=== PATIENT | female | born 1955 | race Caucasian/White ===

== ENCOUNTER 2016-09-27 13:20 | Inpatient (IN) | payer MEDICARE, MEDICAID ==
[2016-09-27] MEDS ORDERED: Tuberculin, PPD 5 Units/0.1 ML 1 ML MDV IDERM ONE (14:07)
--- NOTE | 2016-09-27 14:07 | PCM.HP ---
H&P History of Present Illness - General Date of Service: 09/27/16 Admit Problem/Dx: Femur fracture - right rehabilitation Source of Information: Patient, Old records History Limitations: Reports: No limitations - History of Present Illness Initial Comments - Free Text/Narative: This is a 61yo F transferred from [facility] for post op rehabilitation in Swing Bed for a right femur fracture. She has a referral for Dr. Ontiveros to f/u, rmoveal christel, Xray and assess. Patient states she is in pain on arrival but denies other concerns. Location: Reports: lower extremity, right Quality: Reports: Same as previous episode Severity: moderate Improves with: Reports: Medication Associated Symptoms: Reports: denies other symptoms - Related Data Allergies/Adverse Reactions: Allergies Allergy/AdvReac Type Severity Reaction Status Date / Time Penicillins Allergy Unknown Edema Verified 09/27/16 09:12 shellfish derived Allergy Unknown Anaphylactic Verified 09/27/16 09:12 Shock Sulfa (Sulfonamide Allergy Unknown Edema Verified 09/27/16 09:12 Antibiotics) clonidine AdvReac Intermediate Lethargy Verified 09/27/16 09:12 klonopin AdvReac Intermediate Lethargy Uncoded 09/27/16 09:12 Home Medications: Home Meds Montelukast Sodium [Singulair] 10 mg PO DAILY@1200 10/02/14 [History] guaiFENesin [Mucinex] 600 mg PO BID 10/02/14 [History] Insulin Glarg,Human.Rec.Analog [Lantus Solostar] 20 units SUBCUT BEDTIME pen [Rx] Lisinopril [Prinivil] 2.5 mg PO DAILY tablet 10/10/14 [Rx] Omeprazole 20 mg PO ACBRK 11/04/14 [History] predniSONE 20 mg PO DAILY 11/04/14 [History] Albuterol [Proventil Neb Soln] 2.5 mg INH QID neb 05/08/15 [Rx] Albuterol [Proair HFA] 1 puff INH Q4HR PRN 06/04/15 [History] Cholecalciferol (Vitamin D3) [Vitamin D3] 1,000 units PO DAILY@1200 06/04/15 [ History] Fluticasone Propionate [Flonase] 1 spray NASBOTH DAILY 11/11/15 [History] Formoterol [Perforomist] 20 mcg NEB BID 06/04/15 [History] Furosemide [Lasix] 40 mg PO DAILY 06/04/15 [History] Gabapentin [Neurontin] 600 mg PO TID 06/04/15 [History] Desvenlafaxine [Pristiq] 50 mg PO QPM 01/03/16 [History] Metoprolol Tartrate [Lopressor] 25 mg PO BID 01/03/16 [History] fentaNYL [Fentanyl] 50 mcg TD ASDIRECTED 01/03/16 [History] traMADol [Ultram] 50 mg PO QID 01/03/16 [History] LORazepam [Ativan] 0.5 mg PO TID 06/22/16 [History] Melatonin 5 mg PO BEDTIME 06/22/16 [History] Multivitamins [Childrens Chewable Vitamin] 1 tab PO DAILY@1200 06/22/16 [History ] Acetylcysteine [Mucomyst 10%] 1 inh INH BID 09/18/16 [History] Roflumilast [Daliresp] 500 mcg PO DAILY 09/18/16 [History] Acetaminophen [Tylenol Extra Strength] 1,000 mg PO TID 09/27/16 [History] Enoxaparin [Lovenox] 40 mg SUBCUT DAILY 09/27/16 [History] HYDROmorphone [Dilaudid] 2 - 4 mg PO Q4H PRN 09/27/16 [History] Lidocaine 5% [Lidoderm 5%] 1 patch TOP DAILY 09/27/16 [History] Nicotine [Nicotine Patch] 1 patch TD DAILY 09/27/16 [History] Nystatin 1 applic TP TID 09/27/16 [History] Sennosides/Docusate Sodium [Senna-Docusate Sodium] 1 tab PO BID 09/27/16 [ History] diphenhydrAMINE [Benadryl] 25 mg PO Q4H PRN 09/27/16 [History] Past Medical History HEENT History: Reports: Allergic rhinitis, Hard of hearing, Impaired vision, Other (see below) Other HEENT History: trach placed x 2 years ago Cardiovascular History: Reports: Heart Failure, Hypertension Respiratory History: Reports: COPD Other Respiratory History: SOB excessive plegm Gastrointestinal History: Reports: Chronic constipation, GERD Genitourinary History: Reports: Chronic renal insuffiency, UTI, recurrent Other Genitourinary History: no uti recently 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: Musculoskeletal History: Reports: Arthritis, Back pain, chronic, Neck pain, chronic Neurological History: Reports: Migraines Psychiatric History: Reports: Anxiety, Depression Endocrine/Metabolic History: Reports: Diabetes, type II Hematologic History: Reports: Anemia Dermatologic History: Reports: Other (see below) Other Dermatologic History: bruises easily - Infectious Disease History Infectious Disease History: Reports: VRE - Past Surgical History Other HEENT Surgeries/Procedures: Tracheostomy GI Surgical History: Reports: Hernia, abdominal Social & Family History - Family History Family Medical History: Noncontributory Cardiac: Reports: Hypertension Respiratory: Reports: Asthma, COPD Psychiatric: Reports: Anxiety - Tobacco Use Smoking Status *Q: Current Every Day Smoker Years of Tobacco use: 45 Packs/Tins Daily: 0.5 Used Tobacco, but Quit: No Month Tobacco Last Used: Apr Second Hand Smoke Exposure: Yes - Alcohol Use Days Per Week of Alcohol Use: 0 - Recreational Drug Use Recreational Drug Use: No Drug Use in Last 12 Months: No - Living Situation & Occupation Living situation: Reports: single, with significant other Occupation: disabled H&P Review of Systems - Review of Systems: Review Of Systems: ROS reveals no pertinent complaints other than HPI. Exam - Exam Exam: See Below - Vital Signs Weight: 83.461 kg - Exam General: alert, oriented, cooperative HEENT: PERRLA, Conjunctiva clear Neck: other (tracheostomy) Lungs: Normal respiratory effort, Decreased breath sounds Cardiovascular: regular rate, tachycardia Abdomen: normal bowel sounds, soft Back Exam: normal inspection Extremities: edema (2+) Peripheral Pulses: 2+: dorsalis pedis (L), dorsalis pedis (R) Skin: warm, dry, intact Neurological: cranial nerves intact, reflexes equal bilateral Neuro Extensive - Mental Status: alert, oriented x3, normal mood/affect Neuro Extensive - Motor, Sensory, Reflexes: CN II-XII intact *Q Meaningful Use (ADM) - VTE *Q VTE Criteria *Q: - Stroke *Q Stroke Criteria *Q: - AMI *Q AMI Criteria *Q: - Problem List (1) Anxiety SNOMED Code(s): 55147831 ICD Code: F41.9 - ANXIETY DISORDER, UNSPECIFIED Status: Acute (2) Femur fracture, right SNOMED Code(s): 97766275 ICD Code: S72.91XA - UNSP FRACTURE OF RIGHT FEMUR, INIT FOR CLOS FX Status : Acute Priority: High (3) CHF, Congestive heart failure SNOMED Code(s): 91730674 ICD Code: I50.9 - HEART FAILURE, UNSPECIFIED Status: Chronic Problem Details: 08/14/2013 Continue with Lasix po and weight will do Chem 8 today. (4) COLD, Chronic obstructive lung disease SNOMED Code(s): 09792618 ICD Code: J44.9 - CHRONIC OBSTRUCTIVE PULMONARY DISEASE, UNSPECIFIED Status : Chronic Priority: High Onset Date: Unknown Problem Details: 11/14/2014 patient was given a nebulizer on the ambulance and she doesnt seem in distress. Blood gases done via venous with ph 7.42 and pco2 67, po2 43.6 At this time will continue with normal meds as at home. (5) Chronic hypercapnic respiratory failure SNOMED Code(s): 495210105 ICD Code: J96.12 - CHRONIC RESPIRATORY FAILURE WITH HYPERCAPNIA Status: Chronic Priority: Medium (6) Tobacco abuse SNOMED Code(s): 449116236, 070018537 ICD Code: Z72.0 - TOBACCO USE Status: Chronic Priority: High Onset Date : 02/02/16 Problem List Initiated/Reviewed/Updated: Yes Assessment/Plan Comment:: Patient admitted as Swing Bed. Meds reconciled and PT/OT ordered. Dr. Ontiveros referral to be ordered.
[2016-09-27] MEDS ORDERED: HYDROMORPHONE 2 MG PO PRN (14:08)
[2016-09-27] MEDS ORDERED: diphenhydrAMINE 25 MG Cap PO PRN (14:08)
[2016-09-27] MEDS ORDERED: Albuterol 8 GM Inhaler INH PRN (14:08)
[2016-09-27] MEDS ORDERED: Non-Formulary Medication 1 Each (Fentanyl [Fentanyl] 50 MCG) TD SCH (14:15)
[2016-09-27] MEDS ORDERED: Albuterol/Ipratropium 3.0-0.5 MG/3 ML Neb Soln INH PRN (14:43)
[2016-09-27] MEDS ORDERED: Cholecalciferol (Vitamin D3) 2,000 Unit Cap ONE (14:44)
[2016-09-27] MEDS ORDERED: Montelukast 10 MG Tab ONE (14:45)
[2016-09-27] MEDS ORDERED: Gabapentin 600 MG Tab ONE (14:45)
[2016-09-27] MEDS ORDERED: Albuterol 0.083% 2.5 MG/3 ML Neb Soln INH SCH (16:00)
[2016-09-27] MEDS: Acetaminophen/oxyCODONE 325-5 MG Tab PO PRN ×3 (17:08→23:26)
[2016-09-27] MEDS: traMADol 50 MG Tab PO SCH ×2 (17:09→21:02)
[2016-09-27] MEDS: Omeprazole 20 MG Cap.CR PO SCH (17:11)
[2016-09-27] MEDS: fentaNYL 50 MCG/HR Transdermal Patch TRDERM SCH (17:15)
[2016-09-27] MEDS: Budesonide 0.5 MG/2 ML Neb Susp NEB SCH ×2 (17:15→22:19)
[2016-09-27] MEDS: Nicotine 21 MG/24 Hr Patch TRDERM SCH (17:18)
[2016-09-27] MEDS: Insulin Aspart 100 Units/ML 3 ML Pen SUBCUT SCH (17:31)
[2016-09-27] MEDS ORDERED: ACETYLCYSTEINE INH SCH (20:00)
[2016-09-27] MEDS ORDERED: Acetaminophen 500 MG Tab PO SCH (20:00)
[2016-09-27] MEDS ORDERED: Non-Formulary Medication 1 Each (Melatonin [Melatonin] 5 MG) PO SCH (20:00)
[2016-09-27] MEDS ORDERED: Insulin Glargine,Human Rec. Analog 100 Units/ML 3 ML Pen SUBCUT SCH (20:00)
[2016-09-27] MEDS: Gabapentin 300 MG Cap PO SCH (20:56)
[2016-09-27] MEDS: Desvenlafaxine 50 MG Tab.ER PO SCH (20:57)
[2016-09-27] MEDS: Metoprolol Tartrate 25 MG Tab PO SCH (20:58)
[2016-09-27] MEDS: LORazepam 0.5 MG Tab PO SCH (21:01)
[2016-09-27] MEDS: Melatonin 3 MG Tab PO SCH (21:01)
[2016-09-27] MEDS: guaiFENesin 600 MG Tab.ER PO SCH (21:06)
[2016-09-27] MEDS: Insulin Detemir 100 Units/ML 3 ML Pen SUBCUT SCH (21:08)
[2016-09-27] MEDS: Acetylcysteine 20% 200 MG/ML 30 ML Nebulizer Soln SDV INH SCH (21:12)
[2016-09-27] MEDS: Nystatin Topical Powder 15 GM Bottle TOP SCH (23:12)
[2016-09-28] MEDS: Albuterol/Ipratropium 3.0-0.5 MG/3 ML Neb Soln INH SCH ×5 (03:40→20:30)
[2016-09-28] MEDS: Albuterol 0.083% 2.5 MG/3 ML Neb Soln INH PRN (04:16)
[2016-09-28] MEDS: Acetaminophen/oxyCODONE 325-5 MG Tab PO PRN (06:19)
[2016-09-28] MEDS: Omeprazole 20 MG Cap.CR PO SCH (06:58)
[2016-09-28] MEDS ORDERED: Nicotine 7 MG/24 Hr Patch TRDERM SCH (08:00)
[2016-09-28] MEDS: Enoxaparin 40 MG/0.4 ML Syringe SUBCUT SCH (08:27)
[2016-09-28] MEDS: LORazepam 0.5 MG Tab PO SCH ×4 (08:27→20:29)
[2016-09-28] MEDS: Metoprolol Tartrate 25 MG Tab PO SCH ×2 (08:27→20:27)
[2016-09-28] MEDS: Furosemide 20 MG Tab PO SCH (08:28)
[2016-09-28] MEDS: traMADol 50 MG Tab PO SCH ×4 (08:28→20:29)
[2016-09-28] MEDS: Gabapentin 300 MG Cap PO SCH ×4 (08:29→20:27)
[2016-09-28] MEDS: predniSONE 5 MG Tab PO SCH (08:29)
[2016-09-28] MEDS: Lisinopril 2.5 MG Tab PO SCH (08:29)
[2016-09-28] MEDS: Roflumilast 500 MCG Tab PO SCH (08:29)
[2016-09-28] MEDS: Nystatin Topical Powder 15 GM Bottle TOP SCH ×2 (08:31→13:29)
[2016-09-28] MEDS: Insulin Aspart 100 Units/ML 3 ML Pen SUBCUT SCH ×3 (08:31→17:22)
[2016-09-28] MEDS: glipiZIDE 2.5 MG Tab.ER PO SCH (08:32)
[2016-09-28] MEDS: guaiFENesin 600 MG Tab.ER PO SCH ×2 (08:32→20:28)
[2016-09-28] MEDS: Fluticasone Propionate Nasal Spray 16 GM Bottle NASBOTH SCH (08:34)
[2016-09-28] MEDS: Budesonide 0.5 MG/2 ML Neb Susp NEB SCH ×2 (08:34→21:40)
[2016-09-28] MEDS: Lidocaine 5% 700 MG Patch TOP SCH (08:35)
[2016-09-28] MEDS: Acetylcysteine 20% 200 MG/ML 30 ML Nebulizer Soln SDV INH SCH (08:38)
[2016-09-28] MEDS ORDERED: Acetaminophen/HYDROcodone 325-10 MG Tab ONE (11:33)
[2016-09-28] MEDS ORDERED: diphenhydrAMINE 50 MG Cap ONE (11:34)
[2016-09-28] MEDS: Cholecalciferol (Vitamin D3) 1,000 Unit Tab PO SCH (12:43)
[2016-09-28] MEDS: Montelukast 10 MG Tab PO SCH (12:43)
[2016-09-28] MEDS: Multivitamin, Childrens Tab.Chew PO SCH (12:43)
[2016-09-28] MEDS: Non-Formulary Medication 1 Each (Umeclidinium Bromide [Incruse Ellipta] 1 PUFF) IH SCH (12:44)
[2016-09-28] MEDS: Nicotine 21 MG/24 Hr Patch TRDERM SCH (15:52)
[2016-09-28] MEDS: diphenhydrAMINE 50 MG Cap PO PRN (15:53)
[2016-09-28] MEDS: Acetaminophen/HYDROcodone 325-10 MG Tab PO PRN ×2 (15:53→21:50)
[2016-09-28] MEDS: Melatonin 3 MG Tab PO SCH (20:27)
[2016-09-28] MEDS: Desvenlafaxine 50 MG Tab.ER PO SCH (20:29)
[2016-09-28] MEDS: Insulin Detemir 100 Units/ML 3 ML Pen SUBCUT SCH (21:45)
[2016-09-29] MEDS: Acetaminophen/HYDROcodone 325-10 MG Tab PO PRN ×4 (04:22→21:13)
[2016-09-29] MEDS: Albuterol 0.083% 2.5 MG/3 ML Neb Soln INH PRN ×3 (04:30→21:14)
[2016-09-29] MEDS: Omeprazole 20 MG Cap.CR PO SCH (07:45)
[2016-09-29] MEDS: Insulin Aspart 100 Units/ML 3 ML Pen SUBCUT SCH ×3 (08:00→17:00)
[2016-09-29] MEDS: LORazepam 0.5 MG Tab PO SCH ×3 (08:10→20:57)
[2016-09-29] MEDS: Roflumilast 500 MCG Tab PO SCH (08:10)
[2016-09-29] MEDS: Lidocaine 5% 700 MG Patch TOP SCH (08:15)
[2016-09-29] MEDS: predniSONE 5 MG Tab PO SCH (08:15)
[2016-09-29] MEDS: Lisinopril 2.5 MG Tab PO SCH (08:15)
[2016-09-29] MEDS: Gabapentin 300 MG Cap PO SCH ×3 (08:15→20:58)
[2016-09-29] MEDS: Enoxaparin 40 MG/0.4 ML Syringe SUBCUT SCH (08:15)
[2016-09-29] MEDS: Fluticasone Propionate Nasal Spray 16 GM Bottle NASBOTH SCH (08:15)
[2016-09-29] MEDS: glipiZIDE 2.5 MG Tab.ER PO SCH (08:15)
[2016-09-29] MEDS: Furosemide 20 MG Tab PO SCH (08:15)
[2016-09-29] MEDS: Metoprolol Tartrate 25 MG Tab PO SCH ×2 (08:15→20:59)
[2016-09-29] MEDS: guaiFENesin 600 MG Tab.ER PO SCH ×2 (08:15→21:02)
[2016-09-29] MEDS: Non-Formulary Medication 1 Each (Umeclidinium Bromide [Incruse Ellipta] 1 PUFF) IH SCH (08:50)
[2016-09-29] MEDS: Budesonide 0.5 MG/2 ML Neb Susp NEB SCH ×2 (09:00→20:57)
[2016-09-29] MEDS: Acetylcysteine 20% 200 MG/ML 30 ML Nebulizer Soln SDV INH SCH ×2 (09:00→20:55)
[2016-09-29] MEDS: traMADol 50 MG Tab PO SCH ×4 (10:16→20:58)
[2016-09-29] MEDS: Albuterol/Ipratropium 3.0-0.5 MG/3 ML Neb Soln INH SCH ×4 (10:21→21:16)
[2016-09-29] MEDS: Multivitamin, Childrens Tab.Chew PO SCH (11:44)
[2016-09-29] MEDS: Cholecalciferol (Vitamin D3) 1,000 Unit Tab PO SCH (11:45)
[2016-09-29] MEDS: Montelukast 10 MG Tab PO SCH (11:45)
[2016-09-29] MEDS: Nystatin Topical Powder 15 GM Bottle TOP SCH ×2 (13:27→20:59)
[2016-09-29] MEDS: Nicotine 21 MG/24 Hr Patch TRDERM SCH (16:58)
[2016-09-29] MEDS: Desvenlafaxine 50 MG Tab.ER PO SCH (20:58)
[2016-09-29] MEDS: Melatonin 3 MG Tab PO SCH (20:59)
[2016-09-29] MEDS: Insulin Detemir 100 Units/ML 3 ML Pen SUBCUT SCH (21:16)
[2016-09-30] MEDS: Acetaminophen/HYDROcodone 325-10 MG Tab PO PRN ×6 (01:38→22:18)
[2016-09-30] MEDS: diphenhydrAMINE 50 MG Cap PO PRN ×2 (05:37→22:24)
[2016-09-30] MEDS: Omeprazole 20 MG Cap.CR PO SCH (06:15)
[2016-09-30] MEDS: Lisinopril 2.5 MG Tab PO SCH (08:01)
[2016-09-30] MEDS: Furosemide 20 MG Tab PO SCH (08:01)
[2016-09-30] MEDS: traMADol 50 MG Tab PO SCH ×4 (08:02→20:37)
[2016-09-30] MEDS: Metoprolol Tartrate 25 MG Tab PO SCH ×2 (08:02→20:38)
[2016-09-30] MEDS: Gabapentin 300 MG Cap PO SCH ×3 (08:03→20:37)
[2016-09-30] MEDS: LORazepam 0.5 MG Tab PO SCH ×3 (08:04→20:36)
[2016-09-30] MEDS: Roflumilast 500 MCG Tab PO SCH (08:04)
[2016-09-30] MEDS: glipiZIDE 2.5 MG Tab.ER PO SCH (08:04)
[2016-09-30] MEDS: predniSONE 5 MG Tab PO SCH (08:04)
[2016-09-30] MEDS: Fluticasone Propionate Nasal Spray 16 GM Bottle NASBOTH SCH (08:05)
[2016-09-30] MEDS: Enoxaparin 40 MG/0.4 ML Syringe SUBCUT SCH (08:05)
[2016-09-30] MEDS: Lidocaine 5% 700 MG Patch TOP SCH (08:05)
[2016-09-30] MEDS: Nystatin Topical Powder 15 GM Bottle TOP SCH ×4 (08:06→20:47)
[2016-09-30] MEDS: guaiFENesin 600 MG Tab.ER PO SCH ×2 (08:07→20:36)
[2016-09-30] MEDS: Albuterol/Ipratropium 3.0-0.5 MG/3 ML Neb Soln INH SCH ×4 (08:07→20:40)
[2016-09-30] MEDS: Budesonide 0.5 MG/2 ML Neb Susp NEB SCH ×2 (08:07→20:37)
[2016-09-30] MEDS: Acetylcysteine 20% 200 MG/ML 30 ML Nebulizer Soln SDV INH SCH ×2 (08:07→20:36)
[2016-09-30] MEDS: Insulin Aspart 100 Units/ML 3 ML Pen SUBCUT SCH ×3 (08:14→17:20)
[2016-09-30] MEDS: Non-Formulary Medication 1 Each (Umeclidinium Bromide [Incruse Ellipta] 1 PUFF) IH SCH (10:55)
[2016-09-30] MEDS: Multivitamin, Childrens Tab.Chew PO SCH (12:37)
[2016-09-30] MEDS: Montelukast 10 MG Tab PO SCH (12:37)
[2016-09-30] MEDS: Cholecalciferol (Vitamin D3) 1,000 Unit Tab PO SCH (12:38)
[2016-09-30] MEDS: Albuterol 0.083% 2.5 MG/3 ML Neb Soln INH PRN ×2 (13:34→20:46)
[2016-09-30] MEDS: Ketorolac 60 MG/2 ML SDV IM PRN ×2 (14:17→22:17)
[2016-09-30] MEDS: fentaNYL 50 MCG/HR Transdermal Patch TRDERM SCH (16:05)
[2016-09-30] MEDS: Nicotine 21 MG/24 Hr Patch TRDERM SCH (16:06)
[2016-09-30] MEDS ORDERED: oxyCODONE 5 MG Tab PO PRN (16:58)
[2016-09-30] MEDS: Insulin Detemir 100 Units/ML 3 ML Pen SUBCUT SCH (20:20)
[2016-09-30] MEDS: Desvenlafaxine 50 MG Tab.ER PO SCH (20:36)
[2016-09-30] MEDS: Melatonin 3 MG Tab PO SCH (20:39)
[2016-10-01] MEDS: Acetaminophen/HYDROcodone 325-10 MG Tab PO PRN ×3 (03:10→20:26)
[2016-10-01] MEDS: Omeprazole 20 MG Cap.CR PO SCH (06:10)
[2016-10-01] MEDS ORDERED: Albuterol 0.083% 2.5 MG/3 ML Neb Soln ONE (06:14)
[2016-10-01] MEDS: predniSONE 5 MG Tab PO SCH (08:05)
[2016-10-01] MEDS: Roflumilast 500 MCG Tab PO SCH (08:06)
[2016-10-01] MEDS: Lisinopril 2.5 MG Tab PO SCH (08:06)
[2016-10-01] MEDS: Metoprolol Tartrate 25 MG Tab PO SCH ×2 (08:11→20:19)
[2016-10-01] MEDS: traMADol 50 MG Tab PO SCH ×4 (08:11→20:25)
[2016-10-01] MEDS: Lidocaine 5% 700 MG Patch TOP SCH (08:12)
[2016-10-01] MEDS: LORazepam 0.5 MG Tab PO SCH ×3 (08:12→20:25)
[2016-10-01] MEDS: Gabapentin 300 MG Cap PO SCH ×3 (08:12→20:25)
[2016-10-01] MEDS: Enoxaparin 40 MG/0.4 ML Syringe SUBCUT SCH (08:13)
[2016-10-01] MEDS: guaiFENesin 600 MG Tab.ER PO SCH ×2 (08:20→20:28)
[2016-10-01] MEDS: glipiZIDE 2.5 MG Tab.ER PO SCH (08:20)
[2016-10-01] MEDS: Furosemide 20 MG Tab PO SCH (08:20)
[2016-10-01] MEDS: Nystatin Topical Powder 15 GM Bottle TOP SCH ×3 (08:21→20:28)
[2016-10-01] MEDS: Fluticasone Propionate Nasal Spray 16 GM Bottle NASBOTH SCH (08:22)
[2016-10-01] MEDS: Albuterol/Ipratropium 3.0-0.5 MG/3 ML Neb Soln INH SCH ×4 (08:22→20:28)
[2016-10-01] MEDS: Insulin Aspart 100 Units/ML 3 ML Pen SUBCUT SCH ×3 (08:24→18:04)
[2016-10-01] MEDS: Non-Formulary Medication 1 Each (Umeclidinium Bromide [Incruse Ellipta] 1 PUFF) IH SCH (08:26)
[2016-10-01] MEDS: Budesonide 0.5 MG/2 ML Neb Susp NEB SCH ×2 (08:26→20:29)
[2016-10-01] MEDS ORDERED: traMADol 50 MG Tab ONE (08:37)
[2016-10-01] MEDS: Ketorolac 60 MG/2 ML SDV IM PRN ×2 (09:25→18:17)
[2016-10-01] MEDS: Acetylcysteine 20% 200 MG/ML 30 ML Nebulizer Soln SDV INH SCH ×2 (10:05→20:28)
[2016-10-01] MEDS ORDERED: Ketorolac 10 MG Tab ONE (10:55)
[2016-10-01] MEDS: Albuterol 0.083% 2.5 MG/3 ML Neb Soln INH PRN ×2 (17:07→23:29)
[2016-10-01] MEDS: Multivitamin, Childrens Tab.Chew PO SCH (18:07)
[2016-10-01] MEDS: Montelukast 10 MG Tab PO SCH (18:08)
[2016-10-01] MEDS: Cholecalciferol (Vitamin D3) 1,000 Unit Tab PO SCH (18:08)
[2016-10-01] MEDS: Nicotine 21 MG/24 Hr Patch TRDERM SCH (18:09)
[2016-10-01] MEDS: Melatonin 3 MG Tab PO SCH (20:25)
[2016-10-01] MEDS: diphenhydrAMINE 50 MG Cap PO PRN (20:26)
[2016-10-01] MEDS: Desvenlafaxine 50 MG Tab.ER PO SCH (20:28)
[2016-10-01] MEDS: Insulin Detemir 100 Units/ML 3 ML Pen SUBCUT SCH (20:37)
[2016-10-02] MEDS: Acetaminophen/HYDROcodone 325-10 MG Tab PO PRN ×3 (03:44→20:40)
[2016-10-02] MEDS: Albuterol/Ipratropium 3.0-0.5 MG/3 ML Neb Soln INH SCH ×5 (05:42→20:09)
[2016-10-02] MEDS: diphenhydrAMINE 50 MG Cap PO PRN ×3 (05:57→20:39)
[2016-10-02] MEDS: Omeprazole 20 MG Cap.CR PO SCH ×2 (05:57→07:34)
[2016-10-02] MEDS: Albuterol 0.083% 2.5 MG/3 ML Neb Soln INH PRN ×2 (09:14→20:40)
[2016-10-02] MEDS: predniSONE 5 MG Tab PO SCH (09:29)
[2016-10-02] MEDS: Roflumilast 500 MCG Tab PO SCH (09:32)
[2016-10-02] MEDS: Metoprolol Tartrate 25 MG Tab PO SCH ×2 (09:34→20:13)
[2016-10-02] MEDS: Acetylcysteine 20% 200 MG/ML 30 ML Nebulizer Soln SDV INH SCH ×2 (09:36→20:06)
[2016-10-02] MEDS: Lisinopril 2.5 MG Tab PO SCH (09:41)
[2016-10-02] MEDS: Gabapentin 300 MG Cap PO SCH ×3 (09:42→20:07)
[2016-10-02] MEDS: traMADol 50 MG Tab PO SCH ×4 (09:42→20:11)
[2016-10-02] MEDS: LORazepam 0.5 MG Tab PO SCH ×3 (09:43→20:12)
[2016-10-02] MEDS: Furosemide 20 MG Tab PO SCH (09:44)
[2016-10-02] MEDS: guaiFENesin 600 MG Tab.ER PO SCH ×2 (09:45→20:00)
[2016-10-02] MEDS: glipiZIDE 2.5 MG Tab.ER PO SCH (09:46)
[2016-10-02] MEDS: Fluticasone Propionate Nasal Spray 16 GM Bottle NASBOTH SCH (09:46)
[2016-10-02] MEDS: Lidocaine 5% 700 MG Patch TOP SCH (09:47)
[2016-10-02] MEDS: Enoxaparin 40 MG/0.4 ML Syringe SUBCUT SCH (09:47)
[2016-10-02] MEDS: Insulin Aspart 100 Units/ML 3 ML Pen SUBCUT SCH ×3 (10:04→18:29)
[2016-10-02] MEDS: Non-Formulary Medication 1 Each (Umeclidinium Bromide [Incruse Ellipta] 1 PUFF) IH SCH (10:18)
[2016-10-02] MEDS: Budesonide 0.5 MG/2 ML Neb Susp NEB SCH ×2 (10:18→20:09)
[2016-10-02] MEDS: Ketorolac 60 MG/2 ML SDV IM PRN (10:37)
[2016-10-02] MEDS: Cholecalciferol (Vitamin D3) 1,000 Unit Tab PO SCH (12:41)
[2016-10-02] MEDS: Multivitamin, Childrens Tab.Chew PO SCH (12:41)
[2016-10-02] MEDS: Montelukast 10 MG Tab PO SCH (12:41)
[2016-10-02] MEDS: Nicotine 21 MG/24 Hr Patch TRDERM SCH (16:24)
[2016-10-02] MEDS: Nystatin Topical Powder 15 GM Bottle TOP SCH ×2 (17:40→20:10)
[2016-10-02] MEDS ORDERED: predniSONE 10 MG Tab PO ONE (17:50)
[2016-10-02] MEDS: Desvenlafaxine 50 MG Tab.ER PO SCH (20:07)
[2016-10-02] MEDS: Melatonin 3 MG Tab PO SCH (20:12)
[2016-10-03] MEDS: Albuterol/Ipratropium 3.0-0.5 MG/3 ML Neb Soln INH SCH ×5 (01:14→20:07)
[2016-10-03] MEDS: Ketorolac 60 MG/2 ML SDV IM PRN ×3 (03:10→23:11)
[2016-10-03] MEDS: Insulin Detemir 100 Units/ML 3 ML Pen SUBCUT SCH ×2 (06:54→20:05)
[2016-10-03] MEDS: Budesonide 0.5 MG/2 ML Neb Susp NEB SCH ×3 (06:54→20:07)
[2016-10-03] MEDS: Albuterol 0.083% 2.5 MG/3 ML Neb Soln INH PRN ×2 (07:19→16:35)
[2016-10-03] MEDS: Acetylcysteine 20% 200 MG/ML 30 ML Nebulizer Soln SDV INH SCH ×2 (07:49→20:13)
[2016-10-03] MEDS: Furosemide 20 MG Tab PO SCH (07:54)
[2016-10-03] MEDS: traMADol 50 MG Tab PO SCH ×4 (07:55→20:06)
[2016-10-03] MEDS: Omeprazole 20 MG Cap.CR PO SCH (07:55)
[2016-10-03] MEDS ORDERED: methylPREDNISolone Sodium Succinate 125 MG/2 ML SDV ONE (07:55)
[2016-10-03] MEDS: Gabapentin 300 MG Cap PO SCH ×3 (07:57→20:03)
[2016-10-03] MEDS: LORazepam 0.5 MG Tab PO SCH ×2 (07:57→08:04)
[2016-10-03] MEDS: Lisinopril 2.5 MG Tab PO SCH (07:58)
[2016-10-03] MEDS: Roflumilast 500 MCG Tab PO SCH (07:59)
[2016-10-03] MEDS: Metoprolol Tartrate 25 MG Tab PO SCH ×2 (08:00→20:03)
[2016-10-03] MEDS: Nystatin Topical Powder 15 GM Bottle TOP SCH ×4 (08:00→20:28)
[2016-10-03] MEDS ORDERED: predniSONE 20 MG Tab PO SCH (08:00)
[2016-10-03] MEDS: guaiFENesin 600 MG Tab.ER PO SCH ×2 (08:01→20:27)
[2016-10-03] MEDS ORDERED: LORazepam 0.5 MG Tab ONE (08:03)
[2016-10-03] MEDS: glipiZIDE 2.5 MG Tab.ER PO SCH (08:03)
[2016-10-03] MEDS: Fluticasone Propionate Nasal Spray 16 GM Bottle NASBOTH SCH (08:13)
[2016-10-03] MEDS: Lidocaine 5% 700 MG Patch TOP SCH (08:14)
[2016-10-03] MEDS: Enoxaparin 40 MG/0.4 ML Syringe SUBCUT SCH (08:14)
[2016-10-03] MEDS: methylPREDNISolone Sodium Succinate 125 MG/2 ML SDV IVPUSH SCH ×3 (08:15→20:03)
[2016-10-03] MEDS: Sodium Chloride 0.9% 10 ML Syringe FLUSH PRN ×2 (08:20→14:45)
[2016-10-03] MEDS: Insulin Aspart 100 Units/ML 3 ML Pen SUBCUT SCH ×3 (08:39→17:19)
[2016-10-03] MEDS: Acetaminophen/HYDROcodone 325-10 MG Tab PO PRN ×3 (08:52→23:13)
[2016-10-03] MEDS: Non-Formulary Medication 1 Each (Umeclidinium Bromide [Incruse Ellipta] 1 PUFF) IH SCH (09:50)
[2016-10-03] MEDS: LORazepam 1 MG Tab PO SCH ×3 (10:03→23:12)
[2016-10-03] MEDS: Cholecalciferol (Vitamin D3) 1,000 Unit Tab PO SCH (12:03)
[2016-10-03] MEDS: Multivitamin, Childrens Tab.Chew PO SCH (12:03)
[2016-10-03] MEDS: Montelukast 10 MG Tab PO SCH (12:03)
[2016-10-03] MEDS ORDERED: cefTRIAXone 1 GM in Sodium Chloride 0.9% 50 ML IV ONE (12:31)
[2016-10-03] MEDS ORDERED: Ferrous Sulfate 325 MG Tab ONE (16:02)
[2016-10-03] MEDS: Ferrous Sulfate 325 MG Tab PO SCH (16:37)
[2016-10-03] MEDS: fentaNYL 50 MCG/HR Transdermal Patch TRDERM SCH (16:39)
[2016-10-03] MEDS: Nicotine 21 MG/24 Hr Patch TRDERM SCH (16:39)
[2016-10-03] MEDS: Desvenlafaxine 50 MG Tab.ER PO SCH (20:06)
[2016-10-03] MEDS: Melatonin 3 MG Tab PO SCH (20:07)
[2016-10-03] MEDS: diphenhydrAMINE 50 MG Cap PO PRN (23:12)
[2016-10-04] MEDS: Sodium Chloride 0.9% 10 ML Syringe FLUSH PRN (04:00)
[2016-10-04] MEDS: LORazepam 1 MG Tab PO SCH ×3 (04:24→16:16)
[2016-10-04] MEDS: Albuterol 0.083% 2.5 MG/3 ML Neb Soln INH PRN ×3 (04:27→16:13)
[2016-10-04] MEDS: methylPREDNISolone Sodium Succinate 125 MG/2 ML SDV IVPUSH SCH ×4 (04:28→22:51)
[2016-10-04] MEDS ORDERED: cefTRIAXone 1 GM Vial ONE (07:19)
[2016-10-04] MEDS: traMADol 50 MG Tab PO SCH ×4 (07:46→21:49)
[2016-10-04] MEDS: Ferrous Sulfate 325 MG Tab PO SCH (07:47)
[2016-10-04] MEDS: Omeprazole 20 MG Cap.CR PO SCH (07:47)
[2016-10-04] MEDS: Roflumilast 500 MCG Tab PO SCH (07:48)
[2016-10-04] MEDS: Furosemide 20 MG Tab PO SCH (07:50)
[2016-10-04] MEDS: guaiFENesin 600 MG Tab.ER PO SCH ×2 (07:51→20:44)
[2016-10-04] MEDS: Gabapentin 300 MG Cap PO SCH ×3 (07:52→20:44)
[2016-10-04] MEDS: Albuterol/Ipratropium 3.0-0.5 MG/3 ML Neb Soln INH SCH ×5 (08:42→20:44)
[2016-10-04] MEDS: glipiZIDE 2.5 MG Tab.ER PO SCH (09:00)
[2016-10-04] MEDS: Acetaminophen/HYDROcodone 325-10 MG Tab PO PRN (09:00)
[2016-10-04] MEDS: cefTRIAXone 1 GM in Sodium Chloride 0.9% 50 ML IV SCH (09:04)
[2016-10-04] MEDS: Acetylcysteine 20% 200 MG/ML 30 ML Nebulizer Soln SDV INH SCH ×2 (09:06→20:24)
[2016-10-04] MEDS: Fluticasone Propionate Nasal Spray 16 GM Bottle NASBOTH SCH (09:30)
[2016-10-04] MEDS: Metoprolol Tartrate 25 MG Tab PO SCH ×2 (09:32→20:44)
[2016-10-04] MEDS: Lisinopril 2.5 MG Tab PO SCH (09:33)
[2016-10-04] MEDS: Lidocaine 5% 700 MG Patch TOP SCH (09:38)
[2016-10-04] MEDS: Enoxaparin 40 MG/0.4 ML Syringe SUBCUT SCH (09:40)
[2016-10-04] MEDS: Insulin Aspart 100 Units/ML 3 ML Pen SUBCUT SCH ×3 (09:45→18:27)
--- NOTE | 2016-10-04 09:56 | PCM.SN ---
- Free Text/Narrative Note: Patient was seen over the weekend for complaints of sob. Patient evaluated with concerns of worsening COPD and increased WBC. Patient has chronically decreased breath sounds and expiratory wheezes b/l lower lung. Patient has been on prednisone but has had no fever or chills and denies malaise. CBC done also showed continued anemia likely acute from recent surgery. Patient started on iron supplementation. Given increased prednisone burst. Solumedrol given. Rocephin given. We will continue Rocephin and solumedrol at this time.
[2016-10-04] MEDS: Non-Formulary Medication 1 Each (Umeclidinium Bromide [Incruse Ellipta] 1 PUFF) IH SCH (10:05)
[2016-10-04] MEDS: Budesonide 0.5 MG/2 ML Neb Susp NEB SCH ×2 (10:13→20:45)
[2016-10-04] MEDS: Nystatin Topical Powder 15 GM Bottle TOP SCH ×3 (10:14→21:43)
--- NOTE | 2016-10-04 10:38 | CR ---
DATE OF SERVICE: 10/04/2016 CLINICAL DATA: Elevated WBC. AP PORTABLE CHEST Comparison is made to a prior exam dated 06/22/2016. The patient is slightly rotated to the right and is in an apical lordotic position. The tracheostomy tube remains unchanged in position. The heart size is stable. There are mild atelectatic changes in both lung bases. The lungs are otherwise clear. No pneumothorax. No pleural effusions. [id number] MTDD
[2016-10-04] MEDS: Cholecalciferol (Vitamin D3) 1,000 Unit Tab PO SCH (12:11)
[2016-10-04] MEDS: Montelukast 10 MG Tab PO SCH (12:11)
[2016-10-04] MEDS: Multivitamin, Childrens Tab.Chew PO SCH (12:11)
[2016-10-04] MEDS: Nicotine 21 MG/24 Hr Patch TRDERM SCH (16:26)
[2016-10-04] MEDS: Melatonin 3 MG Tab PO SCH (20:44)
[2016-10-04] MEDS: Desvenlafaxine 50 MG Tab.ER PO SCH (20:45)
[2016-10-04] MEDS: Insulin Detemir 100 Units/ML 3 ML Pen SUBCUT SCH (22:45)
[2016-10-04] MEDS ORDERED: predniSONE 20 MG Tab ONE (23:02)
[2016-10-05] MEDS: LORazepam 1 MG Tab PO SCH ×3 (00:32→16:50)
[2016-10-05] MEDS: Acetaminophen/HYDROcodone 325-10 MG Tab PO PRN ×3 (00:33→14:16)
[2016-10-05] MEDS: diphenhydrAMINE 50 MG Cap PO PRN ×2 (00:35→20:50)
[2016-10-05] MEDS: Omeprazole 20 MG Cap.CR PO SCH (07:07)
[2016-10-05] MEDS: Ferrous Sulfate 325 MG Tab PO SCH (07:07)
[2016-10-05] MEDS: Lidocaine 5% 700 MG Patch TOP SCH (08:58)
[2016-10-05] MEDS: Furosemide 20 MG Tab PO SCH (09:00)
[2016-10-05] MEDS: Lisinopril 2.5 MG Tab PO SCH (09:01)
[2016-10-05] MEDS: Gabapentin 300 MG Cap PO SCH ×3 (09:01→20:50)
[2016-10-05] MEDS: glipiZIDE 2.5 MG Tab.ER PO SCH (09:01)
[2016-10-05] MEDS: Metoprolol Tartrate 25 MG Tab PO SCH ×2 (09:02→21:44)
[2016-10-05] MEDS: Fluticasone Propionate Nasal Spray 16 GM Bottle NASBOTH SCH (09:11)
[2016-10-05] MEDS: Budesonide 0.5 MG/2 ML Neb Susp NEB SCH ×2 (09:12→20:38)
[2016-10-05] MEDS: Enoxaparin 40 MG/0.4 ML Syringe SUBCUT SCH (09:15)
[2016-10-05] MEDS: guaiFENesin 600 MG Tab.ER PO SCH ×2 (09:18→20:51)
[2016-10-05] MEDS: Acetylcysteine 20% 200 MG/ML 30 ML Nebulizer Soln SDV INH SCH ×2 (09:19→20:34)
[2016-10-05] MEDS: Albuterol/Ipratropium 3.0-0.5 MG/3 ML Neb Soln INH SCH ×4 (09:24→20:49)
[2016-10-05] MEDS: Roflumilast 500 MCG Tab PO SCH (09:24)
[2016-10-05] MEDS: Insulin Aspart 100 Units/ML 3 ML Pen SUBCUT SCH ×3 (09:27→17:19)
[2016-10-05] MEDS: Nystatin Topical Powder 15 GM Bottle TOP SCH ×2 (09:27→14:17)
[2016-10-05] MEDS: traMADol 50 MG Tab PO SCH ×4 (09:31→20:51)
[2016-10-05] MEDS: Non-Formulary Medication 1 Each (Umeclidinium Bromide [Incruse Ellipta] 1 PUFF) IH SCH (09:33)
[2016-10-05] MEDS: cefTRIAXone 1 GM in Sodium Chloride 0.9% 50 ML IV SCH (10:30)
[2016-10-05] MEDS: Cholecalciferol (Vitamin D3) 1,000 Unit Tab PO SCH (12:39)
[2016-10-05] MEDS: Montelukast 10 MG Tab PO SCH (12:39)
[2016-10-05] MEDS: Multivitamin, Childrens Tab.Chew PO SCH (12:39)
[2016-10-05] MEDS: methylPREDNISolone Sodium Succinate 125 MG/2 ML SDV IVPUSH SCH (12:40)
[2016-10-05] MEDS: Ketorolac 60 MG/2 ML SDV IM PRN (14:32)
[2016-10-05] MEDS: Nicotine 21 MG/24 Hr Patch TRDERM SCH (16:47)
[2016-10-05] MEDS: Insulin Detemir 100 Units/ML 3 ML Pen SUBCUT SCH (20:30)
[2016-10-05] MEDS: Melatonin 3 MG Tab PO SCH (20:50)
[2016-10-05] MEDS: Desvenlafaxine 50 MG Tab.ER PO SCH (20:50)
[2016-10-06] MEDS: Acetaminophen/HYDROcodone 325-10 MG Tab PO PRN ×4 (02:05→20:48)
[2016-10-06] MEDS: Nystatin Topical Powder 15 GM Bottle TOP SCH ×4 (02:08→20:47)
[2016-10-06] MEDS: LORazepam 1 MG Tab PO SCH ×4 (02:08→23:04)
[2016-10-06] MEDS: predniSONE 20 MG Tab PO SCH (06:07)
[2016-10-06] MEDS: Ferrous Sulfate 325 MG Tab PO SCH (06:09)
[2016-10-06] MEDS: Omeprazole 20 MG Cap.CR PO SCH (06:09)
[2016-10-06] MEDS: Furosemide 20 MG Tab PO SCH (07:14)
[2016-10-06] MEDS: Gabapentin 300 MG Cap PO SCH ×3 (07:14→20:44)
[2016-10-06] MEDS: Roflumilast 500 MCG Tab PO SCH (07:15)
[2016-10-06] MEDS: glipiZIDE 2.5 MG Tab.ER PO SCH (07:15)
[2016-10-06] MEDS: traMADol 50 MG Tab PO SCH ×4 (07:15→20:42)
[2016-10-06] MEDS: Lisinopril 2.5 MG Tab PO SCH (07:16)
[2016-10-06] MEDS: Enoxaparin 40 MG/0.4 ML Syringe SUBCUT SCH (07:20)
[2016-10-06] MEDS: Metoprolol Tartrate 25 MG Tab PO SCH ×2 (07:20→20:44)
[2016-10-06] MEDS: guaiFENesin 600 MG Tab.ER PO SCH ×2 (07:21→20:45)
[2016-10-06] MEDS: cefTRIAXone 1 GM in Sodium Chloride 0.9% 50 ML IV SCH (07:23)
[2016-10-06] MEDS: Lidocaine 5% 700 MG Patch TOP SCH (07:23)
[2016-10-06] MEDS: Albuterol/Ipratropium 3.0-0.5 MG/3 ML Neb Soln INH SCH ×4 (07:24→20:45)
[2016-10-06] MEDS: Fluticasone Propionate Nasal Spray 16 GM Bottle NASBOTH SCH (07:25)
[2016-10-06] MEDS: Acetylcysteine 20% 200 MG/ML 30 ML Nebulizer Soln SDV INH SCH ×2 (07:29→20:53)
[2016-10-06] MEDS: Budesonide 0.5 MG/2 ML Neb Susp NEB SCH ×2 (07:29→20:45)
[2016-10-06] MEDS: Non-Formulary Medication 1 Each (Umeclidinium Bromide [Incruse Ellipta] 1 PUFF) IH SCH (07:31)
[2016-10-06] MEDS: Ketorolac 60 MG/2 ML SDV IM PRN ×2 (07:35→23:04)
[2016-10-06] MEDS ORDERED: Insulin Detemir 100 Units/ML 3 ML Pen SUBCUT SCH (07:42)
[2016-10-06] MEDS ORDERED: predniSONE 10 MG Tab PO SCH (09:00)
[2016-10-06] MEDS: Insulin Aspart 100 Units/ML 3 ML Pen SUBCUT SCH ×3 (09:19→17:36)
[2016-10-06] MEDS: Cholecalciferol (Vitamin D3) 1,000 Unit Tab PO SCH (12:03)
[2016-10-06] MEDS: Multivitamin, Childrens Tab.Chew PO SCH (12:03)
[2016-10-06] MEDS: Montelukast 10 MG Tab PO SCH (12:03)
[2016-10-06] MEDS: fentaNYL 50 MCG/HR Transdermal Patch TRDERM SCH (15:45)
[2016-10-06] MEDS: Nicotine 21 MG/24 Hr Patch TRDERM SCH (15:46)
[2016-10-06] MEDS: Desvenlafaxine 50 MG Tab.ER PO SCH (20:43)
[2016-10-06] MEDS: Melatonin 3 MG Tab PO SCH (20:43)
[2016-10-07] MEDS: predniSONE 20 MG Tab PO SCH (06:49)
[2016-10-07] MEDS: LORazepam 1 MG Tab PO SCH (06:50)
[2016-10-07] MEDS: Ferrous Sulfate 325 MG Tab PO SCH (06:50)
[2016-10-07] MEDS: Omeprazole 20 MG Cap.CR PO SCH (06:50)
[2016-10-07 11:08] VITALS: BP 161/96
--- NOTE | 2016-10-07 13:39 | DISCH ---
CHIEF COMPLAINT: I was called urgently for a heart rate of 160 and the patient was feeling short of breath. SUBJECTIVE: On entering the room the patient's heart rate was 160 and regular, blood pressure is 110 systolic. Map was greater than 60. The patient denied having any chest pain. States her breathing was short, but nothing that was unusual. 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 She did have a sense of impending doom. She has not had any fevers or chills. She has had some diarrhea over the last eight hours, which is non bloody, no mucus, some mild abdominal cramping with this. She is status post right femur surgery for fracture and has been in a swing bed status previously. She has had some swelling in lower extremities, but no pain in the thighs or calves. OBJECTIVE: VITAL SIGNS: Blood pressure 110 systolic, pulse is 160 and regular. EXTREMITIES: Extremities were warm. LUNGS: Revealed decreased breath sounds bilaterally, but no rales or wheezes. ABDOMEN: Reveals normoactive bowel sounds. Mildly distended. Mildly diffusely tender without rebound or guarding. EXTREMITIES: Lower extremities show 2+ edema bilaterally. No calf tenderness. No medial thigh tenderness bilaterally. Negative Homans' sign. Incision in the distal femur healing well without drainage or erythema. NEUROLOGIC: The patient is alert and oriented. Speech is normal. Neurologic exam grossly nonfocal. DIAGNOSTIC STUDIES: EKG done reveals what appears to be atrial flutter with a rapid ventricular response at 2:1. I do not see any acute ST-T wave changes. LABORATORY DATA: White count is 16.8, hemoglobin 9.1, platelet count 548. INR is 1. Sodium 139, potassium 4.7, chloride 102, bicarbonate 34, BUN 71, creatinine 1.94, blood sugar 125, troponin 0.035, and TSH is 1.45. Chest x-ray from 10/03/2016, revealed COPD, but no acute infiltrate. IMPRESSION: 1. Atrial flutter with rapid ventricular response. 2. Severe chronic obstructive pulmonary disease with hypercapnic hypoxemic respiratory failure. 3. Acute kidney injury. 4. Lower extremity edema. 5. Previous right femur surgery. PLAN: 1. IV will be placed. The patient will be moved to CCU. For rate control, we will plan a diltiazem drip, since, she has a history of COPD, we will stay away from increasing her beta blockade. Would consider stopping her beta blockade in the future, since, previous echo two years ago showed normal LV function, and EF of 60%, with LVH, and grade 1 diastolic dysfunction. Once, heart rate is controlled with IV, would then consider switching to oral medications. Check troponins x3. 2. For a pulmonary status, we will continue with O2 supplementation, frequent nebs. She is not having any chest pain to suggest PE, but the patient certainly is at increased risk, although, she was on Lovenox, DVT prophylaxis. At this time, ultrasound is not available. She is not having any chest pain or worsening hypoxia, so, we will follow this currently. 3. Acute kidney injury. Most likely it is related to mild dehydration, due to her hyperglycemia and combination of medications Toradol and lisinopril. Toradol and lisinopril will be held, to be given a 500 mL fluid flush and we will follow urine output closely. She currently is non-oliguric. 4. Diabetes mellitus. Her Levemir was increased from 20 to 30 units yesterday, and blood sugar this morning was 90. We will continue with this and monitor blood sugars with sliding scale. 5. Diarrhea, we will check a C. diff, since, she has been on antibiotics. Follow until C diff returns. 6. Continue with physical therapy for her postop right femur surgery. Anticipate once heart rate is controlled and oral medications could change back to swing status. ANDREAS/SVETLANA /[id number]
== END 2016-10-07 08:29 | disposition home or self-care (01) | DRG 559 ==
LOC: UNDOADMIN 13:35 → LB.MS 13:35
PROVIDERS: ADMIT Family Medicine; ATTEND Family Medicine
DX: S72.91XD Unspecified fracture of right femur, subsequent encounter for closed fracture with routine healing (principal); J96.91 Respiratory failure, unspecified with hypoxia; N17.9 Acute kidney failure, unspecified; I48.92 Unspecified atrial flutter; F17.200 Nicotine dependence, unspecified, uncomplicated; I50.9 Heart failure, unspecified; J44.9 Chronic obstructive pulmonary disease, unspecified; K21.9 Gastro-esophageal reflux disease without esophagitis; M19.90 Unspecified osteoarthritis, unspecified site; M54.2 Cervicalgia; F41.8 Other specified anxiety disorders; E11.9 Type 2 diabetes mellitus without complications; Z98.890 Other specified postprocedural states; Z79.01 Long term (current) use of anticoagulants; R19.7 Diarrhea, unspecified
CPT/HCPCS: 36415; 71010; 80048; 81001; 82962; 83036; 84443; 84484; 85025; 86580; 87015; 87040; 87045; 87046; 87070; 87081; 87205; 87899; 93005; 97110-GP; 97161-GP; 97165-GO; 97530-GO; 97530-GP; 97535-GO; A0425; A0428; A9270-GY; J0696; J1650; J1885; J2930; J7050; J7620

== ENCOUNTER 2016-10-07 08:30 | Inpatient (IN) | payer MEDICARE, MEDICAID ==
[2016-10-07] MEDS ORDERED: Diltiazem 25 MG/5 ML SDV IVPUSH ONE ×2 (09:23→10:00)
[2016-10-07] MEDS: LORazepam 1 MG Tab PO SCH ×2 (10:00→17:23)
[2016-10-07] MEDS: Diltiazem 100 MG in Sodium Chloride 0.9% 100 ML IV SCH ×2 (10:20→20:07)
[2016-10-07] MEDS ORDERED: Sodium Chloride 0.9% 10 ML Syringe FLUSH PRN (11:58)
[2016-10-07] MEDS ORDERED: diphenhydrAMINE 50 MG Cap PO PRN (11:58)
[2016-10-07] MEDS ORDERED: Albuterol 8 GM Inhaler INH PRN (11:58)
[2016-10-07] MEDS: Albuterol 0.083% 2.5 MG/3 ML Neb Soln INH PRN (13:00)
[2016-10-07] MEDS: Albuterol/Ipratropium 3.0-0.5 MG/3 ML Neb Soln INH SCH ×3 (13:20→22:13)
[2016-10-07] MEDS: Insulin Aspart 100 Units/ML 3 ML Pen SUBCUT SCH ×2 (13:21→17:23)
[2016-10-07] MEDS: Montelukast 10 MG Tab PO SCH (13:32)
[2016-10-07] MEDS: traMADol 50 MG Tab PO SCH ×3 (13:32→21:45)
[2016-10-07] MEDS: Acetaminophen/HYDROcodone 325-10 MG Tab PO PRN (13:33)
[2016-10-07] MEDS: Multivitamin, Childrens Tab.Chew PO SCH (13:33)
[2016-10-07] MEDS: Gabapentin 300 MG Cap PO SCH ×2 (13:33→21:29)
[2016-10-07] MEDS: Cholecalciferol (Vitamin D3) 1,000 Unit Tab PO SCH (13:34)
[2016-10-07] MEDS: oxyCODONE 5 MG Tab PO PRN ×2 (13:38→14:27)
[2016-10-07] MEDS ORDERED: Diltiazem 50 MG/10 ML SDV IVPUSH ONE (15:13)
[2016-10-07] MEDS: Nystatin Topical Powder 15 GM Bottle TOP SCH ×2 (16:09→22:13)
[2016-10-07] MEDS: Insulin Detemir 100 Units/ML 3 ML Pen SUBCUT SCH (20:29)
[2016-10-07] MEDS: Melatonin 3 MG Tab PO SCH (21:00)
[2016-10-07] MEDS: guaiFENesin 600 MG Tab.ER PO SCH (21:00)
[2016-10-07] MEDS: Desvenlafaxine 50 MG Tab.ER PO SCH (21:00)
[2016-10-07] MEDS: Metoprolol Tartrate 25 MG Tab PO SCH (21:00)
[2016-10-07] MEDS: Acetylcysteine 20% 200 MG/ML 30 ML Nebulizer Soln SDV INH SCH (22:14)
[2016-10-07] MEDS: Budesonide 0.5 MG/2 ML Neb Susp NEB SCH (22:14)
[2016-10-08] MEDS ORDERED: LORazepam 1 MG Tab ONE (01:12)
[2016-10-08] MEDS: LORazepam 1 MG Tab PO SCH ×3 (01:14→17:22)
[2016-10-08] MEDS: oxyCODONE 5 MG Tab PO PRN ×2 (01:17→14:27)
[2016-10-08] MEDS: Diltiazem 100 MG in Sodium Chloride 0.9% 100 ML IV SCH (02:18)
[2016-10-08] MEDS: Acetaminophen/HYDROcodone 325-10 MG Tab PO PRN ×2 (05:09→22:27)
[2016-10-08] MEDS: Omeprazole 20 MG Cap.CR PO SCH (06:37)
[2016-10-08] MEDS ORDERED: cefTRIAXone 1 GM in Sodium Chloride 0.9% 100 ML IV SCH (08:00)
[2016-10-08] MEDS ORDERED: Furosemide 20 MG Tab PO SCH (08:00)
[2016-10-08] MEDS ORDERED: Furosemide 40 MG Tab PO SCH (08:00)
[2016-10-08] MEDS ORDERED: Non-Formulary Medication 1 Each (Umeclidinium Bromide [Incruse Ellipta] 1 PUFF) IH SCH (08:00)
[2016-10-08] MEDS: glipiZIDE 2.5 MG Tab.ER PO SCH (08:05)
[2016-10-08] MEDS: Ferrous Sulfate 325 MG Tab PO SCH (08:06)
[2016-10-08] MEDS: Roflumilast 500 MCG Tab PO SCH (08:06)
[2016-10-08] MEDS: traMADol 50 MG Tab PO SCH ×4 (08:07→20:05)
[2016-10-08] MEDS: Metoprolol Tartrate 25 MG Tab PO SCH ×2 (08:09→20:15)
[2016-10-08] MEDS: Gabapentin 300 MG Cap PO SCH (08:10)
[2016-10-08] MEDS: predniSONE 20 MG Tab PO SCH (08:11)
[2016-10-08] MEDS: guaiFENesin 600 MG Tab.ER PO SCH ×2 (08:11→20:06)
[2016-10-08] MEDS: Acetylcysteine 20% 200 MG/ML 30 ML Nebulizer Soln SDV INH SCH ×2 (08:12→20:06)
[2016-10-08] MEDS: Enoxaparin 40 MG/0.4 ML Syringe SUBCUT SCH (08:12)
[2016-10-08] MEDS: Lidocaine 5% 700 MG Patch TOP SCH (08:12)
[2016-10-08] MEDS: Budesonide 0.5 MG/2 ML Neb Susp NEB SCH ×2 (08:12→20:03)
[2016-10-08] MEDS: Albuterol 0.083% 2.5 MG/3 ML Neb Soln INH PRN ×2 (08:13→20:34)
[2016-10-08] MEDS: Insulin Aspart 100 Units/ML 3 ML Pen SUBCUT SCH ×3 (08:14→17:23)
[2016-10-08] MEDS: Furosemide 40 MG Tab PO SCH ×2 (10:07→20:04)
[2016-10-08] MEDS: Diltiazem 240 MG Cap.CD PO SCH (10:07)
[2016-10-08] MEDS: Fluticasone Propionate Nasal Spray 16 GM Bottle NASBOTH SCH (10:08)
[2016-10-08] MEDS: Albuterol/Ipratropium 3.0-0.5 MG/3 ML Neb Soln INH SCH ×4 (10:08→20:04)
[2016-10-08] MEDS: Umeclidinium Bromide 62.5 MCG 30 Puff Inhaler IH SCH (10:09)
[2016-10-08] MEDS: Nystatin Topical Powder 15 GM Bottle TOP SCH ×3 (10:09→20:00)
--- NOTE | 2016-10-08 11:27 | PN ---
DATE OF VISIT: 10/08/2016 SUBJECTIVE: The patient had a more restful night. States her breathing is improved and is not quite at baseline, but close. She is starting to cough up a little bit of sputum with her acapella. She does not complain of any chest pain. She has not perceived palpitations or fast heart rate that she had yesterday. She is complaining of fluid gain and peripheral edema. Her abdominal pain has resolved and has not had any further diarrheal stools. Still is painful in her right shoulder and right distal femur from her previous surgery, but this was over two weeks ago. Otherwise, denies any other complaints. OBJECTIVE: VITAL SIGNS: Blood pressure 114/73, pulse is 93 and irregular, respiratory rate 19, and O2 sats 94%. Afebrile at 97.8. GENERAL: The patient does have peripheral edema in both upper and lower extremities with numerous bruising in both arms due to blood draws and IV sticks. Good capillary refill. The patient does have a trach in place with no surrounding erythema. LUNGS: Revealed decreased breath sounds bilaterally with a few wheezes auscultated, but no rales. CARDIAC: Reveals an irregular rhythm, but no gallop or rub. No right ventricular lift. ABDOMEN: Normal bowel sounds. Soft and nontender. EXTREMITIES: She does have 2 to 3+ edema in the lower extremities and also on the upper extremities. Lower extremities, there is no calf or thigh tenderness to palpation. Negative Homans sign bilaterally. NEUROLOGIC: She is alert and oriented. Speech is fluent. Asks appropriate questions. Grossly nonfocal. CURRENT LABORATORY DATA: White count 16.8, hemoglobin 8.7, and platelet count 485. Troponins from yesterday were negative. BMP is pending. IMPRESSION: 1. Pulmonary: The patient's chronic obstructive pulmonary disease is close to baseline. I would continue with nebs, acapella, and 40 mg oral steroids with the hope that we would be able to taper this in the near future. Her baseline prednisone dose is 20 mg daily. I did discontinue her antibiotics since I do not have a source. Her chest x- ray was normal. Urinalysis is negative. I think her white count is probably steroid and stress-induced. Still need to rule out Clostridium difficile. 2. Cardiac: The patient did go into rapid atrial flutter yesterday and necessitated moving her to the unit. Her heart rate now is controlled with diltiazem drip, and her blood pressure is tolerating this. We will plan on transitioning to oral Cardizem and stopping her drip today, and if her heart rate remains controlled, can move out of the ICU onto just a monitored bed, preferably for another 24 to 48 hours to ensure heart rate control, and if doing well, could transfer back to the swing bed. The patient will need an echocardiogram next week. The patient's troponins were negative. TSH and electrolytes were normal. 3. Edema: Food overload, most likely related to fluid given yesterday. We will start gradual diuresis with Lasix as long as renal function improves. 4. Acute kidney injury: The patient's baseline creatinine is 0.8. Creatinine did go up to 1.97 yesterday and is pending today. I suspect that this is multifactorial in nature related to Toradol, VANESSA inhibitor. Both of these have been stopped. We will follow renal function closely. Urinalysis is benign for active sediment. 5. Pain: Previous femur fracture surgery. I discussed with the patient regarding her hypercapnic hypoxemic respiratory failure that narcotics will definitely make this worse. At home, she was on just a fentanyl patch and tramadol, and recommended tapering her oxycodone and [place], and try to get back to just tramadol and her fentanyl patch. Long-term would be ideal to have this patient tapered off her fentanyl. Continue with the physical therapy for femur fracture. 6. Gastrointestinal: The patient's diarrhea has resolved today and Clostridium difficile is still pending. 7. Diabetes mellitus: I increased her Levemir two days ago. She did have some hypoglycemia yesterday morning. Now, her blood sugars are back up. We will continue with her 30 units of Levemir daily and her sliding scale as prescribed. May need to consider scheduled NovoLog with meals, starting with 5 units before each meal. 8. Anemia: Most likely secondary to her surgery and acute blood loss anemia. There is no evidence of any gastrointestinal bleeding. She is on gastrointestinal prophylaxis. She is on Lovenox for deep vein thrombosis prophylaxis and would continue this currently. If her renal function increases, we will have to switch her Lovenox to heparin. If the patient remains in atrial flutter and does not convert or echocardiogram shows something surprising, would have to consider long-term anticoagulation. Although, with the patient's recent femur fracture and fall, would have to leave this to primary care physician. ANDREAS/SVETLANA /[id number]
[2016-10-08] MEDS: Montelukast 10 MG Tab PO SCH (12:54)
[2016-10-08] MEDS: Cholecalciferol (Vitamin D3) 1,000 Unit Tab PO SCH (12:54)
[2016-10-08] MEDS: Multivitamin, Childrens Tab.Chew PO SCH (12:54)
[2016-10-08] MEDS: Gabapentin 600 MG Tab PO SCH ×2 (14:27→20:04)
[2016-10-08] MEDS: Nicotine 21 MG/24 Hr Patch TRDERM SCH (17:21)
[2016-10-08] MEDS: Melatonin 3 MG Tab PO SCH (20:04)
[2016-10-08] MEDS: Desvenlafaxine 50 MG Tab.ER PO SCH (20:04)
[2016-10-08] MEDS: Insulin Detemir 100 Units/ML 3 ML Pen SUBCUT SCH (20:35)
[2016-10-09] MEDS: LORazepam 1 MG Tab PO SCH ×3 (02:38→17:05)
[2016-10-09] MEDS ORDERED: Acetaminophen 325 MG Tab PO PRN (04:13)
[2016-10-09] MEDS ORDERED: Acetaminophen 325 MG Tab ONE (04:21)
[2016-10-09] MEDS: Omeprazole 20 MG Cap.CR PO SCH (06:30)
[2016-10-09] MEDS: traMADol 50 MG Tab PO SCH ×4 (08:33→19:54)
[2016-10-09] MEDS: Enoxaparin 40 MG/0.4 ML Syringe SUBCUT SCH (08:35)
[2016-10-09] MEDS: Ferrous Sulfate 325 MG Tab PO SCH (08:35)
[2016-10-09] MEDS: Gabapentin 600 MG Tab PO SCH ×3 (08:35→19:54)
[2016-10-09] MEDS: Metoprolol Tartrate 25 MG Tab PO SCH ×2 (08:36→20:01)
[2016-10-09] MEDS: Roflumilast 500 MCG Tab PO SCH (08:36)
[2016-10-09] MEDS: guaiFENesin 600 MG Tab.ER PO SCH ×2 (08:37→19:57)
[2016-10-09] MEDS: Nystatin Topical Powder 15 GM Bottle TOP SCH ×2 (08:37→17:04)
[2016-10-09] MEDS: Furosemide 40 MG Tab PO SCH ×3 (08:37→19:53)
[2016-10-09] MEDS: Fluticasone Propionate Nasal Spray 16 GM Bottle NASBOTH SCH (08:38)
[2016-10-09] MEDS: Lidocaine 5% 700 MG Patch TOP SCH (08:38)
[2016-10-09] MEDS: glipiZIDE 2.5 MG Tab.ER PO SCH (08:38)
[2016-10-09] MEDS: Albuterol/Ipratropium 3.0-0.5 MG/3 ML Neb Soln INH SCH ×3 (08:38→17:05)
[2016-10-09] MEDS: predniSONE 20 MG Tab PO SCH (08:39)
[2016-10-09] MEDS: Diltiazem 240 MG Cap.CD PO SCH (08:39)
[2016-10-09] MEDS: Umeclidinium Bromide 62.5 MCG 30 Puff Inhaler IH SCH (08:39)
[2016-10-09] MEDS: Budesonide 0.5 MG/2 ML Neb Susp NEB SCH ×2 (08:40→20:00)
[2016-10-09] MEDS: Acetylcysteine 20% 200 MG/ML 30 ML Nebulizer Soln SDV INH SCH ×2 (08:40→20:00)
[2016-10-09] MEDS: Insulin Aspart 100 Units/ML 3 ML Pen SUBCUT SCH ×3 (10:38→17:10)
--- NOTE | 2016-10-09 11:19 | PCM.PN ---
- General Info Date of Service: 10/09/16 Admission Dx/Problem (Free Text): Pt does not have any new symptoms over night. She has had episodes or rapid SVTs last night. HAs been breath normal. No wheezing or shortness of breath. She claims she is at her baseline of function. She is concerned about her legs and forearm swelling. no pain in the legs or arms. Also she has rash over the abdomen and left foot which she wants checked. No chest pain, SOB, No confusion or hypoxic episodes. No fever or chills. Has mild cough which is chronic with her COPD. Functional Status: Reports: tolerating diet, urinating, incentive spirometry - Review of Systems General: Denies: Fever, Weakness HEENT: Denies: sinus congestion Pulmonary: Reports: cough, sputum. Denies: shortness of breath, hemoptysis, wheezing Cardiovascular: Denies: Chest Pain, Lightheadedness Gastrointestinal: Denies: Abdominal pain, Nausea, Vomiting Genitourinary: Denies: dysuria, frequency Musculoskeletal: Denies: joint pain, joint swelling Skin: Reports: bruising (old ). Denies: pruritis, rash Neurological: Reports: No Symptoms Psychiatric: Denies: confusion, depression - Patient Data Vitals - most recent: Last Vital Signs Temp 100.5 F 10/09/16 02:30 Pulse 115 H 10/09/16 08:39 Resp 22 H 10/09/16 02:30 BP 124/65 10/09/16 08:39 Pulse Ox 98 10/09/16 02:30 Weight - most recent: 94.619 kg I&O - last 24 hours: Intake & Output 10/08/16 10/09/16 10/09/16 22:59 06:59 14:59 Intake Total 380 Output Total 2650 Balance -2270 Lab Results last 24 hrs: Laboratory Results - last 24 hr 10/08/16 10/08/16 10/08/16 Range/Units 07:15 11:51 16:26 VBG pH (7.31-7.41) VBG pCO2 (41-51) mm/Hg VBG pO2 (30-50) mm/Hg VBG HCO3 (23.0-28.0) mmol/L VBG O2 Saturation (60-85) % VBG Base Excess (-2-3) mm/L O2 Delivery Device Oxygen Flow Rate L POC Glucose 154 H 304 H 273 H (74-110) mg/dL 10/09/16 10/09/16 Range/Units 08:05 10:57 VBG pH 7.32 (7.31-7.41) VBG pCO2 68.9 H (41-51) mm/Hg VBG pO2 43 (30-50) mm/Hg VBG HCO3 35.7 H (23.0-28.0) mmol/L VBG O2 Saturation 72 (60-85) % VBG Base Excess 10 H (-2-3) mm/L O2 Delivery Device T-piece Oxygen Flow Rate 0 L POC Glucose 185 H (74-110) mg/dL Med Orders - Current: Current Medications Acetaminophen (Tylenol) 650 mg PO Q6H PRN PRN Reason: Fever Acetaminophen/Hydrocodone Bitart ([place] 325-10 Mg) 2 tab PO Q4H PRN PRN Reason: Pain Last Admin: 10/08/16 22:27 Dose: 2 tab Acetylcysteine (Mucomyst 20%) 200 mg INH BID [facility] Last Admin: 10/09/16 08:40 Dose: 200 mg Albuterol (Ventolin Hfa) 0 - 1 gm INH Q4H PRN PRN Reason: Dyspnea Albuterol (Proventil Neb Soln) 2.5 mg INH QID PRN PRN Reason: Shortness of Breath Last Admin: 10/08/16 20:34 Dose: 2.5 mg Albuterol/Ipratropium (Duoneb 3.0-0.5 Mg/3 Ml) 3 ml INH QID [facility] Last Admin: 10/09/16 08:38 Dose: 3 ml Budesonide (Pulmicort) 0.5 mg NEB BID [facility] Last Admin: 10/09/16 08:40 Dose: 0.5 mg Cholecalciferol (Vitamin D3) 1,000 units PO DAILY@1200 [facility] Last Admin: 10/08/16 12:54 Dose: 1,000 units Desvenlafaxine Succinate (Pristiq) 50 mg PO QPM [facility] Last Admin: 10/08/16 20:04 Dose: 50 mg Diltiazem HCl (Cardizem Cd) 240 mg PO DAILY [facility] Last Admin: 10/09/16 08:39 Dose: 240 mg Diphenhydramine HCl (Benadryl) 50 mg PO Q4H PRN PRN Reason: Agitation Enoxaparin Sodium (Lovenox) 40 mg SUBCUT DAILY [facility] Last Admin: 10/09/16 08:35 Dose: 40 mg Fentanyl (Duragesic) 50 mcg TRDERM Q72H [facility] Ferrous Sulfate (Ferrous Sulfate) 325 mg PO WITHBREAKFAST [facility] Last Admin: 10/09/16 08:35 Dose: 325 mg Fluticasone Propionate (Flonase) 0 - 2 gm NASBOTH DAILY [facility] Last Admin: 10/09/16 08:38 Dose: 1 spray Formoterol Fumarate (Perforomist) 20 mcg NEB BID [facility] Last Admin: 10/08/16 20:29 Dose: 20 mcg Furosemide (Lasix) 40 mg PO BID [facility] Last Admin: 10/09/16 08:37 Dose: 40 mg Gabapentin (Neurontin) 600 mg PO TID [facility] Last Admin: 10/09/16 08:35 Dose: 600 mg Glipizide (Glucotrol Xl) 2.5 mg PO DAILY [facility] Last Admin: 10/09/16 08:38 Dose: 2.5 mg Guaifenesin (Mucinex) 600 mg PO BID [facility] Last Admin: 10/09/16 08:37 Dose: 600 mg Insulin Aspart (Novolog) 0 unit SUBCUT TIDMEALS [facility] PRN Reason: Protocol Last Admin: 10/09/16 10:38 Dose: 5 units Insulin Detemir (Levemir) 30 unit SUBCUT BEDTIME [facility] Last Admin: 10/08/16 20:35 Dose: 30 units Ketoconazole (Nizoral 2% Crm) 0 gm TOP BID [facility] Lidocaine (Lidoderm 5%) 700 mg TOP DAILY [facility] Last Admin: 10/09/16 08:38 Dose: 700 mg Lorazepam (Ativan) 1 mg PO Q8H [facility] Last Admin: 10/09/16 08:40 Dose: 1 mg Melatonin (Melatonin) 3 mg PO BEDTIME [facility] Last Admin: 10/08/16 20:04 Dose: 3 mg Metolazone (Zaroxolyn) 5 mg PO DAILY [facility] Metoprolol Tartrate (Lopressor) 25 mg PO BID [facility] Last Admin: 10/09/16 08:36 Dose: 25 mg Montelukast Sodium (Singulair) 10 mg PO DAILY@1200 [facility] Last Admin: 10/08/16 12:54 Dose: 10 mg Multivitamins/Minerals/Vitamin C (Childrens Chewable Vitamin) 1 tab PO DAILY@ 1200 [facility] Last Admin: 10/08/16 12:54 Dose: 1 tab Nicotine (Habitrol) 21 mg TRDERM Q24H [facility] Last Admin: 10/08/16 17:21 Dose: Not Given Nystatin (Nystop) 1 gm TOP TID [facility] Last Admin: 10/09/16 08:37 Dose: 1 applic Omeprazole (Omeprazole) 20 mg PO ACBRK [facility] Last Admin: 10/09/16 06:30 Dose: 20 mg Oxycodone HCl (Oxycodone) 10 - 20 mg PO Q4H PRN PRN Reason: Pain Last Admin: 10/08/16 14:27 Dose: 10 mg Prednisone (Prednisone) 40 mg PO WITHBREAKFAST [facility] Last Admin: 10/09/16 08:39 Dose: 40 mg Roflumilast (Daliresp) 500 mcg PO DAILY [facility] Last Admin: 10/09/16 08:36 Dose: 500 mcg Senna/Docusate Sodium (Senna Plus) 1 tab PO BID [facility] Last Admin: 10/09/16 08:36 Dose: 1 tab Sodium Chloride (Saline Flush) 10 ml FLUSH ASDIRECTED PRN PRN Reason: Keep Vein Open Tramadol HCl (Ultram) 50 mg PO QID [facility] Last Admin: 10/09/16 08:33 Dose: 50 mg Triamcinolone Acetonide (Triamcinolone Acetonide 0.5% Oint) 0 gm TOP BID [facility] Stop: 10/15/16 20:01 Discontinued Medications Acetaminophen (Tylenol) Confirm Administered Dose 650 mg .ROUTE .STK-MED ONE Stop: 10/09/16 04:22 Last Admin: 10/09/16 04:20 Dose: 650 mg Diltiazem HCl (Diltiazem) 10 mg IVPUSH ONETIME ONE Stop: 10/07/16 09:24 Last Admin: 10/07/16 16:09 Dose: Not Given Diltiazem HCl (Diltiazem) 10 mg IVPUSH ONETIME ONE Stop: 10/07/16 10:01 Last Admin: 10/07/16 10:16 Dose: 10 mg Diltiazem HCl (Cardizem) 10 mg IVPUSH ONETIME ONE Stop: 10/07/16 15:14 Last Admin: 10/07/16 16:07 Dose: 10 mg Furosemide (Lasix) 40 mg PO DAILY [facility] Last Admin: 10/08/16 08:08 Dose: 40 mg Gabapentin (Neurontin) 600 mg PO TID [facility] Last Admin: 10/08/16 08:10 Dose: 600 mg Diltiazem HCl 100 mg/ Sodium (Chloride) 100 mls @ 5 mls/hr IV TITRATE [facility]THEW; 5 MG /HR PRN Reason: Protocol Last Admin: 10/08/16 02:18 Dose: 10 mg/hr, 10 mls/hr Ceftriaxone Sodium 1 gm/ (Sodium Chloride) 100 mls @ 400 mls/hr IV Q24H [facility] Lorazepam (Ativan) Confirm Administered Dose 1 mg .ROUTE .STK-MED ONE Stop: 10/08/16 01:13 Last Admin: 10/08/16 03:04 Dose: Not Given - Exam Quality Assessment: supplemental oxygen General: alert, oriented HEENT: Pupils equal, Pupils reactive, EOMI, Mucous membr. moist/pink Neck: supple Lungs: Decreased breath sounds, Rhonchi (very few expiratory rhonchi in the base heard) Cardiovascular: Irregular Rhythm Abdomen: bowel sounds present, soft, no tenderness, no distension, other (there is a large are of fungal intertrigous rash in the lwoer midline of the abdominal wall and groin) Extremities: edema (3++ pitting seen in upper and lower extremities. also there is 3rd spacing of sluid in the subdermal region of the hands and feet.) Skin: warm, intact, other (there is scally dry pinkish red rash over the lasteral aspect of the left foot and ankle with superficial scalling. no skin breakdown.No discharge) - Problem List & Annotations (1) Intertriginous candidiasis SNOMED Code(s): 08365146 Code(s): B37.2 - CANDIDIASIS OF SKIN AND NAIL Status: Acute Current Visit : Yes (2) Dermatitis SNOMED Code(s): 83933532 Code(s): L30.9 - DERMATITIS, UNSPECIFIED Status: Acute Current Visit: Yes (3) COPD (chronic obstructive pulmonary disease) SNOMED Code(s): 59465737 Code(s): J44.9 - CHRONIC OBSTRUCTIVE PULMONARY DISEASE, UNSPECIFIED Status : Acute Current Visit: No Qualifiers: COPD type: chronic bronchitis Chronic bronchitis type: unspecified Qualified Code(s): J42 - Unspecified chronic bronchitis (4) Femur fracture, right SNOMED Code(s): 55073574 Code(s): S72.91XA - UNSP FRACTURE OF RIGHT FEMUR, INIT FOR CLOS FX Status: Acute Priority: High Current Visit: No (5) Pneumonia due to infectious organism SNOMED Code(s): 246995662 Code(s): B99.9 - UNSPECIFIED INFECTIOUS DISEASE; J17 - PNEUMONIA IN DISEASES CLASSIFIED ELSEWHERE Status: Acute Priority: High Current Visit: No Onset Date: 02/01/16 Qualifiers: Laterality: right Lung location: lower lobe of lung Qualified Code(s): J18.1 - Lobar pneumonia, unspecified organism Annotation/Comment:: progressive cough and congestion, purulent green sputum, progressive SOB - Problem List Review Problem List Initiated/Reviewed/Updated: Yes - My Orders Last 24 Hours: My Active Orders 10/09/16 04:13 Acetaminophen [Tylenol] 650 mg PO Q6H PRN 10/09/16 08:00 Chest 1V Frontal [CR] Routine 10/09/16 10:57 CBC WITH AUTO DIFF [HEME] Stat 10/09/16 11:00 Ketoconazole [Nizoral 2% Crm] See Dose Instructions TOP BID Triamcinolone Acetonide [Triamcinolone Acetonide 0.5% Oint] See Dose Instructions TOP BID 10/09/16 11:01 Cardiac Monitoring Discontinue [RC] Click to Edit 10/09/16 11:15 Metolazone [Zaroxolyn] 5 mg PO DAILY - Assessment Assessment:: 1) Chronic endstage COPD 2) Atrial flutter in remission 3) right femur fracture 4) subdermal edema 5) Fungal intertrigo abdominal wall 6) friction dermatitis left foot - Plan Plan:: 1) COPD: patient does appear very stable as for as her COPD is concerned. No tachypnea or distressed seen. Can make complete sentence between breaths.She did have venous ABG done today, which is not very pertinent, but does show hypercarbia with elevated PCO2.This is end stage COPD living with hypercarbic drive. Her white count is high at 18K which is steroid induced.I do not see any respiratory deterioration in this patient. 2) Atrial flutter: pt is stable her heart rate is ranging between 90-110, irregular. Pt has had some recording of artifact which looks like Vtach. but is not seen at other concurrent lead at the same time. Tis is technical error lead and movement artifact. Pt does have some amount or coronary disease or Corpulmonale asso with her COPD. But there is no acute cardiac injury. Vital appear stable. I have discontinue her cardiac monitoring at this point. 3) she has some subdermal edema from recent IV fluids and third spacing of fluid. She is on lasix, have started her on zaroxyln 5mg daily to be given 1 hr before lasix to potentiate the diruretic effect of lasix. 3) right femur fracture: stable, will follow PT recommendation and continue rehab. 4) she has fungal intertrigo over lower abdomen. I have advised to stop nizoral powder and start Nizoral 2% cream BID. Airating the area will help heal faster. 6) friction dermatitis left foot: advised traimcinolone cream 0.5% BID for 1 wk.
[2016-10-09] MEDS: Acetaminophen/HYDROcodone 325-10 MG Tab PO PRN ×2 (12:39→19:56)
[2016-10-09] MEDS: Ketoconazole 2% Crm 30 GM Tube TOP SCH ×2 (12:40→19:58)
[2016-10-09] MEDS: Metolazone 5 MG Tab PO SCH (12:41)
[2016-10-09] MEDS: Montelukast 10 MG Tab PO SCH (12:41)
[2016-10-09] MEDS: Cholecalciferol (Vitamin D3) 1,000 Unit Tab PO SCH (12:41)
[2016-10-09] MEDS: Multivitamin, Childrens Tab.Chew PO SCH (13:11)
[2016-10-09] MEDS: Triamcinolone Acetonide 0.5% Oint 15 GM Tube TOP SCH (17:03)
[2016-10-09] MEDS ORDERED: fentaNYL 50 MCG/HR Transdermal Patch TRDERM SCH (17:15)
[2016-10-09] MEDS: Nicotine 21 MG/24 Hr Patch TRDERM SCH (18:00)
[2016-10-09] MEDS: Melatonin 3 MG Tab PO SCH (19:54)
[2016-10-09] MEDS: Desvenlafaxine 50 MG Tab.ER PO SCH (19:54)
[2016-10-09] MEDS: Albuterol 0.083% 2.5 MG/3 ML Neb Soln INH PRN (20:02)
[2016-10-09] MEDS: Insulin Detemir 100 Units/ML 3 ML Pen SUBCUT SCH (20:59)
[2016-10-10] MEDS: LORazepam 1 MG Tab PO SCH ×3 (00:58→16:15)
[2016-10-10] MEDS: Triamcinolone Acetonide 0.5% Oint 15 GM Tube TOP SCH ×3 (00:59→21:00)
[2016-10-10] MEDS: Nystatin Topical Powder 15 GM Bottle TOP SCH ×4 (00:59→22:43)
[2016-10-10] MEDS: Acetaminophen/HYDROcodone 325-10 MG Tab PO PRN ×2 (04:09→14:41)
[2016-10-10] MEDS: Albuterol/Ipratropium 3.0-0.5 MG/3 ML Neb Soln INH SCH ×5 (05:45→22:42)
[2016-10-10] MEDS: Omeprazole 20 MG Cap.CR PO SCH (06:33)
[2016-10-10] MEDS: Insulin Aspart 100 Units/ML 3 ML Pen SUBCUT SCH ×3 (09:16→20:48)
[2016-10-10] MEDS: oxyCODONE 5 MG Tab PO PRN (09:40)
[2016-10-10] MEDS: traMADol 50 MG Tab PO SCH ×4 (10:32→20:32)
[2016-10-10] MEDS: guaiFENesin 600 MG Tab.ER PO SCH ×2 (10:34→20:39)
[2016-10-10] MEDS: Gabapentin 600 MG Tab PO SCH ×3 (10:35→20:40)
[2016-10-10] MEDS: Ketoconazole 2% Crm 30 GM Tube TOP SCH ×2 (10:35→20:41)
[2016-10-10] MEDS: glipiZIDE 2.5 MG Tab.ER PO SCH (10:38)
[2016-10-10] MEDS: Budesonide 0.5 MG/2 ML Neb Susp NEB SCH ×2 (10:38→20:42)
[2016-10-10] MEDS: Diltiazem 240 MG Cap.CD PO SCH (10:39)
[2016-10-10] MEDS: predniSONE 20 MG Tab PO SCH (10:40)
[2016-10-10] MEDS: Fluticasone Propionate Nasal Spray 16 GM Bottle NASBOTH SCH (10:40)
[2016-10-10] MEDS: Metolazone 5 MG Tab PO SCH (10:40)
[2016-10-10] MEDS: Ferrous Sulfate 325 MG Tab PO SCH (10:40)
[2016-10-10] MEDS: Roflumilast 500 MCG Tab PO SCH (10:40)
[2016-10-10] MEDS: Lidocaine 5% 700 MG Patch TOP SCH (10:41)
[2016-10-10] MEDS: Metoprolol Tartrate 25 MG Tab PO SCH ×2 (10:41→20:36)
[2016-10-10] MEDS: Umeclidinium Bromide 62.5 MCG 30 Puff Inhaler IH SCH (10:41)
[2016-10-10] MEDS: Enoxaparin 40 MG/0.4 ML Syringe SUBCUT SCH (10:42)
--- NOTE | 2016-10-10 11:59 | PCM.PN ---
- General Info Date of Service: 10/10/16 Admission Dx/Problem (Free Text): Pt claims her breathing seems stable. Has not had any severe wheezing episodes over night. mild consistent cough. She has autumn complaining of severe pain in her right shoulder. She does have severe arthritis in the shoulder, claims her last steroid shot was more than [address] Ontiveros. Requesting steroid injection, as she uses her arms a lot to position herself in the bed. the rash over abdomen and left leg are still present. Pt has noted improvement in her swelling of the extremities. No fever or chills. Tolerating diet well. Functional Status: Reports: tolerating diet, urinating, incentive spirometry - Review of Systems General: Denies: Fever, Weakness HEENT: Denies: dysphasia, sinus congestion Pulmonary: Reports: cough, sputum. Denies: shortness of breath, wheezing Cardiovascular: Denies: Chest Pain, Lightheadedness Gastrointestinal: Denies: Abdominal pain, Nausea, Vomiting Genitourinary: Denies: dysuria, frequency Musculoskeletal: Reports: shoulder pain (right), joint pain. Denies: arm pain, hand pain, joint swelling Skin: Reports: bruising. Denies: pruritis, rash Neurological: Denies: Confusion, Dizziness - Patient Data Vitals - most recent: Last Vital Signs Temp 98 F 10/09/16 22:00 Pulse 95 10/10/16 10:41 Resp 20 10/10/16 02:00 BP 124/64 10/10/16 10:41 Pulse Ox 98 10/10/16 02:00 Weight - most recent: 94.619 kg I&O - last 24 hours: Intake & Output 10/09/16 10/10/16 10/10/16 22:59 06:59 14:59 Intake Total 3000 600 Output Total 3500 2125 Balance -500 -1525 Lab Results last 24 hrs: Laboratory Results - last 24 hr 10/09/16 10/09/16 10/10/16 Range/Units 11:48 16:09 06:52 POC Glucose 206 H 281 H 350 H (74-110) mg/dL Med Orders - Current: Current Medications Acetaminophen (Tylenol) 650 mg PO Q6H PRN PRN Reason: Fever Acetaminophen/Hydrocodone Bitart ([place] 325-10 Mg) 2 tab PO Q4H PRN PRN Reason: Pain Last Admin: 10/10/16 04:09 Dose: 2 tab Acetylcysteine (Mucomyst 20%) 200 mg INH BID [facility] Last Admin: 10/09/16 20:00 Dose: 200 mg Albuterol (Ventolin Hfa) 0 - 1 gm INH Q4H PRN PRN Reason: Dyspnea Albuterol (Proventil Neb Soln) 2.5 mg INH QID PRN PRN Reason: Shortness of Breath Last Admin: 10/09/16 20:02 Dose: 2.5 mg Albuterol/Ipratropium (Duoneb 3.0-0.5 Mg/3 Ml) 3 ml INH QID [facility] Last Admin: 10/10/16 10:40 Dose: 3 ml Budesonide (Pulmicort) 0.5 mg NEB BID [facility] Last Admin: 10/10/16 10:38 Dose: 0.5 mg Cholecalciferol (Vitamin D3) 1,000 units PO DAILY@1200 [facility] Last Admin: 10/09/16 12:41 Dose: 1,000 units Desvenlafaxine Succinate (Pristiq) 50 mg PO QPM [facility] Last Admin: 10/09/16 19:54 Dose: 50 mg Diltiazem HCl (Cardizem Cd) 240 mg PO DAILY [facility] Last Admin: 10/10/16 10:39 Dose: 240 mg Diphenhydramine HCl (Benadryl) 50 mg PO Q4H PRN PRN Reason: Agitation Enoxaparin Sodium (Lovenox) 40 mg SUBCUT DAILY [facility] Last Admin: 10/10/16 10:42 Dose: 40 mg Fentanyl (Duragesic) 50 mcg TRDERM Q72H [facility] Last Admin: 10/09/16 18:02 Dose: 50 mcg Ferrous Sulfate (Ferrous Sulfate) 325 mg PO WITHBREAKFAST [facility] Last Admin: 10/10/16 10:40 Dose: Not Given Fluticasone Propionate (Flonase) 0 - 2 gm NASBOTH DAILY [facility] Last Admin: 10/10/16 10:40 Dose: 1 spray Formoterol Fumarate (Perforomist) 20 mcg NEB BID [facility] Last Admin: 10/10/16 10:38 Dose: 20 mcg Furosemide (Lasix) 40 mg PO BID [facility] Last Admin: 10/09/16 19:53 Dose: 40 mg Gabapentin (Neurontin) 600 mg PO TID [facility] Last Admin: 10/10/16 10:35 Dose: 600 mg Glipizide (Glucotrol Xl) 2.5 mg PO DAILY [facility] Last Admin: 10/10/16 10:38 Dose: 2.5 mg Guaifenesin (Mucinex) 600 mg PO BID [facility] Last Admin: 10/10/16 10:34 Dose: 600 mg Insulin Aspart (Novolog) 0 unit SUBCUT TIDMEALS [facility] PRN Reason: Protocol Last Admin: 10/10/16 09:16 Dose: 14 units Insulin Detemir (Levemir) 30 unit SUBCUT BEDTIME [facility] Last Admin: 10/09/16 20:59 Dose: 30 units Ketoconazole (Nizoral 2% Crm) 0 gm TOP BID [facility] Last Admin: 10/10/16 10:35 Dose: 1 unit Lidocaine (Lidoderm 5%) 700 mg TOP DAILY [facility] Last Admin: 10/10/16 10:41 Dose: 700 mg Lorazepam (Ativan) 1 mg PO Q8H [facility] Last Admin: 10/10/16 00:58 Dose: 1 mg Melatonin (Melatonin) 3 mg PO BEDTIME [facility] Last Admin: 10/09/16 19:54 Dose: 3 mg Metolazone (Zaroxolyn) 5 mg PO DAILY@0700 [facility] Last Admin: 10/10/16 10:40 Dose: 5 mg Metoprolol Tartrate (Lopressor) 25 mg PO BID [facility] Last Admin: 10/10/16 10:41 Dose: 25 mg Montelukast Sodium (Singulair) 10 mg PO DAILY@1200 [facility] Last Admin: 10/09/16 12:41 Dose: 10 mg Multivitamins/Minerals/Vitamin C (Childrens Chewable Vitamin) 1 tab PO DAILY@ 1200 [facility] Last Admin: 10/09/16 13:11 Dose: 1 tab Nicotine (Habitrol) 21 mg TRDERM Q24H [facility] Last Admin: 10/09/16 18:00 Dose: Not Given Nystatin (Nystop) 1 gm TOP TID [facility] Last Admin: 10/10/16 10:36 Dose: Not Given Omeprazole (Omeprazole) 20 mg PO ACBRK [facility] Last Admin: 10/10/16 06:33 Dose: 20 mg Oxycodone HCl (Oxycodone) 10 - 20 mg PO Q4H PRN PRN Reason: Pain Last Admin: 10/10/16 09:40 Dose: 10 mg Prednisone (Prednisone) 40 mg PO WITHBREAKFAST [facility] Last Admin: 10/10/16 10:40 Dose: 40 mg Roflumilast (Daliresp) 500 mcg PO DAILY [facility] Last Admin: 10/10/16 10:40 Dose: 500 mcg Senna/Docusate Sodium (Senna Plus) 1 tab PO BID [facility] Last Admin: 10/10/16 10:38 Dose: Not Given Sodium Chloride (Saline Flush) 10 ml FLUSH ASDIRECTED PRN PRN Reason: Keep Vein Open Tramadol HCl (Ultram) 50 mg PO QID [facility] Last Admin: 10/10/16 10:32 Dose: Not Given Triamcinolone Acetonide (Triamcinolone Acetonide 0.5% Oint) 0 gm TOP BID [facility] Stop: 10/15/16 20:01 Last Admin: 10/10/16 00:59 Dose: Not Given Discontinued Medications Acetaminophen (Tylenol) Confirm Administered Dose 650 mg .ROUTE .STK-MED ONE Stop: 10/09/16 04:22 Last Admin: 10/09/16 04:20 Dose: 650 mg Diltiazem HCl (Diltiazem) 10 mg IVPUSH ONETIME ONE Stop: 10/07/16 09:24 Last Admin: 10/07/16 16:09 Dose: Not Given Diltiazem HCl (Diltiazem) 10 mg IVPUSH ONETIME ONE Stop: 10/07/16 10:01 Last Admin: 10/07/16 10:16 Dose: 10 mg Diltiazem HCl (Cardizem) 10 mg IVPUSH ONETIME ONE Stop: 10/07/16 15:14 Last Admin: 10/07/16 16:07 Dose: 10 mg Furosemide (Lasix) 40 mg PO DAILY [facility] Last Admin: 10/08/16 08:08 Dose: 40 mg Gabapentin (Neurontin) 600 mg PO TID [facility] Last Admin: 10/08/16 08:10 Dose: 600 mg Diltiazem HCl 100 mg/ Sodium (Chloride) 100 mls @ 5 mls/hr IV TITRATE MATTHEW; 5 MG /HR PRN Reason: Protocol Last Admin: 10/08/16 02:18 Dose: 10 mg/hr, 10 mls/hr Ceftriaxone Sodium 1 gm/ (Sodium Chloride) 100 mls @ 400 mls/hr IV Q24H [facility] Lorazepam (Ativan) Confirm Administered Dose 1 mg .ROUTE .STK-MED ONE Stop: 10/08/16 01:13 Last Admin: 10/08/16 03:04 Dose: Not Given - Exam Quality Assessment: supplemental oxygen General: alert, oriented HEENT: Pupils equal, Pupils reactive, EOMI, Mucous membr. moist/pink Neck: supple Lungs: Decreased breath sounds, Rhonchi (few expiratory rhonchi heard) Cardiovascular: Regular Rate, Regular Rhythm Abdomen: bowel sounds present, soft, no tenderness, no distension Extremities: edema (3+ improving all 4 extremities) Skin: warm, intact, rash (rash over the abdomen and left leg unchanged) - Problem List & Annotations (1) Intertriginous candidiasis SNOMED Code(s): 06918871 Code(s): B37.2 - CANDIDIASIS OF SKIN AND NAIL Status: Acute Current Visit : Yes (2) Dermatitis SNOMED Code(s): 36533758 Code(s): L30.9 - DERMATITIS, UNSPECIFIED Status: Acute Current Visit: Yes (3) COPD (chronic obstructive pulmonary disease) SNOMED Code(s): 96141109 Code(s): J44.9 - CHRONIC OBSTRUCTIVE PULMONARY DISEASE, UNSPECIFIED Status : Acute Current Visit: No Qualifiers: COPD type: chronic bronchitis Chronic bronchitis type: unspecified Qualified Code(s): J42 - Unspecified chronic bronchitis (4) Femur fracture, right SNOMED Code(s): 25318133 Code(s): S72.91XA - UNSP FRACTURE OF RIGHT FEMUR, INIT FOR CLOS FX Status: Acute Priority: High Current Visit: No (5) Pneumonia due to infectious organism SNOMED Code(s): 309484292 Code(s): B99.9 - UNSPECIFIED INFECTIOUS DISEASE; J17 - PNEUMONIA IN DISEASES CLASSIFIED ELSEWHERE Status: Acute Priority: High Current Visit: No Onset Date: 02/01/16 Qualifiers: Laterality: right Lung location: lower lobe of lung Qualified Code(s): J18.1 - Lobar pneumonia, unspecified organism Annotation/Comment:: progressive cough and congestion, purulent green sputum, progressive SOB - Problem List Review Problem List Initiated/Reviewed/Updated: Yes - My Orders Last 24 Hours: My Active Orders 10/09/16 11:00 Ketoconazole [Nizoral 2% Crm] See Dose Instructions TOP BID Triamcinolone Acetonide [Triamcinolone Acetonide 0.5% Oint] See Dose Instructions TOP BID 10/09/16 11:01 Cardiac Monitoring Discontinue [RC] Click To Edit 10/09/16 11:15 Metolazone [Zaroxolyn] 5 mg PO DAILY@0700 - Assessment Assessment:: 1) Chronic endstage COPD 2) Atrial flutter in remission 3) right femur fracture 4) subdermal edema 5) Fungal intertrigo abdominal wall 6) friction dermatitis left foot 7) rigth shoulder arthritis - Plan Plan:: 1) COPD: patient does appear very stable as for as her COPD is concerned. 2) Atrial flutter: Rate controlled with diltiazem. 3) Edema in the extremities improving.Continue zoaroxyln and lasix for now. 3) right femur fracture: stable, will follow PT recommendation and continue rehab. 4) she has fungal intertrigo over lower abdomen. Continue Nizoral 2% cream BID. Airating the area will help heal faster. 6) friction dermatitis left foot: Continue traimcinolone cream 0.5% BID 7) Right shoulder chronic arthritis: pt did receive Kenalog 40mg with 2cc of 2% lido and 1 cc of Marcaine injection under aseptic precaution into her right shoulder by subacromial technique. Pt advised to take it easy for few days.
[2016-10-10] MEDS: Ondansetron 4 MG Tab.DIS PO PRN ×2 (12:00→16:00)
[2016-10-10] MEDS: Furosemide 40 MG Tab PO SCH ×2 (14:32→20:35)
[2016-10-10] MEDS: Acetylcysteine 20% 200 MG/ML 30 ML Nebulizer Soln SDV INH SCH ×2 (14:33→22:09)
[2016-10-10] MEDS: Multivitamin, Childrens Tab.Chew PO SCH (14:47)
[2016-10-10] MEDS: Montelukast 10 MG Tab PO SCH (14:49)
[2016-10-10] MEDS: Cholecalciferol (Vitamin D3) 1,000 Unit Tab PO SCH (14:49)
[2016-10-10] MEDS: Nicotine 21 MG/24 Hr Patch TRDERM SCH (18:51)
[2016-10-10] MEDS: Melatonin 3 MG Tab PO SCH (20:38)
[2016-10-10] MEDS: Desvenlafaxine 50 MG Tab.ER PO SCH (20:42)
[2016-10-10] MEDS: Insulin Detemir 100 Units/ML 3 ML Pen SUBCUT SCH (21:56)
--- NOTE | 2016-10-10 22:00 | CR ---
DATE OF SERVICE: 10/09/2016 CLINICAL DATA: Fever, tachycardia increased secretions. PORTABLE AP CHEST Comparison is made to a prior exam dated 10/04/2016. The tracheostomy tube remains unchanged in position. The heart size is stable. The pulmonary vasculature does appear slightly more prominent than on the prior exam suggesting mild pulmonary venous congestion. There are atelectatic changes in both lower lungs. The lungs are otherwise clear. The exam is otherwise unchanged from the prior. [id number] [facility]
--- NOTE | 2016-10-10 22:03 | CR ---
DATE OF SERVICE: 10/10/2016 CLINICAL DATA: Abdominal pain. DECUBITUS ABDOMEN Portable exam was performed. There is marked underpenetration. I do not see any gross abnormalities, however abnormalities cannot be excluded. [id number] [facility]
[2016-10-11] MEDS: LORazepam 1 MG Tab PO SCH ×3 (00:02→16:34)
[2016-10-11] MEDS: predniSONE 20 MG Tab PO SCH (06:40)
[2016-10-11] MEDS: Omeprazole 20 MG Cap.CR PO SCH (06:40)
[2016-10-11] MEDS: Metolazone 5 MG Tab PO SCH (06:40)
[2016-10-11] MEDS: Ferrous Sulfate 325 MG Tab PO SCH (06:40)
[2016-10-11] MEDS: Albuterol 0.083% 2.5 MG/3 ML Neb Soln INH PRN (08:32)
[2016-10-11] MEDS: Roflumilast 500 MCG Tab PO SCH (08:51)
[2016-10-11] MEDS: Diltiazem 240 MG Cap.CD PO SCH (08:51)
[2016-10-11] MEDS: Gabapentin 600 MG Tab PO SCH ×3 (08:52→14:30)
[2016-10-11] MEDS: traMADol 50 MG Tab PO SCH ×3 (08:53→16:35)
[2016-10-11] MEDS: guaiFENesin 600 MG Tab.ER PO SCH (08:54)
[2016-10-11] MEDS: glipiZIDE 2.5 MG Tab.ER PO SCH (08:54)
[2016-10-11] MEDS: Metoprolol Tartrate 25 MG Tab PO SCH (08:54)
[2016-10-11] MEDS: Furosemide 40 MG Tab PO SCH (08:54)
[2016-10-11] MEDS: Lidocaine 5% 700 MG Patch TOP SCH (08:56)
[2016-10-11] MEDS: Albuterol/Ipratropium 3.0-0.5 MG/3 ML Neb Soln INH SCH ×3 (08:56→16:36)
[2016-10-11] MEDS: Enoxaparin 40 MG/0.4 ML Syringe SUBCUT SCH (08:56)
[2016-10-11] MEDS: Fluticasone Propionate Nasal Spray 16 GM Bottle NASBOTH SCH (08:57)
[2016-10-11] MEDS: Umeclidinium Bromide 62.5 MCG 30 Puff Inhaler IH SCH (08:57)
[2016-10-11] MEDS: Ketoconazole 2% Crm 30 GM Tube TOP SCH (09:00)
[2016-10-11] MEDS: Insulin Aspart 100 Units/ML 3 ML Pen SUBCUT SCH ×2 (09:01→12:18)
[2016-10-11] MEDS: Nystatin Topical Powder 15 GM Bottle TOP SCH ×2 (09:02→16:33)
[2016-10-11] MEDS: Acetylcysteine 20% 200 MG/ML 30 ML Nebulizer Soln SDV INH SCH (09:06)
[2016-10-11] MEDS: Budesonide 0.5 MG/2 ML Neb Susp NEB SCH (09:07)
[2016-10-11] MEDS: Triamcinolone Acetonide 0.5% Oint 15 GM Tube TOP SCH (09:07)
[2016-10-11 10:42] VITALS: BP 122/65
--- NOTE | 2016-10-11 11:25 | PCM.DCSUM1 ---
Discharge Summary - Discharge Data Discharge Date: 10/11/16 Discharge Disposition: DC/Tfer W/I [facility] Condition: Good - Discharge Diagnosis/Problem(s) (1) Dermatitis SNOMED Code(s): 95065263 ICD Code: L30.9 - DERMATITIS, UNSPECIFIED Status: Acute Priority: Medium (2) Intertriginous candidiasis SNOMED Code(s): 05034643 ICD Code: B37.2 - CANDIDIASIS OF SKIN AND NAIL Status: Acute Priority: Medium (3) Anxiety SNOMED Code(s): 39102262 ICD Code: F41.9 - ANXIETY DISORDER, UNSPECIFIED Status: Chronic Priority : Medium (4) COPD (chronic obstructive pulmonary disease) SNOMED Code(s): 03498766 ICD Code: J44.9 - CHRONIC OBSTRUCTIVE PULMONARY DISEASE, UNSPECIFIED Status : Acute Priority: High Qualifiers: COPD type: chronic bronchitis Chronic bronchitis type: unspecified Qualified Code(s): J42 - Unspecified chronic bronchitis (5) Femur fracture, right SNOMED Code(s): 76273028 ICD Code: S72.91XA - UNSP FRACTURE OF RIGHT FEMUR, INIT FOR CLOS FX Status : Chronic Priority: High Qualifiers: Encounter type: subsequent encounter (6) CHF, Congestive heart failure SNOMED Code(s): 90176812 ICD Code: I50.9 - HEART FAILURE, UNSPECIFIED Status: Chronic Priority: Medium Problem Details: 08/14/2013 Continue with Lasix po and weight will do Chem 8 today. (7) COLD, Chronic obstructive lung disease SNOMED Code(s): 63151196 ICD Code: J44.9 - CHRONIC OBSTRUCTIVE PULMONARY DISEASE, UNSPECIFIED Status : Chronic Priority: High Onset Date: Unknown Problem Details: 11/14/2014 patient was given a nebulizer on the ambulance and she doesnt seem in distress. Blood gases done via venous with ph 7.42 and pco2 67, po2 43.6 At this time will continue with normal meds as at home. (8) Tobacco abuse SNOMED Code(s): 066484139, 424295978 ICD Code: Z72.0 - TOBACCO USE Status: Chronic Priority: High Onset Date : 02/02/16 - Patient Summary/Data Consults: Consultations 10/07/16 11:58 Consult to Water Resource Engineering Specialist [CONS] Routine Comment: Physician Instructions: Consult to Wound Care Services [CONS] Routine Comment: Physician Instructions: OT Evaluation and Treatment [CONS] Routine Please Evaluate and Treat. OT Reason for Consult: ADL's This query below is only for informational purposes and is not editable. Admission Diagnosis/Problem: Weakness PT Evaluation and Treatment [CONS] Routine Please Evaluate and Treat. PT Reason for Consult: Post op Ortho Surgery This query below is only for informational purposes and is not editable. Admission Diagnosis/Problem: Weakness - Patient Instructions Diet: Heart Healthy Diet, Usual Diet as Tolerated Activity: As Tolerated Driving: Do Not Drive Showering/Bathing: May Shower Notify Provider of: Fever, Increased Pain, Swelling and Redness, Drainage, Nausea and/or Vomiting - Discharge Plan Home Medications: Home Meds Montelukast Sodium [Singulair] 10 mg PO DAILY@1200 10/02/14 [History] guaiFENesin [Mucinex] 600 mg PO BID 10/02/14 [History] Insulin Glarg,Human.Rec.Analog [Lantus Solostar] 20 units SUBCUT BEDTIME pen [Rx] Omeprazole 20 mg PO ACBRK 11/04/14 [History] predniSONE 40 mg PO DAILY 11/04/14 [History] Albuterol [Proventil Neb Soln] 2.5 mg INH QID neb 05/08/15 [Rx] Albuterol [Proair HFA] 1 puff INH Q4HR PRN 06/04/15 [History] Cholecalciferol (Vitamin D3) [Vitamin D3] 1,000 units PO DAILY@1200 06/04/15 [ History] Fluticasone Propionate [Flonase] 1 spray NASBOTH DAILY 06/04/15 [History] Formoterol [Perforomist] 20 mcg NEB QID 06/04/15 [History] Furosemide [Lasix] 40 mg PO DAILY 06/04/15 [History] Gabapentin [Neurontin] 600 mg PO TID 06/04/15 [History] Desvenlafaxine [Pristiq] 50 mg PO QPM 01/03/16 [History] Metoprolol Tartrate [Lopressor] 25 mg PO BID 01/03/16 [History] fentaNYL [Fentanyl] 50 mcg TD ASDIRECTED 01/03/16 [History] traMADol [Ultram] 50 mg PO QID 01/03/16 [History] LORazepam [Ativan] 1 mg PO TID 06/22/16 [History] Melatonin 5 mg PO BEDTIME 06/22/16 [History] Multivitamins [Childrens Chewable Vitamin] 1 tab PO DAILY@1200 06/22/16 [History ] Acetylcysteine [Mucomyst 10%] 1 inh INH BID 09/18/16 [History] Roflumilast [Daliresp] 500 mcg PO DAILY 09/18/16 [History] Acetaminophen [Tylenol Extra Strength] 1,000 mg PO TID 09/27/16 [History] Albuterol/Ipratropium [DuoNeb 3.0-0.5 MG/3 ML] 1 ampule IN QID PRN 09/27/16 [ History] Enoxaparin [Lovenox] 40 mg SUBCUT DAILY 09/27/16 [History] HYDROmorphone [Dilaudid] 2 - 4 mg PO Q4H PRN 09/27/16 [History] Lidocaine 5% [Lidoderm 5%] 1 patch TOP DAILY 09/27/16 [History] Nicotine [Nicotine Patch] 1 patch TD DAILY 09/27/16 [History] Nystatin 1 applic TP TID 09/27/16 [History] Sennosides/Docusate Sodium [Senna-Docusate Sodium] 1 tab PO BID 09/27/16 [ History] Umeclidinium [place] [Incruse Ellipta] 1 puff IH DAILY 09/27/16 [History] diphenhydrAMINE [Benadryl] 25 mg PO Q4H PRN 09/27/16 [History] glipiZIDE [Glipizide ER] 2.5 mg PO DAILY 09/27/16 [History] - Discharge Summary/Plan Comment DC Time >30 min.: Yes Discharge Summary/Plan Comment: Counseled on close monitoring and discussion of f/u or notification of staff if any further chest symptoms or heart palpitations. Patient will continue on current medications with no changes. Pain management to continue with hx of recent femur fracture. - Patient Data Vitals - Most Recent: Last Vital Signs Temp 36.6 C 10/11/16 10:00 Pulse 109 H 10/11/16 10:00 Resp 18 10/11/16 10:00 BP 122/65 10/11/16 10:00 Pulse Ox 95 10/11/16 10:00 Weight - Most Recent: 94.619 kg I&O - Last 24 hours: Intake & Output 10/10/16 10/11/16 10/11/16 22:59 06:59 14:59 Intake Total 400 1100 Output Total 1600 3150 Balance -1200 -2050 Lab Results - Last 24 hrs: Laboratory Results - last 24 hr 10/10/16 10/10/16 10/10/16 Range/Units 11:24 12:18 13:30 POC Glucose 43 L* 111 H 107 (74-110) mg/dL 10/10/16 10/10/16 10/10/16 Range/Units 16:02 19:17 23:01 POC Glucose 237 H 294 H 167 H (74-110) mg/dL 10/11/16 Range/Units 07:30 POC Glucose 224 H (74-110) mg/dL Med Orders - Current: Current Medications Acetaminophen (Tylenol) 650 mg PO Q6H PRN PRN Reason: Fever Acetaminophen/Hydrocodone Bitart (Aubrey 325-10 Mg) 2 tab PO Q4H PRN PRN Reason: Pain Last Admin: 10/10/16 14:41 Dose: 2 tab Acetylcysteine (Mucomyst 20%) 200 mg INH BID [facility] Last Admin: 10/11/16 09:06 Dose: 200 mg Albuterol (Ventolin Hfa) 0 - 1 gm INH Q4H PRN PRN Reason: Dyspnea Albuterol (Proventil Neb Soln) 2.5 mg INH QID PRN PRN Reason: Shortness of Breath Last Admin: 10/11/16 08:32 Dose: 2.5 mg Albuterol/Ipratropium (Duoneb 3.0-0.5 Mg/3 Ml) 3 ml INH QID [facility] Last Admin: 10/11/16 08:56 Dose: 3 ml Budesonide (Pulmicort) 0.5 mg NEB BID [facility] Last Admin: 10/11/16 09:07 Dose: 0.5 mg Cholecalciferol (Vitamin D3) 1,000 units PO DAILY@1200 [facility] Last Admin: 10/10/16 14:49 Dose: 1,000 units Desvenlafaxine Succinate (Pristiq) 50 mg PO QPM [facility] Last Admin: 10/10/16 20:42 Dose: 50 mg Diltiazem HCl (Cardizem Cd) 240 mg PO DAILY [facility] Last Admin: 10/11/16 08:51 Dose: 240 mg Diphenhydramine HCl (Benadryl) 50 mg PO Q4H PRN PRN Reason: Agitation Enoxaparin Sodium (Lovenox) 40 mg SUBCUT DAILY [facility] Last Admin: 10/11/16 08:56 Dose: 40 mg Fentanyl (Duragesic) 50 mcg TRDERM Q72H [facility] Last Admin: 10/09/16 18:02 Dose: 50 mcg Ferrous Sulfate (Ferrous Sulfate) 325 mg PO WITHBREAKFAST [facility] Last Admin: 10/11/16 06:40 Dose: 325 mg Fluticasone Propionate (Flonase) 0 - 2 gm NASBOTH DAILY [facility] Last Admin: 10/11/16 08:57 Dose: 1 spray Formoterol Fumarate (Perforomist) 20 mcg NEB BID [facility] Last Admin: 10/11/16 09:18 Dose: 20 mcg Furosemide (Lasix) 40 mg PO BID [facility] Last Admin: 10/11/16 08:54 Dose: 40 mg Gabapentin (Neurontin) 600 mg PO TID [facility] Last Admin: 10/11/16 08:52 Dose: 600 mg Glipizide (Glucotrol Xl) 2.5 mg PO DAILY [facility] Last Admin: 10/11/16 08:54 Dose: 2.5 mg Guaifenesin (Mucinex) 600 mg PO BID [facility] Last Admin: 10/11/16 08:54 Dose: 600 mg Insulin Aspart (Novolog) 0 unit SUBCUT TIDMEALS [facility] PRN Reason: Protocol Last Admin: 10/11/16 09:01 Dose: 8 units Insulin Detemir (Levemir) 30 unit SUBCUT BEDTIME [facility] Last Admin: 10/10/16 21:56 Dose: 30 units Ketoconazole (Nizoral 2% Crm) 0 gm TOP BID [facility] Last Admin: 10/11/16 09:00 Dose: 1 unit Lidocaine (Lidoderm 5%) 700 mg TOP DAILY [facility] Last Admin: 10/11/16 08:56 Dose: 700 mg Lorazepam (Ativan) 1 mg PO Q8H [facility] Last Admin: 10/11/16 08:51 Dose: 1 mg Melatonin (Melatonin) 3 mg PO BEDTIME [facility] Last Admin: 10/10/16 20:38 Dose: 3 mg Metolazone (Zaroxolyn) 5 mg PO DAILY@0700 [facility] Last Admin: 10/11/16 06:40 Dose: 5 mg Metoprolol Tartrate (Lopressor) 25 mg PO BID [facility] Last Admin: 10/11/16 08:54 Dose: 25 mg Montelukast Sodium (Singulair) 10 mg PO DAILY@1200 [facility] Last Admin: 10/10/16 14:49 Dose: 10 mg Multivitamins/Minerals/Vitamin C (Childrens Chewable Vitamin) 1 tab PO DAILY@ 1200 [facility] Last Admin: 10/10/16 14:47 Dose: 1 tab Nicotine (Habitrol) 21 mg TRDERM Q24H [facility] Last Admin: 10/10/16 18:51 Dose: Not Given Nystatin (Nystop) 1 gm TOP TID [facility] Last Admin: 10/11/16 09:02 Dose: Not Given Omeprazole (Omeprazole) 20 mg PO ACBRK [facility] Last Admin: 10/11/16 06:40 Dose: 20 mg Ondansetron HCl (Zofran Odt) 4 mg PO Q6H PRN PRN Reason: Nausea/Vomiting Last Admin: 10/10/16 16:00 Dose: 4 mg Oxycodone HCl (Oxycodone) 10 - 20 mg PO Q4H PRN PRN Reason: Pain Last Admin: 10/10/16 09:40 Dose: 10 mg Prednisone (Prednisone) 40 mg PO WITHBREAKFAST [facility] Last Admin: 10/11/16 06:40 Dose: 40 mg Roflumilast (Daliresp) 500 mcg PO DAILY [facility] Last Admin: 10/11/16 08:51 Dose: 500 mcg Senna/Docusate Sodium (Senna Plus) 1 tab PO BID [facility] Last Admin: 10/11/16 08:53 Dose: 1 tab Sodium Chloride (Saline Flush) 10 ml FLUSH ASDIRECTED PRN PRN Reason: Keep Vein Open Tramadol HCl (Ultram) 50 mg PO QID [facility] Last Admin: 10/11/16 08:53 Dose: 50 mg Triamcinolone Acetonide (Triamcinolone Acetonide 0.5% Oint) 0 gm TOP BID [facility] Stop: 10/15/16 20:01 Last Admin: 10/11/16 09:07 Dose: 1 applic Discontinued Medications Acetaminophen (Tylenol) Confirm Administered Dose 650 mg .ROUTE .STK-MED ONE Stop: 10/09/16 04:22 Last Admin: 10/09/16 04:20 Dose: 650 mg Diltiazem HCl (Diltiazem) 10 mg IVPUSH ONETIME ONE Stop: 10/07/16 09:24 Last Admin: 10/07/16 16:09 Dose: Not Given Diltiazem HCl (Diltiazem) 10 mg IVPUSH ONETIME ONE Stop: 10/07/16 10:01 Last Admin: 10/07/16 10:16 Dose: 10 mg Diltiazem HCl (Cardizem) 10 mg IVPUSH ONETIME ONE Stop: 10/07/16 15:14 Last Admin: 10/07/16 16:07 Dose: 10 mg Furosemide (Lasix) 40 mg PO DAILY [facility] Last Admin: 10/08/16 08:08 Dose: 40 mg Gabapentin (Neurontin) 600 mg PO TID [facility] Last Admin: 10/08/16 08:10 Dose: 600 mg Diltiazem HCl 100 mg/ Sodium (Chloride) 100 mls @ 5 mls/hr IV TITRATE [facility]; 5 MG /HR PRN Reason: Protocol Last Admin: 10/08/16 02:18 Dose: 10 mg/hr, 10 mls/hr Ceftriaxone Sodium 1 gm/ (Sodium Chloride) 100 mls @ 400 mls/hr IV Q24H [facility] Lorazepam (Ativan) Confirm Administered Dose 1 mg .ROUTE .STK-MED ONE Stop: 10/08/16 01:13 Last Admin: 10/08/16 03:04 Dose: Not Given *Q Meaningful Use (DIS) - VTE *Q VTE Criteria *Q: - Stroke *Q Stroke Criteria *Q: - AMI *Q AMI Criteria *Q:
[2016-10-11] MEDS: Acetaminophen/HYDROcodone 325-10 MG Tab PO PRN (12:11)
[2016-10-11] MEDS: Multivitamin, Childrens Tab.Chew PO SCH (12:12)
[2016-10-11] MEDS: Cholecalciferol (Vitamin D3) 1,000 Unit Tab PO SCH (12:12)
[2016-10-11] MEDS: Montelukast 10 MG Tab PO SCH (12:12)
[2016-10-11] MEDS ORDERED: traMADol 50 MG Tab ONE (16:16)
== END 2016-10-11 14:56 | disposition swing bed (61) | DRG 308 ==
LOC: LB.MS 08:30 → UNDOADMIN 08:41 → LB.MS 08:41
PROVIDERS: ADMIT Internal Medicine; ATTEND Internal Medicine
DX: I48.92 Unspecified atrial flutter (principal); J96.91 Respiratory failure, unspecified with hypoxia; J96.92 Respiratory failure, unspecified with hypercapnia; N17.9 Acute kidney failure, unspecified; D62 Acute posthemorrhagic anemia; J44.9 Chronic obstructive pulmonary disease, unspecified; S72.91XD Unspecified fracture of right femur, subsequent encounter for closed fracture with routine healing; I50.9 Heart failure, unspecified; Z72.0 Tobacco use; E11.9 Type 2 diabetes mellitus without complications; B37.2 Candidiasis of skin and nail; L30.9 Dermatitis, unspecified; F41.9 Anxiety disorder, unspecified; M19.011 Primary osteoarthritis, right shoulder; R19.7 Diarrhea, unspecified; Z79.4 Long term (current) use of insulin; Z79.52 Long term (current) use of systemic steroids; Z93.0 Tracheostomy status
CPT/HCPCS: 36415; 71010; 74000; 80048; 82803; 82962; 84484; 85025; 85027; 97110-GP; 97535-GO; A9270-GY; J1650; J3490; J7030; J7620

== ENCOUNTER 2016-10-11 08:49 | Inpatient (IN) | payer MEDICARE, MEDICAID ==
[2016-10-11] MEDS ORDERED: Tuberculin, PPD 5 Units/0.1 ML 1 ML MDV IDERM ONE (16:52)
[2016-10-11] MEDS ORDERED: Albuterol 8 GM Inhaler INH PRN (16:53)
[2016-10-11] MEDS ORDERED: Non-Formulary Medication 1 Each (Fentanyl [Fentanyl] 50 MCG) TD SCH (17:00)
[2016-10-11] MEDS: Insulin Aspart 100 Units/ML 3 ML Pen SUBCUT SCH (17:53)
[2016-10-11] MEDS: Acetaminophen/HYDROcodone 325-10 MG Tab PO PRN (18:30)
[2016-10-11] MEDS ORDERED: Non-Formulary Medication 1 Each (Melatonin [Melatonin] 5 MG) PO SCH (20:00)
[2016-10-11] MEDS ORDERED: Insulin Glargine,Human Rec. Analog 100 Units/ML 3 ML Pen SUBCUT SCH (20:00)
[2016-10-11] MEDS ORDERED: Insulin Detemir 100 Units/ML 3 ML Pen SUBCUT SCH (20:00)
[2016-10-11] MEDS: Albuterol 0.083% 2.5 MG/3 ML Neb Soln INH SCH (21:03)
[2016-10-11] MEDS: LORazepam 1 MG Tab PO SCH (21:05)
[2016-10-11] MEDS: Gabapentin 300 MG Cap PO SCH (21:05)
[2016-10-11] MEDS: traMADol 50 MG Tab PO SCH (21:06)
[2016-10-11] MEDS: Metoprolol Tartrate 25 MG Tab PO SCH (21:07)
[2016-10-11] MEDS: guaiFENesin 600 MG Tab.ER PO SCH (21:19)
[2016-10-11] MEDS: Acetaminophen 500 MG Tab PO SCH (21:22)
[2016-10-11] MEDS ORDERED: Desvenlafaxine 50 MG Tab.ER PO ONE (21:24)
[2016-10-11] MEDS: Acetylcysteine 20% 200 MG/ML 30 ML Nebulizer Soln SDV INH SCH ×2 (21:35→21:53)
[2016-10-11] MEDS: Nystatin Topical Powder 15 GM Bottle TOP SCH (21:47)
[2016-10-11] MEDS: Omeprazole 20 MG Cap.CR PO SCH (21:48)
[2016-10-12] MEDS: Omeprazole 20 MG Cap.CR PO SCH (06:56)
[2016-10-12] MEDS: LORazepam 1 MG Tab PO SCH ×3 (07:42→20:12)
[2016-10-12] MEDS: Fluticasone Propionate Nasal Spray 16 GM Bottle NASBOTH SCH (07:44)
[2016-10-12] MEDS: Roflumilast 500 MCG Tab PO SCH (07:44)
[2016-10-12] MEDS: glipiZIDE 2.5 MG Tab.ER PO SCH (07:45)
[2016-10-12] MEDS: Lidocaine 5% 700 MG Patch TOP SCH (07:45)
[2016-10-12] MEDS: Furosemide 40 MG Tab PO SCH (07:45)
[2016-10-12] MEDS: Metoprolol Tartrate 25 MG Tab PO SCH ×2 (07:46→20:16)
[2016-10-12] MEDS: Enoxaparin 40 MG/0.4 ML Syringe SUBCUT SCH (07:47)
[2016-10-12] MEDS: guaiFENesin 600 MG Tab.ER PO SCH ×2 (07:47→20:12)
[2016-10-12] MEDS: Gabapentin 300 MG Cap PO SCH ×3 (07:48→20:11)
[2016-10-12] MEDS: Acetylcysteine 20% 200 MG/ML 30 ML Nebulizer Soln SDV NEB SCH ×2 (07:48→20:54)
[2016-10-12] MEDS: predniSONE 20 MG Tab PO SCH (07:54)
[2016-10-12] MEDS: Acetaminophen 500 MG Tab PO SCH (07:55)
[2016-10-12] MEDS: traMADol 50 MG Tab PO SCH ×4 (07:55→20:09)
[2016-10-12] MEDS ORDERED: Nicotine 7 MG/24 Hr Patch TRDERM SCH (08:00)
[2016-10-12] MEDS: Insulin Aspart 100 Units/ML 3 ML Pen SUBCUT SCH ×3 (08:01→17:29)
[2016-10-12] MEDS: Nystatin Topical Powder 15 GM Bottle TOP SCH ×3 (08:27→20:40)
[2016-10-12] MEDS: Nicotine 21 MG/24 Hr Patch TRDERM SCH (08:35)
[2016-10-12] MEDS: Albuterol 0.083% 2.5 MG/3 ML Neb Soln INH SCH ×4 (08:35→20:34)
[2016-10-12] MEDS ORDERED: Acetaminophen 325 MG Tab PO PRN (09:00)
[2016-10-12] MEDS ORDERED: Albuterol 8 GM Inhaler INH PRN (09:01)
[2016-10-12] MEDS ORDERED: fentaNYL 50 MCG/HR Transdermal Patch TRDERM SCH (09:15)
[2016-10-12] MEDS ORDERED: Ondansetron 4 MG Tab.DIS PO PRN (09:42)
[2016-10-12] MEDS: Nicotine 14 MG/24 Hr Patch TRDERM SCH (10:28)
[2016-10-12] MEDS: Montelukast 10 MG Tab PO SCH (12:06)
[2016-10-12] MEDS: Cholecalciferol (Vitamin D3) 1,000 Unit Tab PO SCH (12:06)
[2016-10-12] MEDS: Multivitamin, Childrens Tab.Chew PO SCH (12:06)
[2016-10-12] MEDS ORDERED: Diltiazem 240 MG Cap.CD ONE (12:55)
[2016-10-12] MEDS: Diltiazem 240 MG Cap.CD PO SCH (13:17)
[2016-10-12] MEDS: fentaNYL 50 MCG/HR Transdermal Patch TRDERM SCH (17:29)
[2016-10-12] MEDS: Desvenlafaxine 50 MG Tab.ER PO SCH (20:09)
[2016-10-12] MEDS: Melatonin 3 MG Tab PO SCH (20:12)
[2016-10-12] MEDS: Budesonide 0.5 MG/2 ML Neb Susp INH SCH (20:42)
[2016-10-12] MEDS: Ketoconazole 2% Crm 30 GM Tube TOP SCH (20:43)
[2016-10-12] MEDS: Insulin Detemir 100 Units/ML 3 ML Pen SUBCUT SCH (21:00)
[2016-10-12] MEDS: diphenhydrAMINE 25 MG Cap PO PRN (21:12)
[2016-10-13] MEDS: Triamcinolone Acetonide 0.5% Oint 15 GM Tube TOP SCH ×3 (05:17→20:40)
[2016-10-13] MEDS: Acetaminophen/HYDROcodone 325-10 MG Tab PO PRN (06:01)
[2016-10-13] MEDS: Metolazone 5 MG Tab PO SCH (06:02)
[2016-10-13] MEDS: Ferrous Sulfate 325 MG Tab PO SCH (06:03)
[2016-10-13] MEDS: Omeprazole 20 MG Cap.CR PO SCH (06:03)
[2016-10-13] MEDS: LORazepam 1 MG Tab PO SCH ×3 (07:40→20:39)
[2016-10-13] MEDS: Diltiazem 240 MG Cap.CD PO SCH (07:41)
[2016-10-13] MEDS: Furosemide 40 MG Tab PO SCH (07:42)
[2016-10-13] MEDS: Roflumilast 500 MCG Tab PO SCH (07:42)
[2016-10-13] MEDS: Metoprolol Tartrate 25 MG Tab PO SCH ×2 (07:43→20:50)
[2016-10-13] MEDS: guaiFENesin 600 MG Tab.ER PO SCH ×2 (07:43→20:37)
[2016-10-13] MEDS: Gabapentin 300 MG Cap PO SCH ×3 (07:44→20:38)
[2016-10-13] MEDS: predniSONE 20 MG Tab PO SCH (07:44)
[2016-10-13] MEDS: traMADol 50 MG Tab PO SCH ×4 (07:45→20:39)
[2016-10-13] MEDS: Acetylcysteine 20% 200 MG/ML 30 ML Nebulizer Soln SDV NEB SCH ×2 (07:49→20:37)
[2016-10-13] MEDS: Insulin Aspart 100 Units/ML 3 ML Pen SUBCUT SCH ×3 (07:57→17:45)
[2016-10-13] MEDS: Albuterol 0.083% 2.5 MG/3 ML Neb Soln INH SCH ×4 (08:00→20:37)
[2016-10-13] MEDS: Fluticasone Propionate Nasal Spray 16 GM Bottle NASBOTH SCH (08:00)
[2016-10-13] MEDS: Enoxaparin 40 MG/0.4 ML Syringe SUBCUT SCH (08:02)
[2016-10-13] MEDS: Budesonide 0.5 MG/2 ML Neb Susp INH SCH ×2 (08:02→20:37)
[2016-10-13] MEDS: glipiZIDE 2.5 MG Tab.ER PO SCH ×2 (08:10→11:50)
[2016-10-13] MEDS: Nystatin Topical Powder 15 GM Bottle TOP SCH ×3 (08:12→20:40)
[2016-10-13] MEDS: Ketoconazole 2% Crm 30 GM Tube TOP SCH ×2 (08:13→20:40)
[2016-10-13] MEDS: Lidocaine 5% 700 MG Patch TOP SCH (08:14)
[2016-10-13] MEDS: Nicotine 14 MG/24 Hr Patch TRDERM SCH (09:16)
[2016-10-13] MEDS: Montelukast 10 MG Tab PO SCH (11:51)
[2016-10-13] MEDS: Multivitamin, Childrens Tab.Chew PO SCH (11:51)
[2016-10-13] MEDS: Cholecalciferol (Vitamin D3) 1,000 Unit Tab PO SCH (11:51)
[2016-10-13] MEDS: Albuterol/Ipratropium 3.0-0.5 MG/3 ML Neb Soln INH PRN (20:36)
[2016-10-13] MEDS: Melatonin 3 MG Tab PO SCH (20:38)
[2016-10-13] MEDS: Desvenlafaxine 50 MG Tab.ER PO SCH (20:39)
[2016-10-13] MEDS: Insulin Detemir 100 Units/ML 3 ML Pen SUBCUT SCH (20:50)
[2016-10-14] MEDS: Acetaminophen/HYDROcodone 325-10 MG Tab PO PRN ×3 (01:04→21:15)
[2016-10-14] MEDS: Metolazone 5 MG Tab PO SCH ×2 (05:42→08:29)
[2016-10-14] MEDS: Ferrous Sulfate 325 MG Tab PO SCH ×2 (05:42→08:24)
[2016-10-14] MEDS: Omeprazole 20 MG Cap.CR PO SCH ×2 (05:45→08:24)
[2016-10-14] MEDS: Gabapentin 300 MG Cap PO SCH ×3 (08:17→21:13)
[2016-10-14] MEDS: Diltiazem 240 MG Cap.CD PO SCH (08:18)
[2016-10-14] MEDS: Furosemide 40 MG Tab PO SCH (08:19)
[2016-10-14] MEDS: LORazepam 1 MG Tab PO SCH ×3 (08:20→21:16)
[2016-10-14] MEDS: glipiZIDE 2.5 MG Tab.ER PO SCH (08:20)
[2016-10-14] MEDS: Roflumilast 500 MCG Tab PO SCH (08:20)
[2016-10-14] MEDS: predniSONE 20 MG Tab PO SCH (08:21)
[2016-10-14] MEDS: guaiFENesin 600 MG Tab.ER PO SCH ×2 (08:22→21:24)
[2016-10-14] MEDS: Metoprolol Tartrate 25 MG Tab PO SCH ×2 (08:22→21:17)
[2016-10-14] MEDS: traMADol 50 MG Tab PO SCH ×4 (08:23→21:16)
[2016-10-14] MEDS: Fluticasone Propionate Nasal Spray 16 GM Bottle NASBOTH SCH (08:29)
[2016-10-14] MEDS: Enoxaparin 40 MG/0.4 ML Syringe SUBCUT SCH (08:30)
[2016-10-14] MEDS: Acetylcysteine 20% 200 MG/ML 30 ML Nebulizer Soln SDV NEB SCH ×2 (08:32→21:25)
[2016-10-14] MEDS: Ketoconazole 2% Crm 30 GM Tube TOP SCH ×2 (08:33→21:27)
[2016-10-14] MEDS: Insulin Aspart 100 Units/ML 3 ML Pen SUBCUT SCH ×3 (08:33→17:23)
[2016-10-14] MEDS: Lidocaine 5% 700 MG Patch TOP SCH (08:34)
[2016-10-14] MEDS: Nystatin Topical Powder 15 GM Bottle TOP SCH ×3 (08:34→21:27)
[2016-10-14] MEDS: Budesonide 0.5 MG/2 ML Neb Susp INH SCH ×2 (08:35→21:39)
[2016-10-14] MEDS: Albuterol 0.083% 2.5 MG/3 ML Neb Soln INH SCH ×4 (08:35→21:26)
--- NOTE | 2016-10-14 08:38 | PCM.HP ---
H&P History of Present Illness - General Date of Service: 10/11/16 Admit Problem/Dx: Admission Diagnosis/Problem Admission Diagnosis/Problem "Closed fracture of femur, distal end " Surgical repair done at [facility] 09/19/16. Source of Information: Patient, Old records History Limitations: Reports: No limitations - History of Present Illness Initial Comments - Free Text/Narative: This is a 61yo F admitted to swing bed for rehabilitation and pain management post op right femur fracture repair on 09/19/16. Patient has been stable and pain is under control. She has chronic severe COPD, morbid obesity, acute anemia , chronic leukocytosis, DM, CAD, CHF, history of tracheostomy, and HTN. Location: Reports: generalized (weakness) Severity: moderate Associated Symptoms: Reports: shortness of breath, weakness Right Shoulder Pain Score (Numeric/FACES): 8 - Related Data Allergies/Adverse Reactions: Allergies Allergy/AdvReac Type Severity Reaction Status Date / Time Penicillins Allergy Unknown Edema Verified 10/11/16 14:42 shellfish derived Allergy Unknown Anaphylactic Verified 10/11/16 14:42 Shock Sulfa (Sulfonamide Allergy Unknown Edema Verified 10/11/16 14:42 Antibiotics) clonidine AdvReac Intermediate Lethargy Verified 10/11/16 14:42 klonopin AdvReac Intermediate Lethargy Uncoded 10/11/16 14:42 Home Medications: Home Meds Montelukast Sodium [Singulair] 10 mg PO DAILY@1200 10/02/14 [History] guaiFENesin [Mucinex] 600 mg PO BID 10/02/14 [History] Insulin Glarg,Human.Rec.Analog [Lantus Solostar] 20 units SUBCUT BEDTIME pen [Rx] Omeprazole 20 mg PO ACBRK 11/04/14 [History] predniSONE 40 mg PO DAILY 11/04/14 [History] Albuterol [Proventil Neb Soln] 2.5 mg INH QID neb 05/08/15 [Rx] Albuterol [Proair HFA] 1 puff INH Q4HR PRN 06/04/15 [History] Cholecalciferol (Vitamin D3) [Vitamin D3] 1,000 units PO DAILY@1200 06/04/15 [ History] Fluticasone Propionate [Flonase] 1 spray NASBOTH DAILY 06/04/15 [History] Formoterol [Perforomist] 20 mcg NEB QID 06/04/15 [History] Furosemide [Lasix] 40 mg PO DAILY 06/04/15 [History] Gabapentin [Neurontin] 600 mg PO TID 06/04/15 [History] Desvenlafaxine [Pristiq] 50 mg PO QPM 01/03/16 [History] Metoprolol Tartrate [Lopressor] 25 mg PO BID 01/03/16 [History] fentaNYL [Fentanyl] 50 mcg TD ASDIRECTED 01/03/16 [History] traMADol [Ultram] 50 mg PO QID 01/03/16 [History] LORazepam [Ativan] 1 mg PO TID 06/22/16 [History] Melatonin 5 mg PO BEDTIME 06/22/16 [History] Multivitamins [Childrens Chewable Vitamin] 1 tab PO DAILY@1200 06/22/16 [History ] Acetylcysteine [Mucomyst 10%] 1 inh INH BID 09/18/16 [History] Roflumilast [Daliresp] 500 mcg PO DAILY 09/18/16 [History] Acetaminophen [Tylenol Extra Strength] 1,000 mg PO TID 09/27/16 [History] Albuterol/Ipratropium [DuoNeb 3.0-0.5 MG/3 ML] 1 ampule IN QID PRN 09/27/16 [ History] Enoxaparin [Lovenox] 40 mg SUBCUT DAILY 09/27/16 [History] HYDROmorphone [Dilaudid] 2 - 4 mg PO Q4H PRN 09/27/16 [History] Lidocaine 5% [Lidoderm 5%] 1 patch TOP DAILY 09/27/16 [History] Nicotine [Nicotine Patch] 1 patch TD DAILY 09/27/16 [History] Nystatin 1 applic TP TID 09/27/16 [History] Sennosides/Docusate Sodium [Senna-Docusate Sodium] 1 tab PO BID 09/27/16 [ History] Umeclidinium [place] [Incruse Ellipta] 1 puff IH DAILY 09/27/16 [History] diphenhydrAMINE [Benadryl] 25 mg PO Q4H PRN 09/27/16 [History] glipiZIDE [Glipizide ER] 2.5 mg PO DAILY 09/27/16 [History] Past Medical History HEENT History: Reports: Allergic rhinitis, Hard of hearing, Impaired vision, Other (see below) Other HEENT History: trach placed x 2 years ago Cardiovascular History: Reports: Heart Failure, Hypertension, Other (see below) Other Cardiovascular History: a flutter Respiratory History: Reports: SOB Other Respiratory History: SOB excessive plegm Gastrointestinal History: Reports: Chronic constipation, GERD Genitourinary History: Reports: Chronic renal insuffiency, UTI, recurrent Other Genitourinary History: no uti 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: Musculoskeletal History: Reports: Arthritis, Back pain, chronic, Neck pain, chronic Neurological History: Reports: Migraines Psychiatric History: Reports: Anxiety, Depression Endocrine/Metabolic History: Reports: Diabetes, type II Hematologic History: Reports: Anemia Dermatologic History: Reports: Other (see below) Other Dermatologic History: bruises easily - Infectious Disease History Infectious Disease History: Reports: VRE - Past Surgical History Other HEENT Surgeries/Procedures: Tracheostomy GI Surgical History: Reports: Hernia, abdominal Social & Family History - Family History Family Medical History: Noncontributory Cardiac: Reports: Hypertension Respiratory: Reports: Asthma, COPD Psychiatric: Reports: Anxiety - Tobacco Use Smoking Status *Q: Current Every Day Smoker Years of Tobacco use: 45 Packs/Tins Daily: 1 Used Tobacco, but Quit: No Month Tobacco Last Used: Aug Second Hand Smoke Exposure: Yes - Caffeine Use Caffeine Use: Reports: Coffee, Soda, Tea - Alcohol Use Days Per Week of Alcohol Use: 0 - Recreational Drug Use Recreational Drug Use: No Drug Use in Last 12 Months: No - Living Situation & Occupation Living situation: Reports: single, with significant other Occupation: disabled H&P Review of Systems - Review of Systems: Review Of Systems: ROS reveals no pertinent complaints other than HPI. Exam - Exam Exam: See Below - Vital Signs Vital Signs: Last Vital Signs Temp 36.9 C 10/13/16 20:00 Pulse 88 10/14/16 08:22 Resp 18 10/13/16 20:00 BP 133/70 10/14/16 08:22 Pulse Ox 98 10/13/16 20:00 Weight: 96.332 kg - Exam Quality Assessment: supplemental oxygen General: alert, oriented, cooperative HEENT: PERRLA, Conjunctiva clear, EOMI Neck: supple, trachea midline Lungs: Decreased breath sounds, Rhonchi Cardiovascular: regular rate, regular rhythm Abdomen: normal bowel sounds, soft Back Exam: normal inspection, full range of motion Extremities: edema (2+) Peripheral Pulses: 1+: dorsalis pedis (L), dorsalis pedis (R) Skin: warm, dry, intact, other (intrigenous candidiasis) Neurological: cranial nerves intact, reflexes equal bilateral Neuro Extensive - Mental Status: alert, oriented x3, normal mood/affect - Patient Data Lab Results last 24 hrs: Laboratory Results - last 24 hr 10/13/16 10/13/16 10/13/16 Range/Units 06:55 10:30 16:10 POC Glucose 76 269 H 282 H (74-110) mg/dL 10/14/16 Range/Units 06:58 POC Glucose 124 H (74-110) mg/dL Result Diagrams: 10/22/16 07:15 10/22/16 07:15 *Q Meaningful Use (ADM) - VTE *Q VTE Criteria *Q: - Stroke *Q Stroke Criteria *Q: - AMI *Q AMI Criteria *Q: - Problem List (1) Diabetes SNOMED Code(s): 26526908 ICD Code: E11.9 - TYPE 2 DIABETES MELLITUS WITHOUT COMPLICATIONS Status: Chronic Priority: Medium Current Visit: Yes Qualifiers: Diabetes mellitus type: type 2 (2) HTN (hypertension) SNOMED Code(s): 80339636 ICD Code: I10 - ESSENTIAL (PRIMARY) HYPERTENSION Status: Chronic Priority : Low Current Visit: Yes (3) Generalized weakness SNOMED Code(s): 60838408 ICD Code: R53.1 - WEAKNESS Status: Acute Priority: High Current Visit: Yes (4) Depression SNOMED Code(s): 42253110 ICD Code: F32.9 - MAJOR DEPRESSIVE DISORDER, SINGLE EPISODE, UNSPECIFIED Status: Chronic Priority: Low Current Visit: Yes (5) CHF, Congestive heart failure SNOMED Code(s): 59862812 ICD Code: I50.9 - HEART FAILURE, UNSPECIFIED Status: Chronic Priority: Medium Current Visit: Yes Problem Details: 08/14/2013 Continue with Lasix po and weight will do Chem 8 today. (6) COLD, Chronic obstructive lung disease SNOMED Code(s): 80057751 ICD Code: J44.9 - CHRONIC OBSTRUCTIVE PULMONARY DISEASE, UNSPECIFIED Status : Chronic Priority: High Current Visit: Yes Onset Date: Unknown Problem Details: 11/14/2014 patient was given a nebulizer on the ambulance and she doesnt seem in distress. Blood gases done via venous with ph 7.42 and pco2 67, po2 43.6 At this time will continue with normal meds as at home. (7) Chronic hypercapnic respiratory failure SNOMED Code(s): 643283208 ICD Code: J96.12 - CHRONIC RESPIRATORY FAILURE WITH HYPERCAPNIA Status: Chronic Priority: Medium Current Visit: No (8) Anxiety SNOMED Code(s): 84141046 ICD Code: F41.9 - ANXIETY DISORDER, UNSPECIFIED Status: Chronic Priority : Medium Current Visit: Yes (9) Femur fracture, right SNOMED Code(s): 42384345 ICD Code: S72.91XA - UNSP FRACTURE OF RIGHT FEMUR, INIT FOR CLOS FX Status : Resolved Priority: High Current Visit: Yes Problem Details: Repaired and in swing bed for pain management and PT/OT post op. Qualifiers: Encounter type: subsequent encounter (10) Intertriginous candidiasis SNOMED Code(s): 15735656 ICD Code: B37.2 - CANDIDIASIS OF SKIN AND NAIL Status: Chronic Priority: Medium Current Visit: Yes (11) Dermatitis SNOMED Code(s): 52580468 ICD Code: L30.9 - DERMATITIS, UNSPECIFIED Status: Chronic Priority: Medium Current Visit: Yes (12) Anemia SNOMED Code(s): 801313840 ICD Code: D64.9 - ANEMIA, UNSPECIFIED Status: Acute Priority: High Current Visit: Yes Qualifiers: Anemia type: other cause Problem List Initiated/Reviewed/Updated: Yes Orders Last 24hrs: Active Orders 24 hr Category Date Time Status Diltiazem [Cardizem CD] Med 10/13/16 08:00 Active 240 mg PO DAILY Medication Orders Acetaminophen (Tylenol) 650 mg PO Q6H PRN PRN Reason: MILD PAIN Last Admin: 10/12/16 21:11 Dose: 650 mg Acetaminophen/Hydrocodone Bitart ([place] 325-10 Mg) 2 tab PO Q4H PRN PRN Reason: pain Last Admin: 10/14/16 01:04 Dose: 2 tab Admin: 10/13/16 06:01 Dose: 2 tab Admin: 10/11/16 18:30 Dose: 2 tab Acetylcysteine (Mucomyst 20%) 200 mg NEB BID [facility] Last Admin: 10/14/16 08:32 Dose: 200 mg Admin: 10/13/16 20:37 Dose: 200 mg Admin: 10/13/16 07:49 Dose: 200 mg Admin: 10/12/16 20:54 Dose: 200 mg Admin: 10/12/16 07:48 Dose: 200 mg Albuterol (Proventil Neb Soln) 2.5 mg INH QID [facility] Last Admin: 10/14/16 08:35 Dose: 2.5 mg Admin: 10/13/16 20:37 Dose: 2.5 mg Admin: 10/13/16 16:30 Dose: 2.5 mg Admin: 10/13/16 11:56 Dose: 2.5 mg Admin: 10/13/16 08:00 Dose: 2.5 mg Admin: 10/12/16 20:34 Dose: 2.5 mg Admin: 10/12/16 16:18 Dose: 2.5 mg Admin: 10/12/16 12:39 Dose: 2.5 mg Admin: 10/12/16 08:35 Dose: 2.5 mg Admin: 10/11/16 21:03 Dose: 2.5 mg Albuterol (Ventolin Hfa) 0 gm INH Q4H PRN PRN Reason: Dyspnea Albuterol/Ipratropium (Duoneb 3.0-0.5 Mg/3 Ml) 3 ml INH QID PRN PRN Reason: Shortness of Breath Last Admin: 10/13/16 20:36 Dose: 3 ml Budesonide (Pulmicort) 0.5 mg INH BID [facility] Last Admin: 10/14/16 08:35 Dose: 0.5 mg Admin: 10/13/16 20:37 Dose: 0.5 mg Admin: 10/13/16 08:02 Dose: 0.5 mg Admin: 10/12/16 20:42 Dose: 0.5 mg Cholecalciferol (Vitamin D3) 1,000 units PO DAILY@1200 [facility] Last Admin: 10/13/16 11:51 Dose: 1,000 units Admin: 10/12/16 12:06 Dose: 1,000 units Desvenlafaxine Succinate (Pristiq) 50 mg PO QPM [facility] Last Admin: 10/13/16 20:39 Dose: 50 mg Admin: 10/12/16 20:09 Dose: 50 mg Diltiazem HCl (Cardizem Cd) 240 mg PO DAILY [facility] Last Admin: 10/14/16 08:18 Dose: 240 mg Admin: 10/13/16 07:41 Dose: 240 mg Admin: 10/12/16 13:17 Dose: 240 mg Diphenhydramine HCl (Benadryl) 25 mg PO Q4H PRN PRN Reason: Allergies Last Admin: 10/12/16 21:12 Dose: 25 mg Enoxaparin Sodium (Lovenox) 40 mg SUBCUT DAILY [facility] Last Admin: 10/14/16 08:30 Dose: 40 mg Admin: 10/13/16 08:02 Dose: 40 mg Admin: 10/12/16 07:47 Dose: 40 mg Fentanyl (Duragesic) 50 mcg TRDERM Q72H [facility] Last Admin: 10/12/16 17:29 Dose: 50 mcg Ferrous Sulfate (Ferrous Sulfate) 325 mg PO ACBREAKFAST [facility] Last Admin: 10/14/16 08:24 Dose: Admin: 10/14/16 05:42 Dose: 325 mg Admin: 10/13/16 06:03 Dose: 325 mg Fluticasone Propionate (Flonase) 0 gm NASBOTH DAILY [facility] Last Admin: 10/14/16 08:29 Dose: 1 spray Admin: 10/13/16 08:00 Dose: 1 spray Admin: 10/12/16 07:44 Dose: 1 spray Formoterol Fumarate (Perforomist) 20 mcg NEB BID [facility] Last Admin: 10/14/16 08:35 Dose: 20 mcg Admin: 10/13/16 20:36 Dose: 20 mcg Admin: 10/13/16 07:38 Dose: 20 mcg Admin: 10/12/16 20:39 Dose: 20 mcg Furosemide (Lasix) 40 mg PO DAILY [facility] Last Admin: 10/14/16 08:19 Dose: 40 mg Admin: 10/13/16 07:42 Dose: 40 mg Admin: 10/12/16 07:45 Dose: 40 mg Gabapentin (Neurontin) 600 mg PO TID [facility] Last Admin: 10/14/16 08:17 Dose: 600 mg Admin: 10/13/16 20:38 Dose: 600 mg Admin: 10/13/16 14:01 Dose: 600 mg Admin: 10/13/16 07:44 Dose: 600 mg Admin: 10/12/16 20:11 Dose: 600 mg Admin: 10/12/16 13:16 Dose: 600 mg Admin: 10/12/16 07:48 Dose: 600 mg Admin: 10/11/16 21:05 Dose: 600 mg Glipizide (Glucotrol Xl) 2.5 mg PO DAILY [facility] Last Admin: 10/14/16 08:20 Dose: 2.5 mg Admin: 10/13/16 11:50 Dose: 2.5 mg Admin: 10/13/16 08:10 Dose: Admin: 10/12/16 07:45 Dose: 2.5 mg Guaifenesin (Mucinex) 600 mg PO BID [facility] Last Admin: 10/14/16 08:22 Dose: 600 mg Admin: 10/13/16 20:37 Dose: 600 mg Admin: 10/13/16 07:43 Dose: 600 mg Admin: 10/12/16 20:12 Dose: 600 mg Admin: 10/12/16 07:47 Dose: 600 mg Admin: 10/11/16 21:19 Dose: 600 mg Insulin Aspart (Novolog) 0 unit SUBCUT TIDMEALS [facility] PRN Reason: Protocol Last Admin: 10/14/16 08:33 Dose: Not Given Admin: 10/13/16 17:45 Dose: 11 units Admin: 10/13/16 12:02 Dose: 11 units Admin: 10/13/16 07:57 Dose: Not Given Admin: 10/12/16 17:29 Dose: 11 units Admin: 10/12/16 12:09 Dose: 5 units Admin: 10/12/16 08:01 Dose: 5 units Admin: 10/11/16 17:53 Dose: 5 units Insulin Detemir (Levemir) 30 unit SUBCUT BEDTIME [facility] Last Admin: 10/13/16 20:50 Dose: 30 units Admin: 10/12/16 21:00 Dose: 30 units Ketoconazole (Nizoral 2% Crm) 0 - 1 gm TOP BID [facility] Last Admin: 10/14/16 08:33 Dose: 1 applic Admin: 10/13/16 20:40 Dose: Not Given Admin: 10/13/16 08:13 Dose: 1 applic Admin: 10/12/16 20:43 Dose: Not Given Lidocaine (Lidoderm 5%) 700 mg TOP DAILY [facility] Last Admin: 10/14/16 08:34 Dose: 700 mg Admin: 10/13/16 08:14 Dose: 700 mg Admin: 10/12/16 07:45 Dose: 700 mg Lorazepam (Ativan) 1 mg PO TID [facility] Last Admin: 10/14/16 08:20 Dose: 1 mg Admin: 10/13/16 20:39 Dose: 1 mg Admin: 10/13/16 14:01 Dose: 1 mg Admin: 10/13/16 07:40 Dose: 1 mg Admin: 10/12/16 20:12 Dose: 1 mg Admin: 10/12/16 13:16 Dose: 1 mg Admin: 10/12/16 07:42 Dose: 1 mg Admin: 10/11/16 21:05 Dose: 1 mg Melatonin (Melatonin) 3 mg PO BEDTIME [facility] Last Admin: 10/13/16 20:38 Dose: 3 mg Admin: 10/12/16 20:12 Dose: 3 mg Metolazone (Zaroxolyn) 5 mg PO DAILY@0700 [facility] Last Admin: 10/14/16 08:29 Dose: Admin: 10/14/16 05:42 Dose: 5 mg Admin: 10/13/16 06:02 Dose: 5 mg Metoprolol Tartrate (Lopressor) 25 mg PO BID [facility] Last Admin: 10/14/16 08:22 Dose: 25 mg Admin: 10/13/16 20:50 Dose: 25 mg Admin: 10/13/16 07:43 Dose: 25 mg Admin: 10/12/16 20:16 Dose: 25 mg Admin: 10/12/16 07:46 Dose: 25 mg Admin: 10/11/16 21:07 Dose: 25 mg Miscellaneous Information (Remove Patch) 1 ea TRDERM Q72H [facility] Last Admin: 10/12/16 17:39 Dose: 1 ea Montelukast Sodium (Singulair) 10 mg PO DAILY@1200 [facility] Last Admin: 10/13/16 11:51 Dose: 10 mg Admin: 10/12/16 12:06 Dose: 10 mg Multivitamins/Minerals/Vitamin C (Childrens Chewable Vitamin) 1 tab PO DAILY@ 1200 [facility] Last Admin: 10/13/16 11:51 Dose: 1 tab Admin: 10/12/16 12:06 Dose: 1 tab Nicotine (Habitrol) 14 mg TRDERM Q24H [facility] Last Admin: 10/13/16 09:16 Dose: 14 mg Admin: 10/12/16 10:28 Dose: Not Given (Umeclidinium [place] [Incruse Ellipta] 1 Puff) 1 puff IH DAILY [facility] Last Admin: 10/14/16 08:36 Dose: 1 puff Admin: 10/13/16 08:01 Dose: 1 puff Admin: 10/12/16 08:26 Dose: 1 puff Nystatin (Nystop) 0 - 1 gm TOP TID [facility] Last Admin: 10/14/16 08:34 Dose: Not Given Admin: 10/13/16 20:40 Dose: Not Given Admin: 10/13/16 14:02 Dose: Not Given Admin: 10/13/16 08:12 Dose: 1 gm Admin: 10/12/16 20:40 Dose: 1 gm Admin: 10/12/16 13:19 Dose: Not Given Omeprazole (Omeprazole) 20 mg PO ACBRK [facility] Last Admin: 10/14/16 08:24 Dose: 20 mg Admin: 10/14/16 05:45 Dose: 20 mg Admin: 10/13/16 06:03 Dose: 20 mg Admin: 10/12/16 06:56 Dose: 20 mg Admin: 10/11/16 21:48 Dose: Ondansetron HCl (Zofran Odt) 4 mg PO Q6H PRN PRN Reason: NAUSEA/VOMITING Prednisone (Prednisone) 40 mg PO DAILY [facility] Last Admin: 10/14/16 08:21 Dose: 40 mg Admin: 10/13/16 07:44 Dose: 40 mg Admin: 10/12/16 07:54 Dose: 40 mg Roflumilast (Daliresp) 500 mcg PO DAILY [facility] Last Admin: 10/14/16 08:20 Dose: 500 mcg Admin: 10/13/16 07:42 Dose: 500 mcg Admin: 10/12/16 07:44 Dose: 500 mcg Senna/Docusate Sodium (Senna Plus) 1 tab PO BID [facility] Last Admin: 10/14/16 08:36 Dose: Not Given Admin: 10/13/16 20:41 Dose: Not Given Admin: 10/13/16 07:47 Dose: Admin: 10/12/16 20:43 Dose: Not Given Admin: 10/12/16 07:55 Dose: 1 tab Admin: 10/11/16 21:06 Dose: 1 tab Tramadol HCl (Ultram) 50 mg PO QID [facility] Last Admin: 10/14/16 08:23 Dose: 50 mg Admin: 10/13/16 20:39 Dose: 50 mg Admin: 10/13/16 16:30 Dose: 50 mg Admin: 10/13/16 11:52 Dose: 50 mg Admin: 10/13/16 07:45 Dose: 50 mg Admin: 10/12/16 20:09 Dose: 50 mg Admin: 10/12/16 16:17 Dose: 50 mg Admin: 10/12/16 12:06 Dose: 50 mg Admin: 10/12/16 07:55 Dose: 50 mg Admin: 10/11/16 21:06 Dose: 50 mg Triamcinolone Acetonide (Triamcinolone Acetonide 0.5% Oint) 0 - 1 gm TOP BID [facility] Last Admin: 10/13/16 20:40 Dose: Not Given Admin: 10/13/16 09:44 Dose: Not Given Admin: 10/13/16 05:17 Dose: Not Given Assessment/Plan Comment:: Patient admitted to swing bed for PT/OT strengthening and evaluation. We will continue pain management and monitoring of her leukocytosis and anemia. Patient has been very stable and doing well with PT/OT. Femur Fracture post op - PT/OT and f/u with Orthopedics as routine shcedule COPD/CHF - controlled - continue on current medication regiment. 2L oxygen and daily vitals Depression and anxiety - controlled and continue medications. Chronic Back pain - continue pain management and monitoring. Diabetes - Novolog sliding scale and Levemir with BS glucose monitoring. Diabetic/Heart healthy diet. HTN - controlled - on medication
[2016-10-14] MEDS: Nicotine 14 MG/24 Hr Patch TRDERM SCH ×2 (09:15→12:45)
[2016-10-14] MEDS: Triamcinolone Acetonide 0.5% Oint 15 GM Tube TOP SCH ×2 (10:22→21:39)
[2016-10-14] MEDS: Montelukast 10 MG Tab PO SCH (12:44)
[2016-10-14] MEDS: Multivitamin, Childrens Tab.Chew PO SCH (12:44)
[2016-10-14] MEDS: Cholecalciferol (Vitamin D3) 1,000 Unit Tab PO SCH (12:45)
--- NOTE | 2016-10-14 15:22 | PCM.PRNOTE ---
- Free Text/Narrative Note: Right shoulder prepped sterilely and injected with 2-2-2 22ga anteriorly as well as 1-1-1 27ga laterally for the subacromial bursa. No complications. Patient tolerated procedure well. Discussed side effects and f/u as routine. Left lower leg wart frozen with freeze gun. No complications. Patient tolerated procedure well. F/u as directed.
[2016-10-14] MEDS: Insulin Detemir 100 Units/ML 3 ML Pen SUBCUT SCH (21:12)
[2016-10-14] MEDS: Desvenlafaxine 50 MG Tab.ER PO SCH (21:14)
[2016-10-14] MEDS: Melatonin 3 MG Tab PO SCH (21:14)
[2016-10-14] MEDS: diphenhydrAMINE 25 MG Cap PO PRN (21:16)
[2016-10-15] MEDS: Acetaminophen/HYDROcodone 325-10 MG Tab PO PRN ×3 (02:56→17:50)
[2016-10-15] MEDS: Albuterol/Ipratropium 3.0-0.5 MG/3 ML Neb Soln INH PRN (04:31)
[2016-10-15] MEDS: Metolazone 5 MG Tab PO SCH ×2 (05:54→07:33)
[2016-10-15] MEDS: Omeprazole 20 MG Cap.CR PO SCH ×2 (05:54→07:33)
[2016-10-15] MEDS: Ferrous Sulfate 325 MG Tab PO SCH ×2 (05:55→07:33)
[2016-10-15] MEDS: LORazepam 1 MG Tab PO SCH ×3 (07:34→20:54)
[2016-10-15] MEDS: Diltiazem 240 MG Cap.CD PO SCH (07:36)
[2016-10-15] MEDS: Roflumilast 500 MCG Tab PO SCH (07:37)
[2016-10-15] MEDS: glipiZIDE 2.5 MG Tab.ER PO SCH (07:37)
[2016-10-15] MEDS: Fluticasone Propionate Nasal Spray 16 GM Bottle NASBOTH SCH (07:37)
[2016-10-15] MEDS: Furosemide 40 MG Tab PO SCH (07:38)
[2016-10-15] MEDS: guaiFENesin 600 MG Tab.ER PO SCH ×2 (07:38→20:55)
[2016-10-15] MEDS: Metoprolol Tartrate 25 MG Tab PO SCH ×2 (07:38→20:52)
[2016-10-15] MEDS: Enoxaparin 40 MG/0.4 ML Syringe SUBCUT SCH (07:38)
[2016-10-15] MEDS: traMADol 50 MG Tab PO SCH ×4 (07:39→20:53)
[2016-10-15] MEDS: Gabapentin 300 MG Cap PO SCH ×3 (07:39→21:02)
[2016-10-15] MEDS: Triamcinolone Acetonide 0.5% Oint 15 GM Tube TOP SCH ×2 (07:39→21:09)
[2016-10-15] MEDS: predniSONE 20 MG Tab PO SCH (07:39)
[2016-10-15] MEDS: Nystatin Topical Powder 15 GM Bottle TOP SCH ×3 (07:47→21:03)
[2016-10-15] MEDS: Lidocaine 5% 700 MG Patch TOP SCH (07:48)
[2016-10-15] MEDS: Acetylcysteine 20% 200 MG/ML 30 ML Nebulizer Soln SDV NEB SCH ×2 (08:01→20:55)
[2016-10-15] MEDS: Ketoconazole 2% Crm 30 GM Tube TOP SCH ×2 (08:03→21:02)
[2016-10-15] MEDS: Insulin Aspart 100 Units/ML 3 ML Pen SUBCUT SCH ×3 (08:04→17:18)
[2016-10-15] MEDS: Budesonide 0.5 MG/2 ML Neb Susp INH SCH ×2 (09:00→20:37)
[2016-10-15] MEDS: Albuterol 0.083% 2.5 MG/3 ML Neb Soln INH SCH ×4 (09:13→20:35)
[2016-10-15] MEDS: Nicotine 14 MG/24 Hr Patch TRDERM SCH (11:27)
[2016-10-15] MEDS: Cholecalciferol (Vitamin D3) 1,000 Unit Tab PO SCH (11:43)
[2016-10-15] MEDS: Multivitamin, Childrens Tab.Chew PO SCH (11:43)
[2016-10-15] MEDS: Montelukast 10 MG Tab PO SCH (11:43)
[2016-10-15] MEDS: fentaNYL 50 MCG/HR Transdermal Patch TRDERM SCH (17:16)
[2016-10-15] MEDS: Desvenlafaxine 50 MG Tab.ER PO SCH (20:36)
[2016-10-15] MEDS: Melatonin 3 MG Tab PO SCH (20:53)
[2016-10-15] MEDS: Insulin Detemir 100 Units/ML 3 ML Pen SUBCUT SCH (21:16)
[2016-10-16] MEDS: Acetaminophen/HYDROcodone 325-10 MG Tab PO PRN ×2 (01:48→21:18)
[2016-10-16] MEDS: diphenhydrAMINE 25 MG Cap PO PRN ×2 (01:50→19:54)
[2016-10-16] MEDS: Ferrous Sulfate 325 MG Tab PO SCH (06:19)
[2016-10-16] MEDS: Metolazone 5 MG Tab PO SCH (06:19)
[2016-10-16] MEDS: Omeprazole 20 MG Cap.CR PO SCH (06:20)
[2016-10-16] MEDS: LORazepam 1 MG Tab PO SCH ×3 (07:35→19:53)
[2016-10-16] MEDS: traMADol 50 MG Tab PO SCH ×4 (07:36→19:52)
[2016-10-16] MEDS: glipiZIDE 2.5 MG Tab.ER PO SCH (07:36)
[2016-10-16] MEDS: Gabapentin 300 MG Cap PO SCH ×3 (07:36→19:52)
[2016-10-16] MEDS: predniSONE 20 MG Tab PO SCH (07:36)
[2016-10-16] MEDS: Furosemide 40 MG Tab PO SCH (07:36)
[2016-10-16] MEDS: Roflumilast 500 MCG Tab PO SCH (07:36)
[2016-10-16] MEDS: Metoprolol Tartrate 25 MG Tab PO SCH ×2 (07:37→19:54)
[2016-10-16] MEDS: Diltiazem 240 MG Cap.CD PO SCH (07:38)
[2016-10-16] MEDS: Fluticasone Propionate Nasal Spray 16 GM Bottle NASBOTH SCH (07:40)
[2016-10-16] MEDS: guaiFENesin 600 MG Tab.ER PO SCH ×2 (07:41→19:54)
[2016-10-16] MEDS: Ketoconazole 2% Crm 30 GM Tube TOP SCH ×2 (07:41→19:56)
[2016-10-16] MEDS: Budesonide 0.5 MG/2 ML Neb Susp INH SCH ×2 (07:42→19:57)
[2016-10-16] MEDS: Nystatin Topical Powder 15 GM Bottle TOP SCH ×3 (07:44→19:56)
[2016-10-16] MEDS: Triamcinolone Acetonide 0.5% Oint 15 GM Tube TOP SCH ×2 (07:45→19:58)
[2016-10-16] MEDS: Enoxaparin 40 MG/0.4 ML Syringe SUBCUT SCH (07:46)
[2016-10-16] MEDS: Lidocaine 5% 700 MG Patch TOP SCH (07:52)
[2016-10-16] MEDS: Insulin Aspart 100 Units/ML 3 ML Pen SUBCUT SCH ×3 (07:57→17:05)
[2016-10-16] MEDS: Nicotine 14 MG/24 Hr Patch TRDERM SCH (08:32)
[2016-10-16] MEDS: Acetylcysteine 20% 200 MG/ML 30 ML Nebulizer Soln SDV NEB SCH ×2 (08:44→19:56)
[2016-10-16] MEDS ORDERED: Diltiazem 120 MG Cap.CD PO ONE (08:52)
[2016-10-16] MEDS ORDERED: Diltiazem 120 MG Cap.CD ONE (08:59)
[2016-10-16] MEDS: Albuterol 0.083% 2.5 MG/3 ML Neb Soln INH SCH ×4 (09:13→19:51)
[2016-10-16] MEDS: Montelukast 10 MG Tab PO SCH (11:47)
[2016-10-16] MEDS: Cholecalciferol (Vitamin D3) 1,000 Unit Tab PO SCH (11:47)
[2016-10-16] MEDS: Multivitamin, Childrens Tab.Chew PO SCH (11:47)
[2016-10-16] MEDS: Desvenlafaxine 50 MG Tab.ER PO SCH (19:53)
[2016-10-16] MEDS: Melatonin 3 MG Tab PO SCH (19:55)
[2016-10-16] MEDS: Insulin Detemir 100 Units/ML 3 ML Pen SUBCUT SCH (20:12)
[2016-10-17] MEDS: Omeprazole 20 MG Cap.CR PO SCH (06:23)
[2016-10-17] MEDS: Metolazone 5 MG Tab PO SCH (06:24)
[2016-10-17] MEDS: Ferrous Sulfate 325 MG Tab PO SCH (06:24)
[2016-10-17] MEDS: Budesonide 0.5 MG/2 ML Neb Susp INH SCH ×2 (08:04→20:17)
[2016-10-17] MEDS: Albuterol 0.083% 2.5 MG/3 ML Neb Soln INH SCH ×4 (08:05→20:17)
[2016-10-17] MEDS: Enoxaparin 40 MG/0.4 ML Syringe SUBCUT SCH (08:05)
[2016-10-17] MEDS: traMADol 50 MG Tab PO SCH ×4 (08:06→20:13)
[2016-10-17] MEDS: Roflumilast 500 MCG Tab PO SCH (08:07)
[2016-10-17] MEDS: glipiZIDE 2.5 MG Tab.ER PO SCH (08:07)
[2016-10-17] MEDS: LORazepam 1 MG Tab PO SCH ×3 (08:07→20:16)
[2016-10-17] MEDS: Gabapentin 300 MG Cap PO SCH ×3 (08:08→20:14)
[2016-10-17] MEDS: Metoprolol Tartrate 25 MG Tab PO SCH ×2 (08:08→20:16)
[2016-10-17] MEDS: Fluticasone Propionate Nasal Spray 16 GM Bottle NASBOTH SCH (08:09)
[2016-10-17] MEDS: Diltiazem 240 MG Cap.CD PO SCH (08:09)
[2016-10-17] MEDS: Furosemide 40 MG Tab PO SCH (08:09)
[2016-10-17] MEDS: Acetylcysteine 20% 200 MG/ML 30 ML Nebulizer Soln SDV NEB SCH ×2 (08:10→20:17)
[2016-10-17] MEDS: Lidocaine 5% 700 MG Patch TOP SCH (08:10)
[2016-10-17] MEDS: Ketoconazole 2% Crm 30 GM Tube TOP SCH ×2 (08:11→20:18)
[2016-10-17] MEDS: Insulin Aspart 100 Units/ML 3 ML Pen SUBCUT SCH ×3 (08:11→17:28)
[2016-10-17] MEDS: Nystatin Topical Powder 15 GM Bottle TOP SCH ×3 (08:12→20:18)
[2016-10-17] MEDS: predniSONE 20 MG Tab PO SCH (08:12)
[2016-10-17] MEDS: Triamcinolone Acetonide 0.5% Oint 15 GM Tube TOP SCH ×2 (08:12→20:19)
[2016-10-17] MEDS: guaiFENesin 600 MG Tab.ER PO SCH ×2 (10:38→20:15)
[2016-10-17] MEDS: Nicotine 21 MG/24 Hr Patch TRDERM SCH (10:39)
[2016-10-17] MEDS: Nicotine 14 MG/24 Hr Patch TRDERM SCH (10:40)
[2016-10-17] MEDS: Acetaminophen/HYDROcodone 325-10 MG Tab PO PRN ×2 (10:47→20:20)
[2016-10-17] MEDS: Multivitamin, Childrens Tab.Chew PO SCH (12:00)
[2016-10-17] MEDS: Montelukast 10 MG Tab PO SCH (12:03)
[2016-10-17] MEDS: Cholecalciferol (Vitamin D3) 1,000 Unit Tab PO SCH (12:03)
[2016-10-17] MEDS: diphenhydrAMINE 25 MG Cap PO PRN (20:12)
[2016-10-17] MEDS: Melatonin 3 MG Tab PO SCH (20:13)
[2016-10-17] MEDS: Desvenlafaxine 50 MG Tab.ER PO SCH (20:13)
[2016-10-17] MEDS: Insulin Detemir 100 Units/ML 3 ML Pen SUBCUT SCH (20:51)
[2016-10-18] MEDS: Ferrous Sulfate 325 MG Tab PO SCH (06:42)
[2016-10-18] MEDS: Omeprazole 20 MG Cap.CR PO SCH (06:42)
[2016-10-18] MEDS: Metolazone 5 MG Tab PO SCH (06:42)
--- NOTE | 2016-10-18 07:12 | CR ---
Date of Service: 10/15/16 Clinical Data: Pain. RIGHT SHOULDER Single view was performed. There is diffuse osteopenia. No evidence of acute fracture or dislocation. [id number]
[2016-10-18] MEDS: predniSONE 20 MG Tab PO SCH (07:53)
[2016-10-18] MEDS: Diltiazem 240 MG Cap.CD PO SCH (07:53)
[2016-10-18] MEDS: LORazepam 1 MG Tab PO SCH ×4 (07:54→20:30)
[2016-10-18] MEDS: glipiZIDE 2.5 MG Tab.ER PO SCH (07:54)
[2016-10-18] MEDS: Gabapentin 300 MG Cap PO SCH ×3 (07:54→20:31)
[2016-10-18] MEDS: traMADol 50 MG Tab PO SCH ×4 (07:54→20:31)
[2016-10-18] MEDS: Roflumilast 500 MCG Tab PO SCH (07:54)
[2016-10-18] MEDS: Metoprolol Tartrate 25 MG Tab PO SCH ×2 (07:55→20:34)
[2016-10-18] MEDS: Furosemide 40 MG Tab PO SCH (07:55)
[2016-10-18] MEDS: Enoxaparin 40 MG/0.4 ML Syringe SUBCUT SCH (07:56)
[2016-10-18] MEDS: Fluticasone Propionate Nasal Spray 16 GM Bottle NASBOTH SCH (07:56)
[2016-10-18] MEDS: Albuterol 0.083% 2.5 MG/3 ML Neb Soln INH SCH ×4 (07:56→20:29)
[2016-10-18] MEDS: Ketoconazole 2% Crm 30 GM Tube TOP SCH ×2 (07:57→20:36)
[2016-10-18] MEDS: guaiFENesin 600 MG Tab.ER PO SCH ×2 (07:57→20:35)
[2016-10-18] MEDS: Lidocaine 5% 700 MG Patch TOP SCH (07:57)
[2016-10-18] MEDS: Insulin Aspart 100 Units/ML 3 ML Pen SUBCUT SCH ×3 (07:58→17:20)
[2016-10-18] MEDS: Acetylcysteine 20% 200 MG/ML 30 ML Nebulizer Soln SDV NEB SCH ×2 (08:02→20:36)
[2016-10-18] MEDS: Nystatin Topical Powder 15 GM Bottle TOP SCH ×3 (08:02→20:36)
[2016-10-18] MEDS: Budesonide 0.5 MG/2 ML Neb Susp INH SCH ×2 (08:04→20:29)
[2016-10-18] MEDS: Triamcinolone Acetonide 0.5% Oint 15 GM Tube TOP SCH ×2 (08:04→20:37)
[2016-10-18] MEDS: Cholecalciferol (Vitamin D3) 1,000 Unit Tab PO SCH (11:55)
[2016-10-18] MEDS: Multivitamin, Childrens Tab.Chew PO SCH (11:55)
[2016-10-18] MEDS: Montelukast 10 MG Tab PO SCH (11:55)
[2016-10-18] MEDS: Nicotine 14 MG/24 Hr Patch TRDERM SCH (12:03)
[2016-10-18] MEDS: fentaNYL 50 MCG/HR Transdermal Patch TRDERM SCH (19:09)
[2016-10-18] MEDS: Melatonin 3 MG Tab PO SCH (20:33)
[2016-10-18] MEDS: Desvenlafaxine 50 MG Tab.ER PO SCH (20:33)
[2016-10-18] MEDS: diphenhydrAMINE 25 MG Cap PO PRN (20:42)
[2016-10-18] MEDS: Acetaminophen/HYDROcodone 325-10 MG Tab PO PRN (20:43)
[2016-10-18] MEDS: Insulin Detemir 100 Units/ML 3 ML Pen SUBCUT SCH (20:49)
[2016-10-19] MEDS: Ferrous Sulfate 325 MG Tab PO SCH (06:15)
[2016-10-19] MEDS: Omeprazole 20 MG Cap.CR PO SCH (06:15)
[2016-10-19] MEDS: Metolazone 5 MG Tab PO SCH (06:15)
[2016-10-19] MEDS: traMADol 50 MG Tab PO SCH ×4 (08:55→19:54)
[2016-10-19] MEDS: glipiZIDE 2.5 MG Tab.ER PO SCH (08:55)
[2016-10-19] MEDS: predniSONE 20 MG Tab PO SCH (08:56)
[2016-10-19] MEDS: Roflumilast 500 MCG Tab PO SCH (08:56)
[2016-10-19] MEDS: Gabapentin 300 MG Cap PO SCH ×3 (08:56→19:53)
[2016-10-19] MEDS: Furosemide 40 MG Tab PO SCH (08:57)
[2016-10-19] MEDS: Metoprolol Tartrate 25 MG Tab PO SCH ×2 (08:57→20:01)
[2016-10-19] MEDS: LORazepam 1 MG Tab PO SCH ×4 (08:57→20:01)
[2016-10-19] MEDS: Diltiazem 240 MG Cap.CD PO SCH (08:57)
[2016-10-19] MEDS: Lidocaine 5% 700 MG Patch TOP SCH (08:58)
[2016-10-19] MEDS: Fluticasone Propionate Nasal Spray 16 GM Bottle NASBOTH SCH (08:58)
[2016-10-19] MEDS: Albuterol 0.083% 2.5 MG/3 ML Neb Soln INH SCH ×4 (08:58→20:05)
[2016-10-19] MEDS: guaiFENesin 600 MG Tab.ER PO SCH ×2 (08:59→19:54)
[2016-10-19] MEDS: Enoxaparin 40 MG/0.4 ML Syringe SUBCUT SCH (08:59)
[2016-10-19] MEDS: Ketoconazole 2% Crm 30 GM Tube TOP SCH ×2 (08:59→20:03)
[2016-10-19] MEDS: Acetylcysteine 20% 200 MG/ML 30 ML Nebulizer Soln SDV NEB SCH ×2 (09:02→20:02)
[2016-10-19] MEDS: Insulin Aspart 100 Units/ML 3 ML Pen SUBCUT SCH ×3 (09:16→17:25)
[2016-10-19] MEDS: Nystatin Topical Powder 15 GM Bottle TOP SCH ×3 (09:47→20:03)
[2016-10-19] MEDS: Budesonide 0.5 MG/2 ML Neb Susp INH SCH ×2 (09:47→20:05)
[2016-10-19] MEDS: Nicotine 14 MG/24 Hr Patch TRDERM SCH (09:48)
[2016-10-19] MEDS: Triamcinolone Acetonide 0.5% Oint 15 GM Tube TOP SCH ×2 (09:48→20:06)
[2016-10-19] MEDS: Acetaminophen/HYDROcodone 325-10 MG Tab PO PRN (11:15)
[2016-10-19] MEDS: Multivitamin, Childrens Tab.Chew PO SCH (12:42)
[2016-10-19] MEDS: Montelukast 10 MG Tab PO SCH (12:42)
[2016-10-19] MEDS: Cholecalciferol (Vitamin D3) 1,000 Unit Tab PO SCH (12:42)
[2016-10-19] MEDS: Albuterol/Ipratropium 3.0-0.5 MG/3 ML Neb Soln INH PRN ×2 (15:43→20:04)
[2016-10-19] MEDS: Insulin Detemir 100 Units/ML 3 ML Pen SUBCUT SCH (19:58)
[2016-10-19] MEDS: Desvenlafaxine 50 MG Tab.ER PO SCH (20:00)
[2016-10-19] MEDS: Melatonin 3 MG Tab PO SCH (20:00)
[2016-10-19] MEDS: diphenhydrAMINE 25 MG Cap PO PRN (20:12)
[2016-10-20] MEDS: LORazepam 1 MG Tab PO SCH ×4 (06:28→19:57)
[2016-10-20] MEDS: Omeprazole 20 MG Cap.CR PO SCH (06:28)
[2016-10-20] MEDS: Ferrous Sulfate 325 MG Tab PO SCH (06:28)
[2016-10-20] MEDS: Metolazone 5 MG Tab PO SCH (06:28)
[2016-10-20] MEDS: Acetylcysteine 20% 200 MG/ML 30 ML Nebulizer Soln SDV NEB SCH ×2 (07:42→20:04)
[2016-10-20] MEDS: traMADol 50 MG Tab PO SCH ×4 (07:48→19:59)
[2016-10-20] MEDS: Diltiazem 240 MG Cap.CD PO SCH (07:50)
[2016-10-20] MEDS: Roflumilast 500 MCG Tab PO SCH (07:51)
[2016-10-20] MEDS: Fluticasone Propionate Nasal Spray 16 GM Bottle NASBOTH SCH (07:51)
[2016-10-20] MEDS: glipiZIDE 2.5 MG Tab.ER PO SCH (07:52)
[2016-10-20] MEDS: Furosemide 40 MG Tab PO SCH (07:52)
[2016-10-20] MEDS: Metoprolol Tartrate 25 MG Tab PO SCH ×2 (07:53→19:58)
[2016-10-20] MEDS: guaiFENesin 600 MG Tab.ER PO SCH ×2 (07:53→19:59)
[2016-10-20] MEDS: Gabapentin 300 MG Cap PO SCH ×3 (07:54→19:58)
[2016-10-20] MEDS: predniSONE 20 MG Tab PO SCH (07:54)
[2016-10-20] MEDS: Enoxaparin 40 MG/0.4 ML Syringe SUBCUT SCH (07:57)
[2016-10-20] MEDS: Albuterol 0.083% 2.5 MG/3 ML Neb Soln INH SCH ×4 (07:58→19:56)
[2016-10-20] MEDS: Budesonide 0.5 MG/2 ML Neb Susp INH SCH ×2 (07:59→19:56)
[2016-10-20] MEDS: Triamcinolone Acetonide 0.5% Oint 15 GM Tube TOP SCH ×2 (08:00→20:06)
[2016-10-20] MEDS: Insulin Aspart 100 Units/ML 3 ML Pen SUBCUT SCH ×3 (08:02→17:14)
[2016-10-20] MEDS: Lidocaine 5% 700 MG Patch TOP SCH (08:09)
[2016-10-20] MEDS: Nystatin Topical Powder 15 GM Bottle TOP SCH ×4 (08:10→20:06)
[2016-10-20] MEDS: Ketoconazole 2% Crm 30 GM Tube TOP SCH ×2 (08:12→20:06)
[2016-10-20] MEDS: Nicotine 14 MG/24 Hr Patch TRDERM SCH (10:38)
[2016-10-20] MEDS: Multivitamin, Childrens Tab.Chew PO SCH (12:08)
[2016-10-20] MEDS: Montelukast 10 MG Tab PO SCH (12:08)
[2016-10-20] MEDS: Cholecalciferol (Vitamin D3) 1,000 Unit Tab PO SCH (12:08)
--- NOTE | 2016-10-20 16:36 | PCM.PN ---
- General Info Date of Service: 10/18/16 Subjective Update: Patient states she feels slightly more short of breath this week. Patient has been feeling anxious as well. There has been difficulty with management of her sugars but this may be due to the chronic prednisone use. Patient states her leg pain has improved greatly and almost resolved but she has chronic back pain as well. - Review of Systems General: Reports: Weakness, Fatigue HEENT: Reports: no symptoms Pulmonary: Reports: shortness of breath (chronic) Cardiovascular: Reports: No Symptoms Gastrointestinal: Reports: No symptoms Genitourinary: Reports: frequency Musculoskeletal: Reports: back pain, leg pain Neurological: Reports: No Symptoms Psychiatric: Reports: anxiety - Patient Data Vitals - most recent: Last Vital Signs Temp 36.3 C 10/20/16 08:00 Pulse 117 H 10/20/16 08:00 Resp 20 10/20/16 08:00 BP 138/84 10/20/16 08:00 Pulse Ox 98 10/20/16 08:00 Weight - most recent: 97.692 kg Lab Results last 24 hrs: Laboratory Results - last 24 hr 10/19/16 10/20/16 10/20/16 Range/Units 16:17 06:46 10:50 POC Glucose 332 H 199 H 328 H (74-110) mg/dL Med Orders - Current: Current Medications Acetaminophen (Tylenol) 650 mg PO Q6H PRN PRN Reason: MILD PAIN Last Admin: 10/12/16 21:11 Dose: 650 mg Acetaminophen/Hydrocodone Bitart ([place] 325-10 Mg) 2 tab PO Q4H PRN PRN Reason: pain Last Admin: 10/19/16 11:15 Dose: 2 tab Acetylcysteine (Mucomyst 20%) 200 mg NEB BID [facility] Last Admin: 10/20/16 07:42 Dose: 200 mg Albuterol (Proventil Neb Soln) 2.5 mg INH QID [facility] Last Admin: 10/20/16 16:27 Dose: 2.5 mg Albuterol (Ventolin Hfa) 0 gm INH Q4H PRN PRN Reason: Dyspnea Albuterol/Ipratropium (Duoneb 3.0-0.5 Mg/3 Ml) 3 ml INH QID PRN PRN Reason: Shortness of Breath Last Admin: 10/19/16 20:04 Dose: 3 ml Budesonide (Pulmicort) 0.5 mg INH BID [facility] Last Admin: 10/20/16 07:59 Dose: 0.5 mg Cholecalciferol (Vitamin D3) 1,000 units PO DAILY@1200 [facility] Last Admin: 10/20/16 12:08 Dose: 1,000 units Desvenlafaxine Succinate (Pristiq) 50 mg PO QPM [facility] Last Admin: 10/19/16 20:00 Dose: 50 mg Diltiazem HCl (Cardizem Cd) 240 mg PO DAILY [facility] Last Admin: 10/20/16 07:50 Dose: 240 mg Diphenhydramine HCl (Benadryl) 25 mg PO Q4H PRN PRN Reason: Allergies Last Admin: 10/19/16 20:12 Dose: 25 mg Enoxaparin Sodium (Lovenox) 40 mg SUBCUT DAILY [facility] Last Admin: 10/20/16 07:57 Dose: 40 mg Fentanyl (Duragesic) 50 mcg TRDERM Q72H [facility] Last Admin: 10/18/16 19:09 Dose: 50 mcg Ferrous Sulfate (Ferrous Sulfate) 325 mg PO ACBREAKFAST [facility] Last Admin: 10/20/16 06:28 Dose: 325 mg Fluticasone Propionate (Flonase) 0 gm NASBOTH DAILY [facility] Last Admin: 10/20/16 07:51 Dose: 1 spray Formoterol Fumarate (Perforomist) 20 mcg NEB BID [facility] Last Admin: 10/20/16 08:01 Dose: 20 mcg Furosemide (Lasix) 40 mg PO DAILY [facility] Last Admin: 10/20/16 07:52 Dose: 40 mg Gabapentin (Neurontin) 600 mg PO TID [facility] Last Admin: 10/20/16 13:57 Dose: 600 mg Glipizide (Glucotrol Xl) 2.5 mg PO DAILY [facility] Last Admin: 10/20/16 07:52 Dose: 2.5 mg Guaifenesin (Mucinex) 600 mg PO BID [facility] Last Admin: 10/20/16 07:53 Dose: 600 mg Insulin Aspart (Novolog) 0 unit SUBCUT TIDMEALS [facility] PRN Reason: Protocol Last Admin: 10/20/16 12:12 Dose: 14 units Insulin Detemir (Levemir) 15 unit SUBCUT Q12HR [facility] Ketoconazole (Nizoral 2% Crm) 0 - 1 gm TOP BID [facility] Last Admin: 10/20/16 08:12 Dose: 1 applic Lidocaine (Lidoderm 5%) 700 mg TOP DAILY [facility] Last Admin: 10/20/16 08:09 Dose: 700 mg Lorazepam (Ativan) 1 mg PO TID [facility] Last Admin: 10/20/16 13:56 Dose: 1 mg Melatonin (Melatonin) 3 mg PO BEDTIME [facility] Last Admin: 10/19/16 20:00 Dose: 3 mg Metolazone (Zaroxolyn) 5 mg PO DAILY@0700 [facility] Last Admin: 10/20/16 06:28 Dose: 5 mg Metoprolol Tartrate (Lopressor) 25 mg PO BID [facility] Last Admin: 10/20/16 07:53 Dose: 25 mg Miscellaneous Information (Remove Patch) 1 ea TRDERM Q72H [facility] Last Admin: 10/18/16 19:10 Dose: 1 ea Montelukast Sodium (Singulair) 10 mg PO DAILY@1200 [facility] Last Admin: 10/20/16 12:08 Dose: 10 mg Multivitamins/Minerals/Vitamin C (Childrens Chewable Vitamin) 1 tab PO DAILY@ 1200 [facility] Last Admin: 10/20/16 12:08 Dose: 1 tab Nicotine (Habitrol) 14 mg TRDERM Q24H [facility] Last Admin: 10/20/16 10:38 Dose: 14 mg (Umeclidinium Mobile [Incruse Ellipta] 1 Puff) 1 puff IH DAILY [facility] Last Admin: 10/20/16 07:59 Dose: 1 puff Nystatin (Nystop) 0 - 1 gm TOP TID [facility] Last Admin: 10/20/16 15:11 Dose: Not Given Omeprazole (Omeprazole) 20 mg PO ACBRK [facility] Last Admin: 10/20/16 06:28 Dose: 20 mg Ondansetron HCl (Zofran Odt) 4 mg PO Q6H PRN PRN Reason: NAUSEA/VOMITING Last Admin: 10/20/16 12:06 Dose: 4 mg Prednisone (Prednisone) 40 mg PO DAILY [facility] Last Admin: 10/20/16 07:54 Dose: 40 mg Roflumilast (Daliresp) 500 mcg PO DAILY [facility] Last Admin: 10/20/16 07:51 Dose: 500 mcg Senna/Docusate Sodium (Senna Plus) 1 tab PO BID [facility] Last Admin: 10/20/16 07:59 Dose: Not Given Tramadol HCl (Ultram) 50 mg PO QID [facility] Last Admin: 10/20/16 16:25 Dose: 50 mg Triamcinolone Acetonide (Triamcinolone Acetonide 0.5% Oint) 0 - 1 gm TOP BID [facility] Last Admin: 10/20/16 08:00 Dose: Not Given Discontinued Medications Acetaminophen (Tylenol Extra Strength) 1,000 mg PO TID [facility] Last Admin: 10/12/16 07:55 Dose: 1,000 mg Acetylcysteine (Mucomyst 20%) 800 mg INH BID [facility] Last Admin: 10/11/16 21:53 Dose: 200 mg Albuterol (Ventolin Hfa) 0 gm INH Q4HR PRN PRN Reason: Dyspnea Desvenlafaxine Succinate (Pristiq) 50 mg PO ONETIME ONE Stop: 10/11/16 21:25 Last Admin: 10/11/16 21:39 Dose: 50 mg Diltiazem HCl (Cardizem Cd) Confirm Administered Dose 240 mg .ROUTE .STK-MED ONE Stop: 10/12/16 12:56 Last Admin: 10/12/16 13:12 Dose: Not Given Diltiazem HCl (Cardizem Cd) 120 mg PO ONETIME ONE Stop: 10/16/16 08:53 Last Admin: 10/16/16 09:08 Dose: 120 mg Diltiazem HCl (Cardizem Cd) Confirm Administered Dose 120 mg .ROUTE .STK-MED ONE Stop: 10/16/16 09:00 Last Admin: 10/16/16 09:09 Dose: Not Given Fentanyl (Duragesic) 50 mcg TRDERM Q72H [facility] Formoterol Fumarate (Perforomist) 20 mcg NEB QID [facility] Last Admin: 10/12/16 08:42 Dose: 20 mcg Insulin Detemir (Levemir) 20 unit SUBCUT BEDTIME [facility] Last Admin: 10/11/16 21:46 Dose: 20 unit Insulin Detemir (Levemir) 30 unit SUBCUT BEDTIME [facility] Last Admin: 10/19/16 19:58 Dose: 30 units Insulin Glargine (Lantus Solostar) 20 units SUBCUT BEDTIME [facility] Last Admin: 10/11/16 21:40 Dose: Not Given Nicotine (Habitrol) 21 mg TRDERM Q24H [facility] Last Admin: 10/17/16 10:39 Dose: 21 mg Nystatin (Nystop) 0 gm TOP TID [facility] Last Admin: 10/12/16 08:27 Dose: Not Given Tuberculin PPD (Aplisol) 5 unit IDERM ONETIME ONE Stop: 10/11/16 16:53 Last Admin: 10/11/16 18:13 Dose: Not Given - Exam Quality Assessment: supplemental oxygen General: alert, oriented, cooperative HEENT: Pupils equal, Pupils reactive, EOMI Neck: supple Lungs: Decreased breath sounds, Rhonchi Cardiovascular: Regular Rhythm, Tachycardia Abdomen: bowel sounds present, soft, no tenderness Back Exam: paraspinal tenderness Extremities: edema (2+) Peripheral Pulses: 1+: dorsalis pedis (L), dorsalis pedis (R) Skin: warm, dry, intact Neurological: no new focal deficit Psy/Mental Status: alert, anxious - Problem List & Annotations (1) COPD (chronic obstructive pulmonary disease) SNOMED Code(s): 96123103 Code(s): J44.9 - CHRONIC OBSTRUCTIVE PULMONARY DISEASE, UNSPECIFIED Status : Chronic Priority: High Current Visit: Yes Qualifiers: COPD type: chronic bronchitis Chronic bronchitis type: unspecified Qualified Code(s): J42 - Unspecified chronic bronchitis (2) Anxiety SNOMED Code(s): 80675451 Code(s): F41.9 - ANXIETY DISORDER, UNSPECIFIED Status: Chronic Priority: Medium Current Visit: Yes (3) CHF, Congestive heart failure SNOMED Code(s): 41985056 Code(s): I50.9 - HEART FAILURE, UNSPECIFIED Status: Chronic Priority: Medium Current Visit: Yes Annotation/Comment:: 08/14/2013 Continue with Lasix po and weight will do Chem 8 today. (4) COPD (chronic obstructive pulmonary disease) SNOMED Code(s): 65924754 Code(s): J44.9 - CHRONIC OBSTRUCTIVE PULMONARY DISEASE, UNSPECIFIED Status : Chronic Priority: High Current Visit: Yes (5) Femur fracture, right SNOMED Code(s): 34247063 Code(s): S72.91XA - UNSP FRACTURE OF RIGHT FEMUR, INIT FOR CLOS FX Status: Chronic Priority: High Current Visit: Yes Qualifiers: Encounter type: subsequent encounter Annotation/Comment:: Repaired and in swing bed for pain management and PT/OT post op. (6) Tobacco abuse SNOMED Code(s): 850312091, 790039544 Code(s): Z72.0 - TOBACCO USE Status: Chronic Priority: Low Current Visit: Yes Onset Date: 02/02/16 - Problem List Review Problem List Initiated/Reviewed/Updated: Yes - My Orders Last 24 Hours: My Active Orders 10/20/16 16:19 BASIC METABOLIC PANEL,BMP [CHEM] Routine CBC WITH AUTO DIFF [HEME] Routine CULTURE URINE [RM] Routine 10/20/16 20:00 Insulin Detemir [Levemir] 15 unit SUBCUT Q12HR - Plan Plan:: Patient to continue with PT/OT. We will monitor pain management and adjust as needed. DM management and monitoring as well due to recent elevations of glucose. Monitoring urination likely due to excessive fluid intake and poorly controlled DM. We will slowly titrate levemir.
[2016-10-20] MEDS: Desvenlafaxine 50 MG Tab.ER PO SCH (19:56)
[2016-10-20] MEDS: Melatonin 3 MG Tab PO SCH (19:58)
[2016-10-20] MEDS: Insulin Detemir 100 Units/ML 3 ML Pen SUBCUT SCH ×2 (20:00→20:05)
[2016-10-21] MEDS: Acetaminophen/HYDROcodone 325-10 MG Tab PO PRN (00:30)
[2016-10-21] MEDS: diphenhydrAMINE 25 MG Cap PO PRN ×2 (00:31→20:47)
[2016-10-21] MEDS: Enoxaparin 40 MG/0.4 ML Syringe SUBCUT SCH (07:10)
[2016-10-21] MEDS: Furosemide 40 MG Tab PO SCH (07:11)
[2016-10-21] MEDS: Diltiazem 240 MG Cap.CD PO SCH (07:11)
[2016-10-21] MEDS: Metolazone 5 MG Tab PO SCH (07:15)
[2016-10-21] MEDS: Omeprazole 20 MG Cap.CR PO SCH (07:15)
[2016-10-21] MEDS: traMADol 50 MG Tab PO SCH ×4 (07:15→19:59)
[2016-10-21] MEDS: Ferrous Sulfate 325 MG Tab PO SCH (07:15)
[2016-10-21] MEDS: Metoprolol Tartrate 25 MG Tab PO SCH ×2 (07:17→19:59)
[2016-10-21] MEDS: glipiZIDE 2.5 MG Tab.ER PO SCH (07:17)
[2016-10-21] MEDS: Gabapentin 300 MG Cap PO SCH ×3 (07:17→19:59)
[2016-10-21] MEDS: Acetylcysteine 20% 200 MG/ML 30 ML Nebulizer Soln SDV NEB SCH ×2 (07:18→19:58)
[2016-10-21] MEDS: Ketoconazole 2% Crm 30 GM Tube TOP SCH ×2 (07:18→20:07)
[2016-10-21] MEDS: guaiFENesin 600 MG Tab.ER PO SCH ×2 (07:18→20:07)
[2016-10-21] MEDS: Nystatin Topical Powder 15 GM Bottle TOP SCH ×3 (07:19→20:07)
[2016-10-21] MEDS: predniSONE 20 MG Tab PO SCH (07:19)
[2016-10-21] MEDS: Roflumilast 500 MCG Tab PO SCH (07:20)
[2016-10-21] MEDS: Albuterol 0.083% 2.5 MG/3 ML Neb Soln INH SCH ×4 (07:20→19:58)
[2016-10-21] MEDS: Budesonide 0.5 MG/2 ML Neb Susp INH SCH ×2 (07:20→19:58)
[2016-10-21] MEDS: Lidocaine 5% 700 MG Patch TOP SCH (07:20)
[2016-10-21] MEDS: Triamcinolone Acetonide 0.5% Oint 15 GM Tube TOP SCH ×2 (07:21→20:07)
[2016-10-21] MEDS: Insulin Detemir 100 Units/ML 3 ML Pen SUBCUT SCH ×2 (07:31→19:57)
[2016-10-21] MEDS: Insulin Aspart 100 Units/ML 3 ML Pen SUBCUT SCH ×3 (07:35→17:12)
[2016-10-21] MEDS: LORazepam 1 MG Tab PO SCH ×3 (07:58→20:05)
[2016-10-21] MEDS: Nicotine 14 MG/24 Hr Patch TRDERM SCH (12:18)
[2016-10-21] MEDS: Fluticasone Propionate Nasal Spray 16 GM Bottle NASBOTH SCH (12:18)
[2016-10-21] MEDS: Multivitamin, Childrens Tab.Chew PO SCH (12:19)
[2016-10-21] MEDS: Montelukast 10 MG Tab PO SCH (12:19)
[2016-10-21] MEDS: Cholecalciferol (Vitamin D3) 1,000 Unit Tab PO SCH (16:14)
[2016-10-21] MEDS: fentaNYL 50 MCG/HR Transdermal Patch TRDERM SCH (17:13)
[2016-10-21] MEDS: Albuterol/Ipratropium 3.0-0.5 MG/3 ML Neb Soln INH PRN (18:28)
[2016-10-21] MEDS: Melatonin 3 MG Tab PO SCH (19:59)
[2016-10-21] MEDS: Desvenlafaxine 50 MG Tab.ER PO SCH (19:59)
[2016-10-22] MEDS: Metolazone 5 MG Tab PO SCH ×2 (05:47→06:07)
[2016-10-22] MEDS: LORazepam 1 MG Tab PO SCH ×2 (06:40→08:00)
[2016-10-22] MEDS: Omeprazole 20 MG Cap.CR PO SCH (07:05)
[2016-10-22] MEDS: Albuterol 0.083% 2.5 MG/3 ML Neb Soln INH SCH (07:44)
[2016-10-22] MEDS: Budesonide 0.5 MG/2 ML Neb Susp INH SCH (07:46)
[2016-10-22] MEDS: Acetylcysteine 20% 200 MG/ML 30 ML Nebulizer Soln SDV NEB SCH (07:48)
[2016-10-22] MEDS: Fluticasone Propionate Nasal Spray 16 GM Bottle NASBOTH SCH (08:00)
[2016-10-22] MEDS: Triamcinolone Acetonide 0.5% Oint 15 GM Tube TOP SCH (08:00)
[2016-10-22] MEDS: Gabapentin 300 MG Cap PO SCH (08:00)
[2016-10-22] MEDS: Diltiazem 240 MG Cap.CD PO SCH (08:00)
[2016-10-22] MEDS: Ketoconazole 2% Crm 30 GM Tube TOP SCH (08:00)
[2016-10-22] MEDS ORDERED: Ferrous Sulfate 325 MG Tab PO SCH (08:00)
[2016-10-22] MEDS: predniSONE 20 MG Tab PO SCH (08:00)
[2016-10-22] MEDS: glipiZIDE 2.5 MG Tab.ER PO SCH (08:00)
[2016-10-22] MEDS: Furosemide 40 MG Tab PO SCH (08:00)
[2016-10-22] MEDS: Nicotine 14 MG/24 Hr Patch TRDERM SCH (08:00)
[2016-10-22] MEDS: guaiFENesin 600 MG Tab.ER PO SCH (08:00)
[2016-10-22] MEDS: Lidocaine 5% 700 MG Patch TOP SCH (08:00)
[2016-10-22] MEDS: traMADol 50 MG Tab PO SCH (08:00)
[2016-10-22] MEDS: Nystatin Topical Powder 15 GM Bottle TOP SCH (08:00)
[2016-10-22] MEDS: Roflumilast 500 MCG Tab PO SCH (08:00)
[2016-10-22] MEDS: Insulin Aspart 100 Units/ML 3 ML Pen SUBCUT SCH (08:00)
[2016-10-22] MEDS: Metoprolol Tartrate 25 MG Tab PO SCH (08:00)
[2016-10-22] MEDS ORDERED: Sodium Chloride 0.9% 10 ML Syringe FLUSH PRN (08:48)
--- NOTE | 2016-10-22 08:49 | PCM.DCSUM1 ---
Discharge Summary - Hospital Course Brief History: This is a 61yo F who has been in swing bed for the past 2 weeks for a post op femur fracture repair 4-5wks ago. Patient recently developed acute blood par rectum 250cc at 630am then 250cc at 7am then 250cc at 730 am with increasing urge to continue BM. - Discharge Data Discharge Date: 10/22/16 Discharge Disposition: DC/Tfer to Acute Hospital 02 Condition: Fair - Discharge Diagnosis/Problem(s) (1) Diabetes SNOMED Code(s): 08062779 ICD Code: E11.9 - TYPE 2 DIABETES MELLITUS WITHOUT COMPLICATIONS Status: Chronic Priority: Medium Current Visit: Yes Qualifiers: Diabetes mellitus type: type 2 (2) HTN (hypertension) SNOMED Code(s): 73305882 ICD Code: I10 - ESSENTIAL (PRIMARY) HYPERTENSION Status: Chronic Priority : Low Current Visit: Yes (3) Generalized weakness SNOMED Code(s): 59589827 ICD Code: R53.1 - WEAKNESS Status: Acute Priority: High Current Visit: Yes (4) Depression SNOMED Code(s): 88221234 ICD Code: F32.9 - MAJOR DEPRESSIVE DISORDER, SINGLE EPISODE, UNSPECIFIED Status: Chronic Priority: Low Current Visit: Yes (5) CHF, Congestive heart failure SNOMED Code(s): 85322213 ICD Code: I50.9 - HEART FAILURE, UNSPECIFIED Status: Chronic Priority: Medium Current Visit: Yes Problem Details: 08/14/2013 Continue with Lasix po and weight will do Chem 8 today. (6) COLD, Chronic obstructive lung disease SNOMED Code(s): 38303108 ICD Code: J44.9 - CHRONIC OBSTRUCTIVE PULMONARY DISEASE, UNSPECIFIED Status : Chronic Priority: High Current Visit: Yes Onset Date: Unknown Problem Details: 11/14/2014 patient was given a nebulizer on the ambulance and she doesnt seem in distress. Blood gases done via venous with ph 7.42 and pco2 67, po2 43.6 At this time will continue with normal meds as at home. (7) Chronic hypercapnic respiratory failure SNOMED Code(s): 904811798 ICD Code: J96.12 - CHRONIC RESPIRATORY FAILURE WITH HYPERCAPNIA Status: Chronic Priority: Medium Current Visit: No (8) Anxiety SNOMED Code(s): 61613277 ICD Code: F41.9 - ANXIETY DISORDER, UNSPECIFIED Status: Chronic Priority : Medium Current Visit: Yes (9) Femur fracture, right SNOMED Code(s): 26921197 ICD Code: S72.91XA - UNSP FRACTURE OF RIGHT FEMUR, INIT FOR CLOS FX Status : Resolved Priority: High Current Visit: Yes Problem Details: Repaired and in swing bed for pain management and PT/OT post op. Qualifiers: Encounter type: subsequent encounter (10) Intertriginous candidiasis SNOMED Code(s): 24070924 ICD Code: B37.2 - CANDIDIASIS OF SKIN AND NAIL Status: Chronic Priority: Medium Current Visit: Yes (11) Dermatitis SNOMED Code(s): 86059899 ICD Code: L30.9 - DERMATITIS, UNSPECIFIED Status: Chronic Priority: Medium Current Visit: Yes (12) Anemia SNOMED Code(s): 161671461 ICD Code: D64.9 - ANEMIA, UNSPECIFIED Status: Acute Priority: High Current Visit: Yes Qualifiers: Anemia type: other cause (13) Hematochezia SNOMED Code(s): 353989871 ICD Code: K92.1 - MELENA Status: Acute Priority: High Current Visit: Yes Onset Date: ~10/22/16 - Patient Summary/Data Consults: Consultations 10/11/16 16:52 Consult to Oceanology Teacher [CONS] Routine Comment: Physician Instructions: Quantity: Consult to Home Health [CONS] Routine Comment: Physician Instructions: Consult to Infection Prevention [CONS] Routine Comment: Physician Instructions: Consult to Tree Driller [CONS] Routine Comment: Physician Instructions: OT Evaluation and Treatment [CONS] Routine Please Evaluate and Treat. OT Reason for Consult: ADL's This query below is only for informational purposes and is not editable. Admission Diagnosis/Problem: "Closed fracture of femur, distal end " PT Evaluation and Treatment [CONS] Routine Please Evaluate and Treat. PT Reason for Consult: Ambulation This query below is only for informational purposes and is not editable. Admission Diagnosis/Problem: "Closed fracture of femur, distal end " - Discharge Plan Home Medications: Home Meds Montelukast Sodium [Singulair] 10 mg PO DAILY@1200 10/02/14 [History] guaiFENesin [Mucinex] 600 mg PO BID 10/02/14 [History] Insulin Glarg,Human.Rec.Analog [Lantus Solostar] 20 units SUBCUT BEDTIME pen [Rx] Omeprazole 20 mg PO ACBRK 11/04/14 [History] predniSONE 40 mg PO DAILY 11/04/14 [History] Albuterol [Proventil Neb Soln] 2.5 mg INH QID neb 05/08/15 [Rx] Albuterol [Proair HFA] 1 puff INH Q4HR PRN 06/04/15 [History] Cholecalciferol (Vitamin D3) [Vitamin D3] 1,000 units PO DAILY@1200 06/04/15 [ History] Fluticasone Propionate [Flonase] 1 spray NASBOTH DAILY 06/04/15 [History] Formoterol [Perforomist] 20 mcg NEB QID 06/04/15 [History] Furosemide [Lasix] 40 mg PO DAILY 06/04/15 [History] Gabapentin [Neurontin] 600 mg PO TID 06/04/15 [History] Desvenlafaxine [Pristiq] 50 mg PO QPM 01/03/16 [History] Metoprolol Tartrate [Lopressor] 25 mg PO BID 01/03/16 [History] fentaNYL [Fentanyl] 50 mcg TD ASDIRECTED 01/03/16 [History] traMADol [Ultram] 50 mg PO QID 01/03/16 [History] LORazepam [Ativan] 1 mg PO TID 06/22/16 [History] Melatonin 5 mg PO BEDTIME 06/22/16 [History] Multivitamins [Childrens Chewable Vitamin] 1 tab PO DAILY@1200 06/22/16 [History ] Acetylcysteine [Mucomyst 10%] 1 inh INH BID 09/18/16 [History] Roflumilast [Daliresp] 500 mcg PO DAILY 09/18/16 [History] Acetaminophen [Tylenol Extra Strength] 1,000 mg PO TID 09/27/16 [History] Albuterol/Ipratropium [DuoNeb 3.0-0.5 MG/3 ML] 1 ampule IN QID PRN 09/27/16 [ History] Enoxaparin [Lovenox] 40 mg SUBCUT DAILY 09/27/16 [History] HYDROmorphone [Dilaudid] 2 - 4 mg PO Q4H PRN 09/27/16 [History] Lidocaine 5% [Lidoderm 5%] 1 patch TOP DAILY 09/27/16 [History] Nicotine [Nicotine Patch] 1 patch TD DAILY 09/27/16 [History] Nystatin 1 applic TP TID 09/27/16 [History] Sennosides/Docusate Sodium [Senna-Docusate Sodium] 1 tab PO BID 09/27/16 [ History] Umeclidinium [place] [Incruse Ellipta] 1 puff IH DAILY 09/27/16 [History] diphenhydrAMINE [Benadryl] 25 mg PO Q4H PRN 09/27/16 [History] glipiZIDE [Glipizide ER] 2.5 mg PO DAILY 09/27/16 [History] - Discharge Summary/Plan Comment DC Time >30 min.: Yes Discharge Summary/Plan Comment: Patient will be transferred via air to [facility] under Dr. Camarillo for acute lower GI bleed. Patient has never had a colonoscopy in the past. Patient vitals stable but does have anemia from her recent femur fracture surgery and likely to decrease greatly with todays kehinde bleeding. Patient counseled and understood risks of GI bleed. Lovenox stopped for this AM. Fluids initiated and IV's started. - Patient Data Vitals - Most Recent: Last Vital Signs Temp 36.1 C 10/21/16 08:00 Pulse 150 H 10/21/16 19:59 Resp 20 10/20/16 20:00 BP 127/60 10/21/16 19:59 Pulse Ox 100 10/21/16 08:00 Weight - Most Recent: 96.332 kg I&O - Last 24 hours: Intake & Output 10/21/16 10/22/16 10/22/16 22:59 06:59 14:59 Intake Total 1320 Balance 1320 Lab Results - Last 24 hrs: Laboratory Results - last 24 hr 10/21/16 10/21/16 10/21/16 Range/Units 10:43 16:11 18:56 WBC (4.0-11.0) K/uL RBC (3.80-5.80) M/uL Hgb (11.5-16.5) g/dL Hct (37.0-47.0) % MCV (76-96) fL MCH (27.0-32.0) pg MCHC (31.0-35.0) g/dL RDW (11.0-16.0) % Plt Count (150-500) K/uL MPV (6.0-10.0) fL Neut % (Auto) (45.0-70.0) % Lymph % (Auto) (20.0-40.0) % Barber % (Auto) (3.0-10.0) % Eos % (Auto) (1.0-5.0) % Baso % (Auto) (0.0-0.5) % Neut # (Auto) (2.00-7.50) K/uL Lymph # (Auto) (1.50-4.00) K/uL Barber # (Auto) (0.20-0.80) K/uL Eos # (Auto) (0.04-0.40) K/uL Baso # (Auto) (0.02-0.10) K/uL Sodium (136-145) mmol/L Potassium (3.5-5.1) mmol/L Chloride (98-107) mmol/L Carbon Dioxide (21.0-32.0) mmol/L Anion Gap (5.0-15.0) mmol/L BUN (8-26) mg/dL Creatinine (0.55-1.02) mg/dL Est Cr Clr Drug Dosing mL/min Estimated GFR (MDRD) (>60) MLS/MIN BUN/Creatinine Ratio (6-25) Glucose (74-100) mg/dL POC Glucose 305 H 307 H 322 H (74-110) mg/dL Calcium (8.5-10.1) mg/dL 10/22/16 10/22/16 Range/Units 07:15 07:15 WBC 17.1 H (4.0-11.0) K/uL RBC 3.24 L (3.80-5.80) M/uL Hgb 9.2 L (11.5-16.5) g/dL Hct 30.6 L (37.0-47.0) % MCV 94 (76-96) fL MCH 28.4 (27.0-32.0) pg MCHC 30.1 L (31.0-35.0) g/dL RDW 16.6 H (11.0-16.0) % Plt Count 264 (150-500) K/uL MPV 9.1 (6.0-10.0) fL Neut % (Auto) 83.2 H (45.0-70.0) % Lymph % (Auto) 6.5 L (20.0-40.0) % Barber % (Auto) 9.9 (3.0-10.0) % Eos % (Auto) 0.0 L (1.0-5.0) % Baso % (Auto) 0.4 (0.0-0.5) % Neut # (Auto) 14.19 H (2.00-7.50) K/uL Lymph # (Auto) 1.11 L (1.50-4.00) K/uL Barber # (Auto) 1.69 H (0.20-0.80) K/uL Eos # (Auto) 0.00 L (0.04-0.40) K/uL Baso # (Auto) 0.07 (0.02-0.10) K/uL Sodium 140 (136-145) mmol/L Potassium 4.9 (3.5-5.1) mmol/L Chloride 95 L (98-107) mmol/L Carbon Dioxide 41.2 H (21.0-32.0) mmol/L Anion Gap 8.7 (5.0-15.0) mmol/L BUN 44 H (8-26) mg/dL Creatinine 1.19 H (0.55-1.02) mg/dL Est Cr Clr Drug Dosing 39.76 mL/min Estimated GFR (MDRD) 46 L (>60) MLS/MIN BUN/Creatinine Ratio 37.0 H (6-25) Glucose 114 H D (74-100) mg/dL POC Glucose (74-110) mg/dL Calcium 8.0 L (8.5-10.1) mg/dL Med Orders - Current: Current Medications Acetaminophen (Tylenol) 650 mg PO Q6H PRN PRN Reason: MILD PAIN Last Admin: 10/12/16 21:11 Dose: 650 mg Acetaminophen/Hydrocodone Bitart (Onida 325-10 Mg) 2 tab PO Q4H PRN PRN Reason: pain Last Admin: 10/21/16 00:30 Dose: 2 tab Acetylcysteine (Mucomyst 20%) 200 mg NEB BID MATTHEW Last Admin: 10/22/16 07:48 Dose: 200 mg Albuterol (Proventil Neb Soln) 2.5 mg INH QID [facility] Last Admin: 10/22/16 07:44 Dose: 2.5 mg Albuterol (Ventolin Hfa) 0 gm INH Q4H PRN PRN Reason: Dyspnea Albuterol/Ipratropium (Duoneb 3.0-0.5 Mg/3 Ml) 3 ml INH QID PRN PRN Reason: Shortness of Breath Last Admin: 10/21/16 18:28 Dose: 3 ml Budesonide (Pulmicort) 0.5 mg INH BID [facility] Last Admin: 10/22/16 07:46 Dose: 0.5 mg Cholecalciferol (Vitamin D3) 1,000 units PO DAILY@1200 [facility] Last Admin: 10/21/16 16:14 Dose: Not Given Desvenlafaxine Succinate (Pristiq) 50 mg PO QPM [facility] Last Admin: 10/21/16 19:59 Dose: 50 mg Diltiazem HCl (Cardizem Cd) 240 mg PO DAILY [facility] Last Admin: 10/21/16 07:11 Dose: 240 mg Diphenhydramine HCl (Benadryl) 25 mg PO Q4H PRN PRN Reason: Allergies Last Admin: 10/21/16 20:47 Dose: 25 mg Enoxaparin Sodium (Lovenox) 40 mg SUBCUT DAILY [facility] Last Admin: 10/21/16 07:10 Dose: 40 mg Fentanyl (Duragesic) 50 mcg TRDERM Q72H [facility] Last Admin: 10/21/16 17:13 Dose: 50 mcg Ferrous Sulfate (Ferrous Sulfate) 325 mg PO DAILY@0800 [facility] Fluticasone Propionate (Flonase) 0 gm NASBOTH DAILY [facility] Last Admin: 10/21/16 12:18 Dose: 1 spray Formoterol Fumarate (Perforomist) 20 mcg NEB BID [facility] Last Admin: 10/22/16 07:48 Dose: 20 mcg Furosemide (Lasix) 40 mg PO DAILY [facility] Last Admin: 10/21/16 07:11 Dose: 40 mg Gabapentin (Neurontin) 600 mg PO TID [facility] Last Admin: 10/21/16 19:59 Dose: 600 mg Glipizide (Glucotrol Xl) 2.5 mg PO DAILY [facility] Last Admin: 10/21/16 07:17 Dose: 2.5 mg Guaifenesin (Mucinex) 600 mg PO BID [facility] Last Admin: 10/21/16 20:07 Dose: 600 mg Insulin Aspart (Novolog) 0 unit SUBCUT TIDMEALS [facility] PRN Reason: Protocol Last Admin: 10/21/16 17:12 Dose: 14 units Insulin Detemir (Levemir) 20 unit SUBCUT Q12HR [facility] Last Admin: 10/21/16 19:57 Dose: 20 units Ketoconazole (Nizoral 2% Crm) 0 - 1 gm TOP BID [facility] Last Admin: 10/21/16 20:07 Dose: Not Given Lidocaine (Lidoderm 5%) 700 mg TOP DAILY [facility] Last Admin: 10/21/16 07:20 Dose: 700 mg Lorazepam (Ativan) 1 mg PO TID [facility] Last Admin: 10/22/16 06:40 Dose: 1 mg Melatonin (Melatonin) 3 mg PO BEDTIME [facility] Last Admin: 10/21/16 19:59 Dose: 3 mg Metolazone (Zaroxolyn) 5 mg PO DAILY@0700 [facility] Last Admin: 10/22/16 06:07 Dose: Not Given Metoprolol Tartrate (Lopressor) 25 mg PO BID [facility] Last Admin: 10/21/16 19:59 Dose: 25 mg Miscellaneous Information (Remove Patch) 1 ea TRDERM Q72H [facility] Last Admin: 10/21/16 17:10 Dose: 1 ea Montelukast Sodium (Singulair) 10 mg PO DAILY@1200 [facility] Last Admin: 10/21/16 12:19 Dose: 10 mg Multivitamins/Minerals/Vitamin C (Childrens Chewable Vitamin) 1 tab PO DAILY@ 1200 [facility] Last Admin: 10/21/16 12:19 Dose: 1 tab Nicotine (Habitrol) 14 mg TRDERM Q24H [facility] Last Admin: 10/21/16 12:18 Dose: 14 mg (Umeclidinium [place] [Incruse Ellipta] 1 Puff) 1 puff IH DAILY [facility] Last Admin: 10/22/16 07:49 Dose: 1 puff Nystatin (Nystop) 0 - 1 gm TOP TID [facility] Last Admin: 10/21/16 20:07 Dose: Not Given Omeprazole (Omeprazole) 20 mg PO ACBRK [facility] Last Admin: 10/22/16 07:05 Dose: Not Given Ondansetron HCl (Zofran Odt) 4 mg PO Q6H PRN PRN Reason: NAUSEA/VOMITING Last Admin: 10/20/16 12:06 Dose: 4 mg Prednisone (Prednisone) 40 mg PO DAILY [facility] Last Admin: 10/21/16 07:19 Dose: 40 mg Roflumilast (Daliresp) 500 mcg PO DAILY [facility] Last Admin: 10/21/16 07:20 Dose: 500 mcg Senna/Docusate Sodium (Senna Plus) 1 tab PO BID [facility] Last Admin: 10/21/16 20:07 Dose: Not Given Tramadol HCl (Ultram) 50 mg PO QID [facility] Last Admin: 10/21/16 19:59 Dose: 50 mg Triamcinolone Acetonide (Triamcinolone Acetonide 0.5% Oint) 0 - 1 gm TOP BID [facility] Last Admin: 10/21/16 20:07 Dose: Not Given Discontinued Medications Acetaminophen (Tylenol Extra Strength) 1,000 mg PO TID [facility] Last Admin: 10/12/16 07:55 Dose: 1,000 mg Acetylcysteine (Mucomyst 20%) 800 mg INH BID [facility] Last Admin: 10/11/16 21:53 Dose: 200 mg Albuterol (Ventolin Hfa) 0 gm INH Q4HR PRN PRN Reason: Dyspnea Desvenlafaxine Succinate (Pristiq) 50 mg PO ONETIME ONE Stop: 10/11/16 21:25 Last Admin: 10/11/16 21:39 Dose: 50 mg Diltiazem HCl (Cardizem Cd) Confirm Administered Dose 240 mg .ROUTE .STK-MED ONE Stop: 10/12/16 12:56 Last Admin: 10/12/16 13:12 Dose: Not Given Diltiazem HCl (Cardizem Cd) 120 mg PO ONETIME ONE Stop: 10/16/16 08:53 Last Admin: 10/16/16 09:08 Dose: 120 mg Diltiazem HCl (Cardizem Cd) Confirm Administered Dose 120 mg .ROUTE .STK-MED ONE Stop: 10/16/16 09:00 Last Admin: 10/16/16 09:09 Dose: Not Given Fentanyl (Duragesic) 50 mcg TRDERM Q72H [facility] Ferrous Sulfate (Ferrous Sulfate) 325 mg PO ACBREAKFAST [facility] Last Admin: 10/21/16 07:15 Dose: 325 mg Formoterol Fumarate (Perforomist) 20 mcg NEB QID [facility] Last Admin: 10/12/16 08:42 Dose: 20 mcg Insulin Detemir (Levemir) 20 unit SUBCUT BEDTIME [facility] Last Admin: 10/11/16 21:46 Dose: 20 unit Insulin Detemir (Levemir) 30 unit SUBCUT BEDTIME [facility] Last Admin: 10/20/16 20:00 Dose: 15 units Insulin Detemir (Levemir) 15 unit SUBCUT Q12HR [facility] Last Admin: 10/21/16 07:31 Dose: 15 unit Insulin Glargine (Lantus Solostar) 20 units SUBCUT BEDTIME [facility] Last Admin: 10/11/16 21:40 Dose: Not Given Nicotine (Habitrol) 21 mg TRDERM Q24H [facility] Last Admin: 10/17/16 10:39 Dose: 21 mg Nystatin (Nystop) 0 gm TOP TID [facility] Last Admin: 10/12/16 08:27 Dose: Not Given Tuberculin PPD (Aplisol) 5 unit IDERM ONETIME ONE Stop: 10/11/16 16:53 Last Admin: 10/11/16 18:13 Dose: Not Given *Q Meaningful Use (DIS) - VTE *Q VTE Criteria *Q: - Stroke *Q Stroke Criteria *Q: - AMI *Q AMI Criteria *Q:
[2016-10-22] MEDS ORDERED: Sodium Chloride 0.9% 1,000 ML IV SCH (09:15)
[2016-10-22 11:14] VITALS: BP 146/87
[2016-10-22] MEDS: Insulin Detemir 100 Units/ML 3 ML Pen SUBCUT SCH (11:15)
== END 2016-10-22 09:50 | DRG 948 ==
LOC: UNDOADMIN 14:18 → LB.MS 14:18
PROVIDERS: ADMIT Family Medicine; ATTEND Family Medicine
PROC: 3E0U3GC Introduction of Other Therapeutic Substance into Joints, Percutaneous Approach (ICD-10-PCS; principal; 2016-10-14)
PROC: 6A4Z0ZZ Hypothermia, Single (ICD-10-PCS; principal; 2016-10-14)
DX: R53.1 Weakness (principal); K62.5 Hemorrhage of anus and rectum; J96.12 Chronic respiratory failure with hypercapnia; M25.511 Pain in right shoulder; F17.210 Nicotine dependence, cigarettes, uncomplicated; J44.9 Chronic obstructive pulmonary disease, unspecified; E66.01 Morbid (severe) obesity due to excess calories; I25.10 Atherosclerotic heart disease of native coronary artery without angina pectoris; I50.9 Heart failure, unspecified; D64.9 Anemia, unspecified; E11.9 Type 2 diabetes mellitus without complications; I11.0 Hypertensive heart disease with heart failure; H91.90 Unspecified hearing loss, unspecified ear; H54.7 Unspecified visual loss; K21.9 Gastro-esophageal reflux disease without esophagitis; F32.9 Major depressive disorder, single episode, unspecified; F41.9 Anxiety disorder, unspecified; M54.9 Dorsalgia, unspecified; G89.29 Other chronic pain; M19.90 Unspecified osteoarthritis, unspecified site; B37.2 Candidiasis of skin and nail; L30.9 Dermatitis, unspecified; B07.9 Viral wart, unspecified; Z79.4 Long term (current) use of insulin; Z79.52 Long term (current) use of systemic steroids; Z88.0 Allergy status to penicillin; Z91.013 Allergy to seafood; Z88.2 Allergy status to sulfonamides; Z88.8 Allergy status to other drugs, medicaments and biological substances; S72.401D Unspecified fracture of lower end of right femur, subsequent encounter for closed fracture with routine healing
CPT/HCPCS: 36415; 73020-RT; 77080; 80048; 81001; 82962; 85025; 87086; 87088; 87186; 97110-GP; 97116-GP; 97140-GO; 97530-GO; 97530-GP; A9270-GY; J1650; J7040; J7050; J7620

== ENCOUNTER 2016-11-01 09:44 | Inpatient (IN) | payer OTHER ==
[2016-11-01] MEDS ORDERED: ALBUTEROL INH PRN (14:47)
[2016-11-01] MEDS ORDERED: metroNIDAZOLE 500 MG Tab PO SCH (17:30)
[2016-11-01] MEDS: GUAIFENESIN 600 MG PO SCH (17:51)
[2016-11-01] MEDS: ALBUTEROL INH SCH ×2 (17:52→21:26)
[2016-11-01] MEDS ORDERED: INSULIN GLARGINE HUMAN REC ANALOG 100 UNIT/ML SUBCUT SCH (20:00)
[2016-11-01] MEDS ORDERED: Gabapentin 300 MG Cap PO SCH (20:00)
[2016-11-01] MEDS ORDERED: Montelukast 10 MG Tab ** OWN MED PO SCH (20:00)
[2016-11-01] MEDS ORDERED: Melatonin 3 MG Tab PO SCH (20:00)
[2016-11-01] MEDS: METRONIDAZOLE 500 MG PO SCH (21:07)
[2016-11-01] MEDS: CIPROFLOXACIN 500 MG PO SCH (21:08)
[2016-11-01] MEDS: Metoprolol Tartrate 25 MG Tab ** OWN MED PO SCH (21:09)
[2016-11-01] MEDS: Gabapentin 600 MG Tab PO SCH (21:13)
[2016-11-01] MEDS: INSULIN ASPART 100 UNIT/ML SUBCUT SCH (21:16)
[2016-11-01] MEDS: LORazepam 0.5 MG Tab ** OWN MED PO PRN (21:24)
[2016-11-01] MEDS: traMADol 50 MG Tab ** OWN MED PO PRN (21:28)
[2016-11-01] MEDS: DESVENLAFAXINE 50 MG PO SCH (21:37)
[2016-11-01] MEDS: Budesonide 0.5 MG/2 ML Neb Susp INH SCH (23:02)
[2016-11-02] MEDS: traMADol 50 MG Tab ** OWN MED PO PRN ×2 (01:51→13:14)
[2016-11-02] MEDS: GUAIFENESIN 600 MG PO SCH ×2 (06:00→15:34)
[2016-11-02] MEDS ORDERED: Albuterol/Ipratropium 3.0-0.5 MG/3 ML Neb Soln NEB ONE (06:28)
[2016-11-02] MEDS ORDERED: OMEPRAZOLE 20 MG PO SCH (07:00)
[2016-11-02] MEDS ORDERED: Albuterol/Ipratropium 3.0-0.5 MG/3 ML Neb Soln INH ONE (07:00)
--- NOTE | 2016-11-02 07:01 | HP ---
CHIEF COMPLAINT: The patient actually feels quite well, denies any specific complaint. PAST MEDICAL HISTORY: 1. Lower GI bleed. 2. Acute blood loss anemia. 3. Diabetes mellitus. 4. Chronic pain syndrome. 5. Chronic hypoxemic hypercapnic respiratory failure. 6. Tracheostomy. 7. Paroxysmal atrial fibrillation. 8. Coronary artery disease. 9. Hypertension. 10.Diverticulitis. 11.Right femoral fracture, status post surgery. HISTORY OF PRESENT ILLNESS: A 61-year-old female with the above past medical history, who was transferred from this hospital 10/22 after bright red blood per rectum. The patient was seen at [facility] and underwent a colonoscopy which revealed diverticulitis and also nondescript areas of mild colitis. She did have one polyp noted in the colon. Her Lovenox was held. She was did receive 1 unit of packed red blood cells, but her hemoglobin remained stable after this. It was felt that she had diverticular bleed. She was treated also for diverticulitis, and she has 2 days left of her oral antibiotics. Her respiratory status remained stable while there at the hospital, they did wean her off all of her narcotics, and so she is just taking tramadol currently. They did not do any physical therapy on her right hip after surgery, and she is toe-touching and independently transfers. She is going to see the orthopedic surgeon next week. Otherwise, the patient has no other complaints. CURRENT MEDICATIONS: Albuterol neb q.6 hours p.r.n., albuterol inhaler 2 puffs q.6 hours p.r.n., budesonide neb b.i.d., Cipro 500 mg b.i.d. taken through 11/02 and then discontinue, Lanoxin 0.125 mg daily, Flonase 2 sprays each nostril daily, Formoterol neb b.i.d., Lasix 40 mg daily, Neurontin 600 mg t.i.d., guaifenesin 600 mg b.i.d., 5 L of O2 through her trach continuously, Lantus 20 units daily, lisinopril 2.5 mg daily, lorazepam 0.5 mg q.8 hours p.r.n., melatonin 5 mg nightly, metoprolol 25 mg b.i.d., metronidazole 500 mg t.i.d. through 11/02 and then discontinue, Singulair 10 mg daily, multivitamin 1 tablet daily, omeprazole 20 mg daily, prednisone 10 mg daily, Pristiq 50 mg daily, Roflumilast 500 mcg daily, Spiriva 1 puff daily, tramadol 50 mg q.6 hours p.r.n., and vitamin D3, 1000 units daily. FAMILY HISTORY: Really noncontributory. SOCIAL HISTORY: Also not reviewed and noncontributory. REVIEW OF SYSTEMS: A 12-point review of systems is negative other than above. PHYSICAL EXAMINATION: GENERAL: A pleasant female sitting up in a chair, very happy and smiling. Talking in full sentences. No evidence of any tachypnea. HEENT: Negative. There is no adenopathy or thyromegaly. CHEST: Clear although decreased breath sounds bilaterally. CARDIAC: Reveals regular rate and rhythm. No gallop or rub. No pedal edema. ABDOMEN: Benign. : Deferred. NEUROLOGIC: Grossly nonfocal. IMPRESSION: 1. Gastrointestinal bleed secondary to diverticulitis and diverticular bleed. 2. Chronic hypoxemic hypercapnic respiratory failure. 3. Diabetes mellitus. 4. Paroxysmal atrial fibrillation. 5. Right hip fracture, status post surgery. 6. Acute blood loss anemia. 7. Diverticulitis. PLAN: The patient will be admitted to Respite Care here since she is not able to care for herself at home due to her toe-touching on her right leg. She will see the orthopedic surgeon next week. We will ask Physical Therapy to see her. She will be done with her antibiotics tomorrow for her diverticulitis. We will hold off on any anticoagulation due to her previous history of diverticular bleed. Her heart seems to be in normal sinus rhythm currently. She is not a candidate for anticoagulation currently due to her previous bleeding. Her respiratory status is much improved, and I agree with tapering all her narcotics and would not start any further narcotics for her pain. Continue with her Neurontin and tramadol as needed. Diabetes seems to be under reasonable control. ANDREAS/MODL
[2016-11-02] MEDS ORDERED: Lisinopril 2.5 MG Tab PO SCH (08:00)
[2016-11-02] MEDS ORDERED: Multivitamins with Iron/Calcium/Folic Acid/Minerals Tab PO SCH (08:00)
[2016-11-02] MEDS ORDERED: Fluticasone Propionate Nasal Spray 16 GM Bottle ** OWN MED NASBOTH SCH (08:00)
[2016-11-02] MEDS ORDERED: Cholecalciferol (Vitamin D3) 1,000 Unit Tab PO SCH (08:00)
[2016-11-02] MEDS ORDERED: Tiotropium Inhaler 18 MCG Inhalation Powder Cap Kit of 5 INH SCH (08:00)
[2016-11-02] MEDS ORDERED: Lisinopril 5 MG Tab PO SCH (08:00)
[2016-11-02] MEDS ORDERED: Roflumilast 500 MCG Tab PO SCH (08:00)
[2016-11-02] MEDS ORDERED: PREDNISONE 10 MG PO SCH (08:00)
[2016-11-02] MEDS ORDERED: DIGOXIN 125 MCG PO SCH (08:00)
[2016-11-02] MEDS ORDERED: FUROSEMIDE 40 MG PO SCH (08:00)
[2016-11-02] MEDS: METRONIDAZOLE 500 MG PO SCH ×2 (08:30→12:00)
[2016-11-02] MEDS: Metoprolol Tartrate 25 MG Tab ** OWN MED PO SCH (08:32)
[2016-11-02] MEDS: CIPROFLOXACIN 500 MG PO SCH (08:32)
[2016-11-02 08:34] VITALS: BP 154/78
[2016-11-02] MEDS: INSULIN ASPART 100 UNIT/ML SUBCUT SCH ×2 (08:38→13:09)
[2016-11-02] MEDS: Gabapentin 600 MG Tab PO SCH ×2 (08:44→13:14)
[2016-11-02] MEDS: Budesonide 0.5 MG/2 ML Neb Susp INH SCH (08:45)
[2016-11-02] MEDS: ALBUTEROL INH SCH ×3 (08:45→15:34)
[2016-11-02] MEDS: LORazepam 0.5 MG Tab ** OWN MED PO PRN (08:47)
[2016-11-02] MEDS: DESVENLAFAXINE 50 MG PO SCH (08:55)
--- NOTE | 2016-11-03 11:08 | DISCH ---
DISCHARGE DIAGNOSES: 1. Right femur fracture, status post surgery. 2. Lower GI bleed. 3. Acute blood loss anemia. 4. Diabetes mellitus. 5. Chronic pain syndrome. 6. Chronic hypoxemic hypercapnic respiratory failure. 7. Tracheostomy. 8. Paroxysmally atrial fibrillation. 9. Coronary artery disease. 10.Hypertension. 11.History of diverticulitis. PROCEDURES DONE: None. HOSPITAL COURSE: The patient was admitted for respite care 11/01/2016. The patient did well here, was up ambulating toe-touch in the room. She was seen by Physical Therapy who felt that she would be safe to return home. Occupational Therapy will see the patient. If they feel that she is safe to return home, she will be discharged from respite care at the hospital and will follow up with the orthopedic surgeon next available. She will also follow up with her primary care physician in 2 weeks. MEDICATIONS UPON DISCHARGE: Albuterol nebs q.6 hours p.r.n., albuterol inhaler 2 puffs q.6 hours p.r.n., budesonide neb b.i.d., Lanoxin 0.125 mg daily, Flonase 2 sprays each nostril daily, Formoterol neb b.i.d., Lasix 40 mg daily, Neurontin 600 mg t.i.d., guaifenesin 600 mg b.i.d., 5 L O2 through her trach continuously, Lantus 20 units daily, lisinopril 2.5 mg daily, Lorazepam 0.5 mg q.8 hours p.r.n., melatonin 5 mg at bedtime, metoprolol 25 mg b.i.d., Singulair 10 mg daily, multivitamin 1 tablet daily, omeprazole 20 mg daily, prednisone 10 mg daily, Pristiq 50 mg daily, roflumilast 500 mcg daily, Spiriva 1 puff daily, tramadol 50 mg q.6 hours p.r.n., vitamin D3 1000 units daily. The patient is ambulatory with a walker with toe-touch. She will be discharged to home with followup with Orthopedic Surgery next available and followup primary care physician in 2 weeks. MIGUEL /[id number]
== END 2016-11-02 16:50 | disposition home or self-care (01) | DRG 560 ==
LOC: LB.MS 14:35 → UNDOADMIN 14:35 → LB.MS 16:01
PROVIDERS: ADMIT Internal Medicine; ATTEND Internal Medicine
DX: S72.91XD Unspecified fracture of right femur, subsequent encounter for closed fracture with routine healing (principal); K92.2 Gastrointestinal hemorrhage, unspecified; D62 Acute posthemorrhagic anemia; J96.11 Chronic respiratory failure with hypoxia; J96.12 Chronic respiratory failure with hypercapnia; Z75.5 Holiday relief care; Z98.890 Other specified postprocedural states; G89.4 Chronic pain syndrome; E11.9 Type 2 diabetes mellitus without complications; I48.0 Paroxysmal atrial fibrillation; I25.10 Atherosclerotic heart disease of native coronary artery without angina pectoris; I10 Essential (primary) hypertension; Z88.0 Allergy status to penicillin; Z91.013 Allergy to seafood; Z88.2 Allergy status to sulfonamides
CPT/HCPCS: 82962; A9270-GY; J7620

== ENCOUNTER 2017-03-28 15:03 | Inpatient (IN) | payer MEDICARE, MEDICAID ==
[2017-03-28] MEDS ORDERED: Naloxone 2 MG/2 ML Syringe IM ONE (15:56)
[2017-03-28] MEDS ORDERED: Flumazenil 0.1 MG/ML 5 ML MDV IVPUSH PRN ×2 (16:04→16:05)
[2017-03-28] MEDS ORDERED: Naloxone 2 MG/2 ML Syringe ONE ×2 (16:15)
[2017-03-28] MEDS ORDERED: Insulin Aspart 100 Units/ML 3 ML Pen ONE (16:15)
[2017-03-28] MEDS ORDERED: Flumazenil 0.1 MG/ML 5 ML MDV ONE ×3 (16:15)
[2017-03-28] MEDS ORDERED: Sodium Chloride 0.9% 10 ML Syringe FLUSH PRN (16:37)
--- NOTE | 2017-03-28 16:59 | EDM.PDOC ---
ED HPI GENERAL MEDICAL PROBLEM - General Chief Complaint: General Stated Complaint: unconscious Time Seen by Provider: 03/28/17 16:00 Source of Information: Reports: Patient History Limitations: Reports: No Limitations - History of Present Illness INITIAL COMMENTS - FREE TEXT/NARRATIVE: Pt is a 61 year female with end stage O2 dependent COPD with Tracheotomy to prevent space ventilation.According to family members, pt has been unresponsive for about 3 hrs now. She was breathing , but was not arousable. Family called EMT . When the EMT was at the scene, pt was unresponsive to verbal commands and pain. Pt was given one dose of Narcan, as she is on fantanyl patch and tramadol for her chronic pain. There was no improvement in her consciousness, was brought into emergency room. Pt is unresponsive to pain and verbal command. Her Pulse is in 80s and her Bp is 138/74mmhg. Her rhythm on cardiac monitoring is NSR. breathing on her own around `12-14 breaths. Pt did receive on more dose of narcan. Also she has been on ativan, According to daughter , patient has been taking it 4 to 5 times daily. - Related Data Allergies Allergy/AdvReac Type Severity Reaction Status Date / Time Penicillins Allergy Unknown Edema Verified 11/01/16 13:04 shellfish derived Allergy Unknown Anaphylactic Verified 11/01/16 13:04 Shock Sulfa (Sulfonamide Allergy Unknown Edema Verified 11/01/16 13:04 Antibiotics) clonidine AdvReac Intermediate Lethargy Verified 11/01/16 13:04 klonopin AdvReac Intermediate Lethargy Uncoded 11/01/16 13:04 Home Meds: Home Meds Montelukast Sodium [Singulair] 10 mg PO DAILY@1200 10/02/14 [History] guaiFENesin [Mucinex] 600 mg PO BID 10/02/14 [History] Insulin Glarg,Human.Rec.Analog [Lantus Solostar] 20 units SUBCUT BEDTIME pen [Rx] Omeprazole 20 mg PO ACBRK 11/04/14 [History] predniSONE 10 mg PO DAILY 11/04/14 [History] Albuterol [Proventil Neb Soln] 2.5 mg INH QID neb 05/08/15 [Rx] Albuterol [Proair HFA] 1 puff INH Q4HR PRN 06/04/15 [History] Cholecalciferol (Vitamin D3) [Vitamin D3] 1,000 units PO DAILY@1200 06/04/15 [ History] Fluticasone Propionate [Flonase] 1 spray NASBOTH DAILY 06/04/15 [History] Formoterol [Perforomist] 20 mcg NEB QID 06/04/15 [History] Furosemide [Lasix] 40 mg PO DAILY 06/04/15 [History] Gabapentin [Neurontin] 600 mg PO TID 06/04/15 [History] Desvenlafaxine [Pristiq] 50 mg PO QPM 01/03/16 [History] Metoprolol Tartrate [Lopressor] 25 mg PO BID 01/03/16 [History] traMADol [Ultram] 50 mg PO QID 01/03/16 [History] LORazepam [Ativan] 1 mg PO TID 06/22/16 [History] Melatonin 5 mg PO BEDTIME 06/22/16 [History] Multivitamins [Childrens Chewable Vitamin] 1 tab PO DAILY@1200 06/22/16 [History ] Roflumilast [Daliresp] 500 mcg PO DAILY 09/18/16 [History] Acetaminophen [Tylenol Extra Strength] 1,000 mg PO TID 09/27/16 [History] Lidocaine 5% [Lidoderm 5%] 1 patch TOP DAILY 09/27/16 [History] Sennosides/Docusate Sodium [Senna-Docusate Sodium] 1 tab PO BID 09/27/16 [ History] Umeclidinium Nogal [Incruse Ellipta] 1 puff IH DAILY 09/27/16 [History] diphenhydrAMINE [Benadryl] 25 mg PO Q4H PRN 09/27/16 [History] fentaNYL [Duragesic] 50 mcg TRDERM ASDIRECTED 03/28/17 [History] Past Medical History HEENT History: Reports: Allergic Rhinitis, Hard of Hearing, Impaired Vision, Other (See Below) Other HEENT History: trach placed x 2 years ago Cardiovascular History: Reports: Heart Failure, Hypertension, Other (See Below) Other Cardiovascular History: a flutter Respiratory History: Reports: SOB Other Respiratory History: SOB excessive plegm Gastrointestinal History: Reports: Chronic Constipation, GERD Genitourinary History: Reports: Chronic Renal Insuffiency, UTI, Recurrent Other Genitourinary History: no uti recently [employer] History: Reports: Musculoskeletal History: Reports: Arthritis, Back Pain, Chronic, Neck Pain, Chronic Neurological History: Reports: Migraines Psychiatric History: Reports: Anxiety, Depression Endocrine/Metabolic History: Reports: Diabetes, Type II Hematologic History: Reports: Anemia Dermatologic History: Reports: Other (See Below) Other Dermatologic History: bruises easily - Infectious Disease History Infectious Disease History: Reports: VRE - Past Surgical History HEENT Surgical History: Reports: Other (See Below) GI Surgical History: Reports: Hernia, Abdominal Social & Family History - Family History Family Medical History: Noncontributory Cardiac: Reports: Hypertension Respiratory: Reports: Asthma, COPD Psychiatric: Reports: Anxiety - Tobacco Use Smoking Status *Q: Current Every Day Smoker Years of Tobacco use: 45 Packs/Tins Daily: 1 Used Tobacco, but Quit: No Month Tobacco Last Used: Aug Second Hand Smoke Exposure: Yes - Caffeine Use Caffeine Use: Reports: Coffee, Soda, Tea - Alcohol Use Days Per Week of Alcohol Use: 0 - Recreational Drug Use Recreational Drug Use: No Drug Use in Last 12 Months: No - Living Situation & Occupation Living situation: Reports: Single, with Significant Other Occupation: Disabled ED ROS GENERAL - Review of Systems Review Of Systems: Unable To Obtain (as patient is unresponsive) ED EXAM, GENERAL - Physical Exam Exam: See Below Exam Limited By: No Limitations General Appearance: Alert, WD/WN, No Apparent Distress Eye Exam: Bilateral Eye: EOMI, PERRL Ears: Normal External Exam, Normal Canal, Hearing Grossly Normal, Normal TMs Nose: Normal Inspection, Normal Mucosa, No Blood Throat/Mouth: Normal Inspection, Normal Lips, Normal Teeth, Normal Gums, Normal Oropharynx, Normal Voice, No Airway Compromise Head: Atraumatic, Normocephalic Neck: Normal Inspection, Supple, Non-Tender, Full Range of Motion Respiratory/Chest: No Respiratory Distress, Normal Breath Sounds, No Accessory Muscle Use, Decreased Breath Sounds (All over lung otto.), Rhonchi ( scatterred and coarse crackles from tracheobronchial secretions), Wheezing Cardiovascular: Normal Peripheral Pulses, Regular Rate, Rhythm, No Edema, No Gallop, No JVD, No Murmur, No Rub GI/Abdominal: Normal Bowel Sounds, Soft, Non-Tender Extremities: Normal Inspection, Normal Range of Motion, Non-Tender, Normal Capillary Refill, No Pedal Edema Course - Vital Signs Text/Narrative:: Pt is unresponsive to pain or verbal command. Patient's fentanyl patch was removed. She did receive narcan one dose, still not resposive. Her vitals are stable. After good suctioning her SPO2 did improve to mid 90s. Daughter dose claims that she has been taking her ativan 4-5 times daily.She some times takes an extra dose when she feels anxious. Apparently this could be from drug automatism asso with benzo causing this over dose. She did need 3 doses of IV flumazenil before she was starting to move and respond to verbal command. Pt basically opens her eyes to her name calling. Also on workup. Her chest xray appears normal, no acute changes. CBC shows leucocytoiss, pt always has elevated white count probably steroid induced. SHe does not have any acute chest findings on xray. CMP shows potassium of 6.7, with Blood sugars of 327, Her creat is up from 1.19 in September 2016 to 3.21 and also her BUN is at 52. She has gone into acute renal failure which could be the cause of her drug accumulation causing the overdose effect. For now will hold off on her fentanyl, tramadol, ativan until she is awake and alert.Will give her 4mg of Novolog s/c. which should help with decreasing her potassium, also will start on on IV fluids NS at 125cc/hr. I have not bolus considering her COPD to prevent fluid overload. Pt is clinically stable, will admit to IMCU, keep her on cardiac monitoring. Repeat BMP at 10PM. - Orders/Labs/Meds Orders: Active Orders 24 hr Category Date Time Status Patient Status [ADT] Routine ADT 03/28/17 16:37 Ordered Bedrest Bathroom Privileges [RC] ASDIRECTED Care 03/28/17 16:37 Ordered Cardiac Monitoring [RC] CONTINUOUS Care 03/28/17 16:40 Ordered Intake and Output [RC] QSHIFT Care 03/28/17 16:40 Ordered Oxygen Therapy [RC] PRN Care 03/28/17 16:37 Ordered VTE/DVT Education [RC] Per Unit Routine Care 03/28/17 16:37 Ordered Vital Signs [RC] Q4H Care 03/28/17 16:37 Ordered PT Evaluation and Treatment [CONS] Routine Cons 03/28/17 16:37 Ordered Nothing per Oral Now Diet [DIET] Diet 03/28/17 Dinner Ordered Chest 1V Frontal [CR] Stat Exams 03/28/17 15:58 Ordered ABG [BLOOD GAS ARTERIAL] [BG] Stat Lab 03/28/17 15:56 Ordered Sodium Chloride 0.9% @ 125 MLS/HR (1000ml) Med 03/28/17 16:45 Ordered Sodium Chloride 0.9% [Normal Saline] 1,000 ml IV ASDIRECTED Sodium Chloride 0.9% [Saline Flush] Med 03/28/17 16:37 Ordered 10 ml FLUSH ASDIRECTED PRN Peripheral IV Insertion Adult [OM.PC] Routine Oth 03/28/17 16:37 Ordered Resuscitation Status Routine Resus Stat 03/28/17 16:37 Ordered Labs: Laboratory Tests 03/28/17 03/28/17 Range/Units 16:00 16:00 WBC 19.2 H (4.0-11.0) K/uL RBC 4.33 (3.80-5.80) M/uL Hgb 12.5 D (11.5-16.5) g/dL Hct 42.2 D (37.0-47.0) % MCV 98 H (76-96) fL MCH 28.9 (27.0-32.0) pg MCHC 29.6 L (31.0-35.0) g/dL RDW 14.8 (11.0-16.0) % Plt Count 321 D (150-500) K/uL MPV 9.8 (6.0-10.0) fL Add Manual Diff Yes Neutrophils % (Manual) 74.0 H (45.0-70.0) % Band Neutrophils % 2.0 % Lymphocytes % (Manual) 7.0 L (20.0-40.0) % Monocytes % (Manual) 16.0 H (3.0-10.0) % Metamyelocytes % 1.0 % Platelet Estimate Adequate Sodium 128 L (136-145) mmol/L Potassium 6.7 H* D (3.5-5.1) mmol/L Chloride 90 L (98-107) mmol/L Carbon Dioxide 42.7 H (21.0-32.0) mmol/L Anion Gap 2.0 L (5.0-15.0) mmol/L BUN 52 H* (8-26) mg/dL Creatinine 3.21 H* D (0.55-1.02) mg/dL Est Cr Clr Drug Dosing TNP Estimated GFR (MDRD) 15 L (>60) MLS/MIN BUN/Creatinine Ratio 16.2 (6-25) Glucose 327 H D (74-100) mg/dL Calcium 8.4 L (8.5-10.1) mg/dL Departure - Departure Time of Disposition: 17:00 Disposition: Admitted As Inpatient 67 Condition: Fair Clinical Impression: Hyperkalemia, Acute renal failure, COPD, Moderate chronic obstructive pulmonary disease, Benzocaine overdose of undetermined intent COPD (chronic obstructive pulmonary disease) Qualifiers: COPD type: chronic bronchitis Chronic bronchitis type: unspecified Qualified Code(s): J42 - Unspecified chronic bronchitis - Discharge Information - Problem List & Annotations (1) COLD, Chronic obstructive lung disease SNOMED Code(s): 00186725 Code(s): J44.9 - CHRONIC OBSTRUCTIVE PULMONARY DISEASE, UNSPECIFIED Status : Chronic Priority: High Onset Date: Unknown Annotation/Comment:: 2014 patient was given a nebulizer on the ambulance and she doesnt seem in distress. Blood gases done via venous with ph 7.42 and pco2 67, po2 43.6 At this time will continue with normal meds as at home. (2) Acute renal failure SNOMED Code(s): 28067957 Code(s): N17.9 - ACUTE KIDNEY FAILURE, UNSPECIFIED Status: Acute (3) Hyperkalemia SNOMED Code(s): 09773863 Code(s): E87.5 - HYPERKALEMIA Status: Acute - My Orders Last 24 Hours: My Active Orders 03/28/17 15:56 ABG [BLOOD GAS ARTERIAL] [BG] Stat 03/28/17 15:58 Chest 1V Frontal [CR] Stat 03/28/17 16:37 Patient Status [ADT] Routine Bedrest Bathroom Privileges [RC] ASDIRECTED Oxygen Therapy [RC] PRN VTE/DVT Education [RC] Per Unit Routine Vital Signs [RC] Q4H PT Evaluation and Treatment [CONS] Routine Sodium Chloride 0.9% [Saline Flush] 10 ml FLUSH ASDIRECTED PRN Peripheral IV Insertion Adult [OM.PC] Routine Resuscitation Status Routine 03/28/17 16:40 Cardiac Monitoring [RC] CONTINUOUS Intake and Output [RC] QSHIFT 03/28/17 16:45 Sodium Chloride 0.9% @ 125 MLS/HR (1000ml) Sodium Chloride 0.9% [Normal Saline] 1,000 ml IV ASDIRECTED 03/28/17 Dinner Nothing per Oral Now Diet [DIET] - Assessment/Plan Last 24 Hours: My Active Orders 03/28/17 15:56 ABG [BLOOD GAS ARTERIAL] [BG] Stat 03/28/17 15:58 Chest 1V Frontal [CR] Stat 03/28/17 16:37 Patient Status [ADT] Routine Bedrest Bathroom Privileges [RC] ASDIRECTED Oxygen Therapy [RC] PRN VTE/DVT Education [RC] Per Unit Routine Vital Signs [RC] Q4H PT Evaluation and Treatment [CONS] Routine Sodium Chloride 0.9% [Saline Flush] 10 ml FLUSH ASDIRECTED PRN Peripheral IV Insertion Adult [OM.PC] Routine Resuscitation Status Routine 03/28/17 16:40 Cardiac Monitoring [RC] CONTINUOUS Intake and Output [RC] QSHIFT 03/28/17 16:45 Sodium Chloride 0.9% @ 125 MLS/HR (1000ml) Sodium Chloride 0.9% [Normal Saline] 1,000 ml IV ASDIRECTED 03/28/17 Dinner Nothing per Oral Now Diet [DIET] Assessment:: Chronic COPD Acute renal failure Benzo overdose Hyperkalemia Plan: Pt is unresponsive to pain or verbal command. Patient's fentanyl patch was removed. She did receive narcan one dose, still not resposive. Her vitals are stable. After good suctioning her SPO2 did improve to mid 90s. Daughter dose claims that she has been taking her ativan 4-5 times daily.She some times takes an extra dose when she feels anxious. Apparently this could be from drug automatism asso with benzo causing this over dose. She did need 3 doses of IV flumazenil before she was starting to move and respond to verbal command. Pt basically opens her eyes to her name calling. Also on workup. Her chest xray appears normal, no acute changes. CBC shows leucocytoiss, pt always has elevated white count probably steroid induced. SHe does not have any acute chest findings on xray. CMP shows potassium of 6.7, with Blood sugars of 327, Her creat is up from 1.19 in September 2016 to 3.21 and also her BUN is at 52. She has gone into acute renal failure which could be the cause of her drug accumulation causing the overdose effect. For now will hold off on her fentanyl, tramadol, ativan until she is awake and alert.Will give her 4mg of Novolog s/c. which should help with decreasing her potassium, also will start on on IV fluids NS at 125cc/hr. I have not bolus considering her COPD to prevent fluid overload. Pt is clinically stable, will admit to IMCU, keep her on cardiac monitoring. Repeat BMP at 10PM.
[2017-03-28] MEDS: methylPREDNISolone Sodium Succinate 125 MG/2 ML SDV IVPUSH SCH (17:05)
[2017-03-28] MEDS: Sodium Chloride 0.9% 1,000 ML IV SCH (17:25)
[2017-03-28] MEDS ORDERED: Albuterol 8 GM Inhaler INH PRN (17:33)
[2017-03-28] MEDS ORDERED: Insulin Aspart 100 Units/ML 3 ML Pen SUBCUT ONE (17:38)
[2017-03-28] MEDS: Albuterol 0.083% 2.5 MG/3 ML Neb Soln INH SCH (20:22)
[2017-03-28] MEDS ORDERED: Arformoterol 15 MCG/2 ML Neb Soln NEB ONE (20:39)
[2017-03-28] MEDS: Insulin Glargine,Human Rec. Analog 100 Units/ML 3 ML Pen SUBCUT SCH (20:50)
[2017-03-29] MEDS: Albuterol 0.083% 2.5 MG/3 ML Neb Soln INH SCH ×5 (01:00→19:45)
[2017-03-29] MEDS: methylPREDNISolone Sodium Succinate 125 MG/2 ML SDV IVPUSH SCH ×2 (01:00→07:55)
[2017-03-29] MEDS: Sodium Chloride 0.9% 1,000 ML IV SCH ×3 (01:25→17:38)
[2017-03-29] MEDS ORDERED: Albuterol/Ipratropium 3.0-0.5 MG/3 ML Neb Soln NEB ONE (05:11)
[2017-03-29] MEDS ORDERED: Flumazenil 0.1 MG/ML 5 ML MDV IVPUSH PRN (06:31)
[2017-03-29] MEDS: Roflumilast 500 MCG Tab PO SCH (07:41)
[2017-03-29] MEDS ORDERED: methylPREDNISolone Sodium Succinate 125 MG/2 ML SDV IVPUSH SCH (07:57)
[2017-03-29] MEDS: Fluticasone Propionate Nasal Spray 16 GM Bottle NASBOTH SCH (08:01)
[2017-03-29] MEDS ORDERED: methylPREDNISolone Sodium Succinate 40 MG/1 ML SDV IV SCH (08:45)
[2017-03-29] MEDS: Metoprolol Tartrate 25 MG Tab PO SCH ×2 (09:09→19:45)
[2017-03-29] MEDS: Lidocaine 5% 700 MG Patch TOP SCH (09:13)
[2017-03-29] MEDS ORDERED: Heparin Sodium 5,000 Units/ML Vial ONE ×2 (09:27→19:38)
[2017-03-29] MEDS: methylPREDNISolone Sodium Succinate 40 MG/1 ML SDV IVPUSH SCH ×2 (09:33→19:45)
[2017-03-29] MEDS: Heparin Sodium 5,000 UNITS/0.5 ML Syringe SUBCUT SCH ×2 (09:34→19:43)
[2017-03-29] MEDS: Arformoterol 15 MCG/2 ML Neb Soln INH SCH ×4 (10:49→20:00)
--- NOTE | 2017-03-29 12:14 | CR ---
DATE OF SERVICE: 03/28/17 CLINICAL DATA: COPD with unresponsive AP PORTABLE CHEST: Comparison is made to a prior exam dated 10/09/16. The exam is mildly under-penetrated. The patient has taken a poor inspiration. The tracheostomy tube remains unchanged in position. The heart size is stable. There is persistent prominence of the pulmonary vasculature, however, it does appear slightly less prominent than on the prior exam. There are mild atelectatic changes in both lung bases. The lungs are otherwise clear. No pneumothorax. The remainder of the exam is unchanged from the prior. [id number] [facility]
[2017-03-29] MEDS: Non-Formulary Medication 1 Each (Umeclidinium Bromide [Incruse Ellipta] 1 PUFF) IH SCH ×2 (12:24→13:04)
[2017-03-29] MEDS: Montelukast 10 MG Tab PO SCH (12:26)
[2017-03-29] MEDS: Cholecalciferol (Vitamin D3) 1,000 Unit Tab PO SCH (12:30)
[2017-03-29] MEDS: Insulin Aspart 100 Units/ML 3 ML Pen SUBCUT SCH ×2 (12:37→17:48)
[2017-03-29] MEDS: hydrOXYzine HCl 25 MG Tab PO PRN (14:45)
[2017-03-29] MEDS: traMADol 50 MG Tab PO PRN (14:45)
[2017-03-29] MEDS ORDERED: Flumazenil 0.1 MG/ML 5 ML MDV IVPUSH ONE (16:07)
[2017-03-29] MEDS ORDERED: LORazepam 2 MG/ML MDV IVPUSH PRN (16:09)
[2017-03-29] MEDS ORDERED: LORazepam 2 MG/ML MDV ONE (16:17)
[2017-03-29] MEDS ORDERED: HYDROmorphone 2 MG/ML Syringe ONE ×2 (16:18→19:58)
[2017-03-29] MEDS: HYDROmorphone 2 MG/ML Syringe IVPUSH PRN ×2 (17:00→20:01)
[2017-03-29] MEDS: Desvenlafaxine 50 MG Tab.ER PO SCH (19:45)
[2017-03-29] MEDS ORDERED: HYDROmorphone 2 MG/ML Syringe IVPUSH ONE (19:59)
[2017-03-29] MEDS ORDERED: fentaNYL 25 MCG/HR Transdermal Patch TRDERM SCH (20:00)
[2017-03-29] MEDS: Insulin Glargine,Human Rec. Analog 100 Units/ML 3 ML Pen SUBCUT SCH (22:34)
[2017-03-29] MEDS ORDERED: Albuterol 0.083% 2.5 MG/3 ML Neb Soln ONE (23:48)
[2017-03-30] MEDS: LORazepam 0.5 MG Tab PO PRN ×3 (00:05→18:44)
[2017-03-30] MEDS ORDERED: Albuterol 0.083% 2.5 MG/3 ML Neb Soln ONE (00:37)
[2017-03-30] MEDS: Albuterol/Ipratropium 3.0-0.5 MG/3 ML Neb Soln NEB PRN ×3 (02:00→07:41)
[2017-03-30] MEDS ORDERED: Albuterol/Ipratropium 3.0-0.5 MG/3 ML Neb Soln ONE (02:12)
[2017-03-30] MEDS ORDERED: Heparin Sodium 5,000 Units/ML Vial ONE ×3 (03:56→19:48)
[2017-03-30] MEDS: Heparin Sodium 5,000 UNITS/0.5 ML Syringe SUBCUT SCH ×3 (03:57→20:37)
[2017-03-30] MEDS: methylPREDNISolone Sodium Succinate 40 MG/1 ML SDV IVPUSH SCH ×3 (03:57→19:49)
--- NOTE | 2017-03-30 06:56 | PN ---
DATE OF VISIT: 03/29/2017 SUBJECTIVE: A 61-year-old female was admitted yesterday evening with acute encephalopathy. The patient was not able to be aroused by EMT or family members at home and was brought into the emergency room. There, she was noted to be hypoxic and had acute renal failure, although other vital signs were stable. She was given Narcan without much improvement and then was given Romazicon three different doses and the patient was more alert and was able to talk. In talking with family members, she was taking her Ativan more frequently, although the patient denies this. The patient now states that she has not been drinking much fluids. Her urine output has decreased over the last week. She denies having any fevers, shaking chills, or sweats. Denies any change in her breathing. This morning, she does have some pain. She has not gotten any further fentanyl or Ultram or Neurontin since being hospitalized. She also has not gotten any Ativan. PAST MEDICAL HISTORY: 1. Remarkable for previous lower GI diverticular bleed postoperatively after femur fracture on 11/08. 2. Diabetes mellitus. 3. Chronic pain syndrome. 4. Chronic hypoxemic-hypercapnic respiratory failure. 5. Tracheostomy. 6. History of paroxysmal atrial fibrillation. 7. Coronary artery disease. 8. Hypertension. 9. Previous right femoral fracture. OBJECTIVE: GENERAL: The patient was in the MICU, lying in bed, arouses to my voice. She does recognize me from October. VITAL SIGNS: Pulse is 110, temp is 99, blood pressure 122/56, respiratory rate was 18, O2 sats are 91% on 2 L through her trach. NEUROLOGIC: The patient is alert. She is oriented to month, year, and place. She is telling me her date. Strength is normal in all extremities. Downgoing toes. Cranial nerves III through XII are intact. The patient has a trachea in place with O2 being bled into the trach. LUNGS: Revealed prolonged expiratory phase, but I cannot hear a lot of wheezing and no rales. CARDIAC: Reveals tachycardia, although regular. No gallop or rub. No pedal edema. ABDOMEN: Normoactive bowel sounds. Some mild tenderness in the epigastric area, but no rebound or guarding. She does have incisional hernia in the area of the umbilicus that is nontender and is reducible. There are no inguinal hernias. LABORATORY DATA: White count this morning is 13.8, hemoglobin 11.0, platelet count 258. Sodium 136, potassium 5.2, chloride 97, bicarb 36, BUN 51, creatinine 1.77, blood sugar 191. Urinalysis shows 10-20 red cells, 5-10 white cells, and Peraza catheter placed within 12 hours. Leukocyte esterase is negative. IMAGING: Chest x-ray: Poor inspiration. There is no infiltrate noted. There is prominence of pulmonary vasculature, but this was less so than what previous exam was. IMPRESSION: 1. Acute encephalopathy, suspect secondary to medications, most likely Ativan. 2. Acute on chronic hypoxemic-hypercapnic respiratory failure. 3. Acute renal failure, most likely prerenal. 4. Diabetes mellitus. 5. Chronic pain syndrome. 6. History of paroxysmal atrial fibrillation. 7. Chronic metabolic alkalosis secondary to above. 8. Leukocytosis, improved. PLAN: The patient clinically is improving and encephalopathy is clearing. We will continue to hold her fentanyl and may start her Ultram later on today. We will hold her Ativan until the patient shows signs of withdrawal and then would start half the dose of which she previously was on. I do not see any sign of infection, although blood cultures were ordered this morning. Her acute renal failure appears to be prerenal since with IV fluids this is improved. I had a long discussion with the patient and her daughter about the grave consequences of her respiratory disease and the use of narcotics and respiratory failure and . I told her my recommendation was to get off the fentanyl patch and use other modalities for pain control. Will also need to be very judicious with the Ativan. We will plan physical therapy and occupational therapy. Recheck lab work in a.yunier JOHNS/SVETLANA /[id number]
[2017-03-30] MEDS: Omeprazole 20 MG Cap.CR PO SCH (06:57)
[2017-03-30] MEDS: Non-Formulary Medication 1 Each (Umeclidinium Bromide [Incruse Ellipta] 1 PUFF) IH SCH (07:39)
[2017-03-30] MEDS: Fluticasone Propionate Nasal Spray 16 GM Bottle NASBOTH SCH (07:47)
[2017-03-30] MEDS: Roflumilast 500 MCG Tab PO SCH (07:47)
[2017-03-30] MEDS ORDERED: Albuterol 0.083% 2.5 MG/3 ML Neb Soln NEB PRN (07:49)
[2017-03-30] MEDS: Lidocaine 5% 700 MG Patch TOP SCH (07:49)
[2017-03-30] MEDS: Metoprolol Tartrate 25 MG Tab PO SCH ×2 (07:49→19:49)
[2017-03-30] MEDS: predniSONE 5 MG Tab PO SCH (07:53)
[2017-03-30] MEDS: Albuterol 0.083% 2.5 MG/3 ML Neb Soln INH SCH (07:54)
[2017-03-30] MEDS: traMADol 50 MG Tab PO PRN ×2 (07:57→21:18)
[2017-03-30] MEDS ORDERED: Albuterol/Ipratropium 3.0-0.5 MG/3 ML Neb Soln NEB SCH (08:00)
[2017-03-30] MEDS: Insulin Aspart 100 Units/ML 3 ML Pen SUBCUT SCH ×3 (08:22→17:01)
[2017-03-30] MEDS: Arformoterol 15 MCG/2 ML Neb Soln INH SCH ×4 (08:25→19:36)
--- NOTE | 2017-03-30 09:14 | PN ---
DATE OF VISIT: 03/30/2017 SUBJECTIVE: The patient is seen on routine rounds today. She states she is feeling much improved. She still is having some pain issues with tingling and burning in her feet. Her Neurontin has been held due to the possibility of mild toxicity. She states her breathing is improved this morning. Over yesterday, she was coughing up phlegm. She was on Mucomyst at home and will restart that here. She ate supper without difficulty, still mildly thirsty, encouraged fluid intake. Denies any bowel or abdominal pain. Bowel movement was normal yesterday. OBJECTIVE: VITAL SIGNS: Stable. She is still mildly tachycardic with AFib. Dig has been held, awaiting for dig level this morning. She is afebrile. GENERAL: The patient is alert. She is oriented to person, place, she knows the year, has difficulty with month and day. Moves all extremities. Can sit up in bed this morning without difficulty. LUNGS: Reveal decreased breath sounds bilaterally with a few end-expiratory wheezes, but otherwise no rales or rhonchi. CARDIAC: Reveals an irregularly irregular rhythm, but without gallop or rub. There is no pedal edema. ABDOMEN: Benign. IMPRESSION: 1. Acute encephalopathy secondary to medications, most likely Ativan. 2. Acute on chronic hypoxemic-hypercapnic respiratory failure. 3. Acute renal failure, prerenal. 4. Diabetes mellitus. 5. Chronic pain syndrome. 6. Atrial fibrillation. 7. Chronic metabolic alkalosis due to her respiratory acidosis, compensatory. 8. Leukocytosis, blood cultures are negative to date. PLAN: We will start Mucomyst nebs, continue with DuoNebs. I think it is imperative that we get her out of bed today to help her mobilize some of her secretions. She does have acapella at home and recommended that she bring one in since that will also help mobilize secretions. We will try capsaicin cream for her neuropathy in her legs. We did start fentanyl patch 25 mcg, which is half the dose that she was on at home. Continue with the Ultram as needed. We started her Ativan at half the dose that she was at home to prevent withdrawal. PT/OT to see today to determine whether or not the patient would be safe enough to discharge to home in the next 1 to 2 days. ANDREAS/SVETLANA /[id number]
[2017-03-30] MEDS: Digoxin 125 MCG Tab PO SCH (09:58)
[2017-03-30] MEDS: Montelukast 10 MG Tab PO SCH (12:02)
[2017-03-30] MEDS: Acetylcysteine 20% 200 MG/ML 30 ML Nebulizer Soln SDV NEB SCH ×4 (12:02→23:47)
[2017-03-30] MEDS: Cholecalciferol (Vitamin D3) 1,000 Unit Tab PO SCH (12:02)
[2017-03-30] MEDS: hydrOXYzine HCl 25 MG Tab PO PRN ×2 (12:13→17:15)
[2017-03-30] MEDS: CAPSAICIN 0.1% TOP SCH ×2 (14:54→20:38)
[2017-03-30] MEDS: Insulin Glargine,Human Rec. Analog 100 Units/ML 3 ML Pen SUBCUT SCH (20:21)
[2017-03-30] MEDS: Desvenlafaxine 50 MG Tab.ER PO SCH (20:38)
[2017-03-30] MEDS ORDERED: Nicotine 21 MG/24 Hr Patch ONE (21:05)
[2017-03-30] MEDS: Nicotine 21 MG/24 Hr Patch TRDERM SCH (21:28)
[2017-03-30] MEDS ORDERED: QUEtiapine 25 MG Tab PO ONE (21:53)
[2017-03-31] MEDS ORDERED: Heparin Sodium 5,000 Units/ML Vial ONE ×3 (03:43→20:37)
[2017-03-31] MEDS: methylPREDNISolone Sodium Succinate 40 MG/1 ML SDV IVPUSH SCH (03:44)
[2017-03-31] MEDS: Heparin Sodium 5,000 UNITS/0.5 ML Syringe SUBCUT SCH ×3 (03:44→20:43)
[2017-03-31] MEDS: LORazepam 0.5 MG Tab PO PRN ×2 (03:45→14:43)
[2017-03-31] MEDS: Acetylcysteine 20% 200 MG/ML 30 ML Nebulizer Soln SDV NEB SCH ×3 (06:21→20:41)
[2017-03-31] MEDS: Omeprazole 20 MG Cap.CR PO SCH (07:30)
[2017-03-31] MEDS: Insulin Aspart 100 Units/ML 3 ML Pen SUBCUT SCH ×5 (07:43→17:48)
[2017-03-31] MEDS ORDERED: Insulin Glargine,Human Rec. Analog 100 Units/ML 3 ML Pen SUBCUT SCH (07:47)
[2017-03-31] MEDS ORDERED: Albuterol/Ipratropium 3.0-0.5 MG/3 ML Neb Soln ONE (07:52)
[2017-03-31] MEDS: Albuterol/Ipratropium 3.0-0.5 MG/3 ML Neb Soln NEB PRN (07:56)
[2017-03-31] MEDS: Fluticasone Propionate Nasal Spray 16 GM Bottle NASBOTH SCH (08:06)
[2017-03-31] MEDS: Roflumilast 500 MCG Tab PO SCH (08:06)
[2017-03-31] MEDS: Digoxin 125 MCG Tab PO SCH (08:07)
[2017-03-31] MEDS: Metoprolol Tartrate 25 MG Tab PO SCH ×2 (08:08→20:47)
[2017-03-31] MEDS: CAPSAICIN 0.1% TOP SCH ×3 (08:18→20:48)
[2017-03-31] MEDS: predniSONE 5 MG Tab PO SCH (08:18)
[2017-03-31] MEDS: Arformoterol 15 MCG/2 ML Neb Soln INH SCH ×4 (08:18→20:43)
[2017-03-31] MEDS: Non-Formulary Medication 1 Each (Umeclidinium Bromide [Incruse Ellipta] 1 PUFF) IH SCH (08:19)
[2017-03-31] MEDS: Nicotine 21 MG/24 Hr Patch TRDERM SCH (08:22)
[2017-03-31] MEDS: QUEtiapine 25 MG Tab PO SCH (08:39)
[2017-03-31] MEDS: Lidocaine 5% 700 MG Patch TOP SCH (08:42)
--- NOTE | 2017-03-31 09:47 | PN ---
DATE OF VISIT: 03/31/2017 SUBJECTIVE: The patient had a lot of anxiety throughout the evening. The patient was given Seroquel 25 mg yesterday evening with good results in her anxiety and she was able to sleep. She did have to have an extra dose of Ativan during the night, but overall good slept well. She states she feels better this morning. States her breathing is stable. She is coughing up some colorless sputum, no blood. She states her pain is adequately controlled on the current pain med doses. Her appetite has been poor, but her blood sugars have been quite high. At home, she has a sliding scale of 1 unit per 30/150. Otherwise, denies any other complaints. OBJECTIVE: The patient is sitting up in bed, alert and oriented x3. She can hold a conversation this morning. This is the best that I have seen her mentally. There is no myoclonic jerking. Neurologic exam is grossly nonfocal. Lungs reveal wheezes bilaterally, and her last DuoNeb was yesterday. I do not hear any rales or rhonchi. Cardiac exam reveals a regular rate and rhythm at 90 without gallop or rub rather distant heart tones. No pedal edema. Abdomen, normoactive bowel sounds. Soft and nontender. LABORATORY DATA: Creatinine is pending. IMPRESSION: 1. Acute encephalopathy secondary to medications. Plan: The patient's narcotic dose have been halved. She now is on fentanyl 25 mcg every 3 days and continues on her Ultram. I told her my suggestion would be in the future is to taper her fentanyl patch to off. 2. Acute on chronic hypoxemic hypercapnic respiratory failure. Plan: The patient will need to have her DuoNeb scheduled every 6 hours with p.r.n. albuterol nebs. Continue with her Brovana and her prednisone 10 mg daily. Continue with her Mucomyst for sputum mobilization and also continue with her acapella. 3. Acute renal failure. Plan: This appears to have been prerenal due to some dehydration, probably due to high blood sugars and poor oral intake in her diuretics. Her diuretics have been held. We will await creatinine this morning. We did restart her dig yesterday. Anticipate return to normal renal function. 4. Diabetes mellitus. Plan: Blood sugars have been high. She currently is on her oral prednisone at 10 mg daily. We will increase her Lantus to 25 units daily and start 5 units of NovoLog with each meal along with her sliding scale. We will continue to follow her blood sugars. I anticipate once her blood sugars have improved her appetite will improve. 5. Chronic pain syndrome. Plan: As above, her fentanyl patch was decreased to 25 mcg and anticipate that we will hopefully be able to taper this in the future. We will continue with her Ultram as long as she does not get sedated. 6. Atrial fibrillation. Plan: Heart rate is currently controlled and she is popping in and out of atrial fibrillation and sinus rhythm. At this point in time, due to her deconditioning, I am not sure she is a good candidate for anticoagulation. If she improves her strength, would then consider Coumadin therapy. 7. Anxiety. Plan: We did decrease her Ativan dose by half, which she was on at home and long-term goal would be to taper off this. She did respond positively to Seroquel last night and so we will start 12.5 mg in the morning and 25 mg at night watching first today over sedation, especially with her narcotics. 8. Chronic metabolic alkalosis due to her respiratory acidosis compensatory. 9. Leukocytosis. Plan: The patient remains afebrile here. Blood cultures have been negative to date. Urinalysis has been negative. Chest x-ray did not show any infiltrate. We will continue to follow. 10.Disposition. Plan: We will ask social service to see the patient since I am not sure that she is strong enough to return home. We will see how PT and OT results are. We may need to consider a swing bed if she is not strong enough to return home. ANDREAS/SVETLANA /[id number]
[2017-03-31] MEDS ORDERED: Albuterol/Ipratropium 3.0-0.5 MG/3 ML Neb Soln NEB SCH (10:47)
[2017-03-31] MEDS: Montelukast 10 MG Tab PO SCH (12:03)
[2017-03-31] MEDS: Cholecalciferol (Vitamin D3) 1,000 Unit Tab PO SCH (12:04)
[2017-03-31] MEDS: Albuterol/Ipratropium 3.0-0.5 MG/3 ML Neb Soln NEB SCH ×2 (12:06→17:39)
[2017-03-31] MEDS: hydrOXYzine HCl 25 MG Tab PO PRN (16:25)
[2017-03-31] MEDS: traMADol 50 MG Tab PO PRN (17:36)
[2017-03-31] MEDS: Gabapentin 300 MG Cap PO SCH ×2 (17:38→20:29)
[2017-03-31] MEDS ORDERED: QUEtiapine 25 MG Tab PO SCH (20:00)
[2017-03-31] MEDS ORDERED: Insulin Detemir 100 Units/ML 3 ML Pen SUBCUT SCH (20:00)
[2017-03-31] MEDS: Desvenlafaxine 50 MG Tab.ER PO SCH (20:28)
[2017-03-31] MEDS ORDERED: Metoprolol Tartrate 25 MG Tab ONE (20:37)
[2017-04-01] MEDS: Acetylcysteine 20% 200 MG/ML 30 ML Nebulizer Soln SDV NEB SCH ×3 (02:18→13:23)
[2017-04-01] MEDS: Albuterol/Ipratropium 3.0-0.5 MG/3 ML Neb Soln NEB SCH ×3 (02:18→13:22)
[2017-04-01] MEDS: traMADol 50 MG Tab PO PRN (02:50)
[2017-04-01] MEDS ORDERED: Heparin Sodium 5,000 Units/ML Vial ONE ×2 (03:36→13:00)
[2017-04-01] MEDS: Heparin Sodium 5,000 UNITS/0.5 ML Syringe SUBCUT SCH ×2 (03:45→13:23)
[2017-04-01] MEDS: Fluticasone Propionate Nasal Spray 16 GM Bottle NASBOTH SCH (07:55)
[2017-04-01] MEDS: Digoxin 125 MCG Tab PO SCH (07:55)
[2017-04-01] MEDS: Lidocaine 5% 700 MG Patch TOP SCH (07:57)
[2017-04-01] MEDS: Nicotine 21 MG/24 Hr Patch TRDERM SCH (07:57)
[2017-04-01] MEDS: Metoprolol Tartrate 25 MG Tab PO SCH (07:58)
[2017-04-01] MEDS: QUEtiapine 25 MG Tab PO SCH (07:59)
[2017-04-01] MEDS: predniSONE 5 MG Tab PO SCH (07:59)
[2017-04-01] MEDS: Omeprazole 20 MG Cap.CR PO SCH (07:59)
[2017-04-01] MEDS: Gabapentin 300 MG Cap PO SCH ×2 (07:59→13:27)
[2017-04-01] MEDS: Roflumilast 500 MCG Tab PO SCH (08:00)
[2017-04-01] MEDS: CAPSAICIN 0.1% TOP SCH (08:00)
[2017-04-01] MEDS: Insulin Aspart 100 Units/ML 3 ML Pen SUBCUT SCH ×3 (08:01→12:37)
[2017-04-01] MEDS: Non-Formulary Medication 1 Each (Umeclidinium Bromide [Incruse Ellipta] 1 PUFF) IH SCH (08:02)
[2017-04-01] MEDS: Arformoterol 15 MCG/2 ML Neb Soln INH SCH ×2 (08:16→13:22)
[2017-04-01] MEDS ORDERED: Insulin Aspart 100 Units/ML 3 ML Pen SUBCUT SCH (11:00)
[2017-04-01 12:54] VITALS: BP 122/78
[2017-04-01] MEDS: Montelukast 10 MG Tab PO SCH (13:22)
[2017-04-01] MEDS: Cholecalciferol (Vitamin D3) 1,000 Unit Tab PO SCH (13:22)
[2017-04-01] MEDS ORDERED: Nystatin Topical Powder 15 GM Bottle TOP SCH (20:00)
--- NOTE | 2017-04-04 06:28 | DISCH ---
DISCHARGE DIAGNOSES: 1. Acute encephalopathy secondary to medications, most likely Ativan and Neurontin. 2. Acute on chronic hypoxemic hypercapnic respiratory failure. 3. Acute renal failure, pre renal. 4. Diabetes mellitus. 5. Chronic pain syndrome. 6. Paroxysmal atrial fibrillation. 7. Anxiety. 8. Leukocytosis. 9. Chronic compensatory metabolic alkalosis. PROCEDURES: This admission, none. HOSPITAL COURSE: The patient was admitted with acute encephalopathy, was essentially unresponsive. She did not respond to Narcan. The patient was given Flumazenil and patient did improve. The patient's narcotics, Neurontin, and Ativan were all stopped. The patient showed adequate oxygenation and vital signs were otherwise stable, and she will be monitored overnight. The following day, she started to become more alert and oriented and then had some evidence of withdrawal from Ativan and narcotics. The patient was restarted on her fentanyl patch at half the dose 25 mcg every 3 days, and her Ativan was also decreased by half to take 0.5 mg q.i.d. Her Neurontin was also held and this was restarted at half the dose of 300 mg t.i.d. With hydration, the patient's renal function returned to normal. She was restarted on her lisinopril. Blood sugars were elevated on admission, and her Lantus dose was increased by 5 units and was started on some pre meal NovoLog. With this, her blood sugars improved. The patient was seen by physical therapy and actually did well. The patient is requesting to be discharged home instead of a swing bed which I do not think she would qualify for. The patient will be discharged home with the above medication changes, otherwise, all other medications will be the same. She will follow up in 3 weeks, and at that time, I would anticipate further taper of her narcotics and Ativan. She was started on Seroquel for her anxiety which has worked well without sedation. The patient will have follow up in 3 weeks. MEDICATIONS UPON DISCHARGE: Please see med rec. The patient will be discharged home to family. She will follow up in 3 weeks. Greater than 30 minutes was spent at time of discharge, over half of which was for coordination of care. MIGUEL /[id number]
== END 2017-04-01 15:29 | disposition home or self-care (01) | DRG 91 ==
LOC: LB.ED 15:03 → LB.MS 17:00
PROVIDERS: ADMIT Family Medicine; ATTEND Internal Medicine
DX: G92 Toxic encephalopathy (principal); J96.21 Acute and chronic respiratory failure with hypoxia; J96.22 Acute and chronic respiratory failure with hypercapnia; N17.9 Acute kidney failure, unspecified; E87.3 Alkalosis; T42.4X5A Adverse effect of benzodiazepines, initial encounter; T42.6X5A Adverse effect of other antiepileptic and sedative-hypnotic drugs, initial encounter; Y92.009 Unspecified place in unspecified non-institutional (private) residence as the place of occurrence of the external cause; I12.9 Hypertensive chronic kidney disease with stage 1 through stage 4 chronic kidney disease, or unspecified chronic kidney disease; G89.4 Chronic pain syndrome; J44.9 Chronic obstructive pulmonary disease, unspecified; Z79.4 Long term (current) use of insulin; Z99.81 Dependence on supplemental oxygen; N18.9 Chronic kidney disease, unspecified; E11.22 Type 2 diabetes mellitus with diabetic chronic kidney disease; F17.210 Nicotine dependence, cigarettes, uncomplicated; E87.5 Hyperkalemia; R40.20 Unspecified coma; Z93.0 Tracheostomy status; K43.2 Incisional hernia without obstruction or gangrene; I48.0 Paroxysmal atrial fibrillation; I25.10 Atherosclerotic heart disease of native coronary artery without angina pectoris; M19.90 Unspecified osteoarthritis, unspecified site; M54.9 Dorsalgia, unspecified; Z87.440 Personal history of urinary (tract) infections; F41.9 Anxiety disorder, unspecified; F32.9 Major depressive disorder, single episode, unspecified; H54.7 Unspecified visual loss; H91.90 Unspecified hearing loss, unspecified ear; Z88.0 Allergy status to penicillin; Z91.013 Allergy to seafood; Z88.2 Allergy status to sulfonamides; Z88.8 Allergy status to other drugs, medicaments and biological substances; Z79.52 Long term (current) use of systemic steroids
CPT/HCPCS: 36415; 71010; 80048; 85025; 96374; 99285; A0425; A0429; A9270; J2310 ×2; 80076; 80162; 81001; 82962; 83525; 85027; 87040; 87086; 87088; 87186; 97110-GP; 97162-GP; 97166-GO; 97530-GP; J1170; J1644; J1644-GY; J2060; J2920; J2930; J3490; J7040; J7605; J7620

== ENCOUNTER 2017-04-05 20:29 | Emergency (ER) | payer MEDICARE, MEDICAID ==
[2017-04-05 20:47] VITALS: BP 158/72
[2017-04-05] MEDS ORDERED: Ciprofloxacin 500 MG Tab ONE (20:55)
--- NOTE | 2017-04-05 21:31 | EDM.PDOC ---
ED HPI GENERAL MEDICAL PROBLEM - General Chief Complaint: General Stated Complaint: general Time Seen by Provider: 04/05/17 20:30 Source of Information: Reports: Patient History Limitations: Reports: No Limitations - History of Present Illness INITIAL COMMENTS - FREE TEXT/NARRATIVE: Pt has end stage COPD, present to emergency room as she has been feeling cold all day. No fever or chills, just feels cold and not herself. No cough, no chest pain, tightness or shortness of breath. No dysuria or frequent urination. Appears comfortable. Onset: Today Onset Date: 04/05/17 Onset Time: 08:00 Associated Symptoms: Reports: Fever/Chills. Denies: Confusion, Chest Pain, Cough, Diaphoresis, Headaches, Loss of Appetite, Nausea/Vomiting, Rash, Seizure , Shortness of Breath, Weakness - Related Data Allergies Allergy/AdvReac Type Severity Reaction Status Date / Time Penicillins Allergy Unknown Edema Verified 04/05/17 20:47 shellfish derived Allergy Unknown Anaphylactic Verified 04/05/17 20:47 Shock Sulfa (Sulfonamide Allergy Unknown Edema Verified 04/05/17 20:47 Antibiotics) clonidine AdvReac Intermediate Lethargy Verified 04/05/17 20:47 klonopin AdvReac Intermediate Lethargy Uncoded 03/28/17 18:00 Home Meds: Home Meds Montelukast Sodium [Singulair] 10 mg PO DAILY@1200 10/02/14 [History] guaiFENesin [Mucinex] 600 mg PO BID 10/02/14 [History] Insulin Glarg,Human.Rec.Analog [Lantus Solostar] 20 units SUBCUT BEDTIME pen [Rx] Omeprazole 20 mg PO ACBRK 11/04/14 [History] predniSONE 10 mg PO DAILY 11/04/14 [History] Albuterol [Proventil Neb Soln] 2.5 mg INH QID neb 05/08/15 [Rx] Albuterol [Proair HFA] 1 puff INH Q4HR PRN 06/04/15 [History] Cholecalciferol (Vitamin D3) [Vitamin D3] 1,000 units PO DAILY@1200 06/04/15 [ History] Fluticasone Propionate [Flonase] 1 spray NASBOTH DAILY 06/04/15 [History] Formoterol [Perforomist] 20 mcg NEB QID 06/04/15 [History] Desvenlafaxine [Pristiq] 50 mg PO QPM 01/03/16 [History] Metoprolol Tartrate [Lopressor] 25 mg PO BID 01/03/16 [History] traMADol [Ultram] 50 mg PO QID 01/03/16 [History] Melatonin 5 mg PO BEDTIME 06/22/16 [History] Multivitamins [Childrens Chewable Vitamin] 1 tab PO DAILY@1200 06/22/16 [History ] Roflumilast [Daliresp] 500 mcg PO DAILY 09/18/16 [History] Acetaminophen [Tylenol Extra Strength] 1,000 mg PO TID 09/27/16 [History] Sennosides/Docusate Sodium [Senna-Docusate Sodium] 1 tab PO BID 09/27/16 [ History] Umeclidinium [place] [Incruse Ellipta] 1 puff IH DAILY 09/27/16 [History] Acetylcysteine [Mucomyst 20%] 600 mg NEB Q6H #60 vial 04/01/17 [Rx] Albuterol/Ipratropium [DuoNeb 3.0-0.5 MG/3 ML] 3 ml NEB Q6H neb 04/01/17 [Rx] Capsaicin 60 gm TP TID #60 cream..g. 04/01/17 [Rx] Digoxin [Lanoxin] 125 mcg PO DAILY tablet 04/01/17 [Rx] Gabapentin [Neurontin] 300 mg PO TID #90 cap 04/01/17 [Rx] Insulin Aspart [NovoLOG] 0 unit SUBCUT TIDMEALS pen 04/01/17 [Rx] Insulin Aspart [NovoLOG] 3 unit SUBCUT DAILY@0400,0700,1100 #1 pen 04/01/17 [Rx] LORazepam [Ativan] 0.5 mg PO Q6H PRN #120 tablet 04/01/17 [Rx] Nicotine [Habitrol] 21 mg TRDERM DAILY #30 patch 04/01/17 [Rx] QUEtiapine [SEROquel] 12.5 mg PO DAILY #30 tablet 04/01/17 [Rx] QUEtiapine [SEROquel] 25 mg PO BEDTIME #30 tablet 04/01/17 [Rx] fentaNYL [Duragesic] 25 mcg TRDERM Q72H #10 patch 04/01/17 [Rx] hydrOXYzine HCl [hydrOXYzine] 25 mg PO Q6H PRN #30 tablet 04/01/17 [Rx] Past Medical History HEENT History: Reports: Allergic Rhinitis, Hard of Hearing, Impaired Vision, Other (See Below) Other HEENT History: trach placed x 2 years ago Cardiovascular History: Reports: Heart Failure, Hypertension, Other (See Below) Other Cardiovascular History: a flutter Respiratory History: Reports: SOB Other Respiratory History: SOB excessive plegm Gastrointestinal History: Reports: Chronic Constipation, GERD Genitourinary History: Reports: Chronic Renal Insuffiency, UTI, Recurrent Other Genitourinary History: no uti recently [employer] History: Reports: Musculoskeletal History: Reports: Arthritis, Back Pain, Chronic, Neck Pain, Chronic Neurological History: Reports: Migraines Psychiatric History: Reports: Anxiety, Depression Endocrine/Metabolic History: Reports: Diabetes, Type II Hematologic History: Reports: Anemia Dermatologic History: Reports: Other (See Below) Other Dermatologic History: bruises easily - Infectious Disease History Infectious Disease History: Reports: VRE - Past Surgical History HEENT Surgical History: Reports: Other (See Below) GI Surgical History: Reports: Hernia, Abdominal Social & Family History - Family History Family Medical History: Noncontributory Cardiac: Reports: Hypertension Respiratory: Reports: Asthma, COPD Psychiatric: Reports: Anxiety - Tobacco Use Smoking Status *Q: Current Every Day Smoker Years of Tobacco use: 45 Packs/Tins Daily: 1 Used Tobacco, but Quit: No Month Tobacco Last Used: Aug Second Hand Smoke Exposure: Yes - Caffeine Use Caffeine Use: Reports: Coffee, Soda, Tea - Alcohol Use Days Per Week of Alcohol Use: 0 - Recreational Drug Use Recreational Drug Use: No Drug Use in Last 12 Months: No - Living Situation & Occupation Living situation: Reports: Single, with Significant Other Occupation: Disabled ED ROS GENERAL - Review of Systems Review Of Systems: See Below Constitutional: Reports: Chills. Denies: Fever, Night Sweats, Diaphoresis, Weight Loss HEENT: Denies: Rhinitis, Throat Pain, Throat Swelling Respiratory: Denies: Shortness of Breath, Wheezing, Pleuritic Chest Pain, Cough , Sputum Cardiovascular: Denies: Chest Pain, Dyspnea on Exertion, Lightheadedness, Syncope GI/Abdominal: Denies: Abdominal Pain, Nausea, Vomiting : Denies: Dysuria, Flank Pain, Frequency Musculoskeletal: Denies: Neck Pain, Joint Pain, Joint Swelling Skin: Denies: Jaundice, Pruritis, Rash Neurological: Denies: Confusion, Dizziness, Headache ED EXAM, GENERAL - Physical Exam Exam: See Below Exam Limited By: No Limitations General Appearance: Alert, WD/WN, No Apparent Distress Eye Exam: Bilateral Eye: EOMI, PERRL Ears: Normal External Exam, Normal Canal, Hearing Grossly Normal, Normal TMs Nose: Normal Inspection, Normal Mucosa, No Blood Throat/Mouth: Normal Inspection, Normal Lips, Normal Teeth, Normal Gums, Normal Oropharynx, Normal Voice, No Airway Compromise Head: Atraumatic, Normocephalic Neck: Normal Inspection, Supple, Non-Tender, Full Range of Motion Respiratory/Chest: No Respiratory Distress, Lungs Clear, Normal Breath Sounds, No Accessory Muscle Use, Chest Non-Tender, Other (breathing through permanent tracheostomy) Cardiovascular: Normal Peripheral Pulses, Regular Rate, Rhythm, No Edema, No Gallop, No JVD, No Murmur, No Rub GI/Abdominal: Normal Bowel Sounds, Soft, Non-Tender, No Organomegaly, No Distention, No Abnormal Bruit, No Mass Course - Vital Signs Text/Narrative:: Pt's CBC is normal. Her White count is elevated from reactive leucocytosis form prednisone. Her CMP appears normal, with normal electrolytes and her creat is down form 2.56 last week to 0.88 today. Her Chest xray is stable, no acute changes. Her UA shows positive nitrites and she has a urine culture report from 3 days ago, which does show Ecoli sensitive to cipro.Pt has been started on cipro 500mg po BID for 1 wk. Advised to drink plenty of fluids. Her SPO2 is running around 90-93% on oxygen. Not in any acute distress. She probably is having non specific cold feeling as the ambient outdoor temperature is warm today and making room temp is relatively cold. There is no acute illness, that I can explain her cold with all stable lab work. Advised to followup in 1 wk with primary care provider. Last Recorded V/S: Last Vital Signs Temp Pulse 86 04/05/17 20:44 Resp 20 04/05/17 20:44 BP 158/72 H 04/05/17 20:44 Pulse Ox 89 L 04/05/17 20:44 - Orders/Labs/Meds Orders: Active Orders 24 hr Category Date Time Status Chest 1V Frontal [CR] Stat Exams 04/05/17 20:33 Taken Labs: Laboratory Tests 04/05/17 04/05/17 04/05/17 Range/Units 20:45 20:45 20:48 WBC 16.6 H (4.0-11.0) K/uL RBC 4.63 (3.80-5.80) M/uL Hgb 13.1 (11.5-16.5) g/dL Hct 42.8 (37.0-47.0) % MCV 92 (76-96) fL MCH 28.3 (27.0-32.0) pg MCHC 30.6 L (31.0-35.0) g/dL RDW 14.0 (11.0-16.0) % Plt Count 337 D (150-500) K/uL MPV 9.6 (6.0-10.0) fL Neut % (Auto) 74.3 H (45.0-70.0) % Lymph % (Auto) 16.7 L (20.0-40.0) % [place] % (Auto) 8.5 (3.0-10.0) % Eos % (Auto) 0.3 L (1.0-5.0) % Baso % (Auto) 0.2 (0.0-0.5) % Neut # (Auto) 12.33 H (2.00-7.50) K/uL Lymph # (Auto) 2.77 (1.50-4.00) K/uL [place] # (Auto) 1.41 H (0.20-0.80) K/uL Eos # (Auto) 0.05 (0.04-0.40) K/uL Baso # (Auto) 0.04 (0.02-0.10) K/uL Sodium 142 (136-145) mmol/L Potassium 4.3 (3.5-5.1) mmol/L Chloride 98 (98-107) mmol/L Carbon Dioxide 43.6 H (21.0-32.0) mmol/L Anion Gap 4.7 L (5.0-15.0) mmol/L BUN 20 D (8-26) mg/dL Creatinine 0.88 (0.55-1.02) mg/dL Est Cr Clr Drug Dosing 53.77 mL/min Estimated GFR (MDRD) > 60 (>60) MLS/MIN BUN/Creatinine Ratio 22.7 (6-25) Glucose 108 H D (74-100) mg/dL Calcium 9.4 (8.5-10.1) mg/dL Total Bilirubin 0.4 D (0.0-1.0) mg/dL AST 14 L (15-37) U/L ALT 26 (12-78) U/L Alkaline Phosphatase 90 (46-116) U/L Total Protein 7.1 (6.4-8.2) g/dL Albumin 3.3 L (3.4-5.0) g/dL Globulin 3.8 (2.2-4.2) g/dL Albumin/Globulin Ratio 0.9 (0.8-2.0) Urine Color Yellow Urine Appearance Clear (CLEAR) Urine pH 6.5 (5.0-8.0) Ur Specific [place] 1.015 (1.003-1.030) Urine Protein Negative (NEGATIVE) mg/dL Urine Glucose (UA) Negative (NEGATIVE) mg/dL Urine Ketones Negative (NEGATIVE) mg/dL Urine Occult Blood Small H (NEGATIVE) Urine Nitrite Positive H (NEGATIVE) Urine Bilirubin Negative (NEGATIVE) Urine Urobilinogen 0.2 (0.2-1.0) E.U./dL Ur Leukocyte Esterase Small H (NEGATIVE) Urine RBC 0-5 H /HPF Urine WBC 20-30 H /HPF Ur Squamous Epith Cells Moderate /HPF Urine Bacteria Many H /HPF Departure - Departure Time of Disposition: 21:50 Disposition: Home, Self-Care 01 Condition: Good Clinical Impression: Cold, UTI (urinary tract infection) - Discharge Information Forms: ED Department Discharge - Problem List Review Problem List Initiated/Reviewed/Updated: Yes - My Orders Last 24 Hours: My Active Orders 04/05/17 20:33 Chest 1V Frontal [CR] Stat - Assessment/Plan Last 24 Hours: My Active Orders 04/05/17 20:33 Chest 1V Frontal [CR] Stat Assessment:: UTI Plan: Pt's CBC is normal. Her White count is elevated from reactive leucocytosis form prednisone. Her CMP appears normal, with normal electrolytes and her creat is down form 2.56 last week to 0.88 today. Her Chest xray is stable, no acute changes. Her UA shows positive nitrites and she has a urine culture report from 3 days ago, which does show Ecoli sensitive to cipro.Pt has been started on cipro 500mg po BID for 1 wk. Advised to drink plenty of fluids. Her SPO2 is running around 90-93% on oxygen. Not in any acute distress. She probably is having non specific cold feeling as the ambient outdoor temperature is warm today and making room temp is relatively cold. There is no acute illness, that I can explain her cold with all stable lab work. Advised to followup in 1 wk with primary care provider.
--- NOTE | 2017-04-06 12:39 | CR ---
DATE OF SERVICE: 04/05/2017 CLINICAL DATA: Chest pain. AP PORTABLE CHEST Comparison is made to a prior exam dated 03/28/2017. Right costophrenic angle and right lower chest is cut off. The tracheostomy tube remains in adequate position. The heart size is stable. The lungs appear clear. No acute abnormalities. [id number] MTDD
== END 2017-04-05 22:00 | disposition home or self-care (01) ==
LOC: LB.ED 20:29
DX: N39.0 Urinary tract infection, site not specified (principal); J00 Acute nasopharyngitis [common cold]; K21.9 Gastro-esophageal reflux disease without esophagitis; F17.210 Nicotine dependence, cigarettes, uncomplicated; E11.22 Type 2 diabetes mellitus with diabetic chronic kidney disease; F41.9 Anxiety disorder, unspecified; I13.0 Hypertensive heart and chronic kidney disease with heart failure and stage 1 through stage 4 chronic kidney disease, or unspecified chronic kidney disease; I50.9 Heart failure, unspecified; N18.9 Chronic kidney disease, unspecified; F32.9 Major depressive disorder, single episode, unspecified; Z88.0 Allergy status to penicillin; Z88.2 Allergy status to sulfonamides; Z88.5 Allergy status to narcotic agent; Z91.013 Allergy to seafood; Z79.4 Long term (current) use of insulin; Z79.899 Other long term (current) drug therapy; Z86.79 Personal history of other diseases of the circulatory system; Z87.440 Personal history of urinary (tract) infections
CPT/HCPCS: 36415; 71010; 80053; 81001; 85025; 99283; A9270

== ENCOUNTER 2017-04-09 17:14 | Emergency (ER) | payer MEDICARE, MEDICAID ==
[2017-04-09] MEDS: Sodium Chloride 0.9% 1,000 ML IV ONE ×2 (18:00→19:59)
[2017-04-09] MEDS ORDERED: cefTRIAXone 2 GM in Sodium Chloride 0.9% 100 ML IV ONE (19:50)
--- NOTE | 2017-04-09 21:29 | ER ---
HISTORY OF PRESENT ILLNESS: A 61-year-old lady who comes in by ambulance after becoming unresponsive. She was sitting at home when she just passed out, and her head hit the table. She was unconscious for about 20 minutes. She regained consciousness before the ambulance got to her home, and the patient has been awake but slightly sleepy but coherent since. She denies any problems with chest pain. She has not been coughing any more than her normal amount of coughing with COPD and CHF. The patient states she does not feel well. She was previously seen on 04/05/2017 four days ago and diagnosed with a urinary tract infection and was started on Levaquin. The patient has not had any problems with upset stomach, nausea, vomiting, or diarrhea. PAST MEDICAL HISTORY: Extensive that includes COPD, CHF, chronic hypercapnic respiratory failure, history of bronchitis, history of tobacco abuse, history of pneumonia, history of UTI, history of depression, anemia, and generalized weakness. She has history of hypertension. She is diabetic and is insulin dependent. OBJECTIVE: GENERAL APPEARANCE: The patient is awake and alert. No respiratory distress at this time. VITAL SIGNS: Initially showed she is afebrile. The pulse is 100, slightly irregular. Blood pressure 83/62 on her first attempt. Respirations of 24. O2 sats are 91% on room air. LUNGS: Significantly reduced air exchange. I can just hear some mild end- expiratory rales. I do not hear any wheezes at this time. HEENT: Oral mucous membranes are dry. Tonsils not enlarged or injected. Pharynx not inflamed. Ears, TMs are normal. CARDIAC: Heart sounds distinct. I do not hear any murmurs. S1, S2 present. ABDOMEN: Soft, nontender, protuberant. SKIN: Warm and dry. The patient does have a trach tube placed, and it appears to be patent. INITIAL TREATMENT: One liter of normal saline was given as a fluid challenge. It changed her blood pressure just slightly. Blood pressure readings after the fluid challenge were 100/67, 105/42, and the last reading was 125/68. O2 sats did drop below 90% on a couple of occasions down to 87%, and the patient was started on oxygen at 2 L. LABS AND X-RAY: Chest x-ray shows chronic changes. No acute changes. No pneumonia. Labs: CBC shows a white count of 21,300. This compares to a white count of 16.6 four days ago. Neutrophils are elevated and viral markers are low. CMP shows a significant decreasing kidney function. Her BUN is now 52, four days ago was 20; creatinine 2.32, four days ago was 0.88; potassium is 5.6, four days ago was at 4.3; BNP is 509, this is stable with the previous BNP from 05/2016. GFR is now 21, four days ago was greater than 60. Troponin is negative. EKG is also unremarkable for any acute changes. DIAGNOSES: 1. Acute renal failure. 2. Sepsis or borderline sepsis. The patient does meet the criteria. TREATMENT PLAN: At this point, I consulted with the on-call physician at [facility] in [place], Dr. Camarillo, who accepted this patient. She will be transferred by ground ambulance to [facility] in [place]. She was given a DuoNeb here to do some coughing that she had and Rocephin 2 g was also started IV. A second liter of fluids will be started at 100 mL per hour. CRS/MODL /[id number]
[2017-04-09 21:48] VITALS: BP 138/57
--- NOTE | 2017-04-11 07:05 | CR ---
DATE OF SERVICE: 04/09/17 CLINICAL DATA: UNRESPONSIVE EPISODE. AP PORTABLE CHEST: Comparison is made to a prior exam dated 04/05/17. The patient is rotated to the right. The exam was performed during expiration. The heart size is stable. The pulmonary vasculature appears more prominent than on the prior exam. This is probably related to the poor inspiration. There is subtle ground-glass opacity in the left perihilar region, suggesting the possibility of pneumonia/ pneumonitis. No pneumothorax. No pleural effusions. The tracheostomy tube is again seen. . [id number] [facility]
== END 2017-04-09 20:55 | disposition home or self-care (01) ==
LOC: LB.ED 17:14
DX: N17.9 Acute kidney failure, unspecified (principal); J44.9 Chronic obstructive pulmonary disease, unspecified; I11.0 Hypertensive heart disease with heart failure; E11.9 Type 2 diabetes mellitus without complications; F32.9 Major depressive disorder, single episode, unspecified; I50.9 Heart failure, unspecified; Z87.891 Personal history of nicotine dependence; Z87.440 Personal history of urinary (tract) infections; Z79.4 Long term (current) use of insulin; Z87.01 Personal history of pneumonia (recurrent)
CPT/HCPCS: 36415; 71010; 80053; 81001; 83605; 83880; 84484; 85025; 93005; 96361; 96365; 99284; A0425; A0429; J0696; J7030; J7040; 99285

== ENCOUNTER 2017-08-22 20:06 | Emergency (ER) | payer MEDICARE, MEDICAID ==
[2017-08-22] MEDS ORDERED: methylPREDNISolone Sodium Succinate 125 MG/2 ML SDV IVPUSH ONE (21:40)
[2017-08-22] MEDS ORDERED: methylPREDNISolone Sodium Succinate 125 MG/2 ML SDV ONE (21:46)
[2017-08-22] MEDS: Naloxone 2 MG/2 ML Syringe IVPUSH PRN ×2 (22:13→23:35)
[2017-08-22] MEDS ORDERED: Naloxone 2 MG/2 ML Syringe ONE (22:15)
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
[2017-08-23 01:05] VITALS: BP 138/85
--- NOTE | 2017-08-23 09:08 | CT ---
DATE OF SERVICE: 08/22/17 CLINICAL DATA: decreased mental status UNENHANCED BRAIN CT: Multislice acquisition through the brain without IV contrast was performed. Comparison is made to a prior exam dated 05/24/14. Motion artifact degrades image quality. No masses or mass effect. No intracranial hemorrhage. No evidence of acute or subacute infarct. No osseous abnormalities. IMPRESSION: Significant motion artifact. No gross abnormalities. Repeat study is recommended. [id number] [facility]
--- NOTE | 2017-08-23 09:11 | CR ---
DATE OF SERVICE: 08/22/17 CLINICAL DATA: shortness of breath FRONTAL VIEW OF THE CHEST Comparison is made to a prior exam dated 04/09/17. The tracheostomy tube remains in place. The heart is mildly enlarged. The lungs are clear. No pneumothorax. No pleural effusions. [id number] [facility]
== END 2017-08-23 00:20 ==
LOC: LB.ED 20:06
DX: R41.82 Altered mental status, unspecified (principal); J42 Unspecified chronic bronchitis; I11.0 Hypertensive heart disease with heart failure; I50.9 Heart failure, unspecified; F32.9 Major depressive disorder, single episode, unspecified; F41.9 Anxiety disorder, unspecified; F17.210 Nicotine dependence, cigarettes, uncomplicated; Z88.0 Allergy status to penicillin; Z91.013 Allergy to seafood; Z88.8 Allergy status to other drugs, medicaments and biological substances; Z79.899 Other long term (current) drug therapy; Z79.4 Long term (current) use of insulin; Z79.52 Long term (current) use of systemic steroids; Z87.440 Personal history of urinary (tract) infections; Z86.14 Personal history of Methicillin resistant Staphylococcus aureus infection; E11.9 Type 2 diabetes mellitus without complications
CPT/HCPCS: 36415; 70450; 71045; 80053; 83880; 85025; 96374; 96375; 99285; 99285-25; J2310; J2930

== ENCOUNTER 2017-08-31 08:22 | Emergency (ER) | payer MEDICARE, MEDICAID ==
[2017-08-31 09:01] VITALS: BP 137/78
--- NOTE | 2017-08-31 09:07 | EDM.PDOC ---
ED HPI GENERAL MEDICAL PROBLEM - General Chief Complaint: Respiratory Problem Stated Complaint: no trach Time Seen by Provider: 08/31/17 08:40 Source of Information: Reports: Patient, RN History Limitations: Reports: No Limitations - History of Present Illness INITIAL COMMENTS - FREE TEXT/NARRATIVE: 62 yr female presents with uncuffed trach, states she pulled the cuffed tube out around 3am today. She has come to the ER by ambulance. Respiratory therapist called to [place] and recommend to return to [place] to have trach inserted. We do not have any supplies here for this. - Related Data Allergies Allergy/AdvReac Type Severity Reaction Status Date / Time Penicillins Allergy Unknown Edema Verified 04/09/17 18:12 shellfish derived Allergy Unknown Anaphylactic Verified 04/09/17 18:12 Shock Sulfa (Sulfonamide Allergy Unknown Edema Verified 04/09/17 18:12 Antibiotics) clonidine AdvReac Intermediate Lethargy Verified 04/09/17 18:12 klonopin AdvReac Intermediate Lethargy Uncoded 04/09/17 18:12 Home Meds: Home Meds Montelukast Sodium [Singulair] 10 mg PO DAILY@1200 10/02/14 [History] guaiFENesin [Mucinex] 600 mg PO BID 10/02/14 [History] Insulin Glarg,Human.Rec.Analog [Lantus Solostar] 20 units SUBCUT BEDTIME pen [Rx] Omeprazole 20 mg PO ACBRK 11/04/14 [History] predniSONE 10 mg PO DAILY 11/04/14 [History] Albuterol [Proventil Neb Soln] 2.5 mg INH QID neb 05/08/15 [Rx] Albuterol [Proair HFA] 1 puff INH Q4HR PRN 06/04/15 [History] Cholecalciferol (Vitamin D3) [Vitamin D3] 1,000 units PO DAILY@1200 06/04/15 [ History] Fluticasone Propionate [Flonase] 1 spray NASBOTH DAILY 06/04/15 [History] Formoterol [Perforomist] 20 mcg NEB QID 06/04/15 [History] Desvenlafaxine [Pristiq] 50 mg PO QPM 01/03/16 [History] Metoprolol Tartrate [Lopressor] 25 mg PO BID 01/03/16 [History] traMADol [Ultram] 50 mg PO QID 01/03/16 [History] Melatonin 5 mg PO BEDTIME 06/22/16 [History] Multivitamins [Childrens Chewable Vitamin] 1 tab PO DAILY@1200 06/22/16 [History ] Roflumilast [Daliresp] 500 mcg PO DAILY 09/18/16 [History] Acetaminophen [Tylenol Extra Strength] 1,000 mg PO TID 09/27/16 [History] Sennosides/Docusate Sodium [Senna-Docusate Sodium] 1 tab PO BID 09/27/16 [ History] Umeclidinium [place] [Incruse Ellipta] 1 puff IH DAILY 09/27/16 [History] Acetylcysteine [Mucomyst 20%] 600 mg NEB Q6H #60 vial 04/01/17 [Rx] Albuterol/Ipratropium [DuoNeb 3.0-0.5 MG/3 ML] 3 ml NEB Q6H neb 04/01/17 [Rx] Capsaicin 60 gm TP TID #60 cream..g. 04/01/17 [Rx] Digoxin [Lanoxin] 125 mcg PO DAILY tablet 04/01/17 [Rx] Gabapentin [Neurontin] 300 mg PO TID #90 cap 04/01/17 [Rx] Insulin Aspart [NovoLOG] 0 unit SUBCUT TIDMEALS pen 04/01/17 [Rx] Insulin Aspart [NovoLOG] 3 unit SUBCUT DAILY@0400,0700,1100 #1 pen 04/01/17 [Rx] LORazepam [Ativan] 0.5 mg PO Q6H PRN #120 tablet 04/01/17 [Rx] Nicotine [Habitrol] 21 mg TRDERM DAILY #30 patch 04/01/17 [Rx] QUEtiapine [SEROquel] 12.5 mg PO DAILY #30 tablet 04/01/17 [Rx] QUEtiapine [SEROquel] 25 mg PO BEDTIME #30 tablet 04/01/17 [Rx] fentaNYL [Duragesic] 25 mcg TRDERM Q72H #10 patch 04/01/17 [Rx] hydrOXYzine HCl [hydrOXYzine] 25 mg PO Q6H PRN #30 tablet 04/01/17 [Rx] Past Medical History HEENT History: Reports: Allergic Rhinitis, Hard of Hearing, Impaired Vision, Other (See Below) Other HEENT History: trach placed x 2 years ago Cardiovascular History: Reports: Heart Failure, Hypertension, Other (See Below) Other Cardiovascular History: a flutter Respiratory History: Reports: SOB Other Respiratory History: SOB excessive plegm Gastrointestinal History: Reports: Chronic Constipation, GERD Genitourinary History: Reports: Chronic Renal Insuffiency, UTI, Recurrent Other Genitourinary History: no uti 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: Musculoskeletal History: Reports: Arthritis, Back Pain, Chronic, Neck Pain, Chronic Neurological History: Reports: Migraines Psychiatric History: Reports: Anxiety, Depression Endocrine/Metabolic History: Reports: Diabetes, Type II Hematologic History: Reports: Anemia Dermatologic History: Reports: Other (See Below) Other Dermatologic History: bruises easily - Infectious Disease History Infectious Disease History: Reports: MRSA - Past Surgical History HEENT Surgical History: Reports: Other (See Below) GI Surgical History: Reports: Hernia, Abdominal Social & Family History - Family History Family Medical History: Noncontributory Cardiac: Reports: Hypertension Respiratory: Reports: Asthma, COPD Psychiatric: Reports: Anxiety - Tobacco Use Smoking Status *Q: Current Every Day Smoker Years of Tobacco use: 44 Packs/Tins Daily: 1 Used Tobacco, but Quit: No Month Tobacco Last Used: Fe Second Hand Smoke Exposure: Yes - Caffeine Use Caffeine Use: Reports: Coffee - Alcohol Use Days Per Week of Alcohol Use: 0 - Recreational Drug Use Recreational Drug Use: No Drug Use in Last 12 Months: No - Living Situation & Occupation Living situation: Reports: Single, with Significant Other Occupation: Disabled ED ROS GENERAL - Review of Systems Review Of Systems: See Below Respiratory: Reports: Cough, Sputum, Other (chronic COPD) ED EXAM, GENERAL - Physical Exam Exam: See Below Exam Limited By: Other (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 to 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) General Appearance: Alert, No Apparent Distress Throat/Mouth: No Airway Compromise Head: Atraumatic, Normocephalic Neck: Other (Redness to skin below her trach area) Respiratory/Chest: Decreased Breath Sounds (to bases), Rhonchi (Clears w cough) , Wheezing (Clears with nebulizer), Other (Lungs more clear now than previous visit) Neurological: Alert, Oriented Psychiatric: Normal Affect Skin Exam: Warm, Dry, Normal Color Course - Vital Signs Last Recorded V/S: Last Vital Signs Temp 98.2 F 08/31/17 08:58 Pulse 102 H 08/31/17 08:58 Resp 20 08/31/17 08:58 BP 137/78 08/31/17 08:58 Pulse Ox 96 08/31/17 08:58 - Orders/Labs/Meds Orders: Active Orders 24 hr Category Date Time Status RT Aerosol Therapy [RC] ASDIRECTED Care 08/31/17 10:15 Active Albuterol [Proventil Neb Soln] Med 08/31/17 09:14 Active 2.5 mg NEB Q2H PRN Medication Orders Albuterol (Proventil Neb Soln) 2.5 mg NEB Q2H PRN PRN Reason: short of breath Last Admin: 08/31/17 09:15 Dose: 2.5 mg Meds: Medications Generic Name Dose Route Start Last Admin Trade Name Freq PRN Reason Stop Dose Admin Albuterol 2.5 mg 08/31/17 09:14 08/31/17 09:15 Proventil Neb Soln NEB 2.5 mg Q2H PRN Administration short of breath Discontinued Medications Generic Name Dose Route Start Last Admin Trade Name Freq PRN Reason Stop Dose Admin Tramadol HCl Confirm 08/31/17 09:36 08/31/17 10:13 Ultram Administered 08/31/17 09:37 50 mg Dose Administration 50 mg .ROUTE .STK-MED ONE - Re-Assessments/Exams Free Text/Narrative Re-Assessment/Exam: 08/31/17 10:00 Recommend to return to [facility] for trach placement. Pt doesn't have new supplies with her and no supplies at this facility for this. [facility] and pt can present to ER for new trach to be inserted. Pt concerned with respiratory therapy coming to home today to have BiPap set-up. Notified Jorge at respiratory and pt will contact him when she returns home. States he will come to home tonight to assist with Bipap set- up. Significant other will transport pt to [place]. Pt in no acute distress with this and is improved from her last visit. Departure - Departure Time of Disposition: 10:06 Disposition: Home, Self-Care 01 Condition: Good Clinical Impression: Trachea displaced COPD (chronic obstructive pulmonary disease) Qualifiers: COPD type: chronic bronchitis Chronic bronchitis type: unspecified Qualified Code(s): J42 - Unspecified chronic bronchitis - Discharge Information Referrals: PCP,None [Primary Care Provider] - Forms: ED Department Discharge - My Orders Last 24 Hours: My Active Orders 08/31/17 09:14 Albuterol [Proventil Neb Soln] 2.5 mg NEB Q2H PRN 08/31/17 10:15 RT Aerosol Therapy [RC] ASDIRECTED - Assessment/Plan Last 24 Hours: My Active Orders 08/31/17 09:14 Albuterol [Proventil Neb Soln] 2.5 mg NEB Q2H PRN 08/31/17 10:15 RT Aerosol Therapy [RC] ASDIRECTED
[2017-08-31] MEDS ORDERED: Albuterol 0.083% 2.5 MG/3 ML Neb Soln NEB PRN (09:14)
[2017-08-31] MEDS ORDERED: traMADol 50 MG Tab ONE (09:36)
== END 2017-08-31 10:10 | disposition home or self-care (01) ==
LOC: LB.ED 08:22
DX: J95.03 Malfunction of tracheostomy stoma (principal); J42 Unspecified chronic bronchitis; F17.210 Nicotine dependence, cigarettes, uncomplicated; Z88.0 Allergy status to penicillin; Z88.2 Allergy status to sulfonamides; Z91.013 Allergy to seafood; Z88.8 Allergy status to other drugs, medicaments and biological substances
CPT/HCPCS: 94640; 99283; A0425; A0429; A9270

== ENCOUNTER 2017-09-26 08:35 | Emergency (ER) | payer MEDICARE, MEDICAID ==
[2013-05-14 13:14] VITALS: BP 154/76
[2017-09-26 09:18] VITALS: BP 150/84
--- NOTE | 2017-09-26 12:13 | CT ---
DATE OF SERVICE: 09/26/17 CLINICAL DATA: abdominal pressure UNENHANCED ABDOMEN AND PELVIC CT: Multislice acquisition through the abdomen and pelvis without IV or oral contrast was performed. No priors. The lung bases are clear. The heart size is normal. There is dense calcification in the region of the mitral valve. There is a small hiatal hernia. The unenhanced liver appears normal. The gallbladder appears normal. The spleen appears normal. 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 The pancreas appears normal. The right and left adrenals appear normal. The right and left kidneys appear normal. No nephrocalcinosis or nephrolithiasis. No hydronephrosis or hydroureter. The bladder is partially fluid-filled. There is apparent mild diffuse bladder wall thickening. This is probably secondary to nondistension. Cystitis should at least be considered. The patient is status post hysterectomy. No evidence of appendicitis. There is a periumbilical ventral hernia that contains a short segment of the transverse colon. No obstruction associated with it. There is mild diverticulosis of the descending and sigmoid colon. No evidence of diverticulitis. No free air. No free fluid. No dilated loops of bowel. No adenopathy. No aortic aneurysm. IMPRESSION: 1) Periumbilical ventral hernia containing a short segment of the transverse colon. No evidence of obstruction associated with it. 2) Other findings as discussed above. [id number] [facility]
--- NOTE | 2017-09-27 05:26 | EDM.PDOC ---
ED HPI GENERAL MEDICAL PROBLEM - General Chief Complaint: Respiratory Problem Stated Complaint: Shortness of Breath/ Middle abdominal pain Time Seen by Provider: 09/26/17 09:10 Source of Information: Reports: Patient History Limitations: Reports: No Limitations - History of Present Illness INITIAL COMMENTS - FREE TEXT/NARRATIVE: This is a 62yo F with permanent trach brought in by EMS for complaints of abdominal pressure. She had recently called the clinic and was not able to obtain an appointment as early as she would like. Patient states the abdominal pressure has been bothering for the longest time and had previously been referred for surgery but that fell through and she could not recall much of that history. Patient is a poor historian. Patient denies shortness of breath, no chest pain or pressure. Denies other concerns today. Duration: Chronic Location: Reports: Abdomen Quality: Reports: Pressure Severity: Moderate Improves with: Reports: None Worsens with: Reports: None Associated Symptoms: Reports: No Other Symptoms - Related Data Allergies Allergy/AdvReac Type Severity Reaction Status Date / Time Penicillins Allergy Unknown Edema Verified 09/26/17 09:28 shellfish derived Allergy Unknown Anaphylactic Verified 09/26/17 09:28 Shock Sulfa (Sulfonamide Allergy Unknown Edema Verified 09/26/17 09:28 Antibiotics) clonidine AdvReac Intermediate Lethargy Verified 09/26/17 09:28 klonopin AdvReac Intermediate Lethargy Uncoded 09/26/17 09:28 Home Meds: Home Meds Montelukast Sodium [Singulair] 10 mg PO DAILY@1200 10/02/14 [History] guaiFENesin [Mucinex] 600 mg PO BID 10/02/14 [History] Insulin Glarg,Human.Rec.Analog [Lantus Solostar] 20 units SUBCUT BEDTIME pen [Rx] Omeprazole 20 mg PO ACBRK 11/04/14 [History] predniSONE 20 mg PO DAILY 11/04/14 [History] Albuterol [Proventil Neb Soln] 2.5 mg INH QID neb 05/08/15 [Rx] Albuterol [Proair HFA] 1 puff INH Q4HR PRN 06/04/15 [History] Cholecalciferol (Vitamin D3) [Vitamin D3] 1,000 units PO DAILY@1200 06/04/15 [ History] Fluticasone Propionate [Flonase] 1 spray NASBOTH DAILY 06/04/15 [History] Formoterol [Perforomist] 20 mcg NEB QID 06/04/15 [History] Desvenlafaxine [Pristiq] 50 mg PO QPM 01/03/16 [History] traMADol [Ultram] 75 mg PO QID 01/03/16 [History] Melatonin 5 mg PO BEDTIME 06/22/16 [History] Multivitamins [Childrens Chewable Vitamin] 1 tab PO DAILY@1200 06/22/16 [History ] Roflumilast [Daliresp] 500 mcg PO DAILY 09/18/16 [History] Acetaminophen [Tylenol Extra Strength] 1,000 mg PO TID 09/27/16 [History] Sennosides/Docusate Sodium [Senna-Docusate Sodium] 1 tab PO BID 09/27/16 [ History] Umeclidinium [place] [Incruse Ellipta] 1 puff IH DAILY 09/27/16 [History] Acetylcysteine [Mucomyst 20%] 600 mg NEB Q6H #60 vial 04/01/17 [Rx] Albuterol/Ipratropium [DuoNeb 3.0-0.5 MG/3 ML] 3 ml NEB Q6H neb 04/01/17 [Rx] Digoxin [Lanoxin] 125 mcg PO DAILY tablet 04/01/17 [Rx] Insulin Aspart [NovoLOG] 0 unit SUBCUT TIDMEALS pen 04/01/17 [Rx] LORazepam [Ativan] 0.5 mg PO Q6H PRN #120 tablet 04/01/17 [Rx] QUEtiapine [SEROquel] 12.5 mg PO DAILY #30 tablet 04/01/17 [Rx] QUEtiapine [SEROquel] 25 mg PO BEDTIME #30 tablet 04/01/17 [Rx] hydrOXYzine HCl [hydrOXYzine] 25 mg PO Q6H PRN #30 tablet 04/01/17 [Rx] Diltiazem [Tiazac] 240 mg PO DAILY 09/26/17 [History] Gabapentin [Neurontin] 600 mg PO TID 09/26/17 [History] Nicotine [Habitrol] 21 mg TRDERM ASDIRECTED PRN 09/26/17 [History] Past Medical History HEENT History: Reports: Allergic Rhinitis, Hard of Hearing, Impaired Vision, Other (See Below) Other HEENT History: trach placed x 2 years ago Cardiovascular History: Reports: Heart Failure, Hypertension, Other (See Below) Other Cardiovascular History: a flutter Respiratory History: Reports: SOB Other Respiratory History: SOB excessive plegm Gastrointestinal History: Reports: Chronic Constipation, GERD Genitourinary History: Reports: Chronic Renal Insuffiency, UTI, Recurrent Other Genitourinary History: no uti recently 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: Musculoskeletal History: Reports: Arthritis, Back Pain, Chronic, Neck Pain, Chronic Neurological History: Reports: Migraines Psychiatric History: Reports: Anxiety, Depression Endocrine/Metabolic History: Reports: Diabetes, Type II Hematologic History: Reports: Anemia Dermatologic History: Reports: Other (See Below) Other Dermatologic History: bruises easily - Infectious Disease History Infectious Disease History: Reports: MRSA - Past Surgical History HEENT Surgical History: Reports: Other (See Below) GI Surgical History: Reports: Hernia, Abdominal Social & Family History - Family History Family Medical History: Noncontributory Cardiac: Reports: Hypertension Respiratory: Reports: Asthma, COPD Psychiatric: Reports: Anxiety - Tobacco Use Smoking Status *Q: Current Every Day Smoker Years of Tobacco use: 44 Packs/Tins Daily: 1 Used Tobacco, but Quit: No Month Tobacco Last Used: Aug Second Hand Smoke Exposure: Yes - Caffeine Use Caffeine Use: Reports: Coffee - Alcohol Use Days Per Week of Alcohol Use: 0 - Recreational Drug Use Recreational Drug Use: No Drug Use in Last 12 Months: No - Living Situation & Occupation Living situation: Reports: Single, with Significant Other Occupation: Disabled ED ROS GENERAL - Review of Systems Review Of Systems: ROS reveals no pertinent complaints other than HPI. ED EXAM, GENERAL - Physical Exam Exam: See Below Exam Limited By: No Limitations General Appearance: Alert, WD/WN, No Apparent Distress Eye Exam: Bilateral Eye: EOMI, PERRL Ears: Normal External Exam Nose: Normal Inspection Throat/Mouth: Other (Trach present) Head: Atraumatic, Normocephalic Respiratory/Chest: No Respiratory Distress, Normal Breath Sounds, Rhonchi Cardiovascular: Normal Peripheral Pulses, Regular Rate, Rhythm GI/Abdominal: Normal Bowel Sounds Back Exam: Normal Inspection Extremities: Normal Inspection Neurological: Alert, Oriented, CN II-XII Intact, Normal Cognition, Normal Gait, Normal Reflexes, No Motor/Sensory Deficits Psychiatric: Normal Affect, Normal Mood Skin Exam: Warm, Dry, Intact Course - Vital Signs Last Recorded V/S: Last Vital Signs Temp 36.3 C 09/26/17 09:10 Pulse 140 H 09/26/17 09:10 Resp 22 H 09/26/17 09:10 BP 150/84 H 09/26/17 09:10 Pulse Ox 98 09/26/17 09:10 - Orders/Labs/Meds Orders: Active Orders 24 hr Category Date Time Status CULTURE SPUTUM + SMEAR [RM] Stat Lab 09/26/17 10:48 Results Labs: Laboratory Tests 09/26/17 09/26/17 Range/Units 09:37 09:37 WBC 16.2 H D (4.0-11.0) K/uL RBC 4.42 (3.80-5.80) M/uL Hgb 12.5 (11.5-16.5) g/dL Hct 40.5 (37.0-47.0) % MCV 92 (76-96) fL MCH 28.3 (27.0-32.0) pg MCHC 30.9 L (31.0-35.0) g/dL RDW 14.2 (11.0-16.0) % Plt Count 377 D (150-500) K/uL MPV 9.3 (6.0-10.0) fL Neut % (Auto) 82.3 H (45.0-70.0) % Lymph % (Auto) 9.0 L (20.0-40.0) % [place] % (Auto) 8.2 (3.0-10.0) % Eos % (Auto) 0.2 L (1.0-5.0) % Baso % (Auto) 0.3 (0.0-0.5) % Neut # (Auto) 13.35 H (2.00-7.50) K/uL Lymph # (Auto) 1.46 L (1.50-4.00) K/uL [place] # (Auto) 1.33 H (0.20-0.80) K/uL Eos # (Auto) 0.03 L (0.04-0.40) K/uL Baso # (Auto) 0.05 (0.02-0.10) K/uL Sodium 140 (136-145) mmol/L Potassium 3.9 (3.5-5.1) mmol/L Chloride 95 L (98-107) mmol/L Carbon Dioxide 42.1 H (21.0-32.0) mmol/L Anion Gap 6.8 (5.0-15.0) mmol/L BUN 16 D (8-26) mg/dL Creatinine 1.20 H (0.55-1.02) mg/dL Est Cr Clr Drug Dosing TNP Estimated GFR (MDRD) 46 L (>60) MLS/MIN BUN/Creatinine Ratio 13.3 (6-25) Glucose 223 H D (74-100) mg/dL Calcium 9.1 (8.5-10.1) mg/dL Total Bilirubin 0.5 D (0.0-1.0) mg/dL AST 15 (15-37) U/L ALT 22 (12-78) U/L Alkaline Phosphatase 116 (46-116) U/L B-Natriuretic Peptide 295 H D (0-125) pg/mL Total Protein 6.9 (6.4-8.2) g/dL Albumin 3.1 L (3.4-5.0) g/dL Globulin 3.8 (2.2-4.2) g/dL Albumin/Globulin Ratio 0.8 (0.8-2.0) TSH, Ultra Sensitive 0.572 D (0.358-3.740) uIU/mL Departure - Departure Time of Disposition: 11:30 Disposition: Home, Self-Care 01 Condition: Good Clinical Impression: Periumbilical hernia - Discharge Information Referrals: PCP,None [Primary Care Provider] - Forms: ED Department Discharge - Problem List Review Problem List Initiated/Reviewed/Updated: Yes - My Orders Last 24 Hours: My Active Orders 09/26/17 10:48 CULTURE SPUTUM + SMEAR [RM] Stat - Assessment/Plan Last 24 Hours: My Active Orders 09/26/17 10:48 CULTURE SPUTUM + SMEAR [RM] Stat Plan: Counseled on periumbilical hernia that has been present for years. Patient has known of this hernia and has had prior referral to surgery but it was not done. Patient would like a referral. Referral to be done for Dr. Dwyer. F/u as directed patient agrees to plan and f/u.
== END 2017-09-26 11:15 | disposition home or self-care (01) ==
LOC: LB.ED 08:35
DX: K42.9 Umbilical hernia without obstruction or gangrene (principal); I13.0 Hypertensive heart and chronic kidney disease with heart failure and stage 1 through stage 4 chronic kidney disease, or unspecified chronic kidney disease; I50.9 Heart failure, unspecified; N18.9 Chronic kidney disease, unspecified; E11.22 Type 2 diabetes mellitus with diabetic chronic kidney disease; F17.210 Nicotine dependence, cigarettes, uncomplicated; Z88.0 Allergy status to penicillin; Z91.013 Allergy to seafood; Z88.2 Allergy status to sulfonamides; Z88.5 Allergy status to narcotic agent; Z88.8 Allergy status to other drugs, medicaments and biological substances; Z79.899 Other long term (current) drug therapy; Z79.4 Long term (current) use of insulin
CPT/HCPCS: 36415; 74176; 80053; 83880; 84443; 85025; 87070; 87205; 99283; 99284-25; A0425; A0429

== ENCOUNTER 2017-09-27 16:23 | Inpatient (IN) | payer MEDICARE, MEDICAID ==
--- NOTE | 2017-09-27 17:20 | EDM.PDOC ---
ED HPI GENERAL MEDICAL PROBLEM - General Chief Complaint: General Stated Complaint: Shaking, Hear racing Time Seen by Provider: 09/27/17 17:17 Source of Information: Reports: Patient, RN - History of Present Illness INITIAL COMMENTS - FREE TEXT/NARRATIVE: 62 yr female presents with left sided chest pain and tachycardia. Pt brought in by ambulance. States she started with chest pain around 11am and let up some and now the pain has become worse. She does take Digoxin and Cardiazem and states she did have her medications today. ASA given on the way in by the ambulance staff. Nitro 1 tab SL given. EKG shows atrial fibrillation w rate 141. Consult w Dr Olvera and recommends Cardizem 0.25mg/kg IV. Cardizem 20 mg IV given with heart rate decrease to 112 -120 and pt states chest pain is better and rates pain "5". States she was started on Antibiotic yesterday and states she can't swallow that many pills with all the other medications that she takes. Onset: Today Onset Date: 09/27/17 Onset Time: 11:00 Location: Reports: Chest Improves with: Reports: Medication - Related Data Allergies Allergy/AdvReac Type Severity Reaction Status Date / Time Penicillins Allergy Unknown Edema Verified 09/26/17 09:28 shellfish derived Allergy Unknown Anaphylactic Verified 09/26/17 09:28 Shock Sulfa (Sulfonamide Allergy Unknown Edema Verified 09/26/17 09:28 Antibiotics) clonidine AdvReac Intermediate Lethargy Verified 09/26/17 09:28 klonopin AdvReac Intermediate Lethargy Uncoded 09/26/17 09:28 Home Meds: Home Meds Montelukast Sodium [Singulair] 10 mg PO DAILY@1200 10/02/14 [History] guaiFENesin [Mucinex] 600 mg PO BID 10/02/14 [History] Insulin Glarg,Human.Rec.Analog [Lantus Solostar] 20 units SUBCUT BEDTIME pen [Rx] Omeprazole 20 mg PO ACBRK 11/04/14 [History] predniSONE 20 mg PO DAILY 11/04/14 [History] Cholecalciferol (Vitamin D3) [Vitamin D3] 2,000 units PO DAILY@1200 06/04/15 [ History] Fluticasone Propionate [Flonase] 1 spray NASBOTH DAILY 06/04/15 [History] Desvenlafaxine [Pristiq] 50 mg PO QPM 01/03/16 [History] traMADol [Ultram] 50 mg PO TID 01/03/16 [History] Melatonin 5 mg PO BEDTIME 06/22/16 [History] Multivitamins [Childrens Chewable Vitamin] 1 tab PO DAILY@1200 06/22/16 [History ] Roflumilast [Daliresp] 500 mcg PO DAILY 09/18/16 [History] Umeclidinium [place] [Incruse Ellipta] 1 puff IH DAILY 09/27/16 [History] Digoxin [Lanoxin] 125 mcg PO DAILY tablet 04/01/17 [Rx] Insulin Aspart [NovoLOG] 0 unit SUBCUT TIDMEALS pen 04/01/17 [Rx] QUEtiapine [SEROquel] 12.5 mg PO DAILY #30 tablet 04/01/17 [Rx] QUEtiapine [SEROquel] 25 mg PO BEDTIME #30 tablet 04/01/17 [Rx] hydrOXYzine HCl [hydrOXYzine] 25 mg PO Q6H PRN #30 tablet 04/01/17 [Rx] Diltiazem [Tiazac] 240 mg PO DAILY 09/26/17 [History] Albuterol Sulfate 2.5 mg IH QID 09/27/17 [History] Albuterol Sulfate [Ventolin Hfa] 1 spray PO Q4H PRN 09/27/17 [History] Formoterol Fumarate [Perforomist] 1 vial INH BID 09/27/17 [History] Furosemide 40 mg PO DAILY 09/27/17 [History] Gabapentin [Neurontin] 300 mg PO TID 09/27/17 [History] Ipratropium [place] 1 unit INH QID 09/27/17 [History] LORazepam 1 tab PO BID PRN 09/27/17 [History] Montelukast Sodium 10 mg PO DAILY 09/27/17 [History] Nicotine [Nicotine Patch] 14 mg TRDERM DAILY 09/27/17 [History] Roflumilast [Daliresp] 500 mcg PO DAILY 09/27/17 [History] Umeclidinium [place] [Incruse Ellipta] 1 puff PO DAILY 09/27/17 [History] Past Medical History HEENT History: Reports: Allergic Rhinitis, Hard of Hearing, Impaired Vision, Other (See Below) Other HEENT History: trach placed x 2 years ago Cardiovascular History: Reports: Heart Failure, Hypertension, Other (See Below) Other Cardiovascular History: a flutter Respiratory History: Reports: SOB Other Respiratory History: SOB excessive plegm Gastrointestinal History: Reports: Chronic Constipation, GERD Genitourinary History: Reports: Chronic Renal Insuffiency, UTI, Recurrent Other Genitourinary History: no uti recently [employer] History: Reports: Musculoskeletal History: Reports: Arthritis, Back Pain, Chronic, Neck Pain, Chronic Neurological History: Reports: Migraines Psychiatric History: Reports: Anxiety, Depression Endocrine/Metabolic History: Reports: Diabetes, Type II Hematologic History: Reports: Anemia Dermatologic History: Reports: Other (See Below) Other Dermatologic History: bruises easily - Infectious Disease History Infectious Disease History: Reports: MRSA - Past Surgical History HEENT Surgical History: Reports: Other (See Below) GI Surgical History: Reports: Hernia, Abdominal Social & Family History - Family History Family Medical History: Noncontributory Cardiac: Reports: Hypertension Respiratory: Reports: Asthma, COPD Psychiatric: Reports: Anxiety - Tobacco Use Smoking Status *Q: Current Every Day Smoker Years of Tobacco use: 44 Packs/Tins Daily: 1 Used Tobacco, but Quit: No Month Tobacco Last Used: Aug Second Hand Smoke Exposure: Yes - Caffeine Use Caffeine Use: Reports: Coffee - Alcohol Use Days Per Week of Alcohol Use: 0 - Recreational Drug Use Recreational Drug Use: No Drug Use in Last 12 Months: No - Living Situation & Occupation Living situation: Reports: Single, with Significant Other Occupation: Disabled ED ROS GENERAL - Review of Systems Review Of Systems: See Below Constitutional: Reports: Decreased Appetite. Denies: Fever, Chills HEENT: Reports: Sinus Problem. Denies: Glasses, Throat Pain Respiratory: Reports: Shortness of Breath Cardiovascular: Reports: Chest Pain (started around 11:30 am), Dyspnea on Exertion, Edema Endocrine: Reports: Other (diabetic, controlled w insulin) GI/Abdominal: Reports: Abdominal Pain, Decreased Appetite : Reports: No Symptoms Musculoskeletal: Reports: Other (feels puffy in the legs.) Skin: Reports: No Symptoms Neurological: Reports: Trouble Speaking (related to trach). Denies: Confusion, Dizziness Psychiatric: Reports: Anxiety ED EXAM, GENERAL - Physical Exam Exam: See Below Exam Limited By: No Limitations General Appearance: Alert, Moderate Distress Ears: Hearing Loss (Repeat conversation to pt several times.) Ear Exam: Bilateral Ear: Auricle Normal Nose: Normal Inspection. No: Nasal Drainage Throat/Mouth: Normal Lips, No Airway Compromise, Other (Difficulty with speech related to her trach, covers trach and then speaks.) Head: Atraumatic, Normocephalic Neck: Supple, Non-Tender Respiratory/Chest: Decreased Breath Sounds, Rhonchi, Wheezing, Other (Chronic COPD with tracheostomy patent. Good air exchange noted.) Cardiovascular: Normal Peripheral Pulses, Tachycardia, Irregularly Irregular Peripheral Pulses: 2+: Dorsalis Pedis (L), Dorsalis Pedis (R) GI/Abdominal: Soft, Non-Tender, Hernia (CT of abdomen yesterday shows no obstruction with hernia) Back Exam: Other (Chronic back pain per pt, sits upright during ER visit.) Extremities: Normal Inspection, No Pedal Edema Neurological: Alert, Oriented Psychiatric: Anxious Skin Exam: Warm, Dry, Normal Color, Ecchymosis (to arms, scattered), Other (Dry, scaly skin.) Lymphatic: No Adenopathy Course - Vital Signs Last Recorded V/S: Last Vital Signs Temp 97.1 F 09/28/17 00:17 Pulse 91 09/28/17 00:17 Resp 30 H 09/28/17 04:00 BP 123/82 09/28/17 07:07 Pulse Ox 91 L 09/28/17 00:17 - Orders/Labs/Meds Orders: Active Orders 24 hr Category Date Time Status Admission Diagnosis [ADT] Stat ADT 09/27/17 18:42 Active Patient Status [ADT] Routine ADT 09/27/17 18:44 Active Bedrest Bedside Commode [RC] ASDIRECTED Care 09/27/17 18:43 Active EKG Documentation Completion [RC] ASDIRECTED Care 09/27/17 17:19 Active Oxygen Therapy [RC] PRN Care 09/27/17 18:44 Active Vital Signs [RC] Q4H Care 09/27/17 18:44 Active Heart Healthy Diet [DIET] Diet 09/28/17 Breakfast Ordered URINALYSIS W/MICROSCOPIC [UA W/MICROSCOPIC] [URIN] Stat Lab 09/27/17 23:00 Ordered Morphine Med 09/27/17 17:43 Active 2 mg IVPUSH Q1H PRN Medication Orders Acetaminophen (Tylenol Extra Strength) 1,000 mg PO TID [facility] Last Admin: 09/27/17 23:06 Dose: Acetylcysteine (Mucomyst 20%) 600 mg NEB Q6H [facility] Last Admin: 09/28/17 03:09 Dose: Not Given Admin: 09/27/17 23:03 Dose: 600 mg Albuterol (Proventil Neb Soln) 2.5 mg INH QID [facility] Last Admin: 09/27/17 22:34 Dose: 2.5 mg Albuterol/Ipratropium (Duoneb 3.0-0.5 Mg/3 Ml) 3 ml NEB Q6H [facility] Last Admin: 09/28/17 03:09 Dose: Not Given Admin: 09/27/17 22:34 Dose: 3 ml Cholecalciferol (Vitamin D3) 2,000 units PO DAILY@1200 [facility] Clindamycin HCl (Cleocin) 300 mg PO Q6H [facility] Last Admin: 09/28/17 06:50 Dose: 300 mg Admin: 09/28/17 03:31 Dose: Not Given Admin: 09/28/17 00:43 Dose: Admin: 09/27/17 23:30 Dose: 300 mg Desvenlafaxine Succinate (Pristiq) 50 mg PO QPM [facility] Last Admin: 09/27/17 22:35 Dose: 50 mg Digoxin (Lanoxin) 125 mcg PO DAILY [facility] Diltiazem HCl (Diltiazem) 20 mg IVPUSH ONETIME ONE Stop: 09/28/17 07:28 Fluticasone Propionate (Flonase) 0 gm NASBOTH DAILY [facility] Furosemide (Lasix) 40 mg PO DAILY [facility] Gabapentin (Neurontin) 300 mg PO TID [facility] Last Admin: 09/27/17 22:35 Dose: 300 mg Guaifenesin (Mucinex) 600 mg PO BID [facility] Insulin Aspart (Novolog) 0 unit SUBCUT TIDMEALS [facility] PRN Reason: Protocol Insulin Detemir (Levemir) 10 unit SUBCUT BID [facility] Last Admin: 09/27/17 22:55 Dose: 10 units Lorazepam (Ativan) 0.5 mg PO BID PRN PRN Reason: Anxiety Last Admin: 09/27/17 22:35 Dose: 0.5 mg Montelukast Sodium (Singulair) 10 mg PO DAILY@1200 [facility] Morphine Sulfate (Morphine) 2 mg IVPUSH Q1H PRN PRN Reason: Chest Pain Last Admin: 09/28/17 06:47 Dose: 2 mg Admin: 09/27/17 17:46 Dose: 2 mg Multivitamins/Minerals/Vitamin C (Childrens Chewable Vitamin) 1 tab PO DAILY@ 1200 [facility] Nicotine (Habitrol) 14 mg TRDERM DAILY [facility] Non-Formulary Medication (Diltiazem [Tiazac]) 240 mg PO DAILY [facility] Non-Formulary Medication (Melatonin [Melatonin]) 5 mg PO BEDTIME [facility] Last Admin: 09/27/17 23:15 Dose: 5 mg Non-Formulary Medication (Umeclidinium [place] [Incruse Ellipta]) 1 puff IH DAILY [facility] Omeprazole (Omeprazole) 20 mg PO ACBRK [facility] Prednisone (Prednisone) 15 mg PO ONETIME ONE Stop: 09/28/17 08:01 Prednisone (Prednisone) 20 mg PO ONETIME ONE Stop: 09/29/17 08:01 Prednisone (Prednisone) 15 mg PO ONETIME ONE Stop: 09/30/17 08:01 Prednisone (Prednisone) 20 mg PO ONETIME ONE Stop: 10/01/17 08:01 Prednisone (Prednisone) 10 mg PO DAILY [facility] Stop: 10/08/17 08:01 Quetiapine Fumarate (Seroquel) 12.5 mg PO DAILY [facility] Quetiapine Fumarate (Seroquel) 25 mg PO BEDTIME [facility] Last Admin: 09/27/17 23:17 Dose: 25 mg Roflumilast (Daliresp) 500 mcg PO DAILY [facility] Senna/Docusate Sodium (Senna Plus) 1 tab PO BID [facility] Last Admin: 09/27/17 22:36 Dose: 1 tab Sodium Chloride (Saline Flush) 10 ml FLUSH ASDIRECTED PRN PRN Reason: Keep Vein Open Tramadol HCl (Ultram) 50 mg PO TID [facility] Labs: Laboratory Tests 09/27/17 09/27/17 09/27/17 Range/Units 17:29 17:29 17:29 WBC 12.8 H D (4.0-11.0) K/uL RBC 4.51 (3.80-5.80) M/uL Hgb 12.8 (11.5-16.5) g/dL Hct 40.1 (37.0-47.0) % MCV 89 (76-96) fL MCH 28.4 (27.0-32.0) pg MCHC 31.9 (31.0-35.0) g/dL RDW 14.3 (11.0-16.0) % Plt Count 412 (150-500) K/uL MPV 9.4 (6.0-10.0) fL Neut % (Auto) 84.5 H (45.0-70.0) % Lymph % (Auto) 9.7 L (20.0-40.0) % [place] % (Auto) 5.5 (3.0-10.0) % Eos % (Auto) 0.0 L (1.0-5.0) % Baso % (Auto) 0.3 (0.0-0.5) % Neut # (Auto) 10.83 H (2.00-7.50) K/uL Lymph # (Auto) 1.24 L (1.50-4.00) K/uL [place] # (Auto) 0.71 (0.20-0.80) K/uL Eos # (Auto) 0.00 L (0.04-0.40) K/uL Baso # (Auto) 0.04 (0.02-0.10) K/uL Sodium 143 (136-145) mmol/L Potassium 4.4 (3.5-5.1) mmol/L Chloride 96 L (98-107) mmol/L Carbon Dioxide 39.6 H (21.0-32.0) mmol/L Anion Gap 11.8 (5.0-15.0) mmol/L BUN 21 D (8-26) mg/dL Creatinine 1.43 H (0.55-1.02) mg/dL Est Cr Clr Drug Dosing TNP Estimated GFR (MDRD) 37 L (>60) MLS/MIN BUN/Creatinine Ratio 14.7 (6-25) Glucose 256 H (74-100) mg/dL Calcium 9.1 (8.5-10.1) mg/dL Total Bilirubin 0.6 (0.0-1.0) mg/dL AST 17 (15-37) U/L ALT 19 (12-78) U/L Alkaline Phosphatase 115 (46-116) U/L Troponin I < 0.017 (0.000-0.060) ng/mL B-Natriuretic Peptide 254 H (0-125) pg/mL Total Protein 6.8 (6.4-8.2) g/dL Albumin 3.1 L (3.4-5.0) g/dL Globulin 3.7 (2.2-4.2) g/dL Albumin/Globulin Ratio 0.8 (0.8-2.0) Digoxin 1.3 (0.5-2.00) ng/mL Meds: Medications Generic Name Dose Route Start Last Admin Trade Name Freq PRN Reason Stop Dose Admin Acetaminophen 1,000 mg 09/27/17 20:00 09/27/17 23:06 Tylenol Extra Strength PO Not Given TID [facility] Acetylcysteine 600 mg 09/27/17 19:15 09/28/17 03:09 Mucomyst 20% NEB Not Given Q6H MATTHEW Albuterol 2.5 mg 09/27/17 20:00 09/27/17 22:34 Proventil Neb Soln INH 2.5 mg QID [facility] Administration Albuterol/Ipratropium 3 ml 09/27/17 19:15 09/28/17 03:09 Duoneb 3.0-0.5 Mg/3 Ml NEB Not Given Q6H [facility] Cholecalciferol 2,000 units 09/28/17 12:00 Vitamin D3 PO DAILY@1200 [facility] Clindamycin HCl 300 mg 09/27/17 19:00 09/28/17 06:50 Cleocin PO 300 mg Q6H MATTHEW Administration Desvenlafaxine Succinate 50 mg 09/27/17 20:00 09/27/17 22:35 Pristiq PO 50 mg QPM [facility] Administration Digoxin 125 mcg 09/28/17 08:00 Lanoxin PO DAILY [facility] Diltiazem HCl 20 mg 09/28/17 07:27 Diltiazem IVPUSH 09/28/17 07:28 ONETIME ONE Fluticasone Propionate 0 gm 09/28/17 08:00 Flonase NASBOTH DAILY [facility] Furosemide 40 mg 09/28/17 08:00 Lasix PO DAILY [facility] Gabapentin 300 mg 09/27/17 22:02 09/27/17 22:35 Neurontin PO 300 mg TID [facility] Administration Guaifenesin 600 mg 09/28/17 08:00 Mucinex PO BID [facility] Insulin Aspart 0 unit 03/07/18 08:00 Novolog SUBCUT TIDMEALS [facility] Protocol Insulin Detemir 10 unit 09/28/17 08:00 09/27/17 22:55 Levemir SUBCUT 10 units BID [facility] Administration Lorazepam 0.5 mg 09/27/17 22:02 09/27/17 22:35 Ativan PO 0.5 mg BID PRN Administration Anxiety Montelukast Sodium 10 mg 09/28/17 12:00 Singulair PO DAILY@1200 [facility] Morphine Sulfate 2 mg 09/27/17 17:43 09/28/17 06:47 Morphine IVPUSH 2 mg Q1H PRN Administration Chest Pain Multivitamins/Minerals/Vitamin C 1 tab 09/28/17 12:00 Childrens Chewable Vitamin PO DAILY@1200 [facility] Nicotine 14 mg 09/28/17 08:00 Habitrol TRDERM DAILY [facility] Non-Formulary Medication 240 mg 09/28/17 08:00 Diltiazem [Tiazac] PO DAILY [facility] Non-Formulary Medication 5 mg 09/27/17 20:00 09/27/17 23:15 Melatonin [Melatonin] PO 5 mg BEDTIME [facility] Administration Non-Formulary Medication 1 puff 09/28/17 08:00 Umeclidinium [place] [Incruse Ellipta] IH DAILY [facility] Omeprazole 20 mg 09/28/17 07:00 Omeprazole PO ACBRK [facility] Prednisone 15 mg 09/28/17 08:00 Prednisone PO 09/28/17 08:01 ONETIME ONE Prednisone 20 mg 09/29/17 08:00 Prednisone PO 09/29/17 08:01 ONETIME ONE Prednisone 15 mg 09/30/17 08:00 Prednisone PO 09/30/17 08:01 ONETIME ONE Prednisone 20 mg 10/01/17 08:00 Prednisone PO 10/01/17 08:01 ONETIME ONE Prednisone 10 mg 10/02/17 08:00 Prednisone PO 10/08/17 08:01 DAILY [facility] Quetiapine Fumarate 12.5 mg 09/28/17 08:00 Seroquel PO DAILY [facility] Quetiapine Fumarate 25 mg 09/27/17 20:00 09/27/17 23:17 Seroquel PO 25 mg BEDTIME [facility] Administration Roflumilast 500 mcg 09/28/17 08:00 Daliresp PO DAILY [facility] Senna/Docusate Sodium 1 tab 09/27/17 20:00 09/27/17 22:36 Senna Plus PO 1 tab BID [facility] Administration Sodium Chloride 10 ml 09/27/17 19:38 Saline Flush FLUSH ASDIRECTED PRN Keep Vein Open Tramadol HCl 50 mg 09/28/17 08:00 Ultram PO TID [facility] Discontinued Medications Generic Name Dose Route Start Last Admin Trade Name Freq PRN Reason Stop Dose Admin Cholecalciferol 1,000 units 09/28/17 12:00 Vitamin D3 PO DAILY@1200 [facility] Diltiazem HCl 20 mg 09/27/17 17:37 09/27/17 17:39 Diltiazem IVPUSH 09/27/17 17:38 20 mg ONETIME ONE Administration Diltiazem HCl 120 mg 09/27/17 17:38 09/27/17 17:52 Cardizem Cd PO 09/27/17 17:39 120 mg ONETIME ONE Administration Gabapentin 600 mg 09/27/17 20:00 Neurontin PO TID [facility] Insulin Glargine 20 units 09/27/17 20:00 Lantus Solostar SUBCUT BEDTIME [facility] Levalbuterol HCl 1.25 mg 09/27/17 19:14 09/27/17 19:45 Xopenex NEB 09/27/17 19:15 1.25 mg ONETIME ONE Administration Lorazepam 0.5 mg 09/27/17 19:04 Ativan PO Q6H PRN Anxiety Melatonin Confirm 09/27/17 23:10 09/28/17 00:36 Melatonin Administered 09/27/17 23:11 Not Given Dose 6 mg .ROUTE .STK-MED ONE Morphine Sulfate Confirm 09/27/17 17:48 09/27/17 18:16 Morphine Administered 09/27/17 17:49 Not Given Dose 10 mg .ROUTE .STK-MED ONE Morphine Sulfate Confirm 09/28/17 06:42 09/28/17 06:55 Morphine Administered 09/28/17 06:43 Not Given Dose 10 mg .ROUTE .STK-MED ONE Nitroglycerin 0.4 mg 09/27/17 17:44 09/28/17 07:07 Nitrostat SL 0.4 mg Q5M PRN Administration Chest Pain Tramadol HCl 75 mg 09/27/17 20:00 Ultram PO QID [facility] - Re-Assessments/Exams Free Text/Narrative Re-Assessment/Exam: 09/27/17 19:23 Will admit for chest pain and SVT. Pt states she took her AM dose of Cardizem and Digoxin. Pulse slowed with Cardizem 20 mg IV and PO Cardizem CD 120mg. Chest pain resolved with MS. Will recheck troponin in am. She was started on clindamycin yesterday for a sinus infection. Will continue Clindamycin PO. WBC has improved. Pt states she has tried to take her Clindamycin at home and just couldn't get it down. States little appetite. Departure - Departure Time of Disposition: 19:05 Disposition: Admitted As Inpatient 67 Condition: Fair Clinical Impression: Chest pain, Diabetes type 2, controlled, Tracheostomy in place, COPD (chronic obstructive pulmonary disease), Atrial fibrillation by electrocardiogram - Discharge Information - Problem List & Annotations (1) Chest pain SNOMED Code(s): 64429241 Code(s): R07.9 - CHEST PAIN, UNSPECIFIED Status: Acute Current Visit: Yes (2) COLD, Chronic obstructive lung disease SNOMED Code(s): 16736238 Code(s): J44.9 - CHRONIC OBSTRUCTIVE PULMONARY DISEASE, UNSPECIFIED Status : Chronic Priority: High Current Visit: No Onset Date: Unknown Annotation/Comment:: 11/14/2014 patient was given a nebulizer on the ambulance and she doesnt seem in distress. Blood gases done via venous with ph 7.42 and pco2 67, po2 43.6 At this time will continue with normal meds as at home. (3) Diabetes type 2, controlled SNOMED Code(s): 31376175 Code(s): E11.9 - TYPE 2 DIABETES MELLITUS WITHOUT COMPLICATIONS Status: Acute Current Visit: Yes (4) Tracheostomy in place SNOMED Code(s): 782762247 Code(s): Z93.0 - TRACHEOSTOMY STATUS Status: Acute Current Visit: Yes (5) Atrial fibrillation by electrocardiogram SNOMED Code(s): 110970602 Code(s): I48.91 - UNSPECIFIED ATRIAL FIBRILLATION Status: Acute Current Visit: Yes - Problem List Review Problem List Initiated/Reviewed/Updated: Yes - My Orders Last 24 Hours: My Active Orders 09/27/17 17:19 EKG Documentation Completion [RC] ASDIRECTED 09/27/17 17:43 Morphine 2 mg IVPUSH Q1H PRN 09/27/17 18:42 Admission Diagnosis [ADT] Stat 09/27/17 18:43 Bedrest Bedside Commode [RC] ASDIRECTED 09/27/17 18:44 Patient Status [ADT] Routine Oxygen Therapy [RC] PRN Vital Signs [RC] Q4H 09/27/17 23:00 URINALYSIS W/MICROSCOPIC [UA W/MICROSCOPIC] [URIN] Stat 09/28/17 Breakfast Heart Healthy Diet [DIET] - Assessment/Plan Last 24 Hours: My Active Orders 09/27/17 17:19 EKG Documentation Completion [RC] ASDIRECTED 09/27/17 17:43 Morphine 2 mg IVPUSH Q1H PRN 09/27/17 18:42 Admission Diagnosis [ADT] Stat 09/27/17 18:43 Bedrest Bedside Commode [RC] ASDIRECTED 09/27/17 18:44 Patient Status [ADT] Routine Oxygen Therapy [RC] PRN Vital Signs [RC] Q4H 09/27/17 23:00 URINALYSIS W/MICROSCOPIC [UA W/MICROSCOPIC] [URIN] Stat 09/28/17 Breakfast Heart Healthy Diet [DIET] Plan: Will admit with chest pain and Atrial fibrillation with rapid response. Cardizem 20mg IV X 1. Increase PO Cardizem CD 360 mg daily. MS 2mg IV as needed for chest pain. Nitro SL prn chest pain. Repeat labs in am. Diabetes Type 2: Continue Glargine as at home Sliding scale tid ac and hs. consistent carb diet. COPD: O2 to maintain oxygen 92% per tracheostomy Medications as at home. xopenix X 1 neb. If heart rate controlled, may change to nebulizer as at home. Sinus infection: Clindamycin as ordered.
[2017-09-27] MEDS: Nitroglycerin 0.4 MG Tab.SL SL PRN (17:23)
[2017-09-27] MEDS ORDERED: Diltiazem 25 MG/5 ML SDV IVPUSH ONE (17:37)
[2017-09-27] MEDS ORDERED: Diltiazem 120 MG Cap.CD PO ONE (17:38)
[2017-09-27] MEDS: Morphine 2 MG/ML Syringe IVPUSH PRN (17:46)
[2017-09-27] MEDS ORDERED: Morphine 10 MG/ML Syringe ONE (17:48)
[2017-09-27] MEDS ORDERED: LORazepam 0.5 MG Tab PO PRN (19:04)
[2017-09-27] MEDS ORDERED: Levalbuterol HCl 1.25 MG/0.5 ML Neb NEB ONE (19:14)
--- NOTE | 2017-09-27 19:16 | CR ---
DATE OF SERVICE: 09/27/17 CLINICAL DATA: chest pain AP PORTABLE CHEST: Comparison is made to a prior exam dated 08/22/17. The patient has taken a poor inspiration. The tracheostomy tube remains unchanged in position. The heart size is stable. There are minimal atelectatic changes in both lower lungs. The lungs are otherwise clear. No pneumothorax. The remainder of the exam is unchanged from the prior. [id number] [facility]
[2017-09-27] MEDS ORDERED: traMADol 50 MG Tab PO SCH (20:00)
[2017-09-27] MEDS ORDERED: Non-Formulary Medication 1 Each (Melatonin [Melatonin] 5 MG) PO SCH (20:00)
[2017-09-27] MEDS ORDERED: Insulin Glargine,Human Rec. Analog 100 Units/ML 3 ML Pen SUBCUT SCH (20:00)
[2017-09-27] MEDS ORDERED: Gabapentin 300 MG Cap PO SCH (20:00)
[2017-09-27] MEDS ORDERED: Albuterol 0.083% 2.5 MG/3 ML Neb Soln INH SCH (20:00)
[2017-09-27] MEDS: Albuterol/Ipratropium 3.0-0.5 MG/3 ML Neb Soln NEB SCH (22:34)
[2017-09-27] MEDS: Desvenlafaxine 50 MG Tab.ER PO SCH (22:35)
[2017-09-27] MEDS: Gabapentin 300 MG Cap PO SCH (22:35)
[2017-09-27] MEDS: LORazepam 0.5 MG Tab PO PRN (22:35)
[2017-09-27] MEDS: Insulin Detemir 100 Units/ML 3 ML Pen SUBCUT SCH (22:55)
[2017-09-27] MEDS: Acetylcysteine 20% 200 MG/ML 30 ML Nebulizer Soln SDV NEB SCH (23:03)
[2017-09-27] MEDS: Acetaminophen 500 MG Tab PO SCH (23:06)
[2017-09-27] MEDS ORDERED: Melatonin 3 MG Tab ONE (23:10)
[2017-09-27] MEDS: QUEtiapine 25 MG Tab PO SCH (23:17)
[2017-09-28] MEDS: Albuterol/Ipratropium 3.0-0.5 MG/3 ML Neb Soln NEB SCH ×4 (03:09→19:40)
[2017-09-28] MEDS: Acetylcysteine 20% 200 MG/ML 30 ML Nebulizer Soln SDV NEB SCH ×4 (03:09→19:40)
[2017-09-28] MEDS: Nitroglycerin 0.4 MG Tab.SL SL PRN ×2 (06:30→07:07)
[2017-09-28] MEDS ORDERED: Morphine 10 MG/ML Syringe ONE ×3 (06:42→20:08)
[2017-09-28] MEDS: Morphine 2 MG/ML Syringe IVPUSH PRN ×3 (06:47→20:19)
[2017-09-28] MEDS: Sodium Chloride 0.9% 10 ML Syringe FLUSH PRN (07:25)
[2017-09-28] MEDS ORDERED: Diltiazem 25 MG/5 ML SDV IVPUSH ONE ×2 (07:27→08:45)
[2017-09-28] MEDS ORDERED: Diltiazem 240 MG Cap.CD ONE (07:43)
[2017-09-28] MEDS: Diltiazem 240 MG Cap.CD PO SCH (07:45)
[2017-09-28] MEDS ORDERED: Non-Formulary Medication 1 Each (Umeclidinium Bromide [Incruse Ellipta] 1 PUFF) IH SCH (08:00)
[2017-09-28] MEDS ORDERED: predniSONE 5 MG Tab PO ONE (08:00)
[2017-09-28] MEDS: Tiotropium Inhaler 18 MCG Inhalation Powder Cap Kit of 5 INH SCH (08:00)
[2017-09-28] MEDS ORDERED: DILTIAZEM 240 MG PO SCH (08:00)
[2017-09-28] MEDS: Omeprazole 20 MG Cap.CR PO SCH (08:40)
--- NOTE | 2017-09-28 08:44 | PCM.PN ---
- General Info Date of Service: 09/28/17 Admission Dx/Problem (Free Text): chest pain, Atrial Fibrillation Functional Status: Reports: Tolerating Diet, Urinating - Review of Systems General: Reports: Weakness HEENT: Reports: Headaches Pulmonary: Reports: Cough Cardiovascular: Reports: Dyspnea on Exertion Gastrointestinal: Reports: Decreased Appetite Genitourinary: Reports: No Symptoms Musculoskeletal: Reports: Back Pain Skin: Reports: No Symptoms Neurological: Reports: No Symptoms Psychiatric: Reports: No Symptoms - Patient Data Vitals - Most Recent: Last Vital Signs Temp 97.1 F 09/28/17 00:17 Pulse 91 09/28/17 00:17 Resp 30 H 09/28/17 04:00 BP 123/82 09/28/17 07:07 Pulse Ox 91 L 09/28/17 00:17 Weight - Most Recent: 180 lb I&O - Last 24 Hours: Intake & Output 09/27/17 09/28/17 09/28/17 22:59 06:59 14:59 Intake Total 300 Balance 300 Lab Results Last 24 Hours: Laboratory Results - last 24 hr 09/27/17 09/27/17 09/28/17 Range/Units 21:56 23:00 06:48 WBC (4.0-11.0) K/uL RBC (3.80-5.80) M/uL Hgb (11.5-16.5) g/dL Hct (37.0-47.0) % MCV (76-96) fL MCH (27.0-32.0) pg MCHC (31.0-35.0) g/dL RDW (11.0-16.0) % Plt Count (150-500) K/uL MPV (6.0-10.0) fL Neut % (Auto) (45.0-70.0) % Lymph % (Auto) (20.0-40.0) % [place] % (Auto) (3.0-10.0) % Eos % (Auto) (1.0-5.0) % Baso % (Auto) (0.0-0.5) % Neut # (Auto) (2.00-7.50) K/uL Lymph # (Auto) (1.50-4.00) K/uL [place] # (Auto) (0.20-0.80) K/uL Eos # (Auto) (0.04-0.40) K/uL Baso # (Auto) (0.02-0.10) K/uL Sodium (136-145) mmol/L Potassium (3.5-5.1) mmol/L Chloride (98-107) mmol/L Carbon Dioxide (21.0-32.0) mmol/L Anion Gap (5.0-15.0) mmol/L BUN (8-26) mg/dL Creatinine (0.55-1.02) mg/dL Est Cr Clr Drug Dosing Estimated GFR (MDRD) (>60) MLS/MIN BUN/Creatinine Ratio (6-25) Glucose (74-100) mg/dL POC Glucose 162 H 201 H (74-110) mg/dL Calcium (8.5-10.1) mg/dL Troponin I (0.000-0.060) ng/mL Urine Color Yellow Urine Appearance Clear (CLEAR) Urine pH 6.0 (5.0-8.0) Ur Specific [place] 1.015 (1.003-1.030) Urine Protein Negative (NEGATIVE) mg/dL Urine Glucose (UA) Negative (NEGATIVE) mg/dL Urine Ketones Trace H (NEGATIVE) mg/dL Urine Occult Blood Trace-intact H (NEGATIVE) Urine Nitrite Negative (NEGATIVE) Urine Bilirubin Small H (NEGATIVE) Urine Urobilinogen 0.2 (0.2-1.0) E.U./dL Ur Leukocyte Esterase Negative (NEGATIVE) Urine RBC 0-5 H /HPF Urine WBC Not seen /HPF Ur Squamous Epith Cells Few /HPF Urine Bacteria Few /HPF 09/28/17 09/28/17 Range/Units 07:30 07:30 WBC 19.5 H D (4.0-11.0) K/uL RBC 4.26 (3.80-5.80) M/uL Hgb 12.0 (11.5-16.5) g/dL Hct 38.2 (37.0-47.0) % MCV 90 (76-96) fL MCH 28.2 (27.0-32.0) pg MCHC 31.4 (31.0-35.0) g/dL RDW 14.3 (11.0-16.0) % Plt Count 394 (150-500) K/uL MPV 9.2 (6.0-10.0) fL Neut % (Auto) 80.8 H (45.0-70.0) % Lymph % (Auto) 8.9 L (20.0-40.0) % [place] % (Auto) 9.8 (3.0-10.0) % Eos % (Auto) 0.2 L (1.0-5.0) % Baso % (Auto) 0.3 (0.0-0.5) % Neut # (Auto) 15.71 H (2.00-7.50) K/uL Lymph # (Auto) 1.74 (1.50-4.00) K/uL [place] # (Auto) 1.91 H (0.20-0.80) K/uL Eos # (Auto) 0.04 (0.04-0.40) K/uL Baso # (Auto) 0.06 (0.02-0.10) K/uL Sodium 143 (136-145) mmol/L Potassium 3.4 L D (3.5-5.1) mmol/L Chloride 96 L (98-107) mmol/L Carbon Dioxide 42.4 H (21.0-32.0) mmol/L Anion Gap 8.0 (5.0-15.0) mmol/L BUN 22 (8-26) mg/dL Creatinine 1.40 H (0.55-1.02) mg/dL Est Cr Clr Drug Dosing TNP Estimated GFR (MDRD) 38 L (>60) MLS/MIN BUN/Creatinine Ratio 15.7 (6-25) Glucose 195 H (74-100) mg/dL POC Glucose (74-110) mg/dL Calcium 8.6 (8.5-10.1) mg/dL Troponin I 0.034 D (0.000-0.060) ng/mL Urine Color Urine Appearance (CLEAR) Urine pH (5.0-8.0) Ur Specific [place] (1.003-1.030) Urine Protein (NEGATIVE) mg/dL Urine Glucose (UA) (NEGATIVE) mg/dL Urine Ketones (NEGATIVE) mg/dL Urine Occult Blood (NEGATIVE) Urine Nitrite (NEGATIVE) Urine Bilirubin (NEGATIVE) Urine Urobilinogen (0.2-1.0) E.U./dL Ur Leukocyte Esterase (NEGATIVE) Urine RBC /HPF Urine WBC /HPF Ur Squamous Epith Cells /HPF Urine Bacteria /HPF Med Orders - Current: Current Medications Acetaminophen (Tylenol Extra Strength) 1,[address] [facility] Last Admin: 09/27/17 23:06 Dose: Not Given Acetylcysteine (Mucomyst 20%) [address] [facility] Last Admin: 09/28/17 03:09 Dose: Not Given Albuterol (Proventil Neb Soln) 2.[address] [facility] Last Admin: 09/27/17 22:34 Dose: 2.5 mg Albuterol/Ipratropium (Duoneb 3.0-0.5 Mg/3 Ml) [address] [facility] Last Admin: 09/28/17 07:34 Dose: Not Given Cholecalciferol (Vitamin D3) 2,000 units PO DAILY@1200 [facility] Clindamycin HCl (Cleocin) [address] [facility] Last Admin: 09/28/17 06:50 Dose: 300 mg Desvenlafaxine Succinate (Pristiq) [address] [facility] Last Admin: 09/27/17 22:35 Dose: 50 mg Digoxin (Lanoxin) [address] [facility] Diltiazem HCl (Cardizem Cd) [address] [facility] Fluticasone Propionate (Flonase) [address] [facility] Furosemide (Lasix) [address] [facility] Gabapentin (Neurontin) [address] [facility] Last Admin: 09/27/17 22:35 Dose: 300 mg Guaifenesin (Mucinex) [address] [facility] Insulin Aspart (Novolog) [address] [facility] PRN Reason: Protocol Insulin Detemir (Levemir) [address] [facility] Last Admin: 09/27/17 22:55 Dose: 10 units Lorazepam (Ativan) 0.5 mg PO BID PRN PRN Reason: Anxiety Last Admin: 09/27/17 22:35 Dose: 0.5 mg Melatonin (Melatonin) [address] [facility] Montelukast Sodium (Singulair) 10 mg PO DAILY@1200 [facility] Morphine Sulfate (Morphine) 2 mg IVPUSH Q1H PRN PRN Reason: Chest Pain Last Admin: 09/28/17 06:47 Dose: 2 mg Multivitamins/Minerals/Vitamin C (Childrens Chewable Vitamin) 1 tab PO DAILY@ 1200 [facility] Nicotine (Habitrol) [address] [facility] Non-Formulary Medication (Umeclidinium [place] [Incruse Ellipta]) [address] [facility] Omeprazole (Omeprazole) [address] [facility] Prednisone (Prednisone) 20 mg PO ONETIME ONE Stop: 09/29/17 08:01 Prednisone (Prednisone) 15 mg PO ONETIME ONE Stop: 09/30/17 08:01 Prednisone (Prednisone) 20 mg PO ONETIME ONE Stop: 10/01/17 08:01 Prednisone (Prednisone) 10 mg PO DAILY [facility] Stop: 10/08/17 08:01 Quetiapine Fumarate (Seroquel) 12.[address] [facility] Quetiapine Fumarate (Seroquel) [address] [facility] Last Admin: 09/27/17 23:17 Dose: 25 mg Roflumilast (Daliresp) [address] [facility] Senna/Docusate Sodium (Senna Plus) [address] [facility] Last Admin: 09/27/17 22:36 Dose: 1 tab Sodium Chloride (Saline Flush) 10 ml FLUSH ASDIRECTED PRN PRN Reason: Keep Vein Open Tramadol HCl (Ultram) [address] [facility] Discontinued Medications Cholecalciferol (Vitamin D3) 1,000 units PO DAILY@1200 [facility] Diltiazem HCl (Diltiazem) 20 mg IVPUSH ONETIME ONE Stop: 09/27/17 17:38 Last Admin: 09/27/17 17:39 Dose: 20 mg Diltiazem HCl (Cardizem Cd) 120 mg PO ONETIME ONE Stop: 09/27/17 17:39 Last Admin: 09/27/17 17:52 Dose: 120 mg Diltiazem HCl (Diltiazem) 20 mg IVPUSH ONETIME ONE Stop: 09/28/17 07:28 Diltiazem HCl (Cardizem Cd) Confirm Administered Dose 240 mg .ROUTE .STK-MED ONE Stop: 09/28/17 07:44 Gabapentin (Neurontin) [address] [facility] Insulin Glargine (Lantus Solostar) [address] [facility] Levalbuterol HCl (Xopenex) 1.25 mg NEB ONETIME ONE Stop: 09/27/17 19:15 Last Admin: 09/27/17 19:45 Dose: 1.25 mg Lorazepam (Ativan) 0.5 mg PO Q6H PRN PRN Reason: Anxiety Melatonin (Melatonin) Confirm Administered Dose 6 mg .ROUTE .STK-MED ONE Stop: 09/27/17 23:11 Last Admin: 09/28/17 00:36 Dose: Not Given Morphine Sulfate (Morphine) Confirm Administered Dose 10 mg .ROUTE .STK-MED ONE Stop: 09/27/17 17:49 Last Admin: 09/27/17 18:16 Dose: Not Given Morphine Sulfate (Morphine) Confirm Administered Dose 10 mg .ROUTE .STK-MED ONE Stop: 09/28/17 06:43 Last Admin: 09/28/17 06:55 Dose: Not Given Nitroglycerin (Nitrostat) 0.4 mg SL Q5M PRN PRN Reason: Chest Pain Last Admin: 09/28/17 07:07 Dose: 0.4 mg Non-Formulary Medication (Diltiazem [Tiazac]) [address] [facility] Last Admin: 09/28/17 07:44 Dose: 240 mg Non-Formulary Medication (Melatonin [Melatonin]) [address] [facility] Last Admin: 09/27/17 23:15 Dose: 5 mg Prednisone (Prednisone) 15 mg PO ONETIME ONE Stop: 09/28/17 08:01 Tramadol HCl (Ultram) [address] [facility] - Exam Quality Assessment: Supplemental Oxygen General: Alert, Oriented HEENT: Mucous Membr. Moist/[place] Neck: Supple Lungs: Normal Respiratory Effort, Rhonchi Cardiovascular: Irregular Rhythm, Tachycardia GI/Abdominal Exam: Soft, Non-Tender Extremities: No Pedal Edema, Normal Capillary Refill Peripheral Pulses: 2+: Dorsalis Pedis (L), Dorsalis Pedis (R) Skin: Warm, Dry Neurological: No New Focal Deficit Psy/Mental Status: Alert, Normal Affect, Normal Mood - Problem List & Annotations (1) Chest pain SNOMED Code(s): 31694513 Code(s): R07.9 - CHEST PAIN, UNSPECIFIED Status: Acute Current Visit: Yes (2) COLD, Chronic obstructive lung disease SNOMED Code(s): 83279551 Code(s): J44.9 - CHRONIC OBSTRUCTIVE PULMONARY DISEASE, UNSPECIFIED Status : Chronic Priority: High Current Visit: No Onset Date: Unknown Annotation/Comment:: 11/14/2014 patient was given a nebulizer on the ambulance and she doesnt seem in distress. Blood gases done via venous with ph 7.42 and pco2 67, po2 43.6 At this time will continue with normal meds as at home. (3) Diabetes type 2, controlled SNOMED Code(s): 54423720 Code(s): E11.9 - TYPE 2 DIABETES MELLITUS WITHOUT COMPLICATIONS Status: Acute Current Visit: Yes (4) Tracheostomy in place SNOMED Code(s): 389748061 Code(s): Z93.0 - TRACHEOSTOMY STATUS Status: Acute Current Visit: Yes (5) Atrial fibrillation by electrocardiogram SNOMED Code(s): 900494086 Code(s): I48.91 - UNSPECIFIED ATRIAL FIBRILLATION Status: Acute Current Visit: Yes - Problem List Review Problem List Initiated/Reviewed/Updated: Yes - My Orders Last 24 Hours: My Active Orders 09/27/17 19:00 Clindamycin HCl [Cleocin] 300 mg PO Q6H 09/27/17 19:15 Acetylcysteine [Mucomyst 20%] 600 mg NEB Q6H Albuterol/Ipratropium [DuoNeb 3.0-0.5 MG/3 ML] 3 ml NEB Q6H 09/27/17 19:38 Sodium Chloride 0.9% [Saline Flush] 10 ml FLUSH ASDIRECTED PRN Saline Lock Insert [OM.PC] Routine 09/27/17 20:00 Acetaminophen [Tylenol Extra Strength] 1,000 mg PO TID Albuterol [Proventil Neb Soln] 2.5 mg INH QID Desvenlafaxine [Pristiq] 50 mg PO QPM Docusate Sodium/Sennosides [Senna Plus] 1 tab PO BID QUEtiapine [SEROquel] 25 mg PO BEDTIME 09/27/17 22:02 Gabapentin [Neurontin] 300 mg PO TID LORazepam [Ativan] 0.5 mg PO BID PRN 09/28/17 07:00 Omeprazole 20 mg PO ACBRK 09/28/17 07:08 Telemetry Monitoring [Cardiac Monitoring] [RC] .As Directed 09/28/17 07:30 CULTURE MRSA SURVEY [RM] Routine 09/28/17 08:00 Digoxin [Lanoxin] 125 mcg PO DAILY Diltiazem [Cardizem CD] 240 mg PO DAILY Fluticasone Propionate [Flonase] 0 gm NASBOTH DAILY Furosemide [Lasix] 40 mg PO DAILY Insulin Aspart [NovoLOG] See Protocol SUBCUT TIDMEALS Insulin Detemir [Levemir] 10 unit SUBCUT BID Nicotine [Habitrol] 14 mg TRDERM DAILY QUEtiapine [SEROquel] 12.5 mg PO DAILY Roflumilast [Daliresp] 500 mcg PO DAILY Umeclidinium [place] [Incruse Ellipta] 1 puff IH DAILY guaiFENesin [Mucinex] 600 mg PO BID traMADol [Ultram] 50 mg PO TID 09/28/17 12:00 Cholecalciferol (Vitamin D3) [Vitamin D3] 2,000 units PO DAILY@1200 Montelukast [Singulair] 10 mg PO DAILY@1200 Multivitamins [Childrens Chewable Vitamin] 1 tab PO DAILY@1200 09/28/17 Breakfast Consistent Carbohydrate Diet [DIET] 09/29/17 08:00 Melatonin 3 mg PO DAILY predniSONE 20 mg PO ONETIME ONE 09/30/17 08:00 predniSONE 15 mg PO ONETIME ONE 10/01/17 08:00 predniSONE 20 mg PO ONETIME ONE 10/02/17 08:00 predniSONE 10 mg PO DAILY - Plan Plan:: 09:00 Pt slept for part of night with heart rate stable. Early am heart rate increase to 140-150 and pt having chest pain. Consult with Dr Olvera and medications repeated: Cardizem 20 mg IV repeated, heart rate stabilized and then increased Cardizem 25 mg IV given. Cardizem CD 360 mg total given this am. Pt sitting in chair and eating small amount of breakfast. 11:30 Discussed pt status with Dr Clark, cardiology, [facility]. States to give Metoprolol tartrate 25 mg PO and repeat in 3 hr if heart rate elevates. May repeat Metoprolol 25 mg PO every 6 hr for heart rate control. Will check d-dimer for potential PE. May be elevated with COPD. Pt states she is achy all over. Pt stable and in no acute distress. Heart rate decrease to 112 after 20 minutes. Pt/INR and Ptt levels to be drawn now 12:00. Will start heparin qtt based on levels. Pt to be transferred to [facility], when hospital bed available. 18:20 Heart rate has been 80-90 this [address] Consult with Dr Olvera, with heart rate controlled and D-dimer negative, will D'c Heparin, start Coumadin and start Lovenox 80 q 12 hr. Will check Pt/INR in am. Pt stable and feeling better. Pt did sleep this afternoon.
[2017-09-28] MEDS: Roflumilast 500 MCG Tab PO SCH (08:59)
[2017-09-28] MEDS: Fluticasone Propionate Nasal Spray 16 GM Bottle NASBOTH SCH (08:59)
[2017-09-28] MEDS: Digoxin 125 MCG Tab PO SCH (09:00)
[2017-09-28] MEDS ORDERED: Diltiazem 120 MG Cap.CD ONE (09:00)
[2017-09-28] MEDS ORDERED: Diltiazem 120 MG Cap.CD PO ONE (09:01)
[2017-09-28] MEDS: guaiFENesin 600 MG Tab.ER PO SCH ×2 (09:01→20:17)
[2017-09-28] MEDS: Furosemide 40 MG Tab PO SCH (09:01)
[2017-09-28] MEDS: Gabapentin 300 MG Cap PO SCH ×3 (09:02→20:15)
[2017-09-28] MEDS: QUEtiapine 25 MG Tab PO SCH ×2 (09:03→20:16)
[2017-09-28] MEDS: traMADol 50 MG Tab PO SCH ×3 (09:05→20:15)
[2017-09-28] MEDS: Acetaminophen 500 MG Tab PO SCH ×3 (09:17→20:55)
[2017-09-28] MEDS: Insulin Aspart 100 Units/ML 3 ML Pen SUBCUT SCH ×3 (09:19→17:59)
[2017-09-28] MEDS: Insulin Detemir 100 Units/ML 3 ML Pen SUBCUT SCH ×2 (09:21→20:20)
[2017-09-28] MEDS ORDERED: Levalbuterol HCl 1.25 MG/0.5 ML Neb ONE (09:23)
[2017-09-28] MEDS: Levalbuterol HCl 1.25 MG/0.5 ML Neb NEB SCH ×4 (09:30→20:17)
[2017-09-28] MEDS: Nicotine 14 MG/24 Hr Patch TRDERM SCH (09:36)
[2017-09-28] MEDS ORDERED: Metoprolol Tartrate 25 MG Tab PO ONE (11:29)
[2017-09-28] MEDS ORDERED: Cholecalciferol (Vitamin D3) 1,000 Unit Tab PO SCH (12:00)
[2017-09-28] MEDS: Montelukast 10 MG Tab PO SCH (12:01)
[2017-09-28] MEDS: Cholecalciferol (Vitamin D3) 1,000 Unit Tab PO SCH (12:01)
[2017-09-28] MEDS: Multivitamin, Childrens Tab.Chew PO SCH (12:01)
[2017-09-28] MEDS ORDERED: Heparin Sodium 5,000 UNITS/0.5 ML Syringe IVPUSH ONE (12:02)
[2017-09-28] MEDS ORDERED: Heparin Sodium/D5W 25,000 UNITS/500 ML BAG IV SCH (12:15)
[2017-09-28] MEDS: Morphine 10 MG/ML Syringe ONE ×2 (12:52→12:54)
[2017-09-28] MEDS ORDERED: Heparin Sodium 5,000 UNITS/0.5 ML Syringe IVPUSH SCH (13:12)
[2017-09-28] MEDS ORDERED: Heparin Sodium 5,000 Units/ML Vial ONE (13:22)
[2017-09-28] MEDS ORDERED: Warfarin 2 MG Tab PO ONE (16:22)
[2017-09-28] MEDS ORDERED: Warfarin 2 MG Tab ONE (17:25)
[2017-09-28] MEDS: Desvenlafaxine 50 MG Tab.ER PO SCH (20:15)
[2017-09-28] MEDS: Metoprolol Tartrate 25 MG Tab PO SCH (20:15)
[2017-09-29] MEDS: Enoxaparin 80 MG/0.8 ML Syringe SUBCUT SCH ×3 (01:00→14:26)
[2017-09-29] MEDS: Albuterol/Ipratropium 3.0-0.5 MG/3 ML Neb Soln NEB SCH ×3 (03:32→13:15)
[2017-09-29] MEDS: Acetylcysteine 20% 200 MG/ML 30 ML Nebulizer Soln SDV NEB SCH ×3 (03:33→13:15)
[2017-09-29] MEDS: LORazepam 0.5 MG Tab PO PRN (05:36)
[2017-09-29] MEDS: Morphine 2 MG/ML Syringe IVPUSH PRN ×2 (05:47→17:58)
[2017-09-29] MEDS: Omeprazole 20 MG Cap.CR PO SCH (07:16)
[2017-09-29] MEDS: Levalbuterol HCl 1.25 MG/0.5 ML Neb NEB SCH ×3 (07:21→16:48)
[2017-09-29] MEDS: Digoxin 125 MCG Tab PO SCH (07:27)
[2017-09-29] MEDS: Diltiazem 240 MG Cap.CD PO SCH (07:29)
[2017-09-29] MEDS: traMADol 50 MG Tab PO SCH ×2 (07:30→14:25)
[2017-09-29] MEDS: guaiFENesin 600 MG Tab.ER PO SCH (07:32)
[2017-09-29] MEDS: QUEtiapine 25 MG Tab PO SCH (07:32)
[2017-09-29] MEDS: Roflumilast 500 MCG Tab PO SCH (07:33)
[2017-09-29] MEDS: Furosemide 40 MG Tab PO SCH (07:34)
[2017-09-29] MEDS: Gabapentin 300 MG Cap PO SCH ×2 (07:34→14:24)
[2017-09-29] MEDS: Metoprolol Tartrate 25 MG Tab PO SCH (07:35)
[2017-09-29] MEDS: Acetaminophen 500 MG Tab PO SCH ×2 (07:38→14:00)
[2017-09-29] MEDS: Nicotine 14 MG/24 Hr Patch TRDERM SCH (08:00)
[2017-09-29] MEDS ORDERED: Melatonin 3 MG Tab PO SCH (08:00)
[2017-09-29] MEDS: Tiotropium Inhaler 18 MCG Inhalation Powder Cap Kit of 5 INH SCH (08:00)
[2017-09-29] MEDS ORDERED: predniSONE 20 MG Tab PO ONE (08:00)
[2017-09-29] MEDS: Fluticasone Propionate Nasal Spray 16 GM Bottle NASBOTH SCH (08:20)
[2017-09-29] MEDS: Insulin Detemir 100 Units/ML 3 ML Pen SUBCUT SCH (08:21)
[2017-09-29] MEDS: Insulin Aspart 100 Units/ML 3 ML Pen SUBCUT SCH ×3 (08:24→17:51)
[2017-09-29] MEDS: Sodium Chloride 0.9% 10 ML Syringe FLUSH PRN (08:32)
[2017-09-29 11:32] VITALS: BP 102/47
[2017-09-29] MEDS: Cholecalciferol (Vitamin D3) 1,000 Unit Tab PO SCH (12:26)
[2017-09-29] MEDS: Multivitamin, Childrens Tab.Chew PO SCH (12:26)
[2017-09-29] MEDS: Montelukast 10 MG Tab PO SCH (12:26)
--- NOTE | 2017-09-29 14:13 | PCM.DCSUM1 ---
Discharge Summary - Hospital Course HPI Initial Comments: 62 yr female presented to ER per ambulance with Atrial fibrillation with rapid rate 140-150. Cardizem IV given and Cardizem CD PO 120mg given. Pt stated she had taken her Rx as prescribed at home. She does take Digoxin, as well. Digoxin level was normal. Heart rate did slow with the Cardizem IV. She also was having chest pain with this. ASA was given in ambulance. Nitro was given in ER, as well as MS with relief of chest pain. EKG completed noting atrial fib w Rapid rate. Pt was admitted to [facility]. Consulted with Dr Clark the following day as pt continued with episodes of Atrial fibrillation with rapid rate of 140-150 and pt having some chest heaviness with this. Troponins remained negative. Dr Clark, cardiology [facility], suggested Metoprolol tartrate 25 mg PO. After first dose of Metroprolol heart rate decreased to 80-90 and has remained there. Rhonchii to lung sounds noted, with good air movement noted, and no wheezing noted. Dr Clark also recommended pt to start on Heparin qtt during her stay and transition to Coumadin. Pt was transitioned to Lovenox per Dr Wade MD recommendation 80 q 12 hr and Coumadin started at 2 mg PO daily. CBC was elevated, however, pt has been taking a prednisone taper and this may attribute to some of this. Pt was diagnosed earlier in the week with a sinus infection and was started on Clindamycin. She should continue on this at home and has this Rx filled already. Will increase omeprazole to 20 mg PO bid, add Metoprolol 25 mg PO bid, Coumadin 2mg PO daily and have PT/INR rechecked tomorrow at coumadin clinic. Pt will continue with Lovenox 80 bid SQ and alternate injection sites. Pt to F/U with her PCP next week. - Discharge Data Discharge Date: 09/29/17 Discharge Disposition: Home, Self-Care 01 Condition: Good - Discharge Diagnosis/Problem(s) (1) Chest pain SNOMED Code(s): 83880211 ICD Code: R07.9 - CHEST PAIN, UNSPECIFIED Status: Resolved Current Visit : Yes (2) COLD, Chronic obstructive lung disease SNOMED Code(s): 26185234 ICD Code: J44.9 - CHRONIC OBSTRUCTIVE PULMONARY DISEASE, UNSPECIFIED Status : Chronic Priority: High Current Visit: No Onset Date: Unknown Problem Details: 11/14/2014 patient was given a nebulizer on the ambulance and she doesnt seem in distress. Blood gases done via venous with ph 7.42 and pco2 67, po2 43.6 At this time will continue with normal meds as at home. (3) Diabetes type 2, controlled SNOMED Code(s): 36393756 ICD Code: E11.9 - TYPE 2 DIABETES MELLITUS WITHOUT COMPLICATIONS Status: Acute Current Visit: Yes (4) Tracheostomy in place SNOMED Code(s): 111252051 ICD Code: Z93.0 - TRACHEOSTOMY STATUS Status: Acute Current Visit: Yes (5) Atrial fibrillation by electrocardiogram SNOMED Code(s): 975689707 ICD Code: I48.91 - UNSPECIFIED ATRIAL FIBRILLATION Status: Acute Current Visit: Yes - Patient Instructions Diet: Diabetic Diet Activity: As Tolerated Driving: Do Not Drive Showering/Bathing: May Shower Notify Provider of: Fever, Increased Pain - Discharge Plan Prescriptions/Med Rec: Metoprolol Tartrate [Lopressor] 25 mg PO Q12HR 30 Days #60 tab Enoxaparin [Lovenox] 80 mg SQ BID 5 Days #10 syringe Insulin Detemir [Levemir] 10 unit SQ BID #7 pen Warfarin [Coumadin] 2 mg PO DAILY 30 Days #30 tab Home Medications: Home Meds Montelukast Sodium [Singulair] 10 mg PO DAILY@1200 10/02/14 [History] guaiFENesin [Mucinex] 600 mg PO BID 10/02/14 [History] Omeprazole 20 mg PO BID 11/04/14 [History] predniSONE 20 mg PO DAILY 11/04/14 [History] Cholecalciferol (Vitamin D3) [Vitamin D3] 2,000 units PO DAILY@1200 06/04/15 [ History] Fluticasone Propionate [Flonase] 1 spray NASBOTH DAILY 06/04/15 [History] Desvenlafaxine [Pristiq] 50 mg PO QPM 01/03/16 [History] traMADol [Ultram] 50 mg PO TID 01/03/16 [History] Melatonin 5 mg PO BEDTIME 06/22/16 [History] Multivitamins [Childrens Chewable Vitamin] 1 tab PO DAILY@1200 06/22/16 [History ] Roflumilast [Daliresp] 500 mcg PO DAILY 09/18/16 [History] Umeclidinium [place] [Incruse Ellipta] 1 puff IH DAILY 09/27/16 [History] Digoxin [Lanoxin] 125 mcg PO DAILY tablet 04/01/17 [Rx] Insulin Aspart [NovoLOG] 0 unit SUBCUT TIDMEALS pen 04/01/17 [Rx] QUEtiapine [SEROquel] 12.5 mg PO DAILY #30 tablet 04/01/17 [Rx] QUEtiapine [SEROquel] 25 mg PO BEDTIME #30 tablet 04/01/17 [Rx] hydrOXYzine HCl [hydrOXYzine] 25 mg PO Q6H PRN #30 tablet 04/01/17 [Rx] Diltiazem [Tiazac] 240 mg PO DAILY 09/26/17 [History] Albuterol Sulfate 2.5 mg IH QID 09/27/17 [History] Albuterol Sulfate [Ventolin Hfa] 1 spray PO Q4H PRN 09/27/17 [History] Formoterol Fumarate [Perforomist] 1 vial INH BID 09/27/17 [History] Furosemide 40 mg PO DAILY 09/27/17 [History] Gabapentin [Neurontin] 300 mg PO TID 09/27/17 [History] Ipratropium [place] 1 unit INH QID 09/27/17 [History] LORazepam 1 tab PO BID PRN 09/27/17 [History] Montelukast Sodium 10 mg PO DAILY 09/27/17 [History] Roflumilast [Daliresp] 500 mcg PO DAILY 09/27/17 [History] Umeclidinium [place] [Incruse Ellipta] 1 puff PO DAILY 09/27/17 [History] Enoxaparin [Lovenox] 80 mg SQ BID 5 Days #10 syringe 09/29/17 [Rx] Insulin Detemir [Levemir] 10 unit SQ BID #7 pen 09/29/17 [Rx] Metoprolol Tartrate [Lopressor] 25 mg PO Q12HR 30 Days #60 tab 09/29/17 [Rx] Warfarin [Coumadin] 2 mg PO DAILY 30 Days #30 tab 09/29/17 [Rx] Patient Handouts: What You Need to Know About Warfarin, Enoxaparin injection, Warfarin tablets, Prothrombin Time, International Normalized Ratio Test, How and Where to Give Subcutaneous Enoxaparin Injections, Atrial Fibrillation, Easy- to-Read Forms: ED Department Discharge Referrals: PCP,None [Primary Care Provider] - - General Info Date of Service: 09/29/17 Admission Dx/Problem (Free Text: chest pain, Atrial Fibrillation Functional Status: Reports: Pain Controlled, Tolerating Diet, Ambulating - Review of Systems General: Reports: Fatigue HEENT: Reports: Sinus Congestion Pulmonary: Reports: Cough. Denies: Wheezing Cardiovascular: Denies: Chest Pain, Palpitations, Edema Gastrointestinal: Reports: Other (loose stools ) Genitourinary: Reports: No Symptoms Musculoskeletal: Reports: Shoulder Pain (chronic), Back Pain (chronic) Neurological: Reports: No Symptoms Psychiatric: Reports: No Symptoms - Patient Data Vitals - Most Recent: Last Vital Signs Temp 98.9 F 09/29/17 11:20 Pulse 72 09/29/17 11:20 Resp 22 H 09/29/17 11:20 BP 102/47 L 09/29/17 11:20 Pulse Ox 100 09/29/17 11:20 Weight - Most Recent: 180 lb I&O - Last 24 hours: Intake & Output 09/28/17 09/29/17 09/29/17 22:59 06:59 14:59 Intake Total 1260 600 Output Total 250 225 Balance 1010 375 Lab Results - Last 24 hrs: Laboratory Results - last 24 hr 09/28/17 09/28/17 09/29/17 Range/Units 16:19 18:55 04:45 WBC (4.0-11.0) K/uL RBC (3.80-5.80) M/uL Hgb (11.5-16.5) g/dL Hct (37.0-47.0) % MCV (76-96) fL MCH (27.0-32.0) pg MCHC (31.0-35.0) g/dL RDW (11.0-16.0) % Plt Count (150-500) K/uL MPV (6.0-10.0) fL Neut % (Auto) (45.0-70.0) % Lymph % (Auto) (20.0-40.0) % [place] % (Auto) (3.0-10.0) % Eos % (Auto) (1.0-5.0) % Baso % (Auto) (0.0-0.5) % Neut # (Auto) (2.00-7.50) K/uL Lymph # (Auto) (1.50-4.00) K/uL [place] # (Auto) (0.20-0.80) K/uL Eos # (Auto) (0.04-0.40) K/uL Baso # (Auto) (0.02-0.10) K/uL PT (9.0-11.5) sec INR (1.0-3.5) Sodium (136-145) mmol/L Potassium (3.5-5.1) mmol/L Chloride (98-107) mmol/L Carbon Dioxide (21.0-32.0) mmol/L Anion Gap (5.0-15.0) mmol/L BUN (8-26) mg/dL Creatinine (0.55-1.02) mg/dL Est Cr Clr Drug Dosing mL/min Estimated GFR (MDRD) (>60) MLS/MIN BUN/Creatinine Ratio (6-25) Glucose (74-100) mg/dL POC Glucose 265 H 348 H 156 H (74-110) mg/dL Calcium (8.5-10.1) mg/dL 09/29/17 09/29/17 09/29/17 Range/Units 06:25 07:11 07:11 WBC 14.6 H D (4.0-11.0) K/uL RBC 3.62 L (3.80-5.80) M/uL Hgb 10.1 L (11.5-16.5) g/dL Hct 33.1 L (37.0-47.0) % MCV 91 (76-96) fL MCH 27.9 (27.0-32.0) pg MCHC 30.5 L (31.0-35.0) g/dL RDW 14.3 (11.0-16.0) % Plt Count 301 D (150-500) K/uL MPV 9.4 (6.0-10.0) fL Neut % (Auto) 69.5 (45.0-70.0) % Lymph % (Auto) 18.0 L (20.0-40.0) % [place] % (Auto) 11.4 H (3.0-10.0) % Eos % (Auto) 0.8 L (1.0-5.0) % Baso % (Auto) 0.3 (0.0-0.5) % Neut # (Auto) 10.11 H (2.00-7.50) K/uL Lymph # (Auto) 2.62 (1.50-4.00) K/uL [place] # (Auto) 1.66 H (0.20-0.80) K/uL Eos # (Auto) 0.12 (0.04-0.40) K/uL Baso # (Auto) 0.05 (0.02-0.10) K/uL PT 9.9 (9.0-11.5) sec INR 1.0 (1.0-3.5) Sodium (136-145) mmol/L Potassium (3.5-5.1) mmol/L Chloride (98-107) mmol/L Carbon Dioxide (21.0-32.0) mmol/L Anion Gap (5.0-15.0) mmol/L BUN (8-26) mg/dL Creatinine (0.55-1.02) mg/dL Est Cr Clr Drug Dosing mL/min Estimated GFR (MDRD) (>60) MLS/MIN BUN/Creatinine Ratio (6-25) Glucose (74-100) mg/dL POC Glucose 145 H (74-110) mg/dL Calcium (8.5-10.1) mg/dL 09/29/17 09/29/17 Range/Units 07:11 10:17 WBC (4.0-11.0) K/uL RBC (3.80-5.80) M/uL Hgb (11.5-16.5) g/dL Hct (37.0-47.0) % MCV (76-96) fL MCH (27.0-32.0) pg MCHC (31.0-35.0) g/dL RDW (11.0-16.0) % Plt Count (150-500) K/uL MPV (6.0-10.0) fL Neut % (Auto) (45.0-70.0) % Lymph % (Auto) (20.0-40.0) % [place] % (Auto) (3.0-10.0) % Eos % (Auto) (1.0-5.0) % Baso % (Auto) (0.0-0.5) % Neut # (Auto) (2.00-7.50) K/uL Lymph # (Auto) (1.50-4.00) K/uL [place] # (Auto) (0.20-0.80) K/uL Eos # (Auto) (0.04-0.40) K/uL Baso # (Auto) (0.02-0.10) K/uL PT (9.0-11.5) sec INR (1.0-3.5) Sodium 140 (136-145) mmol/L Potassium 3.3 L (3.5-5.1) mmol/L Chloride 96 L (98-107) mmol/L Carbon Dioxide 41.1 H (21.0-32.0) mmol/L Anion Gap 6.2 (5.0-15.0) mmol/L BUN 32 H D (8-26) mg/dL Creatinine 2.11 H D (0.55-1.02) mg/dL Est Cr Clr Drug Dosing 22.14 mL/min Estimated GFR (MDRD) 24 L (>60) MLS/MIN BUN/Creatinine Ratio 15.2 (6-25) Glucose 149 H (74-100) mg/dL POC Glucose 193 H (74-110) mg/dL Calcium 7.8 L (8.5-10.1) mg/dL MILAGROS Results - Last 24 hrs: Microbiology 09/28/17 13:30 Stool Occult Blood (MILAGROS) - Final Stool / Feces Med Orders - Current: Current Medications Acetaminophen (Tylenol Extra Strength) 1,000 mg PO TID [facility] Last Admin: 09/29/17 07:38 Dose: Not Given Acetylcysteine (Mucomyst 20%) 600 mg NEB Q6H [facility] Last Admin: 09/29/17 07:15 Dose: Not Given Albuterol/Ipratropium (Duoneb 3.0-0.5 Mg/3 Ml) 3 ml NEB Q6H [facility] Last Admin: 09/29/17 07:38 Dose: Not Given Cholecalciferol (Vitamin D3) 2,000 units PO DAILY@1200 [facility] Last Admin: 09/29/17 12:26 Dose: 2,000 units Clindamycin HCl (Cleocin) 300 mg PO Q6H [facility] Last Admin: 09/29/17 12:27 Dose: 300 mg Desvenlafaxine Succinate (Pristiq) 50 mg PO QPM [facility] Last Admin: 09/28/17 20:15 Dose: 50 mg Digoxin (Lanoxin) 125 mcg PO DAILY [facility] Last Admin: 09/29/17 07:27 Dose: 125 mcg Diltiazem HCl (Cardizem Cd) 240 mg PO DAILY [facility] Last Admin: 09/29/17 07:29 Dose: 240 mg Enoxaparin Sodium (Lovenox) 80 mg SUBCUT Q12HR [facility] Last Admin: 09/29/17 07:40 Dose: Not Given Fluticasone Propionate (Flonase) 0 gm NASBOTH DAILY [facility] Last Admin: 09/29/17 08:20 Dose: 1 spray Furosemide (Lasix) 40 mg PO DAILY [facility] Last Admin: 09/29/17 07:34 Dose: 40 mg Gabapentin (Neurontin) 300 mg PO TID [facility] Last Admin: 09/29/17 07:34 Dose: 300 mg Guaifenesin (Mucinex) 600 mg PO BID [facility] Last Admin: 09/29/17 07:32 Dose: 600 mg Insulin Aspart (Novolog) 0 unit SUBCUT TIDMEALS [facility] PRN Reason: Protocol Last Admin: 09/29/17 12:23 Dose: 2 units Insulin Detemir (Levemir) 10 unit SUBCUT BID [facility] Last Admin: 09/29/17 08:21 Dose: 10 units Levalbuterol HCl (Xopenex) 1.25 mg NEB QID [facility] Last Admin: 09/29/17 12:26 Dose: 1.25 mg Lorazepam (Ativan) 0.5 mg PO BID PRN PRN Reason: Anxiety Last Admin: 09/29/17 05:36 Dose: 0.5 mg Melatonin (Melatonin) 3 mg PO DAILY [facility] Last Admin: 09/29/17 07:32 Dose: 3 mg Metoprolol Tartrate (Lopressor) 25 mg PO Q12HR [facility] Last Admin: 09/29/17 07:35 Dose: 25 mg Montelukast Sodium (Singulair) 10 mg PO DAILY@1200 [facility] Last Admin: 09/29/17 12:26 Dose: 10 mg Morphine Sulfate (Morphine) 2 mg IVPUSH Q1H PRN PRN Reason: Chest Pain Last Admin: 09/29/17 05:47 Dose: 2 mg Multivitamins/Minerals/Vitamin C (Childrens Chewable Vitamin) 1 tab PO DAILY@ 1200 [facility] Last Admin: 09/29/17 12:26 Dose: 1 tab Nicotine (Habitrol) 14 mg TRDERM DAILY [facility] Last Admin: 09/29/17 08:00 Dose: Not Given [facility] Pred[facility]one (Prednisone) 15 mg PO ONETIME ONE Stop: 09/30/17 08:01 Prednisone (Prednisone) 20 mg PO ONETIME ONE Stop: 10/01/17 08:01 Prednisone (Prednisone) 10 mg PO DAILY [facility] Stop: 10/08/17 08:01 Quetiapine Fumarate (Seroquel) 12.5 mg PO DAILY [facility] Last Admin: 09/29/17 07:32 Dose: 12.5 mg Quetiapine Fumarate (Seroquel) 25 mg PO BEDTIME [facility] Last Admin: 09/28/17 20:16 Dose: 25 mg Roflumilast (Daliresp) 500 mcg PO DAILY [facility] Last Admin: 09/29/17 07:33 Dose: 500 mcg Senna/Docusate Sodium (Senna Plus) 1 tab PO BID [facility] Last Admin: 09/29/17 07:30 Dose: 1 tab Sodium Chloride (Saline Flush) 10 ml FLUSH ASDIRECTED PRN PRN Reason: Keep Vein Open Last Admin: 09/29/17 08:32 Dose: 10 ml Tiotropium [place] (Spiriva Handihaler) 18 mcg INH DAILY [facility] Last Admin: 09/29/17 08:00 Dose: Not Given Tramadol HCl (Ultram) 50 mg PO TID [facility] Last Admin: 09/29/17 07:30 Dose: 50 mg Discontinued Medications Albuterol (Proventil Neb Soln) 2.5 mg INH QID [facility] Last Admin: 09/27/17 22:34 Dose: 2.5 mg Cholecalciferol (Vitamin D3) 1,000 units PO DAILY@1200 [facility] Diltiazem HCl (Diltiazem) 20 mg IVPUSH ONETIME ONE Stop: 09/27/17 17:38 Last Admin: 09/27/17 17:39 Dose: 20 mg Diltiazem HCl (Cardizem Cd) 120 mg PO ONETIME ONE Stop: 09/27/17 17:39 Last Admin: 09/27/17 17:52 Dose: 120 mg Diltiazem HCl (Diltiazem) 20 mg IVPUSH ONETIME ONE Stop: 09/28/17 07:28 Last Admin: 09/28/17 07:25 Dose: 20 mg Diltiazem HCl (Cardizem Cd) Confirm Administered Dose 240 mg .ROUTE .STK-MED ONE Stop: 09/28/17 07:44 Last Admin: 09/28/17 07:45 Dose: Not Given Diltiazem HCl (Cardizem Cd) Confirm Administered Dose 120 mg .ROUTE .STK-MED ONE Stop: 09/28/17 09:01 Last Admin: 09/28/17 09:00 Dose: Not Given Diltiazem HCl (Cardizem Cd) 120 mg PO ONETIME ONE Stop: 09/28/17 09:02 Last Admin: 09/28/17 09:05 Dose: 120 mg Diltiazem HCl (Diltiazem) 25 mg IVPUSH ONETIME ONE Stop: 09/28/17 08:46 Last Admin: 09/28/17 08:50 Dose: 25 mg Gabapentin (Neurontin) 600 mg PO TID [facility] Heparin Sodium (Porcine) (Heparin Sodium) 4,000 units IVPUSH BOLUS ONE Stop: 09/28/17 12:03 Heparin Sodium (Porcine) (Heparin Sodium) 2,000 units IVPUSH BOLUS [facility]W Stop: 09/28/17 18:00 Last Admin: 09/28/17 13:56 Dose: 2,000 units Heparin Sodium (Porcine) (Heparin Sodium) Confirm Administered Dose 5,000 units .ROUTE .STK-MED ONE Stop: 09/28/17 13:23 Last Admin: 09/28/17 13:55 Dose: Not Given Heparin Sodium/Dextrose (Heparin 25,000 Units In D5w 500 Ml) 25,000 units in 500 mls @ 19.595 mls/hr IV TITRATE MATTHEW; 12 UNITS/KG/HR PRN Reason: Protocol Last Admin: 09/28/17 14:48 Dose: 12 units/kg/hr, 19.595 mls/hr Insulin Glargine (Lantus Solostar) 20 units SUBCUT BEDTIME [facility] Levalbuterol HCl (Xopenex) 1.25 mg NEB ONETIME ONE Stop: 09/27/17 19:15 Last Admin: 09/27/17 19:45 Dose: 1.25 mg Levalbuterol HCl (Xopenex) Confirm Administered Dose 1.25 mg .ROUTE .STK-MED ONE Stop: 09/28/17 09:24 Last Admin: 09/28/17 09:30 Dose: Not Given Lorazepam (Ativan) 0.5 mg PO Q6H PRN PRN Reason: Anxiety Melatonin (Melatonin) Confirm Administered Dose 6 mg .ROUTE .STK-MED ONE Stop: 09/27/17 23:11 Last Admin: 09/28/17 00:36 Dose: Not Given Metoprolol Tartrate (Lopressor) 25 mg PO ONETIME ONE Stop: 09/28/17 11:30 Last Admin: 09/28/17 11:42 Dose: 25 mg Morphine Sulfate (Morphine) Confirm Administered Dose 10 mg .ROUTE .STK-MED ONE Stop: 09/27/17 17:49 Last Admin: 09/27/17 18:16 Dose: Not Given Morphine Sulfate (Morphine) Confirm Administered Dose 10 mg .ROUTE .ST-MED ONE Stop: 09/28/17 06:43 Last Admin: 09/28/17 06:55 Dose: Not Given Morphine Sulfate (Morphine) Confirm Administered Dose 10 mg .ROUTE .STK-MED ONE Stop: 09/28/17 12:30 Last Admin: 09/28/17 12:54 Dose: Not Given Morphine Sulfate (Morphine) Confirm Administered Dose 10 mg .ROUTE .STK-MED ONE Stop: 09/28/17 20:06 Last Admin: 09/28/17 20:17 Dose: Not Given Morphine Sulfate (Morphine) Confirm Administered Dose 10 mg .ROUTE .ST-MED ONE Stop: 09/28/17 20:09 Last Admin: 09/28/17 20:18 Dose: Not Given Nitroglycerin (Nitrostat) 0.4 mg SL Q5M PRN PRN Reason: Chest Pain Last Admin: 09/28/17 07:07 Dose: 0.4 mg Non-Formulary Medication (Diltiazem [Tiazac]) 240 mg PO DAILY [facility] Last Admin: 09/28/17 07:44 Dose: 240 mg Non-Formulary Medication (Melatonin [Melatonin]) 5 mg PO BEDTIME [facility] Last Admin: 09/27/17 23:15 Dose: 5 mg Omeprazole (Omeprazole) 20 mg PO ACBRK [facility] Last Admin: 09/29/17 07:16 Dose: 20 mg Prednisone (Prednisone) 15 mg PO ONETIME ONE Stop: 09/28/17 08:01 Last Admin: 09/28/17 09:29 Dose: 15 mg Prednisone (Prednisone) 20 mg PO ONETIME ONE Stop: 09/29/17 08:01 Last Admin: 09/29/17 07:32 Dose: 20 mg Tramadol HCl (Ultram) 75 mg PO QID [facility] Warfarin Sodium (Coumadin) 2 mg PO ONETIME ONE Stop: 09/28/17 16:23 Last Admin: 09/28/17 17:19 Dose: 2 mg Warfarin Sodium (Coumadin) Confirm Administered Dose 2 mg .ROUTE .STK-MED ONE Stop: 09/28/17 17:26 Last Admin: 09/28/17 17:53 Dose: Not Given - Exam Quality Assessment: Reports: Supplemental Oxygen, DVT Prophylaxis. Denies: Urine Catheter, Skin Breakdown General: Reports: Alert, Oriented, Cooperative, No Acute Distress HEENT: Reports: Mucous Membr. Moist/[place] Neck: Reports: Supple, Trachea Midline Lungs: Reports: Normal Respiratory Effort, Rhonchi (scattered, intermittent rhonchii, clears some with cough, continues to smoke, when home) Cardiovascular: Reports: Irregular Rhythm GI/Abdominal Exam: Soft, Non-Tender, Hernia Back Exam: Reports: Normal Inspection Extremities: Normal Inspection, Normal Capillary Refill. No: Pedal Edema Skin: Reports: Warm, Dry Psy/Mental Status: Reports: Alert, Normal Affect, Normal Mood *Q Meaningful Use (DIS) - VTE *Q VTE Criteria *Q: - Stroke *Q Stroke Criteria *Q: - AMI *Q AMI Criteria *Q:
[2017-09-29] MEDS ORDERED: Omeprazole 20 MG Cap.CR PO SCH (20:00)
[2017-09-30] MEDS ORDERED: predniSONE 5 MG Tab PO ONE (08:00)
[2017-10-01] MEDS ORDERED: predniSONE 20 MG Tab PO ONE (08:00)
[2017-10-02] MEDS ORDERED: predniSONE 10 MG Tab PO SCH (08:00)
== END 2017-09-29 18:35 | disposition home or self-care (01) | DRG 309 ==
LOC: LB.ED 16:23 → LB.MS 18:44 → UNDOADMIN 19:15 → LB.MS 19:15
PROVIDERS: ADMIT Nurse Practitioner Family; ATTEND Nurse Practitioner Family
DX: I48.91 Unspecified atrial fibrillation (principal); I13.0 Hypertensive heart and chronic kidney disease with heart failure and stage 1 through stage 4 chronic kidney disease, or unspecified chronic kidney disease; I50.9 Heart failure, unspecified; N18.9 Chronic kidney disease, unspecified; E11.22 Type 2 diabetes mellitus with diabetic chronic kidney disease; Z93.0 Tracheostomy status; F17.210 Nicotine dependence, cigarettes, uncomplicated; J44.9 Chronic obstructive pulmonary disease, unspecified; R07.9 Chest pain, unspecified; R00.0 Tachycardia, unspecified; Z79.4 Long term (current) use of insulin; M54.9 Dorsalgia, unspecified; G89.29 Other chronic pain; Z86.14 Personal history of Methicillin resistant Staphylococcus aureus infection; F41.9 Anxiety disorder, unspecified; F32.9 Major depressive disorder, single episode, unspecified; K21.9 Gastro-esophageal reflux disease without esophagitis; J30.9 Allergic rhinitis, unspecified; Z87.440 Personal history of urinary (tract) infections; H54.7 Unspecified visual loss; H91.90 Unspecified hearing loss, unspecified ear; J32.9 Chronic sinusitis, unspecified; Z79.52 Long term (current) use of systemic steroids; Z88.0 Allergy status to penicillin; Z91.013 Allergy to seafood; Z88.2 Allergy status to sulfonamides; Z88.8 Allergy status to other drugs, medicaments and biological substances
CPT/HCPCS: 36415; 71045; 80048; 80053; 80162; 81001; 82272; 82962; 83880; 84484; 85025; 85379; 85610; 85730; 93005; 96374; 96375; 99285-25; A0425; A0429; A9270-GY; J1644; J1644-GY; J1650; J2270; J3490; J7050; J7620

== ENCOUNTER 2017-10-03 07:37 | Emergency (ER) | payer MEDICARE, MEDICAID ==
[2017-10-03] MEDS ORDERED: Morphine 10 MG/ML Syringe IM ONE (08:11)
[2017-10-03] MEDS ORDERED: Morphine 10 MG/ML Syringe ONE (08:16)
[2017-10-03] MEDS ORDERED: Albuterol 0.083% 2.5 MG/3 ML Neb Soln ONE (09:00)
[2017-10-03] MEDS ORDERED: Albuterol 0.083% 2.5 MG/3 ML Neb Soln NEB PRN (09:08)
[2017-10-03] MEDS: Morphine 10 MG/ML Syringe IM ONE ×2 (09:30→12:15)
--- NOTE | 2017-10-03 12:15 | CT ---
DATE OF SERVICE: 10/03/17 CLINICAL DATA: Abdominal pain UNENHANCED ABDOMEN AND PELVIC CT: Multislice acquisition through the abdomen and pelvis without IV or oral contrast was performed. Comparison is made to a prior unenhanced abdomen and pelvic CT dated 09/26/17. The heart is stable. The liver, spleen, pancreas, right and left adrenals, and right and left kidneys are stable. The bladder is partially fluid-filled and appears normal. There is a persistent periumbilical ventral hernia containing a segment of the transverse colon. The length of transverse colon within the hernia sac does appear to be increased from the prior exam. No evidence of obstruction associated with it. There are several loops of small bowel that contain fluid and air-fluid levels. They are not dilated. Enteritis should be considered. Followup imaging is recommended if clinically indicated. The remainder of the exam is unchanged from the prior. No free air. No free fluid. [id number] [facility]
--- NOTE | 2017-10-03 12:40 | ER ---
HISTORY OF PRESENT ILLNESS: This is a 62-year-old lady who comes in by ambulance this morning with complaints of abdominal pain that she states she has had for a while, but it got worse over the last 24 hours. She states that she had a miserable night and finally decided to call the ambulance this morning. She is pointing to the epigastric area and radiating down the midline area past the umbilicus. The patient tells me the pain is constant. She rates it at 10/10. She denies any problems with nausea or vomiting. She has had cold sweats during the night on several occasions. She has not been running a fever to her knowledge. She did have 2 small loose stools within the last 24 hours. The patient denies any recent falls or injuries. SURGICAL HISTORY: Does include multiple C-sections. She has had a tubal ligation, appendectomy, and previous hernia repair. The patient is not aware if she has her gallbladder or not. PAST MEDICAL HISTORY: Includes COPD, type 2 diabetes, history of bronchitis, history of CHF. She has a trach tube placed. 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 The patient is a smoker. OBJECTIVE: GENERAL APPEARANCE: The patient is awake and alert. No respiratory distress. She appears uncomfortable. VITAL SIGNS: Reviewed, initially, blood pressure 133 /109, pulse is 111, she is afebrile. O2 sats are 99%. HEENT: Physical exam, oral mucous membranes are slightly dry. Tonsils not enlarged or injected. Pharynx not inflamed. LUNGS: Clear with moderately reduced air exchange throughout the lung otto. The patient has CVA tenderness with even light touch. She states some of this pain is chronic. ABDOMEN: Protuberant, tender with even light touch involving the entire epigastric area and around the periumbilical area. Skin is intact. Bowel sounds are hypoactive at this time. CARDIAC: Heart sounds distinct. S1, S2 present. STUDIES: Initial workup, labs today, CBC shows a slightly elevated white count of 13.4, neutrophils are elevated at 72.7. PT/INR shows an INR of 0.9. The patient is just recently started on Coumadin for atrial fibrillation. A comprehensive metabolic panel shows a carbon dioxide level of 40.7, BUN is 17, which is improved over the last week, creatinine 1.08, also an improvement. GFR is now at 52, this was at 24 one week ago. Liver enzymes are okay. UA shows a small amount of proteinuria, pH is elevated at 8.5 and a trace of occult blood. CT of the abdomen shows a periumbilical hernia with transverse colon pushing up within the umbilical hernia area. We compared with a CT from 1 week ago, and these symptoms have definitely become worse. She also has some loops of small bowel that have fluid and some distention, which could correlate to an enteritis or early obstruction. DIAGNOSIS: Acute abdominal pain with findings consistent with colon pushing into the periumbilical hernia as well as a possible enteritis. Treatment: The patient had been given morphine here 5 mg IM twice which did bring her pain level down to about a 6 on a 10 scale. The patient seems to be resting comfortably. I did consult with Billy in [place] and the patient will be transferred via ground ambulance to their emergency room. Dr. Pepe, the ER physician has accepted the patient for further evaluation. Arrangements are being made for transfer at this time. The patient will go with nursing staff, who can administer more pain medications en route if needed. She is otherwise to be n.p.o. CRS/MODL /[id number] DAYA
[2017-10-03 12:56] VITALS: BP 157/92
== END 2017-10-03 12:15 ==
LOC: LB.ED 07:37
DX: R10.9 Unspecified abdominal pain (principal); J44.9 Chronic obstructive pulmonary disease, unspecified; E11.9 Type 2 diabetes mellitus without complications; I50.9 Heart failure, unspecified
CPT/HCPCS: 36415; 74176; 80053; 81001; 85025; 85610; 96372; 99284; 99285-25; A0425; A0429; J2270

== ENCOUNTER 2018-01-19 17:10 | Inpatient (IN) | payer MEDICARE, MEDICAID ==
--- NOTE | 2018-01-19 17:10 | CR ---
DATE OF SERVICE: 01/19/18 CLINICAL DATA: Unspecified abdominal pain SUPINE AND UPRIGHT ABDOMEN: No free air. There are multiple gas-filled loops of small bowel in mid and upper abdomen. A couple of these are mildly dilated. They do contain air-fluid levels. A localized ileus or obstructive process is suspected. There is a linear density overlying the right lower lung that extends into the upper abdomen on the right, significance uncertain. [id number] [facility]
[2018-01-19] MEDS ORDERED: Sodium Chloride 0.9% 1,000 ML IV SCH (17:30)
[2018-01-19] MEDS ORDERED: metroNIDAZOLE/Normal Saline 100 ML ONE (19:18)
[2018-01-19] MEDS ORDERED: LORazepam 0.5 MG Tab PO PRN (20:10)
[2018-01-19] MEDS ORDERED: FORMOTEROL FUMARATE INH SCH (20:15)
[2018-01-19] MEDS: metroNIDAZOLE/Normal Saline 500 MG in Premix Bag 1 BAG IV SCH (22:01)
[2018-01-19] MEDS ORDERED: Ciprofloxacin in D5W 200 ML ONE (22:29)
[2018-01-19] MEDS: Ciprofloxacin in D5W 400 MG in Premix Bag 1 BAG IV SCH ×2 (22:42)
[2018-01-19] MEDS ORDERED: traMADol 50 MG Tab ONE (23:03)
[2018-01-19] MEDS: Metoprolol Tartrate 25 MG Tab PO SCH (23:06)
--- NOTE | 2018-01-20 03:52 | PCM.HP ---
H&P History of Present Illness - General Date of Service: 01/19/18 Admit Problem/Dx: Admission Diagnosis/Problem Admission Diagnosis/Problem Abdominal discomfort Source of Information: Patient, RN History Limitations: Reports: No Limitations - History of Present Illness Initial Comments - Free Text/Narative: 62 yr female was seen in the clinic today with abdominal pain and constipation. States little BM this am. States her hernia is painful and firm. x-ray of abdomen completed at clinic. Radiologist contacted provider with possible ileus and possible enteritis. Will admit for probable ileus and place pt NPO except for sips of fluid with her medication. Will Start Cipro and Flagyl IV with IV fluids of Normal saline. Pt has diabetes and COPD and does have a trach. She does manage her cares at home with assist. She is oxygen dependent and is in a wheelchair for transportation of an distance. Abdomen Pain Score (Numeric/FACES): 0 - Related Data Allergies/Adverse Reactions: Allergies Allergy/AdvReac Type Severity Reaction Status Date / Time clonidine Allergy Intermediate Lethargy Verified 01/19/18 22:26 Penicillins Allergy Unknown Edema Verified 01/19/18 22:27 shellfish derived Allergy Unknown Anaphylactic Verified 01/19/18 22:25 Shock Sulfa (Sulfonamide Allergy Unknown Edema Verified 01/19/18 22:26 Antibiotics) klonopin AdvReac Lethargy Uncoded 01/19/18 22:27 Home Medications: Home Meds guaiFENesin [Mucinex] 600 mg PO BID 10/02/14 [History] Omeprazole 20 mg PO BID 11/04/14 [History] predniSONE 20 mg PO DAILY 11/04/14 [History] Cholecalciferol (Vitamin D3) [Vitamin D3] 2,000 units PO DAILY@1200 06/04/15 [ History] Fluticasone Propionate [Flonase] 1 spray NASBOTH DAILY 06/04/15 [History] Desvenlafaxine [Pristiq] 50 mg PO QPM 01/03/16 [History] traMADol [Ultram] 50 mg PO TID 01/03/16 [History] Melatonin 5 mg PO BEDTIME 06/22/16 [History] Multivitamins [Childrens Chewable Vitamin] 1 tab PO DAILY@1200 06/22/16 [History ] Umeclidinium [place] [Incruse Ellipta] 1 puff IH DAILY 09/27/16 [History] Digoxin [Lanoxin] 125 mcg PO DAILY tablet 04/01/17 [Rx] Insulin Aspart [NovoLOG] 0 unit SUBCUT TIDMEALS pen 04/01/17 [Rx] QUEtiapine [SEROquel] 12.5 mg PO DAILY #30 tablet 04/01/17 [Rx] QUEtiapine [SEROquel] 25 mg PO BEDTIME #30 tablet 04/01/17 [Rx] hydrOXYzine HCl [hydrOXYzine] 25 mg PO Q6H PRN #30 tablet 04/01/17 [Rx] Diltiazem [Tiazac] 240 mg PO DAILY 09/26/17 [History] Albuterol Sulfate 2.5 mg IH QID 09/27/17 [History] Albuterol Sulfate [Ventolin Hfa] 1 spray PO Q4H PRN 09/27/17 [History] Formoterol Fumarate [Perforomist] 1 vial INH BID 09/27/17 [History] Furosemide 40 mg PO DAILY 09/27/17 [History] Gabapentin [Neurontin] 300 mg PO TID 09/27/17 [History] Ipratropium [place] 1 unit INH QID 09/27/17 [History] LORazepam 1 tab PO BID PRN 09/27/17 [History] Montelukast Sodium 10 mg PO DAILY 09/27/17 [History] Roflumilast [Daliresp] 500 mcg PO DAILY 09/27/17 [History] Umeclidinium [place] [Incruse Ellipta] 1 puff PO DAILY 09/27/17 [History] Enoxaparin [Lovenox] 80 mg SQ BID 5 Days #10 syringe 09/29/17 [Rx] Insulin Detemir [Levemir] 10 unit SQ BID #7 pen 09/29/17 [Rx] Metoprolol Tartrate [Lopressor] 25 mg PO Q12HR 30 Days #60 tab 09/29/17 [Rx] Clindamycin HCl [Cleocin HCl] 450 mg PO QID 10/03/17 [History] Past Medical History HEENT History: Reports: Allergic Rhinitis, Hard of Hearing, Impaired Vision, Other (See Below) Other HEENT History: trach placed x 2 years ago Cardiovascular History: Reports: Heart Failure, Hypertension, Other (See Below) Other Cardiovascular History: a flutter Respiratory History: Reports: SOB Other Respiratory History: SOB excessive plegm Gastrointestinal History: Reports: Chronic Constipation, GERD Genitourinary History: Reports: Chronic Renal Insuffiency, UTI, Recurrent Other Genitourinary History: no uti recently 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: Musculoskeletal History: Reports: Arthritis, Back Pain, Chronic, Neck Pain, Chronic Neurological History: Reports: Migraines Psychiatric History: Reports: Anxiety, Depression Endocrine/Metabolic History: Reports: Diabetes, Type II Hematologic History: Reports: Anemia Dermatologic History: Reports: Other (See Below) Other Dermatologic History: bruises easily - Infectious Disease History Infectious Disease History: Reports: Chicken Pox, Measles, MRSA, Rubella - Past Surgical History HEENT Surgical History: Reports: Other (See Below) GI Surgical History: Reports: Hernia, Abdominal Social & Family History - Family History Family Medical History: Noncontributory Cardiac: Reports: Hypertension Respiratory: Reports: Asthma, COPD Psychiatric: Reports: Anxiety - Caffeine Use Caffeine Use: Reports: Coffee - Living Situation & Occupation Living situation: Reports: Single, with Significant Other Occupation: Disabled H&P Review of Systems - Review of Systems: Review Of Systems: See Below General: Reports: Decreased Appetite. Denies: Fever, Chills Pulmonary: Reports: Shortness of Breath, Cough. Denies: Wheezing Cardiovascular: Denies: Chest Pain, Edema Gastrointestinal: Reports: Abdominal Pain, Constipation, Decreased Appetite. Denies: Nausea, Vomiting Genitourinary: Reports: Incontinence Musculoskeletal: Reports: Back Pain (chronic back pain) Skin: Reports: No Symptoms Psychiatric: Reports: No Symptoms Neurological: Reports: No Symptoms Exam - Exam Exam: See Below - Vital Signs Vital Signs: Last Vital Signs Temp 98.7 F 01/19/18 22:00 Pulse 89 01/19/18 23:06 Resp 20 01/20/18 02:00 BP 134/64 01/19/18 23:06 Pulse Ox 99 01/19/18 22:00 Weight: 178 lb 4 oz - Exam Quality Assessment: Supplemental Oxygen General: Alert, Oriented, Cooperative HEENT: Mucosa Moist & [place] Neck: Other (trach present) Lungs: Normal Respiratory Effort. No: Crackles, Wheezing Cardiovascular: Regular Rhythm GI/Abdominal Exam: Soft, Other (decreased bowel sounds and umbilical hernia is bulging). No: Rigid, Rebound (Female) Exam: Deferred Rectal (Female) Exam: Deferred Extremities: No Pedal Edema Skin: Warm, Dry Neuro Extensive - Mental Status: Alert, Normal Mood/Affect, Normal Cognition Psychiatric: Alert, Normal Affect, Normal Mood - Patient Data Lab Results Last 24 hrs: Laboratory Results - last 24 hr 01/19/18 Range/Units 22:05 POC Glucose 162 H (74-110) mg/dL - Problem List (1) Acute abdominal pain SNOMED Code(s): 213797283 ICD Code: R10.9 - UNSPECIFIED ABDOMINAL PAIN Status: Acute Current Visit : No Problem Details: 10/03/17 - Acute abdominal pain with findings consistent with colon pushing into the periumbilical hernia as wells as a possible enteritis. (2) Diabetes type 2, controlled SNOMED Code(s): 01231738 ICD Code: E11.9 - TYPE 2 DIABETES MELLITUS WITHOUT COMPLICATIONS Status: Acute Current Visit: No (3) Periumbilical hernia SNOMED Code(s): 534288259 ICD Code: K42.9 - UMBILICAL HERNIA WITHOUT OBSTRUCTION OR GANGRENE Status: Acute Current Visit: No (4) Tracheostomy in place SNOMED Code(s): 507589141 ICD Code: Z93.0 - TRACHEOSTOMY STATUS Status: Acute Current Visit: No (5) COPD (chronic obstructive pulmonary disease) SNOMED Code(s): 64254769 ICD Code: J44.9 - CHRONIC OBSTRUCTIVE PULMONARY DISEASE, UNSPECIFIED Status : Chronic Priority: High Current Visit: No Problem List Initiated/Reviewed/Updated: Yes Orders Last 24hrs: Active Orders 24 hr Category Date Time Status Patient Status [ADT] Routine ADT 01/19/18 17:20 Active Oxygen Therapy [RC] CONTINUOUS Care 01/19/18 17:20 Active Vital Signs [RC] Q4H Care 01/19/18 17:20 Active NPO [Nothing Per Oral Diet] [DIET] Diet 01/19/18 Dinner Ordered Albuterol [Proventil Neb Soln] Med 01/20/18 08:00 Active 2.5 mg NEB QID Ciprofloxacin in D5W [Cipro in D5W 400 MG/200 ML] 400 Med 01/19/18 20:00 Active mg Premix Bag 1 bag IV Q12HR Digoxin [Lanoxin] Med 01/20/18 08:00 Active 125 mcg PO DAILY Diltiazem [Cardizem CD] Med 01/20/18 08:00 Active 240 mg PO DAILY Fluticasone Propionate [Flonase] Med 01/20/18 08:00 Active 0 gm NASBOTH DAILY Formoterol Fumarate [Perforomist] Med 01/19/18 20:15 Pending 1 vial INH BID Insulin Aspart [NovoLOG] Med 01/20/18 08:00 Active See Protocol SUBCUT TID Ipratropium [Atrovent] Med 01/20/18 08:00 Active 0.5 mg INH QID LORazepam [Ativan] Med 01/19/18 20:10 Active 0.5 mg PO BID PRN Melatonin [Melatonin] Med 01/20/18 20:00 Pending 5 mg PO BEDTIME Metoprolol Tartrate [Lopressor] Med 01/19/18 20:00 Active 25 mg PO Q12HR QUEtiapine [SEROquel] Med 01/20/18 20:00 Active 12.5 mg PO BEDTIME QUEtiapine [SEROquel] Med 01/20/18 08:00 Active 12.5 mg PO DAILY Sodium Chloride 0.9% [Normal Saline] 1,000 ml Med 01/19/18 17:30 Active IV ASDIRECTED Umeclidinium [place] [Incruse Ellipta] Med 01/20/18 08:00 Active 0 mcg IH DAILY Warfarin [Coumadin] Med 01/19/18 20:15 Pending 2 mg PO DAILY metroNIDAZOLE/Normal Saline [Flagyl 500 MG in NS 100 ML Med 01/19/18 17:30 Active ] 500 mg Premix Bag 1 bag IV Q12H traMADol [Ultram] Med 01/20/18 08:00 Active 50 mg PO TID Medication Orders Albuterol (Proventil Neb Soln) 2.5 mg NEB QID MATTHEW Digoxin (Lanoxin) 125 mcg PO DAILY MATTHEW Diltiazem HCl (Cardizem Cd) 240 mg PO DAILY MATTHEW Fluticasone Propionate (Flonase) 0 gm NASBOTH DAILY [facility] Ciprofloxacin/Dextrose 400 mg/ (Premix) 200 mls @ 200 mls/hr IV Q12HR [facility] Last Admin: 01/19/18 22:42 Dose: Not Given Metronidazole 500 mg/ Premix 100 mls @ 100 mls/hr IV Q12H [facility] Last Admin: 01/19/18 22:01 Dose: Not Given Sodium Chloride (Normal Saline) 1,000 mls @ 100 mls/hr IV ASDIRECTED [facility] Last Admin: 01/19/18 18:33 Dose: 100 mls/hr Insulin Aspart (Novolog) 0 unit SUBCUT TID [facility]; Protocol Ipratropium [place] (Atrovent) 0.5 mg INH QID [facility] Lorazepam (Ativan) 0.5 mg PO BID PRN PRN Reason: Anxiety Last Admin: 01/19/18 23:07 Dose: 0.5 mg Metoprolol Tartrate (Lopressor) 25 mg PO Q12HR [facility] Last Admin: 01/19/18 23:06 Dose: 25 mg Non-Formulary Medication (Formoterol Fumarate [Perforomist]) 1 vial INH BID [facility] Non-Formulary Medication (Melatonin [Melatonin]) 5 mg PO BEDTIME [facility] Quetiapine Fumarate (Seroquel) 12.5 mg PO DAILY [facility] Quetiapine Fumarate (Seroquel) 12.5 mg PO BEDTIME [facility] Tramadol HCl (Ultram) 50 mg PO TID [facility] Umeclidinium [place] (Incruse Ellipta) 0 mcg IH DAILY [facility] Warfarin Sodium (Coumadin) 2 mg PO DAILY [facility] Assessment/Plan Comment:: Probable ileus: Will start IV Nacl @ 100 cc/hr. Will start Cipro IV and Flagyl IV for possible enteritis. NPO except for sips of water with oral medications as ordered. Will cover blood sugars with sliding scale insulin. Will continue nebulizers and inhalers as at home. Hold oxycodone for chronic back pain. May use Tramadol as ordered. Plan to discharge when pain improves and regular BM and passing flatus. Continue with Flagyl and Cipro oral for 7 days at home, upon discharge.
[2018-01-20] MEDS: metroNIDAZOLE/Normal Saline 500 MG in Premix Bag 1 BAG IV SCH ×2 (06:34→11:09)
[2018-01-20] MEDS ORDERED: Arformoterol 15 MCG/2 ML Neb Soln INH SCH (08:00)
[2018-01-20] MEDS ORDERED: UMECLIDINIUM BROMIDE 62.5 MCG INH SCH (08:00)
[2018-01-20] MEDS ORDERED: Fluticasone Propionate Nasal Spray 16 GM Bottle NASBOTH SCH (08:00)
[2018-01-20] MEDS ORDERED: Digoxin 125 MCG Tab PO SCH (08:00)
[2018-01-20] MEDS ORDERED: QUEtiapine 25 MG Tab PO SCH ×3 (08:00→20:00)
[2018-01-20] MEDS ORDERED: Diltiazem 120 MG Cap.CD PO SCH (08:00)
[2018-01-20] MEDS ORDERED: Umeclidinium Bromide 62.5 MCG 30 Puff Inhaler IH SCH (08:00)
[2018-01-20] MEDS: Ipratropium 0.02% 0.5 MG/2.5 ML Neb Soln INH SCH ×3 (08:23→17:06)
[2018-01-20] MEDS: Metoprolol Tartrate 25 MG Tab PO SCH (08:31)
[2018-01-20] MEDS: Albuterol 0.083% 2.5 MG/3 ML Neb Soln NEB SCH ×3 (08:36→17:06)
[2018-01-20] MEDS: traMADol 50 MG Tab PO SCH ×2 (08:37→13:15)
[2018-01-20] MEDS: Insulin Aspart 100 Units/ML 3 ML Pen SUBCUT SCH ×2 (08:40→15:04)
[2018-01-20] MEDS ORDERED: Lactobacillus Acidophilus/Lactobacillus Sporogenes (Probiotic) Tab PO SCH (11:15)
[2018-01-20] MEDS: Warfarin 2 MG Tab PO SCH (13:10)
[2018-01-20] MEDS: Ciprofloxacin in D5W 400 MG in Premix Bag 1 BAG IV SCH ×2 (13:10)
[2018-01-20 13:17] VITALS: BP 129/66
[2018-01-20] MEDS ORDERED: Non-Formulary Medication 1 Each (Melatonin [Melatonin] 5 MG) PO SCH (20:00)
[2018-01-20] MEDS ORDERED: Melatonin 3 MG Tab PO SCH (20:00)
== END 2018-01-20 18:20 | disposition home or self-care (01) | DRG 389 ==
LOC: LB.MS 17:10 → UNDOADMIN 17:10 → LB.MS 17:19
PROVIDERS: ADMIT Nurse Practitioner Family; ATTEND Nurse Practitioner Family
DX: K56.7 Ileus, unspecified (principal); I13.0 Hypertensive heart and chronic kidney disease with heart failure and stage 1 through stage 4 chronic kidney disease, or unspecified chronic kidney disease; E11.9 Type 2 diabetes mellitus without complications; J44.9 Chronic obstructive pulmonary disease, unspecified; H54.7 Unspecified visual loss; H91.90 Unspecified hearing loss, unspecified ear; I50.9 Heart failure, unspecified; K21.9 Gastro-esophageal reflux disease without esophagitis; K59.09 Other constipation; E11.22 Type 2 diabetes mellitus with diabetic chronic kidney disease; N18.9 Chronic kidney disease, unspecified; M19.90 Unspecified osteoarthritis, unspecified site; G89.29 Other chronic pain; M54.9 Dorsalgia, unspecified; M54.2 Cervicalgia; F41.9 Anxiety disorder, unspecified; F32.9 Major depressive disorder, single episode, unspecified; G43.909 Migraine, unspecified, not intractable, without status migrainosus; R32 Unspecified urinary incontinence; K42.9 Umbilical hernia without obstruction or gangrene; K52.9 Noninfective gastroenteritis and colitis, unspecified; Z86.14 Personal history of Methicillin resistant Staphylococcus aureus infection; Z93.0 Tracheostomy status; Z99.81 Dependence on supplemental oxygen; Z99.3 Dependence on wheelchair; Z88.2 Allergy status to sulfonamides; Z88.8 Allergy status to other drugs, medicaments and biological substances; Z88.0 Allergy status to penicillin; Z91.013 Allergy to seafood; Z79.4 Long term (current) use of insulin; Z79.52 Long term (current) use of systemic steroids; Z79.899 Other long term (current) drug therapy; Z87.440 Personal history of urinary (tract) infections
CPT/HCPCS: 36415; 74019; 80048; 82962; 85025; 85610; A9270-GY; J0744; J7030; J7605

== ENCOUNTER 2018-09-08 13:04 | Emergency (ER) | payer MEDICARE, MEDICAID ==
[2013-05-14 13:14] VITALS: BP 154/76
--- NOTE | 2018-09-08 14:44 | EDM.PDOC ---
ED HPI GENERAL MEDICAL PROBLEM - General Chief Complaint: Cardiovascular Problem Stated Complaint: RAPID HEART RATE Time Seen by Provider: 09/08/18 14:10 Source of Information: Reports: Patient History Limitations: Reports: No Limitations - History of Present Illness INITIAL COMMENTS - FREE TEXT/NARRATIVE: Pt was brought in by EMS to the emergency room. Pt does have severe END stage COPD with chronic respiratory failure.Claims that she has been having chest pain over the precardium since 10:30 am today. Pain is dull achy. Has taken 2 S/ l nitro at home. Pain was not better. patient claims that she has pain in her left shoulder, which is chronic form rotator injury. No sweating. She checked her pulse on home pulse oxymeter and it was in 170s, patient panicked and called EMS. When EMS went home they did EKG and her vitals were stable. Her heart rate was in 90s. She did receive one S/l nitro and her BP dropped to 99/69mmhg. Pt has remained stable during EMS transfer. Pt claims her pain is around 5-6/10 and has been unchanged after 3 doses of S/l nitro. No pain with deep breathing. No diaphoresis. No fever or chills. Does have cough as she continue to smoke( smokes 5-6 cigs daily). Pt does have shortness of breath from her COPD, but claims this is the best she has felt with her breathing.No excessive productive sputum. Onset: Today Onset Date: 09/08/18 Onset Time: 10:30 Location: Reports: Chest Quality: Reports: Ache Severity: Moderate Improves with: Reports: None Worsens with: Reports: None Associated Symptoms: Reports: Cough, Shortness of Breath. Denies: Confusion, Chest Pain, Diaphoresis, Fever/Chills, Headaches, Nausea/Vomiting, Rash, Seizure , Syncope, Weakness - Related Data Allergies Allergy/AdvReac Type Severity Reaction Status Date / Time Penicillins Allergy Unknown Edema Verified 09/08/18 14:50 shellfish derived Allergy Unknown Anaphylactic Verified 09/08/18 14:50 Shock Sulfa (Sulfonamide Allergy Unknown Edema Verified 09/08/18 14:50 Antibiotics) clonidine AdvReac Intermediate Lethargy Verified 09/08/18 14:50 klonopin AdvReac Lethargy Uncoded 01/19/18 22:27 Home Meds: Home Meds guaiFENesin [Mucinex] 600 mg PO BID 10/02/14 [History] Omeprazole 20 mg PO DAILY 11/04/14 [History] predniSONE 20 mg PO DAILY 11/04/14 [History] Fluticasone Propionate [Flonase] 1 spray NASBOTH DAILY 06/04/15 [History] Desvenlafaxine [Pristiq] 50 mg PO QPM 01/03/16 [History] traMADol [Ultram] 50 mg PO TID 01/03/16 [History] Melatonin 5 mg PO BEDTIME 06/22/16 [History] Multivitamins [Childrens Chewable Vitamin] 1 tab PO DAILY@1200 06/22/16 [History ] Umeclidinium [place] [Incruse Ellipta] 1 puff IH DAILY 09/27/16 [History] Digoxin [Lanoxin] 125 mcg PO DAILY tablet 04/01/17 [Rx] Insulin Aspart [NovoLOG] 0 unit SUBCUT TIDMEALS pen 04/01/17 [Rx] hydrOXYzine HCl [hydrOXYzine] 25 mg PO Q6H PRN #30 tablet 04/01/17 [Rx] Albuterol Sulfate 2.5 mg IH QID 09/27/17 [History] Albuterol Sulfate [Ventolin Hfa] 1 spray PO Q4H PRN 09/27/17 [History] Formoterol Fumarate [Perforomist] 1 vial INH BID 09/27/17 [History] Furosemide 40 mg PO DAILY 09/27/17 [History] Gabapentin [Neurontin] 300 mg PO TID 09/27/17 [History] Ipratropium [place] 1 unit INH QID 09/27/17 [History] LORazepam 1 tab PO BID PRN 09/27/17 [History] Montelukast Sodium 10 mg PO DAILY 09/27/17 [History] Roflumilast [Daliresp] 500 mcg PO DAILY 09/27/17 [History] Insulin Detemir [Levemir] 10 unit SQ BID #7 pen 09/29/17 [Rx] Metoprolol Tartrate [Lopressor] 25 mg PO Q12HR 30 Days #60 tab 09/29/17 [Rx] Arformoterol [Brovana] 15 mcg INH BID neb 01/20/18 [Rx] QUEtiapine [SEROquel] 25 mg PO DAILY 06/05/18 [History] Warfarin Sodium [Coumadin] 4 mg PO DAILY 06/05/18 [History] Past Medical History HEENT History: Reports: Allergic Rhinitis, Hard of Hearing, Impaired Vision, Other (See Below) Other HEENT History: trach placed x 2 years ago Cardiovascular History: Reports: Heart Failure, Hypertension, Other (See Below) Other Cardiovascular History: a flutter Respiratory History: Reports: SOB Other Respiratory History: SOB excessive plegm Gastrointestinal History: Reports: Chronic Constipation, GERD Genitourinary History: Reports: Chronic Renal Insuffiency, UTI, Recurrent Other Genitourinary History: no uti recently 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: Musculoskeletal History: Reports: Arthritis, Back Pain, Chronic, Neck Pain, Chronic Neurological History: Reports: Migraines Psychiatric History: Reports: Anxiety, Depression Endocrine/Metabolic History: Reports: Diabetes, Type II Hematologic History: Reports: Anemia Dermatologic History: Reports: Other (See Below) Other Dermatologic History: bruises easily - Infectious Disease History Infectious Disease History: Reports: Chicken Pox, Measles, MRSA, Rubella - Past Surgical History HEENT Surgical History: Reports: Other (See Below) GI Surgical History: Reports: Hernia, Abdominal Social & Family History - Family History Family Medical History: Noncontributory Cardiac: Reports: Hypertension Respiratory: Reports: Asthma, COPD Psychiatric: Reports: Anxiety - Caffeine Use Caffeine Use: Reports: Coffee - Living Situation & Occupation Living situation: Reports: Single, with Significant Other Occupation: Disabled ED ROS GENERAL - Review of Systems Review Of Systems: See Below Constitutional: Denies: Fever, Chills HEENT: Denies: Ear Pain, Rhinitis, Throat Pain, Throat Swelling Respiratory: Reports: Shortness of Breath (chronic), Cough (chronic), Sputum ( clear chronic). Denies: Wheezing, Pleuritic Chest Pain Cardiovascular: Reports: Chest Pain. Denies: Lightheadedness, Palpitations, Syncope GI/Abdominal: Denies: Abdominal Pain, Constipation, Diarrhea, Nausea, Vomiting : Denies: Dysuria, Flank Pain Musculoskeletal: Reports: Shoulder Pain, Joint Pain. Denies: Joint Swelling Skin: Denies: Bruising, Pruritis, Rash ED EXAM, GENERAL - Physical Exam Exam: See Below Exam Limited By: No Limitations General Appearance: Alert, WD/WN, No Apparent Distress, Other (pt does have tracheostomy and is comfortbale. Maintaining her SPO2 above 99% on 3 litres of oxygen, that she routine uses at home.) Eye Exam: Bilateral Eye: EOMI, PERRL Ears: Normal External Exam, Normal Canal, Hearing Grossly Normal, Normal TMs Ear Exam: Bilateral Ear: Auricle Normal, Canal Normal, TM normal Nose: Normal Inspection, Normal Mucosa, No Blood Throat/Mouth: Normal Inspection, Normal Lips, Normal Teeth, Normal Gums, Normal Oropharynx, Normal Voice, No Airway Compromise Head: Atraumatic, Normocephalic Neck: Normal Inspection, Supple, Non-Tender, Full Range of Motion Respiratory/Chest: No Respiratory Distress, No Accessory Muscle Use, Decreased Breath Sounds (b/l secondary to COPD), Crackles (scattered), Other (Pt does have tenderness over the costochondral junctions of the lower chest b/l.) Cardiovascular: Normal Peripheral Pulses, Regular Rate, Rhythm, No Edema, No Gallop, No JVD, No Murmur, No Rub Peripheral Pulses: 2+: Carotid (L), Carotid (R), Radial (L), Radial (R) GI/Abdominal: Normal Bowel Sounds, Soft, Non-Tender, No Organomegaly, No Distention, No Abnormal Bruit, No Mass Extremities: Normal Inspection, Normal Range of Motion, Non-Tender, Normal Capillary Refill, No Pedal Edema Neurological: Alert, Oriented, CN II-XII Intact Psychiatric: Normal Affect, Normal Mood EKG INTERPRETATION EKG Date: 09/08/18 Rhythm: NSR Rate (Beats/Min): 98 [place]: Normal P-Wave: Present QRS: Normal ST-T: Normal QT: Normal Course - Vital Signs Text/Narrative:: In the Emergency room. Pt's vitals are stable. Her temp is 98.9F. Heart rate is 100/min, BP is 131/65mmhg. SPO2 is 99% on 3 liters of oxygen that she uses at home. On clinical exam she does have scattered crackles over the lung field. She is tender over the lower sternochondral junctions. Her CBC and CMP are stable. Her INR is 2 as she is on coumadin. Her chest x-ray appears stable compared to previous Xray. Troponin is negative. Pt reassured that she has mild costochondritis of the lower chest wall. Her left shoulder pain is chronic from degenerative disease. Also patient claims that she has been feeling the best after a long time, but she got concerned with her chest pain as S/l nitro did not help with pain. I did reassured Nitro only helps with cardiac pain and not so much with musculoskeletal pain.Advised intermittent heat tot he chest wall. No pain meds given considering patient poor respiratory functions. Pt was reassured and discharged. Advised to followup in the clinic next week for recheck. Last Recorded V/S: Last Vital Signs Temp 98.9 F 09/08/18 14:22 Pulse 100 09/08/18 14:22 Resp 20 09/08/18 14:22 BP 131/65 09/08/18 14:22 Pulse Ox 99 09/08/18 14:22 - Orders/Labs/Meds Orders: Active Orders 24 hr Category Date Time Status EKG Documentation Completion [RC] ASDIRECTED Care 09/08/18 14:14 Active Chest 1V Frontal [CR] Stat Exams 09/08/18 14:14 Taken Labs: Laboratory Tests 09/08/18 09/08/18 09/08/18 Range/Units 14:20 14:20 14:25 WBC 11.9 H D (4.0-11.0) K/uL RBC 4.49 (3.80-5.80) M/uL Hgb 12.4 (11.5-16.5) g/dL Hct 40.6 (37.0-47.0) % MCV 90 (76-96) fL MCH 27.6 (27.0-32.0) pg MCHC 30.5 L (31.0-35.0) g/dL RDW 13.8 (11.0-16.0) % Plt Count 270 (150-500) K/uL MPV 9.5 (6.0-10.0) fL Neut % (Auto) 72.2 H (45.0-70.0) % Lymph % (Auto) 15.5 L (20.0-40.0) % [place] % (Auto) 9.9 (3.0-10.0) % Eos % (Auto) 2.1 (1.0-5.0) % Baso % (Auto) 0.3 (0.0-0.5) % Neut # (Auto) 8.60 H (2.00-7.50) K/uL Lymph # (Auto) 1.85 (1.50-4.00) K/uL [place] # (Auto) 1.18 H (0.20-0.80) K/uL Eos # (Auto) 0.25 (0.04-0.40) K/uL Baso # (Auto) 0.04 (0.02-0.10) K/uL PT 18.8 H D (9.0-11.5) sec INR 2.0 D (1.0-3.5) Sodium 143 (136-145) mmol/L Potassium 4.1 (3.5-5.1) mmol/L Chloride 99 (98-107) mmol/L Carbon Dioxide 41.9 H (21.0-32.0) mmol/L Anion Gap 6.2 (5.0-15.0) mmol/L BUN 18 D (8-26) mg/dL Creatinine 0.97 D (0.55-1.02) mg/dL Est Cr Clr Drug Dosing TNP Estimated GFR (MDRD) 58 L (>60) MLS/MIN BUN/Creatinine Ratio 18.6 (6-25) Glucose 101 H (74-100) mg/dL Calcium 8.5 (8.5-10.1) mg/dL Total Bilirubin 0.3 (0.0-1.0) mg/dL AST 15 (15-37) U/L ALT 22 (12-78) U/L Alkaline Phosphatase 97 (46-116) U/L Troponin I 0.022 D (0.000-0.060) ng/mL Total Protein 6.5 (6.4-8.2) g/dL Albumin 2.8 L (3.4-5.0) g/dL Globulin 3.7 (2.2-4.2) g/dL Albumin/Globulin Ratio 0.8 (0.8-2.0) Departure - Departure Time of Disposition: 16:00 Disposition: Home, Self-Care 01 Condition: Good Clinical Impression: Costochondritis Instructions: Sinus Tachycardia Referrals: PCP,Unknown [Primary Care Provider] - Forms: ED Department Discharge Additional Instructions: - Continue with going medications. - Continue taking the same dose of Coumadin. - Follow-up in the clinic next week. Pt will call the clinic to set up the appointment time and day. - Problem List & Annotations (1) Costochondritis SNOMED Code(s): 86481073 Code(s): M94.0 - CHONDROCOSTAL JUNCTION SYNDROME [TIETZE] Status: Acute Current Visit: Yes - Problem List Review Problem List Initiated/Reviewed/Updated: Yes - My Orders Last 24 Hours: My Active Orders 09/08/18 14:14 EKG Documentation Completion [RC] ASDIRECTED Chest 1V Frontal [CR] Stat - Assessment/Plan Last 24 Hours: My Active Orders 09/08/18 14:14 EKG Documentation Completion [RC] ASDIRECTED Chest 1V Frontal [CR] Stat Assessment:: Costochondritis Plan: In the Emergency room. Pt's vitals are stable. Her temp is 98.9F. Heart rate is 100/min, BP is 131/65mmhg. SPO2 is 99% on 3 liters of oxygen that she uses at home. On clinical exam she does have scattered crackles over the lung field. She is tender over the lower sternochondral junctions. Her CBC and CMP are stable. Her INR is 2 as she is on coumadin. Her chest x-ray appears stable compared to previous Xray. Troponin is negative. Pt reassured that she has mild costochondritis of the lower chest wall. Her left shoulder pain is chronic from degenerative disease. Also patient claims that she has been feeling the best after a long time, but she got concerned with her chest pain as S/l nitro did not help with pain. I did reassured Nitro only helps with cardiac pain and not so much with musculoskeletal pain.Advised intermittent heat tot he chest wall. No pain meds given considering patient poor respiratory functions. Pt was reassured and discharged. Advised to followup in the clinic next week for recheck.
[2018-09-08 14:57] VITALS: BP 131/65
--- NOTE | 2018-09-10 12:19 | CR ---
AP PORTABLE CHEST, 09/08/18 Comparison is made to a prior exam dated 06/05/18. The tracheostomy tube remains unchanged in position. The heart size is stable. There is a rounded mass-like density superior to the left hilum. Chest CT is recommended to further evaluate it. There is also a questionable nodular density in the left lung base medially. The exam is otherwise unchanged from the prior study. [id number] [facility]
== END 2018-09-08 16:47 | disposition home or self-care (01) ==
LOC: LB.ED 13:04
DX: M94.0 Chondrocostal junction syndrome [Tietze] (principal); I13.0 Hypertensive heart and chronic kidney disease with heart failure and stage 1 through stage 4 chronic kidney disease, or unspecified chronic kidney disease; N18.9 Chronic kidney disease, unspecified; I50.9 Heart failure, unspecified; K21.9 Gastro-esophageal reflux disease without esophagitis; Z88.0 Allergy status to penicillin; Z88.2 Allergy status to sulfonamides; Z79.899 Other long term (current) drug therapy; Z79.01 Long term (current) use of anticoagulants
CPT/HCPCS: 36415; 71045; 80053; 84484; 85025; 85610; 93005; 99283; 99285-25; A0425; A0429

== ENCOUNTER 2018-10-22 16:29 | Emergency (ER) | payer MEDICARE, MEDICAID ==
--- NOTE | 2018-10-22 17:41 | EDM.PDOC ---
ED HPI GENERAL MEDICAL PROBLEM - General Stated Complaint: shortness of breath Time Seen by Provider: 10/22/18 17:10 Source of Information: Reports: Patient History Limitations: Reports: No Limitations - History of Present Illness INITIAL COMMENTS - FREE TEXT/NARRATIVE: According to patient she has been having nasal congestion and cough for past 1 wk or more. She has been having facial pains and post nasal drip, which has got worse over the weekend. Hs been running fever and chills. Sputum is yellow and thick. No nausea or vomiting. No shortness of breath. Pt does have tracheostomy and recently diagnosed with lung cancer. Onset: Gradual Duration: Week(s): (1 wk or more), Getting Worse Severity: Mild Improves with: Reports: None Worsens with: Reports: None Associated Symptoms: Reports: Fever/Chills, Headaches. Denies: Confusion, Chest Pain, Cough, Diaphoresis, Nausea/Vomiting, Rash, Seizure, Shortness of Breath, Syncope, Weakness - Related Data Allergies Allergy/AdvReac Type Severity Reaction Status Date / Time Penicillins Allergy Unknown Edema Verified 10/22/18 17:40 shellfish derived Allergy Unknown Anaphylactic Verified 10/22/18 17:40 Shock Sulfa (Sulfonamide Allergy Unknown Edema Verified 10/22/18 17:40 Antibiotics) clonidine AdvReac Intermediate Lethargy Verified 10/22/18 17:40 klonopin AdvReac Lethargy Uncoded 01/19/18 22:27 Home Meds: Home Meds guaiFENesin [Mucinex] 600 mg PO BID 10/02/14 [History] Omeprazole 20 mg PO DAILY 11/04/14 [History] predniSONE 20 mg PO DAILY 11/04/14 [History] Fluticasone Propionate [Flonase] 1 spray NASBOTH DAILY 06/04/15 [History] Desvenlafaxine [Pristiq] 50 mg PO QPM 01/03/16 [History] traMADol [Ultram] 50 mg PO TID 01/03/16 [History] Melatonin 5 mg PO BEDTIME 06/22/16 [History] Multivitamins [Childrens Chewable Vitamin] 1 tab PO DAILY@1200 06/22/16 [History ] Umeclidinium [place] [Incruse Ellipta] 1 puff IH DAILY 09/27/16 [History] Digoxin [Lanoxin] 125 mcg PO DAILY tablet 04/01/17 [Rx] Insulin Aspart [NovoLOG] 0 unit SUBCUT TIDMEALS pen 04/01/17 [Rx] hydrOXYzine HCl [hydrOXYzine] 25 mg PO Q6H PRN #30 tablet 04/01/17 [Rx] Albuterol Sulfate 2.5 mg IH QID 09/27/17 [History] Albuterol Sulfate [Ventolin Hfa] 1 spray PO Q4H PRN 09/27/17 [History] Formoterol Fumarate [Perforomist] 1 vial INH BID 09/27/17 [History] Furosemide 40 mg PO DAILY 09/27/17 [History] Gabapentin [Neurontin] 300 mg PO TID 09/27/17 [History] Ipratropium [place] 1 unit INH QID 09/27/17 [History] LORazepam 1 tab PO BID PRN 09/27/17 [History] Montelukast Sodium 10 mg PO DAILY 09/27/17 [History] Roflumilast [Daliresp] 500 mcg PO DAILY 09/27/17 [History] Insulin Detemir [Levemir] 10 unit SQ BID #7 pen 09/29/17 [Rx] Metoprolol Tartrate [Lopressor] 25 mg PO Q12HR 30 Days #60 tab 09/29/17 [Rx] Arformoterol [Brovana] 15 mcg INH BID neb 01/20/18 [Rx] QUEtiapine [SEROquel] 25 mg PO DAILY 06/05/18 [History] Warfarin Sodium [Coumadin] 4 mg PO DAILY 06/05/18 [History] Past Medical History HEENT History: Reports: Allergic Rhinitis, Hard of Hearing, Impaired Vision, Other (See Below) Other HEENT History: trach placed x 2 years ago Cardiovascular History: Reports: Heart Failure, Hypertension, Other (See Below) Other Cardiovascular History: a flutter Respiratory History: Reports: SOB Other Respiratory History: SOB excessive plegm Gastrointestinal History: Reports: Chronic Constipation, GERD Genitourinary History: Reports: Chronic Renal Insuffiency, UTI, Recurrent Other Genitourinary History: no uti recently 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: Musculoskeletal History: Reports: Arthritis, Back Pain, Chronic, Neck Pain, Chronic Neurological History: Reports: Migraines Psychiatric History: Reports: Anxiety, Depression Endocrine/Metabolic History: Reports: Diabetes, Type II Hematologic History: Reports: Anemia Dermatologic History: Reports: Other (See Below) Other Dermatologic History: bruises easily - Infectious Disease History Infectious Disease History: Reports: Chicken Pox, Measles, MRSA, Rubella - Past Surgical History HEENT Surgical History: Reports: Other (See Below) GI Surgical History: Reports: Hernia, Abdominal Social & Family History - Family History Family Medical History: Noncontributory Cardiac: Reports: Hypertension Respiratory: Reports: Asthma, COPD Psychiatric: Reports: Anxiety - Caffeine Use Caffeine Use: Reports: Coffee - Living Situation & Occupation Living situation: Reports: Single, with Significant Other Occupation: Disabled ED ROS GENERAL - Review of Systems Review Of Systems: See Below Constitutional: Reports: Fever, Chills HEENT: Reports: Rhinitis, Sinus Problem. Denies: Ear Pain, Throat Pain, Throat Swelling Respiratory: Reports: Wheezing, Cough, Sputum. Denies: Shortness of Breath, Pleuritic Chest Pain Cardiovascular: Denies: Edema, Orthopnea Endocrine: Denies: Fatigue, Low Glucose GI/Abdominal: Denies: Abdominal Pain, Nausea, Vomiting : Denies: Dysuria, Frequency Musculoskeletal: Denies: Joint Pain, Joint Swelling Skin: Denies: Bruising, Pruritis, Rash ED EXAM, GENERAL - Physical Exam Exam: See Below Exam Limited By: No Limitations General Appearance: Alert, WD/WN, No Apparent Distress Eye Exam: Bilateral Eye: EOMI, PERRL Ears: Normal External Exam, Normal Canal, Hearing Grossly Normal, Normal TMs Ear Exam: Bilateral Ear: Auricle Normal, Canal Normal, TM normal Nose: Normal Inspection, Normal Mucosa, Nasal Drainage (mucoid purulent) Throat/Mouth: Other (poor oral hygiene). No: Normal Inspection, Normal Lips Neck: Normal Inspection Respiratory/Chest: No Accessory Muscle Use, Decreased Breath Sounds (b/l ), Rhonchi (scatterred over lung otto), Other (has tracheostomy and uses oxygen 3 ltres per minute). No: Respiratory Distress Cardiovascular: Normal Peripheral Pulses, Regular Rate, Rhythm, No Edema, No Gallop, No JVD, No Murmur, No Rub Extremities: Normal Inspection, Normal Range of Motion, Non-Tender, Normal Capillary Refill, No Pedal Edema Neurological: Alert, Oriented Skin Exam: Warm Course - Vital Signs Text/Narrative:: Pt has sinus tenderness with purulent sinus drainage. Tender over all the sinus point.Vitals stable SPO2 is 99% of 3 litres O2.Pt's Chest Xray is stable. Her CBC shows white count of 11.5K with neutro 84%.Pt reassured that she has acute bacterial sinusitis. Advised steam inhalations 3-4 times daily. Humidification of room air. Pt still smokes. Advised to cut down or quit smoking.I have started her on Zpak. Followup in clinic if symptoms worsen or if not better in 5 -7 days. - Orders/Labs/Meds Orders: Active Orders 24 hr Category Date Time Status Chest 1V Frontal [CR] Stat Exams 10/22/18 17:31 Ordered CBC WITH AUTO DIFF [HEME] Stat Lab 10/22/18 17:31 Ordered Departure - Departure Time of Disposition: 18:00 Disposition: Home, Self-Care 01 Condition: Fair Clinical Impression: Acute bacterial sinusitis - Discharge Information *PRESCRIPTION DRUG MONITORING PROGRAM REVIEWED*: Not Applicable *COPY OF PRESCRIPTION DRUG MONITORING REPORT IN PATIENT ANSHU: Not Applicable - Problem List & Annotations (1) Constipation SNOMED Code(s): 99828328 Code(s): K59.00 - CONSTIPATION, UNSPECIFIED Status: Acute Current Visit: No (2) Acute bacterial sinusitis SNOMED Code(s): 30037863 Code(s): J01.90 - ACUTE SINUSITIS, UNSPECIFIED; B96.89 - OTH BACTERIAL AGENTS THE CAUSE OF DISEASES CLASSD [id number] Status: Acute Current Visit: Yes - Problem List Review Problem List Initiated/Reviewed/Updated: Yes - My Orders Last 24 Hours: My Active Orders 10/22/18 17:31 Chest 1V Frontal [CR] Stat CBC WITH AUTO DIFF [HEME] Stat - Assessment/Plan Last 24 Hours: My Active Orders 10/22/18 17:31 Chest 1V Frontal [CR] Stat CBC WITH AUTO DIFF [HEME] Stat Assessment:: Acute bacterial sinusitis Plan: Pt has sinus tenderness with purulent sinus drainage. Tender over all the sinus point.Vitals stable SPO2 is 99% of 3 litres O2.Pt's Chest Xray is stable. Her CBC shows white count of 11.5K with neutro 84%.Pt reassured that she has acute bacterial sinusitis. Advised steam inhalations 3-4 times daily. Humidification of room air. Pt still smokes. Advised to cut down or quit smoking.I have started her on Zpak. Followup in clinic if symptoms worsen or if not better in 5 -7 days.
[2018-10-22] MEDS ORDERED: Azithromycin 250 MG Tab ONE (18:00)
[2018-10-22 20:40] VITALS: BP 123/62
--- NOTE | 2018-10-23 05:08 | CR ---
DATE OF SERVICE: 10/22/18 CLINICAL DATA: Cough with sinus infection. AP PORTABLE CHEST: Comparison is made to a prior exam dated 09/08/18. The tracheostomy tube remains unchanged in position. The patient has taken a poor inspiration. The heart size is stable. The mass like density superior to the left hilum on the prior exam is not clearly seen on this followup exam; however, the patient is significantly rotated to the right. There are interstitial infiltrates throughout both lungs with progression from the prior study. Interstitial edema should be considered. The lungs otherwise clear. No pneumothorax. No pleural effusions. [id number] [facility]
== END 2018-10-22 18:10 | disposition home or self-care (01) ==
LOC: LB.ED 16:29
DX: J01.90 Acute sinusitis, unspecified (principal); B96.89 Other specified bacterial agents as the cause of diseases classified elsewhere; I13.0 Hypertensive heart and chronic kidney disease with heart failure and stage 1 through stage 4 chronic kidney disease, or unspecified chronic kidney disease; I50.9 Heart failure, unspecified; N18.9 Chronic kidney disease, unspecified; E11.22 Type 2 diabetes mellitus with diabetic chronic kidney disease; F17.209 Nicotine dependence, unspecified, with unspecified nicotine-induced disorders; F41.9 Anxiety disorder, unspecified; F32.9 Major depressive disorder, single episode, unspecified; Z88.0 Allergy status to penicillin; Z88.2 Allergy status to sulfonamides; Z79.899 Other long term (current) drug therapy; Z79.01 Long term (current) use of anticoagulants
CPT/HCPCS: 36415; 71045; 85025; 99283-25; A9270-GY

== ENCOUNTER 2018-10-30 03:44 | Inpatient (IN) | payer MEDICARE, MEDICAID ==
[2013-05-14 13:14] VITALS: BP 154/76
--- NOTE | 2018-10-30 05:16 | EDM.PDOC ---
ED HPI GENERAL MEDICAL PROBLEM - General Chief Complaint: General Stated Complaint: UNRESPONSIVE Time Seen by Provider: 10/30/18 04:00 Source of Information: Reports: Patient History Limitations: Reports: No Limitations - History of Present Illness INITIAL COMMENTS - FREE TEXT/NARRATIVE: Pt is 63 year old female with O2 dependent end stage COPD with new diagnosis of lung cancer, presents to the emergency room by EMS, as her called claiming that patient was unresponsive. EMS claims that on arrival at the scene , pt was barely arousable, but her vitals were stable. Pt was placed on 4 litre O2 by tracheostomy and brought her into emergency room. In the ER, patient is arousable to verbal command but very somnolent. Pt did receive Narcan 1mg IV in the emergency room and patient woke up and has been talking and responding appropriately. Apparently pt has been having jerky tremors of her upper and lower extremities on and off for several months now, which she claims have been getting worse. Happens when patient is awake and also when she is sleeping. No pain or discomfort asso with tremors, lasts for few seconds and resolve. But if she is hold a cup of coffee or feeding, the tremors makes her spill it. Onset: Today Onset Date: 10/30/18 Onset Time: 04:00 - Related Data Allergies Allergy/AdvReac Type Severity Reaction Status Date / Time Penicillins Allergy Unknown Edema Verified 10/30/18 03:45 shellfish derived Allergy Unknown Anaphylactic Verified 10/30/18 03:45 Shock Sulfa (Sulfonamide Allergy Unknown Edema Verified 10/30/18 03:45 Antibiotics) clonidine AdvReac Intermediate Lethargy Verified 10/30/18 03:45 klonopin AdvReac Lethargy Uncoded 10/30/18 03:45 Home Meds: Home Meds guaiFENesin [Mucinex] 600 mg PO BID 10/02/14 [History] Omeprazole 20 mg PO DAILY 11/04/14 [History] predniSONE 20 mg PO DAILY 11/04/14 [History] Fluticasone Propionate [Flonase] 1 spray NASBOTH DAILY 06/04/15 [History] Desvenlafaxine [Pristiq] 50 mg PO QPM 01/03/16 [History] traMADol [Ultram] 50 mg PO TID 01/03/16 [History] Melatonin 5 mg PO BEDTIME 06/22/16 [History] Multivitamins [Childrens Chewable Vitamin] 1 tab PO DAILY@1200 06/22/16 [History ] Umeclidinium [place] [Incruse Ellipta] 1 puff IH DAILY 09/27/16 [History] Digoxin [Lanoxin] 125 mcg PO DAILY tablet 04/01/17 [Rx] Insulin Aspart [NovoLOG] 0 unit SUBCUT TIDMEALS pen 04/01/17 [Rx] hydrOXYzine HCl [hydrOXYzine] 25 mg PO Q6H PRN #30 tablet 04/01/17 [Rx] Albuterol Sulfate 2.5 mg IH QID 09/27/17 [History] Albuterol Sulfate [Ventolin Hfa] 1 spray PO Q4H PRN 09/27/17 [History] Formoterol Fumarate [Perforomist] 1 vial INH BID 09/27/17 [History] Furosemide 40 mg PO DAILY 09/27/17 [History] Gabapentin [Neurontin] 300 mg PO TID 09/27/17 [History] Ipratropium [place] 1 unit INH QID 09/27/17 [History] LORazepam 1 tab PO BID PRN 09/27/17 [History] Montelukast Sodium 10 mg PO DAILY 09/27/17 [History] Roflumilast [Daliresp] 500 mcg PO DAILY 09/27/17 [History] Insulin Detemir [Levemir] 10 unit SQ BID #7 pen 09/29/17 [Rx] Metoprolol Tartrate [Lopressor] 25 mg PO Q12HR 30 Days #60 tab 09/29/17 [Rx] Arformoterol [Brovana] 15 mcg INH BID neb 01/20/18 [Rx] QUEtiapine [SEROquel] 25 mg PO DAILY 06/05/18 [History] Warfarin Sodium [Coumadin] 4 mg PO DAILY 06/05/18 [History] Past Medical History HEENT History: Reports: Allergic Rhinitis, Hard of Hearing, Impaired Vision, Other (See Below) Other HEENT History: trach placed x 2 years ago Cardiovascular History: Reports: Heart Failure, Hypertension, Other (See Below) Other Cardiovascular History: a flutter Respiratory History: Reports: SOB Other Respiratory History: SOB excessive plegm Gastrointestinal History: Reports: Chronic Constipation, GERD Genitourinary History: Reports: Chronic Renal Insuffiency, UTI, Recurrent Other Genitourinary History: no uti recently [employer] 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: Musculoskeletal History: Reports: Arthritis, Back Pain, Chronic, Neck Pain, Chronic Neurological History: Reports: Migraines Psychiatric History: Reports: Anxiety, Depression Endocrine/Metabolic History: Reports: Diabetes, Type II Hematologic History: Reports: Anemia Dermatologic History: Reports: Other (See Below) Other Dermatologic History: bruises easily - Infectious Disease History Infectious Disease History: Reports: Chicken Pox, Measles, MRSA, Rubella - Past Surgical History HEENT Surgical History: Reports: Other (See Below) GI Surgical History: Reports: Hernia, Abdominal Social & Family History - Family History Family Medical History: Noncontributory Cardiac: Reports: Hypertension Respiratory: Reports: Asthma, COPD Psychiatric: Reports: Anxiety - Caffeine Use Caffeine Use: Reports: Coffee - Living Situation & Occupation Living situation: Reports: Single, with Significant Other Occupation: Disabled ED ROS GENERAL - Review of Systems Review Of Systems: Unable To Obtain (unresponsive) ED EXAM, GENERAL - Physical Exam Exam: See Below Exam Limited By: Altered Mental Status General Appearance: Other (arouasable to verbal command very somnolent). No: Alert, No Apparent Distress Eye Exam: Bilateral Eye: EOMI, PERRL Ears: Normal External Exam, Normal Canal, Hearing Grossly Normal, Normal TMs Ear Exam: Bilateral Ear: Auricle Normal, Canal Normal, TM normal Nose: Normal Inspection, Normal Mucosa, No Blood Throat/Mouth: Normal Inspection, Normal Lips, Normal Teeth, Normal Gums, Normal Oropharynx, Normal Voice, No Airway Compromise Head: Atraumatic, Normocephalic Neck: Normal Inspection, Supple, Non-Tender, Full Range of Motion Respiratory/Chest: No Accessory Muscle Use, Decreased Breath Sounds, Other (had tracheostomy tube in palce.normal respiratory rate, with rate aroung 18-20.) Cardiovascular: Normal Peripheral Pulses, Regular Rate, Rhythm, No Edema, No Gallop, No JVD, No Murmur, No Rub GI/Abdominal: Normal Bowel Sounds, Soft, Non-Tender, No Organomegaly, No Distention, No Abnormal Bruit, No Mass Extremities: Normal Inspection, Normal Range of Motion, Non-Tender, Normal Capillary Refill, No Pedal Edema Course - Vital Signs Text/Narrative:: In the emergency room patient is arousable to verbal commands but very somnolescent. Her vitals are stable and she is breathing at her normal respiratory rate. Her SPO2 was 99% when she came into ER, her oxygen has been decreased to 1 litre to maintain her SPO around 92% to make sure there is no CO2 washout. I did immediately go through her meds box and she is short on her tramadol. Pt was given Narcan IV and she did wake up immediately and did claims that she had taken only 3 tramadol yesterday. Also she has a recent diagnosis of lung cancer, she is having her Biopsy scheduled at [facility] this Tuesday. She has developed involuntary jerky tremors, did get CT head to make sure she is not having brain metastasis from the tumor. Her CT head is negative. Her CBC, CMP are stable. Her urine drug screen is positive for opioids, oxycodone, methadone and benzodiazepines. Her ABG is abnormal due to her chronic COPD. I have notified her spouse , who is not sure how she got narcotics or benzo in her system. Pt is awake and responding appropriately. Maintaining her Vitals and SPO2 above 92% on 1 litre on O2 through trach. Will admit patient and monitor. IF she gets more awake through the day will plan on discharge. - Orders/Labs/Meds Orders: Active Orders 24 hr Category Date Time Status Head wo Cont [CT] Stat Exams 10/30/18 04:51 Ordered COMPREHENSIVE METABOLIC PN,CMP [CHEM] Stat Lab 10/30/18 04:42 Ordered Medication Orders Albuterol (Proventil Neb Soln) 2.5 mg INH QID MATTHEW Albuterol (Ventolin Hfa) 0 gm INH Q4H PRN PRN Reason: Dyspnea Arformoterol Tartrate (Brovana) 15 mcg INH BID MATTHEW Desvenlafaxine Succinate (Pristiq) 50 mg PO QPM MATTHEW Digoxin (Lanoxin) 125 mcg PO DAILY MATTHEW Fluticasone Propionate (Flonase) 0 gm NASBOTH DAILY MATTHEW Furosemide (Lasix) 40 mg PO DAILY MATTHEW Gabapentin (Neurontin) 300 mg PO TID MATTHEW Guaifenesin (Mucinex) 600 mg PO BID MATTHEW Hydroxyzine HCl (Atarax) 25 mg PO Q6H PRN PRN Reason: Anxiety Insulin Aspart (Novolog) 4 unit SUBCUT TIDMEALS MATTHEW; Protocol Insulin Detemir (Levemir) 10 unit SUBCUT BID [facility] Ipratropium [place] (Atrovent) 0.5 mg INH QID [facility] Metoprolol Tartrate (Lopressor) 25 mg PO Q12HR [facility] Montelukast Sodium (Singulair) 10 mg PO DAILY [facility] Multivitamins/Minerals/Vitamin C (Childrens Chewable Vitamin) 1 tab PO DAILY@ 1200 [facility] Non-Formulary Medication (Formoterol Fumarate [Perforomist]) 1 vial INH BID [facility] Non-Formulary Medication (Melatonin [Melatonin]) 5 mg PO BEDTIME [facility] Non-Formulary Medication (Umeclidinium [place] [Incruse Ellipta]) 1 puff IH DAILY [facility] Omeprazole (Omeprazole) 20 mg PO DAILY [facility] Prednisone (Prednisone) 20 mg PO DAILY [facility] Quetiapine Fumarate (Seroquel) 25 mg PO DAILY [facility] Roflumilast (Daliresp) 500 mcg PO DAILY [facility] Sodium Chloride (Saline Flush) 10 ml FLUSH ASDIRECTED PRN PRN Reason: Keep Vein Open Tramadol HCl (Ultram) 50 mg PO TID [facility] Warfarin Sodium (Coumadin) 4 mg PO DAILY [facility] Labs: Laboratory Tests 10/30/18 10/30/18 10/30/18 Range/Units 05:30 05:30 05:30 WBC 13.4 H (4.0-11.0) K/uL RBC 4.81 (3.80-5.80) M/uL Hgb 13.3 (11.5-16.5) g/dL Hct 45.0 (37.0-47.0) % MCV 94 (76-96) fL MCH 27.7 (27.0-32.0) pg MCHC 29.6 L (31.0-35.0) g/dL RDW 13.9 (11.0-16.0) % Plt Count 289 (150-500) K/uL MPV 9.2 (6.0-10.0) fL Neut % (Auto) 64.8 (45.0-70.0) % Lymph % (Auto) 16.8 L (20.0-40.0) % Allen % (Auto) 17.5 H (3.0-10.0) % Eos % (Auto) 0.8 L (1.0-5.0) % Baso % (Auto) 0.1 (0.0-0.5) % Neut # (Auto) 8.70 H (2.00-7.50) K/uL Lymph # (Auto) 2.25 (1.50-4.00) K/uL Allen # (Auto) 2.35 H (0.20-0.80) K/uL Eos # (Auto) 0.11 (0.04-0.40) K/uL Baso # (Auto) 0.02 (0.02-0.10) K/uL ABG pH 7.17 L* (7.35-7.45) ABG pCO2 > 130 H* D (35-45) mmHg ABG pO2 57 L* D (80-105) mmHg Jignesh Test Y O2 Delivery Device T-piece Urine Opiates Screen Positive H (NEGATIVE) Ur Oxycodone Screen Positive H (NEGATIVE) Urine Methadone Screen Positive H (NEGATIVE) Ur Barbiturates Screen Negative (NEGATIVE) Ur Tricyclics Screen Negative (NEGATIVE) Ur Phencyclidine Scrn Negative (NEGATIVE) Ur Amphetamine Screen Negative (NEGATIVE) U Methamphetamines Scrn Negative (NEGATIVE) Urine MDMA Screen Negative (NEGATIVE) U Benzodiazepines Scrn Positive H (NEGATIVE) U Cocaine Metab Screen Negative (NEGATIVE) U Marijuana (THC) Screen Negative (NEGATIVE) Meds: Medications Generic Name Dose Route Start Last Admin Trade Name Freq PRN Reason Stop Dose Admin Albuterol 2.5 mg 10/30/18 08:00 Proventil Neb Soln INH QID MATTHEW Albuterol 0 gm 10/30/18 05:51 Ventolin Hfa INH Q4H PRN Dyspnea Arformoterol Tartrate 15 mcg 10/30/18 08:00 Brovana INH BID MATTHEW Desvenlafaxine Succinate 50 mg 10/30/18 20:00 Pristiq PO QPM MATTHEW Digoxin 125 mcg 10/30/18 08:00 Lanoxin PO DAILY MATTHEW Fluticasone Propionate 0 gm 10/30/18 08:00 Flonase NASBOTH DAILY MATTHEW Furosemide 40 mg 10/30/18 08:00 Lasix PO DAILY MATTHEW Gabapentin 300 mg 10/30/18 08:00 Neurontin PO TID MATTHEW Guaifenesin 600 mg 10/30/18 08:00 Mucinex PO BID MATTHEW Hydroxyzine HCl 25 mg 10/30/18 05:51 Atarax PO Q6H PRN Anxiety Insulin Aspart 4 unit 10/30/18 08:00 Novolog SUBCUT TIDMEALS [facility] Protocol Insulin Detemir 10 unit 10/30/18 08:00 Levemir SUBCUT BID [facility] Ipratropium [place] 0.5 mg 10/30/18 08:00 Atrovent INH QID [facility] Metoprolol Tartrate 25 mg 10/30/18 08:00 Lopressor PO Q12HR [facility] Montelukast Sodium 10 mg 10/30/18 08:00 Singulair PO DAILY [facility] Multivitamins/Minerals/Vitamin C 1 tab 10/30/18 12:00 Childrens Chewable Vitamin PO DAILY@1200 [facility] Non-Formulary Medication 1 vial 10/30/18 08:00 Formoterol Fumarate [Perforomist] INH BID [facility] Non-Formulary Medication 5 mg 10/30/18 20:00 Melatonin [Melatonin] PO BEDTIME [facility] Non-Formulary Medication 1 puff 10/30/18 08:00 Umeclidinium [place] [Incruse Ellipta] IH DAILY [facility] Omeprazole 20 mg 10/30/18 08:00 Omeprazole PO DAILY [facility] Prednisone 20 mg 10/30/18 08:00 Prednisone PO DAILY [facility] Quetiapine Fumarate 25 mg 10/30/18 08:00 Seroquel PO DAILY [facility] Roflumilast 500 mcg 10/30/18 08:00 Daliresp PO DAILY [facility] Sodium Chloride 10 ml 10/30/18 05:47 Saline Flush FLUSH ASDIRECTED PRN Keep Vein Open Tramadol HCl 50 mg 10/30/18 08:00 Ultram PO TID [facility] Warfarin Sodium 4 mg 10/30/18 08:00 Coumadin PO DAILY [facility] Departure - Departure Time of Disposition: 05:35 Disposition: Admitted As Inpatient 67 Condition: Fair Clinical Impression: Unresponsive episode, Positive urine drug screen COPD (chronic obstructive pulmonary disease) Qualifiers: COPD type: chronic bronchitis Chronic bronchitis type: unspecified Qualified Code(s): J42 - Unspecified chronic bronchitis - Discharge Information *PRESCRIPTION DRUG MONITORING PROGRAM REVIEWED*: Not Applicable *COPY OF PRESCRIPTION DRUG MONITORING REPORT IN PATIENT ANSHU: Not Applicable - Problem List & Annotations (1) Positive urine drug screen SNOMED Code(s): 773419373, 607496162, 481961314 Code(s): R82.5 - ELEVATED URINE LEVELS OF DRUG/MEDS/BIOL SUBST Status: Acute Current Visit: Yes (2) Unresponsive episode SNOMED Code(s): 859659742 Code(s): R41.89 - OTH SYMPTOMS AND SIGNS W COGNITIVE FUNCTIONS AND AWARENESS Status: Acute Current Visit: Yes (3) COPD (chronic obstructive pulmonary disease) SNOMED Code(s): 15542932 Code(s): J44.9 - CHRONIC OBSTRUCTIVE PULMONARY DISEASE, UNSPECIFIED Status : Chronic Priority: High Current Visit: Yes Qualifiers: COPD type: chronic bronchitis Chronic bronchitis type: unspecified Qualified Code(s): J42 - Unspecified chronic bronchitis - Problem List Review Problem List Initiated/Reviewed/Updated: Yes - My Orders Last 24 Hours: My Active Orders 10/30/18 04:42 COMPREHENSIVE METABOLIC PN,CMP [CHEM] Stat 10/30/18 04:51 Head wo Cont [CT] Stat - Assessment/Plan Admission H&P: Please use this note as an admission H&P Last 24 Hours: My Active Orders 10/30/18 04:42 COMPREHENSIVE METABOLIC PN,CMP [CHEM] Stat 10/30/18 04:51 Head wo Cont [CT] Stat Assessment:: Unresponsive episode Opioid and benzo positive Drug screen COPD Plan: In the emergency room patient is arousable to verbal commands but very somnolescent. Her vitals are stable and she is breathing at her normal respiratory rate. Her SPO2 was 99% when she came into ER, her oxygen has been decreased to 1 litre to maintain her SPO around 92% to make sure there is no CO2 washout. I did immediately go through her meds box and she is short on her tramadol. Pt was given Narcan IV and she did wake up immediately and did claims that she had taken only 3 tramadol yesterday. Also she has a recent diagnosis of lung cancer, she is having her Biopsy scheduled at [facility] this Tuesday. She has developed involuntary jerky tremors, did get CT head to make sure she is not having brain metastasis from the tumor. Her CT head is negative. Her CBC, CMP are stable. Her urine drug screen is positive for opioids, oxycodone, methadone and benzodiazepines. Her ABG is abnormal due to her chronic COPD. I have notified her spouse , who is not sure how she got narcotics or benzo in her system. Pt is awake and responding appropriately. Maintaining her Vitals and SPO2 above 92% on 1 litre on O2 through trach. Will admit patient and monitor. IF she gets more awake through the day will plan on discharge.
[2018-10-30] MEDS ORDERED: Sodium Chloride 0.9% 10 ML Syringe FLUSH PRN (05:47)
[2018-10-30] MEDS ORDERED: hydrOXYzine HCl 25 MG Tab PO PRN (05:51)
[2018-10-30] MEDS ORDERED: Albuterol 8 GM Inhaler INH PRN (05:51)
[2018-10-30] MEDS ORDERED: Naloxone 2 MG/2 ML Syringe IVPUSH STA (06:29)
[2018-10-30] MEDS ORDERED: Fluticasone Propionate Nasal Spray 16 GM Bottle NASBOTH SCH (08:00)
[2018-10-30] MEDS ORDERED: QUEtiapine 25 MG Tab PO SCH (08:00)
[2018-10-30] MEDS ORDERED: Insulin Detemir 100 Units/ML 3 ML Pen SUBCUT SCH (08:00)
[2018-10-30] MEDS ORDERED: Albuterol 0.083% 2.5 MG/3 ML Neb Soln INH SCH (08:00)
[2018-10-30] MEDS ORDERED: predniSONE 5 MG Tab PO SCH (08:00)
[2018-10-30] MEDS ORDERED: FORMOTEROL FUMARATE INH SCH (08:00)
[2018-10-30] MEDS ORDERED: Furosemide 20 MG Tab PO SCH (08:00)
[2018-10-30] MEDS ORDERED: Omeprazole 20 MG Cap.CR PO SCH (08:00)
[2018-10-30] MEDS ORDERED: Ipratropium 0.02% 0.5 MG/2.5 ML Neb Soln INH SCH (08:00)
[2018-10-30] MEDS ORDERED: traMADol 50 MG Tab PO SCH (08:00)
[2018-10-30] MEDS ORDERED: Insulin Aspart 100 Units/ML 3 ML Pen SUBCUT SCH (08:00)
[2018-10-30] MEDS ORDERED: Metoprolol Tartrate 25 MG Tab PO SCH (08:00)
[2018-10-30] MEDS ORDERED: Gabapentin 300 MG Cap PO SCH (08:00)
[2018-10-30] MEDS ORDERED: Warfarin 4 MG Tab PO SCH (08:00)
[2018-10-30] MEDS ORDERED: Non-Formulary Medication 1 Each (Umeclidinium Bromide [Incruse Ellipta] 1 PUFF) IH SCH (08:00)
[2018-10-30] MEDS ORDERED: Roflumilast 500 MCG Tab PO SCH (08:00)
[2018-10-30] MEDS ORDERED: Montelukast 10 MG Tab PO SCH (08:00)
[2018-10-30] MEDS ORDERED: Digoxin 125 MCG Tab PO SCH (08:00)
[2018-10-30] MEDS ORDERED: guaiFENesin 600 MG Tab.ER PO SCH (08:00)
[2018-10-30] MEDS ORDERED: Arformoterol 15 MCG/2 ML Neb Soln INH SCH (08:00)
--- NOTE | 2018-10-30 10:00 | CT ---
DATE OF SERVICE: 10/30/2018 CLINICAL DATA: Right upper extremity tremors. UNENHANCED BRAIN CT: Multislice acquisition through the brain without IV contrast was performed. Motion artifact significantly degrades image quality. Comparison is made to a prior exam dated 08/22/2017. There is mild diffuse cerebral atrophy. No masses or mass effect. No evidence of intracranial hemorrhage. No definite evidence for acute or subacute infarct. IMPRESSION: Motion artifact. No gross abnormalities. Repeat exam is recommended. [id number] [facility]
--- NOTE | 2018-10-30 11:23 | PCM.DCSUM1 ---
Discharge Summary - Hospital Course Free Text/Narrative:: Pt was brought in unresponsive by EMS today color blender. Pt did receive Narcan in the emergency room and she immediately woke up and was responsive for about 10 minutes, before she went back to sleep. Her work up in the ER shoed normal CBC and CMP. Her ABG showed her chronic respiratory failure from her COPD . Her Urine drug screen was positive for oxycodone, opioids, methadone and benzodiazepines. Pt remained somnolescent but was maintaining her vitals stable. Hence was admitted for observation. Apparently now, at 10:30 she is awake and alert and responsive. She claims she feels fine. She is not have any respiratory symptoms. Maintaining her SPO2 around 92-94% on 1 litre oxygen. Apparently on questioning about her opioids use. Pt claims that she might have taken a few extra pill of oxycodone or tramadol or Ativan over the past few days, as she wanted to sleep well. I have clearly tired to explain to patient that with her Severe end stage COPD and her still smoking , she already has no respiratory reserve and, over that taking multiple opioids and benzodiazepines only pushes her into respiratory depression and she develops unresponsive episodes. Pt claims she understands that, but she does this because she wants to sleep well. Apparently the best thing to do is to slowly taper her opioids and benzo. Pt is doing well now, alert oriented and back to herself. Stressed to stay away form narcotics.Pt has been discharge. Followup in clinic in next 3-4 days for recheck. Brief History: Presented to emergency room by EMS unresponsive today color blender. Workup showed Opiods and benzo induced respiratory depression. Diagnosis: Stroke: No - Discharge Data Discharge Date: 10/30/18 Discharge Disposition: Home, Self-Care 01 Condition: Fair - Discharge Diagnosis/Problem(s) (1) Positive urine drug screen SNOMED Code(s): 052903216, 559312920, 023656926 ICD Code: R82.5 - ELEVATED URINE LEVELS OF DRUG/MEDS/BIOL SUBST Status: Acute Current Visit: Yes (2) Unresponsive episode SNOMED Code(s): 330897140 ICD Code: R41.89 - OTH SYMPTOMS AND SIGNS W COGNITIVE FUNCTIONS AND AWARENESS Status: Acute Current Visit: Yes (3) COPD (chronic obstructive pulmonary disease) SNOMED Code(s): 54469139 ICD Code: J44.9 - CHRONIC OBSTRUCTIVE PULMONARY DISEASE, UNSPECIFIED Status : Chronic Priority: High Current Visit: Yes Qualifiers: COPD type: chronic bronchitis Chronic bronchitis type: unspecified Qualified Code(s): J42 - Unspecified chronic bronchitis - Patient Instructions Diet: Regular Diet as Tolerated Fluid Restriction: 1500 mL Activity: As Tolerated Showering/Bathing: May Shower - Discharge Plan *PRESCRIPTION DRUG MONITORING PROGRAM REVIEWED*: Not Applicable *COPY OF PRESCRIPTION DRUG MONITORING REPORT IN PATIENT ANSHU: Not Applicable Home Medications: Home Meds guaiFENesin [Mucinex] 600 mg PO BID 10/02/14 [History] Omeprazole 20 mg PO DAILY 11/04/14 [History] predniSONE 20 mg PO DAILY 11/04/14 [History] Fluticasone Propionate [Flonase] 1 spray NASBOTH DAILY 06/04/15 [History] Desvenlafaxine [Pristiq] 50 mg PO QPM 01/03/16 [History] traMADol [Ultram] 50 mg PO TID 01/03/16 [History] Melatonin 5 mg PO BEDTIME 06/22/16 [History] Multivitamins [Childrens Chewable Vitamin] 1 tab PO DAILY@1200 06/22/16 [History ] Umeclidinium [place] [Incruse Ellipta] 1 puff IH DAILY 09/27/16 [History] Digoxin [Lanoxin] 125 mcg PO DAILY tablet 04/01/17 [Rx] Insulin Aspart [NovoLOG] 0 unit SUBCUT TIDMEALS pen 04/01/17 [Rx] hydrOXYzine HCl [hydrOXYzine] 25 mg PO Q6H PRN #30 tablet 04/01/17 [Rx] Albuterol Sulfate 2.5 mg IH QID 09/27/17 [History] Albuterol Sulfate [Ventolin Hfa] 1 spray PO Q4H PRN 09/27/17 [History] Formoterol Fumarate [Perforomist] 1 vial INH BID 09/27/17 [History] Furosemide 40 mg PO DAILY 09/27/17 [History] Gabapentin [Neurontin] 300 mg PO TID 09/27/17 [History] Ipratropium [place] 1 unit INH QID 09/27/17 [History] Montelukast Sodium 10 mg PO DAILY 09/27/17 [History] Roflumilast [Daliresp] 500 mcg PO DAILY 09/27/17 [History] Insulin Detemir [Levemir] 10 unit SQ BID #7 pen 09/29/17 [Rx] Metoprolol Tartrate [Lopressor] 25 mg PO Q12HR 30 Days #60 tab 09/29/17 [Rx] Arformoterol [Brovana] 15 mcg INH BID neb 01/20/18 [Rx] QUEtiapine [SEROquel] 25 mg PO DAILY 06/05/18 [History] Warfarin Sodium [Coumadin] 4 mg PO DAILY 06/05/18 [History] Forms: ED Department Discharge Referrals: PCP,None [Primary Care Provider] - - Discharge Summary/Plan Comment DC Time >30 min.: Yes - General Info Date of Service: 10/30/18 Subjective Update: Pt is awake and alert, she is ambulating and talking. No more dizziness or sleepiness. HAs no complaints. Breathing rnomal on oxygen 1 litre/min Functional Status: Reports: Pain Controlled, Tolerating Diet, Ambulating, Urinating - Review of Systems General: Denies: Fever, Weakness, Fatigue HEENT: Denies: Ear Pain, Sore Throat, Rhinitis Pulmonary: Denies: Shortness of Breath, Sputum, Hemoptysis Cardiovascular: Denies: Chest Pain, Palpitations, Edema Gastrointestinal: Denies: Abdominal Pain, Constipation, Nausea, Vomiting Genitourinary: Denies: Dysuria, Frequency Musculoskeletal: Denies: Joint Pain, Joint Swelling Skin: Denies: Bruising, Pruritis, Rash Neurological: Denies: Confusion, Dizziness, Headache, Numbness, Tingling - Patient Data Vitals - Most Recent: Last Vital Signs Temp Pulse 77 10/30/18 06:19 Resp 20 10/30/18 06:19 BP 136/59 L 10/30/18 06:19 Pulse Ox 100 10/30/18 06:19 Lab Results - Last 24 hrs: Laboratory Results - last 24 hr 10/30/18 10/30/18 10/30/18 Range/Units 05:30 05:30 05:30 WBC 13.4 H (4.0-11.0) K/uL RBC 4.81 (3.80-5.80) M/uL Hgb 13.3 (11.5-16.5) g/dL Hct 45.0 (37.0-47.0) % MCV 94 (76-96) fL MCH 27.7 (27.0-32.0) pg MCHC 29.6 L (31.0-35.0) g/dL RDW 13.9 (11.0-16.0) % Plt Count 289 (150-500) K/uL MPV 9.2 (6.0-10.0) fL Neut % (Auto) 64.8 (45.0-70.0) % Lymph % (Auto) 16.8 L (20.0-40.0) % [place] % (Auto) 17.5 H (3.0-10.0) % Eos % (Auto) 0.8 L (1.0-5.0) % Baso % (Auto) 0.1 (0.0-0.5) % Neut # (Auto) 8.70 H (2.00-7.50) K/uL Lymph # (Auto) 2.25 (1.50-4.00) K/uL [place] # (Auto) 2.35 H (0.20-0.80) K/uL Eos # (Auto) 0.11 (0.04-0.40) K/uL Baso # (Auto) 0.02 (0.02-0.10) K/uL ABG pH (7.35-7.45) ABG pCO2 (35-45) mmHg ABG pO2 (80-105) mmHg Jignesh Test O2 Delivery Device Sodium 141 (136-145) mmol/L Potassium 3.5 (3.5-5.1) mmol/L Chloride 85 L* (98-107) mmol/L Carbon Dioxide 47.0 H (21.0-32.0) mmol/L Anion Gap 12.5 (5.0-15.0) mmol/L BUN 34 H D (8-26) mg/dL Creatinine 1.60 H D (0.55-1.02) mg/dL Est Cr Clr Drug Dosing TNP Estimated GFR (MDRD) 33 L (>60) MLS/MIN BUN/Creatinine Ratio 21.3 (6-25) Glucose 44 L* D (74-100) mg/dL Calcium 8.5 (8.5-10.1) mg/dL Total Bilirubin 0.2 D (0.0-1.0) mg/dL AST 43 H (15-37) U/L ALT 56 (12-78) U/L Alkaline Phosphatase 105 (46-116) U/L Total Protein 7.1 (6.4-8.2) g/dL Albumin 3.0 L (3.4-5.0) g/dL Globulin 4.1 (2.2-4.2) g/dL Albumin/Globulin Ratio 0.7 L (0.8-2.0) Urine Opiates Screen Positive H (NEGATIVE) Ur Oxycodone Screen Positive H (NEGATIVE) Urine Methadone Screen Positive H (NEGATIVE) Ur Barbiturates Screen Negative (NEGATIVE) Ur Tricyclics Screen Negative (NEGATIVE) Ur Phencyclidine Scrn Negative (NEGATIVE) Ur Amphetamine Screen Negative (NEGATIVE) U Methamphetamines Scrn Negative (NEGATIVE) Urine MDMA Screen Negative (NEGATIVE) U Benzodiazepines Scrn Positive H (NEGATIVE) U Cocaine Metab Screen Negative (NEGATIVE) U Marijuana (THC) Screen Negative (NEGATIVE) 10/30/18 Range/Units 05:30 WBC (4.0-11.0) K/uL RBC (3.80-5.80) M/uL Hgb (11.5-16.5) g/dL Hct (37.0-47.0) % MCV (76-96) fL MCH (27.0-32.0) pg MCHC (31.0-35.0) g/dL RDW (11.0-16.0) % Plt Count (150-500) K/uL MPV (6.0-10.0) fL Neut % (Auto) (45.0-70.0) % Lymph % (Auto) (20.0-40.0) % [place] % (Auto) (3.0-10.0) % Eos % (Auto) (1.0-5.0) % Baso % (Auto) (0.0-0.5) % Neut # (Auto) (2.00-7.50) K/uL Lymph # (Auto) (1.50-4.00) K/uL [place] # (Auto) (0.20-0.80) K/uL Eos # (Auto) (0.04-0.40) K/uL Baso # (Auto) (0.02-0.10) K/uL ABG pH 7.17 L* (7.35-7.45) ABG pCO2 > 130 H* D (35-45) mmHg ABG pO2 57 L* D (80-105) mmHg Jignesh Test Y O2 Delivery Device T-piece Sodium (136-145) mmol/L Potassium (3.5-5.1) mmol/L Chloride (98-107) mmol/L Carbon Dioxide (21.0-32.0) mmol/L Anion Gap (5.0-15.0) mmol/L BUN (8-26) mg/dL Creatinine (0.55-1.02) mg/dL Est Cr Clr Drug Dosing Estimated GFR (MDRD) (>60) MLS/MIN BUN/Creatinine Ratio (6-25) Glucose (74-100) mg/dL Calcium (8.5-10.1) mg/dL Total Bilirubin (0.0-1.0) mg/dL AST (15-37) U/L ALT (12-78) U/L Alkaline Phosphatase (46-116) U/L Total Protein (6.4-8.2) g/dL Albumin (3.4-5.0) g/dL Globulin (2.2-4.2) g/dL Albumin/Globulin Ratio (0.8-2.0) Urine Opiates Screen (NEGATIVE) Ur Oxycodone Screen (NEGATIVE) Urine Methadone Screen (NEGATIVE) Ur Barbiturates Screen (NEGATIVE) Ur Tricyclics Screen (NEGATIVE) Ur Phencyclidine Scrn (NEGATIVE) Ur Amphetamine Screen (NEGATIVE) U Methamphetamines Scrn (NEGATIVE) Urine MDMA Screen (NEGATIVE) U Benzodiazepines Scrn (NEGATIVE) U Cocaine Metab Screen (NEGATIVE) U Marijuana (THC) Screen (NEGATIVE) Med Orders - Current: Current Medications Albuterol (Proventil Neb Soln) 2.5 mg INH QID MATTHEW Albuterol (Ventolin Hfa) 0 gm INH Q4H PRN PRN Reason: Dyspnea Arformoterol Tartrate (Brovana) 15 mcg INH BID [facility] Desvenlafaxine Succinate (Pristiq) 50 mg PO QPM MATTEHW Digoxin (Lanoxin) 125 mcg PO DAILY MATTHEW Fluticasone Propionate (Flonase) 0 gm NASBOTH DAILY MATTHEW Furosemide (Lasix) 40 mg PO DAILY MATTHEW Gabapentin (Neurontin) 300 mg PO TID MATTHEW Guaifenesin (Mucinex) 600 mg PO BID [facility] Hydroxyzine HCl (Atarax) 25 mg PO Q6H PRN PRN Reason: Anxiety Insulin Aspart (Novolog) 4 unit SUBCUT TIDMEALS MATTHEW; Protocol Insulin Detemir (Levemir) 10 unit SUBCUT BID [facility] Ipratropium [place] (Atrovent) 0.5 mg INH QID [facility] Metoprolol Tartrate (Lopressor) 25 mg PO Q12HR [facility] Montelukast Sodium (Singulair) 10 mg PO DAILY [facility] Multivitamins/Minerals/Vitamin C (Childrens Chewable Vitamin) 1 tab PO DAILY@ 1200 [facility] Non-Formulary Medication (Formoterol Fumarate [Perforomist]) 1 vial INH BID [facility] Non-Formulary Medication (Melatonin [Melatonin]) 5 mg PO BEDTIME [facility] Non-Formulary Medication (Umeclidinium [place] [Incruse Ellipta]) 1 puff IH DAILY [facility] Omeprazole (Omeprazole) 20 mg PO DAILY [facility] Prednisone (Prednisone) 20 mg PO DAILY [facility] Quetiapine Fumarate (Seroquel) 25 mg PO DAILY [facility] Roflumilast (Daliresp) 500 mcg PO DAILY [facility] Sodium Chloride (Saline Flush) 10 ml FLUSH ASDIRECTED PRN PRN Reason: Keep Vein Open Tramadol HCl (Ultram) 50 mg PO TID [facility] Warfarin Sodium (Coumadin) 4 mg PO DAILY [facility] Discontinued Medications Naloxone HCl (Narcan) 1 mg IVPUSH ONETIME STA Stop: 10/30/18 06:30 Last Admin: 10/30/18 04:44 Dose: 1 mg - Exam General: Reports: Alert, Oriented, Cooperative HEENT: Reports: Pupils Equal, Pupils Reactive, EOMI, Mucous Membr. Moist/[place] Neck: Reports: Supple Lungs: Reports: Normal Respiratory Effort, Decreased Breath Sounds. Denies: Crackles, Rales, Rhonchi Cardiovascular: Reports: Regular Rate, Regular Rhythm GI/Abdominal Exam: Normal Bowel Sounds, Soft, Non-Tender, No Organomegaly, No Distention, No Abnormal Bruit, No Mass, Pelvis Stable Back Exam: Reports: Normal Inspection Extremities: Normal Inspection, Normal Range of Motion, Non-Tender, No Pedal Edema, Normal Capillary Refill Skin: Reports: Warm, Intact
[2018-10-30] MEDS ORDERED: Multivitamin, Childrens Tab.Chew PO SCH (12:00)
[2018-10-30 16:26] VITALS: BP 155/67
[2018-10-30] MEDS ORDERED: Nystatin Crm 30 GM Tube TOP SCH (20:00)
[2018-10-30] MEDS ORDERED: Non-Formulary Medication 1 Each (Melatonin [Melatonin] 5 MG) PO SCH (20:00)
[2018-10-30] MEDS ORDERED: Desvenlafaxine 50 MG Tab.ER PO SCH (20:00)
== END 2018-10-30 14:10 | disposition home or self-care (01) | DRG 918 ==
LOC: LB.ED 03:44 → UNDOADMOB 05:35 → LB.MS 05:35 → OBSVTOIN 05:47 → LB.MS 05:47
PROVIDERS: ADMIT Family Medicine; ATTEND Family Medicine
DX: T40.4X1A Poisoning by other synthetic narcotics, accidental (unintentional), initial encounter (principal); C34.90 Malignant neoplasm of unspecified part of unspecified bronchus or lung; I13.0 Hypertensive heart and chronic kidney disease with heart failure and stage 1 through stage 4 chronic kidney disease, or unspecified chronic kidney disease; J96.10 Chronic respiratory failure, unspecified whether with hypoxia or hypercapnia; T40.2X1A Poisoning by other opioids, accidental (unintentional), initial encounter; T42.4X1A Poisoning by benzodiazepines, accidental (unintentional), initial encounter; R41.82 Altered mental status, unspecified; J44.9 Chronic obstructive pulmonary disease, unspecified; H54.7 Unspecified visual loss; H91.90 Unspecified hearing loss, unspecified ear; I50.9 Heart failure, unspecified; K21.9 Gastro-esophageal reflux disease without esophagitis; E11.22 Type 2 diabetes mellitus with diabetic chronic kidney disease; G89.29 Other chronic pain; N18.9 Chronic kidney disease, unspecified; M19.90 Unspecified osteoarthritis, unspecified site; M54.9 Dorsalgia, unspecified; M54.2 Cervicalgia; G43.909 Migraine, unspecified, not intractable, without status migrainosus; F41.9 Anxiety disorder, unspecified; F32.9 Major depressive disorder, single episode, unspecified; D64.9 Anemia, unspecified; Z86.14 Personal history of Methicillin resistant Staphylococcus aureus infection; Z88.2 Allergy status to sulfonamides; Z88.8 Allergy status to other drugs, medicaments and biological substances; Z88.0 Allergy status to penicillin; Z91.013 Allergy to seafood; Z79.01 Long term (current) use of anticoagulants; Z79.4 Long term (current) use of insulin; Z79.52 Long term (current) use of systemic steroids; R06.02 Shortness of breath; R40.0 Somnolence; Z79.899 Other long term (current) drug therapy; Z87.440 Personal history of urinary (tract) infections; Z93.0 Tracheostomy status
CPT/HCPCS: 36415; 36600; 70450; 80053; 80307; 82803; 85025; J2310

== ENCOUNTER 2018-11-22 10:40 | Emergency (ER) | payer MEDICARE, MEDICAID ==
[2013-05-14 13:14] VITALS: BP 154/76
[2018-11-22 13:32] VITALS: BP 154/76
[2018-11-22] MEDS: Albuterol 0.083% 2.5 MG/3 ML Neb Soln ONE (14:45)
--- NOTE | 2018-11-22 14:46 | EDM.PDOC ---
ED HPI GENERAL MEDICAL PROBLEM - General Chief Complaint: Respiratory Problem Stated Complaint: BLOOD SUGAR ISSUES Time Seen by Provider: 11/22/18 12:15 Source of Information: Reports: Patient History Limitations: Reports: No Limitations - History of Present Illness INITIAL COMMENTS - FREE TEXT/NARRATIVE: This is a 63yo F here for concerns of increasing shortness of breath and trouble breathing. She has been diagnosed with Lung cancer and has a f/u with Oncology tomorrow. She denies any fever or chills and per patient does actually feel better than she has for many days today. Patient denies other concerns except for the shortness of breath. Onset: Sudden Duration: Hour(s):, Getting Worse Location: Reports: Chest Severity: Moderate Improves with: Reports: None Worsens with: Reports: Movement Associated Symptoms: Reports: Shortness of Breath - Related Data Allergies Allergy/AdvReac Type Severity Reaction Status Date / Time Penicillins Allergy Unknown Edema Verified 10/30/18 03:45 shellfish derived Allergy Unknown Anaphylactic Verified 10/30/18 03:45 Shock Sulfa (Sulfonamide Allergy Unknown Edema Verified 10/30/18 03:45 Antibiotics) clonidine AdvReac Intermediate Lethargy Verified 10/30/18 03:45 klonopin AdvReac Lethargy Uncoded 10/30/18 03:45 Home Meds: Home Meds guaiFENesin [Mucinex] 600 mg PO BID 10/02/14 [History] Omeprazole 20 mg PO DAILY 11/04/14 [History] predniSONE 20 mg PO DAILY 11/04/14 [History] Fluticasone Propionate [Flonase] 1 spray NASBOTH DAILY 06/04/15 [History] Desvenlafaxine [Pristiq] 50 mg PO QPM 01/03/16 [History] traMADol [Ultram] 50 mg PO TID 01/03/16 [History] Melatonin 5 mg PO BEDTIME 06/22/16 [History] Multivitamins [Childrens Chewable Vitamin] 1 tab PO DAILY@1200 06/22/16 [History ] Umeclidinium [place] [Incruse Ellipta] 1 puff IH DAILY 09/27/16 [History] Digoxin [Lanoxin] 125 mcg PO DAILY tablet 04/01/17 [Rx] Insulin Aspart [NovoLOG] 0 unit SUBCUT TIDMEALS pen 09/08/17 [Rx] hydrOXYzine HCl [hydrOXYzine] 25 mg PO Q6H PRN #30 tablet 04/01/17 [Rx] Albuterol Sulfate 2.5 mg IH QID 09/27/17 [History] Albuterol Sulfate [Ventolin Hfa] 1 spray PO Q4H PRN 09/27/17 [History] Formoterol Fumarate [Perforomist] 1 vial INH BID 09/27/17 [History] Furosemide 40 mg PO DAILY 09/27/17 [History] Gabapentin [Neurontin] 300 mg PO TID 09/27/17 [History] Ipratropium [place] 1 unit INH QID 09/27/17 [History] Montelukast Sodium 10 mg PO DAILY 09/27/17 [History] Roflumilast [Daliresp] 500 mcg PO DAILY 09/27/17 [History] Insulin Detemir [Levemir] 10 unit SQ BID #7 pen 09/29/17 [Rx] Metoprolol Tartrate [Lopressor] 25 mg PO Q12HR 30 Days #60 tab 09/29/17 [Rx] Arformoterol [Brovana] 15 mcg INH BID neb 01/20/18 [Rx] QUEtiapine [SEROquel] 25 mg PO DAILY 06/05/18 [History] Warfarin Sodium [Coumadin] 4 mg PO DAILY 06/05/18 [History] Past Medical History HEENT History: Reports: Allergic Rhinitis, Hard of Hearing, Impaired Vision, Other (See Below) Other HEENT History: trach placed x 2 years ago Cardiovascular History: Reports: Heart Failure, Hypertension, Other (See Below) Other Cardiovascular History: a flutter Respiratory History: Reports: SOB Other Respiratory History: SOB excessive plegm Gastrointestinal History: Reports: Chronic Constipation, GERD Genitourinary History: Reports: Chronic Renal Insuffiency, UTI, Recurrent Other Genitourinary History: no uti recently 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 PROCESSOR History: Reports: Other MICROFILM PROCESSOR History: hysterectomy Musculoskeletal History: Reports: Arthritis, Back Pain, Chronic, Neck Pain, Chronic Neurological History: Reports: Migraines Psychiatric History: Reports: Anxiety, Depression Endocrine/Metabolic History: Reports: Diabetes, Type II Hematologic History: Reports: Anemia Oncologic (Cancer) History: Reports: Lung Dermatologic History: Reports: Other (See Below) Other Dermatologic History: bruises easily - Infectious Disease History Infectious Disease History: Reports: Chicken Pox, 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, Other - Past Surgical History HEENT Surgical History: Reports: Other (See Below) GI Surgical History: Reports: Hernia, Abdominal Oncologic Surgical History: Reports: Other (See Below) Other Oncologic Surgeries/Procedures: hx biopsy of lung for cancer diagnosis Social & Family History - Family History Family Medical History: Noncontributory Cardiac: Reports: Hypertension Respiratory: Reports: Asthma, COPD Psychiatric: Reports: Anxiety - Tobacco Use Smoking Status *Q: Current Every Day Smoker Years of Tobacco use: 45 Packs/Tins Daily: 1 - Caffeine Use Caffeine Use: Reports: Coffee - Recreational Drug Use Recreational Drug Use: No - Living Situation & Occupation Living situation: Reports: Single, with Significant Other Occupation: Disabled ED ROS GENERAL - Review of Systems Review Of Systems: ROS reveals no pertinent complaints other than HPI. ED EXAM, GENERAL - Physical Exam Exam: See Below Exam Limited By: No Limitations General Appearance: Alert, WD/WN, Mild Distress, Moderate Distress Eye Exam: Bilateral Eye: EOMI, PERRL Ears: Normal External Exam Nose: Normal Inspection Throat/Mouth: Normal Inspection Head: Atraumatic, Normocephalic Neck: Normal Inspection Respiratory/Chest: Decreased Breath Sounds, Rhonchi Cardiovascular: Normal Peripheral Pulses GI/Abdominal: Normal Bowel Sounds Back Exam: Normal Inspection Extremities: Normal Inspection Neurological: Alert, Oriented Psychiatric: Normal Affect, Normal Mood Skin Exam: Warm, Dry, Intact Course - Vital Signs Last Recorded V/S: Last Vital Signs Temp 36.5 C 11/22/18 12:00 Pulse 96 11/22/18 13:00 Resp 20 11/22/18 13:00 BP 154/76 H 11/22/18 13:00 Pulse Ox 97 11/22/18 13:00 - Orders/Labs/Meds Orders: Active Orders 24 hr Category Date Time Status EKG Documentation Completion [RC] ASDIRECTED Care 11/22/18 12:15 Active Chest 1V Frontal [CR] Stat Exams 11/22/18 11:00 Taken Labs: Laboratory Tests 11/22/18 11/22/18 11/22/18 Range/Units 10:56 12:15 12:20 WBC 10.0 D (4.0-11.0) K/uL RBC 4.46 (3.80-5.80) M/uL Hgb 12.3 (11.5-16.5) g/dL Hct 40.6 (37.0-47.0) % MCV 91 (76-96) fL MCH 27.6 (27.0-32.0) pg MCHC 30.3 L (31.0-35.0) g/dL RDW 14.7 (11.0-16.0) % Plt Count 283 (150-500) K/uL MPV 9.0 (6.0-10.0) fL Neut % (Auto) 81.5 H (45.0-70.0) % Lymph % (Auto) 10.1 L (20.0-40.0) % [place] % (Auto) 7.2 (3.0-10.0) % Eos % (Auto) 0.8 L (1.0-5.0) % Baso % (Auto) 0.4 (0.0-0.5) % Neut # (Auto) 8.16 H (2.00-7.50) K/uL Lymph # (Auto) 1.01 L (1.50-4.00) K/uL [place] # (Auto) 0.72 (0.20-0.80) K/uL Eos # (Auto) 0.08 (0.04-0.40) K/uL Baso # (Auto) 0.04 (0.02-0.10) K/uL VBG pH 7.37 (7.31-7.41) VBG pCO2 81.1 H (41-51) mm/Hg VBG pO2 25 L (30-50) mm/Hg VBG HCO3 47.0 H (23.0-28.0) mmol/L VBG O2 Saturation 40 L (60-85) % VBG Base Excess 22 H (-2-3) mm/L O2 Delivery Device Nasal cannula Sodium (136-145) mmol/L Potassium (3.5-5.1) mmol/L Chloride (98-107) mmol/L Carbon Dioxide (21.0-32.0) mmol/L Anion Gap (5.0-15.0) mmol/L BUN (8-26) mg/dL Creatinine (0.55-1.02) mg/dL Est Cr Clr Drug Dosing Estimated GFR (MDRD) (>60) MLS/MIN BUN/Creatinine Ratio (6-25) Glucose (74-100) mg/dL Calcium (8.5-10.1) mg/dL Total Bilirubin (0.0-1.0) mg/dL AST (15-37) U/L ALT (12-78) U/L Alkaline Phosphatase (46-116) U/L Troponin I (0.000-0.060) ng/mL Total Protein (6.4-8.2) g/dL Albumin (3.4-5.0) g/dL Globulin (2.2-4.2) g/dL Albumin/Globulin Ratio (0.8-2.0) TSH, Ultra Sensitive (0.358-3.740) uIU/mL Urine Color Yellow Urine Appearance Clear (CLEAR) Urine pH 7.0 (5.0-8.0) Ur Specific [place] 1.020 (1.003-1.030) Urine Protein Negative (NEGATIVE) mg/dL Urine Glucose (UA) Negative (NEGATIVE) mg/dL Urine Ketones Negative (NEGATIVE) mg/dL Urine Occult Blood Trace-intact H (NEGATIVE) Urine Nitrite Negative (NEGATIVE) Urine Bilirubin Negative (NEGATIVE) Urine Urobilinogen 0.2 (0.2-1.0) E.U./dL Ur Leukocyte Esterase Negative (NEGATIVE) Urine RBC 0-5 H /HPF Urine WBC Not seen /HPF Ur Squamous Epith Cells Rare /HPF Urine Bacteria Not seen /HPF Urine Opiates Screen (NEGATIVE) Ur Oxycodone Screen (NEGATIVE) Urine Methadone Screen (NEGATIVE) Ur Barbiturates Screen (NEGATIVE) Ur Tricyclics Screen (NEGATIVE) Ur Phencyclidine Scrn (NEGATIVE) Ur Amphetamine Screen (NEGATIVE) U Methamphetamines Scrn (NEGATIVE) Urine MDMA Screen (NEGATIVE) U Benzodiazepines Scrn (NEGATIVE) U Cocaine Metab Screen (NEGATIVE) U Marijuana (THC) Screen (NEGATIVE) 11/22/18 11/22/18 11/22/18 Range/Units 12:20 12:30 12:46 WBC (4.0-11.0) K/uL RBC (3.80-5.80) M/uL Hgb (11.5-16.5) g/dL Hct (37.0-47.0) % MCV (76-96) fL MCH (27.0-32.0) pg MCHC (31.0-35.0) g/dL RDW (11.0-16.0) % Plt Count (150-500) K/uL MPV (6.0-10.0) fL Neut % (Auto) (45.0-70.0) % Lymph % (Auto) (20.0-40.0) % [place] % (Auto) (3.0-10.0) % Eos % (Auto) (1.0-5.0) % Baso % (Auto) (0.0-0.5) % Neut # (Auto) (2.00-7.50) K/uL Lymph # (Auto) (1.50-4.00) K/uL [place] # (Auto) (0.20-0.80) K/uL Eos # (Auto) (0.04-0.40) K/uL Baso # (Auto) (0.02-0.10) K/uL VBG pH (7.31-7.41) VBG pCO2 (41-51) mm/Hg VBG pO2 (30-50) mm/Hg VBG HCO3 (23.0-28.0) mmol/L VBG O2 Saturation (60-85) % VBG Base Excess (-2-3) mm/L O2 Delivery Device Sodium 141 (136-145) mmol/L Potassium 4.1 (3.5-5.1) mmol/L Chloride 97 L (98-107) mmol/L Carbon Dioxide 42.6 H (21.0-32.0) mmol/L Anion Gap 5.5 (5.0-15.0) mmol/L BUN 11 D (8-26) mg/dL Creatinine 0.91 D (0.55-1.02) mg/dL Est Cr Clr Drug Dosing TNP Estimated GFR (MDRD) > 60 (>60) MLS/MIN BUN/Creatinine Ratio 12.1 (6-25) Glucose 157 H D (74-100) mg/dL Calcium 8.6 (8.5-10.1) mg/dL Total Bilirubin 0.3 D (0.0-1.0) mg/dL AST 16 (15-37) U/L ALT 21 (12-78) U/L Alkaline Phosphatase 104 (46-116) U/L Troponin I < 0.017 (0.000-0.060) ng/mL Total Protein 6.7 (6.4-8.2) g/dL Albumin 2.7 L (3.4-5.0) g/dL Globulin 4.0 (2.2-4.2) g/dL Albumin/Globulin Ratio 0.7 L (0.8-2.0) TSH, Ultra Sensitive 0.423 (0.358-3.740) uIU/mL Urine Color Urine Appearance (CLEAR) Urine pH (5.0-8.0) Ur Specific [place] (1.003-1.030) Urine Protein (NEGATIVE) mg/dL Urine Glucose (UA) (NEGATIVE) mg/dL Urine Ketones (NEGATIVE) mg/dL Urine Occult Blood (NEGATIVE) Urine Nitrite (NEGATIVE) Urine Bilirubin (NEGATIVE) Urine Urobilinogen (0.2-1.0) E.U./dL Ur Leukocyte Esterase (NEGATIVE) Urine RBC /HPF Urine WBC /HPF Ur Squamous Epith Cells /HPF Urine Bacteria /HPF Urine Opiates Screen Negative (NEGATIVE) Ur Oxycodone Screen Positive H (NEGATIVE) Urine Methadone Screen Negative (NEGATIVE) Ur Barbiturates Screen Negative (NEGATIVE) Ur Tricyclics Screen Negative (NEGATIVE) Ur Phencyclidine Scrn Negative (NEGATIVE) Ur Amphetamine Screen Negative (NEGATIVE) U Methamphetamines Scrn Negative (NEGATIVE) Urine MDMA Screen Negative (NEGATIVE) U Benzodiazepines Scrn Negative (NEGATIVE) U Cocaine Metab Screen Negative (NEGATIVE) U Marijuana (THC) Screen Negative (NEGATIVE) Departure - Departure Time of Disposition: 15:00 Disposition: Home, Self-Care 01 Condition: Fair Clinical Impression: COPD exacerbation - Discharge Information Instructions: Levofloxacin tablets, Prednisone tablets Referrals: PCP,None [Primary Care Provider] - Forms: ED Department Discharge Care Plan Goals: Follow up at clinic next week. Call [phone] to make an appointment. Take 60mg prednisone x 10 days. Take Levofloxin 750mg daily x 10 days. - Problem List & Annotations (1) COPD exacerbation SNOMED Code(s): 147466239 Code(s): J44.1 - CHRONIC OBSTRUCTIVE PULMONARY DISEASE W (ACUTE) EXACERBATION Status: Acute Priority: High Current Visit: Yes - Problem List Review Problem List Initiated/Reviewed/Updated: Yes - My Orders Last 24 Hours: My Active Orders 11/22/18 11:00 Chest 1V Frontal [CR] Stat 11/22/18 12:15 EKG Documentation Completion [RC] ASDIRECTED - Assessment/Plan Last 24 Hours: My Active Orders 11/22/18 11:00 Chest 1V Frontal [CR] Stat 11/22/18 12:15 EKG Documentation Completion [RC] ASDIRECTED Plan: Counseled on supportive care and conservative management. Discussed use of nebulizers and new prescription of antibiotics (levofloxacin) and side effects. Discussed increased prednisone for a 10 day burst and diflucan for side effects of antibiotics. Patient to f/u in clinic by next week for f/u. Counseled on rtc or ER as needed if symptoms persist or worsen. F/u as directed.
[2018-11-22] MEDS: Albuterol 0.083% 2.5 MG/3 ML Neb Soln NEB ONE (16:49)
--- NOTE | 2018-11-23 08:43 | CR ---
DATE OF SERVICE: 11/22/18 CLINICAL DATA: Shortness of breath. AP CHEST: Comparison is made to a prior exam dated 10/22/18. The patient has taken a poor inspiration and rotated to the right. The tracheostomy tube remains in adequate position. The heart is enlarged. It has increased in size from the prior study. The aorta is ectatic. There is subtle increased density in the right lower lung on today's study suggesting infiltrate or atelectasis. Pneumonia should at least be considered. The lungs otherwise clear. No pneumothorax. No pleural effusions. [id number] [facility]
== END 2018-11-22 15:00 | disposition home or self-care (01) ==
LOC: LB.ED 10:40
DX: J44.1 Chronic obstructive pulmonary disease with (acute) exacerbation (principal); I13.0 Hypertensive heart and chronic kidney disease with heart failure and stage 1 through stage 4 chronic kidney disease, or unspecified chronic kidney disease; I50.9 Heart failure, unspecified; N18.9 Chronic kidney disease, unspecified; F41.9 Anxiety disorder, unspecified; E11.22 Type 2 diabetes mellitus with diabetic chronic kidney disease; Z79.01 Long term (current) use of anticoagulants; Z79.899 Other long term (current) drug therapy; Z79.4 Long term (current) use of insulin; M19.90 Unspecified osteoarthritis, unspecified site; K21.9 Gastro-esophageal reflux disease without esophagitis; Z88.0 Allergy status to penicillin; Z88.2 Allergy status to sulfonamides; Z91.013 Allergy to seafood; Z88.8 Allergy status to other drugs, medicaments and biological substances
CPT/HCPCS: 36415; 71045; 80053; 80307; 81001; 82803; 84443; 84484; 85025; 93005; 99285; A0425; A0429

== ENCOUNTER 2019-02-15 09:28 | Observation (INO) | payer MEDICARE, MEDICAID ==
[2019-02-15] MEDS ORDERED: LORazepam 0.5 MG Tab PO PRN ×2 (10:42→10:45)
--- NOTE | 2019-02-15 10:55 | EDM.PDOC ---
ED HPI GENERAL MEDICAL PROBLEM - General Chief Complaint: Respiratory Problem Stated Complaint: UNKNOWN Time Seen by Provider: 02/15/19 10:30 Source of Information: Reports: Patient, EMS, RN History Limitations: Reports: Other (shortness of breath) - History of Present Illness INITIAL COMMENTS - FREE TEXT/NARRATIVE: 63 yr female presents with shortness of breath, shakiness since last night. She hasn't had her medications today, but did take them last night. She did have a nebulizer this am. HR 130, BP 166/77. Pt has COPD and lung CA, she is living at home with some homecare services/assist in the home. She does have a trach and has oxygen on at 3lpm per mouth. EKG, labs, chest x-ray ordered. Ativan 1 mg PO given. Shakiness is improving. Chest x-ray completed. SpO2=95 % with oxygen on. - Related Data Allergies Allergy/AdvReac Type Severity Reaction Status Date / Time Penicillins Allergy Unknown Edema Verified 10/30/18 03:45 shellfish derived Allergy Unknown Anaphylactic Verified 10/30/18 03:45 Shock Sulfa (Sulfonamide Allergy Unknown Edema Verified 10/30/18 03:45 Antibiotics) clonidine AdvReac Intermediate Lethargy Verified 10/30/18 03:45 klonopin AdvReac Lethargy Uncoded 10/30/18 03:45 Home Meds: Home Meds guaiFENesin [Mucinex] 600 mg PO BID 10/02/14 [History] Omeprazole 20 mg PO DAILY 11/04/14 [History] predniSONE 20 mg PO DAILY 11/04/14 [History] Fluticasone Propionate [Flonase] 1 spray NASBOTH DAILY 06/04/15 [History] Desvenlafaxine [Pristiq] 50 mg PO QPM 01/03/16 [History] traMADol [Ultram] 50 mg PO TID 01/03/16 [History] Melatonin 5 mg PO BEDTIME 06/22/16 [History] Multivitamins [Childrens Chewable Vitamin] 1 tab PO DAILY@1200 06/22/16 [History ] Umeclidinium [place] [Incruse Ellipta] 1 puff IH DAILY 09/27/16 [History] Digoxin [Lanoxin] 125 mcg PO DAILY tablet 04/01/17 [Rx] Insulin Aspart [NovoLOG] 0 unit SUBCUT TIDMEALS pen 04/01/17 [Rx] hydrOXYzine HCl [hydrOXYzine] 25 mg PO Q6H PRN #30 tablet 04/01/17 [Rx] Albuterol Sulfate 2.5 mg IH QID 09/27/17 [History] Albuterol Sulfate [Ventolin Hfa] 1 spray PO Q4H PRN 09/27/17 [History] Formoterol Fumarate [Perforomist] 1 vial INH BID 09/27/17 [History] Furosemide 40 mg PO DAILY 09/27/17 [History] Gabapentin [Neurontin] 300 mg PO TID 09/27/17 [History] Ipratropium [place] 1 unit INH QID 09/27/17 [History] Montelukast Sodium 10 mg PO DAILY 09/27/17 [History] Roflumilast [Daliresp] 500 mcg PO DAILY 09/27/17 [History] Insulin Detemir [Levemir] 10 unit SQ BID #7 pen 09/29/17 [Rx] Metoprolol Tartrate [Lopressor] 25 mg PO Q12HR 30 Days #60 tab 09/29/17 [Rx] Arformoterol [Brovana] 15 mcg INH BID neb 01/20/18 [Rx] QUEtiapine [SEROquel] 25 mg PO DAILY 06/05/18 [History] Warfarin Sodium [Coumadin] 4 mg PO DAILY 06/05/18 [History] Past Medical History HEENT History: Reports: Allergic Rhinitis, Hard of Hearing, Impaired Vision, Other (See Below) Other HEENT History: trach placed x 2 years ago Cardiovascular History: Reports: Heart Failure, Hypertension, Other (See Below) Other Cardiovascular History: a flutter Respiratory History: Reports: SOB Other Respiratory History: SOB excessive plegm Gastrointestinal History: Reports: Chronic Constipation, GERD Genitourinary History: Reports: Chronic Renal Insuffiency, UTI, Recurrent Other Genitourinary History: no uti recently COUNTER STACKER History: Reports: Other COUNTER STACKER History: hysterectomy Musculoskeletal History: Reports: Arthritis, Back Pain, Chronic, Neck Pain, Chronic Neurological History: Reports: Migraines Psychiatric History: Reports: Anxiety, Depression Endocrine/Metabolic History: Reports: Diabetes, Type II Hematologic History: Reports: Anemia Oncologic (Cancer) History: Reports: Lung Dermatologic History: Reports: Other (See Below) Other Dermatologic History: bruises easily - Infectious Disease History Infectious Disease History: Reports: Chicken Pox, 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, Other - Past Surgical History HEENT Surgical History: Reports: Other (See Below) GI Surgical History: Reports: Hernia, Abdominal Oncologic Surgical History: Reports: Other (See Below) Other Oncologic Surgeries/Procedures: hx biopsy of lung for cancer diagnosis Social & Family History - Family History Family Medical History: Noncontributory Cardiac: Reports: Hypertension Respiratory: Reports: Asthma, COPD Psychiatric: Reports: Anxiety - Caffeine Use Caffeine Use: Reports: Coffee - Living Situation & Occupation Living situation: Reports: Single, with Significant Other Occupation: Disabled ED ROS GENERAL - Review of Systems Review Of Systems: See Below Constitutional: Reports: Weakness, Other (shakiness) HEENT: Reports: No Symptoms Respiratory: Reports: Shortness of Breath, Cough, Other (chronic COPD, Lung CA) Cardiovascular: Reports: Dyspnea on Exertion. Denies: Chest Pain GI/Abdominal: Reports: No Symptoms : Reports: No Symptoms Musculoskeletal: Reports: No Symptoms Skin: Reports: No Symptoms Neurological: Reports: Difficulty Walking, Weakness Psychiatric: Reports: Anxiety ED EXAM, GENERAL - Physical Exam Exam: See Below Exam Limited By: Other (shortness of breath) General Appearance: Alert, No Apparent Distress Ears: Hearing Grossly Normal Nose: Normal Inspection. No: Nasal Swelling, Nasal Drainage Throat/Mouth: Normal Voice, No Airway Compromise, Other (chronic trach) Head: Atraumatic, Normocephalic Neck: Supple, Non-Tender, Full Range of Motion Respiratory/Chest: Decreased Breath Sounds Cardiovascular: Normal Peripheral Pulses, No Edema, Other (slight irregular rhythm noted) Peripheral Pulses: 2+: Radial (L), Radial (R) GI/Abdominal: Normal Bowel Sounds, Soft, Non-Tender, Other (rounded) (Female) Exam: Deferred Rectal (Female) Exam: Deferred Back Exam: Other (chronic back pain) Extremities: Limited Range of Motion (to upper extremities) Neurological: Alert, Oriented, Normal Cognition Psychiatric: Normal Affect, Normal Mood Skin Exam: Warm, Dry, Normal Color Lymphatic: No Adenopathy Course - Vital Signs Last Recorded V/S: Last Vital Signs Temp 97.8 F 02/15/19 11:21 Pulse 121 H 02/15/19 12:17 Resp 20 02/15/19 12:17 BP 133/72 07/25/19 12:17 Pulse Ox 98 02/15/19 12:17 - Orders/Labs/Meds Orders: Active Orders 24 hr Category Date Time Status EKG Documentation Completion [RC] ASDIRECTED Care 02/15/19 10:30 Active RT Aerosol Therapy [RC] ASDIRECTED Care 02/15/19 11:05 Active Albuterol/Ipratropium [DuoNeb 3.0-0.5 MG/3 ML] Med 02/15/19 11:15 Active 3 ml NEB Q6H LORazepam [Ativan] Med 02/15/19 10:45 Active 1 mg PO Q8H PRN Sodium Chloride 0.9% [Saline Flush] Med 02/15/19 10:31 Active 10 ml FLUSH ASDIRECTED PRN Saline Lock Insert [OM.PC] Routine Oth 02/15/19 10:31 Ordered Medication Orders Albuterol/Ipratropium (Duoneb 3.0-0.5 Mg/3 Ml) 3 ml NEB Q6H MATTHEW Last Admin: 02/15/19 11:06 Dose: 3 ml Azithromycin (Zithromax) 500 mg PO DAILY MATTHEW Last Admin: 02/15/19 13:44 Dose: 500 mg Insulin Detemir (Levemir) 20 unit SUBCUT DAILY MATTHEW Lorazepam (Ativan) 1 mg PO Q8H PRN PRN Reason: Shortness of Breath Last Admin: 02/15/19 10:45 Dose: 1 mg Non-Formulary Medication (Albuterol Sulfate [Albuterol Sulfate]) 2.5 mg IH QID MATTHEW Non-Formulary Medication (Desvenlafaxine [Pristiq]) 50 mg PO QPM MATTHEW Non-Formulary Medication (Digoxin [Lanoxin]) 125 mcg PO DAILY MATTHEW Non-Formulary Medication (Formoterol Fumarate [Perforomist]) 1 vial INH BID MATTHEW Non-Formulary Medication 1 Each ( Furosemide [ Furosemide] 20 Mg) 20 mg PO DAILY MATTHEW Non-Formulary Medication (Gabapentin [Neurontin]) 300 mg PO TID MATTHEW Non-Formulary Medication (Guaifenesin [Mucinex]) 600 mg PO BID PRN PRN Reason: CONGESTION Non-Formulary Medication (Hydroxyzine Hcl [Hydroxyzine]) 25 mg PO Q6H PRN PRN Reason: Anxiety Non-Formulary Medication (Ipratropium [place] [Ipratropium [place]]) 1 unit INH QID MATTHEW Non-Formulary Medication (Melatonin [Melatonin]) 5 mg PO BEDTIME MATTHEW Non-Formulary Medication (Metoprolol Tartrate [Lopressor]) 25 mg PO Q12HR MATTHEW Non-Formulary Medication (Montelukast Sodium [Montelukast Sodium]) 10 mg PO DAILY MATTHEW Non-Formulary Medication (Omeprazole [Omeprazole]) 20 mg PO DAILY MATTHEW Non-Formulary Medication (Quetiapine [Seroquel]) 25 mg PO BEDTIME MATTHEW Non-Formulary Medication (Roflumilast [Daliresp]) 500 mcg PO DAILY MATTHEW Non-Formulary Medication (Tramadol [Ultram]) 50 mg PO TID MATTHEW Non-Formulary Medication (Umeclidinium [place] [Incruse Ellipta]) 1 puff IH DAILY MATTHEW Non-Formulary Medication (Warfarin Sodium [Coumadin]) 8 mg PO DAILY MATTHEW Non-Formulary Medication (Nf Drug) 23 each SQ ACBREAKFAST MATTHEW Sodium Chloride (Saline Flush) 10 ml FLUSH ASDIRECTED PRN PRN Reason: Keep Vein Open Last Admin: 02/15/19 11:07 Dose: 10 ml Labs: Laboratory Tests 02/15/19 02/15/19 02/15/19 Range/Units 10:50 10:50 10:50 WBC 16.3 H D (4.0-11.0) K/uL RBC 4.79 (3.80-5.80) M/uL Hgb 13.3 (11.5-16.5) g/dL Hct 43.1 (37.0-47.0) % MCV 90 (76-96) fL MCH 27.8 (27.0-32.0) pg MCHC 30.9 L (31.0-35.0) g/dL RDW 14.2 (11.0-16.0) % Plt Count 280 (150-500) K/uL MPV 9.4 (6.0-10.0) fL Neut % (Auto) 78.9 H (45.0-70.0) % Lymph % (Auto) 9.8 L (20.0-40.0) % Iron % (Auto) 9.8 (3.0-10.0) % Eos % (Auto) 1.2 (1.0-5.0) % Baso % (Auto) 0.3 (0.0-0.5) % Neut # (Auto) 12.87 H (2.00-7.50) K/uL Lymph # (Auto) 1.60 (1.50-4.00) K/uL Iron # (Auto) 1.60 H (0.20-0.80) K/uL Eos # (Auto) 0.20 (0.04-0.40) K/uL Baso # (Auto) 0.05 (0.02-0.10) K/uL Sodium 143 (136-145) mmol/L Potassium 4.1 (3.5-5.1) mmol/L Chloride 96 L (98-107) mmol/L Carbon Dioxide 42.8 H (21.0-32.0) mmol/L Anion Gap 8.3 (5.0-15.0) mmol/L BUN 20 D (8-26) mg/dL Creatinine 0.93 (0.55-1.02) mg/dL Est Cr Clr Drug Dosing TNP Estimated GFR (MDRD) > 60 (>60) MLS/MIN BUN/Creatinine Ratio 21.5 (6-25) Glucose 198 H (74-100) mg/dL Lactic Acid 1.38 (0.90-1.70) mmol/L Calcium 9.2 (8.5-10.1) mg/dL Total Bilirubin 0.5 D (0.0-1.0) mg/dL AST 16 (15-37) U/L ALT 21 (12-78) U/L Alkaline Phosphatase 127 H (46-116) U/L Troponin I (0.000-0.060) ng/mL Total Protein 6.8 (6.4-8.2) g/dL Albumin 3.3 L (3.4-5.0) g/dL Globulin 3.5 (2.2-4.2) g/dL Albumin/Globulin Ratio 0.9 (0.8-2.0) TSH, Ultra Sensitive (0.358-3.740) uIU/mL 02/15/19 Range/Units 10:50 WBC (4.0-11.0) K/uL RBC (3.80-5.80) M/uL Hgb (11.5-16.5) g/dL Hct (37.0-47.0) % MCV (76-96) fL MCH (27.0-32.0) pg MCHC (31.0-35.0) g/dL RDW (11.0-16.0) % Plt Count (150-500) K/uL MPV (6.0-10.0) fL Neut % (Auto) (45.0-70.0) % Lymph % (Auto) (20.0-40.0) % Iron % (Auto) (3.0-10.0) % Eos % (Auto) (1.0-5.0) % Baso % (Auto) (0.0-0.5) % Neut # (Auto) (2.00-7.50) K/uL Lymph # (Auto) (1.50-4.00) K/uL Iron # (Auto) (0.20-0.80) K/uL Eos # (Auto) (0.04-0.40) K/uL Baso # (Auto) (0.02-0.10) K/uL Sodium (136-145) mmol/L Potassium (3.5-5.1) mmol/L Chloride (98-107) mmol/L Carbon Dioxide (21.0-32.0) mmol/L Anion Gap (5.0-15.0) mmol/L BUN (8-26) mg/dL Creatinine (0.55-1.02) mg/dL Est Cr Clr Drug Dosing Estimated GFR (MDRD) (>60) MLS/MIN BUN/Creatinine Ratio (6-25) Glucose (74-100) mg/dL Lactic Acid (0.90-1.70) mmol/L Calcium (8.5-10.1) mg/dL Total Bilirubin (0.0-1.0) mg/dL AST (15-37) U/L ALT (12-78) U/L Alkaline Phosphatase (46-116) U/L Troponin I < 0.017 (0.000-0.060) ng/mL Total Protein (6.4-8.2) g/dL Albumin (3.4-5.0) g/dL Globulin (2.2-4.2) g/dL Albumin/Globulin Ratio (0.8-2.0) TSH, Ultra Sensitive 0.564 D (0.358-3.740) uIU/mL Meds: Medications Generic Name Dose Route Start Last Admin Trade Name Freq PRN Reason Stop Dose Admin Albuterol/Ipratropium 3 ml 02/15/19 11:15 02/15/19 11:06 Duoneb 3.0-0.5 Mg/3 Ml NEB 3 ml Q6H MATTHEW Administration Azithromycin 500 mg 02/15/19 12:30 02/15/19 13:44 Zithromax PO 500 mg DAILY MATTHEW Administration Insulin Detemir 20 unit 02/15/19 20:00 Levemir SUBCUT DAILY MATTHEW Lorazepam 1 mg 02/15/19 10:45 02/15/19 10:45 Ativan PO 1 mg Q8H PRN Administration Shortness of Breath Non-Formulary Medication 2.5 mg 02/15/19 16:00 Albuterol Sulfate [Albuterol Sulfate] IH QID [facility] Non-Formulary Medication 50 mg 02/15/19 20:00 Desvenlafaxine [Pristiq] PO QPM MATTHEW Non-Formulary Medication 125 mcg 02/16/19 08:00 Digoxin [Lanoxin] PO DAILY [facility] Non-Formulary Medication 1 vial 02/15/19 20:00 Formoterol Fumarate [Perforomist] INH BID MATTHEW Non-Formulary 20 mg 02/15/19 14:00 Medication 1 Each ( PO Furosemide [ DAILY MATTHEW Furosemide] 20 Mg) Non-Formulary Medication 300 mg 02/15/19 14:00 Gabapentin [Neurontin] PO TID MATTHEW Non-Formulary Medication 600 mg 02/15/19 20:00 Guaifenesin [Mucinex] PO BID PRN CONGESTION Non-Formulary Medication 25 mg 02/15/19 12:31 Hydroxyzine Hcl [Hydroxyzine] PO Q6H PRN Anxiety Non-Formulary Medication 1 unit 02/15/19 16:00 Ipratropium [place] [Ipratropium [place]] INH QID MATTHEW Non-Formulary Medication 5 mg 02/15/19 20:00 Melatonin [Melatonin] PO BEDTIME MATTHEW Non-Formulary Medication 25 mg 02/15/19 20:00 Metoprolol Tartrate [Lopressor] PO Q12HR MATTHEW Non-Formulary Medication 10 mg 02/16/19 08:00 Montelukast Sodium [Montelukast Sodium] PO DAILY MATTHEW Non-Formulary Medication 20 mg 02/16/19 08:00 Omeprazole [Omeprazole] PO DAILY MATTHEW Non-Formulary Medication 25 mg 02/16/19 20:00 Quetiapine [Seroquel] PO BEDTIME MATTHEW Non-Formulary Medication 500 mcg 02/16/19 08:00 Roflumilast [Daliresp] PO DAILY MATTHEW Non-Formulary Medication 50 mg 02/15/19 14:00 Tramadol [Ultram] PO TID MATTHEW Non-Formulary Medication 1 puff 02/16/19 08:00 Umeclidinium [place] [Incruse Ellipta] IH DAILY [facility] Non-Formulary Medication 8 mg 02/15/19 18:00 Warfarin Sodium [Coumadin] PO DAILY [facility] Non-Formulary Medication 23 each 02/16/19 08:00 Nf Drug SQ ACBREAKFAST MATTHEW Sodium Chloride 10 ml 02/15/19 10:31 02/15/19 11:07 Saline Flush FLUSH 10 ml ASDIRECTED PRN Administration Keep Vein Open Discontinued Medications Generic Name Dose Route Start Last Admin Trade Name Freq PRN Reason Stop Dose Admin Lorazepam 0.5 mg 02/15/19 10:42 Ativan PO Q8H PRN Shortness of Breath Methylprednisolone Sodium Succinate 125 mg 02/15/19 11:15 02/15/19 11:19 Solu-Medrol IVPUSH 02/15/19 11:16 125 mg ONETIME ONE Administration Methylprednisolone Sodium Succinate Confirm 02/15/19 11:24 02/15/19 13:42 Solu-Medrol Administered 02/15/19 11:25 Not Given Dose 125 mg .ROUTE .STK-MED ONE Non-Formulary Medication 10 unit 02/15/19 20:00 Insulin Detemir [Levemir] SQ BID [facility] Non-Formulary Medication 4 mg 02/15/19 18:00 Warfarin Sodium [Coumadin] PO DAILY [facility] - Re-Assessments/Exams Free Text/Narrative Re-Assessment/Exam: 02/15/19 16:13 LE Shortness of breath and increase in shakiness at home. EKG, chest x-ray, Labs completed with slight increase WBC/leukocytosis noted. EKG with arrhythmia and rate of 120-130. She is taking Coumadin and Digoxin. Will place on observation and start Azithromycin PO if able to take food and fluids well, will discharge in am. Departure - Departure Time of Disposition: 11:35 Disposition: Refer to Observation Condition: Poor Clinical Impression: Shortness of breath, Leukocytosis, Anticoagulant long-term use, Atrial fibrillation by electrocardiogram, Diabetes type 2, controlled, Tracheostomy in place - Discharge Information *PRESCRIPTION DRUG MONITORING PROGRAM REVIEWED*: Not Applicable *COPY OF PRESCRIPTION DRUG MONITORING REPORT IN PATIENT ANSHU: Not Applicable - Problem List & Annotations (1) Shortness of breath SNOMED Code(s): 632891071 Code(s): R06.02 - SHORTNESS OF BREATH Status: Acute Current Visit: Yes (2) Leukocytosis SNOMED Code(s): 784458053, 621580432 Code(s): D72.829 - ELEVATED WHITE BLOOD CELL COUNT, UNSPECIFIED Status: Acute Current Visit: Yes (3) Anticoagulant long-term use SNOMED Code(s): 621109254 Code(s): Z79.01 - [employer] (CURRENT) USE OF ANTICOAGULANTS Status: Acute Current Visit: Yes (4) Atrial fibrillation by electrocardiogram SNOMED Code(s): 424365427 Code(s): I48.91 - UNSPECIFIED ATRIAL FIBRILLATION Status: Acute Current Visit: Yes (5) Diabetes type 2, controlled SNOMED Code(s): 42372972, 557364294 Code(s): E11.9 - TYPE 2 DIABETES MELLITUS WITHOUT COMPLICATIONS Status: Acute Current Visit: Yes - Problem List Review Problem List Initiated/Reviewed/Updated: Yes - My Orders Last 24 Hours: My Active Orders 02/15/19 10:30 EKG Documentation Completion [RC] ASDIRECTED 02/15/19 10:31 Sodium Chloride 0.9% [Saline Flush] 10 ml FLUSH ASDIRECTED PRN Saline Lock Insert [OM.PC] Routine 02/15/19 10:45 LORazepam [Ativan] 1 mg PO Q8H PRN 02/15/19 11:05 RT Aerosol Therapy [RC] ASDIRECTED 02/15/19 11:15 Albuterol/Ipratropium [DuoNeb 3.0-0.5 MG/3 ML] 3 ml NEB Q6H - Assessment/Plan Last 24 Hours: My Active Orders 02/15/19 10:30 EKG Documentation Completion [RC] ASDIRECTED 02/15/19 10:31 Sodium Chloride 0.9% [Saline Flush] 10 ml FLUSH ASDIRECTED PRN Saline Lock Insert [OM.PC] Routine 02/15/19 10:45 LORazepam [Ativan] 1 mg PO Q8H PRN 02/15/19 11:05 RT Aerosol Therapy [RC] ASDIRECTED 02/15/19 11:15 Albuterol/Ipratropium [DuoNeb 3.0-0.5 MG/3 ML] 3 ml NEB Q6H Plan: Shortness of breath and leukocytosis: Oxygen 3lpm per trach continuous to keep Spo2.92% Assist with trach cares as needed. Nebulizers and PO medications as ordered per home medications. Solu-medrol IV X 1. Azithromycin 500 mg PO daily x 5 days. CBC in am Diabetes Type 2 Insulin as ordered pt home medications: Basaglar 23 units in am and 20 units in Pm Sq. Novolog pen ac tid: 150-199 3unit 200-249 6 unit 250-299 9 unit 300-349 12 unit 350-399 15 unit >400 noticy provider Atrial fib: PT/INR in am Home medications as ordered. Digoxin level in am
[2019-02-15] MEDS: Albuterol/Ipratropium 3.0-0.5 MG/3 ML Neb Soln NEB SCH ×3 (11:06→22:16)
[2019-02-15] MEDS: Sodium Chloride 0.9% 10 ML Syringe FLUSH PRN (11:07)
[2019-02-15] MEDS ORDERED: methylPREDNISolone Sodium Succinate 125 MG/2 ML SDV IVPUSH ONE (11:15)
[2019-02-15] MEDS ORDERED: methylPREDNISolone Sodium Succinate 125 MG/2 ML SDV ONE (11:24)
--- NOTE | 2019-02-15 11:54 | CR ---
DATE OF SERVICE: 02/15/19 CLINICAL DATA: shortness of breath AP PORTABLE CHEST: Comparison is made to a prior exam dated 11/22/18. The patient is rotated to the right. The tracheostomy tube remains unchanged in position. Heart size stable. The patient has taken a poor inspiration. The pulmonary vasculature does appear mildly prominent. It is probably accentuated by the poor inspiration. Mild pulmonary venous congestion should be considered. The lungs are clear. No pneumothorax. No pleural effusion. [id number] [facility]
[2019-02-15] MEDS ORDERED: HYDROXYZINE HCL 25 MG PO PRN (12:31)
[2019-02-15] MEDS: Azithromycin 250 MG Tab PO SCH (13:44)
[2019-02-15] MEDS ORDERED: IPRATROPIUM BROMIDE INH SCH (16:00)
[2019-02-15] MEDS: Non-Formulary Medication 1 Each (Tramadol [Ultram] 50 MG) PO SCH ×2 (16:37→21:17)
[2019-02-15] MEDS: Non-Formulary Medication 1 Each (Gabapentin [Neurontin] 300 MG) PO SCH ×2 (16:37→21:15)
[2019-02-15] MEDS: Non-Formulary Medication 1 Each (Furosemide [Furosemide] 20 MG) PO SCH (16:37)
[2019-02-15] MEDS: ALBUTEROL SULFATE 2.5 MG IH SCH ×2 (16:38→21:20)
[2019-02-15] MEDS ORDERED: WARFARIN SODIUM 4 MG PO SCH (18:00)
[2019-02-15] MEDS ORDERED: WARFARIN SODIUM 8 MG PO SCH (18:00)
[2019-02-15] MEDS ORDERED: Non-Formulary Medication 1 Each (Arformoterol [Brovana] 15 MCG) INH SCH (20:00)
[2019-02-15] MEDS ORDERED: Non-Formulary Medication 1 Each (Melatonin [Melatonin] 5 MG) PO SCH (20:00)
[2019-02-15] MEDS ORDERED: DESVENLAFAXINE 50 MG PO SCH (20:00)
[2019-02-15] MEDS ORDERED: Insulin Detemir 100 Units/ML 3 ML Pen SUBCUT SCH (20:00)
[2019-02-15] MEDS ORDERED: INSULIN DETEMIR 10 UNIT SQ SCH (20:00)
[2019-02-15] MEDS ORDERED: Ipratropium 0.02% 0.5 MG/2.5 ML Neb Soln ONE (21:14)
[2019-02-15] MEDS: FORMOTEROL FUMARATE INH SCH (21:15)
[2019-02-15] MEDS: Non-Formulary Medication 1 Each (Metoprolol Tartrate [Lopressor] 25 MG) PO SCH (21:16)
[2019-02-15] MEDS: Non-Formulary Medication 1 Each (Guaifenesin [Mucinex] 600 MG) PO PRN (21:50)
[2019-02-16] MEDS: Albuterol/Ipratropium 3.0-0.5 MG/3 ML Neb Soln NEB SCH ×2 (05:28→12:08)
[2019-02-16] MEDS: Non-Formulary Medication 1 Each (Tramadol [Ultram] 50 MG) PO SCH (07:51)
[2019-02-16] MEDS: Non-Formulary Medication 1 Each (Gabapentin [Neurontin] 300 MG) PO SCH (07:52)
[2019-02-16] MEDS: Non-Formulary Medication 1 Each (Metoprolol Tartrate [Lopressor] 25 MG) PO SCH (07:52)
[2019-02-16] MEDS: Non-Formulary Medication 1 Each (Furosemide [Furosemide] 20 MG) PO SCH (07:53)
[2019-02-16] MEDS ORDERED: INSULIN GLARGINE 100 UNIT/ML SQ SCH ×2 (08:00→20:00)
[2019-02-16] MEDS ORDERED: Non-Formulary Medication 1 Each (Omeprazole [Omeprazole] 20 MG) PO SCH (08:00)
[2019-02-16] MEDS ORDERED: MONTELUKAST SODIUM 10 MG PO SCH (08:00)
[2019-02-16] MEDS ORDERED: DIGOXIN 125 MCG PO SCH (08:00)
[2019-02-16] MEDS: Azithromycin 250 MG Tab PO SCH (08:00)
[2019-02-16] MEDS ORDERED: Non-Formulary Medication 1 Each (Roflumilast [Daliresp] 500 MCG) PO SCH (08:00)
[2019-02-16] MEDS ORDERED: Non-Formulary Medication 1 Each (Umeclidinium Bromide [Incruse Ellipta] 1 PUFF) IH SCH (08:00)
[2019-02-16] MEDS: Sodium Chloride 0.9% 10 ML Syringe FLUSH PRN (08:27)
[2019-02-16] MEDS: FORMOTEROL FUMARATE INH SCH (08:28)
[2019-02-16] MEDS: Non-Formulary Medication 1 Each (Guaifenesin [Mucinex] 600 MG) PO PRN (08:30)
[2019-02-16] MEDS ORDERED: predniSONE 10 MG Tab PO SCH (09:25)
[2019-02-16] MEDS ORDERED: Insulin Aspart 100 Units/ML 3 ML Pen SUBCUT SCH (11:00)
[2019-02-16] MEDS ORDERED: MULTIVITAMINS PO SCH (12:00)
[2019-02-16 13:42] VITALS: BP 128/76; PULSE 102
[2019-02-16] MEDS ORDERED: QUETIAPINE 25 MG PO SCH (20:00)
--- NOTE | 2019-02-21 08:39 | PCM.DCSUM1 ---
Discharge Summary - Hospital Course HPI Initial Comments: Pt presented to ER with shortness of breath, COPD and tired with little sleep at home with extreme heat. Ativan, Solu-medrol IV given and shortness of breath improved and pt was able to rest, place on observation overnight. Pt taking PO medications and eating meals with some improvement in appetite. Will continue PO Azithromycin and taper dose of Prednisone. F/U in clinic next week. Symptoms should improve daily. Monitor for any increase in shortness of breath unrelieved with nebulizers and any increase in temperature. 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 Status: Acute (4) Atrial fibrillation by electrocardiogram SNOMED Code(s): 819678050 ICD Code: I48.91 - UNSPECIFIED ATRIAL FIBRILLATION Status: Acute (5) Diabetes type 2, controlled SNOMED Code(s): 24544354, 677333959 ICD Code: E11.9 - TYPE 2 DIABETES MELLITUS WITHOUT COMPLICATIONS Status: Acute - Patient Instructions Diet: Diabetic Diet Activity: As Tolerated, Rest and Relax Today Driving: Do Not Drive Showering/Bathing: May Shower Notify Provider of: Fever, Increased Pain - Discharge Plan *PRESCRIPTION DRUG MONITORING PROGRAM REVIEWED*: Not Applicable *COPY OF PRESCRIPTION DRUG MONITORING REPORT IN PATIENT ANSHU: Not Applicable Prescriptions/Med Rec: predniSONE [Prednisone] 10 mg PO DAILY #28 tablet Home Medications: Home Meds guaiFENesin [Mucinex] 600 mg PO BID 10/02/14 [History] Omeprazole 20 mg PO DAILY 11/04/14 [History] Fluticasone Propionate [Flonase] 1 spray NASBOTH DAILY 06/04/15 [History] Desvenlafaxine [Pristiq] 50 mg PO QPM 01/03/16 [History] traMADol [Ultram] 50 mg PO TID 01/03/16 [History] Melatonin 5 mg PO BEDTIME 06/22/16 [History] Multivitamins [Childrens Chewable Vitamin] 1 tab PO DAILY@1200 06/22/16 [History ] Umeclidinium [place] [Incruse Ellipta] 1 puff IH DAILY 09/27/16 [History] Digoxin [Lanoxin] 125 mcg PO DAILY tablet 04/01/17 [Rx] Insulin Aspart [NovoLOG] 0 unit SUBCUT TIDMEALS pen 04/01/17 [Rx] hydrOXYzine HCl [hydrOXYzine] 25 mg PO Q6H PRN #30 tablet 04/01/17 [Rx] Albuterol Sulfate 2.5 mg IH QID 09/27/17 [History] Albuterol Sulfate [Ventolin Hfa] 1 inh PO Q4H PRN 09/27/17 [History] Formoterol Fumarate [Perforomist] 1 vial INH BID 09/27/17 [History] Furosemide 40 mg PO DAILY 09/27/17 [History] Gabapentin [Neurontin] 300 mg PO TID 09/27/17 [History] Montelukast Sodium 10 mg PO DAILY 09/27/17 [History] Roflumilast [Daliresp] 500 mcg PO DAILY 09/27/17 [History] Metoprolol Tartrate [Lopressor] 25 mg PO Q12HR 30 Days #60 tab 09/29/17 [Rx] QUEtiapine [SEROquel] 25 mg PO DAILY 06/05/18 [History] Azithromycin [Zithromax] 500 mg PO DAILY tablet 02/16/19 [Rx] Budesonide [Pulmicort] 0.5 mg IH BID 02/16/19 [History] Cholecalciferol (Vitamin D3) [Vitamin D3] 1,000 unit PO DAILY 02/16/19 [History] Diltiazem HCl [Cardizem Cd] 240 mg PO DAILY 02/16/19 [History] Insulin Glargine,Hum.Rec.Anlog [Basaglar Kwikpen U-100] 20 units SQ BEDTIME [History] Insulin Glargine,Hum.Rec.Anlog [Basaglar Kwikpen U-100] 23 units SQ ACBREAKFAST 02/16/19 [History] Ipratropium [place] [Ipratropium [place]] 1 unit INH QID 02/16/19 [Rx] Ketoconazole [Nizoral 2% Crm] 1 applic TOP BID 02/16/19 [History] LORazepam [Ativan] 0.5 mg PO BID PRN 02/16/19 [History] Nystatin 500,000 unit PO TID 02/16/19 [History] Triamcinolone Acetonide [Triamcinolone Acetonide 0.025%] 1 applic TOP BID [History] Warfarin Sodium [Coumadin] 8 mg PO DAILY@1800 02/16/19 [Rx] diphenhydrAMINE HCl [Banophen] 25 mg PO BID 02/16/19 [History] oxyCODONE HCl/Acetaminophen [Oxycodone-Acetaminophen 5-325] 1 tab PO Q6H PRN [History] predniSONE [Prednisone] 10 mg PO DAILY #28 tablet 02/16/19 [Rx] Oxygen Therapy Mode: Trans-tracheal Oxygen Oxygen Flow Rate (L/min): 3 Patient Handouts: Acute Respiratory Distress Syndrome, Adult, Azithromycin tablets, Prednisone tablets Forms: ED Department Discharge Referrals: PCP,None [Primary Care Provider] - - Discharge Summary/Plan Comment DC Time >30 min.: No Discharge Summary/Plan Comment: Discharge to home with home care services, already in progress. Continue with Azithromycin and prednisone taper. Medications as at home. Continue to use Air conditioning with this extreme heat. Follow-up with PCP as needed. - General Info Date of Service: 02/16/19 Admission Dx/Problem (Free Text: shortness of breath Functional Status: Reports: Pain Controlled, Tolerating Diet - Review of Systems General: Reports: Weakness HEENT: Denies: Headaches, Sinus Congestion, Sore Throat Pulmonary: Reports: Shortness of Breath, Cough, Sputum Cardiovascular: Reports: No Symptoms Gastrointestinal: Reports: No Symptoms Genitourinary: Reports: No Symptoms Musculoskeletal: Reports: Other (chronic back pain) Skin: Reports: No Symptoms Neurological: Reports: No Symptoms Psychiatric: Reports: No Symptoms - Patient Data Vitals - Most Recent: Last Vital Signs Temp 98.2 F 02/16/19 12:00 Pulse 102 H 02/16/19 12:00 Resp 20 02/16/19 12:00 BP 128/76 02/16/19 12:00 Pulse Ox 93 L 02/16/19 12:00 Med Orders - Current: Current Medications Discontinued Medications Albuterol/Ipratropium (Duoneb 3.0-0.5 Mg/3 Ml) 3 ml NEB Q6H [facility] Last Admin: 02/16/19 12:08 Dose: 3 ml Azithromycin (Zithromax) 500 mg PO DAILY [facility] Last Admin: 02/16/19 08:00 Dose: 500 mg Insulin Aspart (Novolog) 0 unit SUBCUT TIDAC [facility]; Protocol Last Admin: 02/16/19 12:24 Dose: Not Given Insulin Detemir (Levemir) 20 unit SUBCUT DAILY [facility] Ipratropium [place] (Atrovent) Confirm Administered Dose 0.5 mg .ROUTE .STK-MED ONE Stop: 02/15/19 21:15 Last Admin: 02/15/19 22:08 Dose: Not Given Lorazepam (Ativan) 0.5 mg PO Q8H PRN PRN Reason: Shortness of Breath Lorazepam (Ativan) 1 mg PO Q8H PRN PRN Reason: Shortness of Breath Last Admin: 02/15/19 10:45 Dose: 1 mg Methylprednisolone Sodium Succinate (Solu-Medrol) 125 mg IVPUSH ONETIME ONE Stop: 02/15/19 11:16 Last Admin: 02/15/19 11:19 Dose: 125 mg Methylprednisolone Sodium Succinate (Solu-Medrol) Confirm Administered Dose 125 mg .ROUTE .STK-MED ONE Stop: 02/15/19 11:25 Last Admin: 02/15/19 13:42 Dose: Not Given Non-Formulary Medication (Albuterol Sulfate [Albuterol Sulfate]) 2.5 mg IH QID [facility] Last Admin: 02/15/19 21:20 Dose: 2.5 mg Non-Formulary Medication (Desvenlafaxine [Pristiq]) 50 mg PO QPM [facility] Last Admin: 02/15/19 21:20 Dose: 50 mg Non-Formulary Medication (Digoxin [Lanoxin]) 125 mcg PO DAILY [facility] Last Admin: 02/16/19 07:52 Dose: 125 mcg Non-Formulary Medication (Formoterol Fumarate [Perforomist]) 1 vial INH BID [facility] Last Admin: 02/16/19 08:28 Dose: 1 vial Non-Formulary Medication 1 Each ( Furosemide [ Furosemide] 20 Mg) 20 mg PO DAILY [facility] Last Admin: 02/16/19 07:53 Dose: 20 mg Non-Formulary Medication (Gabapentin [Neurontin]) 300 mg PO TID [facility] Last Admin: 02/16/19 07:52 Dose: 300 mg Non-Formulary Medication (Guaifenesin [Mucinex]) 600 mg PO BID PRN PRN Reason: CONGESTION Last Admin: 02/16/19 08:30 Dose: 600 mg Non-Formulary Medication (Hydroxyzine Hcl [Hydroxyzine]) 25 mg PO Q6H PRN PRN Reason: Anxiety Last Admin: 02/16/19 08:30 Dose: 25 mg Non-Formulary Medication (Insulin Detemir [Levemir]) 10 unit SQ BID [facility] Non-Formulary Medication (Ipratropium [place] [Ipratropium [place]]) 1 unit INH QID [facility] Non-Formulary Medication (Melatonin [Melatonin]) 5 mg PO BEDTIME [facility] Last Admin: 02/15/19 21:16 Dose: 5 mg Non-Formulary Medication (Metoprolol Tartrate [Lopressor]) 25 mg PO Q12HR [facility] Last Admin: 02/16/19 07:52 Dose: 25 mg Non-Formulary Medication (Montelukast Sodium [Montelukast Sodium]) 10 mg PO DAILY [facility] Last Admin: 02/16/19 07:51 Dose: 10 mg Non-Formulary Medication (Omeprazole [Omeprazole]) 20 mg PO DAILY [facility] Last Admin: 02/16/19 07:52 Dose: 20 mg Non-Formulary Medication (Quetiapine [Seroquel]) 25 mg PO BEDTIME [facility] Last Admin: 02/15/19 21:50 Dose: 25 mg Non-Formulary Medication (Roflumilast [Daliresp]) 500 mcg PO DAILY [facility] Last Admin: 02/16/19 07:53 Dose: 500 mcg Non-Formulary Medication (Tramadol [Ultram]) 50 mg PO TID [facility] Last Admin: 02/16/19 07:51 Dose: 50 mg Non-Formulary Medication (Umeclidinium [place] [Incruse Ellipta]) 1 puff IH DAILY [facility] Last Admin: 02/16/19 06:44 Dose: 1 puff Non-Formulary Medication (Warfarin Sodium [Coumadin]) 4 mg PO DAILY [facility] Non-Formulary Medication (Warfarin Sodium [Coumadin]) 8 mg PO DAILY@1800 [facility] Insulin Glargine ( Basaglar) 100 Units/Ml Own Med 0 each SQ ACBREAKFAST [facility] Last Admin: 02/16/19 07:56 Dose: 23 each Insulin Glargine ( Basaglar) 100 Units/Ml Own Med 0 each SQ BEDTIME [facility] Last Admin: 02/15/19 21:21 Dose: 20 each Prednisone (Prednisone) 50 mg PO WITHBREAKFAST [facility] Last Admin: 02/16/19 09:35 Dose: 50 mg Sodium Chloride (Saline Flush) 10 ml FLUSH ASDIRECTED PRN PRN Reason: Keep Vein Open Last Admin: 02/16/19 08:27 Dose: 10 ml - Exam Quality Assessment: Reports: Supplemental Oxygen (dependent oxygen use, trach, nebulizer/inhaler as ordered) General: Reports: Alert, Oriented, Cooperative, No Acute Distress HEENT: Reports: Mucous Membr. Moist/[place] Neck: Reports: Supple, Trachea Midline Lungs: Reports: Decreased Breath Sounds. Denies: Rhonchi, Wheezing Cardiovascular: Reports: Regular Rate, Regular Rhythm GI/Abdominal Exam: Normal Bowel Sounds, Soft, Non-Tender Skin: Reports: Warm, Dry Neurological: Reports: Normal Speech, Strength Equal Bilateral Psy/Mental Status: Reports: Alert, Normal Affect, Normal Mood
== END 2019-02-16 13:20 | disposition home or self-care (01) ==
LOC: LB.ED 09:28 → LB.MS 12:00 → UNDOADMOB 12:00 → LB.MS 02-16 08:56 → UNDODISOB 02-16 13:20
PROVIDERS: ADMIT Nurse Practitioner Family; ATTEND Nurse Practitioner Family
DX: R06.02 Shortness of breath (principal); D72.829 Elevated white blood cell count, unspecified; J44.9 Chronic obstructive pulmonary disease, unspecified; I11.0 Hypertensive heart disease with heart failure; I50.9 Heart failure, unspecified; I48.91 Unspecified atrial fibrillation; E11.9 Type 2 diabetes mellitus without complications; C34.90 Malignant neoplasm of unspecified part of unspecified bronchus or lung; Z93.0 Tracheostomy status; Z88.0 Allergy status to penicillin; Z88.2 Allergy status to sulfonamides; Z88.8 Allergy status to other drugs, medicaments and biological substances; Z91.013 Allergy to seafood; Z99.81 Dependence on supplemental oxygen; Z79.01 Long term (current) use of anticoagulants; Z79.52 Long term (current) use of systemic steroids; Z79.51 Long term (current) use of inhaled steroids; Z79.4 Long term (current) use of insulin; Z79.899 Other long term (current) drug therapy
CPT/HCPCS: 36415; 71045; 80053; 80162; 82962; 83605; 84443; 84484; 85025; 85610; 93005; 99285; A0425; A0429; A9270; J2930; 96374; 99235; G0378; J7620-GY

== ENCOUNTER 2019-03-05 11:27 | Observation (INO) | payer MEDICARE, MEDICAID ==
[2019-03-05] MEDS ORDERED: Sodium Chloride 0.9% 10 ML Syringe FLUSH PRN (11:42)
[2019-03-05] MEDS ORDERED: Sodium Chloride 0.9% 1,000 ML IV SCH (11:45)
--- NOTE | 2019-03-05 14:06 | EDM.PDOC ---
ED HPI GENERAL MEDICAL PROBLEM - General Chief Complaint: General Stated Complaint: weakness Time Seen by Provider: 03/05/19 13:00 Source of Information: Reports: Patient, Old Records, RN Notes Reviewed History Limitations: Reports: No Limitations - History of Present Illness INITIAL COMMENTS - FREE TEXT/NARRATIVE: This is a 63yo F brought into the ER by EMS from her home for weakness. She has constant shortness of breath and uses oxygen 24/7. She states she has been feeling weaker and weaker the past few days. She denies any other health concerns. She appears to fall asleep during my exam. Onset: Gradual Duration: Day(s): Location: Reports: Generalized Severity: Moderate Improves with: Reports: None Associated Symptoms: Reports: Shortness of Breath, Weakness Generalized Pain Score (Numeric/FACES): 6 - Related Data Allergies Allergy/AdvReac Type Severity Reaction Status Date / Time Penicillins Allergy Unknown Edema Verified 10/30/18 03:45 shellfish derived Allergy Unknown Anaphylactic Verified 10/30/18 03:45 Shock Sulfa (Sulfonamide Allergy Unknown Edema Verified 10/30/18 03:45 Antibiotics) clonidine AdvReac Intermediate Lethargy Verified 10/30/18 03:45 klonopin AdvReac Lethargy Uncoded 10/30/18 03:45 Home Meds: Home Meds guaiFENesin [Mucinex] 600 mg PO BID 10/02/14 [History] Omeprazole 20 mg PO DAILY 11/04/14 [History] Fluticasone Propionate [Flonase] 1 spray NASBOTH DAILY 06/04/15 [History] Desvenlafaxine [Pristiq] 50 mg PO QPM 01/03/16 [History] traMADol [Ultram] 50 mg PO TID 01/03/16 [History] Melatonin 5 mg PO BEDTIME 06/22/16 [History] Multivitamins [Childrens Chewable Vitamin] 1 tab PO DAILY@1200 06/22/16 [History ] Umeclidinium [place] [Incruse Ellipta] 1 puff IH DAILY 09/27/16 [History] Digoxin [Lanoxin] 125 mcg PO DAILY tablet 04/01/17 [Rx] Insulin Aspart [NovoLOG] 0 unit SUBCUT TIDMEALS pen 04/01/17 [Rx] hydrOXYzine HCl [hydrOXYzine] 25 mg PO Q6H PRN #30 tablet 04/01/17 [Rx] Albuterol Sulfate 2.5 mg IH QID 09/27/17 [History] Albuterol Sulfate [Ventolin Hfa] 1 inh PO Q4H PRN 09/27/17 [History] Formoterol Fumarate [Perforomist] 1 vial INH BID 09/27/17 [History] Furosemide 40 mg PO DAILY 09/27/17 [History] Gabapentin [Neurontin] 300 mg PO TID 09/27/17 [History] Montelukast Sodium 10 mg PO DAILY 09/27/17 [History] Roflumilast [Daliresp] 500 mcg PO DAILY 09/27/17 [History] Metoprolol Tartrate [Lopressor] 25 mg PO Q12HR 30 Days #60 tab 09/29/17 [Rx] QUEtiapine [SEROquel] 25 mg PO DAILY 06/05/18 [History] Azithromycin [Zithromax] 500 mg PO DAILY tablet 02/16/19 [Rx] Budesonide [Pulmicort] 0.5 mg IH BID 02/16/19 [History] Cholecalciferol (Vitamin D3) [Vitamin D3] 1,000 unit PO DAILY 02/16/19 [History] Diltiazem HCl [Cardizem Cd] 240 mg PO DAILY 02/16/19 [History] Insulin Glargine,Hum.Rec.Anlog [Basaglar Kwikpen U-100] 20 units SQ BEDTIME [History] Insulin Glargine,Hum.Rec.Anlog [Basaglar Kwikpen U-100] 23 units SQ ACBREAKFAST 02/16/19 [History] Ipratropium [place] [Ipratropium [place]] 1 unit INH QID 02/16/19 [Rx] Ketoconazole [Nizoral 2% Crm] 1 applic TOP BID 02/16/19 [History] LORazepam [Ativan] 0.5 mg PO BID PRN 02/16/19 [History] Nystatin 500,000 unit PO TID 02/16/19 [History] Triamcinolone Acetonide [Triamcinolone Acetonide 0.025%] 1 applic TOP BID [History] Warfarin Sodium [Coumadin] 8 mg PO DAILY@1800 02/16/19 [Rx] diphenhydrAMINE HCl [Banophen] 25 mg PO BID 02/16/19 [History] oxyCODONE HCl/Acetaminophen [Oxycodone-Acetaminophen 5-325] 1 tab PO Q6H PRN [History] predniSONE [Prednisone] 10 mg PO DAILY #28 tablet 02/16/19 [Rx] Past Medical History HEENT History: Reports: Allergic Rhinitis, Hard of Hearing, Impaired Vision, Other (See Below) Other HEENT History: trach placed x 2 years ago Cardiovascular History: Reports: Heart Failure, Hypertension, Other (See Below) Other Cardiovascular History: a flutter Respiratory History: Reports: SOB Other Respiratory History: SOB excessive plegm Gastrointestinal History: Reports: Chronic Constipation, GERD Genitourinary History: Reports: Chronic Renal Insuffiency, UTI, Recurrent Other Genitourinary History: no uti recently PORTER SAMPLE CASE History: Reports: Other PORTER SAMPLE CASE History: hysterectomy Musculoskeletal History: Reports: Arthritis, Back Pain, Chronic, Neck Pain, Chronic Neurological History: Reports: Migraines Psychiatric History: Reports: Anxiety, Depression Endocrine/Metabolic History: Reports: Diabetes, Type II Hematologic History: Reports: Anemia Oncologic (Cancer) History: Reports: Lung Dermatologic History: Reports: Other (See Below) Other Dermatologic History: bruises easily - Infectious Disease History Infectious Disease History: Reports: Chicken Pox, 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, Other - Past Surgical History HEENT Surgical History: Reports: Other (See Below) GI Surgical History: Reports: Hernia, Abdominal Oncologic Surgical History: Reports: Other (See Below) Other Oncologic Surgeries/Procedures: hx biopsy of lung for cancer diagnosis Social & Family History - Family History Family Medical History: Noncontributory Cardiac: Reports: Hypertension Respiratory: Reports: Asthma, COPD Psychiatric: Reports: Anxiety - Tobacco Use Smoking Status *Q: Current Every Day Smoker Years of Tobacco use: 40 Packs/Tins Daily: 0.5 - Caffeine Use Caffeine Use: Reports: Coffee - Recreational Drug Use Recreational Drug Use: No - Living Situation & Occupation Living situation: Reports: Single, with Significant Other Occupation: Disabled ED ROS GENERAL - Review of Systems Review Of Systems: ROS reveals no pertinent complaints other than HPI. ED EXAM, GENERAL - Physical Exam Exam: See Below Exam Limited By: No Limitations General Appearance: Alert, WD/WN, Mild Distress Eye Exam: Bilateral Eye: EOMI, PERRL Ears: Normal External Exam Nose: Normal Inspection Throat/Mouth: Normal Inspection Head: Atraumatic, Normocephalic Neck: Normal Inspection Respiratory/Chest: No Respiratory Distress, Lungs Clear Cardiovascular: Normal Peripheral Pulses, Regular Rate, Rhythm GI/Abdominal: Normal Bowel Sounds Back Exam: Normal Inspection Extremities: Normal Inspection Neurological: Alert, Oriented Psychiatric: Normal Affect, Normal Mood Skin Exam: Warm, Dry, Intact Course - Vital Signs Last Recorded V/S: Last Vital Signs Temp 36.0 C 03/05/19 14:04 Pulse 113 H 03/05/19 14:04 Resp 22 H 03/05/19 14:04 BP 157/71 H 03/05/19 14:04 Pulse Ox 98 03/05/19 14:04 - Orders/Labs/Meds Orders: Active Orders 24 hr Category Date Time Status EKG Documentation Completion [RC] ASDIRECTED Care 03/05/19 11:47 Active THYROXINE (T4) FREE, DIRECT, S Routine Lab 03/05/19 11:55 Received Sodium Chloride 0.9% [Normal Saline] 1,000 ml Med 03/05/19 11:45 Active IV ASDIRECTED Sodium Chloride 0.9% [Saline Flush] Med 03/05/19 11:42 Active 10 ml FLUSH ASDIRECTED PRN Peripheral IV Insertion Adult [OM.PC] Routine Oth 03/05/19 11:42 Ordered Medication Orders Ceftriaxone Sodium (Rocephin) 1 gm IVPUSH Q24H [facility] Last Admin: 03/05/19 15:09 Dose: 1 gm Sodium Chloride (Normal Saline) 1,000 mls @ 999 mls/hr IV ASDIRECTED MATTHEW Last Admin: 03/05/19 12:14 Dose: 999 mls/hr Sodium Chloride (Normal Saline) 1,000 mls @ 100 mls/hr IV ASDIRECTED MATTHEW Last Admin: 03/05/19 14:52 Dose: 100 mls/hr Sodium Chloride (Saline Flush) 10 ml FLUSH ASDIRECTED PRN PRN Reason: Keep Vein Open Last Admin: 03/05/19 12:10 Dose: 10 ml Labs: Laboratory Tests 03/05/19 03/05/19 03/05/19 Range/Units 11:55 11:55 11:55 WBC 17.2 H (4.0-11.0) K/uL RBC 5.13 (3.80-5.80) M/uL Hgb 14.2 (11.5-16.5) g/dL Hct 46.3 (37.0-47.0) % MCV 90 (76-96) fL MCH 27.7 (27.0-32.0) pg MCHC 30.7 L (31.0-35.0) g/dL RDW 14.0 (11.0-16.0) % Plt Count 262 (150-500) K/uL MPV 9.5 (6.0-10.0) fL Neut % (Auto) 80.3 H (45.0-70.0) % Lymph % (Auto) 8.0 L (20.0-40.0) % [place] % (Auto) 10.7 H (3.0-10.0) % Eos % (Auto) 0.6 L (1.0-5.0) % Baso % (Auto) 0.4 (0.0-0.5) % Neut # (Auto) 13.85 H (2.00-7.50) K/uL Lymph # (Auto) 1.38 L (1.50-4.00) K/uL [place] # (Auto) 1.84 H (0.20-0.80) K/uL Eos # (Auto) 0.10 (0.04-0.40) K/uL Baso # (Auto) 0.07 (0.02-0.10) K/uL VBG pH 7.43 H (7.31-7.41) Sodium 144 (136-145) mmol/L Potassium 4.1 (3.5-5.1) mmol/L Chloride 97 L (98-107) mmol/L Carbon Dioxide 42.5 H (21.0-32.0) mmol/L Anion Gap 8.6 (5.0-15.0) mmol/L BUN 16 (8-26) mg/dL Creatinine 0.83 (0.55-1.02) mg/dL Est Cr Clr Drug Dosing TNP Estimated GFR (MDRD) > 60 (>60) MLS/MIN BUN/Creatinine Ratio 19.3 (6-25) Glucose 62 L D (74-100) mg/dL Lactic Acid (0.90-1.70) mmol/L Calcium 9.6 (8.5-10.1) mg/dL Total Bilirubin 0.6 (0.0-1.0) mg/dL AST 22 (15-37) U/L ALT 27 (12-78) U/L Alkaline Phosphatase 117 H (46-116) U/L Troponin I < 0.017 (0.000-0.060) ng/mL Total Protein 7.5 (6.4-8.2) g/dL Albumin 3.0 L (3.4-5.0) g/dL Globulin 4.5 H (2.2-4.2) g/dL Albumin/Globulin Ratio 0.7 L (0.8-2.0) TSH, Ultra Sensitive 0.263 L D (0.358-3.740) uIU/mL Urine Color Urine Appearance (CLEAR) Urine pH (5.0-8.0) Ur Specific [place] (1.003-1.030) Urine Protein (NEGATIVE) mg/dL Urine Glucose (UA) (NEGATIVE) mg/dL Urine Ketones (NEGATIVE) mg/dL Urine Occult Blood (NEGATIVE) Urine Nitrite (NEGATIVE) Urine Bilirubin (NEGATIVE) Urine Urobilinogen (0.2-1.0) E.U./dL Ur Leukocyte Esterase (NEGATIVE) Urine RBC /HPF Urine WBC /HPF Ur Epithelial Cells /HPF Urine Other Urine Opiates Screen (NEGATIVE) Ur Oxycodone Screen (NEGATIVE) Urine Methadone Screen (NEGATIVE) Ur Barbiturates Screen (NEGATIVE) Ur Tricyclics Screen (NEGATIVE) Ur Phencyclidine Scrn (NEGATIVE) Ur Amphetamine Screen (NEGATIVE) U Methamphetamines Scrn (NEGATIVE) Urine MDMA Screen (NEGATIVE) U Benzodiazepines Scrn (NEGATIVE) U Cocaine Metab Screen (NEGATIVE) U Marijuana (THC) Screen (NEGATIVE) 03/05/19 03/05/19 03/05/19 Range/Units 11:55 12:58 12:58 WBC (4.0-11.0) K/uL RBC (3.80-5.80) M/uL Hgb (11.5-16.5) g/dL Hct (37.0-47.0) % MCV (76-96) fL MCH (27.0-32.0) pg MCHC (31.0-35.0) g/dL RDW (11.0-16.0) % Plt Count (150-500) K/uL MPV (6.0-10.0) fL Neut % (Auto) (45.0-70.0) % Lymph % (Auto) (20.0-40.0) % [place] % (Auto) (3.0-10.0) % Eos % (Auto) (1.0-5.0) % Baso % (Auto) (0.0-0.5) % Neut # (Auto) (2.00-7.50) K/uL Lymph # (Auto) (1.50-4.00) K/uL [place] # (Auto) (0.20-0.80) K/uL Eos # (Auto) (0.04-0.40) K/uL Baso # (Auto) (0.02-0.10) K/uL VBG pH (7.31-7.41) Sodium (136-145) mmol/L Potassium (3.5-5.1) mmol/L Chloride (98-107) mmol/L Carbon Dioxide (21.0-32.0) mmol/L Anion Gap (5.0-15.0) mmol/L BUN (8-26) mg/dL Creatinine (0.55-1.02) mg/dL Est Cr Clr Drug Dosing Estimated GFR (MDRD) (>60) MLS/MIN BUN/Creatinine Ratio (6-25) Glucose (74-100) mg/dL Lactic Acid 0.88 L (0.90-1.70) mmol/L Calcium (8.5-10.1) mg/dL Total Bilirubin (0.0-1.0) mg/dL AST (15-37) U/L ALT (12-78) U/L Alkaline Phosphatase (46-116) U/L Troponin I (0.000-0.060) ng/mL Total Protein (6.4-8.2) g/dL Albumin (3.4-5.0) g/dL Globulin (2.2-4.2) g/dL Albumin/Globulin Ratio (0.8-2.0) TSH, Ultra Sensitive (0.358-3.740) uIU/mL Urine Color Yellow Urine Appearance Slightly cloudy (CLEAR) Urine pH >= 9.0 H (5.0-8.0) Ur Specific [place] 1.020 (1.003-1.030) Urine Protein >=300 H (NEGATIVE) mg/dL Urine Glucose (UA) Negative (NEGATIVE) mg/dL Urine Ketones 15 H (NEGATIVE) mg/dL Urine Occult Blood Moderate H (NEGATIVE) Urine Nitrite Negative (NEGATIVE) Urine Bilirubin Small H (NEGATIVE) Urine Urobilinogen 0.2 (0.2-1.0) E.U./dL Ur Leukocyte Esterase Negative (NEGATIVE) Urine RBC 30-40 H /HPF Urine WBC 20-30 H /HPF Ur Epithelial Cells Few /HPF Urine Other Urine Opiates Screen Negative (NEGATIVE) Ur Oxycodone Screen Negative (NEGATIVE) Urine Methadone Screen Negative (NEGATIVE) Ur Barbiturates Screen Negative (NEGATIVE) Ur Tricyclics Screen Negative (NEGATIVE) Ur Phencyclidine Scrn Negative (NEGATIVE) Ur Amphetamine Screen Negative (NEGATIVE) U Methamphetamines Scrn Negative (NEGATIVE) Urine MDMA Screen Negative (NEGATIVE) U Benzodiazepines Scrn Positive H (NEGATIVE) U Cocaine Metab Screen Negative (NEGATIVE) U Marijuana (THC) Screen Negative (NEGATIVE) Meds: Medications Generic Name Dose Route Start Last Admin Trade Name Freq PRN Reason Stop Dose Admin Ceftriaxone Sodium 1 gm 03/05/19 14:15 03/05/19 15:09 Rocephin IVPUSH 1 gm Q24H MATTHEW Administration Sodium Chloride 1,000 mls @ 999 mls/hr 03/05/19 11:45 03/05/19 12:14 Normal Saline IV 999 mls/hr ASDIRECTED MATTHEW Administration Sodium Chloride 1,000 mls @ 100 mls/hr 03/05/19 14:15 03/05/19 14:52 Normal Saline IV 100 mls/hr ASDIRECTED MATTHEW Administration Sodium Chloride 10 ml 03/05/19 11:42 03/05/19 12:10 Saline Flush FLUSH 10 ml ASDIRECTED PRN Administration Keep Vein Open Departure - Departure Time of Disposition: 15:00 Disposition: Refer to Observation Condition: Fair Clinical Impression: Weakness generalized Elevated WBC count Qualifiers: Leukocytosis type: other Qualified Code(s): D72.828 - Other elevated white blood cell count - Discharge Information - Problem List & Annotations (1) Shortness of breath SNOMED Code(s): 666350154 Code(s): R06.02 - SHORTNESS OF BREATH Status: Acute Current Visit: No (2) Leukocytosis SNOMED Code(s): 065381382, 279011218 Code(s): D72.829 - ELEVATED WHITE BLOOD CELL COUNT, UNSPECIFIED Status: Acute Current Visit: Yes Qualifiers: Leukocytosis type: other Qualified Code(s): D72.828 - Other elevated white blood cell count (3) COLD, Chronic obstructive lung disease SNOMED Code(s): 89140927 Code(s): J44.9 - CHRONIC OBSTRUCTIVE PULMONARY DISEASE, UNSPECIFIED Status : Chronic Priority: High Current Visit: No Onset Date: Unknown Annotation/Comment:: 11/14/2014 patient was given a nebulizer on the ambulance and she doesnt seem in distress. Blood gases done via venous with ph 7.42 and pco2 67, po2 43.6 At this time will continue with normal meds as at home. (4) Chronic hypercapnic respiratory failure SNOMED Code(s): 623867123 Code(s): J96.12 - CHRONIC RESPIRATORY FAILURE WITH HYPERCAPNIA Status: Chronic Priority: Medium Current Visit: No (5) Generalized weakness SNOMED Code(s): 49573097 Code(s): R53.1 - WEAKNESS Status: Acute Priority: High Current Visit: Yes (6) Dehydration SNOMED Code(s): 80766393 Code(s): E86.0 - DEHYDRATION Status: Acute Priority: High Current Visit : Yes - Problem List Review Problem List Initiated/Reviewed/Updated: Yes - My Orders Last 24 Hours: My Active Orders 03/05/19 11:42 Sodium Chloride 0.9% [Saline Flush] 10 ml FLUSH ASDIRECTED PRN Peripheral IV Insertion Adult [OM.PC] Routine 03/05/19 11:45 Sodium Chloride 0.9% [Normal Saline] 1,000 ml IV ASDIRECTED 03/05/19 11:47 EKG Documentation Completion [RC] ASDIRECTED 03/05/19 11:55 THYROXINE (T4) FREE, DIRECT, S Routine - Assessment/Plan Last 24 Hours: My Active Orders 03/05/19 11:42 Sodium Chloride 0.9% [Saline Flush] 10 ml FLUSH ASDIRECTED PRN Peripheral IV Insertion Adult [OM.PC] Routine 03/05/19 11:45 Sodium Chloride 0.9% [Normal Saline] 1,000 ml IV ASDIRECTED 03/05/19 11:47 EKG Documentation Completion [RC] ASDIRECTED 03/05/19 11:55 THYROXINE (T4) FREE, DIRECT, S Routine Plan: Patient to be placed in observation for management of symptoms. Discussed dehydration and management. F/u labs in AM and monitor WBC. Start Rocephin as directed.
[2019-03-05] MEDS ORDERED: cefTRIAXone 1 GM Vial IVPUSH SCH (14:15)
[2019-03-05] MEDS: Sodium Chloride 0.9% 1,000 ML IV SCH (14:52)
--- NOTE | 2019-03-05 14:55 | CR ---
Date of Service: 03/05/19 Clinical Data: weakness, shortness of breath AP CHEST: Comparison is made to a prior exam dated 02/15/19. Tracheostomy tube is unchanged in position. The heart size is stable. There is infiltrate and masslike consolidation adjacent to the aortic arch on the left. Pneumonia should be considered. There is also some increased density in the right lower lung that partially obscures the right heart border suggesting right middle lobe infiltrate or atelectasis. No pneumothorax. No pleural effusions. [id number] [facility]
[2019-03-05] MEDS ORDERED: Albuterol/Ipratropium 3.0-0.5 MG/3 ML Neb Soln ONE (18:21)
[2019-03-05] MEDS: Albuterol 0.083% 2.5 MG/3 ML Neb Soln NEB PRN (18:30)
[2019-03-05] MEDS ORDERED: HYDROXYZINE HCL 25 MG PO PRN (20:51)
[2019-03-05] MEDS ORDERED: GUAIFENESIN 600 MG PO PRN (20:51)
[2019-03-05] MEDS ORDERED: MELATONIN 5 MG PO SCH (20:57)
[2019-03-06] MEDS: Sodium Chloride 0.9% 1,000 ML IV SCH (01:19)
[2019-03-06] MEDS ORDERED: [UNRECOGNIZED DRUG - OTHER] SQ SCH ×2 (07:00→20:00)
[2019-03-06] MEDS ORDERED: INSULIN GLARGINE HUM REC ANLOG SQ SCH ×2 (07:00→20:00)
[2019-03-06] MEDS ORDERED: DIGOXIN 125 MCG PO SCH (08:00)
[2019-03-06] MEDS ORDERED: Furosemide 40 MG Tab **OWN MED PO SCH (08:00)
[2019-03-06] MEDS ORDERED: Omeprazole 20 MG Cap.CR **OWN MED PO SCH (08:00)
[2019-03-06] MEDS ORDERED: PERFOROMIST INH SCH (08:00)
[2019-03-06] MEDS ORDERED: QUEtiapine 25 MG Tab **OWN MED PO SCH ×2 (08:00→20:00)
[2019-03-06] MEDS ORDERED: PREDNISONE 10 MG PO SCH (08:00)
[2019-03-06] MEDS ORDERED: ROFLUMILAST 500 MCG PO SCH (08:00)
[2019-03-06] MEDS ORDERED: Metoprolol Tartrate 25 MG Tab **OWN MED PO SCH (08:00)
[2019-03-06] MEDS ORDERED: Non-Formulary Medication 1 Each (Umeclidinium Bromide [Incruse Ellipta] 1 PUFF) IH SCH (08:00)
[2019-03-06] MEDS ORDERED: diphenhydrAMINE 25 MG Cap **OWN MED PO SCH (08:00)
[2019-03-06] MEDS ORDERED: DILTIAZEM 240 MG PO SCH (08:00)
[2019-03-06] MEDS ORDERED: NYSTATIN PO SCH (08:00)
[2019-03-06] MEDS ORDERED: ALBUTEROL 2.5 MG/3 ML INH SCH (08:00)
[2019-03-06] MEDS ORDERED: CHOLECALCIFEROL 2000 UNIT PO SCH (08:00)
[2019-03-06] MEDS: Albuterol 0.083% 2.5 MG/3 ML Neb Soln NEB PRN (08:10)
[2019-03-06] MEDS ORDERED: Budesonide 0.5 MG/2 ML Neb Susp NEB SCH (08:30)
[2019-03-06] MEDS ORDERED: Albuterol 8 GM Inhaler INH PRN (08:30)
[2019-03-06 09:49] VITALS: BP 182/99; PULSE 76
[2019-03-06] MEDS ORDERED: MULTIVITAMINS PO SCH (12:00)
--- NOTE | 2019-03-06 15:18 | PCM.DCSUM1 ---
Discharge Summary - Discharge Data Discharge Date: 03/06/19 Discharge Disposition: Home, Self-Care 01 Condition: Fair - Discharge Diagnosis/Problem(s) (1) Shortness of breath SNOMED Code(s): 395466575 ICD Code: R06.02 - SHORTNESS OF BREATH Status: Acute Current Visit: No (2) Leukocytosis SNOMED Code(s): 351808847, 860124614 ICD Code: D72.829 - ELEVATED WHITE BLOOD CELL COUNT, UNSPECIFIED Status: Acute Current Visit: Yes Qualifiers: Leukocytosis type: other Qualified Code(s): D72.828 - Other elevated white blood cell count (3) COLD, Chronic obstructive lung disease SNOMED Code(s): 51246719 ICD Code: J44.9 - CHRONIC OBSTRUCTIVE PULMONARY DISEASE, UNSPECIFIED Status : Chronic Priority: High Current Visit: No Onset Date: Unknown Problem Details: 11/14/2014 patient was given a nebulizer on the ambulance and she doesnt seem in distress. Blood gases done via venous with ph 7.42 and pco2 67, po2 43.6 At this time will continue with normal meds as at home. (4) Chronic hypercapnic respiratory failure SNOMED Code(s): 799947884 ICD Code: J96.12 - CHRONIC RESPIRATORY FAILURE WITH HYPERCAPNIA Status: Chronic Priority: Medium Current Visit: No (5) Generalized weakness SNOMED Code(s): 19480831 ICD Code: R53.1 - WEAKNESS Status: Acute Priority: High Current Visit: Yes (6) Dehydration SNOMED Code(s): 09654863 ICD Code: E86.0 - DEHYDRATION Status: Acute Priority: High Current Visit: Yes - Patient Summary/Data Consults: Consultations 03/05/19 14:06 PT Evaluation and Treatment [CONS] Urgent Please Evaluate and Treat. PT Reason for Consult: Strengthening This query below is only for informational purposes and is not editable. Admission Diagnosis/Problem: Weakness - Patient Instructions Diet: Usual Diet as Tolerated Activity: Bedrest, Rest and Relax Today Driving: Do Not Drive - Discharge Plan Prescriptions/Med Rec: Clindamycin HCl 300 mg PO QID #40 capsule Home Medications: Home Meds guaiFENesin [Mucinex] 600 mg PO BID PRN 10/02/14 [History] Omeprazole 20 mg PO DAILY 11/04/14 [History] Desvenlafaxine [Pristiq] 50 mg PO QPM 01/03/16 [History] traMADol [Ultram] 50 mg PO TID 01/03/16 [History] Melatonin 5 mg PO BEDTIME 06/22/16 [History] Multivitamins [Childrens Chewable Vitamin] 1 tab PO DAILY@1200 06/22/16 [History ] Umeclidinium [place] [Incruse Ellipta] 1 puff IH DAILY 09/27/16 [History] Digoxin [Lanoxin] 125 mcg PO DAILY tablet 04/01/17 [Rx] Insulin Aspart [NovoLOG] 0 unit SUBCUT TIDMEALS pen 04/01/17 [Rx] Albuterol Sulfate 2.5 mg IH QID 09/27/17 [History] Formoterol Fumarate [Perforomist] 1 vial INH BID 09/27/17 [History] Furosemide 40 mg PO DAILY 09/27/17 [History] Montelukast Sodium 10 mg PO DAILY 09/27/17 [History] Roflumilast [Daliresp] 500 mcg PO DAILY 09/27/17 [History] Metoprolol Tartrate [Lopressor] 25 mg PO Q12HR 30 Days #60 tab 09/29/17 [Rx] QUEtiapine [SEROquel] 25 mg PO BEDTIME 06/05/18 [History] Cholecalciferol (Vitamin D3) [Vitamin D3] 2,000 unit PO DAILY 02/16/19 [History] Insulin Glargine,Hum.Rec.Anlog [Basaglar Kwikpen U-100] 20 units SQ BEDTIME [History] Insulin Glargine,Hum.Rec.Anlog [Basaglar Kwikpen U-100] 23 units SQ ACBREAKFAST 02/16/19 [History] Nystatin 1 dose PO TID 02/16/19 [History] diphenhydrAMINE HCl [Banophen] 25 mg PO BID 02/16/19 [History] predniSONE [Prednisone] 10 mg PO DAILY #28 tablet 02/16/19 [Rx] Diltiazem HCl [Cartia Xt] 240 mg PO DAILY 03/05/19 [History] QUEtiapine [SEROquel] 12.5 mg PO DAILY 03/05/19 [History] hydrOXYzine HCl [hydrOXYzine] 25 mg PO TID PRN 03/05/19 [History] Albuterol [Proventil Neb Soln] 2.5 mg NEB Q6H PRN neb 03/06/19 [Rx] Albuterol [Ventolin HFA] 8 gm INH Q4H PRN inhaler 03/06/19 [Rx] Budesonide [Pulmicort] 0.5 mg NEB BID neb 03/06/19 [Rx] Clindamycin HCl 300 mg PO QID #40 capsule 03/06/19 [Rx] Umeclidinium [place] [Incruse Ellipta] 1 puff IH DAILY 03/06/19 [Rx] Warfarin Sodium [Coumadin] 8 mg PO DAILY@1800 03/06/19 [Rx] Forms: ED Department Discharge Referrals: PCP,None [Primary Care Provider] - - Discharge Summary/Plan Comment DC Time >30 min.: No Discharge Summary/Plan Comment: Counseled on d/c meds - d/c gabapentin, d/c lorazepam, d/c oxycodone. Discussed breathing concerns and close monitoring and f/u as directed. - General Info Date of Service: 03/06/19 Functional Status: Reports: Pain Controlled, Tolerating Diet - Review of Systems General: Reports: Weakness HEENT: Reports: No Symptoms Pulmonary: Reports: Shortness of Breath Cardiovascular: Reports: No Symptoms Gastrointestinal: Reports: No Symptoms Genitourinary: Reports: No Symptoms Musculoskeletal: Reports: No Symptoms - Patient Data Vitals - Most Recent: Last Vital Signs Temp 36.3 C 03/06/19 05:00 Pulse 76 03/06/19 10:15 Resp 20 03/06/19 05:00 BP 182/99 H 03/06/19 09:48 Pulse Ox 97 03/06/19 05:00 Lab Results - Last 24 hrs: Laboratory Results - last 24 hr 03/06/19 03/06/19 03/06/19 Range/Units 08:46 09:15 09:15 WBC 14.6 H (4.0-11.0) K/uL RBC 4.70 (3.80-5.80) M/uL Hgb 13.0 (11.5-16.5) g/dL Hct 41.5 (37.0-47.0) % MCV 88 (76-96) fL MCH 27.7 (27.0-32.0) pg MCHC 31.3 (31.0-35.0) g/dL RDW 14.4 (11.0-16.0) % Plt Count 267 (150-500) K/uL MPV 9.6 (6.0-10.0) fL Neut % (Auto) 81.4 H (45.0-70.0) % Lymph % (Auto) 8.2 L (20.0-40.0) % [place] % (Auto) 9.8 (3.0-10.0) % Eos % (Auto) 0.2 L (1.0-5.0) % Baso % (Auto) 0.4 (0.0-0.5) % Neut # (Auto) 11.91 H (2.00-7.50) K/uL Lymph # (Auto) 1.20 L (1.50-4.00) K/uL [place] # (Auto) 1.44 H (0.20-0.80) K/uL Eos # (Auto) 0.03 L (0.04-0.40) K/uL Baso # (Auto) 0.06 (0.02-0.10) K/uL Sodium 144 (136-145) mmol/L Potassium 3.7 (3.5-5.1) mmol/L Chloride 101 (98-107) mmol/L Carbon Dioxide 38.1 H (21.0-32.0) mmol/L Anion Gap 8.6 (5.0-15.0) mmol/L BUN 18 (8-26) mg/dL Creatinine 0.92 (0.55-1.02) mg/dL Est Cr Clr Drug Dosing TNP Estimated GFR (MDRD) > 60 (>60) MLS/MIN BUN/Creatinine Ratio 19.6 (6-25) Glucose 98 D (74-100) mg/dL POC Glucose 91 (74-110) mg/dL Calcium 8.7 (8.5-10.1) mg/dL Total Bilirubin 0.5 (0.0-1.0) mg/dL AST 21 (15-37) U/L ALT 24 (12-78) U/L Alkaline Phosphatase 100 (46-116) U/L Total Protein 6.9 (6.4-8.2) g/dL Albumin 2.8 L (3.4-5.0) g/dL Globulin 4.1 (2.2-4.2) g/dL Albumin/Globulin Ratio 0.7 L (0.8-2.0) 03/06/19 Range/Units 11:11 WBC (4.0-11.0) K/uL RBC (3.80-5.80) M/uL Hgb (11.5-16.5) g/dL Hct (37.0-47.0) % MCV (76-96) fL MCH (27.0-32.0) pg MCHC (31.0-35.0) g/dL RDW (11.0-16.0) % Plt Count (150-500) K/uL MPV (6.0-10.0) fL Neut % (Auto) (45.0-70.0) % Lymph % (Auto) (20.0-40.0) % [place] % (Auto) (3.0-10.0) % Eos % (Auto) (1.0-5.0) % Baso % (Auto) (0.0-0.5) % Neut # (Auto) (2.00-7.50) K/uL Lymph # (Auto) (1.50-4.00) K/uL [place] # (Auto) (0.20-0.80) K/uL Eos # (Auto) (0.04-0.40) K/uL Baso # (Auto) (0.02-0.10) K/uL Sodium (136-145) mmol/L Potassium (3.5-5.1) mmol/L Chloride (98-107) mmol/L Carbon Dioxide (21.0-32.0) mmol/L Anion Gap (5.0-15.0) mmol/L BUN (8-26) mg/dL Creatinine (0.55-1.02) mg/dL Est Cr Clr Drug Dosing Estimated GFR (MDRD) (>60) MLS/MIN BUN/Creatinine Ratio (6-25) Glucose (74-100) mg/dL POC Glucose 96 (74-110) mg/dL Calcium (8.5-10.1) mg/dL Total Bilirubin (0.0-1.0) mg/dL AST (15-37) U/L ALT (12-78) U/L Alkaline Phosphatase (46-116) U/L Total Protein (6.4-8.2) g/dL Albumin (3.4-5.0) g/dL Globulin (2.2-4.2) g/dL Albumin/Globulin Ratio (0.8-2.0) Med Orders - Current: Current Medications Albuterol (Proventil Neb Soln) 2.5 mg NEB Q6H PRN PRN Reason: Shortness of Breath Last Admin: 03/06/19 08:10 Dose: 2.5 mg Albuterol (Ventolin Hfa) 8 gm INH Q4H PRN PRN Reason: Shortness of Breath Budesonide (Pulmicort) 0.5 mg NEB BID [facility] Digoxin (Lanoxin) 125 mcg PO DAILY [facility] Last Admin: 03/06/19 10:15 Dose: 125 mcg Diltiazem HCl (Dilacor Xr) 240 mg PO DAILY [facility] Last Admin: 03/06/19 10:16 Dose: 240 mg Diphenhydramine HCl (Benadryl) 25 mg PO BID [facility] Furosemide (Lasix) 40 mg PO DAILY [facility] Last Admin: 03/06/19 09:47 Dose: 40 mg Guaifenesin (Mucinex) 600 mg PO BID PRN PRN Reason: Congestion Last Admin: 03/06/19 10:16 Dose: 600 mg Hydroxyzine HCl (Atarax) 25 mg PO TID PRN PRN Reason: Anxiety Sodium Chloride (Normal Saline) 1,000 mls @ 999 mls/hr IV ASDIRECTED [facility] Last Admin: 03/05/19 12:14 Dose: 999 mls/hr Sodium Chloride (Normal Saline) 1,000 mls @ 100 mls/hr IV ASDIRECTED [facility] Last Admin: 03/06/19 01:19 Dose: 100 mls/hr Metoprolol Tartrate (Lopressor) 25 mg PO Q12HR [facility] Last Admin: 03/06/19 09:48 Dose: 25 mg Montelukast Sodium (Singulair) 10 mg PO DAILY [facility] Desvenlafaxine [ Pristiq] 50 Mg Own Med 50 mg PO QPM [facility] Perforomist 1 Vial (Own Med) 1 vial INH BID [facility] Last Admin: 03/06/19 08:20 Dose: 1 vial Non-Formulary Medication (Insulin Aspart [Novolog]) 0 unit SUBCUT TIDMEALS [facility] Non-Formulary Medication (Insulin Glargine,Hum.Rec.Anlog [Basaglar Kwikpen U-100 ]) 20 units SQ BEDTIME [facility] Non-Formulary Medication (Insulin Glargine,Hum.Rec.Anlog [Basaglar Kwikpen U-100 ]) 23 units SQ ACBREAKFAST [facility] Last Admin: 03/06/19 10:17 Dose: 23 units Melatonin 5 Mg (Own Med) 5 mg PO BEDTIME [facility] Non-Formulary Medication (Nystatin [Nystatin]) 1 dose PO TID [facility] Non-Formulary Medication (Prednisone [Prednisone]) 10 mg PO DAILY [facility] Last Admin: 03/06/19 09:47 Dose: 10 mg Non-Formulary Medication (Umeclidinium [place] [Incruse Ellipta]) 1 puff IH DAILY [facility] Last Admin: 03/06/19 08:30 Dose: 1 puff Non-Formulary Medication (Warfarin Sodium [Coumadin]) 8 mg PO DAILY@1800 [facility] Omeprazole (Omeprazole) 20 mg PO DAILY [facility] Quetiapine Fumarate (Seroquel) 12.5 mg PO DAILY [facility] Last Admin: 03/06/19 14:15 Dose: Not Given Quetiapine Fumarate (Seroquel) 25 mg PO BEDTIME [facility] Roflumilast (Daliresp) 500 mcg PO DAILY [facility] Sodium Chloride (Saline Flush) 10 ml FLUSH ASDIRECTED PRN PRN Reason: Keep Vein Open Last Admin: 03/05/19 12:10 Dose: 10 ml Discontinued Medications Albuterol/Ipratropium (Duoneb 3.0-0.5 Mg/3 Ml) Confirm Administered Dose 3 ml .ROUTE .STK-MED ONE Stop: 03/05/19 18:22 Last Admin: 03/05/19 20:21 Dose: Not Given Ceftriaxone Sodium (Rocephin) 1 gm IVPUSH Q24H [facility] Last Admin: 03/05/19 15:09 Dose: 1 gm Clindamycin HCl (Cleocin) Confirm Administered Dose 300 mg .ROUTE .STK-MED ONE Stop: 03/06/19 14:18 - Exam Quality Assessment: Reports: Supplemental Oxygen General: Reports: Alert, Oriented, Cooperative HEENT: Reports: Pupils Equal, Pupils Reactive, EOMI Neck: Reports: Supple, Other (trach tube stable) Lungs: Reports: Clear to Auscultation, Normal Respiratory Effort Cardiovascular: Reports: Regular Rate, Regular Rhythm GI/Abdominal Exam: Normal Bowel Sounds, Soft, Non-Tender Back Exam: Reports: Normal Inspection Extremities: Normal Inspection Skin: Reports: Warm, Dry, Intact
[2019-03-06] MEDS ORDERED: WARFARIN SODIUM 8 MG PO SCH (18:00)
[2019-03-06] MEDS ORDERED: DESVENLAFAXINE 50 MG PO SCH (20:00)
== END 2019-03-06 18:00 | disposition home or self-care (01) ==
LOC: LB.ED 11:27 → UNDOADMOB 13:36 → LB.MS 13:36
PROVIDERS: ADMIT Family Medicine; ATTEND Family Medicine
DX: R53.1 Weakness (principal); E86.0 Dehydration; D72.828 Other elevated white blood cell count; I13.0 Hypertensive heart and chronic kidney disease with heart failure and stage 1 through stage 4 chronic kidney disease, or unspecified chronic kidney disease; E11.22 Type 2 diabetes mellitus with diabetic chronic kidney disease; I50.9 Heart failure, unspecified; N18.9 Chronic kidney disease, unspecified; J44.9 Chronic obstructive pulmonary disease, unspecified; J96.12 Chronic respiratory failure with hypercapnia; F17.200 Nicotine dependence, unspecified, uncomplicated; Z88.2 Allergy status to sulfonamides; Z88.8 Allergy status to other drugs, medicaments and biological substances; Z88.0 Allergy status to penicillin; Z91.013 Allergy to seafood; Z99.81 Dependence on supplemental oxygen; Z79.4 Long term (current) use of insulin; Z79.52 Long term (current) use of systemic steroids; Z79.01 Long term (current) use of anticoagulants; Z79.51 Long term (current) use of inhaled steroids; Z79.891 Long term (current) use of opiate analgesic; Z79.899 Other long term (current) drug therapy
CPT/HCPCS: 36415; 71045; 80053; 80307; 81001; 82800; 82962; 83605; 84439; 84443; 84484; 85025; 87086; 93005; 94640; 96361; 96374; 99285; A9270; G0378; J0696; J7030; 96360; 99217; 99218; A0425; A0429

== ENCOUNTER 2019-05-23 11:04 | Emergency (ER) | payer MEDICARE, MEDICAID ==
[2019-05-23 11:27] VITALS: BP 112/63; PULSE 85
--- NOTE | 2019-05-23 11:46 | EDM.PDOC ---
ED HPI GENERAL MEDICAL PROBLEM - General Stated Complaint: NOT FEEL WELL Time Seen by Provider: 05/23/19 11:25 Source of Information: Reports: Patient History Limitations: Reports: No Limitations - History of Present Illness INITIAL COMMENTS - FREE TEXT/NARRATIVE: This is a 63yo F here for not feeling well. She states she has chills on and off the past few days. She denies fever. She has a mild cough, and some sputum that appears regular for her. She states she just doesn't feel well and can't place a finger on it. Onset: Gradual Duration: Day(s): Location: Reports: Generalized Severity: Mild Improves with: Reports: None Worsens with: Reports: None Associated Symptoms: Reports: Fever/Chills Treatments SUSTAINABILITY OFFICER: Reports: Oxygen Bilateral Shoulder Pain Score (Numeric/FACES): 8 - Related Data Allergies Allergy/AdvReac Type Severity Reaction Status Date / Time Penicillins Allergy Unknown Edema Verified 10/30/18 03:45 shellfish derived Allergy Unknown Anaphylactic Verified 10/30/18 03:45 Shock Sulfa (Sulfonamide Allergy Unknown Edema Verified 10/30/18 03:45 Antibiotics) clonidine AdvReac Intermediate Lethargy Verified 10/30/18 03:45 klonopin AdvReac Lethargy Uncoded 10/30/18 03:45 Home Meds: Home Meds guaiFENesin [Mucinex] 600 mg PO BID PRN 10/02/14 [History] Omeprazole 20 mg PO DAILY 11/04/14 [History] Desvenlafaxine [Pristiq] 50 mg PO QPM 01/03/16 [History] traMADol [Ultram] 50 mg PO TID 01/03/16 [History] Melatonin 5 mg PO BEDTIME 06/22/16 [History] Multivitamins [Childrens Chewable Vitamin] 1 tab PO DAILY@1200 06/22/16 [History ] Umeclidinium [place] [Incruse Ellipta] 1 puff IH DAILY 09/27/16 [History] Digoxin [Lanoxin] 125 mcg PO DAILY tablet 04/01/17 [Rx] Insulin Aspart [NovoLOG] 0 unit SUBCUT TIDMEALS pen 04/01/17 [Rx] Albuterol Sulfate 2.5 mg IH QID 09/27/17 [History] Formoterol Fumarate [Perforomist] 1 vial INH BID 09/27/17 [History] Furosemide 40 mg PO DAILY 09/27/17 [History] Montelukast Sodium 10 mg PO DAILY 09/27/17 [History] Roflumilast [Daliresp] 500 mcg PO DAILY 09/27/17 [History] Metoprolol Tartrate [Lopressor] 25 mg PO Q12HR 30 Days #60 tab 09/29/17 [Rx] QUEtiapine [SEROquel] 25 mg PO BEDTIME 06/05/18 [History] Cholecalciferol (Vitamin D3) [Vitamin D3] 2,000 unit PO DAILY 02/16/19 [History] Insulin Glargine,Hum.Rec.Anlog [Basaglar Kwikpen U-100] 20 units SQ BEDTIME [History] Insulin Glargine,Hum.Rec.Anlog [Basaglar Kwikpen U-100] 23 units SQ ACBREAKFAST 02/16/19 [History] Nystatin 1 dose PO TID 02/16/19 [History] diphenhydrAMINE HCl [Banophen] 25 mg PO BID 02/16/19 [History] predniSONE [Prednisone] 10 mg PO DAILY #28 tablet 02/16/19 [Rx] Diltiazem HCl [Cartia Xt] 240 mg PO DAILY 03/05/19 [History] QUEtiapine [SEROquel] 12.5 mg PO DAILY 03/05/19 [History] hydrOXYzine HCl [hydrOXYzine] 25 mg PO TID PRN 03/05/19 [History] Albuterol [Proventil Neb Soln] 2.5 mg NEB Q6H PRN neb 03/06/19 [Rx] Albuterol [Ventolin HFA] 8 gm INH Q4H PRN inhaler 03/06/19 [Rx] Budesonide [Pulmicort] 0.5 mg NEB BID neb 03/06/19 [Rx] Clindamycin HCl 300 mg PO QID #40 capsule 03/06/19 [Rx] Umeclidinium [place] [Incruse Ellipta] 1 puff IH DAILY 03/06/19 [Rx] Warfarin Sodium [Coumadin] 8 mg PO DAILY@1800 03/06/19 [Rx] Past Medical History HEENT History: Reports: Allergic Rhinitis, Hard of Hearing, Impaired Vision, Other (See Below) Other HEENT History: trach placed x 2 years ago Cardiovascular History: Reports: Heart Failure, Hypertension, Other (See Below) Other Cardiovascular History: a flutter Respiratory History: Reports: SOB Other Respiratory History: SOB excessive plegm Gastrointestinal History: Reports: Chronic Constipation, GERD Genitourinary History: Reports: Chronic Renal Insuffiency, UTI, Recurrent Other Genitourinary History: no uti recently PLUMBING DESIGNER History: Reports: Other PLUMBING DESIGNER History: hysterectomy Musculoskeletal History: Reports: Arthritis, Back Pain, Chronic, Neck Pain, Chronic Neurological History: Reports: Migraines Psychiatric History: Reports: Anxiety, Depression Endocrine/Metabolic History: Reports: Diabetes, Type II Hematologic History: Reports: Anemia Oncologic (Cancer) History: Reports: Lung Dermatologic History: Reports: Other (See Below) Other Dermatologic History: bruises easily - Infectious Disease History Infectious Disease History: Reports: Chicken Pox, 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, Other - Past Surgical History HEENT Surgical History: Reports: Other (See Below) GI Surgical History: Reports: Hernia, Abdominal Oncologic Surgical History: Reports: Other (See Below) Other Oncologic Surgeries/Procedures: hx biopsy of lung for cancer diagnosis Social & Family History - Family History Family Medical History: Noncontributory Cardiac: Reports: Hypertension Respiratory: Reports: Asthma, COPD Psychiatric: Reports: Anxiety - Caffeine Use Caffeine Use: Reports: Coffee - Living Situation & Occupation Living situation: Reports: Single, with Significant Other Occupation: Disabled ED ROS GENERAL - Review of Systems Review Of Systems: ROS reveals no pertinent complaints other than HPI. ED EXAM, GENERAL - Physical Exam Exam: See Below Exam Limited By: No Limitations General Appearance: Alert, WD/WN, No Apparent Distress Eye Exam: Bilateral Eye: EOMI Ears: Normal External Exam Nose: Normal Inspection Throat/Mouth: Normal Inspection Head: Atraumatic, Normocephalic Neck: Normal Inspection, Supple, Non-Tender, Full Range of Motion Respiratory/Chest: No Respiratory Distress, Decreased Breath Sounds, Wheezing Cardiovascular: Normal Peripheral Pulses, Regular Rate, Rhythm Peripheral Pulses: 2+: Dorsalis Pedis (L), Dorsalis Pedis (R) GI/Abdominal: Normal Bowel Sounds Extremities: Normal Inspection Course - Vital Signs Last Recorded V/S: Last Vital Signs Temp 36.2 C 05/23/19 11:25 Pulse 85 05/23/19 11:25 Resp 16 05/23/19 11:25 BP 112/63 05/23/19 11:25 Pulse Ox 97 05/23/19 11:25 - Orders/Labs/Meds Orders: Active Orders 24 hr Category Date Time Status EKG Documentation Completion [RC] ASDIRECTED Care 05/23/19 11:16 Active Labs: Laboratory Tests 05/23/19 05/23/19 05/23/19 Range/Units 11:15 11:30 11:30 WBC 10.5 D (4.0-11.0) K/uL RBC 4.78 (3.80-5.80) M/uL Hgb 13.2 (11.5-16.5) g/dL Hct 41.9 (37.0-47.0) % MCV 88 (76-96) fL MCH 27.6 (27.0-32.0) pg MCHC 31.5 (31.0-35.0) g/dL RDW 15.3 (11.0-16.0) % Plt Count 288 D (150-500) K/uL MPV 9.3 (6.0-10.0) fL Neut % (Auto) 78.0 H (45.0-70.0) % Lymph % (Auto) 10.0 L (20.0-40.0) % [place] % (Auto) 10.5 H (3.0-10.0) % Eos % (Auto) 1.0 (1.0-5.0) % Baso % (Auto) 0.5 (0.0-0.5) % Neut # (Auto) 8.19 H (2.00-7.50) K/uL Lymph # (Auto) 1.05 L (1.50-4.00) K/uL [place] # (Auto) 1.10 H (0.20-0.80) K/uL Eos # (Auto) 0.11 (0.04-0.40) K/uL Baso # (Auto) 0.05 (0.02-0.10) K/uL PT 19.8 H D (9.0-11.5) sec INR 2.1 D (1.0-3.5) Sodium (136-145) mmol/L Potassium (3.5-5.1) mmol/L Chloride (98-107) mmol/L Carbon Dioxide (21.0-32.0) mmol/L Anion Gap (5.0-15.0) mmol/L BUN (8-26) mg/dL Creatinine (0.55-1.02) mg/dL Est Cr Clr Drug Dosing mL/min Estimated GFR (MDRD) (>60) MLS/MIN BUN/Creatinine Ratio (6-25) Glucose (74-100) mg/dL Calcium (8.5-10.1) mg/dL Total Bilirubin (0.0-1.0) mg/dL AST (15-37) U/L ALT (12-78) U/L Alkaline Phosphatase (46-116) U/L Troponin I (0.000-0.060) ng/mL B-Natriuretic Peptide (0-125) pg/mL Total Protein (6.4-8.2) g/dL Albumin (3.4-5.0) g/dL Globulin (2.2-4.2) g/dL Albumin/Globulin Ratio (0.8-2.0) TSH, Ultra Sensitive (0.358-3.740) uIU/mL Urine Color Yellow Urine Appearance Clear (CLEAR) Urine pH 7.0 (5.0-8.0) Ur Specific [place] 1.020 (1.003-1.030) Urine Protein Negative (NEGATIVE) mg/dL Urine Glucose (UA) Negative (NEGATIVE) mg/dL Urine Ketones Negative (NEGATIVE) mg/dL Urine Occult Blood Small H (NEGATIVE) Urine Nitrite Negative (NEGATIVE) Urine Bilirubin Negative (NEGATIVE) Urine Urobilinogen 0.2 (0.2-1.0) E.U./dL Ur Leukocyte Esterase Negative (NEGATIVE) Urine RBC 0-5 H /HPF Urine WBC 0-5 H /HPF Ur Squamous Epith Cells Few /HPF Urine Bacteria Occasional /HPF Urine Opiates Screen (NEGATIVE) Ur Oxycodone Screen (NEGATIVE) Urine Methadone Screen (NEGATIVE) Ur Barbiturates Screen (NEGATIVE) Ur Tricyclics Screen (NEGATIVE) Ur Phencyclidine Scrn (NEGATIVE) Ur Amphetamine Screen (NEGATIVE) U Methamphetamines Scrn (NEGATIVE) Urine MDMA Screen (NEGATIVE) U Benzodiazepines Scrn (NEGATIVE) U Cocaine Metab Screen (NEGATIVE) U Marijuana (THC) Screen (NEGATIVE) 05/23/19 05/23/19 Range/Units 11:30 12:47 WBC (4.0-11.0) K/uL RBC (3.80-5.80) M/uL Hgb (11.5-16.5) g/dL Hct (37.0-47.0) % MCV (76-96) fL MCH (27.0-32.0) pg MCHC (31.0-35.0) g/dL RDW (11.0-16.0) % Plt Count (150-500) K/uL MPV (6.0-10.0) fL Neut % (Auto) (45.0-70.0) % Lymph % (Auto) (20.0-40.0) % [place] % (Auto) (3.0-10.0) % Eos % (Auto) (1.0-5.0) % Baso % (Auto) (0.0-0.5) % Neut # (Auto) (2.00-7.50) K/uL Lymph # (Auto) (1.50-4.00) K/uL [place] # (Auto) (0.20-0.80) K/uL Eos # (Auto) (0.04-0.40) K/uL Baso # (Auto) (0.02-0.10) K/uL PT (9.0-11.5) sec INR (1.0-3.5) Sodium 141 (136-145) mmol/L Potassium 4.3 (3.5-5.1) mmol/L Chloride 98 (98-107) mmol/L Carbon Dioxide 44.7 H (21.0-32.0) mmol/L Anion Gap 2.6 L (5.0-15.0) mmol/L BUN 28 H D (8-26) mg/dL Creatinine 1.33 H (0.55-1.02) mg/dL Est Cr Clr Drug Dosing 31.50 mL/min Estimated GFR (MDRD) 40 L (>60) MLS/MIN BUN/Creatinine Ratio 21.1 (6-25) Glucose 190 H D (74-100) mg/dL Calcium 9.1 (8.5-10.1) mg/dL Total Bilirubin 0.3 D (0.0-1.0) mg/dL AST 17 (15-37) U/L ALT 18 (12-78) U/L Alkaline Phosphatase 96 (46-116) U/L Troponin I < 0.017 (0.000-0.060) ng/mL B-Natriuretic Peptide 791 H D (0-125) pg/mL Total Protein 6.9 (6.4-8.2) g/dL Albumin 3.0 L (3.4-5.0) g/dL Globulin 3.9 (2.2-4.2) g/dL Albumin/Globulin Ratio 0.8 (0.8-2.0) TSH, Ultra Sensitive 0.620 D (0.358-3.740) uIU/mL Urine Color Urine Appearance (CLEAR) Urine pH (5.0-8.0) Ur Specific [place] (1.003-1.030) Urine Protein (NEGATIVE) mg/dL Urine Glucose (UA) (NEGATIVE) mg/dL Urine Ketones (NEGATIVE) mg/dL Urine Occult Blood (NEGATIVE) Urine Nitrite (NEGATIVE) Urine Bilirubin (NEGATIVE) Urine Urobilinogen (0.2-1.0) E.U./dL Ur Leukocyte Esterase (NEGATIVE) Urine RBC /HPF Urine WBC /HPF Ur Squamous Epith Cells /HPF Urine Bacteria /HPF Urine Opiates Screen Negative (NEGATIVE) Ur Oxycodone Screen Positive H (NEGATIVE) Urine Methadone Screen Negative (NEGATIVE) Ur Barbiturates Screen Negative (NEGATIVE) Ur Tricyclics Screen Negative (NEGATIVE) Ur Phencyclidine Scrn Negative (NEGATIVE) Ur Amphetamine Screen Negative (NEGATIVE) U Methamphetamines Scrn Negative (NEGATIVE) Urine MDMA Screen Negative (NEGATIVE) U Benzodiazepines Scrn Negative (NEGATIVE) U Cocaine Metab Screen Negative (NEGATIVE) U Marijuana (THC) Screen Negative (NEGATIVE) Departure - Departure Time of Disposition: 14:00 Disposition: Home, Self-Care 01 Condition: Good Clinical Impression: Shortness of breath - Discharge Information Instructions: Viral Respiratory Infection, [id number] Referrals: PCP,None [Primary Care Provider] - Care Plan Goals: Get medications filled at local pharmacy. Return to hospital with any further questions or concerns. May take 18 units of long acting insulin at night. - Problem List & Annotations (1) Shortness of breath SNOMED Code(s): 802152058 Code(s): R06.02 - SHORTNESS OF BREATH Status: Acute Current Visit: Yes - Problem List Review Problem List Initiated/Reviewed/Updated: Yes - My Orders Last 24 Hours: My Active Orders 05/23/19 11:16 EKG Documentation Completion [RC] ASDIRECTED - Assessment/Plan Last 24 Hours: My Active Orders 05/23/19 11:16 EKG Documentation Completion [RC] ASDIRECTED Plan: Counseled on labs and EKG. Discussed supportive care and continued close monitoring and f/u. RTC or ER as needed if any further concerns.
--- NOTE | 2019-05-23 14:59 | CR ---
DATE OF SERVICE: 05/23/19 CLINICAL DATA: Shortness of breath. AP CHEST: Comparison is made to a prior exam dated 05/09/19. The tracheostomy tube remains unchanged in position. The heart size is stable. There is persistent soft tissue fullness adjacent to the aortic arch and within the AP window, unchanged. The moderate sized right pleural effusion on the prior exam has significantly decreased in volume. The right lung base is also clear and better aerated than on the prior study. The left lung remains unchanged. No pneumothorax. [id number] MTDD
== END 2019-05-23 13:30 | disposition home or self-care (01) ==
LOC: LB.ED 11:04
DX: R06.02 Shortness of breath (principal); E11.22 Type 2 diabetes mellitus with diabetic chronic kidney disease; I12.9 Hypertensive chronic kidney disease with stage 1 through stage 4 chronic kidney disease, or unspecified chronic kidney disease; N18.9 Chronic kidney disease, unspecified; K21.9 Gastro-esophageal reflux disease without esophagitis; F32.9 Major depressive disorder, single episode, unspecified; Z88.0 Allergy status to penicillin; Z88.2 Allergy status to sulfonamides; Z88.8 Allergy status to other drugs, medicaments and biological substances; Z91.013 Allergy to seafood; Z79.899 Other long term (current) drug therapy; Z79.4 Long term (current) use of insulin; Z79.01 Long term (current) use of anticoagulants
CPT/HCPCS: 36415; 71045; 80053; 80307; 81001; 83880; 84443; 84484; 85025; 85610; 87804; 93005; 99284; A0425; A0429; 99283

== ENCOUNTER 2019-06-22 15:41 | Inpatient (IN) | payer MEDICARE, MEDICAID ==
[2019-06-22] MEDS ORDERED: Sodium Chloride 0.9% 10 ML Syringe FLUSH PRN (16:18)
--- NOTE | 2019-06-22 16:24 | EDM.PDOC ---
ED HPI GENERAL MEDICAL PROBLEM - General Chief Complaint: Respiratory Problem Stated Complaint: SOB Time Seen by Provider: 06/22/19 16:10 Source of Information: Reports: Patient, EMS, RN Notes Reviewed History Limitations: Reports: No Limitations - History of Present Illness INITIAL COMMENTS - FREE TEXT/NARRATIVE: This patient presents to the ED for evaluation of respiratory distress. 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 She has also felt that she needed some additional oxygen and has been using 2.5-3 L per trach at home. She states that her appetite has been significantly decreased and that she has not been drinking well and feels "dehydrated." She has not had any vomiting or diarrhea. she denies other concerns or complaints. Patient states her accuchecks at home have been 64-168; however, she sometimes feels lower and gets sweaty and light headed. 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 Treatments - Related Data Allergies Allergy/AdvReac Type Severity Reaction Status Date / Time Penicillins Allergy Unknown Edema Verified 06/22/19 16:09 shellfish derived Allergy Unknown Anaphylactic Verified 06/22/19 16:09 Shock Sulfa (Sulfonamide Allergy Unknown Edema Verified 06/22/19 16:09 Antibiotics) clonidine AdvReac Intermediate Lethargy Verified 06/22/19 16:09 klonopin AdvReac Lethargy Uncoded 10/30/18 03:45 Home Meds: Home Meds guaiFENesin [Mucinex] 600 mg PO BID PRN 10/02/14 [History] Omeprazole 20 mg PO DAILY 11/04/14 [History] Desvenlafaxine [Pristiq] 50 mg PO QPM 01/03/16 [History] traMADol [Ultram] 50 mg PO TID 01/03/16 [History] Melatonin 5 mg PO BEDTIME 06/22/16 [History] Multivitamins [Childrens Chewable Vitamin] 1 tab PO DAILY@1200 06/22/16 [History ] Umeclidinium Addison [Incruse Ellipta] 1 puff IH DAILY 03/06/17 [History] Digoxin [Lanoxin] 125 mcg PO DAILY tablet 04/01/17 [Rx] Insulin Aspart [NovoLOG] 0 unit SUBCUT TIDMEALS pen 04/01/17 [Rx] Albuterol Sulfate 2.5 mg IH QID 09/27/17 [History] Formoterol Fumarate [Perforomist] 1 vial INH BID 09/27/17 [History] Furosemide 40 mg PO DAILY 09/27/17 [History] Montelukast Sodium 10 mg PO PCLUNCH 09/27/17 [History] Roflumilast [Daliresp] 500 mcg PO DAILY 09/27/17 [History] Metoprolol Tartrate [Lopressor] 25 mg PO Q12HR 30 Days #60 tab 09/29/17 [Rx] QUEtiapine [SEROquel] 25 mg PO BEDTIME 06/05/18 [History] Cholecalciferol (Vitamin D3) [Vitamin D3] 2,000 unit PO DAILY 02/16/19 [History] Insulin Glargine,Hum.Rec.Anlog [Basaglar Kwikpen U-100] 20 units SQ BEDTIME [History] Insulin Glargine,Hum.Rec.Anlog [Basaglar Kwikpen U-100] 23 units SQ ACBREAKFAST 02/16/19 [History] Nystatin 1 dose PO TID 02/16/19 [History] diphenhydrAMINE HCl [Banophen] 25 mg PO BID 02/16/19 [History] predniSONE [Prednisone] 10 mg PO DAILY #28 tablet 02/16/19 [Rx] Diltiazem HCl [Cartia Xt] 240 mg PO DAILY 03/05/19 [History] QUEtiapine [SEROquel] 12.5 mg PO DAILY 03/05/19 [History] hydrOXYzine HCl [hydrOXYzine] 25 mg PO TID PRN 03/05/19 [History] Albuterol [Proventil Neb Soln] 2.5 mg NEB Q6H PRN neb 03/06/19 [Rx] Albuterol [Ventolin HFA] 8 gm INH Q4H PRN inhaler 03/06/19 [Rx] Budesonide [Pulmicort] 0.5 mg NEB BID neb 03/06/19 [Rx] Clindamycin HCl 300 mg PO QID #40 capsule 03/06/19 [Rx] Umeclidinium Addison [Incruse Ellipta] 1 puff IH DAILY 03/06/19 [Rx] Warfarin Sodium [Coumadin] 8 mg PO DAILY@1800 03/06/19 [Rx] Past Medical History HEENT History: Reports: Allergic Rhinitis, Hard of Hearing, Impaired Vision, Other (See Below) Other HEENT History: trach placed x 2 years ago Cardiovascular History: Reports: Heart Failure, Hypertension, Other (See Below) Other Cardiovascular History: a flutter Respiratory History: Reports: SOB Other Respiratory History: SOB excessive plegm Gastrointestinal History: Reports: Chronic Constipation, GERD Genitourinary History: Reports: Chronic Renal Insuffiency, UTI, Recurrent Other Genitourinary History: no uti recently ROUTER TENDER History: Reports: Other ROUTER TENDER History: hysterectomy Musculoskeletal History: Reports: Arthritis, Back Pain, Chronic, Neck Pain, Chronic Neurological History: Reports: Migraines Psychiatric History: Reports: Anxiety, Depression Endocrine/Metabolic History: Reports: Diabetes, Type II Hematologic History: Reports: Anemia Oncologic (Cancer) History: Reports: Lung Dermatologic History: Reports: Other (See Below) Other Dermatologic History: bruises easily - Infectious Disease History Infectious Disease History: Reports: Chicken Pox, 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, Other - Past Surgical History HEENT Surgical History: Reports: Other (See Below) GI Surgical History: Reports: Hernia, Abdominal Oncologic Surgical History: Reports: Other (See Below) Other Oncologic Surgeries/Procedures: hx biopsy of lung for cancer diagnosis Social & Family History - Family History Family Medical History: Noncontributory Cardiac: Reports: Hypertension Respiratory: Reports: Asthma, COPD Psychiatric: Reports: Anxiety - Caffeine Use Caffeine Use: Reports: Coffee - Living Situation & Occupation Living situation: Reports: Single, with Significant Other Occupation: Disabled ED ROS GENERAL - Review of Systems Review Of Systems: See Below Constitutional: Reports: Fever, Weakness, Fatigue, Decreased Appetite HEENT: Reports: Rhinitis. Denies: Ear Pain, Eye Pain, Throat Pain Respiratory: Reports: Shortness of Breath, Wheezing, Cough, Sputum Cardiovascular: Reports: Chest Pain Endocrine: Reports: No Symptoms GI/Abdominal: Reports: Decreased Appetite, Nausea. Denies: Diarrhea, Vomiting Musculoskeletal: Reports: No Symptoms Neurological: Reports: No Symptoms ED EXAM, GENERAL - Physical Exam Exam: See Below Exam Limited By: No Limitations General Appearance: Alert, WD/WN, Moderate Distress Eye Exam: Bilateral Eye: PERRL Ears: Normal External Exam Nose: Normal Inspection, Nasal Drainage, Nasal Flaring Throat/Mouth: Normal Inspection, Other (trach) Head: Atraumatic, Normocephalic Neck: Normal Inspection, Full Range of Motion Respiratory/Chest: Chest Non-Tender, Decreased Breath Sounds, Crackles, Wheezing , Accessory Muscle Use, Other (tachypneic, difficulty speaking in full sentences ) Cardiovascular: Regular Rate, Rhythm Back Exam: Normal Inspection Extremities: Normal Inspection, Normal Range of Motion Skin Exam: Warm, Dry, Intact Course - Orders/Labs/Meds Orders: Active Orders 24 hr Category Date Time Status Patient Status [ADT] Routine ADT 06/22/19 17:09 Ordered Blood Glucose Check, Bedside [RC] QIDACANDBED Care 06/22/19 17:09 Ordered Oxygen Therapy [RC] PRN Care 06/22/19 17:09 Ordered Up With Assistance [RC] ASDIRECTED Care 06/22/19 17:09 Ordered VTE/DVT Education [RC] Per Unit Routine Care 06/22/19 17:09 Ordered Vital Signs [RC] Q4H Care 06/22/19 17:09 Ordered OT Evaluation and Treatment [CONS] Routine Cons 06/22/19 17:09 Ordered PT Evaluation and Treatment [CONS] Routine Cons 06/22/19 17:09 Ordered Regular Diet [DIET] Diet 06/22/19 Dinner Ordered BASIC METABOLIC PANEL,BMP [CHEM] DAILY Lab 06/23/19 07:00 Ordered CBC WITH AUTO DIFF [HEME] DAILY Lab 06/23/19 07:00 Ordered Acetaminophen [Tylenol] Med 06/22/19 17:09 Ordered 650 mg PO Q4H PRN Albuterol [Proventil Neb Soln] Med 06/22/19 17:17 Ordered 2.5 mg NEB Q6H PRN Albuterol [Ventolin HFA] Med 06/22/19 17:17 Ordered 8 gm INH Q4H PRN Budesonide [Pulmicort] Med 06/22/19 17:30 Ordered 0.5 mg NEB BID Cholecalciferol (Vitamin D3) [Vitamin D3] Med 06/23/19 08:00 Ordered 2,000 unit PO DAILY Desvenlafaxine [Pristiq] Med 06/22/19 20:00 Ordered 50 mg PO QPM Digoxin [Lanoxin] Med 06/23/19 08:00 Ordered 125 mcg PO DAILY Diltiazem HCl [Cartia Xt] Med 06/23/19 08:00 Ordered 240 mg PO DAILY Formoterol Fumarate [Perforomist] Med 06/22/19 20:00 Ordered 1 vial INH BID Furosemide [Lasix] Med 06/23/19 08:00 Ordered 40 mg PO DAILY Gentamicin 120 mg Med 06/22/19 17:15 Ordered Sodium Chloride 0.9% [Normal Saline] 100 ml IV DAILY Insulin Aspart [NovoLOG] Med 06/22/19 18:00 Ordered See Dose Instructions SUBCUT TIDMEALS Insulin Glarg,Human.Rec.Analog [LantUS Solostar] Med 06/22/19 20:00 Ordered 20 units SUBCUT BEDTIME Insulin Glarg,Human.Rec.Analog [LantUS Solostar] Med 06/23/19 07:00 Ordered 23 units SUBCUT ACBREAKFAST Levofloxacin/Dextrose 5%-Water [Levaquin in D5W 750 MG/ Med 06/22/19 17:15 Ordered 150 ML] 750 mg Premix Bag 1 bag IV Q24H Melatonin [Melatonin] Med 06/22/19 20:00 Ordered 5 mg PO BEDTIME Metoprolol Tartrate [Lopressor] Med 06/22/19 20:00 Ordered 25 mg PO Q12HR Montelukast [Singulair] Med 06/23/19 14:00 Ordered 10 mg PO PCLUNCH Multivitamins [Childrens Chewable Vitamin] Med 06/23/19 12:00 Ordered 1 tab PO DAILY@1200 Nystatin [Mycostatin] Med 06/22/19 20:00 Ordered 1 dose PO TID Omeprazole Med 06/23/19 08:00 Ordered 20 mg PO DAILY Ondansetron [Zofran] Med 06/22/19 17:09 Ordered 4 mg IV Q4H PRN QUEtiapine [SEROqueL] Med 06/23/19 08:00 Ordered 12.5 mg PO DAILY QUEtiapine [SEROqueL] Med 06/22/19 20:00 Ordered 25 mg PO BEDTIME Roflumilast [Daliresp] Med 06/23/19 08:00 Ordered 500 mcg PO DAILY Sodium Chloride 0.9% [Saline Flush] Med 06/22/19 16:18 Ordered 10 ml FLUSH ASDIRECTED PRN Umeclidinium Addison [Incruse Ellipta] Med 06/23/19 08:00 Ordered 1 puff IH DAILY Umeclidinium Addison [Incruse Ellipta] Med 06/23/19 08:00 Ordered 1 puff IH DAILY Warfarin Sodium [Coumadin] Med 06/22/19 18:00 Ordered 8 mg PO DAILY@1800 diphenhydrAMINE [Benadryl] Med 06/22/19 20:00 Ordered 25 mg PO BID guaiFENesin [Mucinex] Med 06/22/19 17:17 Ordered 600 mg PO BID PRN hydrOXYzine HCl [Atarax] Med 06/22/19 17:17 Ordered 25 mg PO TID PRN oxyCODONE Med 06/22/19 17:09 Ordered 5 mg PO Q4H PRN predniSONE Med 06/23/19 08:00 Ordered 10 mg PO DAILY traMADol [Ultram] Med 06/22/19 20:00 Ordered 50 mg PO TID Saline Lock Insert [OM.PC] Stat Oth 06/22/19 16:18 Ordered Resuscitation Status Routine Resus Stat 06/22/19 17:09 Ordered Medication Orders Acetaminophen (Tylenol) 650 mg PO Q4H PRN PRN Reason: Pain (Mild 1-3)/fever Albuterol (Proventil Neb Soln) 2.5 mg NEB Q6H PRN PRN Reason: Shortness of Breath Albuterol (Ventolin Hfa) 8 gm INH Q4H PRN PRN Reason: Shortness of Breath Budesonide (Pulmicort) 0.5 mg NEB BID [facility] Desvenlafaxine Succinate (Pristiq) 50 mg PO QPM MATTHEW Digoxin (Lanoxin) 125 mcg PO DAILY MATTHEW Diphenhydramine HCl (Benadryl) 25 mg PO BID MATTHEW Furosemide (Lasix) 40 mg PO DAILY MATTHEW Guaifenesin (Mucinex) 600 mg PO BID PRN PRN Reason: Congestion Hydroxyzine HCl (Atarax) 25 mg PO TID PRN PRN Reason: Anxiety Levofloxacin/Dextrose 750 mg/ (Premix) 150 mls @ 100 mls/hr IV Q24H [facility] Last Admin: 06/22/19 17:47 Dose: 100 mls/hr Gentamicin Sulfate 120 mg/ (Sodium Chloride) 103 mls @ 200 mls/hr IV DAILY [facility] Insulin Aspart (Novolog) 0 unit SUBCUT TIDMEALS [facility] Insulin Glargine (Lantus Solostar) 23 units SUBCUT ACBREAKFAST [facility] Insulin Glargine (Lantus Solostar) 20 units SUBCUT BEDTIME [facility] Metoprolol Tartrate (Lopressor) 25 mg PO Q12HR [facility] Montelukast Sodium (Singulair) 10 mg PO PCLUNCH [facility] Multivitamins/Minerals/Vitamin C (Childrens Chewable Vitamin) 1 tab PO DAILY@ 1200 [facility] Non-Formulary Medication (Cholecalciferol (Vitamin D3) [Vitamin D3]) 2,000 unit PO DAILY [facility] Non-Formulary Medication (Diltiazem Hcl [Cartia Xt]) 240 mg PO DAILY [facility] Non-Formulary Medication (Formoterol Fumarate [Perforomist]) 1 vial INH BID [facility] Non-Formulary Medication (Melatonin [Melatonin]) 5 mg PO BEDTIME [facility] Non-Formulary Medication (Umeclidinium Addison [Incruse Ellipta]) 1 puff IH DAILY [facility] Non-Formulary Medication (Umeclidinium Addison [Incruse Ellipta]) 1 puff IH DAILY [facility] Non-Formulary Medication (Warfarin Sodium [Coumadin]) 8 mg PO DAILY@1800 [facility] Nystatin (Mycostatin) ml PO TID [facility] Omeprazole (Omeprazole) 20 mg PO DAILY [facility] Ondansetron HCl (Zofran) 4 mg IV Q4H PRN PRN Reason: Nausea/Vomiting Oxycodone HCl (Oxycodone) 5 mg PO Q4H PRN PRN Reason: Pain (moderate 4-6) Last Admin: 06/22/19 17:51 Dose: 5 mg Prednisone (Prednisone) 10 mg PO DAILY [facility] Quetiapine Fumarate (Seroquel) 12.5 mg PO DAILY [facility] Quetiapine Fumarate (Seroquel) 25 mg PO BEDTIME [facility] Roflumilast (Daliresp) 500 mcg PO DAILY [facility] Sodium Chloride (Saline Flush) 10 ml FLUSH ASDIRECTED PRN PRN Reason: Keep Vein Open Last Admin: 06/22/19 16:50 Dose: 10 ml Tramadol HCl (Ultram) 50 mg PO TID [facility] Labs: Laboratory Tests 06/22/19 06/22/19 06/22/19 Range/Units 16:30 16:30 16:30 WBC 28.2 H* D (4.0-11.0) K/uL RBC 4.72 (3.80-5.80) M/uL Hgb 13.0 (11.5-16.5) g/dL Hct 41.1 (37.0-47.0) % MCV 87 (76-96) fL MCH 27.5 (27.0-32.0) pg MCHC 31.6 (31.0-35.0) g/dL RDW 15.1 (11.0-16.0) % Plt Count 266 (150-500) K/uL MPV 10.1 H (6.0-10.0) fL Neut % (Auto) 89.3 H (45.0-70.0) % Lymph % (Auto) 2.3 L (20.0-40.0) % George % (Auto) 8.2 (3.0-10.0) % Eos % (Auto) 0.0 L (1.0-5.0) % Baso % (Auto) 0.2 (0.0-0.5) % Neut # (Auto) 25.20 H (2.00-7.50) K/uL Lymph # (Auto) 0.64 L (1.50-4.00) K/uL George # (Auto) 2.30 H (0.20-0.80) K/uL Eos # (Auto) 0.01 L (0.04-0.40) K/uL Baso # (Auto) 0.07 (0.02-0.10) K/uL Sodium 137 (136-145) mmol/L Potassium 4.2 (3.5-5.1) mmol/L Chloride 91 L (98-107) mmol/L Carbon Dioxide 38.2 H (21.0-32.0) mmol/L Anion Gap 12.0 (5.0-15.0) mmol/L BUN 40 H D (8-26) mg/dL Creatinine 1.42 H (0.55-1.02) mg/dL Est Cr Clr Drug Dosing TNP Estimated GFR (MDRD) 37 L (>60) MLS/MIN BUN/Creatinine Ratio 28.2 H (6-25) Glucose 88 D (74-100) mg/dL Hemoglobin A1c 6.7 H (< 5.7) % Calcium 8.8 (8.5-10.1) mg/dL Meds: Medications Generic Name Dose Route Start Last Admin Trade Name Freq PRN Reason Stop Dose Admin Acetaminophen 650 mg 06/22/19 17:09 Tylenol PO Q4H PRN Pain (Mild 1-3)/fever Albuterol 2.5 mg 06/22/19 17:17 Proventil Neb Soln NEB Q6H PRN Shortness of Breath Albuterol 8 gm 06/22/19 17:17 Ventolin Hfa INH Q4H PRN Shortness of Breath Budesonide 0.5 mg 06/22/19 17:30 Pulmicort NEB BID [facility] Desvenlafaxine Succinate 50 mg 06/22/19 20:00 Pristiq PO QPM MATTHEW Digoxin 125 mcg 06/23/19 08:00 Lanoxin PO DAILY MATTHEW Diphenhydramine HCl 25 mg 06/22/19 20:00 Benadryl PO BID MATTHEW Furosemide 40 mg 06/23/19 08:00 Lasix PO DAILY [facility] Guaifenesin 600 mg 06/22/19 17:17 Mucinex PO BID PRN Congestion Hydroxyzine HCl 25 mg 06/22/19 17:17 Atarax PO TID PRN Anxiety Levofloxacin/Dextrose 750 mg/ 150 mls @ 100 mls/hr 06/22/19 17:15 06/22/19 17 :47 Premix IV 100 mls/hr Q24H MATTHEW Administration Gentamicin Sulfate 120 mg/ 103 mls @ 200 mls/hr 06/22/19 17:15 Sodium Chloride IV DAILY [facility] Insulin Aspart 0 unit 06/22/19 18:00 Novolog SUBCUT TIDMEALS [facility] Insulin Glargine 23 units 06/23/19 07:00 Lantus Solostar SUBCUT ACBREAKFAST [facility] Insulin Glargine 20 units 06/22/19 20:00 Lantus Solostar SUBCUT BEDTIME [facility] Metoprolol Tartrate 25 mg 06/22/19 20:00 Lopressor PO Q12HR MATTHEW Montelukast Sodium 10 mg 06/23/19 14:00 Singulair PO PCLUNCH [facility] Multivitamins/Minerals/Vitamin C 1 tab 06/23/19 12:00 Childrens Chewable Vitamin PO DAILY@1200 [facility] Non-Formulary Medication 2,000 unit 06/23/19 08:00 Cholecalciferol (Vitamin D3) [Vitamin D3] PO DAILY [facility] Non-Formulary Medication 240 mg 06/23/19 08:00 Diltiazem Hcl [Cartia Xt] PO DAILY MATTHEW Non-Formulary Medication 1 vial 06/22/19 20:00 Formoterol Fumarate [Perforomist] INH BID [facility] Non-Formulary Medication 5 mg 06/22/19 20:00 Melatonin [Melatonin] PO BEDTIME MATTHEW Non-Formulary Medication 1 puff 06/23/19 08:00 Umeclidinium Addison [Incruse Ellipta] IH DAILY [facility] Non-Formulary Medication 1 puff 06/23/19 08:00 Umeclidinium Addison [Incruse Ellipta] IH DAILY [facility] Non-Formulary Medication 8 mg 06/22/19 18:00 Warfarin Sodium [Coumadin] PO DAILY@1800 [facility] Nystatin ml 06/22/19 20:00 Mycostatin PO TID [facility] Omeprazole 20 mg 06/23/19 08:00 Omeprazole PO DAILY [facility] Ondansetron HCl 4 mg 06/22/19 17:09 Zofran IV Q4H PRN Nausea/Vomiting Oxycodone HCl 5 mg 06/22/19 17:09 06/22/19 17:51 Oxycodone PO 5 mg Q4H PRN Administration Pain (moderate 4-6) Prednisone 10 mg 06/23/19 08:00 Prednisone PO DAILY [facility] Quetiapine Fumarate 12.5 mg 06/23/19 08:00 Seroquel PO DAILY [facility] Quetiapine Fumarate 25 mg 06/22/19 20:00 Seroquel PO BEDTIME [facility] Roflumilast 500 mcg 06/23/19 08:00 Daliresp PO DAILY [facility] Sodium Chloride 10 ml 06/22/19 16:18 06/22/19 16:50 Saline Flush FLUSH 10 ml ASDIRECTED PRN Administration Keep Vein Open Tramadol HCl 50 mg 06/22/19 20:00 Ultram PO TID [facility] Discontinued Medications Generic Name Dose Route Start Last Admin Trade Name Freq PRN Reason Stop Dose Admin Levofloxacin/Dextrose Confirm 06/22/19 17:41 Levaquin In D5w 750 Mg/150 Ml Administered 06/22/19 17:42 Dose 150 mls @ as directed IV .STK-MED ONE Oxycodone HCl Confirm 06/22/19 17:59 Oxycodone Administered 06/22/19 18:00 Dose 5 mg .ROUTE .STK-MED ONE - Re-Assessments/Exams Free Text/Narrative Re-Assessment/Exam: 06/22/19 18:15 This patient presents to the ED for evaluation of respiratory distress. History and clinical findings are most consistent with a pneumonia. She has a significant elevation in her white count and an increase in her oxygen need and for this reason, she will be admitted to the inpatient unit for IV antibiotics and continued care. She was given an IV fluid bolus in the ED and antibiotics were started. Arrangements were made for her transfer to the inpatient unit. 06/22/19 18:18 Departure - Departure Time of Disposition: 18:00 Disposition: Admitted As Inpatient 67 Condition: Fair Clinical Impression: Pneumonia, Hypoxia - Discharge Information *PRESCRIPTION DRUG MONITORING PROGRAM REVIEWED*: No Forms: ED Department Discharge - My Orders Last 24 Hours: My Active Orders 06/22/19 16:18 Sodium Chloride 0.9% [Saline Flush] 10 ml FLUSH ASDIRECTED PRN Saline Lock Insert [OM.PC] Stat 06/22/19 17:09 Patient Status [ADT] Routine Blood Glucose Check, Bedside [RC] QIDACANDBED Oxygen Therapy [RC] PRN Up With Assistance [RC] ASDIRECTED VTE/DVT Education [RC] Per Unit Routine Vital Signs [RC] Q4H OT Evaluation and Treatment [CONS] Routine PT Evaluation and Treatment [CONS] Routine Acetaminophen [Tylenol] 650 mg PO Q4H PRN Ondansetron [Zofran] 4 mg IV Q4H PRN oxyCODONE 5 mg PO Q4H PRN Resuscitation Status Routine 06/22/19 17:15 Gentamicin 120 mg Sodium Chloride 0.9% [Normal Saline] 100 ml IV DAILY Levofloxacin/Dextrose 5%-Water [Levaquin in D5W 750 MG/150 ML] 750 mg Premix Bag 1 bag IV Q24H 06/22/19 17:17 Albuterol [Proventil Neb Soln] 2.5 mg NEB Q6H PRN Albuterol [Ventolin HFA] 8 gm INH Q4H PRN guaiFENesin [Mucinex] 600 mg PO BID PRN hydrOXYzine HCl [Atarax] 25 mg PO TID PRN 06/22/19 17:30 Budesonide [Pulmicort] 0.5 mg NEB BID 06/22/19 18:00 Insulin Aspart [NovoLOG] See Dose Instructions SUBCUT TIDMEALS Warfarin Sodium [Coumadin] 8 mg PO DAILY@1800 06/22/19 20:00 Desvenlafaxine [Pristiq] 50 mg PO QPM Formoterol Fumarate [Perforomist] 1 vial INH BID Insulin Glarg,Human.Rec.Analog [LantUS Solostar] 20 units SUBCUT BEDTIME Melatonin [Melatonin] 5 mg PO BEDTIME Metoprolol Tartrate [Lopressor] 25 mg PO Q12HR Nystatin [Mycostatin] 1 dose PO TID QUEtiapine [SEROqueL] 25 mg PO BEDTIME diphenhydrAMINE [Benadryl] 25 mg PO BID traMADol [Ultram] 50 mg PO TID 06/22/19 Dinner Regular Diet [DIET] 06/23/19 07:00 BASIC METABOLIC PANEL,BMP [CHEM] DAILY CBC WITH AUTO DIFF [HEME] DAILY Insulin Glarg,Human.Rec.Analog [LantUS Solostar] 23 units SUBCUT ACBREAKFAST 06/23/19 08:00 Cholecalciferol (Vitamin D3) [Vitamin D3] 2,000 unit PO DAILY Digoxin [Lanoxin] 125 mcg PO DAILY Diltiazem HCl [Cartia Xt] 240 mg PO DAILY Furosemide [Lasix] 40 mg PO DAILY Omeprazole 20 mg PO DAILY QUEtiapine [SEROqueL] 12.5 mg PO DAILY Roflumilast [Daliresp] 500 mcg PO DAILY Umeclidinium Addison [Incruse Ellipta] 1 puff IH DAILY Umeclidinium Addison [Incruse Ellipta] 1 puff IH DAILY predniSONE 10 mg PO DAILY 06/23/19 12:00 Multivitamins [Childrens Chewable Vitamin] 1 tab PO DAILY@1200 06/23/19 14:00 Montelukast [Singulair] 10 mg PO PCLUNCH - Assessment/Plan Last 24 Hours: My Active Orders 06/22/19 16:18 Sodium Chloride 0.9% [Saline Flush] 10 ml FLUSH ASDIRECTED PRN Saline Lock Insert [OM.PC] Stat 06/22/19 17:09 Patient Status [ADT] Routine Blood Glucose Check, Bedside [RC] QIDACANDBED Oxygen Therapy [RC] PRN Up With Assistance [RC] ASDIRECTED VTE/DVT Education [RC] Per Unit Routine Vital Signs [RC] Q4H OT Evaluation and Treatment [CONS] Routine PT Evaluation and Treatment [CONS] Routine Acetaminophen [Tylenol] 650 mg PO Q4H PRN Ondansetron [Zofran] 4 mg IV Q4H PRN oxyCODONE 5 mg PO Q4H PRN Resuscitation Status Routine 06/22/19 17:15 Gentamicin 120 mg Sodium Chloride 0.9% [Normal Saline] 100 ml IV DAILY Levofloxacin/Dextrose 5%-Water [Levaquin in D5W 750 MG/150 ML] 750 mg Premix Bag 1 bag IV Q24H 06/22/19 17:17 Albuterol [Proventil Neb Soln] 2.5 mg NEB Q6H PRN Albuterol [Ventolin HFA] 8 gm INH Q4H PRN guaiFENesin [Mucinex] 600 mg PO BID PRN hydrOXYzine HCl [Atarax] 25 mg PO TID PRN 06/22/19 17:30 Budesonide [Pulmicort] 0.5 mg NEB BID 06/22/19 18:00 Insulin Aspart [NovoLOG] See Dose Instructions SUBCUT TIDMEALS Warfarin Sodium [Coumadin] 8 mg PO DAILY@1800 06/22/19 20:00 Desvenlafaxine [Pristiq] 50 mg PO QPM Formoterol Fumarate [Perforomist] 1 vial INH BID Insulin Glarg,Human.Rec.Analog [LantUS Solostar] 20 units SUBCUT BEDTIME Melatonin [Melatonin] 5 mg PO BEDTIME Metoprolol Tartrate [Lopressor] 25 mg PO Q12HR Nystatin [Mycostatin] 1 dose PO TID QUEtiapine [SEROqueL] 25 mg PO BEDTIME diphenhydrAMINE [Benadryl] 25 mg PO BID traMADol [Ultram] 50 mg PO TID 06/22/19 Dinner Regular Diet [DIET] 06/23/19 07:00 BASIC METABOLIC PANEL,BMP [CHEM] DAILY CBC WITH AUTO DIFF [HEME] DAILY Insulin Glarg,Human.Rec.Analog [LantUS Solostar] 23 units SUBCUT ACBREAKFAST 06/23/19 08:00 Cholecalciferol (Vitamin D3) [Vitamin D3] 2,000 unit PO DAILY Digoxin [Lanoxin] 125 mcg PO DAILY Diltiazem HCl [Cartia Xt] 240 mg PO DAILY Furosemide [Lasix] 40 mg PO DAILY Omeprazole 20 mg PO DAILY QUEtiapine [SEROqueL] 12.5 mg PO DAILY Roflumilast [Daliresp] 500 mcg PO DAILY Umeclidinium Addison [Incruse Ellipta] 1 puff IH DAILY Umeclidinium Addison [Incruse Ellipta] 1 puff IH DAILY predniSONE 10 mg PO DAILY 06/23/19 12:00 Multivitamins [Childrens Chewable Vitamin] 1 tab PO DAILY@1200 06/23/19 14:00 Montelukast [Singulair] 10 mg PO PCLUNCH
[2019-06-22 16:52] LABS: HEMOGLOBIN A1C 6.7 % (< 5.7)
[2019-06-22] MEDS: Budesonide 0.5 MG/2 ML Neb Susp NEB SCH ×2 (16:55→21:56)
[2019-06-22] MEDS ORDERED: Acetaminophen 325 MG Tab PO PRN (17:09)
[2019-06-22] MEDS ORDERED: Ondansetron 4 MG/2 ML SDV IV PRN (17:09)
[2019-06-22] MEDS ORDERED: Albuterol 8 GM Inhaler INH PRN ×2 (17:17→23:10)
[2019-06-22] MEDS ORDERED: hydrOXYzine HCl 25 MG Tab PO PRN (17:17)
[2019-06-22] MEDS ORDERED: guaiFENesin 600 MG Tab.ER PO PRN (17:17)
--- NOTE | 2019-06-22 17:19 | CR ---
Juvenal of Service: 06/22/19 Clinical Data: cough, hypoxia PORTABLE CHEST: Comparison is made to a prior exam dated 05/23/19. The tracheostomy tube remains unchanged in position. The heart size is stable. The pulmonary vasculature does appear more prominent than on the prior exam suggesting pulmonary venous congestion. There is increased density in the right lung base on today's exam consistent with basilar atelectasis or infiltrate. Pneumonia should be considered. The exam is otherwise unchanged. [id number] [facility]
[2019-06-22] MEDS ORDERED: Levofloxacin/Dextrose 5%-Water 150 ML IV ONE (17:41)
[2019-06-22] MEDS: Levofloxacin/Dextrose 5%-Water 750 MG in Premix Bag 1 BAG IV SCH (17:47)
[2019-06-22] MEDS: oxyCODONE 5 MG Tab PO PRN (17:51)
[2019-06-22] MEDS ORDERED: oxyCODONE 5 MG Tab ONE (17:59)
[2019-06-22] MEDS ORDERED: WARFARIN SODIUM 8 MG PO SCH (18:00)
[2019-06-22] MEDS: Insulin Aspart 100 Units/ML 3 ML Pen SUBCUT SCH (18:30)
[2019-06-22] MEDS ORDERED: FORMOTEROL FUMARATE INH SCH (20:00)
[2019-06-22] MEDS ORDERED: Non-Formulary Medication 1 Each (Melatonin [Melatonin] 5 MG) PO SCH (20:00)
[2019-06-22] MEDS ORDERED: Sodium Chloride 0.9% 1,000 ML IV SCH (20:00)
[2019-06-22] MEDS ORDERED: Melatonin 10 MG Cap ONE (21:48)
[2019-06-22] MEDS: diphenhydrAMINE 25 MG Cap PO SCH (21:51)
[2019-06-22] MEDS: Metoprolol Tartrate 25 MG Tab PO SCH (21:51)
[2019-06-22] MEDS: QUEtiapine 25 MG Tab PO SCH (21:52)
[2019-06-22] MEDS: traMADol 50 MG Tab PO SCH (21:53)
[2019-06-22] MEDS: Desvenlafaxine 50 MG Tab.ER PO SCH (21:54)
[2019-06-22] MEDS: Melatonin 10 MG Cap PO SCH (21:57)
[2019-06-22] MEDS: Insulin Glargine,Human Rec. Analog 100 Units/ML 3 ML Pen SUBCUT SCH (21:59)
[2019-06-23] MEDS: Nystatin Susp 100,000 Unit/ML 5 ML UD Cup PO SCH ×4 (01:58→19:39)
[2019-06-23] MEDS ORDERED: Non-Formulary Medication 1 Each (Umeclidinium Bromide [Incruse Ellipta] 1 PUFF) IH SCH ×2 (08:00)
[2019-06-23] MEDS ORDERED: Cholecalciferol (Vitamin D3) 2,000 Unit Cap PO SCH (08:00)
[2019-06-23] MEDS: Omeprazole 20 MG Cap.CR PO SCH (08:22)
[2019-06-23] MEDS: Insulin Aspart 100 Units/ML 3 ML Pen SUBCUT SCH ×3 (08:24→18:24)
[2019-06-23] MEDS: diphenhydrAMINE 25 MG Cap PO SCH ×2 (08:29→19:27)
[2019-06-23] MEDS: Roflumilast 500 MCG Tab PO SCH (08:30)
[2019-06-23] MEDS: Furosemide 40 MG Tab PO SCH (08:31)
[2019-06-23] MEDS: Digoxin 125 MCG Tab PO SCH (08:31)
[2019-06-23] MEDS: Metoprolol Tartrate 25 MG Tab PO SCH ×2 (08:32→19:27)
[2019-06-23] MEDS: QUEtiapine 25 MG Tab PO SCH ×2 (08:33→19:27)
[2019-06-23] MEDS: predniSONE 10 MG Tab PO SCH (08:33)
[2019-06-23] MEDS: traMADol 50 MG Tab PO SCH ×3 (08:35→19:21)
[2019-06-23] MEDS: Diltiazem 240 MG Cap.ER PO SCH (08:48)
[2019-06-23] MEDS: Insulin Glargine,Human Rec. Analog 100 Units/ML 3 ML Pen SUBCUT SCH (09:00)
[2019-06-23] MEDS: Budesonide 0.5 MG/2 ML Neb Susp NEB SCH ×2 (10:53→19:28)
--- NOTE | 2019-06-23 11:05 | PCM.HP.2 ---
H&P History of Present Illness - General Date of Service: 06/22/19 Admit Problem/Dx: Admission Diagnosis/Problem Admission Diagnosis/Problem Pneumonia Difficulty Breathing Source of Information: Patient, Family History Limitations: Reports: No Limitations - History of Present Illness Initial Comments - Free Text/Narative: This patient is received from the emergency department for management of pneumonia. She has been ill for the past several days at home with increased cough, respiratory secretions, and intermittent fevers. She also has not been eating or drinking well at home and feels as though she might be dehydrated. She has not had any vomiting or diarrhea and denies other concerns. Symptom Onset Date: 06/18/19 Duration of Symptoms: Reports: Getting Worse Location: Reports: Chest, Other (left chest pain, increased with cough) Severity: Moderate Improves with: Reports: None Associated Symptoms: Reports: Chest Pain, Cough, Fever/Chills, Headaches, Loss of Appetite, Shortness of Breath. Denies: Nausea/Vomiting, Rash, Syncope, Weakness Generalized Pain Score (Numeric/FACES): 7 - Related Data Allergies/Adverse Reactions: Allergies Allergy/AdvReac Type Severity Reaction Status Date / Time Penicillins Allergy Unknown Edema Verified 06/22/19 16:09 shellfish derived Allergy Unknown Anaphylactic Verified 06/22/19 16:09 Shock Sulfa (Sulfonamide Allergy Unknown Edema Verified 06/22/19 16:09 Antibiotics) clonidine AdvReac Intermediate Lethargy Verified 06/22/19 16:09 klonopin AdvReac Lethargy Uncoded 10/30/18 03:45 Home Medications: Home Meds guaiFENesin [Mucinex] 600 mg PO BID PRN 10/02/14 [History] Omeprazole 20 mg PO DAILY 11/04/14 [History] Desvenlafaxine [Pristiq] 50 mg PO QPM 01/03/16 [History] traMADol [Ultram] 50 mg PO TID 01/03/16 [History] Melatonin 5 mg PO BEDTIME 06/22/16 [History] Multivitamins [Childrens Chewable Vitamin] 1 tab PO DAILY@1200 06/22/16 [History ] Umeclidinium [place] [Incruse Ellipta] 1 puff IH DAILY 09/27/16 [History] Digoxin [Lanoxin] 125 mcg PO DAILY tablet 04/01/17 [Rx] Insulin Aspart [NovoLOG] 0 unit SUBCUT TIDMEALS pen 04/01/17 [Rx] Albuterol Sulfate 2.5 mg IH QID 09/27/17 [History] Formoterol Fumarate [Perforomist] 1 vial INH BID 09/27/17 [History] Furosemide 40 mg PO DAILY 09/27/17 [History] Montelukast Sodium 10 mg PO PCLUNCH 09/27/17 [History] Roflumilast [Daliresp] 500 mcg PO DAILY 09/27/17 [History] Metoprolol Tartrate [Lopressor] 25 mg PO Q12HR 30 Days #60 tab 09/29/17 [Rx] QUEtiapine [SEROquel] 25 mg PO BEDTIME 06/05/18 [History] Cholecalciferol (Vitamin D3) [Vitamin D3] 2,000 unit PO DAILY 02/16/19 [History] Insulin Glargine,Hum.Rec.Anlog [Basaglar Kwikpen U-100] 20 units SQ BEDTIME [History] Insulin Glargine,Hum.Rec.Anlog [Basaglar Kwikpen U-100] 23 units SQ ACBREAKFAST 02/16/19 [History] Nystatin 1 dose PO TID 02/16/19 [History] diphenhydrAMINE HCl [Banophen] 25 mg PO BID 02/16/19 [History] predniSONE [Prednisone] 10 mg PO DAILY #28 tablet 02/16/19 [Rx] Diltiazem HCl [Cartia Xt] 240 mg PO DAILY 03/05/19 [History] QUEtiapine [SEROquel] 12.5 mg PO DAILY 03/05/19 [History] hydrOXYzine HCl [hydrOXYzine] 25 mg PO TID PRN 03/05/19 [History] Albuterol [Proventil Neb Soln] 2.5 mg NEB Q6H PRN neb 03/06/19 [Rx] Albuterol [Ventolin HFA] 8 gm INH Q4H PRN inhaler 03/06/19 [Rx] Budesonide [Pulmicort] 0.5 mg NEB BID neb 03/06/19 [Rx] Clindamycin HCl 300 mg PO QID #40 capsule 03/06/19 [Rx] Umeclidinium [place] [Incruse Ellipta] 1 puff IH DAILY 03/06/19 [Rx] Warfarin Sodium [Coumadin] 8 mg PO DAILY@1800 03/06/19 [Rx] Past Medical History HEENT History: Reports: Allergic Rhinitis, Hard of Hearing, Impaired Vision, Other (See Below) Other HEENT History: trach placed x 2 years ago Cardiovascular History: Reports: Heart Failure, Hypertension, Other (See Below) Other Cardiovascular History: a flutter Respiratory History: Reports: SOB Other Respiratory History: SOB excessive plegm Gastrointestinal History: Reports: Chronic Constipation, GERD Genitourinary History: Reports: Chronic Renal Insuffiency, UTI, Recurrent Other Genitourinary History: no uti recently [employer] History: Reports: Other OB/BYN History: hysterectomy Musculoskeletal History: Reports: Arthritis, Back Pain, Chronic, Neck Pain, Chronic Neurological History: Reports: Migraines Psychiatric History: Reports: Anxiety, Depression Endocrine/Metabolic History: Reports: Diabetes, Type II Hematologic History: Reports: Anemia Oncologic (Cancer) History: Reports: Lung Dermatologic History: Reports: Other (See Below) Other Dermatologic History: bruises easily - Infectious Disease History Infectious Disease History: Reports: Chicken Pox, 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, Other - Past Surgical History HEENT Surgical History: Reports: Other (See Below) GI Surgical History: Reports: Hernia, Abdominal Oncologic Surgical History: Reports: Other (See Below) Other Oncologic Surgeries/Procedures: hx biopsy of lung for cancer diagnosis Social & Family History - Family History Family Medical History: Noncontributory Cardiac: Reports: Hypertension Respiratory: Reports: Asthma, COPD Psychiatric: Reports: Anxiety - Tobacco Use Smoking Status *Q: Current Every Day Smoker Years of Tobacco use: 40 Packs/Tins Daily: 0.5 Used Tobacco, but Quit: No Second Hand Smoke Exposure: Yes - Caffeine Use Caffeine Use: Reports: None - Recreational Drug Use Recreational Drug Use: No - Living Situation & Occupation Living situation: Reports: Single, with Significant Other Occupation: Disabled H&P Review of Systems - Review of Systems: Review Of Systems: See Below General: Reports: Fever, Chills, Decreased Appetite. Denies: Weakness, Fatigue HEENT: Reports: Headaches, Rhinitis. Denies: Ear Pain, Sore Throat Pulmonary: Reports: Shortness of Breath, Wheezing, Cough, Sputum Cardiovascular: Reports: Chest Pain, Dyspnea on Exertion, Orthopnea, Lightheadedness. Denies: Palpitations Gastrointestinal: Reports: Decreased Appetite. Denies: Nausea, Vomiting Skin: Reports: No Symptoms Neurological: Reports: No Symptoms Exam - Exam Exam: See Below - Vital Signs Vital Signs: Last Vital Signs Temp 36.6 C 06/23/19 06:00 Pulse 102 H 06/23/19 08:32 Resp 22 H 06/23/19 06:00 BP 131/76 06/23/19 08:32 Pulse Ox 92 L 06/23/19 06:00 Weight: 71.384 kg - Exam Quality Assessment: Supplemental Oxygen, Other General: Alert, Oriented HEENT: PERRLA, Conjunctiva Clear, Hearing Intact, Mucosa Moist & Carlos, Nares Patent, Posterior Pharynx Clear, Pupils Equal, Pupils Reactive, TMs Clear Neck: Supple Lungs: Decreased Breath Sounds, Crackles, Rales, Wheezing, Other (tachypneic, scattered inspiratory and expiratory wheezes. Breath sounds diminished in bases with coarse crackles on left.) Back Exam: Normal Inspection Extremities: Normal Inspection Skin: Warm, Dry, Intact Neurological: Cranial Nerves Intact Neuro Extensive - Mental Status: Alert, Oriented x3 Psychiatric: Alert, Normal Affect - Patient Data Lab Results Last 24 hrs: Laboratory Results - last 24 hr 06/22/19 06/22/19 06/22/19 Range/Units 16:30 16:30 16:30 WBC 28.2 H* D (4.0-11.0) K/uL RBC 4.72 (3.80-5.80) M/uL Hgb 13.0 (11.5-16.5) g/dL Hct 41.1 (37.0-47.0) % MCV 87 (76-96) fL MCH 27.5 (27.0-32.0) pg MCHC 31.6 (31.0-35.0) g/dL RDW 15.1 (11.0-16.0) % Plt Count 266 (150-500) K/uL MPV 10.1 H (6.0-10.0) fL Neut % (Auto) 89.3 H (45.0-70.0) % Lymph % (Auto) 2.3 L (20.0-40.0) % [place] % (Auto) 8.2 (3.0-10.0) % Eos % (Auto) 0.0 L (1.0-5.0) % Baso % (Auto) 0.2 (0.0-0.5) % Neut # (Auto) 25.20 H (2.00-7.50) K/uL Lymph # (Auto) 0.64 L (1.50-4.00) K/uL [place] # (Auto) 2.30 H (0.20-0.80) K/uL Eos # (Auto) 0.01 L (0.04-0.40) K/uL Baso # (Auto) 0.07 (0.02-0.10) K/uL PT (9.0-11.5) sec INR (1.0-3.5) Sodium 137 (136-145) mmol/L Potassium 4.2 (3.5-5.1) mmol/L Chloride 91 L (98-107) mmol/L Carbon Dioxide 38.2 H (21.0-32.0) mmol/L Anion Gap 12.0 (5.0-15.0) mmol/L BUN 40 H D (8-26) mg/dL Creatinine 1.42 H (0.55-1.02) mg/dL Est Cr Clr Drug Dosing TNP Estimated GFR (MDRD) 37 L (>60) MLS/MIN BUN/Creatinine Ratio 28.2 H (6-25) Glucose 88 D (74-100) mg/dL POC Glucose (74-110) mg/dL Hemoglobin A1c 6.7 H (< 5.7) % Calcium 8.8 (8.5-10.1) mg/dL 06/22/19 06/23/19 06/23/19 Range/Units 19:41 07:11 09:30 WBC 20.4 H* D (4.0-11.0) K/uL RBC 4.05 (3.80-5.80) M/uL Hgb 11.2 L (11.5-16.5) g/dL Hct 36.7 L (37.0-47.0) % MCV 91 (76-96) fL MCH 27.7 (27.0-32.0) pg MCHC 30.5 L (31.0-35.0) g/dL RDW 15.1 (11.0-16.0) % Plt Count 245 (150-500) K/uL MPV 9.9 (6.0-10.0) fL Neut % (Auto) 87.8 H (45.0-70.0) % Lymph % (Auto) 2.7 L (20.0-40.0) % [place] % (Auto) 9.3 (3.0-10.0) % Eos % (Auto) 0.0 L (1.0-5.0) % Baso % (Auto) 0.2 (0.0-0.5) % Neut # (Auto) 17.89 H (2.00-7.50) K/uL Lymph # (Auto) 0.56 L (1.50-4.00) K/uL [place] # (Auto) 1.90 H (0.20-0.80) K/uL Eos # (Auto) 0.01 L (0.04-0.40) K/uL Baso # (Auto) 0.04 (0.02-0.10) K/uL PT (9.0-11.5) sec INR (1.0-3.5) Sodium (136-145) mmol/L Potassium (3.5-5.1) mmol/L Chloride (98-107) mmol/L Carbon Dioxide (21.0-32.0) mmol/L Anion Gap (5.0-15.0) mmol/L BUN (8-26) mg/dL Creatinine (0.55-1.02) mg/dL Est Cr Clr Drug Dosing Estimated GFR (MDRD) (>60) MLS/MIN BUN/Creatinine Ratio (6-25) Glucose (74-100) mg/dL POC Glucose 171 H 114 H (74-110) mg/dL Hemoglobin A1c (< 5.7) % Calcium (8.5-10.1) mg/dL 06/23/19 06/23/19 Range/Units 09:30 09:30 WBC (4.0-11.0) K/uL RBC (3.80-5.80) M/uL Hgb (11.5-16.5) g/dL Hct (37.0-47.0) % MCV (76-96) fL MCH (27.0-32.0) pg MCHC (31.0-35.0) g/dL RDW (11.0-16.0) % Plt Count (150-500) K/uL MPV (6.0-10.0) fL Neut % (Auto) (45.0-70.0) % Lymph % (Auto) (20.0-40.0) % [place] % (Auto) (3.0-10.0) % Eos % (Auto) (1.0-5.0) % Baso % (Auto) (0.0-0.5) % Neut # (Auto) (2.00-7.50) K/uL Lymph # (Auto) (1.50-4.00) K/uL [place] # (Auto) (0.20-0.80) K/uL Eos # (Auto) (0.04-0.40) K/uL Baso # (Auto) (0.02-0.10) K/uL PT 22.0 H (9.0-11.5) sec INR 2.4 (1.0-3.5) Sodium 135 L (136-145) mmol/L Potassium 4.0 (3.5-5.1) mmol/L Chloride 94 L (98-107) mmol/L Carbon Dioxide 38.6 H (21.0-32.0) mmol/L Anion Gap 6.4 (5.0-15.0) mmol/L BUN 53 H* D (8-26) mg/dL Creatinine 2.15 H D (0.55-1.02) mg/dL Est Cr Clr Drug Dosing 22.44 Estimated GFR (MDRD) 23 L (>60) MLS/MIN BUN/Creatinine Ratio 24.7 (6-25) Glucose 149 H D (74-100) mg/dL POC Glucose (74-110) mg/dL Hemoglobin A1c (< 5.7) % Calcium 8.3 L (8.5-10.1) mg/dL Result Diagrams: 06/23/19 09:30 06/23/19 09:30 *Q Meaningful Use (ADM) - VTE *Q VTE Mechanical Contraindications *Q: At Risk for Falls - VTE Risk Assess *Q Each Risk Factor Represents 1 Point: Obesity ( BMI > 25 kg/m2), Serious lung disease including pneumonia, Abnormal Pulmonary Function (COPD) Total Score 1 Point Risk Factors: 3 Each Risk Factor Represents 2 Points: Age 60 - 74 Years Total Score 2 Point Risk Factors: 2 - Problem List (1) Pneumonia SNOMED Code(s): 132648614 ICD Code: J18.9 - PNEUMONIA, UNSPECIFIED ORGANISM Status: Acute Current Visit: Yes Qualifiers: Pneumonia type: due to unspecified organism Laterality: left Lung location: unspecified part of lung Qualified Code(s): J18.9 - Pneumonia, unspecified organism Problem List Initiated/Reviewed/Updated: Yes Orders Last 24hrs: Active Orders 24 hr Category Date Time Status Patient Status [ADT] Routine ADT 06/22/19 17:09 Active Blood Glucose Check, Bedside [RC] QIDACANDBED Care 06/22/19 17:09 Active Daily Weight [Height and Weight] [RC] DAILY Care 06/23/19 09:35 Active Oxygen Therapy [RC] PRN Care 06/22/19 17:09 Active Up With Assistance [RC] ASDIRECTED Care 06/22/19 17:09 Active VTE/DVT Education [RC] Per Unit Routine Care 06/22/19 17:09 Active Vital Signs [RC] Q4H Care 06/22/19 17:09 Active OT Evaluation and Treatment [CONS] Routine Cons 06/22/19 17:09 Active PT Evaluation and Treatment [CONS] Routine Cons 06/22/19 17:09 Active Regular Diet [DIET] Diet 06/22/19 Dinner Ordered CULTURE MRSA SURVEY [RM] Routine Lab 06/23/19 08:56 Received Acetaminophen [Tylenol] Med 06/22/19 17:09 Active 650 mg PO Q4H PRN Albuterol [Proventil Neb Soln] Med 06/22/19 17:17 Active 2.5 mg NEB Q6H PRN Budesonide [Pulmicort] Med 06/22/19 17:30 Active 0.5 mg NEB BID Cholecalciferol (Vitamin D3) [Vitamin D3] Med 06/23/19 08:00 Active 2,000 unit PO DAILY Desvenlafaxine [Pristiq] Med 06/22/19 20:00 Active 50 mg PO QPM Digoxin [Lanoxin] Med 06/23/19 08:00 Active 125 mcg PO DAILY Diltiazem [Dilacor XR] Med 06/23/19 08:00 Active 240 mg PO DAILY Furosemide [Lasix] Med 06/23/19 08:00 Active 40 mg PO DAILY Gentamicin 120 mg Med 06/22/19 17:15 Active Sodium Chloride 0.9% [Normal Saline] 100 ml IV DAILY Insulin Aspart [NovoLOG] Med 06/22/19 18:00 Active See Dose Instructions SUBCUT TIDMEALS Insulin Glarg,Human.Rec.Analog [LantUS Solostar] Med 06/22/19 20:00 Active 20 units SUBCUT BEDTIME Insulin Glarg,Human.Rec.Analog [LantUS Solostar] Med 06/23/19 07:00 Active 23 units SUBCUT ACBREAKFAST Levofloxacin/Dextrose 5%-Water [Levaquin in D5W 750 MG/ Med 06/22/19 17:15 Active 150 ML] 750 mg Premix Bag 1 bag IV Q24H Melatonin Med 06/22/19 22:00 Active 10 mg PO BEDTIME Metoprolol Tartrate [Lopressor] Med 06/22/19 20:00 Active 25 mg PO Q12HR Montelukast [Singulair] Med 06/23/19 14:00 Active 10 mg PO PCLUNCH Multivitamins [Childrens Chewable Vitamin] Med 06/23/19 12:00 Active 1 tab PO DAILY@1200 Nystatin [Mycostatin] Med 06/22/19 23:15 Active 5 ml PO TID Omeprazole Med 06/23/19 07:00 Active 20 mg PO ACBREAKFAST Ondansetron [Zofran] Med 06/22/19 17:09 Active 4 mg IV Q4H PRN QUEtiapine [SEROqueL] Med 06/23/19 08:00 Active 12.5 mg PO DAILY QUEtiapine [SEROqueL] Med 06/22/19 20:00 Active 25 mg PO BEDTIME Roflumilast [Daliresp] Med 06/23/19 08:00 Active 500 mcg PO DAILY Sodium Chloride 0.9% [Normal Saline] 1,000 ml Med 06/22/19 20:00 Active IV ASDIRECTED Sodium Chloride 0.9% [Saline Flush] Med 06/22/19 16:18 Active 10 ml FLUSH ASDIRECTED PRN Warfarin [Coumadin] Med 06/22/19 18:38 Active 8 mg PO DAILY@1800 diphenhydrAMINE [Benadryl] Med 06/22/19 20:00 Active 25 mg PO BID guaiFENesin [Mucinex] Med 06/22/19 17:17 Active 600 mg PO BID PRN hydrOXYzine HCl [Atarax] Med 06/22/19 17:17 Active 25 mg PO TID PRN oxyCODONE Med 06/22/19 17:09 Active 5 mg PO Q4H PRN predniSONE Med 06/23/19 08:00 Active 10 mg PO DAILY traMADol [Ultram] Med 06/22/19 20:00 Active 50 mg PO TID Saline Lock Insert [OM.PC] Stat Oth 06/22/19 16:18 Ordered Resuscitation Status Routine Resus Stat 06/22/19 17:09 Ordered Medication Orders Acetaminophen (Tylenol) 650 mg PO Q4H PRN PRN Reason: Pain (Mild 1-3)/fever Albuterol (Proventil Neb Soln) 2.5 mg NEB Q6H PRN PRN Reason: Shortness of Breath Budesonide (Pulmicort) 0.5 mg NEB BID [facility] Last Admin: 06/23/19 10:53 Dose: 0.5 mg Admin: 06/22/19 21:56 Dose: 0.5 mg Admin: 06/22/19 16:55 Dose: 0.5 mg Cholecalciferol (Vitamin D3) 2,000 unit PO DAILY [facility] Desvenlafaxine Succinate (Pristiq) 50 mg PO QPM [facility] Last Admin: 06/22/19 21:54 Dose: 50 mg Digoxin (Lanoxin) 125 mcg PO DAILY [facility] Last Admin: 06/23/19 08:31 Dose: 125 mcg Diltiazem HCl (Dilacor Xr) 240 mg PO DAILY [facility] Last Admin: 06/23/19 08:48 Dose: 240 mg Diphenhydramine HCl (Benadryl) 25 mg PO BID [facility] Last Admin: 06/23/19 08:29 Dose: 25 mg Admin: 06/22/19 21:51 Dose: 25 mg Furosemide (Lasix) 40 mg PO DAILY [facility] Last Admin: 06/23/19 08:31 Dose: 40 mg Guaifenesin (Mucinex) 600 mg PO BID PRN PRN Reason: Congestion Hydroxyzine HCl (Atarax) 25 mg PO TID PRN PRN Reason: Anxiety Levofloxacin/Dextrose 750 mg/ (Premix) 150 mls @ 100 mls/hr IV Q24H [facility] Last Admin: 06/22/19 17:47 Dose: 100 mls/hr Gentamicin Sulfate 120 mg/ (Sodium Chloride) 103 mls @ 200 mls/hr IV DAILY [facility] Last Admin: 06/23/19 10:57 Dose: 200 mls/hr Admin: 06/22/19 19:55 Dose: 200 mls/hr Sodium Chloride (Normal Saline) 1,000 mls @ 100 mls/hr IV ASDIRECTED [facility] Last Admin: 06/22/19 21:00 Dose: 100 mls/hr Insulin Aspart (Novolog) 0 unit SUBCUT TIDMEALS [facility] Last Admin: 06/23/19 08:24 Dose: Admin: 06/22/19 18:30 Dose: Not Given Insulin Glargine (Lantus Solostar) 23 units SUBCUT ACBREAKFAST [facility] Last Admin: 06/23/19 09:00 Dose: Insulin Glargine (Lantus Solostar) 20 units SUBCUT BEDTIME [facility] Last Admin: 06/22/19 21:59 Dose: 18 units Melatonin (Melatonin) 10 mg PO BEDTIME [facility] Last Admin: 06/22/19 21:57 Dose: 10 mg Metoprolol Tartrate (Lopressor) 25 mg PO Q12HR [facility] Last Admin: 06/23/19 08:32 Dose: 25 mg Admin: 06/22/19 21:51 Dose: 25 mg Montelukast Sodium (Singulair) 10 mg PO PCLUNCH [facility] Multivitamins/Minerals/Vitamin C (Childrens Chewable Vitamin) 1 tab PO DAILY@ 1200 MATTHEW Nystatin (Mycostatin) 5 ml PO TID [facility] Last Admin: 06/23/19 08:32 Dose: 5 ml Admin: 06/23/19 01:58 Dose: Not Given Omeprazole (Omeprazole) 20 mg PO ACBREAKFAST [facility] Last Admin: 06/23/19 08:22 Dose: 20 mg Ondansetron HCl (Zofran) 4 mg IV Q4H PRN PRN Reason: Nausea/Vomiting Oxycodone HCl (Oxycodone) 5 mg PO Q4H PRN PRN Reason: Pain (moderate 4-6) Last Admin: 06/22/19 17:51 Dose: 5 mg Prednisone (Prednisone) 10 mg PO DAILY [facility] Last Admin: 06/23/19 08:33 Dose: 10 mg Quetiapine Fumarate (Seroquel) 12.5 mg PO DAILY [facility] Last Admin: 06/23/19 08:33 Dose: 12.5 mg Quetiapine Fumarate (Seroquel) 25 mg PO BEDTIME [facility] Last Admin: 06/22/19 21:52 Dose: 25 mg Roflumilast (Daliresp) 500 mcg PO DAILY [facility] Last Admin: 06/23/19 08:30 Dose: 500 mcg Sodium Chloride (Saline Flush) 10 ml FLUSH ASDIRECTED PRN PRN Reason: Keep Vein Open Last Admin: 06/22/19 16:50 Dose: 10 ml Tramadol HCl (Ultram) 50 mg PO TID [facility] Last Admin: 06/23/19 08:35 Dose: 50 mg Admin: 06/22/19 21:53 Dose: 50 mg Warfarin Sodium (Coumadin) 8 mg PO DAILY@1800 [facility] Assessment/Plan Comment:: 1) IV antibiotics and fluids as needed. 2) Oxygen per saturation 3) Respiratory treatments per home routine and increased as needed. 4) Functional assessment: PT and OT 5) Smoking cessation encouraged
--- NOTE | 2019-06-23 11:20 | PCM.PN ---
- General Info Date of Service: 06/23/19 Admission Dx/Problem (Free Text): Admission Diagnosis/Problem Admission Diagnosis/Problem Pneumonia Difficulty Breathing Subjective Update: States she does not feel any better this morning. Continues to require 2.5L oxygen to maintain saturation > 92%. Appetite decreased but has been drinking fluids some. Out of bed this morning to tub. Functional Status: Reports: Pain Controlled - Review of Systems General: Denies: Fever, Appetite HEENT: Reports: No Symptoms Pulmonary: Reports: Shortness of Breath, Cough, Sputum Cardiovascular: Reports: Chest Pain Gastrointestinal: Denies: Diarrhea, Nausea, Vomiting Genitourinary: Reports: No Symptoms Skin: Reports: No Symptoms Neurological: Reports: No Symptoms - Patient Data Vitals - Most Recent: Last Vital Signs Temp 36.6 C 06/23/19 06:00 Pulse 102 H 06/23/19 08:32 Resp 22 H 06/23/19 06:00 BP 131/76 06/23/19 08:32 Pulse Ox 92 L 06/23/19 06:00 Weight - Most Recent: 71.384 kg Lab Results Last 24 Hours: Laboratory Results - last 24 hr 06/22/19 06/22/19 06/22/19 Range/Units 16:30 16:30 16:30 WBC 28.2 H* D (4.0-11.0) K/uL RBC 4.72 (3.80-5.80) M/uL Hgb 13.0 (11.5-16.5) g/dL Hct 41.1 (37.0-47.0) % MCV 87 (76-96) fL MCH 27.5 (27.0-32.0) pg MCHC 31.6 (31.0-35.0) g/dL RDW 15.1 (11.0-16.0) % Plt Count 266 (150-500) K/uL MPV 10.1 H (6.0-10.0) fL Neut % (Auto) 89.3 H (45.0-70.0) % Lymph % (Auto) 2.3 L (20.0-40.0) % [place] % (Auto) 8.2 (3.0-10.0) % Eos % (Auto) 0.0 L (1.0-5.0) % Baso % (Auto) 0.2 (0.0-0.5) % Neut # (Auto) 25.20 H (2.00-7.50) K/uL Lymph # (Auto) 0.64 L (1.50-4.00) K/uL [place] # (Auto) 2.30 H (0.20-0.80) K/uL Eos # (Auto) 0.01 L (0.04-0.40) K/uL Baso # (Auto) 0.07 (0.02-0.10) K/uL PT (9.0-11.5) sec INR (1.0-3.5) Sodium 137 (136-145) mmol/L Potassium 4.2 (3.5-5.1) mmol/L Chloride 91 L (98-107) mmol/L Carbon Dioxide 38.2 H (21.0-32.0) mmol/L Anion Gap 12.0 (5.0-15.0) mmol/L BUN 40 H D (8-26) mg/dL Creatinine 1.42 H (0.55-1.02) mg/dL Est Cr Clr Drug Dosing TNP Estimated GFR (MDRD) 37 L (>60) MLS/MIN BUN/Creatinine Ratio 28.2 H (6-25) Glucose 88 D (74-100) mg/dL POC Glucose (74-110) mg/dL Hemoglobin A1c 6.7 H (< 5.7) % Calcium 8.8 (8.5-10.1) mg/dL 06/22/19 06/23/19 06/23/19 Range/Units 19:41 07:11 09:30 WBC 20.4 H* D (4.0-11.0) K/uL RBC 4.05 (3.80-5.80) M/uL Hgb 11.2 L (11.5-16.5) g/dL Hct 36.7 L (37.0-47.0) % MCV 91 (76-96) fL MCH 27.7 (27.0-32.0) pg MCHC 30.5 L (31.0-35.0) g/dL RDW 15.1 (11.0-16.0) % Plt Count 245 (150-500) K/uL MPV 9.9 (6.0-10.0) fL Neut % (Auto) 87.8 H (45.0-70.0) % Lymph % (Auto) 2.7 L (20.0-40.0) % [place] % (Auto) 9.3 (3.0-10.0) % Eos % (Auto) 0.0 L (1.0-5.0) % Baso % (Auto) 0.2 (0.0-0.5) % Neut # (Auto) 17.89 H (2.00-7.50) K/uL Lymph # (Auto) 0.56 L (1.50-4.00) K/uL [place] # (Auto) 1.90 H (0.20-0.80) K/uL Eos # (Auto) 0.01 L (0.04-0.40) K/uL Baso # (Auto) 0.04 (0.02-0.10) K/uL PT (9.0-11.5) sec INR (1.0-3.5) Sodium (136-145) mmol/L Potassium (3.5-5.1) mmol/L Chloride (98-107) mmol/L Carbon Dioxide (21.0-32.0) mmol/L Anion Gap (5.0-15.0) mmol/L BUN (8-26) mg/dL Creatinine (0.55-1.02) mg/dL Est Cr Clr Drug Dosing Estimated GFR (MDRD) (>60) MLS/MIN BUN/Creatinine Ratio (6-25) Glucose (74-100) mg/dL POC Glucose 171 H 114 H (74-110) mg/dL Hemoglobin A1c (< 5.7) % Calcium (8.5-10.1) mg/dL 06/23/19 06/23/19 Range/Units 09:30 09:30 WBC (4.0-11.0) K/uL RBC (3.80-5.80) M/uL Hgb (11.5-16.5) g/dL Hct (37.0-47.0) % MCV (76-96) fL MCH (27.0-32.0) pg MCHC (31.0-35.0) g/dL RDW (11.0-16.0) % Plt Count (150-500) K/uL MPV (6.0-10.0) fL Neut % (Auto) (45.0-70.0) % Lymph % (Auto) (20.0-40.0) % [place] % (Auto) (3.0-10.0) % Eos % (Auto) (1.0-5.0) % Baso % (Auto) (0.0-0.5) % Neut # (Auto) (2.00-7.50) K/uL Lymph # (Auto) (1.50-4.00) K/uL [place] # (Auto) (0.20-0.80) K/uL Eos # (Auto) (0.04-0.40) K/uL Baso # (Auto) (0.02-0.10) K/uL PT 22.0 H (9.0-11.5) sec INR 2.4 (1.0-3.5) Sodium 135 L (136-145) mmol/L Potassium 4.0 (3.5-5.1) mmol/L Chloride 94 L (98-107) mmol/L Carbon Dioxide 38.6 H (21.0-32.0) mmol/L Anion Gap 6.4 (5.0-15.0) mmol/L BUN 53 H* D (8-26) mg/dL Creatinine 2.15 H D (0.55-1.02) mg/dL Est Cr Clr Drug Dosing 22.44 Estimated GFR (MDRD) 23 L (>60) MLS/MIN BUN/Creatinine Ratio 24.7 (6-25) Glucose 149 H D (74-100) mg/dL POC Glucose (74-110) mg/dL Hemoglobin A1c (< 5.7) % Calcium 8.3 L (8.5-10.1) mg/dL Med Orders - Current: Current Medications Acetaminophen (Tylenol) 650 mg PO Q4H PRN PRN Reason: Pain (Mild 1-3)/fever Albuterol (Proventil Neb Soln) 2.5 mg NEB Q6H PRN PRN Reason: Shortness of Breath Budesonide (Pulmicort) 0.5 mg NEB BID [facility] Last Admin: 06/23/19 10:53 Dose: 0.5 mg Cholecalciferol (Vitamin D3) 2,000 unit PO DAILY [facility] Desvenlafaxine Succinate (Pristiq) 50 mg PO QPM [facility] Last Admin: 06/22/19 21:54 Dose: 50 mg Digoxin (Lanoxin) 125 mcg PO DAILY [facility] Last Admin: 06/23/19 08:31 Dose: 125 mcg Diltiazem HCl (Dilacor Xr) 240 mg PO DAILY [facility] Last Admin: 06/23/19 08:48 Dose: 240 mg Diphenhydramine HCl (Benadryl) 25 mg PO BID [facility] Last Admin: 06/23/19 08:29 Dose: 25 mg Furosemide (Lasix) 40 mg PO DAILY [facility] Last Admin: 06/23/19 08:31 Dose: 40 mg Guaifenesin (Mucinex) 600 mg PO BID PRN PRN Reason: Congestion Hydroxyzine HCl (Atarax) 25 mg PO TID PRN PRN Reason: Anxiety Levofloxacin/Dextrose 750 mg/ (Premix) 150 mls @ 100 mls/hr IV Q24H [facility] Last Admin: 06/22/19 17:47 Dose: 100 mls/hr Gentamicin Sulfate 120 mg/ (Sodium Chloride) 103 mls @ 200 mls/hr IV DAILY [facility] Last Admin: 06/23/19 10:57 Dose: 200 mls/hr Sodium Chloride (Normal Saline) 1,000 mls @ 100 mls/hr IV ASDIRECTED [facility] Last Admin: 06/22/19 21:00 Dose: 100 mls/hr Insulin Aspart (Novolog) 0 unit SUBCUT TIDMEALS [facility] Last Admin: 06/23/19 08:24 Dose: Not Given Insulin Glargine (Lantus Solostar) 23 units SUBCUT ACBREAKFAST [facility] Last Admin: 06/23/19 09:00 Dose: Not Given Insulin Glargine (Lantus Solostar) 20 units SUBCUT BEDTIME [facility] Last Admin: 06/22/19 21:59 Dose: 18 units Melatonin (Melatonin) 10 mg PO BEDTIME [facility] Last Admin: 06/22/19 21:57 Dose: 10 mg Metoprolol Tartrate (Lopressor) 25 mg PO Q12HR [facility] Last Admin: 06/23/19 08:32 Dose: 25 mg Montelukast Sodium (Singulair) 10 mg PO PCLUNCH [facility] Multivitamins/Minerals/Vitamin C (Childrens Chewable Vitamin) 1 tab PO DAILY@ 1200 [facility] Nystatin (Mycostatin) 5 ml PO TID [facility] Last Admin: 06/23/19 08:32 Dose: 5 ml Omeprazole (Omeprazole) 20 mg PO ACBREAKFAST [facility] Last Admin: 06/23/19 08:22 Dose: 20 mg Ondansetron HCl (Zofran) 4 mg IV Q4H PRN PRN Reason: Nausea/Vomiting Oxycodone HCl (Oxycodone) 5 mg PO Q4H PRN PRN Reason: Pain (moderate 4-6) Last Admin: 06/22/19 17:51 Dose: 5 mg Prednisone (Prednisone) 10 mg PO DAILY [facility] Last Admin: 06/23/19 08:33 Dose: 10 mg Quetiapine Fumarate (Seroquel) 12.5 mg PO DAILY [facility] Last Admin: 06/23/19 08:33 Dose: 12.5 mg Quetiapine Fumarate (Seroquel) 25 mg PO BEDTIME [facility] Last Admin: 06/22/19 21:52 Dose: 25 mg Roflumilast (Daliresp) 500 mcg PO DAILY [facility] Last Admin: 06/23/19 08:30 Dose: 500 mcg Sodium Chloride (Saline Flush) 10 ml FLUSH ASDIRECTED PRN PRN Reason: Keep Vein Open Last Admin: 06/22/19 16:50 Dose: 10 ml Tramadol HCl (Ultram) 50 mg PO TID [facility] Last Admin: 06/23/19 08:35 Dose: 50 mg Warfarin Sodium (Coumadin) 8 mg PO DAILY@1800 [facility] Discontinued Medications Albuterol (Ventolin Hfa) 8 gm INH Q4H PRN PRN Reason: Shortness of Breath Albuterol (Ventolin Hfa) 0 gm INH Q4H PRN PRN Reason: Shortness of Breath Levofloxacin/Dextrose (Levaquin In D5w 750 Mg/150 Ml) Confirm Administered Dose 150 mls @ as directed IV .STK-MED ONE Stop: 06/22/19 17:42 Last Admin: 06/22/19 17:41 Dose: Not Given Melatonin (Melatonin) Confirm Administered Dose 10 mg .ROUTE .STK-MED ONE Stop: 06/22/19 21:49 Last Admin: 06/22/19 21:57 Dose: Not Given Non-Formulary Medication (Formoterol Fumarate [Perforomist]) 1 vial INH BID [facility] Last Admin: 06/22/19 22:07 Dose: 1 vial Non-Formulary Medication (Melatonin [Melatonin]) 5 mg PO BEDTIME [facility] Last Admin: 06/22/19 21:55 Dose: Not Given Non-Formulary Medication (Umeclidinium [place] [Incruse Ellipta]) 1 puff IH DAILY [facility] Non-Formulary Medication (Warfarin Sodium [Coumadin]) 8 mg PO DAILY@1800 [facility] Last Admin: 06/22/19 23:45 Dose: Not Given Oxycodone HCl (Oxycodone) Confirm Administered Dose 5 mg .ROUTE .STK-MED ONE Stop: 06/22/19 18:00 Last Admin: 06/22/19 17:50 Dose: Not Given - Exam Quality Assessment: Supplemental Oxygen General: Alert, Oriented, Cooperative, Moderate Distress HEENT: Pupils Equal, Pupils Reactive, EOMI, Mucous Membr. Moist/[place] Neck: Supple Lungs: Decreased Breath Sounds, Rales, Wheezing, Other (Intermittent inspiratory and expiratory wheezes bilaterally. Breath sounds decreased in bases with occasional crackles, left > right) GI/Abdominal Exam: Soft, Non-Tender, No Distention Back Exam: Normal Inspection Extremities: Normal Inspection Skin: Warm, Dry, Intact Neurological: No New Focal Deficit Psy/Mental Status: Alert, Normal Affect, Normal Mood - Problem List & Annotations (1) Pneumonia SNOMED Code(s): 990854312 Code(s): J18.9 - PNEUMONIA, UNSPECIFIED ORGANISM Status: Acute Priority: High Current Visit: Yes Qualifiers: Pneumonia type: due to unspecified organism Laterality: left Lung location: unspecified part of lung Qualified Code(s): J18.9 - Pneumonia, unspecified organism - Problem List Review Problem List Initiated/Reviewed/Updated: Yes - My Orders Last 24 Hours: My Active Orders 06/22/19 16:18 Sodium Chloride 0.9% [Saline Flush] 10 ml FLUSH ASDIRECTED PRN Saline Lock Insert [OM.PC] Stat 06/22/19 17:09 Patient Status [ADT] Routine Blood Glucose Check, Bedside [RC] QIDACANDBED Oxygen Therapy [RC] PRN Up With Assistance [RC] ASDIRECTED VTE/DVT Education [RC] Per Unit Routine Vital Signs [RC] Q4H OT Evaluation and Treatment [CONS] Routine PT Evaluation and Treatment [CONS] Routine Acetaminophen [Tylenol] 650 mg PO Q4H PRN Ondansetron [Zofran] 4 mg IV Q4H PRN oxyCODONE 5 mg PO Q4H PRN Resuscitation Status Routine 06/22/19 17:15 Gentamicin 120 mg Sodium Chloride 0.9% [Normal Saline] 100 ml IV DAILY Levofloxacin/Dextrose 5%-Water [Levaquin in D5W 750 MG/150 ML] 750 mg Premix Bag 1 bag IV Q24H 06/22/19 17:17 Albuterol [Proventil Neb Soln] 2.5 mg NEB Q6H PRN guaiFENesin [Mucinex] 600 mg PO BID PRN hydrOXYzine HCl [Atarax] 25 mg PO TID PRN 06/22/19 17:30 Budesonide [Pulmicort] 0.5 mg NEB BID 06/22/19 18:00 Insulin Aspart [NovoLOG] See Dose Instructions SUBCUT TIDMEALS 06/22/19 18:38 Warfarin [Coumadin] 8 mg PO DAILY@1800 06/22/19 20:00 Desvenlafaxine [Pristiq] 50 mg PO QPM Insulin Glarg,Human.Rec.Analog [LantUS Solostar] 20 units SUBCUT BEDTIME Metoprolol Tartrate [Lopressor] 25 mg PO Q12HR QUEtiapine [SEROqueL] 25 mg PO BEDTIME Sodium Chloride 0.9% [Normal Saline] 1,000 ml IV ASDIRECTED diphenhydrAMINE [Benadryl] 25 mg PO BID traMADol [Ultram] 50 mg PO TID 06/22/19 22:00 Melatonin 10 mg PO BEDTIME 06/22/19 23:15 Nystatin [Mycostatin] 5 ml PO TID 06/22/19 Dinner Regular Diet [DIET] 06/23/19 07:00 Insulin Glarg,Human.Rec.Analog [LantUS Solostar] 23 units SUBCUT ACBREAKFAST Omeprazole 20 mg PO ACBREAKFAST 06/23/19 08:00 Cholecalciferol (Vitamin D3) [Vitamin D3] 2,000 unit PO DAILY Digoxin [Lanoxin] 125 mcg PO DAILY Diltiazem [Dilacor XR] 240 mg PO DAILY Furosemide [Lasix] 40 mg PO DAILY QUEtiapine [SEROqueL] 12.5 mg PO DAILY Roflumilast [Daliresp] 500 mcg PO DAILY predniSONE 10 mg PO DAILY 06/23/19 08:56 CULTURE MRSA SURVEY [RM] Routine 06/23/19 09:35 Daily Weight [Height and Weight] [RC] DAILY 06/23/19 12:00 Multivitamins [Childrens Chewable Vitamin] 1 tab PO DAILY@1200 06/23/19 14:00 Montelukast [Singulair] 10 mg PO PCLUNCH - Plan Plan:: 1) IV antibiotics and fluids as needed. 2) Oxygen per saturation 3) Respiratory treatments per home routine and increased as needed. 4) Functional assessment: PT and OT 5) Smoking cessation encouraged
[2019-06-23] MEDS: Multivitamin, Childrens Tab.Chew PO SCH (12:03)
[2019-06-23] MEDS: Nystatin Topical Powder 15 GM Bottle TOP SCH ×2 (12:04→19:45)
[2019-06-23] MEDS: Montelukast 10 MG Tab PO SCH (14:06)
[2019-06-23] MEDS: oxyCODONE 5 MG Tab PO PRN (15:47)
[2019-06-23] MEDS ORDERED: Levofloxacin/Dextrose 5%-Water 150 ML IV ONE (16:53)
[2019-06-23] MEDS: Levofloxacin/Dextrose 5%-Water 750 MG in Premix Bag 1 BAG IV SCH (16:57)
[2019-06-23] MEDS: Warfarin 4 MG Tab PO SCH (17:21)
[2019-06-23] MEDS ORDERED: Warfarin 4 MG Tab ONE (17:24)
[2019-06-23] MEDS: Albuterol 0.083% 2.5 MG/3 ML Neb Soln NEB PRN (18:42)
[2019-06-23] MEDS: Melatonin 10 MG Cap PO SCH (19:21)
[2019-06-23] MEDS: Desvenlafaxine 50 MG Tab.ER PO SCH (19:28)
[2019-06-24] MEDS: Albuterol 0.083% 2.5 MG/3 ML Neb Soln NEB PRN ×3 (02:40→18:55)
[2019-06-24] MEDS: oxyCODONE 5 MG Tab PO PRN (03:26)
[2019-06-24] MEDS: Insulin Glargine,Human Rec. Analog 100 Units/ML 3 ML Pen SUBCUT SCH ×3 (03:35→21:17)
[2019-06-24] MEDS: Omeprazole 20 MG Cap.CR PO SCH (07:41)
[2019-06-24] MEDS: Budesonide 0.5 MG/2 ML Neb Susp NEB SCH ×2 (07:42→19:27)
[2019-06-24] MEDS: diphenhydrAMINE 25 MG Cap PO SCH ×2 (08:03→21:15)
[2019-06-24] MEDS: Diltiazem 240 MG Cap.ER PO SCH (08:04)
[2019-06-24] MEDS: Roflumilast 500 MCG Tab PO SCH (08:04)
[2019-06-24] MEDS: Digoxin 125 MCG Tab PO SCH (08:05)
[2019-06-24] MEDS: Furosemide 40 MG Tab PO SCH (08:06)
[2019-06-24] MEDS: Metoprolol Tartrate 25 MG Tab PO SCH ×2 (08:06→21:14)
[2019-06-24] MEDS: Nystatin Susp 100,000 Unit/ML 5 ML UD Cup PO SCH ×3 (08:07→21:18)
[2019-06-24] MEDS: Insulin Aspart 100 Units/ML 3 ML Pen SUBCUT SCH ×3 (08:07→17:47)
[2019-06-24] MEDS: predniSONE 10 MG Tab PO SCH (08:08)
[2019-06-24] MEDS: QUEtiapine 25 MG Tab PO SCH ×2 (08:08→21:15)
[2019-06-24] MEDS: traMADol 50 MG Tab PO SCH ×3 (08:10→21:14)
[2019-06-24] MEDS: Nystatin Topical Powder 15 GM Bottle TOP SCH ×2 (08:20→21:18)
[2019-06-24] MEDS ORDERED: Lidocaine 2% Viscous Solution 100 ML Bottle PO PRN (10:27)
--- NOTE | 2019-06-24 10:36 | PCM.PN ---
- General Info Date of Service: 06/24/19 Admission Dx/Problem (Free Text): Admission Diagnosis/Problem Admission Diagnosis/Problem Pneumonia Difficulty Breathing Subjective Update: Patient states she feels some better this morning although continues to have a headache. Nursing reports she slept better and has been more responsive this morning. She has been drinking fluids and taking a few bites of solids but doesn 't have much of an appetite yet. She is complaining of pain related to her mouth lesions as well. Functional Status: Reports: Other (continues to complain of headached and pain related to mouth sores) - Review of Systems General: Reports: Weakness. Denies: Fever HEENT: Reports: Headaches Pulmonary: Reports: Cough, Sputum (decreased slightly), Wheezing Gastrointestinal: Reports: No Symptoms Musculoskeletal: Reports: No Symptoms Skin: Reports: No Symptoms Neurological: Reports: No Symptoms - Patient Data Vitals - Most Recent: Last Vital Signs Temp 36.8 C 06/24/19 07:35 Pulse 91 06/24/19 08:06 Resp 22 H 06/24/19 07:35 BP 126/58 L 06/24/19 08:06 Pulse Ox 87 L 06/24/19 07:35 Weight - Most Recent: 71.384 kg Lab Results Last 24 Hours: Laboratory Results - last 24 hr 06/23/19 06/23/19 06/23/19 Range/Units 09:30 09:30 10:52 WBC 20.4 H* D (4.0-11.0) K/uL RBC 4.05 (3.80-5.80) M/uL Hgb 11.2 L (11.5-16.5) g/dL Hct 36.7 L (37.0-47.0) % MCV 91 (76-96) fL MCH 27.7 (27.0-32.0) pg MCHC 30.5 L (31.0-35.0) g/dL RDW 15.1 (11.0-16.0) % Plt Count 245 (150-500) K/uL MPV 9.9 (6.0-10.0) fL Neut % (Auto) 87.8 H (45.0-70.0) % Lymph % (Auto) 2.7 L (20.0-40.0) % [place] % (Auto) 9.3 (3.0-10.0) % Eos % (Auto) 0.0 L (1.0-5.0) % Baso % (Auto) 0.2 (0.0-0.5) % Neut # (Auto) 17.89 H (2.00-7.50) K/uL Lymph # (Auto) 0.56 L (1.50-4.00) K/uL [place] # (Auto) 1.90 H (0.20-0.80) K/uL Eos # (Auto) 0.01 L (0.04-0.40) K/uL Baso # (Auto) 0.04 (0.02-0.10) K/uL PT 22.0 H (9.0-11.5) sec INR 2.4 (1.0-3.5) POC Glucose 149 H (74-110) mg/dL 06/23/19 06/23/19 06/23/19 Range/Units 16:08 19:42 20:04 WBC (4.0-11.0) K/uL RBC (3.80-5.80) M/uL Hgb (11.5-16.5) g/dL Hct (37.0-47.0) % MCV (76-96) fL MCH (27.0-32.0) pg MCHC (31.0-35.0) g/dL RDW (11.0-16.0) % Plt Count (150-500) K/uL MPV (6.0-10.0) fL Neut % (Auto) (45.0-70.0) % Lymph % (Auto) (20.0-40.0) % [place] % (Auto) (3.0-10.0) % Eos % (Auto) (1.0-5.0) % Baso % (Auto) (0.0-0.5) % Neut # (Auto) (2.00-7.50) K/uL Lymph # (Auto) (1.50-4.00) K/uL [place] # (Auto) (0.20-0.80) K/uL Eos # (Auto) (0.04-0.40) K/uL Baso # (Auto) (0.02-0.10) K/uL PT (9.0-11.5) sec INR (1.0-3.5) POC Glucose 165 H 197 H 175 H (74-110) mg/dL 06/24/19 Range/Units 06:14 WBC (4.0-11.0) K/uL RBC (3.80-5.80) M/uL Hgb (11.5-16.5) g/dL Hct (37.0-47.0) % MCV (76-96) fL MCH (27.0-32.0) pg MCHC (31.0-35.0) g/dL RDW (11.0-16.0) % Plt Count (150-500) K/uL MPV (6.0-10.0) fL Neut % (Auto) (45.0-70.0) % Lymph % (Auto) (20.0-40.0) % [place] % (Auto) (3.0-10.0) % Eos % (Auto) (1.0-5.0) % Baso % (Auto) (0.0-0.5) % Neut # (Auto) (2.00-7.50) K/uL Lymph # (Auto) (1.50-4.00) K/uL [place] # (Auto) (0.20-0.80) K/uL Eos # (Auto) (0.04-0.40) K/uL Baso # (Auto) (0.02-0.10) K/uL PT (9.0-11.5) sec INR (1.0-3.5) POC Glucose 134 H (74-110) mg/dL [place] Results Last 24 Hours: Microbiology 06/23/19 08:56 MRSA Surveillance Culture - Final Nasal, Right NO MRSA ISOLATED Med Orders - Current: Current Medications Acetaminophen (Tylenol) 650 mg PO Q4H PRN PRN Reason: Pain (Mild 1-3)/fever Albuterol (Proventil Neb Soln) 2.5 mg NEB Q6H PRN PRN Reason: Shortness of Breath Last Admin: 06/24/19 02:40 Dose: 2.5 mg Budesonide (Pulmicort) 0.5 mg NEB BID [facility] Last Admin: 06/24/19 07:42 Dose: 0.5 mg Cholecalciferol (Vitamin D3) 2,000 unit PO DAILY@1200 [facility] Desvenlafaxine Succinate (Pristiq) 50 mg PO QPM [facility] Last Admin: 06/23/19 19:28 Dose: 50 mg Digoxin (Lanoxin) 125 mcg PO DAILY [facility] Last Admin: 06/24/19 08:05 Dose: 125 mcg Diltiazem HCl (Dilacor Xr) 240 mg PO DAILY [facility] Last Admin: 06/24/19 08:04 Dose: 240 mg Diphenhydramine HCl (Benadryl) 25 mg PO BID [facility] Last Admin: 06/24/19 08:03 Dose: 25 mg Furosemide (Lasix) 40 mg PO DAILY [facility] Last Admin: 06/24/19 08:06 Dose: 40 mg Guaifenesin (Mucinex) 600 mg PO BID PRN PRN Reason: Congestion Guaifenesin (Mucinex) 1,200 mg PO BID [facility] Hydroxyzine HCl (Atarax) 25 mg PO TID PRN PRN Reason: Anxiety Levofloxacin/Dextrose 750 mg/ (Premix) 150 mls @ 100 mls/hr IV Q24H [facility] Last Admin: 06/23/19 16:57 Dose: 100 mls/hr Sodium Chloride (Normal Saline) 1,000 mls @ 100 mls/hr IV ASDIRECTED [facility] Last Admin: 06/22/19 21:00 Dose: 100 mls/hr Gentamicin Sulfate 120 mg/ (Sodium Chloride) 103 mls @ 200 mls/hr IV DAILY@ 1100 [facility] Insulin Aspart (Novolog) 0 unit SUBCUT TIDMEALS [facility] Last Admin: 06/24/19 08:07 Dose: Not Given Insulin Glargine (Lantus Solostar) 23 units SUBCUT ACBREAKFAST [facility] Last Admin: 06/24/19 09:07 Dose: 18 unit Insulin Glargine (Lantus Solostar) 20 units SUBCUT BEDTIME [facility] Last Admin: 06/24/19 03:35 Dose: Not Given Lidocaine HCl (Xylocaine 2% Viscous) 5 ml PO ASDIRECTED PRN PRN Reason: mouth sores Melatonin (Melatonin) 10 mg PO BEDTIME [facility] Last Admin: 06/23/19 19:21 Dose: 10 mg Metoprolol Tartrate (Lopressor) 25 mg PO Q12HR [facility] Last Admin: 06/24/19 08:06 Dose: 25 mg Montelukast Sodium (Singulair) 10 mg PO PCLUNCH [facility] Last Admin: 06/23/19 14:06 Dose: 10 mg Multivitamins/Minerals/Vitamin C (Childrens Chewable Vitamin) 1 tab PO DAILY@ 1200 [facility] Last Admin: 06/23/19 12:03 Dose: 1 tab Nystatin (Mycostatin) 5 ml PO TID [facility] Last Admin: 06/24/19 08:07 Dose: 5 ml Nystatin (Nystop) 0 gm TOP BID [facility] Last Admin: 06/24/19 08:20 Dose: 1 applic Omeprazole (Omeprazole) 20 mg PO ACBREAKFAST [facility] Last Admin: 06/24/19 07:41 Dose: 20 mg Ondansetron HCl (Zofran) 4 mg IV Q4H PRN PRN Reason: Nausea/Vomiting Oxycodone HCl (Oxycodone) 5 mg PO Q4H PRN PRN Reason: Pain (moderate 4-6) Last Admin: 06/24/19 03:26 Dose: 5 mg Prednisone (Prednisone) 10 mg PO DAILY [facility] Last Admin: 06/24/19 08:08 Dose: 10 mg Quetiapine Fumarate (Seroquel) 12.5 mg PO DAILY [facility] Last Admin: 06/24/19 08:08 Dose: 12.5 mg Quetiapine Fumarate (Seroquel) 25 mg PO BEDTIME [facility] Last Admin: 06/23/19 19:27 Dose: 25 mg Roflumilast (Daliresp) 500 mcg PO DAILY [facility] Last Admin: 06/24/19 08:04 Dose: 500 mcg Sodium Chloride (Saline Flush) 10 ml FLUSH ASDIRECTED PRN PRN Reason: Keep Vein Open Last Admin: 06/22/19 16:50 Dose: 10 ml Tramadol HCl (Ultram) 50 mg PO TID [facility] Last Admin: 06/24/19 08:10 Dose: 50 mg Warfarin Sodium (Coumadin) 8 mg PO DAILY@1800 [facility] Last Admin: 06/23/19 17:21 Dose: 8 mg Discontinued Medications Albuterol (Ventolin Hfa) 8 gm INH Q4H PRN PRN Reason: Shortness of Breath Albuterol (Ventolin Hfa) 0 gm INH Q4H PRN PRN Reason: Shortness of Breath Cholecalciferol (Vitamin D3) 2,000 unit PO DAILY [facility] Last Admin: 06/23/19 12:03 Dose: 2,000 unit Gentamicin Sulfate 120 mg/ (Sodium Chloride) 103 mls @ 200 mls/hr IV DAILY [facility] Last Admin: 06/23/19 10:57 Dose: 200 mls/hr Levofloxacin/Dextrose (Levaquin In D5w 750 Mg/150 Ml) Confirm Administered Dose 150 mls @ as directed IV .STK-MED ONE Stop: 06/22/19 17:42 Last Admin: 06/22/19 17:41 Dose: Not Given Levofloxacin/Dextrose (Levaquin In D5w 750 Mg/150 Ml) Confirm Administered Dose 150 mls @ as directed IV .STK-MED ONE Stop: 06/23/19 16:54 Last Admin: 06/23/19 17:12 Dose: Not Given Melatonin (Melatonin) Confirm Administered Dose 10 mg .ROUTE .STK-MED ONE Stop: 06/22/19 21:49 Last Admin: 06/22/19 21:57 Dose: Not Given Non-Formulary Medication (Formoterol Fumarate [Perforomist]) 1 vial INH BID [facility] Last Admin: 06/22/19 22:07 Dose: 1 vial Non-Formulary Medication (Melatonin [Melatonin]) 5 mg PO BEDTIME [facility] Last Admin: 06/22/19 21:55 Dose: Not Given Non-Formulary Medication (Umeclidinium Stafford [Incruse Ellipta]) 1 puff IH DAILY [facility] Non-Formulary Medication (Warfarin Sodium [Coumadin]) 8 mg PO DAILY@1800 [facility] Last Admin: 06/22/19 23:45 Dose: Not Given Oxycodone HCl (Oxycodone) Confirm Administered Dose 5 mg .ROUTE .STK-MED ONE Stop: 06/22/19 18:00 Last Admin: 06/22/19 17:50 Dose: Not Given Warfarin Sodium (Coumadin) Confirm Administered Dose 4 mg .ROUTE .STK-MED ONE Stop: 06/23/19 17:25 Last Admin: 06/23/19 18:22 Dose: Not Given - Exam Quality Assessment: Supplemental Oxygen General: Alert, Oriented, Cooperative, No Acute Distress HEENT: Pupils Equal, Pupils Reactive Neck: Supple Lungs: Normal Respiratory Effort, Other (breath sounds improved overall with fewer wheezes. Air entry improved in all otto) Cardiovascular: Regular Rate, Regular Rhythm GI/Abdominal Exam: Soft, Non-Tender, No Distention Skin: Warm, Dry Neurological: No New Focal Deficit Psy/Mental Status: Alert, Normal Affect, Normal Mood - Problem List & Annotations (1) Pneumonia SNOMED Code(s): 285968662 Code(s): J18.9 - PNEUMONIA, UNSPECIFIED ORGANISM Status: Acute Priority: High Current Visit: Yes Qualifiers: Pneumonia type: due to unspecified organism Laterality: left Lung location: unspecified part of lung Qualified Code(s): J18.9 - Pneumonia, unspecified organism - Problem List Review Problem List Initiated/Reviewed/Updated: Yes - My Orders Last 24 Hours: My Active Orders 06/23/19 09:35 Daily Weight [Height and Weight] [RC] DAILY 06/23/19 12:00 Multivitamins [Childrens Chewable Vitamin] 1 tab PO DAILY@1200 Nystatin [Nystop] 0 gm TOP BID 06/23/19 14:00 Montelukast [Singulair] 10 mg PO PCLUNCH 06/24/19 10:27 Lidocaine 2% [Xylocaine 2% Viscous] 5 ml PO ASDIRECTED PRN 06/24/19 11:00 Gentamicin 120 mg Sodium Chloride 0.9% [Normal Saline] 100 ml IV DAILY@1100 06/24/19 12:00 Cholecalciferol (Vitamin D3) [Vitamin D3] 2,000 unit PO DAILY@1200 06/24/19 20:00 guaiFENesin [Mucinex] 1,200 mg PO BID 06/25/19 10:45 CBC WITH AUTO DIFF [HEME] Timed GENTAMICIN TROUGH [CHEM] Routine 06/25/19 12:30 GENTAMICIN PEAK [CHEM] Routine - Plan Plan:: 1) IV antibiotics and fluids as needed. 2) Oxygen per saturation 3) Respiratory treatments per home routine and increased as needed. 4) Functional assessment: PT and OT 5) Smoking cessation encouraged 06/24/19 1) Add mucinex per patient request. 2) Add viscious lidocaine per patient request. 3) Gentamycin levels scheduled for 06/25/19 with dose at 11:00 am. Nursing aware 4) Encourage fluids 5) Encourage patient to be out of bed more today
[2019-06-24] MEDS: guaiFENesin 600 MG Tab.ER PO SCH ×2 (11:44→19:49)
[2019-06-24] MEDS: Cholecalciferol (Vitamin D3) 2,000 Unit Cap PO SCH (11:51)
[2019-06-24] MEDS: Multivitamin, Childrens Tab.Chew PO SCH (11:52)
[2019-06-24] MEDS: Montelukast 10 MG Tab PO SCH (13:47)
[2019-06-24] MEDS ORDERED: Levofloxacin/Dextrose 5%-Water 150 ML IV ONE (15:28)
[2019-06-24] MEDS: Levofloxacin/Dextrose 5%-Water 750 MG in Premix Bag 1 BAG IV SCH (17:05)
[2019-06-24] MEDS: Warfarin 4 MG Tab PO SCH (17:34)
[2019-06-24] MEDS ORDERED: LORazepam 0.5 MG Tab ONE (20:56)
[2019-06-24] MEDS: Melatonin 10 MG Cap PO SCH (21:15)
[2019-06-24] MEDS: LORazepam 0.5 MG Tab PO PRN (21:16)
[2019-06-24] MEDS: Desvenlafaxine 50 MG Tab.ER PO SCH (21:19)
[2019-06-25] MEDS: oxyCODONE 5 MG Tab PO PRN (01:53)
[2019-06-25] MEDS: Albuterol 0.083% 2.5 MG/3 ML Neb Soln NEB PRN ×2 (06:06→11:42)
[2019-06-25] MEDS: Insulin Glargine,Human Rec. Analog 100 Units/ML 3 ML Pen SUBCUT SCH (06:12)
[2019-06-25] MEDS: Insulin Aspart 100 Units/ML 3 ML Pen SUBCUT SCH ×2 (07:11→13:05)
[2019-06-25] MEDS: Furosemide 40 MG Tab PO SCH (07:31)
[2019-06-25] MEDS: diphenhydrAMINE 25 MG Cap PO SCH (07:31)
[2019-06-25] MEDS: guaiFENesin 600 MG Tab.ER PO SCH (07:31)
[2019-06-25] MEDS: traMADol 50 MG Tab PO SCH ×2 (07:31→14:08)
[2019-06-25] MEDS: Omeprazole 20 MG Cap.CR PO SCH (07:31)
[2019-06-25] MEDS: Budesonide 0.5 MG/2 ML Neb Susp NEB SCH (07:31)
[2019-06-25] MEDS: Nystatin Susp 100,000 Unit/ML 5 ML UD Cup PO SCH ×2 (07:31→14:08)
[2019-06-25] MEDS: predniSONE 10 MG Tab PO SCH (07:32)
[2019-06-25] MEDS: QUEtiapine 25 MG Tab PO SCH (07:32)
[2019-06-25] MEDS: Roflumilast 500 MCG Tab PO SCH (07:32)
[2019-06-25] MEDS: Digoxin 125 MCG Tab PO SCH (07:37)
[2019-06-25] MEDS: Metoprolol Tartrate 25 MG Tab PO SCH (07:37)
[2019-06-25 07:39] VITALS: BP 124/64; PULSE 111
[2019-06-25] MEDS: Diltiazem 240 MG Cap.ER PO SCH (07:42)
[2019-06-25] MEDS: Nystatin Topical Powder 15 GM Bottle TOP SCH (08:56)
[2019-06-25] MEDS: Multivitamin, Childrens Tab.Chew PO SCH (11:42)
[2019-06-25] MEDS: Cholecalciferol (Vitamin D3) 2,000 Unit Cap PO SCH (11:42)
--- NOTE | 2019-06-25 11:46 | PCM.DCSUM1 ---
Discharge Summary - Discharge Data Discharge Date: 06/25/19 Discharge Disposition: DC/Tfer W/I Hosp To [facility] Condition: Fair - Referral to Home Health Primary Care Physician: Demetris Olvera MD - Patient Summary/Data Consults: Consultations 06/22/19 17:09 OT Evaluation and Treatment [CONS] Routine Please Evaluate and Treat. OT Reason for Consult: Strengthening This query below is only for informational purposes and is not editable. PT Evaluation and Treatment [CONS] Routine Please Evaluate and Treat. PT Reason for Consult: Other (Type Response) Pending Discharge: No This query below is only for informational purposes and is not editable. - Patient Instructions Diet: Usual Diet as Tolerated Activity: As Tolerated Driving: Do Not Drive - Discharge Plan *PRESCRIPTION DRUG MONITORING PROGRAM REVIEWED*: No Home Medications: Home Meds guaiFENesin [Mucinex] 600 mg PO BID PRN 10/02/14 [History] Omeprazole 20 mg PO DAILY 11/04/14 [History] Desvenlafaxine [Pristiq] 50 mg PO QPM 01/03/16 [History] traMADol [Ultram] 50 mg PO TID 01/03/16 [History] Melatonin 5 mg PO BEDTIME 06/22/16 [History] Multivitamins [Childrens Chewable Vitamin] 1 tab PO DAILY@1200 06/22/16 [History ] Umeclidinium [place] [Incruse Ellipta] 1 puff IH DAILY 09/27/16 [History] Digoxin [Lanoxin] 125 mcg PO DAILY tablet 04/01/17 [Rx] Insulin Aspart [NovoLOG] 0 unit SUBCUT TIDMEALS pen 04/01/17 [Rx] Albuterol Sulfate 2.5 mg IH QID 09/27/17 [History] Formoterol Fumarate [Perforomist] 1 vial INH BID 09/27/17 [History] Furosemide 40 mg PO DAILY 09/27/17 [History] Montelukast Sodium 10 mg PO PCLUNCH 09/27/17 [History] Roflumilast [Daliresp] 500 mcg PO DAILY 09/27/17 [History] Metoprolol Tartrate [Lopressor] 25 mg PO Q12HR 30 Days #60 tab 09/29/17 [Rx] QUEtiapine [SEROquel] 25 mg PO BEDTIME 06/05/18 [History] Cholecalciferol (Vitamin D3) [Vitamin D3] 2,000 unit PO DAILY 02/16/19 [History] Insulin Glargine,Hum.Rec.Anlog [Basaglar Kwikpen U-100] 20 units SQ BEDTIME [History] Insulin Glargine,Hum.Rec.Anlog [Basaglar Kwikpen U-100] 23 units SQ ACBREAKFAST 02/16/19 [History] Nystatin 1 dose PO TID 02/16/19 [History] diphenhydrAMINE HCl [Banophen] 25 mg PO BID 02/16/19 [History] predniSONE [Prednisone] 10 mg PO DAILY #28 tablet 02/16/19 [Rx] Diltiazem HCl [Cartia Xt] 240 mg PO DAILY 03/05/19 [History] QUEtiapine [SEROquel] 12.5 mg PO DAILY 03/05/19 [History] hydrOXYzine HCl [hydrOXYzine] 25 mg PO TID PRN 03/05/19 [History] Albuterol [Proventil Neb Soln] 2.5 mg NEB Q6H PRN neb 03/06/19 [Rx] Albuterol [Ventolin HFA] 8 gm INH Q4H PRN inhaler 03/06/19 [Rx] Budesonide [Pulmicort] 0.5 mg NEB BID neb 03/06/19 [Rx] Clindamycin HCl 300 mg PO QID #40 capsule 03/06/19 [Rx] Umeclidinium [place] [Incruse Ellipta] 1 puff IH DAILY 03/06/19 [Rx] Warfarin Sodium [Coumadin] 8 mg PO DAILY@1800 03/06/19 [Rx] Forms: ED Department Discharge Referrals: Demetris Olvera MD [Primary Care Provider] - - Discharge Summary/Plan Comment DC Time >30 min.: No Discharge Summary/Plan Comment: Patient counseled on rehabilitation. She has generalized weakness and stated she needs help. Patient counseled on care center vs rehabilitation and then further management. We will start trial of swing bed for rehab. PT/OT as directed. We will change medications to oral clindamycin after last gentamycin dose. - General Info Date of Service: 06/25/19 Subjective Update: Patient continues with shortness of breath and weakness. Her labs have improved and patient denies any fever or chills. She states she is very weak and needs help. - Review of Systems General: Reports: Weakness HEENT: Reports: No Symptoms Pulmonary: Reports: Shortness of Breath, Wheezing Cardiovascular: Reports: No Symptoms Gastrointestinal: Reports: No Symptoms Genitourinary: Reports: No Symptoms Musculoskeletal: Reports: No Symptoms Skin: Reports: No Symptoms Neurological: Reports: Weakness Psychiatric: Reports: No Symptoms - Patient Data Vitals - Most Recent: Last Vital Signs Temp 36.7 C 06/25/19 07:47 Pulse 111 H 06/25/19 07:47 Resp 18 06/25/19 07:47 BP 124/64 06/25/19 07:47 Pulse Ox 93 L 06/25/19 07:47 Weight - Most Recent: 71.384 kg Lab Results - Last 24 hrs: Laboratory Results - last 24 hr 06/24/19 06/24/19 06/24/19 Range/Units 10:57 13:02 16:07 WBC (4.0-11.0) K/uL RBC (3.80-5.80) M/uL Hgb (11.5-16.5) g/dL Hct (37.0-47.0) % MCV (76-96) fL MCH (27.0-32.0) pg MCHC (31.0-35.0) g/dL RDW (11.0-16.0) % Plt Count (150-500) K/uL MPV (6.0-10.0) fL Neut % (Auto) (45.0-70.0) % Lymph % (Auto) (20.0-40.0) % [place] % (Auto) (3.0-10.0) % Eos % (Auto) (1.0-5.0) % Baso % (Auto) (0.0-0.5) % Neut # (Auto) (2.00-7.50) K/uL Lymph # (Auto) (1.50-4.00) K/uL [place] # (Auto) (0.20-0.80) K/uL Eos # (Auto) (0.04-0.40) K/uL Baso # (Auto) (0.02-0.10) K/uL POC Glucose 174 H 165 H 214 H (74-110) mg/dL Gentamicin Trough (0.0-1.9) ug/mL 06/25/19 06/25/19 06/25/19 Range/Units 05:08 11:00 11:00 WBC 13.9 H D (4.0-11.0) K/uL RBC 3.88 (3.80-5.80) M/uL Hgb 10.7 L (11.5-16.5) g/dL Hct 34.6 L (37.0-47.0) % MCV 89 (76-96) fL MCH 27.6 (27.0-32.0) pg MCHC 30.9 L (31.0-35.0) g/dL RDW 14.7 (11.0-16.0) % Plt Count 291 (150-500) K/uL MPV 9.7 (6.0-10.0) fL Neut % (Auto) 82.2 H (45.0-70.0) % Lymph % (Auto) 3.6 L (20.0-40.0) % [place] % (Auto) 13.8 H (3.0-10.0) % Eos % (Auto) 0.3 L (1.0-5.0) % Baso % (Auto) 0.1 (0.0-0.5) % Neut # (Auto) 11.43 H (2.00-7.50) K/uL Lymph # (Auto) 0.50 L (1.50-4.00) K/uL [place] # (Auto) 1.92 H (0.20-0.80) K/uL Eos # (Auto) 0.04 (0.04-0.40) K/uL Baso # (Auto) 0.02 (0.02-0.10) K/uL POC Glucose 86 (74-110) mg/dL Gentamicin Trough 1.8 (0.0-1.9) ug/mL MILAGROS Results - Last 24 hrs: Microbiology 06/23/19 08:56 MRSA Surveillance Culture - Final Nasal, Right NO MRSA ISOLATED Med Orders - Current: Current Medications Acetaminophen (Tylenol) 650 mg PO Q4H PRN PRN Reason: Pain (Mild 1-3)/fever Last Admin: 06/24/19 11:44 Dose: 650 mg Albuterol (Proventil Neb Soln) 2.5 mg NEB Q6H PRN PRN Reason: Shortness of Breath Last Admin: 06/25/19 06:06 Dose: 2.5 mg Budesonide (Pulmicort) 0.5 mg NEB BID [facility], [facility] Last Admin: 06/25/19 07:31 Dose: 0.5 mg Cholecalciferol (Vitamin D3) 2,000 unit PO DAILY@1200 [facility], [facility] Last Admin: 06/24/19 11:51 Dose: 2,000 unit Desvenlafaxine Succinate (Pristiq) 50 mg PO QPM [facility], [facility] Last Admin: 06/24/19 21:19 Dose: 50 mg Digoxin (Lanoxin) 125 mcg PO DAILY [facility] Last Admin: 06/25/19 07:37 Dose: 125 mcg Diltiazem HCl (Dilacor Xr) 240 mg PO DAILY [facility] Last Admin: 06/25/19 07:42 Dose: 240 mg Diphenhydramine HCl (Benadryl) 25 mg PO BID [facility] Last Admin: 06/25/19 07:31 Dose: 25 mg Furosemide (Lasix) 40 mg PO DAILY [facility] Last Admin: 06/25/19 07:31 Dose: 40 mg Guaifenesin (Mucinex) 1,200 mg PO BID [facility] Last Admin: 06/25/19 07:31 Dose: 1,200 mg Hydroxyzine HCl (Atarax) 25 mg PO TID PRN PRN Reason: Anxiety Levofloxacin/Dextrose 750 mg/ (Premix) 150 mls @ 100 mls/hr IV Q24H [facility] Last Admin: 06/24/19 17:05 Dose: 100 mls/hr Sodium Chloride (Normal Saline) 1,000 mls @ 100 mls/hr IV ASDIRECTED [facility], [facility] Last Admin: 06/22/19 21:00 Dose: 100 mls/hr Gentamicin Sulfate 120 mg/ (Sodium Chloride) 103 mls @ 200 mls/hr IV DAILY@ 1100 [facility] Last Admin: 06/24/19 11:30 Dose: 200 mls/hr Insulin Aspart (Novolog) 0 unit SUBCUT TIDMEALS [facility], [facility] Last Admin: 06/25/19 07:11 Dose: Not Given Insulin Glargine (Lantus Solostar) 23 units SUBCUT ACBREAKFAST [facility] Last Admin: 06/25/19 06:12 Dose: Not Given Insulin Glargine (Lantus Solostar) 20 units SUBCUT BEDTIME [facility] Last Admin: 06/24/19 21:17 Dose: Not Given Lidocaine HCl (Xylocaine 2% Viscous) 5 ml PO ASDIRECTED PRN PRN Reason: mouth sores Last Admin: 06/24/19 13:54 Dose: 5 ml Lorazepam (Ativan) 0.5 mg PO Q6H PRN PRN Reason: Anxiety Last Admin: 06/24/19 21:16 Dose: 0.5 mg Melatonin (Melatonin) 10 mg PO BEDTIME [facility] Last Admin: 06/24/19 21:15 Dose: 10 mg Metoprolol Tartrate (Lopressor) 25 mg PO Q12HR [facility] Last Admin: 06/25/19 07:37 Dose: 25 mg Montelukast Sodium (Singulair) 10 mg PO PCLUNCH [facility] Last Admin: 06/24/19 13:47 Dose: 10 mg Multivitamins/Minerals/Vitamin C (Childrens Chewable Vitamin) 1 tab PO DAILY@ 1200 [facility] Last Admin: 06/24/19 11:52 Dose: 1 tab Nystatin (Mycostatin) 5 ml PO TID [facility] Last Admin: 06/25/19 07:31 Dose: 5 ml Nystatin (Nystop) 0 gm TOP BID [facility] Last Admin: 06/25/19 08:56 Dose: 1 applic Omeprazole (Omeprazole) 20 mg PO ACBREAKFAST [facility] Last Admin: 06/25/19 07:31 Dose: 20 mg Ondansetron HCl (Zofran) 4 mg IV Q4H PRN PRN Reason: Nausea/Vomiting Oxycodone HCl (Oxycodone) 5 mg PO Q4H PRN PRN Reason: Pain (moderate 4-6) Last Admin: 06/25/19 01:53 Dose: 5 mg Prednisone (Prednisone) 10 mg PO DAILY [facility] Last Admin: 06/25/19 07:32 Dose: 10 mg Quetiapine Fumarate (Seroquel) 12.5 mg PO DAILY [facility] Last Admin: 06/25/19 07:32 Dose: 12.5 mg Quetiapine Fumarate (Seroquel) 25 mg PO BEDTIME [facility] Last Admin: 06/24/19 21:15 Dose: 25 mg Roflumilast (Daliresp) 500 mcg PO DAILY [facility] Last Admin: 06/25/19 07:32 Dose: 500 mcg Sodium Chloride (Saline Flush) 10 ml FLUSH ASDIRECTED PRN PRN Reason: Keep Vein Open Last Admin: 06/22/19 16:50 Dose: 10 ml Tramadol HCl (Ultram) 50 mg PO TID [facility] Last Admin: 06/25/19 07:31 Dose: 50 mg Warfarin Sodium (Coumadin) 8 mg PO DAILY@1800 [facility] Last Admin: 06/24/19 17:34 Dose: 8 mg Discontinued Medications Albuterol (Ventolin Hfa) 8 gm INH Q4H PRN PRN Reason: Shortness of Breath Albuterol (Ventolin Hfa) 0 gm INH Q4H PRN PRN Reason: Shortness of Breath Cholecalciferol (Vitamin D3) 2,000 unit PO DAILY [facility] Last Admin: 06/23/19 12:03 Dose: 2,000 unit Guaifenesin (Mucinex) 600 mg PO BID PRN PRN Reason: Congestion Gentamicin Sulfate 120 mg/ (Sodium Chloride) 103 mls @ 200 mls/hr IV DAILY [facility] Last Admin: 06/23/19 10:57 Dose: 200 mls/hr Levofloxacin/Dextrose (Levaquin In D5w 750 Mg/150 Ml) Confirm Administered Dose 150 mls @ as directed IV .STK-MED ONE Stop: 06/22/19 17:42 Last Admin: 06/22/19 17:41 Dose: Not Given Levofloxacin/Dextrose (Levaquin In D5w 750 Mg/150 Ml) Confirm Administered Dose 150 mls @ as directed IV .STK-MED ONE Stop: 06/23/19 16:54 Last Admin: 06/23/19 17:12 Dose: Not Given Levofloxacin/Dextrose (Levaquin In D5w 750 Mg/150 Ml) Confirm Administered Dose 150 mls @ as directed IV .STK-MED ONE Stop: 06/24/19 15:29 Last Admin: 06/24/19 17:31 Dose: Not Given Lorazepam (Ativan) Confirm Administered Dose 0.5 mg .ROUTE .STK-MED ONE Stop: 06/24/19 20:57 Last Admin: 06/25/19 07:13 Dose: Not Given Melatonin (Melatonin) Confirm Administered Dose 10 mg .ROUTE .STK-MED ONE Stop: 06/22/19 21:49 Last Admin: 06/22/19 21:57 Dose: Not Given Non-Formulary Medication (Formoterol Fumarate [Perforomist]) 1 vial INH BID [facility] Last Admin: 06/22/19 22:07 Dose: 1 vial Non-Formulary Medication (Melatonin [Melatonin]) 5 mg PO BEDTIME [facility] Last Admin: 06/22/19 21:55 Dose: Not Given Non-Formulary Medication (Umeclidinium [place] [Incruse Ellipta]) 1 puff IH DAILY [facility] Non-Formulary Medication (Warfarin Sodium [Coumadin]) 8 mg PO DAILY@1800 [facility] Last Admin: 06/22/19 23:45 Dose: Not Given Oxycodone HCl (Oxycodone) Confirm Administered Dose 5 mg .ROUTE .STK-MED ONE Stop: 06/22/19 18:00 Last Admin: 06/22/19 17:50 Dose: Not Given Warfarin Sodium (Coumadin) Confirm Administered Dose 4 mg .ROUTE .STK-MED ONE Stop: 06/23/19 17:25 Last Admin: 06/23/19 18:22 Dose: Not Given - Exam Quality Assessment: Reports: Supplemental Oxygen General: Reports: Alert, Oriented, Cooperative HEENT: Reports: Pupils Equal, Pupils Reactive, EOMI Neck: Reports: Supple Lungs: Reports: Decreased Breath Sounds, Wheezing Cardiovascular: Reports: Regular Rhythm, Tachycardia GI/Abdominal Exam: Normal Bowel Sounds, Soft, Non-Tender Back Exam: Reports: Normal Inspection Extremities: Normal Inspection *Q Meaningful Use (DIS) - VTE *Q VTE Mechanical Contraindications *Q: At Risk for Falls
[2019-06-25] MEDS: Montelukast 10 MG Tab PO SCH (14:08)
[2019-06-25] MEDS: LORazepam 0.5 MG Tab PO PRN (15:33)
[2019-06-25] MEDS: Levofloxacin/Dextrose 5%-Water 750 MG in Premix Bag 1 BAG IV SCH (17:50)
== END 2019-06-25 17:50 | disposition swing bed (61) | DRG 194 ==
LOC: LB.ED 15:41 → LB.MS 17:09 → UNDOADMIN 18:00 → LB.MS 18:00
PROVIDERS: ADMIT Nurse Practitioner; ATTEND Nurse Practitioner
DX: J18.9 Pneumonia, unspecified organism (principal); R09.02 Hypoxemia; I13.0 Hypertensive heart and chronic kidney disease with heart failure and stage 1 through stage 4 chronic kidney disease, or unspecified chronic kidney disease; H91.90 Unspecified hearing loss, unspecified ear; H54.7 Unspecified visual loss; I50.9 Heart failure, unspecified; K59.09 Other constipation; K21.9 Gastro-esophageal reflux disease without esophagitis; E11.22 Type 2 diabetes mellitus with diabetic chronic kidney disease; N18.9 Chronic kidney disease, unspecified; M19.90 Unspecified osteoarthritis, unspecified site; G89.29 Other chronic pain; M54.9 Dorsalgia, unspecified; M54.2 Cervicalgia; G43.909 Migraine, unspecified, not intractable, without status migrainosus; F41.9 Anxiety disorder, unspecified; C34.90 Malignant neoplasm of unspecified part of unspecified bronchus or lung; F32.9 Major depressive disorder, single episode, unspecified; F17.210 Nicotine dependence, cigarettes, uncomplicated; Z88.0 Allergy status to penicillin; Z91.013 Allergy to seafood; Z88.2 Allergy status to sulfonamides; Z93.0 Tracheostomy status; Z88.8 Allergy status to other drugs, medicaments and biological substances; Z79.899 Other long term (current) drug therapy; Z79.51 Long term (current) use of inhaled steroids; Z87.440 Personal history of urinary (tract) infections; Z90.710 Acquired absence of both cervix and uterus; Z79.4 Long term (current) use of insulin; Z79.01 Long term (current) use of anticoagulants; Z85.118 Personal history of other malignant neoplasm of bronchus and lung
CPT/HCPCS: 36415; 71046; 80048; 80170; 82962; 83036; 85025; 85610; 99285-25; A0425; A0429; A9270-GY; J1580; J1815-GY; J1956; J7030

== ENCOUNTER 2019-06-25 13:41 | Inpatient (IN) | payer MEDICARE, MEDICAID ==
--- NOTE | 2019-06-25 13:50 | PCM.HP.2 ---
H&P History of Present Illness - General Date of Service: 06/25/19 Admit Problem/Dx: Admission Diagnosis/Problem Admission Diagnosis/Problem Weakness Source of Information: Patient History Limitations: Reports: No Limitations - History of Present Illness Initial Comments - Free Text/Narative: This is a 63yo F with recent pneumonia who requires rehabilitation for generalized weakness. She requires PT/OT therapy and management of her shortness of breath/severe COPD post hospital stay. Location: Reports: Generalized Improves with: Reports: None Worsens with: Reports: Movement Associated Symptoms: Reports: Shortness of Breath, Weakness - Related Data Allergies/Adverse Reactions: Allergies Allergy/AdvReac Type Severity Reaction Status Date / Time Penicillins Allergy Unknown Edema Verified 06/22/19 16:09 shellfish derived Allergy Unknown Anaphylactic Verified 06/22/19 16:09 Shock Sulfa (Sulfonamide Allergy Unknown Edema Verified 06/22/19 16:09 Antibiotics) clonidine AdvReac Intermediate Lethargy Verified 06/22/19 16:09 klonopin AdvReac Lethargy Uncoded 10/30/18 03:45 Home Medications: Home Meds guaiFENesin [Mucinex] 600 mg PO BID PRN 10/02/14 [History] Omeprazole 20 mg PO DAILY 11/04/14 [History] Desvenlafaxine [Pristiq] 50 mg PO QPM 01/03/16 [History] traMADol [Ultram] 50 mg PO TID 01/03/16 [History] Melatonin 5 mg PO BEDTIME 06/22/16 [History] Multivitamins [Childrens Chewable Vitamin] 1 tab PO DAILY@1200 06/22/16 [History ] Umeclidinium [place] [Incruse Ellipta] 1 puff IH DAILY 09/27/16 [History] Digoxin [Lanoxin] 125 mcg PO DAILY tablet 04/01/17 [Rx] Insulin Aspart [NovoLOG] 0 unit SUBCUT TIDMEALS pen 04/01/17 [Rx] Albuterol Sulfate 2.5 mg IH QID 09/27/17 [History] Formoterol Fumarate [Perforomist] 1 vial INH BID 09/27/17 [History] Furosemide 40 mg PO DAILY 09/27/17 [History] Montelukast Sodium 10 mg PO PCLUNCH 09/27/17 [History] Roflumilast [Daliresp] 500 mcg PO DAILY 09/27/17 [History] Metoprolol Tartrate [Lopressor] 25 mg PO Q12HR 30 Days #60 tab 09/29/17 [Rx] QUEtiapine [SEROquel] 25 mg PO BEDTIME 06/05/18 [History] Cholecalciferol (Vitamin D3) [Vitamin D3] 2,000 unit PO DAILY 02/16/19 [History] Insulin Glargine,Hum.Rec.Anlog [Basaglar Kwikpen U-100] 20 units SQ BEDTIME [History] Insulin Glargine,Hum.Rec.Anlog [Basaglar Kwikpen U-100] 23 units SQ ACBREAKFAST 02/16/19 [History] Nystatin 1 dose PO TID 02/16/19 [History] diphenhydrAMINE HCl [Banophen] 25 mg PO BID 02/16/19 [History] predniSONE [Prednisone] 10 mg PO DAILY #28 tablet 02/16/19 [Rx] Diltiazem HCl [Cartia Xt] 240 mg PO DAILY 03/05/19 [History] QUEtiapine [SEROquel] 12.5 mg PO DAILY 03/05/19 [History] hydrOXYzine HCl [hydrOXYzine] 25 mg PO TID PRN 03/05/19 [History] Albuterol [Proventil Neb Soln] 2.5 mg NEB Q6H PRN neb 03/06/19 [Rx] Albuterol [Ventolin HFA] 8 gm INH Q4H PRN inhaler 03/06/19 [Rx] Budesonide [Pulmicort] 0.5 mg NEB BID neb 03/06/19 [Rx] Clindamycin HCl 300 mg PO QID #40 capsule 03/06/19 [Rx] Umeclidinium [place] [Incruse Ellipta] 1 puff IH DAILY 03/06/19 [Rx] Warfarin Sodium [Coumadin] 8 mg PO DAILY@1800 03/06/19 [Rx] Past Medical History HEENT History: Reports: Allergic Rhinitis, Hard of Hearing, Impaired Vision, Other (See Below) Other HEENT History: trach placed x 2 years ago Cardiovascular History: Reports: Heart Failure, Hypertension, Other (See Below) Other Cardiovascular History: a flutter Respiratory History: Reports: SOB Other Respiratory History: SOB excessive plegm Gastrointestinal History: Reports: Chronic Constipation, GERD Genitourinary History: Reports: Chronic Renal Insuffiency, UTI, Recurrent Other Genitourinary History: no uti recently 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 OB/BYN History: hysterectomy Musculoskeletal History: Reports: Arthritis, Back Pain, Chronic, Neck Pain, Chronic Neurological History: Reports: Migraines Psychiatric History: Reports: Anxiety, Depression Endocrine/Metabolic History: Reports: Diabetes, Type II Hematologic History: Reports: Anemia Oncologic (Cancer) History: Reports: Lung Dermatologic History: Reports: Other (See Below) Other Dermatologic History: bruises easily - Infectious Disease History Infectious Disease History: Reports: Chicken Pox, 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, Other - Past Surgical History HEENT Surgical History: Reports: Other (See Below) GI Surgical History: Reports: Hernia, Abdominal Oncologic Surgical History: Reports: Other (See Below) Other Oncologic Surgeries/Procedures: hx biopsy of lung for cancer diagnosis Social & Family History - Family History Family Medical History: Noncontributory Cardiac: Reports: Hypertension Respiratory: Reports: Asthma, COPD Psychiatric: Reports: Anxiety - Caffeine Use Caffeine Use: Reports: None - Living Situation & Occupation Living situation: Reports: Single, with Significant Other Occupation: Disabled H&P Review of Systems - Review of Systems: Review Of Systems: Comprehensive ROS is negative, except as noted in HPI. Exam - Exam Exam: See Below - Exam Quality Assessment: Supplemental Oxygen General: Alert, Oriented, Cooperative HEENT: PERRLA, Conjunctiva Clear, EACs Clear Neck: Supple, Trachea Midline Lungs: Decreased Breath Sounds, Rhonchi Cardiovascular: Regular Rhythm, Tachycardia GI/Abdominal Exam: Normal Bowel Sounds Extremities: Normal Inspection Skin: Warm, Dry, Intact Neuro Extensive - Mental Status: Alert, Oriented x3, Normal Mood/Affect - Problem List (1) Pneumonia SNOMED Code(s): 226955147 ICD Code: J18.9 - PNEUMONIA, UNSPECIFIED ORGANISM Status: Acute Priority : High Qualifiers: (2) Leukocytosis SNOMED Code(s): 946150223, 465847770 ICD Code: D72.829 - ELEVATED WHITE BLOOD CELL COUNT, UNSPECIFIED Status: Acute (3) Shortness of breath SNOMED Code(s): 257352080 ICD Code: R06.02 - SHORTNESS OF BREATH Status: Acute (4) COPD (chronic obstructive pulmonary disease) SNOMED Code(s): 78631146 ICD Code: J44.9 - CHRONIC OBSTRUCTIVE PULMONARY DISEASE, UNSPECIFIED Status : Chronic Priority: High (5) Diabetes SNOMED Code(s): 48446776 ICD Code: E11.9 - TYPE 2 DIABETES MELLITUS WITHOUT COMPLICATIONS Status: Chronic Priority: Medium (6) HTN (hypertension) SNOMED Code(s): 38810134 ICD Code: I10 - ESSENTIAL (PRIMARY) HYPERTENSION Status: Chronic Priority : Low (7) Tobacco abuse SNOMED Code(s): 748871952 ICD Code: Z72.0 - TOBACCO USE Status: Chronic Priority: Low Onset Date : 02/02/16 Problem List Initiated/Reviewed/Updated: Yes Orders Last 24hrs: Active Orders 24 hr Category Date Time Status Patient Status [ADT] Routine ADT 06/25/19 13:46 Ordered OT Evaluation and Treatment [CONS] Routine Cons 06/25/19 13:46 Ordered PT Evaluation and Treatment [CONS] Routine Cons 06/25/19 13:46 Ordered Tuberculin, PPD [Aplisol] Med 06/25/19 13:46 Once 5 unit IDERM ONETIME ONE Assessment/Plan Comment:: Patient to be admitted to swing bed for rehabilitation and management of the shortness of breath. Patient will continue on oral antibiotics. F/u PT/OT recommendations.
[2019-06-25] MEDS ORDERED: Albuterol 8 GM Inhaler INH PRN (16:23)
[2019-06-25] MEDS ORDERED: Albuterol 0.083% 2.5 MG/3 ML Neb Soln NEB PRN (16:23)
[2019-06-25] MEDS: Clindamycin HCl 150 MG Cap PO SCH (17:22)
[2019-06-25] MEDS: Insulin Aspart 100 Units/ML 3 ML Pen SUBCUT SCH (17:29)
[2019-06-25] MEDS: Warfarin 4 MG Tab PO SCH (18:45)
[2019-06-25] MEDS: Budesonide 0.5 MG/2 ML Neb Susp NEB SCH (19:11)
[2019-06-25] MEDS: guaiFENesin 600 MG Tab.ER PO SCH (19:55)
[2019-06-25] MEDS: Melatonin 10 MG Cap PO SCH (19:55)
[2019-06-25] MEDS: Metoprolol Tartrate 25 MG Tab PO SCH (19:56)
[2019-06-25] MEDS: traMADol 50 MG Tab PO SCH (19:56)
[2019-06-25] MEDS: diphenhydrAMINE 25 MG Cap PO SCH (19:56)
[2019-06-25] MEDS: QUEtiapine 25 MG Tab PO SCH (19:56)
[2019-06-25] MEDS: Desvenlafaxine 50 MG Tab.ER PO SCH (19:57)
[2019-06-25] MEDS: Albuterol 0.083% 2.5 MG/3 ML Neb Soln INH SCH (19:59)
[2019-06-25] MEDS ORDERED: Nystatin Susp 100,000 Unit/ML 60 ML Bottle PO SCH (20:00)
[2019-06-25] MEDS: hydrOXYzine HCl 25 MG Tab PO PRN (20:22)
[2019-06-25] MEDS: Insulin Glargine,Human Rec. Analog 100 Units/ML 3 ML Pen SUBCUT SCH (21:44)
[2019-06-25] MEDS ORDERED: LORazepam 1 MG Tab PO ONE (22:16)
[2019-06-25] MEDS: Acetaminophen/HYDROcodone 325-5 MG Tab PO PRN (22:27)
[2019-06-26] MEDS: Clindamycin HCl 150 MG Cap PO SCH ×4 (00:13→18:26)
[2019-06-26] MEDS: Albuterol 0.083% 2.5 MG/3 ML Neb Soln INH SCH ×4 (03:30→20:38)
[2019-06-26] MEDS: Omeprazole 20 MG Cap.CR PO SCH (06:09)
[2019-06-26] MEDS ORDERED: Insulin Glargine,Human Rec. Analog 100 Units/ML 3 ML Pen SUBCUT SCH (07:00)
[2019-06-26] MEDS ORDERED: Non-Formulary Medication 1 Each (Umeclidinium Bromide [Incruse Ellipta] 1 PUFF) IH SCH (08:00)
[2019-06-26] MEDS: predniSONE 10 MG Tab PO SCH (08:51)
[2019-06-26] MEDS: Metoprolol Tartrate 25 MG Tab PO SCH ×2 (08:52→20:31)
[2019-06-26] MEDS: guaiFENesin 600 MG Tab.ER PO SCH ×2 (08:52→20:25)
[2019-06-26] MEDS: Digoxin 125 MCG Tab PO SCH (08:53)
[2019-06-26] MEDS: Furosemide 40 MG Tab PO SCH (08:53)
[2019-06-26] MEDS: traMADol 50 MG Tab PO SCH ×3 (08:53→20:29)
[2019-06-26] MEDS: Roflumilast 500 MCG Tab PO SCH (08:54)
[2019-06-26] MEDS: QUEtiapine 25 MG Tab PO SCH ×2 (08:54→20:32)
[2019-06-26] MEDS: diphenhydrAMINE 25 MG Cap PO SCH ×2 (08:54→20:25)
[2019-06-26] MEDS: Budesonide 0.5 MG/2 ML Neb Susp NEB SCH ×2 (08:56→20:31)
[2019-06-26] MEDS: Insulin Glargine,Human Rec. Analog 100 Units/ML 3 ML Pen SUBCUT SCH ×2 (09:27→22:02)
[2019-06-26] MEDS: Insulin Aspart 100 Units/ML 3 ML Pen SUBCUT SCH ×3 (09:28→18:39)
[2019-06-26] MEDS: Acetaminophen/HYDROcodone 325-5 MG Tab PO PRN (11:40)
[2019-06-26] MEDS: Diltiazem 240 MG Cap.ER PO SCH (12:42)
[2019-06-26] MEDS: Cholecalciferol (Vitamin D3) 2,000 Unit Cap PO SCH (12:49)
[2019-06-26] MEDS: Nystatin Topical Powder 15 GM Bottle TOP SCH ×2 (12:50→20:28)
[2019-06-26] MEDS: Multivitamin, Childrens Tab.Chew PO SCH (15:12)
[2019-06-26] MEDS: Montelukast 10 MG Tab PO SCH (15:12)
[2019-06-26] MEDS: Nystatin Susp 100,000 Unit/ML 5 ML UD Cup PO SCH ×2 (15:12→20:25)
[2019-06-26] MEDS: Warfarin 4 MG Tab PO SCH (18:26)
[2019-06-26] MEDS: Tuberculin, PPD 5 Units/0.1 ML 1 ML MDV IDERM ONE (18:38)
[2019-06-26] MEDS: Melatonin 10 MG Cap PO SCH (20:27)
[2019-06-26] MEDS: Desvenlafaxine 50 MG Tab.ER PO SCH (20:30)
[2019-06-27] MEDS: Albuterol 0.083% 2.5 MG/3 ML Neb Soln INH SCH ×4 (05:16→20:13)
[2019-06-27] MEDS: Clindamycin HCl 150 MG Cap PO SCH ×5 (05:16→23:17)
[2019-06-27] MEDS: Omeprazole 20 MG Cap.CR PO SCH (06:49)
[2019-06-27] MEDS: Nystatin Susp 100,000 Unit/ML 5 ML UD Cup PO SCH ×3 (07:35→20:09)
[2019-06-27] MEDS: QUEtiapine 25 MG Tab PO SCH ×2 (07:35→20:03)
[2019-06-27] MEDS: predniSONE 10 MG Tab PO SCH (07:36)
[2019-06-27] MEDS: Roflumilast 500 MCG Tab PO SCH (07:36)
[2019-06-27] MEDS: Digoxin 125 MCG Tab PO SCH (07:37)
[2019-06-27] MEDS: Diltiazem 240 MG Cap.ER PO SCH (07:37)
[2019-06-27] MEDS: guaiFENesin 600 MG Tab.ER PO SCH ×2 (07:37→19:58)
[2019-06-27] MEDS: traMADol 50 MG Tab PO SCH ×3 (07:38→20:02)
[2019-06-27] MEDS: diphenhydrAMINE 25 MG Cap PO SCH ×2 (07:38→19:58)
[2019-06-27] MEDS: Metoprolol Tartrate 25 MG Tab PO SCH ×2 (07:38→20:37)
[2019-06-27] MEDS: Furosemide 40 MG Tab PO SCH (07:38)
[2019-06-27] MEDS: Insulin Aspart 100 Units/ML 3 ML Pen SUBCUT SCH ×4 (07:40→19:03)
[2019-06-27] MEDS: Budesonide 0.5 MG/2 ML Neb Susp NEB SCH ×2 (07:41→20:13)
[2019-06-27] MEDS: Tiotropium Inhaler 18 MCG Inhalation Powder Cap Kit of 5 INH SCH (07:42)
[2019-06-27] MEDS: Nystatin Topical Powder 15 GM Bottle TOP SCH ×2 (07:46→20:00)
[2019-06-27] MEDS: Insulin Glargine,Human Rec. Analog 100 Units/ML 3 ML Pen SUBCUT SCH ×2 (08:06→21:52)
[2019-06-27] MEDS: Acetaminophen/HYDROcodone 325-5 MG Tab PO PRN ×3 (09:53→23:17)
[2019-06-27] MEDS: Multivitamin, Childrens Tab.Chew PO SCH (11:52)
[2019-06-27] MEDS: Cholecalciferol (Vitamin D3) 2,000 Unit Cap PO SCH (11:52)
[2019-06-27] MEDS: Montelukast 10 MG Tab PO SCH (14:29)
[2019-06-27] MEDS: hydrOXYzine HCl 25 MG Tab PO PRN (15:28)
[2019-06-27] MEDS: Desvenlafaxine 50 MG Tab.ER PO SCH (20:00)
[2019-06-27] MEDS: Melatonin 10 MG Cap PO SCH (20:01)
[2019-06-28] MEDS: Clindamycin HCl 150 MG Cap PO SCH ×4 (05:58→22:33)
[2019-06-28] MEDS: Omeprazole 20 MG Cap.CR PO SCH (06:01)
[2019-06-28] MEDS: Albuterol 0.083% 2.5 MG/3 ML Neb Soln INH SCH ×4 (06:01→21:37)
[2019-06-28] MEDS: Nystatin Topical Powder 15 GM Bottle TOP SCH ×2 (08:16→19:19)
[2019-06-28] MEDS: predniSONE 10 MG Tab PO SCH (08:17)
[2019-06-28] MEDS: Budesonide 0.5 MG/2 ML Neb Susp NEB SCH ×2 (08:18→19:27)
[2019-06-28] MEDS: Metoprolol Tartrate 25 MG Tab PO SCH ×2 (08:19→19:20)
[2019-06-28] MEDS: Roflumilast 500 MCG Tab PO SCH (08:19)
[2019-06-28] MEDS: guaiFENesin 600 MG Tab.ER PO SCH ×2 (08:19→19:21)
[2019-06-28] MEDS: diphenhydrAMINE 25 MG Cap PO SCH ×2 (08:20→19:20)
[2019-06-28] MEDS: traMADol 50 MG Tab PO SCH ×3 (08:20→19:20)
[2019-06-28] MEDS: Diltiazem 240 MG Cap.ER PO SCH (08:20)
[2019-06-28] MEDS: Digoxin 125 MCG Tab PO SCH (08:20)
[2019-06-28] MEDS: Nystatin Susp 100,000 Unit/ML 5 ML UD Cup PO SCH ×3 (08:21→19:19)
[2019-06-28] MEDS: Furosemide 40 MG Tab PO SCH (08:22)
[2019-06-28] MEDS: Insulin Aspart 100 Units/ML 3 ML Pen SUBCUT SCH ×4 (08:22→22:34)
[2019-06-28] MEDS: QUEtiapine 25 MG Tab PO SCH ×2 (08:23→19:20)
[2019-06-28] MEDS: Tiotropium Inhaler 18 MCG Inhalation Powder Cap Kit of 5 INH SCH (08:24)
[2019-06-28] MEDS: Insulin Glargine,Human Rec. Analog 100 Units/ML 3 ML Pen SUBCUT SCH ×2 (08:30→22:33)
[2019-06-28] MEDS: Multivitamin, Childrens Tab.Chew PO SCH ×2 (10:53→12:39)
[2019-06-28] MEDS: Cholecalciferol (Vitamin D3) 2,000 Unit Cap PO SCH (12:45)
[2019-06-28] MEDS: Gabapentin 300 MG Cap PO SCH ×2 (13:05→19:22)
[2019-06-28] MEDS: Montelukast 10 MG Tab PO SCH (13:06)
[2019-06-28] MEDS: Acetaminophen/HYDROcodone 325-5 MG Tab PO PRN ×2 (16:21→21:38)
[2019-06-28] MEDS: hydrOXYzine HCl 25 MG Tab PO PRN (16:22)
[2019-06-28] MEDS ORDERED: Insulin Aspart 100 Units/ML 3 ML Pen SUBCUT ONE (17:15)
[2019-06-28] MEDS: Tuberculin, PPD 5 Units/0.1 ML 1 ML MDV IDERM ONE (18:43)
[2019-06-28] MEDS: Melatonin 10 MG Cap PO SCH (19:20)
[2019-06-28] MEDS: Desvenlafaxine 50 MG Tab.ER PO SCH (19:21)
[2019-06-29] MEDS: Albuterol 0.083% 2.5 MG/3 ML Neb Soln INH SCH (03:38)
[2019-06-29] MEDS: Clindamycin HCl 150 MG Cap PO SCH ×2 (05:42→10:19)
[2019-06-29] MEDS: Acetaminophen/HYDROcodone 325-5 MG Tab PO PRN (06:01)
[2019-06-29] MEDS: guaiFENesin 600 MG Tab.ER PO SCH (07:36)
[2019-06-29] MEDS: Nystatin Susp 100,000 Unit/ML 5 ML UD Cup PO SCH (07:36)
[2019-06-29] MEDS: predniSONE 10 MG Tab PO SCH (07:37)
[2019-06-29] MEDS: traMADol 50 MG Tab PO SCH (07:38)
[2019-06-29] MEDS: Diltiazem 240 MG Cap.ER PO SCH (07:38)
[2019-06-29] MEDS: Digoxin 125 MCG Tab PO SCH (07:39)
[2019-06-29] MEDS: Roflumilast 500 MCG Tab PO SCH (07:39)
[2019-06-29] MEDS: QUEtiapine 25 MG Tab PO SCH (07:39)
[2019-06-29] MEDS: diphenhydrAMINE 25 MG Cap PO SCH (07:40)
[2019-06-29] MEDS: Omeprazole 20 MG Cap.CR PO SCH (07:40)
[2019-06-29] MEDS: Metoprolol Tartrate 25 MG Tab PO SCH (07:40)
[2019-06-29] MEDS: Furosemide 40 MG Tab PO SCH (07:40)
[2019-06-29] MEDS: Gabapentin 300 MG Cap PO SCH (07:40)
[2019-06-29 07:41] VITALS: BP 135/89; PULSE 85
[2019-06-29] MEDS: Budesonide 0.5 MG/2 ML Neb Susp NEB SCH (07:41)
[2019-06-29] MEDS: Nystatin Topical Powder 15 GM Bottle TOP SCH (07:41)
[2019-06-29] MEDS: Insulin Aspart 100 Units/ML 3 ML Pen SUBCUT SCH (07:44)
[2019-06-29] MEDS: Insulin Glargine,Human Rec. Analog 100 Units/ML 3 ML Pen SUBCUT SCH (07:47)
[2019-06-29] MEDS: Tiotropium Inhaler 18 MCG Inhalation Powder Cap Kit of 5 INH SCH (07:58)
[2019-06-29 08:52] LABS: HEMOGLOBIN A1C 7.7 % (< 5.7)
--- NOTE | 2019-06-29 10:28 | PCM.DCSUM1 ---
Discharge Summary - Discharge Data Discharge Date: 06/29/19 Discharge Disposition: Home, Self-Care 01 Condition: Good - Referral to Home Health Primary Care Physician: PCP None - Discharge Diagnosis/Problem(s) (1) Pneumonia SNOMED Code(s): 001188143 ICD Code: J18.9 - PNEUMONIA, UNSPECIFIED ORGANISM Status: Acute Priority : High Current Visit: No Qualifiers: (2) Leukocytosis SNOMED Code(s): 113164452, 384487679 ICD Code: D72.829 - ELEVATED WHITE BLOOD CELL COUNT, UNSPECIFIED Status: Acute Current Visit: No (3) Shortness of breath SNOMED Code(s): 844297461 ICD Code: R06.02 - SHORTNESS OF BREATH Status: Acute Current Visit: No (4) COPD (chronic obstructive pulmonary disease) SNOMED Code(s): 21196523 ICD Code: J44.9 - CHRONIC OBSTRUCTIVE PULMONARY DISEASE, UNSPECIFIED Status : Chronic Priority: High Current Visit: No (5) Diabetes SNOMED Code(s): 66728330 ICD Code: E11.9 - TYPE 2 DIABETES MELLITUS WITHOUT COMPLICATIONS Status: Chronic Priority: Medium Current Visit: No (6) HTN (hypertension) SNOMED Code(s): 26000945 ICD Code: I10 - ESSENTIAL (PRIMARY) HYPERTENSION Status: Chronic Priority : Low Current Visit: No (7) Tobacco abuse SNOMED Code(s): 987719302 ICD Code: Z72.0 - TOBACCO USE Status: Chronic Priority: Low Current Visit: No Onset Date: 02/02/16 - Patient Summary/Data Consults: Consultations 06/25/19 13:46 OT Evaluation and Treatment [CONS] Routine Please Evaluate and Treat. OT Reason for Consult: ADL's This query below is only for informational purposes and is not editable. Admission Diagnosis/Problem: Weakness PT Evaluation and Treatment [CONS] Routine Please Evaluate and Treat. PT Reason for Consult: Ambulation This query below is only for informational purposes and is not editable. Admission Diagnosis/Problem: Weakness - Discharge Plan Prescriptions/Med Rec: Fluconazole [Diflucan] 150 mg PO ONETIME #2 tab Home Medications: Home Meds RX: guaiFENesin [Mucinex] 1,200 mg PO BID 10/02/14 [History] RX: Omeprazole 20 mg PO DAILY 11/04/14 [History] RX: Desvenlafaxine [Pristiq] 50 mg PO QPM 01/03/16 [History] RX: traMADol [Ultram] 50 mg PO TID 01/03/16 [History] RX: Melatonin 5 mg PO BEDTIME 06/22/16 [History] RX: Multivitamins [Childrens Chewable Vitamin] 1 tab PO DAILY@1200 06/22/16 [ History] RX: Digoxin [Lanoxin] 125 mcg PO DAILY tablet 04/01/17 [Rx] RX: Insulin Aspart [NovoLOG] 0 unit SUBCUT TIDMEALS pen 04/01/17 [Rx] RX: Formoterol Fumarate [Perforomist] 1 vial INH BID 09/27/17 [History] RX: Furosemide 40 mg PO DAILY 09/27/17 [History] RX: Montelukast Sodium 10 mg PO PCLUNCH 09/27/17 [History] RX: Roflumilast [Daliresp] 500 mcg PO DAILY 09/27/17 [History] RX: Metoprolol Tartrate [Lopressor] 25 mg PO Q12HR 30 Days #60 tab 09/29/17 [Rx] RX: QUEtiapine [SEROquel] 25 mg PO BEDTIME 06/05/18 [History] RX: Cholecalciferol (Vitamin D3) [Vitamin D3] 2,000 unit PO DAILY 02/16/19 [ History] RX: Insulin Glargine,Hum.Rec.Anlog [Basaglar Kwikpen U-100] 18 units SQ ACBREAKFAST 02/16/19 [History] RX: Insulin Glargine,Hum.Rec.Anlog [Basaglar Kwikpen U-100] 18 units SQ BEDTIME 02/16/19 [History] RX: Nystatin 1 dose PO TID 02/16/19 [History] RX: diphenhydrAMINE HCl [Banophen] 25 mg PO BID 02/16/19 [History] RX: predniSONE [Prednisone] 10 mg PO DAILY #28 tablet 02/16/19 [Rx] RX: Diltiazem HCl [Cartia Xt] 240 mg PO DAILY 03/05/19 [History] RX: QUEtiapine [SEROquel] 12.5 mg PO DAILY 03/05/19 [History] RX: hydrOXYzine HCl [hydrOXYzine] 25 mg PO TID PRN 03/05/19 [History] RX: Albuterol [Proventil Neb Soln] 2.5 mg NEB Q6H PRN neb 03/06/19 [Rx] RX: Albuterol [Ventolin HFA] 8 gm INH Q4H PRN inhaler 03/06/19 [Rx] RX: Budesonide [Pulmicort] 0.5 mg NEB BID neb 03/06/19 [Rx] Umeclidinium [place] [Incruse Ellipta] 1 puff IH DAILY 03/06/19 [Rx] Warfarin Sodium [Coumadin] 8 mg PO DAILY@1800 03/06/19 [Rx] Fluconazole [Diflucan] 150 mg PO ONETIME #2 tab 06/29/19 [Rx] Patient Handouts: Community-Acquired Pneumonia, Adult, [id number] - Discharge Summary/Plan Comment DC Time >30 min.: No Discharge Summary/Plan Comment: Counseled on continued PT/OT needed. Patient refuses PT/OT though. Discussed weakness and continued COPD concerns. Patient to f/u in clinic as directed. No medication changes. F/u as directed. - Patient Data Vitals - Most Recent: Last Vital Signs Temp 37.4 C 06/29/19 08:00 Pulse 85 06/29/19 08:00 Resp 16 06/29/19 08:00 BP 135/89 06/29/19 08:00 Pulse Ox 20 L 06/29/19 08:00 Weight - Most Recent: 45.087 kg Lab Results - Last 24 hrs: Laboratory Results - last 24 hr 06/28/19 06/28/19 06/28/19 Range/Units 11:33 16:17 20:35 PT (9.0-11.5) sec INR (1.0-3.5) Sodium (136-145) mmol/L Potassium (3.5-5.1) mmol/L Chloride (98-107) mmol/L Carbon Dioxide (21.0-32.0) mmol/L Anion Gap (5.0-15.0) mmol/L BUN (8-26) mg/dL Creatinine (0.55-1.02) mg/dL Est Cr Clr Drug Dosing mL/min Estimated GFR (MDRD) (>60) MLS/MIN BUN/Creatinine Ratio (6-25) Glucose (74-100) mg/dL POC Glucose 164 H 493 H* 432 H* (74-110) mg/dL Hemoglobin A1c (< 5.7) % Calcium (8.5-10.1) mg/dL 06/28/19 06/29/19 06/29/19 Range/Units 22:00 06:35 07:55 PT 30.1 H D (9.0-11.5) sec INR 3.3 D (1.0-3.5) Sodium (136-145) mmol/L Potassium (3.5-5.1) mmol/L Chloride (98-107) mmol/L Carbon Dioxide (21.0-32.0) mmol/L Anion Gap (5.0-15.0) mmol/L BUN (8-26) mg/dL Creatinine (0.55-1.02) mg/dL Est Cr Clr Drug Dosing mL/min Estimated GFR (MDRD) (>60) MLS/MIN BUN/Creatinine Ratio (6-25) Glucose 409 H* D (74-100) mg/dL POC Glucose 159 H (74-110) mg/dL Hemoglobin A1c (< 5.7) % Calcium (8.5-10.1) mg/dL 06/29/19 06/29/19 Range/Units 07:55 07:55 PT (9.0-11.5) sec INR (1.0-3.5) Sodium 138 (136-145) mmol/L Potassium 3.9 (3.5-5.1) mmol/L Chloride 96 L (98-107) mmol/L Carbon Dioxide 43.8 H (21.0-32.0) mmol/L Anion Gap 2.1 L (5.0-15.0) mmol/L BUN 28 H D (8-26) mg/dL Creatinine 1.41 H D (0.55-1.02) mg/dL Est Cr Clr Drug Dosing 29.44 mL/min Estimated GFR (MDRD) 38 L (>60) MLS/MIN BUN/Creatinine Ratio 19.9 (6-25) Glucose 168 H D (74-100) mg/dL POC Glucose (74-110) mg/dL Hemoglobin A1c 7.7 H (< 5.7) % Calcium 8.1 L (8.5-10.1) mg/dL Med Orders - Current: Current Medications Hydrocodone Bitart/Acetaminophen ([place] 325-5 Mg) 1 tab PO Q4H PRN PRN Reason: Pain Last Admin: 06/29/19 06:01 Dose: 1 tab Albuterol (Proventil Neb Soln) 2.5 mg NEB Q6H PRN PRN Reason: Shortness of Breath Last Admin: 06/25/19 17:39 Dose: 2.5 mg Albuterol (Proventil Neb Soln) 2.5 mg INH Q6H [facility] Last Admin: 06/29/19 03:38 Dose: Not Given Budesonide (Pulmicort) 0.5 mg NEB BID [facility] Last Admin: 06/29/19 07:41 Dose: 0.5 mg Cholecalciferol (Vitamin D3) 2,000 unit PO DAILY@1200 [facility] Last Admin: 06/28/19 12:45 Dose: 2,000 unit Clindamycin HCl (Cleocin) 450 mg PO Q6H [facility] Stop: 07/04/19 23:59 Last Admin: 06/29/19 10:19 Dose: 450 mg Desvenlafaxine Succinate (Pristiq) 50 mg PO QPM [facility] Last Admin: 06/28/19 19:21 Dose: 50 mg Digoxin (Lanoxin) 125 mcg PO DAILY [facility] Last Admin: 06/29/19 07:39 Dose: 125 mcg Diltiazem HCl (Dilacor Xr) 240 mg PO DAILY [facility] Last Admin: 06/29/19 07:38 Dose: 240 mg Diphenhydramine HCl (Benadryl) 25 mg PO BID [facility] Last Admin: 06/29/19 07:40 Dose: 25 mg Furosemide (Lasix) 40 mg PO DAILY [facility] Last Admin: 06/29/19 07:40 Dose: 40 mg Gabapentin (Neurontin) 300 mg PO TID [facility] Last Admin: 06/29/19 07:40 Dose: 300 mg Guaifenesin (Mucinex) 1,200 mg PO BID [facility] Last Admin: 06/29/19 07:36 Dose: 1,200 mg Hydroxyzine HCl (Atarax) 25 mg PO TID PRN PRN Reason: Anxiety Last Admin: 06/28/19 16:22 Dose: 25 mg Insulin Aspart (Novolog) 0 unit SUBCUT TIDMEALS [facility]; Protocol Last Admin: 06/29/19 07:44 Dose: 159 units Insulin Glargine (Lantus Solostar) 18 units SUBCUT BEDTIME [facility] Last Admin: 06/28/19 22:33 Dose: 18 unit Insulin Glargine (Lantus Solostar) 18 units SUBCUT DAILY [facility] Last Admin: 06/29/19 07:47 Dose: 18 units Melatonin (Melatonin) 10 mg PO BEDTIME [facility] Last Admin: 06/28/19 19:20 Dose: 10 mg Metoprolol Tartrate (Lopressor) 25 mg PO Q12HR [facility] Last Admin: 06/29/19 07:40 Dose: 25 mg Montelukast Sodium (Singulair) 10 mg PO PCLUNCH [facility] Last Admin: 06/28/19 13:06 Dose: 10 mg Multivitamins/Minerals/Vitamin C (Childrens Chewable Vitamin) 1 tab PO DAILY@ 1200 [facility] Last Admin: 06/28/19 12:39 Dose: Not Given Nystatin (Nystop) 0 - 1 gm TOP BID [facility] Last Admin: 06/29/19 07:41 Dose: 1 applic Nystatin (Mycostatin) 5 ml PO TID [facility] Last Admin: 06/29/19 07:36 Dose: 5 ml Omeprazole (Omeprazole) 20 mg PO ACBREAKFAST [facility] Last Admin: 06/29/19 07:40 Dose: 20 mg Prednisone (Prednisone) 40 mg PO DAILY [facility]; Taper Stop: 07/04/19 07:59 Last Admin: 06/29/19 07:37 Dose: 40 mg Prednisone (Prednisone) 10 mg PO DAILY [facility] Quetiapine Fumarate (Seroquel) 12.5 mg PO DAILY [facility] Last Admin: 06/29/19 07:39 Dose: 12.5 mg Quetiapine Fumarate (Seroquel) 25 mg PO BEDTIME [facility] Last Admin: 06/28/19 19:20 Dose: 25 mg Roflumilast (Daliresp) 500 mcg PO DAILY [facility] Last Admin: 06/29/19 07:39 Dose: 500 mcg Tiotropium [place] (Spiriva Handihaler) 18 mcg INH DAILY [facility] Last Admin: 06/29/19 07:58 Dose: 18 mcg Tramadol HCl (Ultram) 50 mg PO TID [facility] Last Admin: 06/29/19 07:38 Dose: 50 mg Warfarin Sodium (Coumadin) 8 mg PO DAILY@1800 [facility] Last Admin: 06/26/19 18:26 Dose: 8 mg Discontinued Medications Insulin Aspart (Novolog) 20 unit SUBCUT ONETIME ONE Stop: 06/28/19 17:16 Last Admin: 06/28/19 17:52 Dose: 20 units Insulin Glargine (Lantus Solostar) 18 units SUBCUT ACBREAKFAST [facility] Lorazepam (Ativan) 1 mg PO ONETIME ONE Stop: 06/25/19 22:17 Nystatin (Mycostatin) 0 ml PO TID [facility] Last Admin: 06/25/19 19:57 Dose: 60 ml Tuberculin PPD (Aplisol) 5 unit IDERM ONETIME ONE Stop: 06/25/19 13:47 Last Admin: 06/28/19 18:43 Dose: Not Given
[2019-07-05] MEDS ORDERED: predniSONE 10 MG Tab PO SCH (08:00)
== END 2019-06-29 10:40 | disposition home or self-care (01) | DRG 947 ==
LOC: LB.MS 13:46
PROVIDERS: ADMIT Family Medicine; ATTEND Family Medicine
DX: R53.1 Weakness (principal); J18.9 Pneumonia, unspecified organism; J44.0 Chronic obstructive pulmonary disease with (acute) lower respiratory infection; I13.0 Hypertensive heart and chronic kidney disease with heart failure and stage 1 through stage 4 chronic kidney disease, or unspecified chronic kidney disease; H54.7 Unspecified visual loss; H91.90 Unspecified hearing loss, unspecified ear; I50.9 Heart failure, unspecified; K21.9 Gastro-esophageal reflux disease without esophagitis; K59.09 Other constipation; N18.9 Chronic kidney disease, unspecified; M19.90 Unspecified osteoarthritis, unspecified site; G89.29 Other chronic pain; M54.2 Cervicalgia; M54.9 Dorsalgia, unspecified; F41.9 Anxiety disorder, unspecified; F32.9 Major depressive disorder, single episode, unspecified; E11.22 Type 2 diabetes mellitus with diabetic chronic kidney disease; D64.9 Anemia, unspecified; Z72.0 Tobacco use; Z79.899 Other long term (current) drug therapy; Z79.4 Long term (current) use of insulin; Z79.01 Long term (current) use of anticoagulants; Z88.0 Allergy status to penicillin; Z87.440 Personal history of urinary (tract) infections; Z90.710 Acquired absence of both cervix and uterus; Z91.013 Allergy to seafood; Z88.2 Allergy status to sulfonamides; Z88.8 Allergy status to other drugs, medicaments and biological substances
CPT/HCPCS: 36415; 80048; 82947; 82962; 83036; 85610; 86580; 97110-GO; 97110-GP; 97161-GP; 97165-GO; 97530-GO; A0425; A0429; A9270-GY; J1815-GY

== ENCOUNTER 2019-07-09 17:15 | Emergency (ER) | payer MEDICARE, MEDICAID ==
[2019-07-09] MEDS ORDERED: Ciprofloxacin 0.3% Ophth Soln 2.5 ML Bottle ONE (17:30)
[2019-07-09] MEDS ORDERED: Cephalexin 500 MG Cap ONE (17:30)
[2019-07-09 17:55] VITALS: BP 113/60; PULSE 103
--- NOTE | 2019-07-10 13:12 | EDM.PDOC ---
ED HPI GENERAL MEDICAL PROBLEM - General Chief Complaint: General Stated Complaint: RED PAINFUL RT EYE Time Seen by Provider: 07/09/19 17:30 Source of Information: Reports: Patient History Limitations: Reports: No Limitations - History of Present Illness INITIAL COMMENTS - FREE TEXT/NARRATIVE: This is a 63yo F here for redness and discharge of the right eye. She notes that the symptoms started on evening and worsened throughout the weekend. She denies any fever or other concerns. Onset: Gradual Duration: Day(s): Location: Reports: Other (right eye and eyelid) Severity: Mild Improves with: Reports: None Worsens with: Reports: None Associated Symptoms: Reports: No Other Symptoms - Related Data Allergies Allergy/AdvReac Type Severity Reaction Status Date / Time Penicillins Allergy Unknown Edema Verified 06/22/19 16:09 shellfish derived Allergy Unknown Anaphylactic Verified 06/22/19 16:09 Shock Sulfa (Sulfonamide Allergy Unknown Edema Verified 06/22/19 16:09 Antibiotics) clonidine AdvReac Intermediate Lethargy Verified 06/22/19 16:09 klonopin AdvReac Lethargy Uncoded 10/30/18 03:45 Home Meds: Home Meds guaiFENesin [Mucinex] 1,200 mg PO BID 10/02/14 [History] Omeprazole 20 mg PO DAILY 11/04/14 [History] Desvenlafaxine [Pristiq] 50 mg PO QPM 01/03/16 [History] traMADol [Ultram] 50 mg PO TID 01/03/16 [History] Melatonin 5 mg PO BEDTIME 06/22/16 [History] Multivitamins [Childrens Chewable Vitamin] 1 tab PO DAILY@1200 06/22/16 [History ] Digoxin [Lanoxin] 125 mcg PO DAILY tablet 04/01/17 [Rx] Insulin Aspart [NovoLOG] 0 unit SUBCUT TIDMEALS pen 04/01/17 [Rx] Formoterol Fumarate [Perforomist] 1 vial INH BID 09/27/17 [History] Furosemide 40 mg PO DAILY 09/27/17 [History] Montelukast Sodium 10 mg PO PCLUNCH 09/27/17 [History] Roflumilast [Daliresp] 500 mcg PO DAILY 09/27/17 [History] Metoprolol Tartrate [Lopressor] 25 mg PO Q12HR 30 Days #60 tab 09/29/17 [Rx] QUEtiapine [SEROquel] 25 mg PO BEDTIME 06/05/18 [History] Cholecalciferol (Vitamin D3) [Vitamin D3] 2,000 unit PO DAILY 02/16/19 [History] Insulin Glargine,Hum.Rec.Anlog [Basaglar Kwikpen U-100] 18 units SQ ACBREAKFAST 02/16/19 [History] Insulin Glargine,Hum.Rec.Anlog [Basaglar Kwikpen U-100] 18 units SQ BEDTIME [History] Nystatin 1 dose PO TID 02/16/19 [History] diphenhydrAMINE HCl [Banophen] 25 mg PO BID 02/16/19 [History] predniSONE [Prednisone] 10 mg PO DAILY #28 tablet 02/16/19 [Rx] Diltiazem HCl [Cartia Xt] 240 mg PO DAILY 03/05/19 [History] QUEtiapine [SEROquel] 12.5 mg PO DAILY 03/05/19 [History] hydrOXYzine HCL [hydrOXYzine] 25 mg PO TID PRN 03/05/19 [History] Albuterol [Proventil Neb Soln] 2.5 mg NEB Q6H PRN neb 03/06/19 [Rx] Albuterol [Ventolin HFA] 8 gm INH Q4H PRN inhaler 03/06/19 [Rx] Budesonide [Pulmicort] 0.5 mg NEB BID neb 03/06/19 [Rx] Umeclidinium [place] [Incruse Ellipta] 1 puff IH DAILY 03/06/19 [Rx] Warfarin Sodium [Coumadin] 8 mg PO DAILY@1800 03/06/19 [Rx] Fluconazole [Diflucan] 150 mg PO ONETIME #2 tab 06/29/19 [Rx] Past Medical History HEENT History: Reports: Allergic Rhinitis, Hard of Hearing, Impaired Vision, Other (See Below) Other HEENT History: trach placed x 2 years ago Cardiovascular History: Reports: Heart Failure, Hypertension, Other (See Below) Other Cardiovascular History: a flutter Respiratory History: Reports: SOB Other Respiratory History: SOB excessive plegm Gastrointestinal History: Reports: Chronic Constipation, GERD Genitourinary History: Reports: Chronic Renal Insuffiency, UTI, Recurrent Other Genitourinary History: no uti recently 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 History: Reports: Other SANITATION SUPERVISOR History: hysterectomy Musculoskeletal History: Reports: Arthritis, Back Pain, Chronic, Neck Pain, Chronic Neurological History: Reports: Migraines Psychiatric History: Reports: Anxiety, Depression Endocrine/Metabolic History: Reports: Diabetes, Type II Hematologic History: Reports: Anemia Oncologic (Cancer) History: Reports: Lung Dermatologic History: Reports: Other (See Below) Other Dermatologic History: bruises easily - Infectious Disease History Infectious Disease History: Reports: Chicken Pox, 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, Other - Past Surgical History HEENT Surgical History: Reports: Other (See Below) GI Surgical History: Reports: Hernia, Abdominal Oncologic Surgical History: Reports: Other (See Below) Other Oncologic Surgeries/Procedures: hx biopsy of lung for cancer diagnosis Social & Family History - Family History Family Medical History: Noncontributory Cardiac: Reports: Hypertension Respiratory: Reports: Asthma, COPD Psychiatric: Reports: Anxiety - Caffeine Use Caffeine Use: Reports: None - Living Situation & Occupation Living situation: Reports: Single, with Significant Other Occupation: Disabled ED ROS GENERAL - Review of Systems Review Of Systems: Comprehensive ROS is negative, except as noted in HPI. ED EXAM, GENERAL - Physical Exam Exam: See Below Exam Limited By: No Limitations General Appearance: Alert, Mild Distress Eye Exam: Right Eye: Other (erythema of lid and conjunctivitis), Bilateral Eye: EOMI, PERRL Ears: Normal External Exam Nose: Normal Inspection, Normal Mucosa, No Blood Throat/Mouth: Normal Inspection Head: Atraumatic, Normocephalic Neck: Normal Inspection Respiratory/Chest: No Respiratory Distress Cardiovascular: Normal Peripheral Pulses Course - Vital Signs Last Recorded V/S: Last Vital Signs Temp 36.3 C 07/09/19 17:54 Pulse 103 H 07/09/19 17:54 Resp 20 07/09/19 17:54 BP 113/60 07/09/19 17:54 Pulse Ox 95 07/09/19 17:54 - Orders/Labs/Meds Meds: Medications Discontinued Medications Generic Name Dose Route Start Last Admin Trade Name Freq PRN Reason Stop Dose Admin Cephalexin 10,000 mg 07/09/19 17:30 Keflex .ROUTE 07/09/19 17:31 .STK-MED ONE Ciprofloxacin 2.5 ml 07/09/19 17:30 Ciloxan 0.3% Oph Soln .ROUTE 07/09/19 17:31 .STK-MED ONE Departure - Departure Time of Disposition: 17:45 Disposition: Home, Self-Care 01 Condition: Good Clinical Impression: Infected eye lid Conjunctivitis Qualifiers: Conjunctivitis type: acute Acute conjunctivitis type: bacterial Laterality: right Qualified Code(s): H10.31 - Unspecified acute conjunctivitis, right eye - Discharge Information Instructions: Bacterial Conjunctivitis, [id number] Referrals: PCP,None [Primary Care Provider] - Forms: ED Department Discharge Care Plan Goals: Take medications as prescribed. Wash hands often. Return to hospital or clinic with any questions or concerns or if symptoms worsen. Sepsis Event Note - Evaluation Sepsis Screening Result: No Definite Risk - Focused Exam Date Exam was Performed: 07/13/19 Time Exam was Performed: 16:06 - Problem List & Annotations (1) Conjunctivitis SNOMED Code(s): 1745914 Code(s): H10.9 - UNSPECIFIED CONJUNCTIVITIS Status: Acute Priority: High Qualifiers: Conjunctivitis type: acute Acute conjunctivitis type: bacterial Laterality: right Qualified Code(s): H10.31 - Unspecified acute conjunctivitis , right eye (2) Infected eye lid SNOMED Code(s): 773477188 Code(s): H01.9 - UNSPECIFIED INFLAMMATION OF EYELID Status: Acute Priority: High - Problem List Review Problem List Initiated/Reviewed/Updated: Yes - Assessment/Plan Plan: Counseled on antibiotics use and eye drops. Discussed side effects and close fu. Rtc as directed and return to ER if symptoms persist or worsen.
== END 2019-07-09 17:53 | disposition home or self-care (01) ==
LOC: LB.ED 17:15
DX: H10.89 Other conjunctivitis (principal); H01.9 Unspecified inflammation of eyelid; I13.0 Hypertensive heart and chronic kidney disease with heart failure and stage 1 through stage 4 chronic kidney disease, or unspecified chronic kidney disease; E11.22 Type 2 diabetes mellitus with diabetic chronic kidney disease; N18.9 Chronic kidney disease, unspecified; I50.9 Heart failure, unspecified; K21.9 Gastro-esophageal reflux disease without esophagitis; M19.90 Unspecified osteoarthritis, unspecified site; F41.9 Anxiety disorder, unspecified; F32.9 Major depressive disorder, single episode, unspecified; Z79.4 Long term (current) use of insulin; Z88.2 Allergy status to sulfonamides; Z91.013 Allergy to seafood; Z88.8 Allergy status to other drugs, medicaments and biological substances; Z88.0 Allergy status to penicillin; Z79.899 Other long term (current) drug therapy; Z79.01 Long term (current) use of anticoagulants
CPT/HCPCS: 99282; A9270-GY

== ENCOUNTER 2019-07-19 11:39 | Emergency (ER) | payer MEDICARE, MEDICAID ==
[2019-07-19 12:47] VITALS: BP 113/61; PULSE 86
[2019-07-19] MEDS: Morphine 2 MG/ML Syringe IM ONE (13:02)
--- NOTE | 2019-07-19 13:20 | EDM.PDOC ---
ED HPI GENERAL MEDICAL PROBLEM - General Chief Complaint: Upper Extremity Injury/Pain Stated Complaint: FALL, BROKE RIBS? Time Seen by Provider: 07/19/19 12:30 Source of Information: Reports: Patient History Limitations: Reports: No Limitations - History of Present Illness INITIAL COMMENTS - FREE TEXT/NARRATIVE: This is a 64yo F here for a recent fall and injury to the right ribs. She feels that they may be broken. She denies any other injuries but may have landed on her shoulder and right hip. Onset: Sudden Location: Reports: Pelvis, Upper Extremity, Right, Lower Extremity, Right Quality: Reports: Ache Severity: Moderate Improves with: Reports: None Worsens with: Reports: Movement Associated Symptoms: Reports: No Other Symptoms right side from fall Pain Score (Numeric/FACES): 9 - Related Data Allergies Allergy/AdvReac Type Severity Reaction Status Date / Time Penicillins Allergy Unknown Edema Verified 06/22/19 16:09 shellfish derived Allergy Unknown Anaphylactic Verified 06/22/19 16:09 Shock Sulfa (Sulfonamide Allergy Unknown Edema Verified 06/22/19 16:09 Antibiotics) clonidine AdvReac Intermediate Lethargy Verified 06/22/19 16:09 klonopin AdvReac Lethargy Uncoded 10/30/18 03:45 Home Meds: Home Meds guaiFENesin [Mucinex] 1,200 mg PO BID 10/02/14 [History] Omeprazole 20 mg PO DAILY 11/04/14 [History] Desvenlafaxine [Pristiq] 50 mg PO QPM 01/03/16 [History] traMADol [Ultram] 50 mg PO TID 01/03/16 [History] Melatonin 5 mg PO BEDTIME 06/22/16 [History] Multivitamins [Childrens Chewable Vitamin] 1 tab PO DAILY@1200 06/22/16 [History ] Digoxin [Lanoxin] 125 mcg PO DAILY tablet 04/01/17 [Rx] Insulin Aspart [NovoLOG] 0 unit SUBCUT TIDMEALS pen 04/01/17 [Rx] Formoterol Fumarate [Perforomist] 1 vial INH BID 09/27/17 [History] Furosemide 40 mg PO DAILY 09/27/17 [History] Montelukast Sodium 10 mg PO PCLUNCH 09/27/17 [History] Roflumilast [Daliresp] 500 mcg PO DAILY 09/27/17 [History] Metoprolol Tartrate [Lopressor] 25 mg PO Q12HR 30 Days #60 tab 09/29/17 [Rx] QUEtiapine [SEROquel] 25 mg PO BEDTIME 06/05/18 [History] Cholecalciferol (Vitamin D3) [Vitamin D3] 2,000 unit PO DAILY 02/16/19 [History] Insulin Glargine,Hum.Rec.Anlog [Basaglar Kwikpen U-100] 18 units SQ ACBREAKFAST 02/16/19 [History] Insulin Glargine,Hum.Rec.Anlog [Basaglar Kwikpen U-100] 18 units SQ BEDTIME [History] Nystatin 1 dose PO TID 02/16/19 [History] diphenhydrAMINE HCl [Banophen] 25 mg PO BID 02/16/19 [History] predniSONE [Prednisone] 10 mg PO DAILY #28 tablet 02/16/19 [Rx] Diltiazem HCl [Cartia Xt] 240 mg PO DAILY 03/05/19 [History] QUEtiapine [SEROquel] 12.5 mg PO DAILY 03/05/19 [History] hydrOXYzine HCL [hydrOXYzine] 25 mg PO TID PRN 03/05/19 [History] Albuterol [Proventil Neb Soln] 2.5 mg NEB Q6H PRN neb 03/06/19 [Rx] Albuterol [Ventolin HFA] 8 gm INH Q4H PRN inhaler 03/06/19 [Rx] Budesonide [Pulmicort] 0.5 mg NEB BID neb 03/06/19 [Rx] Umeclidinium [place] [Incruse Ellipta] 1 puff IH DAILY 03/06/19 [Rx] Warfarin Sodium [Coumadin] 8 mg PO DAILY@1800 03/06/19 [Rx] Fluconazole [Diflucan] 150 mg PO ONETIME #2 tab 06/29/19 [Rx] Past Medical History HEENT History: Reports: Allergic Rhinitis, Hard of Hearing, Impaired Vision, Other (See Below) Other HEENT History: trach placed x 2 years ago Cardiovascular History: Reports: Heart Failure, Hypertension, Other (See Below) Other Cardiovascular History: a flutter Respiratory History: Reports: SOB Other Respiratory History: SOB excessive plegm Gastrointestinal History: Reports: Chronic Constipation, GERD Genitourinary History: Reports: Chronic Renal Insuffiency, UTI, Recurrent Other Genitourinary History: no uti recently [employer]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 Musculoskeletal History: Reports: Arthritis, Back Pain, Chronic, Neck Pain, Chronic Neurological History: Reports: Migraines Psychiatric History: Reports: Anxiety, Depression Endocrine/Metabolic History: Reports: Diabetes, Type II Hematologic History: Reports: Anemia Oncologic (Cancer) History: Reports: Lung Dermatologic History: Reports: Other (See Below) Other Dermatologic History: bruises easily - Infectious Disease History Infectious Disease History: Reports: Chicken Pox, 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, Other - Past Surgical History HEENT Surgical History: Reports: Other (See Below) GI Surgical History: Reports: Hernia, Abdominal Oncologic Surgical History: Reports: Other (See Below) Other Oncologic Surgeries/Procedures: hx biopsy of lung for cancer diagnosis Social & Family History - Family History Family Medical History: Noncontributory Cardiac: Reports: Hypertension Respiratory: Reports: Asthma, COPD Psychiatric: Reports: Anxiety - Caffeine Use Caffeine Use: Reports: None - Living Situation & Occupation Living situation: Reports: Single, with Significant Other Occupation: Disabled Review of Systems - Review of Systems Review Of Systems: Comprehensive ROS is negative, except as noted in HPI. ED EXAM, GENERAL - Physical Exam Exam: See Below Exam Limited By: No Limitations General Appearance: Alert, WD/WN, Mild Distress Eye Exam: Bilateral Eye: EOMI, PERRL Ears: Normal External Exam Nose: Normal Inspection Throat/Mouth: Normal Inspection Head: Atraumatic, Normocephalic Neck: Normal Inspection Respiratory/Chest: No Respiratory Distress, Lungs Clear, Normal Breath Sounds Cardiovascular: Normal Peripheral Pulses, Regular Rate, Rhythm Peripheral Pulses: 2+: Dorsalis Pedis (L), Dorsalis Pedis (R) Extremities: Arm Pain, Leg Pain Neurological: Alert, Oriented, CN II-XII Intact Psychiatric: Normal Affect, Normal Mood Skin Exam: Warm, Dry, Intact Course - Vital Signs Last Recorded V/S: Last Vital Signs Temp 37.1 C 07/19/19 12:30 Pulse 86 07/19/19 12:30 Resp 16 07/19/19 12:30 BP 113/61 07/19/19 12:30 Pulse Ox 100 07/19/19 12:30 - Orders/Labs/Meds Orders: Active Orders 24 hr Category Date Time Status Humerus Rt [CR] Stat Exams 07/19/19 11:50 Taken Pelvis 1V or 2V [CR] Stat Exams 07/19/19 11:50 Taken Ribs 2V w Chest Rt [CR] Stat Exams 07/19/19 11:50 Taken Meds: Medications Discontinued Medications Generic Name Dose Route Start Last Admin Trade Name Dilma PRN Reason Stop Dose Admin Morphine Sulfate 4 mg 07/19/19 12:58 Morphine IM 07/19/19 12:59 ONETIME ONE Morphine Sulfate Confirm 07/19/19 13:09 Morphine Administered 07/19/19 13:10 Dose 4 mg .ROUTE .STK-MED ONE Morphine Sulfate Confirm 07/19/19 13:10 Morphine Administered 07/19/19 13:11 Dose 4 mg .ROUTE .STK-MED ONE Departure - Departure Time of Disposition: 13:15 Disposition: Home, Self-Care 01 Condition: Good Clinical Impression: Rib pain on right side Fall Qualifiers: Encounter type: initial encounter Qualified Code(s): W19.XXXA - Unspecified fall, initial encounter - Discharge Information Referrals: PCP,None [Primary Care Provider] - Forms: ED Department Discharge Care Plan Goals: Rest and allow ribs to heal. MD Quo suspects bruising of the ribs at this time. He will get you a prescription for pain medication, fill this and take as ordered. Ice may be beneficial, but do this intermittently to not damage the skin from the cold temperature. Ribs may be tender for 2-4 weeks but should improve each day. Contact clinic or hospital if you have any questions or if pain gets worse. In 10 days if you are still having this much pain, contact the clinic and another X-ray will be completed. [phone] Sepsis Event Note - Evaluation Sepsis Screening Result: No Definite Risk - Focused Exam Vital Signs: Vital Signs Temp Pulse Resp BP Pulse Ox 07/19/19 12:30 37.1 C 86 16 113/61 100 Date Exam was Performed: 07/19/19 Time Exam was Performed: 13:12 - Problem List & Annotations (1) Fall SNOMED Code(s): 0771023, 078563468 Code(s): W19.XXXA - UNSPECIFIED FALL, INITIAL ENCOUNTER Status: Acute Priority: High Current Visit: Yes Qualifiers: Encounter type: initial encounter Qualified Code(s): W19.XXXA - Unspecified fall, initial encounter (2) Rib pain on right side SNOMED Code(s): 448115360 Code(s): R07.81 - PLEURODYNIA Status: Acute Priority: High Current Visit: Yes - Problem List Review Problem List Initiated/Reviewed/Updated: Yes - My Orders Last 24 Hours: My Active Orders 07/19/19 11:50 Humerus Rt [CR] Stat Pelvis 1V or 2V [CR] Stat Ribs 2V w Chest Rt [CR] Stat - Assessment/Plan Admission H&P: Please use this note as an admission H&P Last 24 Hours: My Active Orders 07/19/19 11:50 Humerus Rt [CR] Stat Pelvis 1V or 2V [CR] Stat Ribs 2V w Chest Rt [CR] Stat Plan: Counseled on falling and prevention. Discussed management and pain control. Discussed addiction and close f/u. Discussed f/u xray as needed if symptoms persist. Discussed rtc as routine and as needed.
[2019-07-19] MEDS: Morphine 2 MG/ML Syringe ONE (14:47)
--- NOTE | 2019-07-19 17:14 | CR ---
Date of Service: 07/19/19 Clinical Data: Pain PELVIS AND BOTH HIPS: No priors. There is diffuse osteopenia. There are mild osteoarthritic changes involving both hip joints. There are degenerative changes involving the SI joints and symphysis pubis. There is an intramedullary marianna in the proximal right femur. There are surgical clips in the left groin region. No acute abnormalities. No focal lytic or blastic bone lesions. [id number] [facility]
--- NOTE | 2019-07-19 17:18 | CR ---
Date of Service: 07/19/19 Clinical Data: Pain RIGHT HUMERUS: There is diffuse osteopenia. No acute fracture or dislocation. No lytic or blastic bone lesions. There is marked narrowing of the subacromial space and there is erosion of the undersurface of the acromion process consistent with a chronic rotator cuff tear. No other significant findings. [id number] [facility]
--- NOTE | 2019-07-19 17:23 | CR ---
Date of Service: 07/19/19 Clinical Data: Pain after fall PA CHEST AND RIGHT RIBS: Comparison is made to a prior exam dated 06/22/19. The tracheostomy tube remains unchanged in position. The heart size is within normal limits. The aorta is calcified and ectatic. The mild pulmonary vascular congestion on the prior exam has improved. The density in the right lung base on the prior exam has nearly completely cleared. There is a subtle density in the region of the minor fissure on the right which is probably subsegmental atelectasis. The lungs are otherwise clear. No pneumothorax. No pleural effusions. No rib abnormalities. No displaced fractures. [id number] [facility]
== END 2019-07-19 13:15 | disposition home or self-care (01) ==
LOC: LB.ED 11:39
DX: R07.81 Pleurodynia (principal); I13.0 Hypertensive heart and chronic kidney disease with heart failure and stage 1 through stage 4 chronic kidney disease, or unspecified chronic kidney disease; E11.22 Type 2 diabetes mellitus with diabetic chronic kidney disease; N18.9 Chronic kidney disease, unspecified; I50.9 Heart failure, unspecified; M19.90 Unspecified osteoarthritis, unspecified site; F41.9 Anxiety disorder, unspecified; F32.9 Major depressive disorder, single episode, unspecified; K21.9 Gastro-esophageal reflux disease without esophagitis; Z88.0 Allergy status to penicillin; Z88.2 Allergy status to sulfonamides; Z88.8 Allergy status to other drugs, medicaments and biological substances; Z91.013 Allergy to seafood; Z79.899 Other long term (current) drug therapy; Z79.4 Long term (current) use of insulin; Z79.01 Long term (current) use of anticoagulants; W19.XXXA Unspecified fall, initial encounter; Y92.009 Unspecified place in unspecified non-institutional (private) residence as the place of occurrence of the external cause
CPT/HCPCS: 71101; 72170; 73060; 96372; 99283; A0425; A0429; J2270

== ENCOUNTER 2019-07-31 08:46 | Inpatient (IN) | payer MEDICARE, MEDICAID ==
[2019-07-31] MEDS ORDERED: Morphine 2 MG/ML Syringe IVPUSH ONE (08:53)
[2019-07-31] MEDS ORDERED: Sodium Chloride 0.9% 10 ML Syringe FLUSH PRN (08:54)
--- NOTE | 2019-07-31 08:56 | EDM.PDOC ---
ED HPI GENERAL MEDICAL PROBLEM - General Chief Complaint: Back Pain or Injury Stated Complaint: UNKNOWN Time Seen by Provider: 07/31/19 08:50 Source of Information: Reports: Patient History Limitations: Reports: No Limitations - History of Present Illness INITIAL COMMENTS - FREE TEXT/NARRATIVE: This is a 64yo F here for a fall yesterday morning. She notes pain all over. She has chest pain, shortness of breath, pain all over the body. She denies fever but feels fatigued and tired. Onset: Unknown/Unsure Location: Reports: Chest, Back, Pelvis, Generalized Quality: Reports: Ache Improves with: Reports: None Worsens with: Reports: None Associated Symptoms: Reports: Chest Pain, Malaise, Shortness of Breath, Weakness Right Arm Pain Score (Numeric/FACES): 5 Right Thoracic Pain Score (Numeric/FACES): 6 - Related Data Allergies Allergy/AdvReac Type Severity Reaction Status Date / Time Penicillins Allergy Unknown Edema Verified 07/31/19 10:30 shellfish derived Allergy Unknown Anaphylactic Verified 07/31/19 10:30 Shock Sulfa (Sulfonamide Allergy Unknown Edema Verified 07/31/19 10:30 Antibiotics) clonidine AdvReac Intermediate Lethargy Verified 07/31/19 10:30 klonopin AdvReac Lethargy Uncoded 07/31/19 10:30 Home Meds: Home Meds guaiFENesin [Mucinex] 1,200 mg PO BID 10/02/14 [History] Omeprazole 20 mg PO DAILY 11/04/14 [History] Desvenlafaxine [Pristiq] 50 mg PO QPM 01/03/16 [History] traMADol [Ultram] 50 mg PO TID 01/03/16 [History] Melatonin 5 mg PO BEDTIME 06/22/16 [History] Multivitamins [Childrens Chewable Vitamin] 1 tab PO DAILY@1200 06/22/16 [History ] Digoxin [Lanoxin] 125 mcg PO DAILY tablet 04/01/17 [Rx] Insulin Aspart [NovoLOG] 0 unit SUBCUT TIDMEALS pen 04/01/17 [Rx] Formoterol Fumarate [Perforomist] 1 vial INH BID 09/27/17 [History] Furosemide 40 mg PO DAILY 09/27/17 [History] Montelukast Sodium 10 mg PO PCLUNCH 09/27/17 [History] Roflumilast [Daliresp] 500 mcg PO DAILY 09/27/17 [History] Metoprolol Tartrate [Lopressor] 25 mg PO Q12HR 30 Days #60 tab 09/29/17 [Rx] QUEtiapine [SEROquel] 25 mg PO BEDTIME 06/05/18 [History] Cholecalciferol (Vitamin D3) [Vitamin D3] 2,000 unit PO DAILY 02/16/19 [History] Insulin Glargine,Hum.Rec.Anlog [Basaglar Kwikpen U-100] 18 units SQ BEDTIME [History] Nystatin 1 dose PO TID 02/16/19 [History] diphenhydrAMINE HCl [Banophen] 25 mg PO BID 02/16/19 [History] predniSONE [Prednisone] 10 mg PO DAILY #28 tablet 02/16/19 [Rx] Diltiazem HCl [Cartia Xt] 240 mg PO DAILY 03/05/19 [History] QUEtiapine [SEROquel] 12.5 mg PO DAILY 03/05/19 [History] hydrOXYzine HCL [hydrOXYzine] 25 mg PO TID PRN 03/05/19 [History] Albuterol [Proventil Neb Soln] 2.5 mg NEB Q6H PRN neb 03/06/19 [Rx] Albuterol [Ventolin HFA] 8 gm INH Q4H PRN inhaler 03/06/19 [Rx] Budesonide [Pulmicort] 0.5 mg NEB BID neb 03/06/19 [Rx] Umeclidinium Reading [Incruse Ellipta] 1 puff IH DAILY 03/06/19 [Rx] Warfarin Sodium [Coumadin] 8 mg PO DAILY@1800 03/06/19 [Rx] Fluconazole [Diflucan] 150 mg PO ONETIME #2 tab 06/29/19 [Rx] Past Medical History HEENT History: Reports: Allergic Rhinitis, Hard of Hearing, Impaired Vision, Other (See Below) Other HEENT History: trach placed x 2 years ago Cardiovascular History: Reports: Heart Failure, Hypertension, Other (See Below) Other Cardiovascular History: a flutter Respiratory History: Reports: SOB Other Respiratory History: SOB excessive plegm Gastrointestinal History: Reports: Chronic Constipation, GERD Genitourinary History: Reports: Chronic Renal Insuffiency, UTI, Recurrent Other Genitourinary History: no uti recently 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 IT BUSINESS ANALYST History: hysterectomy Musculoskeletal History: Reports: Arthritis, Back Pain, Chronic, Neck Pain, Chronic Neurological History: Reports: Migraines Psychiatric History: Reports: Anxiety, Depression Endocrine/Metabolic History: Reports: Diabetes, Type II Hematologic History: Reports: Anemia Oncologic (Cancer) History: Reports: Lung Dermatologic History: Reports: Other (See Below) Other Dermatologic History: bruises easily - Infectious Disease History Infectious Disease History: Reports: Chicken Pox, 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, Other - Past Surgical History HEENT Surgical History: Reports: Other (See Below) GI Surgical History: Reports: Hernia, Abdominal Oncologic Surgical History: Reports: Other (See Below) Other Oncologic Surgeries/Procedures: hx biopsy of lung for cancer diagnosis Social & Family History - Family History Family Medical History: Noncontributory Cardiac: Reports: Hypertension Respiratory: Reports: Asthma, COPD Psychiatric: Reports: Anxiety - Caffeine Use Caffeine Use: Reports: None - Living Situation & Occupation Living situation: Reports: Single, with Significant Other Occupation: Disabled ED ROS GENERAL - Review of Systems Review Of Systems: Comprehensive ROS is negative, except as noted in HPI. ED EXAM, GENERAL - Physical Exam Exam: See Below Exam Limited By: No Limitations General Appearance: Alert, WD/WN, Mild Distress Eye Exam: Bilateral Eye: EOMI Ears: Normal External Exam Nose: Normal Inspection Throat/Mouth: Normal Inspection Head: Atraumatic, Normocephalic Neck: Normal Inspection Respiratory/Chest: Decreased Breath Sounds, Wheezing Cardiovascular: Normal Peripheral Pulses Peripheral Pulses: 2+: Dorsalis Pedis (L), Dorsalis Pedis (R) GI/Abdominal: Normal Bowel Sounds Extremities: Normal Inspection Course - Vital Signs Last Recorded V/S: Last Vital Signs Temp 37.1 C 07/31/19 12:11 Pulse 131 H 07/31/19 12:11 Resp 18 07/31/19 12:11 BP 152/84 H 07/31/19 12:11 Pulse Ox 91 L 07/31/19 12:11 - Orders/Labs/Meds Orders: Active Orders 24 hr Category Date Time Status EKG Documentation Completion [RC] ASDIRECTED Care 07/31/19 08:51 Active Pneumonia Education [RC] DAILY Care 07/31/19 11:14 Active Cervical Spine wo Cont [CT] Stat Exams 07/31/19 09:30 Taken Lumbar Spine wo Cont [CT] Stat Exams 07/31/19 09:30 Taken CULTURE BLOOD [BC] Stat Lab 07/31/19 11:20 Received CULTURE BLOOD [BC] Urgent Lab 07/31/19 12:10 Received CULTURE SPUTUM + SMEAR [RM] Urgent Lab 07/31/19 11:14 Ordered Sodium Chloride 0.9% [Normal Saline] 1,000 ml Med 07/31/19 09:00 Active IV ASDIRECTED Sodium Chloride 0.9% [Saline Flush] Med 07/31/19 08:54 Active 10 ml FLUSH ASDIRECTED PRN Peripheral IV Insertion Adult [OM.PC] Routine Oth 07/31/19 08:54 Ordered Medication Orders Albuterol (Proventil Neb Soln) 2.5 mg NEB Q6H PRN PRN Reason: Shortness of Breath Albuterol (Ventolin Hfa) 8 gm INH Q4H PRN PRN Reason: Shortness of Breath Budesonide (Pulmicort) 0.5 mg NEB BID MATTHEW Ceftriaxone Sodium (Rocephin) 1 gm IVPUSH Q24H [facility] Last Admin: 07/31/19 12:24 Dose: 1 gm Desvenlafaxine Succinate (Pristiq) 50 mg PO QPM MATTHEW Digoxin (Lanoxin) 125 mcg PO DAILY MATTHEW Diphenhydramine HCl (Benadryl) 25 mg PO BID MATTHEW Furosemide (Lasix) 40 mg PO DAILY MATTHEW Guaifenesin (Mucinex) 1,200 mg PO BID MATTHEW Hydroxyzine HCl (Atarax) 25 mg PO TID PRN PRN Reason: Anxiety Sodium Chloride (Normal Saline) 1,000 mls @ 250 mls/hr IV ASDIRECTED [facility] Last Admin: 07/31/19 09:57 Dose: 250 mls/hr Azithromycin 500 mg/ Sodium (Chloride) 250 mls @ 250 mls/hr IV Q24H [facility] Last Admin: 07/31/19 12:31 Dose: 250 mls/hr Insulin Aspart (Novolog) 10 unit SUBCUT TIDMEALS [facility] Insulin Glargine (Lantus Solostar) 18 units SUBCUT BEDTIME [facility] Metoprolol Tartrate (Lopressor) 25 mg PO Q12HR MATTHEW Montelukast Sodium (Singulair) 10 mg PO PCLUNCH MATTHEW Multivitamins/Minerals/Vitamin C (Childrens Chewable Vitamin) 1 tab PO DAILY@ 1200 MATTHEW Non-Formulary Medication (Cholecalciferol (Vitamin D3) [Vitamin D3]) 2,000 unit PO DAILY MATTHEW Non-Formulary Medication (Diltiazem Hcl [Cartia Xt]) 240 mg PO DAILY MATTHEW Non-Formulary Medication (Formoterol Fumarate [Perforomist]) 1 vial INH BID MATTHEW Non-Formulary Medication (Melatonin [Melatonin]) 5 mg PO BEDTIME MATTHEW Non-Formulary Medication (Umeclidinium Reading [Incruse Ellipta]) 1 puff IH DAILY MATTHEW Non-Formulary Medication (Warfarin Sodium [Coumadin]) 8 mg PO DAILY@1800 MATTHEW Nystatin (Mycostatin) ml PO TID MATTHEW Omeprazole (Omeprazole) 20 mg PO DAILY MATTHEW Prednisone (Prednisone) 10 mg PO DAILY MATTHEW Quetiapine Fumarate (Seroquel) 12.5 mg PO DAILY [facility] Quetiapine Fumarate (Seroquel) 25 mg PO BEDTIME MATTHEW Roflumilast (Daliresp) 500 mcg PO DAILY [facility] Sodium Chloride (Saline Flush) 10 ml FLUSH ASDIRECTED PRN PRN Reason: Keep Vein Open Tramadol HCl (Ultram) 50 mg PO TID [facility] Labs: Laboratory Tests 07/31/19 07/31/19 07/31/19 Range/Units 09:00 09:00 09:00 WBC 16.4 H (4.0-11.0) K/uL RBC 4.23 (3.80-5.80) M/uL Hgb 11.5 (11.5-16.5) g/dL Hct 39.2 (37.0-47.0) % MCV 93 (76-96) fL MCH 27.2 (27.0-32.0) pg MCHC 29.3 L (31.0-35.0) g/dL RDW 15.2 (11.0-16.0) % Plt Count 297 (150-500) K/uL MPV 9.4 (6.0-10.0) fL Neut % (Auto) 83.9 H (45.0-70.0) % Lymph % (Auto) 4.9 L (20.0-40.0) % Lincoln % (Auto) 10.8 H (3.0-10.0) % Eos % (Auto) 0.2 L (1.0-5.0) % Baso % (Auto) 0.2 (0.0-0.5) % Neut # (Auto) 13.76 H (2.00-7.50) K/uL Lymph # (Auto) 0.81 L (1.50-4.00) K/uL Lincoln # (Auto) 1.78 H (0.20-0.80) K/uL Eos # (Auto) 0.04 (0.04-0.40) K/uL Baso # (Auto) 0.03 (0.02-0.10) K/uL PT 30.9 H (9.0-11.5) sec INR 3.4 (1.0-3.5) VBG pH (7.31-7.41) Sodium 143 (136-145) mmol/L Potassium 4.5 (3.5-5.1) mmol/L Chloride 95 L (98-107) mmol/L Carbon Dioxide 47.6 H (21.0-32.0) mmol/L Anion Gap 4.9 L (5.0-15.0) mmol/L BUN 21 D (8-26) mg/dL Creatinine 1.02 D (0.55-1.02) mg/dL Est Cr Clr Drug Dosing TNP Estimated GFR (MDRD) 55 L (>60) MLS/MIN BUN/Creatinine Ratio 20.6 (6-25) Glucose 178 H (74-100) mg/dL Lactic Acid (0.90-1.70) mmol/L Calcium 8.8 (8.5-10.1) mg/dL Total Bilirubin 0.3 (0.0-1.0) mg/dL AST 26 (15-37) U/L ALT 19 (12-78) U/L Alkaline Phosphatase 107 (46-116) U/L Troponin I < 0.017 (0.000-0.060) ng/mL B-Natriuretic Peptide (0-125) pg/mL Total Protein 6.4 (6.4-8.2) g/dL Albumin 2.2 L (3.4-5.0) g/dL Globulin 4.2 (2.2-4.2) g/dL Albumin/Globulin Ratio 0.5 L (0.8-2.0) TSH, Ultra Sensitive 0.259 L D (0.358-3.740) uIU/mL 07/31/19 07/31/19 07/31/19 Range/Units 09:00 09:00 10:15 WBC (4.0-11.0) K/uL RBC (3.80-5.80) M/uL Hgb (11.5-16.5) g/dL Hct (37.0-47.0) % MCV (76-96) fL MCH (27.0-32.0) pg MCHC (31.0-35.0) g/dL RDW (11.0-16.0) % Plt Count (150-500) K/uL MPV (6.0-10.0) fL Neut % (Auto) (45.0-70.0) % Lymph % (Auto) (20.0-40.0) % Lincoln % (Auto) (3.0-10.0) % Eos % (Auto) (1.0-5.0) % Baso % (Auto) (0.0-0.5) % Neut # (Auto) (2.00-7.50) K/uL Lymph # (Auto) (1.50-4.00) K/uL Lincoln # (Auto) (0.20-0.80) K/uL Eos # (Auto) (0.04-0.40) K/uL Baso # (Auto) (0.02-0.10) K/uL PT (9.0-11.5) sec INR (1.0-3.5) VBG pH 7.47 H (7.31-7.41) Sodium (136-145) mmol/L Potassium (3.5-5.1) mmol/L Chloride (98-107) mmol/L Carbon Dioxide (21.0-32.0) mmol/L Anion Gap (5.0-15.0) mmol/L BUN (8-26) mg/dL Creatinine (0.55-1.02) mg/dL Est Cr Clr Drug Dosing Estimated GFR (MDRD) (>60) MLS/MIN BUN/Creatinine Ratio (6-25) Glucose (74-100) mg/dL Lactic Acid 1.65 (0.90-1.70) mmol/L Calcium (8.5-10.1) mg/dL Total Bilirubin (0.0-1.0) mg/dL AST (15-37) U/L ALT (12-78) U/L Alkaline Phosphatase (46-116) U/L Troponin I (0.000-0.060) ng/mL B-Natriuretic Peptide 1429 H D (0-125) pg/mL Total Protein (6.4-8.2) g/dL Albumin (3.4-5.0) g/dL Globulin (2.2-4.2) g/dL Albumin/Globulin Ratio (0.8-2.0) TSH, Ultra Sensitive (0.358-3.740) uIU/mL Meds: Medications Generic Name Dose Route Start Last Admin Trade Name Freq PRN Reason Stop Dose Admin Albuterol 2.5 mg 07/31/19 13:32 Proventil Neb Soln NEB Q6H PRN Shortness of Breath Albuterol 8 gm 07/31/19 13:32 Ventolin Hfa INH Q4H PRN Shortness of Breath Budesonide 0.5 mg 07/31/19 20:00 Pulmicort NEB BID MATTHEW Ceftriaxone Sodium 1 gm 07/31/19 11:30 07/31/19 12:24 Rocephin IVPUSH 1 gm Q24H MATTHEW Administration Desvenlafaxine Succinate 50 mg 07/31/19 20:00 Pristiq PO QPM MATTHEW Digoxin 125 mcg 08/01/19 08:00 Lanoxin PO DAILY MATTHEW Diphenhydramine HCl 25 mg 07/31/19 20:00 Benadryl PO BID MATTHEW Furosemide 40 mg 08/01/19 08:00 Lasix PO DAILY MATTHEW Guaifenesin 1,200 mg 07/31/19 20:00 Mucinex PO BID MATTHEW Hydroxyzine HCl 25 mg 07/31/19 13:32 Atarax PO TID PRN Anxiety Sodium Chloride 1,000 mls @ 250 mls/hr 07/31/19 09:00 07/31/19 09:57 Normal Saline IV 250 mls/hr ASDIRECTED MATTHEW Administration Azithromycin 500 mg/ Sodium 250 mls @ 250 mls/hr 07/31/19 11:30 07/31/19 12: 31 Chloride IV 250 mls/hr Q24H MATTHEW Administration Insulin Aspart 10 unit 07/31/19 18:00 Novolog SUBCUT TIDMEALS [facility] Insulin Glargine 18 units 07/31/19 20:00 Lantus Solostar SUBCUT BEDTIME [facility] Metoprolol Tartrate 25 mg 07/31/19 20:00 Lopressor PO Q12HR [facility] Montelukast Sodium 10 mg 07/31/19 14:00 Singulair PO PCLUNCH [facility] Multivitamins/Minerals/Vitamin C 1 tab 08/01/19 12:00 Childrens Chewable Vitamin PO DAILY@1200 [facility] Non-Formulary Medication 2,000 unit 08/01/19 08:00 Cholecalciferol (Vitamin D3) [Vitamin D3] PO DAILY [facility] Non-Formulary Medication 240 mg 08/01/19 08:00 Diltiazem Hcl [Cartia Xt] PO DAILY [facility] Non-Formulary Medication 1 vial 07/31/19 20:00 Formoterol Fumarate [Perforomist] INH BID [facility] Non-Formulary Medication 5 mg 07/31/19 20:00 Melatonin [Melatonin] PO BEDTIME [facility] Non-Formulary Medication 1 puff 08/01/19 08:00 Umeclidinium Reading [Incruse Ellipta] IH DAILY [facility] Non-Formulary Medication 8 mg 07/31/19 18:00 Warfarin Sodium [Coumadin] PO DAILY@1800 [facility] Nystatin ml 07/31/19 14:00 Mycostatin PO TID [facility] Omeprazole 20 mg 08/01/19 08:00 Omeprazole PO DAILY [facility] Prednisone 10 mg 08/01/19 08:00 Prednisone PO DAILY [facility] Quetiapine Fumarate 12.5 mg 08/01/19 08:00 Seroquel PO DAILY [facility] Quetiapine Fumarate 25 mg 07/31/19 20:00 Seroquel PO BEDTIME [facility] Roflumilast 500 mcg 08/01/19 08:00 Daliresp PO DAILY [facility] Sodium Chloride 10 ml 07/31/19 08:54 Saline Flush FLUSH ASDIRECTED PRN Keep Vein Open Tramadol HCl 50 mg 07/31/19 14:00 Ultram PO TID [facility] Discontinued Medications Generic Name Dose Route Start Last Admin Trade Name Freq PRN Reason Stop Dose Admin Morphine Sulfate 2 mg 07/31/19 08:53 07/31/19 09:12 Morphine IVPUSH 07/31/19 08:54 2 mg ONETIME ONE Administration Morphine Sulfate Confirm 07/31/19 09:10 07/31/19 12:17 Morphine Administered 07/31/19 09:11 Not Given Dose 2 mg .ROUTE .STK-MED ONE Departure - Departure Time of Disposition: 12:00 Disposition: Admitted As Inpatient 67 Condition: Fair Clinical Impression: Atrial fibrillation with RVR Pneumonia Qualifiers: Pneumonia type: due to unspecified organism Laterality: right Lung location: lower lobe of lung Qualified Code(s): J18.9 - Pneumonia, unspecified organism - Discharge Information Sepsis Event Note - Focused Exam Vital Signs: Vital Signs Temp Pulse Resp BP Pulse Ox 07/31/19 10:21 136 H 24 H 148/83 H 93 L 07/31/19 08:46 36.6 C 106 H 24 H 148/73 H 95 Date Exam was Performed: 07/31/19 Time Exam was Performed: 13:45 - Problem List & Annotations (1) Atrial fibrillation with RVR SNOMED Code(s): 311584535704499 Code(s): I48.91 - UNSPECIFIED ATRIAL FIBRILLATION Status: Acute Current Visit: Yes (2) Pneumonia SNOMED Code(s): 102159587 Code(s): J18.9 - PNEUMONIA, UNSPECIFIED ORGANISM Status: Acute Priority: High Current Visit: Yes Qualifiers: Pneumonia type: due to unspecified organism Laterality: right Lung location: lower lobe of lung Qualified Code(s): J18.9 - Pneumonia, unspecified organism (3) Lesion of left lung SNOMED Code(s): 302421675 Code(s): R91.1 - SOLITARY PULMONARY NODULE Status: Suspected Priority: High Current Visit: Yes (4) Lesion of right lung SNOMED Code(s): 924964140 Code(s): R91.1 - SOLITARY PULMONARY NODULE Status: Suspected Priority: High Current Visit: Yes (5) Compression fracture of body of thoracic vertebra SNOMED Code(s): 171508241 Code(s): S22.000A - WEDGE COMPRESSION FRACTURE OF UNSP THORACIC VERTEBRA, INIT Status: Suspected Priority: High Current Visit: Yes - Problem List Review Problem List Initiated/Reviewed/Updated: Yes - My Orders Last 24 Hours: My Active Orders 07/31/19 08:51 EKG Documentation Completion [RC] ASDIRECTED 07/31/19 08:54 Sodium Chloride 0.9% [Saline Flush] 10 ml FLUSH ASDIRECTED PRN Peripheral IV Insertion Adult [OM.PC] Routine 07/31/19 09:00 Sodium Chloride 0.9% [Normal Saline] 1,000 ml IV ASDIRECTED 07/31/19 09:30 Cervical Spine wo Cont [CT] Stat Lumbar Spine wo Cont [CT] Stat 07/31/19 11:14 Pneumonia Education [RC] DAILY CULTURE SPUTUM + SMEAR [RM] Urgent 07/31/19 11:20 CULTURE BLOOD [BC] Stat 07/31/19 12:10 CULTURE BLOOD [BC] Urgent - Assessment/Plan Last 24 Hours: My Active Orders 07/31/19 08:51 EKG Documentation Completion [RC] ASDIRECTED 07/31/19 08:54 Sodium Chloride 0.9% [Saline Flush] 10 ml FLUSH ASDIRECTED PRN Peripheral IV Insertion Adult [OM.PC] Routine 07/31/19 09:00 Sodium Chloride 0.9% [Normal Saline] 1,000 ml IV ASDIRECTED 07/31/19 09:30 Cervical Spine wo Cont [CT] Stat Lumbar Spine wo Cont [CT] Stat 07/31/19 11:14 Pneumonia Education [RC] DAILY CULTURE SPUTUM + SMEAR [RM] Urgent 07/31/19 11:20 CULTURE BLOOD [BC] Stat 07/31/19 12:10 CULTURE BLOOD [BC] Urgent Plan: Patient to be admitted for management of her A-fib, Pneumonia, and back pain from possible Compression fractures.
[2019-07-31] MEDS ORDERED: Morphine 2 MG/ML Syringe ONE (09:10)
[2019-07-31] MEDS: Sodium Chloride 0.9% 1,000 ML IV SCH ×2 (09:57→16:50)
--- NOTE | 2019-07-31 10:24 | CT ---
Date of Service: 07/31/19 Clinical Data: Fall UNENHANCED CHEST CT: Multislice acquisition through the chest without IV contrast was performed. No priors. Breathing motion artifact significantly degrades image quality. There is a small right pleural effusion. There is marked atelectasis and dense consolidation of the right lower lobe. No air bronchograms. There is soft tissue density material within the right lower lobe bronchus also. This may represent mucus or other endobronchial obstructing lesion. The possibility of endobronchial tumor cannot be excluded. Bronchoscopy is recommended. There is a 1.8 cm, rounded, soft tissue density, pleural-based mass in the left upper lobe anteriorly with adjacent pleural thickening. Its margins are somewhat lobulated and mildly spiculated. This is suspicious for a pulmonary malignancy. The left lung is otherwise clear. The heart is enlarged. There are calcifications in the region of the mitral valve. There are mild coronary artery calcifications. No significant pericardial effusion. The ascending aorta is mildly prominent. It measures 3.5 cm in diameter. No hilar or mediastinal adenopathy. No displaced fractures. There is degenerative disk disease throughout the thoracic spine. There are partial compression fractures involving multiple midthoracic vertebrae, age indeterminate. No other significant findings. IMPRESSION: Abnormal exam. See above. UNENHANCED ABDOMEN AND PELVIC CT: Multislice axial acquisition without IV contrast was performed. Oral contrast was not utilized. No priors. There is a small right pleural effusion. There is atelectasis and dense consolidation of the right lower lobe without air bronchograms. See chest CT dictation. The heart is enlarged. The unenhanced liver appears normal. No focal hepatic lesions. The gallbladder is mildly distended. There are hyperdense foci in the dependent gallbladder consistent with gallstones. Gallbladder ultrasound is recommended. The spleen appears normal. There is a 1.5 cm nodule inferior to the spleen consistent with an accessory spleen. The pancreas appears normal. The right and left adrenals appear normal. The right and left kidneys appear normal. No nephrocalcinosis or nephrolithiasis. No hydronephrosis or hydroureter. The bladder is fluid filled. It appears normal. No evidence of appendicitis. There is a paraumbilical ventral hernia located in the midline. It contains fat and a segment of the transverse colon. No evidence of obstruction associated with it. There is minimal fat stranding of the fat within the hernia sac suggesting the possibility of mild or early strangulation. There is diverticulosis of the descending and sigmoid colon. No evidence of diverticulitis. There is a moderate amount of stool noted within the rectum. The patient is status post hysterectomy. No free air. No free fluid. No dilated loops of bowel. No adenopathy. No aortic aneurysm. IMPRESSION: Multiple findings as discussed above. [id number] [facility]
--- NOTE | 2019-07-31 10:45 | CT ---
Date of Service: 07/31/19 Clinical Data: Fall THORACIC SPINE CT: Multislice axial acquisition was performed. Axial images and sagittal and coronal reformations are reviewed. No priors. Again noted is a small right pleural effusion. There is atelectasis and dense consolidation of the right lower lobe with soft tissue occlusion of the right lower lobe bronchus. Bronchoscopy is recommended. There is diffuse osteopenia. There are partial compression fractures of the T7, T8, T9, T12, L1, and L2 vertebrae, age indeterminate. No other fractures. There is degenerative disk disease throughout the thoracic spine. No significant central or foraminal stenosis. No lytic or blastic bone lesions. No other significant findings. [id number], [id number] [facility]
[2019-07-31] MEDS ORDERED: Azithromycin 500 MG in Sodium Chloride 0.9% 250 ML IV SCH ×2 (11:30→14:56)
[2019-07-31] MEDS: cefTRIAXone 1 GM Vial IVPUSH SCH (12:24)
--- NOTE | 2019-07-31 14:18 | CT ---
Date of Service: 07/31/19 Clinical Data: Fall CERVICAL SPINE CT: Multislice axial acquisition was performed. Axial images and sagittal and coronal reformations are reviewed. There is significant motion artifact degrading image quality. No priors. There is diffuse osteopenia. No acute fracture or dislocation. There is degenerative disk disease throughout the cervical spine. There is facet joint hypertrophy throughout the cervical spine. There is foraminal stenosis bilaterally at multiple levels. No significant central stenosis. There is a small right pleural effusion. The visualized lung apices are clear. IMPRESSION: No acute abnormalities. [id number] [facility]
--- NOTE | 2019-07-31 14:30 | CT ---
Date of Service: 07/31/19 Clinical Data: Fall LUMBAR SPINE CT: Multislice axial acquisition was performed. Axial images and sagittal and coronal reformations are reviewed. No priors. There is diffuse osteopenia. There are partial compression fractures of T12 and L1. There is mild compression deformity of the inferior endplate of L2. The age of these is indeterminate. There is degenerative disk disease throughout the lower thoracic and lumbar spine. There is vacuum disk phenomena at multiple levels. There is annular bulging of the L4-5 disk with a central disk protrusion. There is facet joint and ligamentum flavum hypertrophy at this level. There is moderately severe central spinal stenosis and moderate neural foramen stenosis bilaterally. There is annular bulging of the L5-S1 disk. There is facet joint and ligamentum flavum hypertrophy at this level. There is mild central spinal stenosis and moderate foraminal stenosis bilaterally, right greater than left. No focal lytic or blastic bone lesions. No other significant findings. [id number] [facility]
[2019-07-31] MEDS: Nystatin Susp 100,000 Unit/ML 5 ML UD Cup PO SCH ×2 (15:37→20:17)
[2019-07-31] MEDS: traMADol 50 MG Tab PO SCH ×2 (15:37→20:18)
[2019-07-31] MEDS: Montelukast 10 MG Tab PO SCH (15:38)
[2019-07-31] MEDS ORDERED: Sodium Chloride 0.9% 1,000 ML IV SCH (17:28)
[2019-07-31] MEDS: Insulin Aspart 100 Units/ML 3 ML Pen SUBCUT SCH (17:29)
[2019-07-31] MEDS ORDERED: Warfarin 3 MG Tab ONE (17:34)
[2019-07-31] MEDS: Warfarin 2 MG Tab PO SCH (17:37)
[2019-07-31] MEDS ORDERED: WARFARIN SODIUM 8 MG PO SCH (18:00)
[2019-07-31] MEDS ORDERED: FORMOTEROL FUMARATE INH SCH (20:00)
[2019-07-31] MEDS ORDERED: Non-Formulary Medication 1 Each (Melatonin [Melatonin] 5 MG) PO SCH (20:00)
[2019-07-31] MEDS: Melatonin 3 MG Tab PO SCH (20:17)
[2019-07-31] MEDS: guaiFENesin 600 MG Tab.ER PO SCH (20:18)
[2019-07-31] MEDS: QUEtiapine 25 MG Tab PO SCH ×2 (20:19→20:21)
[2019-07-31] MEDS: Desvenlafaxine 50 MG Tab.ER PO SCH (20:19)
[2019-07-31] MEDS: diphenhydrAMINE 25 MG Cap PO SCH (20:20)
[2019-07-31] MEDS: Metoprolol Tartrate 25 MG Tab PO SCH (20:20)
[2019-07-31] MEDS: Budesonide 0.5 MG/2 ML Neb Susp NEB SCH (20:21)
[2019-07-31] MEDS: Insulin Glargine,Human Rec. Analog 100 Units/ML 3 ML Pen SUBCUT SCH (20:55)
[2019-07-31] MEDS: Dextrose 5% in Water 1,000 ML IV SCH (21:15)
[2019-08-01] MEDS: Dextrose 5% in Water 1,000 ML IV SCH ×2 (05:13→14:23)
[2019-08-01] MEDS: Albuterol 0.083% 2.5 MG/3 ML Neb Soln NEB PRN ×2 (05:14→13:29)
[2019-08-01] MEDS: Nystatin Susp 100,000 Unit/ML 5 ML UD Cup PO SCH ×3 (07:44→20:00)
[2019-08-01] MEDS: Budesonide 0.5 MG/2 ML Neb Susp NEB SCH ×2 (07:44→20:00)
[2019-08-01] MEDS: diphenhydrAMINE 25 MG Cap PO SCH ×2 (07:45→19:59)
[2019-08-01] MEDS: predniSONE 10 MG Tab PO SCH (07:45)
[2019-08-01] MEDS: QUEtiapine 25 MG Tab PO SCH ×2 (07:45→19:59)
[2019-08-01] MEDS: Furosemide 40 MG Tab PO SCH (07:46)
[2019-08-01] MEDS: Diltiazem 240 MG Cap.ER PO SCH (07:46)
[2019-08-01] MEDS: Roflumilast 500 MCG Tab PO SCH (07:46)
[2019-08-01] MEDS: Omeprazole 20 MG Cap.CR PO SCH (07:46)
[2019-08-01] MEDS: guaiFENesin 600 MG Tab.ER PO SCH ×2 (07:46→20:00)
[2019-08-01] MEDS: Cholecalciferol (Vitamin D3) 2,000 Unit Cap PO SCH (07:47)
[2019-08-01] MEDS: Tiotropium Inhaler 18 MCG Inhalation Powder Cap Kit of 5 INH SCH (07:48)
[2019-08-01] MEDS: Metoprolol Tartrate 25 MG Tab PO SCH ×2 (07:53→19:58)
[2019-08-01] MEDS: Digoxin 125 MCG Tab PO SCH (07:53)
[2019-08-01] MEDS: traMADol 50 MG Tab PO SCH ×2 (07:56→13:29)
[2019-08-01] MEDS ORDERED: Non-Formulary Medication 1 Each (Cholecalciferol (Vitamin D3) [Vitamin D3] 2,000 UNIT) PO SCH (08:00)
[2019-08-01] MEDS ORDERED: Furosemide 20 MG Tab PO SCH (08:00)
[2019-08-01] MEDS ORDERED: DILTIAZEM HCL 240 MG PO SCH (08:00)
[2019-08-01] MEDS ORDERED: Non-Formulary Medication 1 Each (Umeclidinium Bromide [Incruse Ellipta] 1 PUFF) IH SCH (08:00)
[2019-08-01] MEDS: Insulin Aspart 100 Units/ML 3 ML Pen SUBCUT SCH ×3 (08:00→20:01)
[2019-08-01] MEDS: cefTRIAXone 1 GM Vial IVPUSH SCH (11:35)
[2019-08-01] MEDS: Multivitamin, Childrens Tab.Chew PO SCH (11:37)
[2019-08-01] MEDS: Azithromycin 500 MG in Sodium Chloride 0.9% 250 ML IV SCH (13:23)
--- NOTE | 2019-08-01 13:29 | PCM.PN ---
- General Info Date of Service: 08/01/19 Subjective Update: Patient remains fatigued. She denies any improvement at this time. She denies fever or chills but continues to have a cough and chest congestion. - Review of Systems General: Reports: Weakness, Fatigue HEENT: Reports: No Symptoms Pulmonary: Reports: Shortness of Breath Cardiovascular: Reports: Dyspnea on Exertion Gastrointestinal: Reports: No Symptoms Genitourinary: Reports: No Symptoms Musculoskeletal: Reports: No Symptoms Neurological: Reports: No Symptoms Psychiatric: Reports: No Symptoms - Patient Data Vitals - Most Recent: Last Vital Signs Temp 36.1 C 08/01/19 12:00 Pulse 89 08/01/19 12:00 Resp 20 08/01/19 12:00 BP 170/98 H 08/01/19 12:00 Pulse Ox 97 08/01/19 12:00 Weight - Most Recent: 72.575 kg I&O - Last 24 Hours: Intake & Output 07/31/19 08/01/19 08/01/19 22:59 06:59 14:59 Intake Total 1837 2150 Output Total 100 Balance 1737 2150 Lab Results Last 24 Hours: Laboratory Results - last 24 hr 07/31/19 07/31/19 07/31/19 Range/Units 15:37 17:13 20:57 WBC (4.0-11.0) K/uL RBC (3.80-5.80) M/uL Hgb (11.5-16.5) g/dL Hct (37.0-47.0) % MCV (76-96) fL MCH (27.0-32.0) pg MCHC (31.0-35.0) g/dL RDW (11.0-16.0) % Plt Count (150-500) K/uL MPV (6.0-10.0) fL Neut % (Auto) (45.0-70.0) % Lymph % (Auto) (20.0-40.0) % [place] % (Auto) (3.0-10.0) % Eos % (Auto) (1.0-5.0) % Baso % (Auto) (0.0-0.5) % Neut # (Auto) (2.00-7.50) K/uL Lymph # (Auto) (1.50-4.00) K/uL [place] # (Auto) (0.20-0.80) K/uL Eos # (Auto) (0.04-0.40) K/uL Baso # (Auto) (0.02-0.10) K/uL Sodium (136-145) mmol/L Potassium (3.5-5.1) mmol/L Chloride (98-107) mmol/L Carbon Dioxide (21.0-32.0) mmol/L Anion Gap (5.0-15.0) mmol/L BUN (8-26) mg/dL Creatinine (0.55-1.02) mg/dL Est Cr Clr Drug Dosing mL/min Estimated GFR (MDRD) (>60) MLS/MIN BUN/Creatinine Ratio (6-25) Glucose (74-100) mg/dL POC Glucose 60 L 116 H 47 L* (74-110) mg/dL Calcium (8.5-10.1) mg/dL 07/31/19 07/31/19 07/31/19 Range/Units 21:07 21:20 22:24 WBC (4.0-11.0) K/uL RBC (3.80-5.80) M/uL Hgb (11.5-16.5) g/dL Hct (37.0-47.0) % MCV (76-96) fL MCH (27.0-32.0) pg MCHC (31.0-35.0) g/dL RDW (11.0-16.0) % Plt Count (150-500) K/uL MPV (6.0-10.0) fL Neut % (Auto) (45.0-70.0) % Lymph % (Auto) (20.0-40.0) % [place] % (Auto) (3.0-10.0) % Eos % (Auto) (1.0-5.0) % Baso % (Auto) (0.0-0.5) % Neut # (Auto) (2.00-7.50) K/uL Lymph # (Auto) (1.50-4.00) K/uL [place] # (Auto) (0.20-0.80) K/uL Eos # (Auto) (0.04-0.40) K/uL Baso # (Auto) (0.02-0.10) K/uL Sodium (136-145) mmol/L Potassium (3.5-5.1) mmol/L Chloride (98-107) mmol/L Carbon Dioxide (21.0-32.0) mmol/L Anion Gap (5.0-15.0) mmol/L BUN (8-26) mg/dL Creatinine (0.55-1.02) mg/dL Est Cr Clr Drug Dosing mL/min Estimated GFR (MDRD) (>60) MLS/MIN BUN/Creatinine Ratio (6-25) Glucose 70 L D (74-100) mg/dL POC Glucose 49 L* 208 H (74-110) mg/dL Calcium (8.5-10.1) mg/dL 08/01/19 08/01/19 08/01/19 Range/Units 00:08 03:59 07:10 WBC 11.2 H D (4.0-11.0) K/uL RBC 4.16 (3.80-5.80) M/uL Hgb 11.3 L (11.5-16.5) g/dL Hct 37.8 (37.0-47.0) % MCV 91 (76-96) fL MCH 27.2 (27.0-32.0) pg MCHC 29.9 L (31.0-35.0) g/dL RDW 15.3 (11.0-16.0) % Plt Count 277 (150-500) K/uL MPV 9.3 (6.0-10.0) fL Neut % (Auto) 74.8 H (45.0-70.0) % Lymph % (Auto) 11.2 L (20.0-40.0) % [place] % (Auto) 12.8 H (3.0-10.0) % Eos % (Auto) 0.9 L (1.0-5.0) % Baso % (Auto) 0.3 (0.0-0.5) % Neut # (Auto) 8.35 H (2.00-7.50) K/uL Lymph # (Auto) 1.25 L (1.50-4.00) K/uL [place] # (Auto) 1.43 H (0.20-0.80) K/uL Eos # (Auto) 0.10 (0.04-0.40) K/uL Baso # (Auto) 0.03 (0.02-0.10) K/uL Sodium (136-145) mmol/L Potassium (3.5-5.1) mmol/L Chloride (98-107) mmol/L Carbon Dioxide (21.0-32.0) mmol/L Anion Gap (5.0-15.0) mmol/L BUN (8-26) mg/dL Creatinine (0.55-1.02) mg/dL Est Cr Clr Drug Dosing mL/min Estimated GFR (MDRD) (>60) MLS/MIN BUN/Creatinine Ratio (6-25) Glucose (74-100) mg/dL POC Glucose 132 H 117 H (74-110) mg/dL Calcium (8.5-10.1) mg/dL 08/01/19 08/01/19 Range/Units 07:10 10:40 WBC (4.0-11.0) K/uL RBC (3.80-5.80) M/uL Hgb (11.5-16.5) g/dL Hct (37.0-47.0) % MCV (76-96) fL MCH (27.0-32.0) pg MCHC (31.0-35.0) g/dL RDW (11.0-16.0) % Plt Count (150-500) K/uL MPV (6.0-10.0) fL Neut % (Auto) (45.0-70.0) % Lymph % (Auto) (20.0-40.0) % [place] % (Auto) (3.0-10.0) % Eos % (Auto) (1.0-5.0) % Baso % (Auto) (0.0-0.5) % Neut # (Auto) (2.00-7.50) K/uL Lymph # (Auto) (1.50-4.00) K/uL [place] # (Auto) (0.20-0.80) K/uL Eos # (Auto) (0.04-0.40) K/uL Baso # (Auto) (0.02-0.10) K/uL Sodium 142 (136-145) mmol/L Potassium 3.9 (3.5-5.1) mmol/L Chloride 96 L (98-107) mmol/L Carbon Dioxide 44.6 H (21.0-32.0) mmol/L Anion Gap 5.3 (5.0-15.0) mmol/L BUN 12 D (8-26) mg/dL Creatinine 0.91 (0.55-1.02) mg/dL Est Cr Clr Drug Dosing 52.34 mL/min Estimated GFR (MDRD) > 60 (>60) MLS/MIN BUN/Creatinine Ratio 13.2 (6-25) Glucose 132 H D (74-100) mg/dL POC Glucose 215 H (74-110) mg/dL Calcium 8.6 (8.5-10.1) mg/dL [place] Results Last 24 Hours: Microbiology 07/31/19 12:10 Aerobic Blood Culture - Preliminary Blood - Arm, Left NO GROWTH AFTER 1 DAY Anaerobic Blood Culture - Preliminary NO GROWTH AFTER 1 DAY 07/31/19 11:20 Aerobic Blood Culture - Preliminary Blood - Arm, Right NO GROWTH AFTER 1 DAY Anaerobic Blood Culture - Preliminary NO GROWTH AFTER 1 DAY 07/31/19 12:30 MRSA Surveillance Culture - Final Nasal, Unspecified NO MRSA ISOLATED 07/31/19 09:15 Influenza Type A Antigen Screen - Final Nasal Aspirate, Unspecified NEGATIVE INFLUENZA A VIRUS AG REFERENCE RANGE: NEGATIVE Influenza Type B Antigen Screen - Final NEGATIVE INFLUENZA B VIRUS AG REFERENCE RANGE: NEGATIVE Med Orders - Current: Current Medications Albuterol (Proventil Neb Soln) 2.5 mg NEB Q6H PRN PRN Reason: Shortness of Breath Last Admin: 08/01/19 05:14 Dose: 2.5 mg Albuterol (Ventolin Hfa) 0 gm INH Q4H PRN PRN Reason: Shortness of Breath Budesonide (Pulmicort) 0.5 mg NEB BID [facility] Last Admin: 08/01/19 07:44 Dose: 0.5 mg Ceftriaxone Sodium (Rocephin) 1 gm IVPUSH Q24H [facility] Last Admin: 08/01/19 11:35 Dose: 1 gm Cholecalciferol (Vitamin D3) 2,000 unit PO DAILY [facility] Last Admin: 08/01/19 07:47 Dose: 2,000 unit Desvenlafaxine Succinate (Pristiq) 50 mg PO QPM [facility] Last Admin: 07/31/19 20:19 Dose: 50 mg Digoxin (Lanoxin) 125 mcg PO DAILY [facility] Last Admin: 08/01/19 07:53 Dose: 125 mcg Diltiazem HCl (Dilacor Xr) 240 mg PO DAILY [facility] Last Admin: 08/01/19 07:46 Dose: 240 mg Diphenhydramine HCl (Benadryl) 25 mg PO BID [facility] Last Admin: 08/01/19 07:45 Dose: 25 mg Furosemide (Lasix) 40 mg PO DAILY [facility] Last Admin: 08/01/19 07:46 Dose: 40 mg Guaifenesin (Mucinex) 1,200 mg PO BID [facility] Last Admin: 08/01/19 07:46 Dose: 1,200 mg Hydroxyzine HCl (Atarax) 25 mg PO TID PRN PRN Reason: Anxiety Azithromycin 500 mg/ Sodium (Chloride) 250 mls @ 250 mls/hr IV Q24H [facility] Last Admin: 08/01/19 13:23 Dose: 250 mls/hr Dextrose/Water (Dextrose 5% In Water) 1,000 mls @ 75 mls/hr IV ASDIRECTED [facility] Last Admin: 08/01/19 05:13 Dose: 125 mls/hr Insulin Aspart (Novolog) 10 unit SUBCUT TIDMEALS [facility] Last Admin: 08/01/19 12:16 Dose: Not Given Insulin Glargine (Lantus Solostar) 18 units SUBCUT BEDTIME [facility] Last Admin: 07/31/19 20:55 Dose: Not Given Melatonin (Melatonin) 3 mg PO BEDTIME [facility] Last Admin: 07/31/19 20:17 Dose: 3 mg Metoprolol Tartrate (Lopressor) 25 mg PO Q12HR [facility] Last Admin: 08/01/19 07:53 Dose: 25 mg Montelukast Sodium (Singulair) 10 mg PO PCLUNCH [facility] Last Admin: 07/31/19 15:38 Dose: 10 mg Multivitamins/Minerals/Vitamin C (Childrens Chewable Vitamin) 1 tab PO DAILY@ 1200 [facility] Last Admin: 08/01/19 11:37 Dose: 1 tab Non-Formulary Medication (Formoterol Fumarate [Perforomist]) 1 vial INH BID [facility] Nystatin (Mycostatin) 5 ml PO TID [facility] Last Admin: 08/01/19 07:44 Dose: 5 ml Omeprazole (Omeprazole) 20 mg PO DAILY [facility] Last Admin: 08/01/19 07:46 Dose: 20 mg Prednisone (Prednisone) 10 mg PO DAILY [facility] Last Admin: 08/01/19 07:45 Dose: 10 mg Quetiapine Fumarate (Seroquel) 12.5 mg PO DAILY [facility] Last Admin: 08/01/19 07:45 Dose: 12.5 mg Quetiapine Fumarate (Seroquel) 25 mg PO BEDTIME [facility] Last Admin: 07/31/19 20:21 Dose: 25 mg Roflumilast (Daliresp) 500 mcg PO DAILY [facility] Last Admin: 08/01/19 07:46 Dose: 500 mcg Sodium Chloride (Saline Flush) 10 ml FLUSH ASDIRECTED PRN PRN Reason: Keep Vein Open Tiotropium [place] (Spiriva Handihaler) 18 mcg INH DAILY [facility] Last Admin: 08/01/19 07:48 Dose: 18 mcg Tramadol HCl (Ultram) 50 mg PO TID [facility] Last Admin: 08/01/19 07:56 Dose: 50 mg Warfarin Sodium (Coumadin) 6 mg PO DAILY@1800 [facility] Last Admin: 07/31/19 17:38 Dose: 6 mg Warfarin Sodium (Coumadin) 2 mg PO DAILY@1800 [facility] Last Admin: 07/31/19 17:37 Dose: 2 mg Discontinued Medications Sodium Chloride (Normal Saline) 1,000 mls @ 250 mls/hr IV ASDIRECTED [facility] Last Admin: 07/31/19 16:50 Dose: 250 mls/hr Azithromycin 500 mg/ Sodium (Chloride) 250 mls @ 250 mls/hr IV Q24H [facility] Last Admin: 07/31/19 12:31 Dose: 250 mls/hr Azithromycin 500 mg/ Sodium (Chloride) 250 mls @ 250 mls/hr IV Q24H [facility] Last Admin: 07/31/19 16:33 Dose: Not Given Sodium Chloride (Normal Saline) 1,000 mls @ 125 mls/hr IV ASDIRECTED [facility] Last Admin: 07/31/19 18:47 Dose: 125 mls/hr Morphine Sulfate (Morphine) 2 mg IVPUSH ONETIME ONE Stop: 07/31/19 08:54 Last Admin: 07/31/19 09:12 Dose: 2 mg Morphine Sulfate (Morphine) Confirm Administered Dose 2 mg .ROUTE .STK-MED ONE Stop: 07/31/19 09:11 Last Admin: 07/31/19 12:17 Dose: Not Given Warfarin Sodium (Coumadin) Confirm Administered Dose 6 mg [facility] Stop: 07/31/19 17:35 Last Admin: 07/31/19 17:46 Dose: Not Given - Exam Quality Assessment: Supplemental Oxygen General: Alert, Oriented, Cooperative, No Acute Distress HEENT: Pupils Equal, Pupils Reactive, EOMI Neck: Supple Lungs: Decreased Breath Sounds, Wheezing Cardiovascular: Regular Rate, Irregular Rhythm GI/Abdominal Exam: Normal Bowel Sounds, Soft, Non-Tender Back Exam: Normal Inspection Extremities: Normal Inspection, Normal Range of Motion, Non-Tender Skin: Warm, Dry, Intact Neurological: No New Focal Deficit, Strength Equal Bilateral Sepsis Event Note - Evaluation Sepsis Screening Result: No Definite Risk - Focused Exam Vital Signs: Vital Signs Temp Pulse Pulse Resp BP BP Pulse Ox 08/01/19 12:00 36.1 C 89 20 170/98 H 97 08/01/19 08:00 36.0 C 106 H 22 H 152/100 H 97 08/01/19 07:53 106 H 152/100 H 08/01/19 04:00 18 98 Date Exam was Performed: 08/01/19 Time Exam was Performed: 13:25 - Problem List & Annotations (1) Atrial fibrillation with RVR SNOMED Code(s): 129180543328635 Code(s): I48.91 - UNSPECIFIED ATRIAL FIBRILLATION Status: Acute Current Visit: Yes (2) Pneumonia SNOMED Code(s): 949121143 Code(s): J18.9 - PNEUMONIA, UNSPECIFIED ORGANISM Status: Acute Priority: High Current Visit: Yes Qualifiers: Pneumonia type: due to unspecified organism Laterality: right Lung location: lower lobe of lung Qualified Code(s): J18.9 - Pneumonia, unspecified organism (3) Lesion of left lung SNOMED Code(s): 696573956 Code(s): R91.1 - SOLITARY PULMONARY NODULE Status: Suspected Priority: High Current Visit: Yes (4) Lesion of right lung SNOMED Code(s): 700108782 Code(s): R91.1 - SOLITARY PULMONARY NODULE Status: Suspected Priority: High Current Visit: Yes (5) Compression fracture of body of thoracic vertebra SNOMED Code(s): 343776500 Code(s): S22.000A - WEDGE COMPRESSION FRACTURE OF UNSP THORACIC VERTEBRA, INIT Status: Suspected Priority: High Current Visit: Yes - Problem List Review Problem List Initiated/Reviewed/Updated: Yes - My Orders Last 24 Hours: My Active Orders 07/31/19 13:32 Albuterol [Proventil Neb Soln] 2.5 mg NEB Q6H PRN Albuterol [Ventolin HFA] 0 gm INH Q4H PRN hydrOXYzine HCL [Atarax] 25 mg PO TID PRN 07/31/19 14:00 Montelukast [Singulair] 10 mg PO PCLUNCH Nystatin [Mycostatin] 5 ml PO TID traMADol [Ultram] 50 mg PO TID 07/31/19 15:30 POC Glucose [Blood Glucose Check, Bedside] [RC] WITHMEALSANDBED 07/31/19 18:00 Insulin Aspart [NovoLOG] 10 unit SUBCUT TIDMEALS Warfarin [Coumadin] 2 mg PO DAILY@1800 Warfarin [Coumadin] 6 mg PO DAILY@1800 07/31/19 20:00 Budesonide [Pulmicort] 0.5 mg NEB BID Desvenlafaxine [Pristiq] 50 mg PO QPM Formoterol Fumarate [Perforomist] 1 vial INH BID Insulin Glarg,Human.Rec.Analog [LantUS Solostar] 18 units SUBCUT BEDTIME Melatonin 3 mg PO BEDTIME Metoprolol Tartrate [Lopressor] 25 mg PO Q12HR QUEtiapine [SEROqueL] 25 mg PO BEDTIME diphenhydrAMINE [Benadryl] 25 mg PO BID guaiFENesin [Mucinex] 1,200 mg PO BID 07/31/19 20:58 Convert IV to Saline Lock [OM.PC] Routine 07/31/19 21:15 Dextrose 5% in Water 1,000 ml IV ASDIRECTED 07/31/19 Dinner Consistent Carbohydrate Diet [DIET] 08/01/19 08:00 Cholecalciferol (Vitamin D3) [Vitamin D3] 2,000 unit PO DAILY Digoxin [Lanoxin] 125 mcg PO DAILY Diltiazem [Dilacor XR] 240 mg PO DAILY Furosemide [Lasix] 40 mg PO DAILY Omeprazole 20 mg PO DAILY QUEtiapine [SEROqueL] 12.5 mg PO DAILY Roflumilast [Daliresp] 500 mcg PO DAILY Tiotropium [Spiriva HandiHaler] 18 mcg INH DAILY predniSONE 10 mg PO DAILY 08/01/19 12:00 Multivitamins [Childrens Chewable Vitamin] 1 tab PO DAILY@1200 08/01/19 13:00 Azithromycin [Zithromax] 500 mg Sodium Chloride 0.9% [Normal Saline (AdvBag)] 250 ml IV Q24H 08/02/19 05:11 BASIC METABOLIC PANEL,BMP [CHEM] DAILY CBC WITH AUTO DIFF [HEME] DAILY 08/03/19 05:11 BASIC METABOLIC PANEL,BMP [CHEM] DAILY CBC WITH AUTO DIFF [HEME] DAILY - Plan Plan:: A-fib w RVR - rate controlled Pneumonia - WBC improved, we will continue on current antibiotics and f/u labs in am. PT/OT we will f/u plan of care and suggest that patient co-operate as much as she can. Lung lesions - patient acknowledges the lesions and will decide with family what she would like to do. In the past she did not choose to follow up with pulmonology.
[2019-08-01] MEDS: Montelukast 10 MG Tab PO SCH (13:30)
[2019-08-01] MEDS ORDERED: Warfarin 2 MG Tab ONE (18:26)
[2019-08-01] MEDS: Warfarin 2 MG Tab PO SCH (18:30)
[2019-08-01] MEDS: Melatonin 3 MG Tab PO SCH (19:57)
[2019-08-01] MEDS: Desvenlafaxine 50 MG Tab.ER PO SCH (20:00)
[2019-08-01] MEDS: Insulin Glargine,Human Rec. Analog 100 Units/ML 3 ML Pen SUBCUT SCH (20:55)
[2019-08-02] MEDS: Dextrose 5% in Water 1,000 ML IV SCH ×2 (03:33→21:00)
[2019-08-02] MEDS: hydrOXYzine HCl 25 MG Tab PO PRN ×3 (03:39→23:09)
[2019-08-02] MEDS: Albuterol 0.083% 2.5 MG/3 ML Neb Soln NEB PRN ×4 (03:48→22:05)
[2019-08-02] MEDS: predniSONE 10 MG Tab PO SCH (08:25)
[2019-08-02] MEDS: Omeprazole 20 MG Cap.CR PO SCH (08:25)
[2019-08-02] MEDS: Metoprolol Tartrate 25 MG Tab PO SCH ×2 (08:26→19:33)
[2019-08-02] MEDS: Furosemide 40 MG Tab PO SCH (08:26)
[2019-08-02] MEDS: Cholecalciferol (Vitamin D3) 2,000 Unit Cap PO SCH (08:26)
[2019-08-02] MEDS: diphenhydrAMINE 25 MG Cap PO SCH ×2 (08:27→19:31)
[2019-08-02] MEDS: Diltiazem 240 MG Cap.ER PO SCH (08:27)
[2019-08-02] MEDS: Digoxin 125 MCG Tab PO SCH (08:28)
[2019-08-02] MEDS: guaiFENesin 600 MG Tab.ER PO SCH ×2 (08:30→19:33)
[2019-08-02] MEDS: Nystatin Susp 100,000 Unit/ML 5 ML UD Cup PO SCH ×3 (08:31→19:35)
[2019-08-02] MEDS: Roflumilast 500 MCG Tab PO SCH (08:31)
[2019-08-02] MEDS: QUEtiapine 25 MG Tab PO SCH ×2 (08:36→19:34)
[2019-08-02] MEDS: Insulin Aspart 100 Units/ML 3 ML Pen SUBCUT SCH ×3 (08:38→18:12)
[2019-08-02] MEDS: Budesonide 0.5 MG/2 ML Neb Susp NEB SCH ×2 (08:47→19:20)
[2019-08-02] MEDS: Tiotropium Inhaler 18 MCG Inhalation Powder Cap Kit of 5 INH SCH (08:47)
[2019-08-02] MEDS: Albuterol 8 GM Inhaler INH PRN ×3 (11:58→19:54)
--- NOTE | 2019-08-02 12:25 | PCM.PN ---
- General Info Date of Service: 08/02/19 Subjective Update: Patient is more alert after cessation of Tramadol. She is note sleeping through her exam and questions. She does complain of increased back pain. - Review of Systems General: Reports: Weakness, Fatigue HEENT: Reports: No Symptoms Pulmonary: Reports: Shortness of Breath, Sputum, Wheezing Cardiovascular: Reports: No Symptoms Gastrointestinal: Reports: Decreased Appetite Genitourinary: Reports: No Symptoms Musculoskeletal: Reports: Shoulder Pain, Back Pain, Joint Pain Skin: Reports: No Symptoms Neurological: Reports: Headache, Difficulty Walking, Weakness - Patient Data Vitals - Most Recent: Last Vital Signs Temp 36.0 C 08/02/19 08:00 Pulse 98 08/02/19 08:28 Resp 20 08/02/19 08:00 BP 148/75 H 08/02/19 08:26 Pulse Ox 95 08/02/19 08:00 Weight - Most Recent: 72.575 kg I&O - Last 24 Hours: Intake & Output 08/01/19 08/02/19 08/02/19 22:59 06:59 14:59 Intake Total 750 900 Balance 750 900 Lab Results Last 24 Hours: Laboratory Results - last 24 hr 08/01/19 08/01/19 08/02/19 Range/Units 16:37 19:37 07:50 WBC 10.8 (4.0-11.0) K/uL RBC 4.42 (3.80-5.80) M/uL Hgb 12.0 (11.5-16.5) g/dL Hct 39.0 (37.0-47.0) % MCV 88 (76-96) fL MCH 27.1 (27.0-32.0) pg MCHC 30.8 L (31.0-35.0) g/dL RDW 15.5 (11.0-16.0) % Plt Count 293 (150-500) K/uL MPV 9.5 (6.0-10.0) fL Neut % (Auto) 73.0 H (45.0-70.0) % Lymph % (Auto) 13.0 L (20.0-40.0) % [place] % (Auto) 12.9 H (3.0-10.0) % Eos % (Auto) 0.9 L (1.0-5.0) % Baso % (Auto) 0.2 (0.0-0.5) % Neut # (Auto) 7.90 H (2.00-7.50) K/uL Lymph # (Auto) 1.40 L (1.50-4.00) K/uL [place] # (Auto) 1.39 H (0.20-0.80) K/uL Eos # (Auto) 0.10 (0.04-0.40) K/uL Baso # (Auto) 0.02 (0.02-0.10) K/uL Sodium (136-145) mmol/L Potassium (3.5-5.1) mmol/L Chloride (98-107) mmol/L Carbon Dioxide (21.0-32.0) mmol/L Anion Gap (5.0-15.0) mmol/L BUN (8-26) mg/dL Creatinine (0.55-1.02) mg/dL Est Cr Clr Drug Dosing mL/min Estimated GFR (MDRD) (>60) MLS/MIN BUN/Creatinine Ratio (6-25) Glucose (74-100) mg/dL POC Glucose 243 H 205 H (74-110) mg/dL Calcium (8.5-10.1) mg/dL 08/02/19 08/02/19 Range/Units 07:50 11:19 WBC (4.0-11.0) K/uL RBC (3.80-5.80) M/uL Hgb (11.5-16.5) g/dL Hct (37.0-47.0) % MCV (76-96) fL MCH (27.0-32.0) pg MCHC (31.0-35.0) g/dL RDW (11.0-16.0) % Plt Count (150-500) K/uL MPV (6.0-10.0) fL Neut % (Auto) (45.0-70.0) % Lymph % (Auto) (20.0-40.0) % [place] % (Auto) (3.0-10.0) % Eos % (Auto) (1.0-5.0) % Baso % (Auto) (0.0-0.5) % Neut # (Auto) (2.00-7.50) K/uL Lymph # (Auto) (1.50-4.00) K/uL [place] # (Auto) (0.20-0.80) K/uL Eos # (Auto) (0.04-0.40) K/uL Baso # (Auto) (0.02-0.10) K/uL Sodium 139 (136-145) mmol/L Potassium 3.4 L (3.5-5.1) mmol/L Chloride 92 L (98-107) mmol/L Carbon Dioxide 43.1 H (21.0-32.0) mmol/L Anion Gap 7.3 (5.0-15.0) mmol/L BUN 9 D (8-26) mg/dL Creatinine 1.06 H (0.55-1.02) mg/dL Est Cr Clr Drug Dosing 44.94 mL/min Estimated GFR (MDRD) 52 L (>60) MLS/MIN BUN/Creatinine Ratio 8.5 (6-25) Glucose 176 H D (74-100) mg/dL POC Glucose 99 (74-110) mg/dL Calcium 8.8 (8.5-10.1) mg/dL [place] Results Last 24 Hours: Microbiology 07/31/19 12:10 Aerobic Blood Culture - Preliminary Blood - Arm, Left NO GROWTH AFTER 2 DAYS Anaerobic Blood Culture - Preliminary NO GROWTH AFTER 2 DAYS 07/31/19 11:20 Aerobic Blood Culture - Preliminary Blood - Arm, Right NO GROWTH AFTER 2 DAYS Anaerobic Blood Culture - Preliminary NO GROWTH AFTER 2 DAYS 07/31/19 12:30 MRSA Surveillance Culture - Final Nasal, Unspecified NO MRSA ISOLATED Med Orders - Current: Current Medications Albuterol (Proventil Neb Soln) 2.5 mg NEB Q6H PRN PRN Reason: Shortness of Breath Last Admin: 08/02/19 03:48 Dose: 2.5 mg Albuterol (Ventolin Hfa) 0 gm INH Q4H PRN PRN Reason: Shortness of Breath Last Admin: 08/02/19 11:58 Dose: 2 inhalation Budesonide (Pulmicort) 0.5 mg NEB BID [facility] Last Admin: 08/02/19 08:47 Dose: 0.5 mg Ceftriaxone Sodium (Rocephin) 1 gm IVPUSH Q24H [facility] Last Admin: 08/01/19 11:35 Dose: 1 gm Cholecalciferol (Vitamin D3) 2,000 unit PO DAILY [facility] Last Admin: 08/02/19 08:26 Dose: 2,000 unit Desvenlafaxine Succinate (Pristiq) 50 mg PO QPM [facility] Last Admin: 08/01/19 20:00 Dose: 50 mg Digoxin (Lanoxin) 125 mcg PO DAILY [facility] Last Admin: 08/02/19 08:28 Dose: 125 mcg Diltiazem HCl (Dilacor Xr) 240 mg PO DAILY [facility] Last Admin: 08/02/19 08:27 Dose: 240 mg Diphenhydramine HCl (Benadryl) 25 mg PO BID [facility] Last Admin: 08/02/19 08:27 Dose: 25 mg Furosemide (Lasix) 40 mg PO DAILY [facility] Last Admin: 08/02/19 08:26 Dose: 40 mg Guaifenesin (Mucinex) 1,200 mg PO BID [facility] Last Admin: 08/02/19 08:30 Dose: 1,200 mg Hydroxyzine HCl (Atarax) 25 mg PO TID PRN PRN Reason: Anxiety Last Admin: 08/02/19 03:39 Dose: 25 mg Azithromycin 500 mg/ Sodium (Chloride) 250 mls @ 250 mls/hr IV Q24H [facility] Last Admin: 08/01/19 13:23 Dose: 250 mls/hr Dextrose/Water (Dextrose 5% In Water) 1,000 mls @ 75 mls/hr IV ASDIRECTED [facility] Last Admin: 08/02/19 03:33 Dose: 75 mls/hr Insulin Aspart (Novolog) 10 unit SUBCUT TIDMEALS [facility] Last Admin: 08/02/19 08:38 Dose: 10 units Insulin Glargine (Lantus Solostar) 18 units SUBCUT BEDTIME [facility] Last Admin: 08/01/19 20:55 Dose: 9 units Melatonin (Melatonin) 3 mg PO BEDTIME [facility] Last Admin: 08/01/19 19:57 Dose: 3 mg Metoprolol Tartrate (Lopressor) 25 mg PO Q12HR [facility] Last Admin: 08/02/19 08:26 Dose: 25 mg Montelukast Sodium (Singulair) 10 mg PO PCLUNCH [facility] Last Admin: 08/01/19 13:30 Dose: 10 mg Multivitamins/Minerals/Vitamin C (Childrens Chewable Vitamin) 1 tab PO DAILY@ 1200 [facility] Last Admin: 08/01/19 11:37 Dose: 1 tab Non-Formulary Medication (Formoterol Fumarate [Perforomist]) 1 vial INH BID [facility] Nystatin (Mycostatin) 5 ml PO TID [facility] Last Admin: 08/02/19 08:31 Dose: 5 ml Omeprazole (Omeprazole) 20 mg PO DAILY [facility] Last Admin: 08/02/19 08:25 Dose: 20 mg Prednisone (Prednisone) 10 mg PO DAILY [facility] Last Admin: 08/02/19 08:25 Dose: 10 mg Quetiapine Fumarate (Seroquel) 12.5 mg PO DAILY [facility] Last Admin: 08/02/19 08:36 Dose: 12.5 mg Quetiapine Fumarate (Seroquel) 25 mg PO BEDTIME [facility] Last Admin: 08/01/19 19:59 Dose: 25 mg Roflumilast (Daliresp) 500 mcg PO DAILY [facility] Last Admin: 08/02/19 08:31 Dose: 500 mcg Sodium Chloride (Saline Flush) 10 ml FLUSH ASDIRECTED PRN PRN Reason: Keep Vein Open Tiotropium [place] (Spiriva Handihaler) 18 mcg INH DAILY [facility] Last Admin: 08/02/19 08:47 Dose: 18 mcg Tramadol HCl (Ultram) 50 mg PO TID [facility] Last Admin: 08/01/19 13:29 Dose: 50 mg Warfarin Sodium (Coumadin) 6 mg PO DAILY@1800 [facility] Last Admin: 08/01/19 18:30 Dose: 6 mg Warfarin Sodium (Coumadin) 2 mg PO DAILY@1800 [facility] Last Admin: 08/01/19 18:30 Dose: 2 mg Discontinued Medications Sodium Chloride (Normal Saline) 1,000 mls @ 250 mls/hr IV ASDIRECTED [facility] Last Admin: 07/31/19 16:50 Dose: 250 mls/hr Azithromycin 500 mg/ Sodium (Chloride) 250 mls @ 250 mls/hr IV Q24H [facility] Last Admin: 07/31/19 12:31 Dose: 250 mls/hr Azithromycin 500 mg/ Sodium (Chloride) 250 mls @ 250 mls/hr IV Q24H [facility] Last Admin: 07/31/19 16:33 Dose: Not Given Sodium Chloride (Normal Saline) 1,000 mls @ 125 mls/hr IV ASDIRECTED [facility] Last Admin: 07/31/19 18:47 Dose: 125 mls/hr Morphine Sulfate (Morphine) 2 mg IVPUSH ONETIME ONE Stop: 07/31/19 08:54 Last Admin: 07/31/19 09:12 Dose: 2 mg Morphine Sulfate (Morphine) Confirm Administered Dose 2 mg .ROUTE .STK-MED ONE Stop: 07/31/19 09:11 Last Admin: 07/31/19 12:17 Dose: Not Given Warfarin Sodium (Coumadin) Confirm Administered Dose 6 mg .ROUTE .STK-MED ONE Stop: 07/31/19 17:35 Last Admin: 07/31/19 17:46 Dose: Not Given Warfarin Sodium (Coumadin) Confirm Administered Dose 6 mg .ROUTE .STK-MED ONE Stop: 08/01/19 18:27 Last Admin: 08/01/19 18:45 Dose: 6 mg - Exam Quality Assessment: Supplemental Oxygen General: Alert, Oriented, Cooperative HEENT: Pupils Equal, Pupils Reactive, EOMI Neck: Supple Lungs: Decreased Breath Sounds, Rhonchi, Wheezing Cardiovascular: Regular Rate, Regular Rhythm GI/Abdominal Exam: Normal Bowel Sounds, Soft, Non-Tender Back Exam: Paraspinal Tenderness Extremities: Normal Inspection Skin: Warm, Dry, Intact Neurological: No New Focal Deficit Psy/Mental Status: Alert, Normal Affect, Normal Mood Sepsis Event Note - Evaluation Sepsis Screening Result: No Definite Risk - Focused Exam Vital Signs: Vital Signs Temp Pulse Pulse Resp BP BP Pulse Ox 08/02/19 08:28 98 08/02/19 08:26 98 148/75 H 08/02/19 08:00 36.0 C 98 20 148/75 H 95 08/02/19 04:00 36.1 C 80 16 154/78 H 96 Date Exam was Performed: 08/02/19 Time Exam was Performed: 16:31 - Problem List & Annotations (1) Atrial fibrillation with RVR SNOMED Code(s): 171115154985352 Code(s): I48.91 - UNSPECIFIED ATRIAL FIBRILLATION Status: Resolved Current Visit: Yes (2) Pneumonia SNOMED Code(s): 683348730 Code(s): J18.9 - PNEUMONIA, UNSPECIFIED ORGANISM Status: Acute Priority: High Current Visit: Yes Qualifiers: Pneumonia type: due to unspecified organism Laterality: right Lung location: lower lobe of lung Qualified Code(s): J18.9 - Pneumonia, unspecified organism (3) Lesion of left lung SNOMED Code(s): 859127924 Code(s): R91.1 - SOLITARY PULMONARY NODULE Status: Suspected Priority: High Current Visit: Yes (4) Lesion of right lung SNOMED Code(s): 852962915 Code(s): R91.1 - SOLITARY PULMONARY NODULE Status: Suspected Priority: High Current Visit: Yes (5) Compression fracture of body of thoracic vertebra SNOMED Code(s): 367353984 Code(s): S22.000A - WEDGE COMPRESSION FRACTURE OF UNSP THORACIC VERTEBRA, INIT Status: Suspected Priority: High Current Visit: Yes - Problem List Review Problem List Initiated/Reviewed/Updated: Yes - My Orders Last 24 Hours: My Active Orders 08/01/19 12:00 Multivitamins [Childrens Chewable Vitamin] 1 tab PO DAILY@1200 08/01/19 13:00 Azithromycin [Zithromax] 500 mg Sodium Chloride 0.9% [Normal Saline (AdvBag)] 250 ml IV Q24H 08/03/19 05:11 BASIC METABOLIC PANEL,BMP [CHEM] DAILY CBC WITH AUTO DIFF [HEME] DAILY - Plan Plan:: A-fib w RVR - rate controlled Pneumonia - WBC improved, we will continue on current antibiotics and f/u labs in am. PT/OT we will f/u plan of care and suggest that patient co-operate as much as she can. Lung lesions - patient acknowledges the lesions and will decide with family what she would like to do. In the past she did not choose to follow up with pulmonology. 08/02/19 Discussed lung lesions again and patient acknowledges that she does see Oncology in [place] and will continue to f/u. She is much more alert with holding Tramadol. Patient continues to have shortness of breath and weakness. We will continue to monitor vitals, repeat labs in AM, continue course of antibiotics and discussed discharge planning. Patient to work with PT/OT. Counseled on compliance and working with PT/OT.
[2019-08-02] MEDS: cefTRIAXone 1 GM Vial IVPUSH SCH (13:14)
[2019-08-02] MEDS: Multivitamin, Childrens Tab.Chew PO SCH (13:14)
[2019-08-02] MEDS: Azithromycin 500 MG in Sodium Chloride 0.9% 250 ML IV SCH (13:54)
[2019-08-02] MEDS: Montelukast 10 MG Tab PO SCH (13:55)
[2019-08-02] MEDS ORDERED: Ibuprofen 600 MG Tab PO PRN (14:34)
[2019-08-02] MEDS: Acetaminophen 325 MG Tab PO PRN (15:19)
[2019-08-02] MEDS: Warfarin 2 MG Tab PO SCH (18:04)
[2019-08-02] MEDS: Warfarin 5 MG Tab ONE ×2 (18:06→18:30)
[2019-08-02] MEDS: Desvenlafaxine 50 MG Tab.ER PO SCH (19:32)
[2019-08-02] MEDS: Melatonin 3 MG Tab PO SCH (19:33)
[2019-08-02] MEDS: Ketoconazole 2% Crm 30 GM Tube TOP SCH (19:36)
[2019-08-02] MEDS: Insulin Glargine,Human Rec. Analog 100 Units/ML 3 ML Pen SUBCUT SCH (19:40)
[2019-08-02] MEDS ORDERED: Gabapentin 300 MG Cap PO ONE (22:21)
[2019-08-03] MEDS ORDERED: traMADol 50 MG Tab ONE (06:48)
[2019-08-03] MEDS ORDERED: traMADol 50 MG Tab PO ONE (06:51)
[2019-08-03 08:46] VITALS: BP 150/76; PULSE 124
[2019-08-03] MEDS: Insulin Aspart 100 Units/ML 3 ML Pen SUBCUT SCH ×2 (08:47→14:12)
[2019-08-03] MEDS: QUEtiapine 25 MG Tab PO SCH (08:48)
[2019-08-03] MEDS: Nystatin Susp 100,000 Unit/ML 5 ML UD Cup PO SCH ×2 (08:49→13:40)
[2019-08-03] MEDS: Omeprazole 20 MG Cap.CR PO SCH (08:49)
[2019-08-03] MEDS: Furosemide 40 MG Tab PO SCH (08:50)
[2019-08-03] MEDS: Cholecalciferol (Vitamin D3) 2,000 Unit Cap PO SCH (08:50)
[2019-08-03] MEDS: Roflumilast 500 MCG Tab PO SCH (08:50)
[2019-08-03] MEDS: Metoprolol Tartrate 25 MG Tab PO SCH (08:50)
[2019-08-03] MEDS: guaiFENesin 600 MG Tab.ER PO SCH (08:50)
[2019-08-03] MEDS: predniSONE 10 MG Tab PO SCH (08:51)
[2019-08-03] MEDS: diphenhydrAMINE 25 MG Cap PO SCH (08:51)
[2019-08-03] MEDS: Diltiazem 240 MG Cap.ER PO SCH (08:51)
[2019-08-03] MEDS: Digoxin 125 MCG Tab PO SCH (08:52)
[2019-08-03] MEDS: Budesonide 0.5 MG/2 ML Neb Susp NEB SCH (08:53)
[2019-08-03] MEDS: Tiotropium Inhaler 18 MCG Inhalation Powder Cap Kit of 5 INH SCH (08:53)
--- NOTE | 2019-08-03 09:35 | PCM.DCSUM1 ---
Discharge Summary - Discharge Data Discharge Date: 08/03/19 Discharge Disposition: DC/Tfer W/I Hosp To [facility] Condition: Good - Referral to Home Health Primary Care Physician: PCP None - Discharge Diagnosis/Problem(s) (1) Atrial fibrillation with RVR SNOMED Code(s): 105050575326025 ICD Code: I48.91 - UNSPECIFIED ATRIAL FIBRILLATION Status: Resolved Current Visit: Yes (2) Pneumonia SNOMED Code(s): 633663687 ICD Code: J18.9 - PNEUMONIA, UNSPECIFIED ORGANISM Status: Resolved Priority: High Current Visit: Yes Qualifiers: Pneumonia type: due to unspecified organism Laterality: right Lung location: lower lobe of lung Qualified Code(s): J18.9 - Pneumonia, unspecified organism (3) Lesion of left lung SNOMED Code(s): 651460439 ICD Code: R91.1 - SOLITARY PULMONARY NODULE Status: Chronic Priority: High Current Visit: Yes (4) Lesion of right lung SNOMED Code(s): 490216508 ICD Code: R91.1 - SOLITARY PULMONARY NODULE Status: Suspected Priority: High Current Visit: Yes (5) Compression fracture of body of thoracic vertebra SNOMED Code(s): 036073983 ICD Code: S22.000A - WEDGE COMPRESSION FRACTURE OF UNSP THORACIC VERTEBRA, INIT Status: Suspected Priority: High Current Visit: Yes - Patient Summary/Data Consults: Consultations 07/31/19 11:18 OT Evaluation and Treatment [CONS] Routine Please Evaluate and Treat. OT Reason for Consult: ADL's This query below is only for informational purposes and is not editable. PT Evaluation and Treatment [CONS] Routine Please Evaluate and Treat. PT Reason for Consult: Strengthening This query below is only for informational purposes and is not editable. - Patient Instructions Diet: Usual Diet as Tolerated Activity: As Tolerated Driving: Do Not Drive - Discharge Plan Home Medications: Home Meds guaiFENesin [Mucinex] 1,200 mg PO BID 10/02/14 [History] Omeprazole 20 mg PO DAILY 11/04/14 [History] Desvenlafaxine [Pristiq] 50 mg PO QPM 01/03/16 [History] traMADol [Ultram] 50 mg PO TID 01/03/16 [History] Melatonin 5 mg PO BEDTIME 06/22/16 [History] Multivitamins [Childrens Chewable Vitamin] 1 tab PO DAILY@1200 06/22/16 [History ] Digoxin [Lanoxin] 125 mcg PO DAILY tablet 04/01/17 [Rx] Insulin Aspart [NovoLOG] 0 unit SUBCUT TIDMEALS pen 04/01/17 [Rx] Formoterol Fumarate [Perforomist] 1 vial INH BID 09/27/17 [History] Furosemide 40 mg PO DAILY 09/27/17 [History] Montelukast Sodium 10 mg PO PCLUNCH 09/27/17 [History] Roflumilast [Daliresp] 500 mcg PO DAILY 09/27/17 [History] Metoprolol Tartrate [Lopressor] 25 mg PO Q12HR 30 Days #60 tab 09/29/17 [Rx] QUEtiapine [SEROquel] 25 mg PO BEDTIME 06/05/18 [History] Cholecalciferol (Vitamin D3) [Vitamin D3] 2,000 unit PO DAILY 02/16/19 [History] Insulin Glargine,Hum.Rec.Anlog [Basaglar Kwikpen U-100] 18 units SQ BEDTIME [History] Nystatin 1 dose PO TID 02/16/19 [History] diphenhydrAMINE HCl [Banophen] 25 mg PO BID 02/16/19 [History] predniSONE [Prednisone] 10 mg PO DAILY #28 tablet 02/16/19 [Rx] Diltiazem HCl [Cartia Xt] 240 mg PO DAILY 03/05/19 [History] QUEtiapine [SEROquel] 12.5 mg PO DAILY 03/05/19 [History] hydrOXYzine HCL [hydrOXYzine] 25 mg PO TID PRN 03/05/19 [History] Albuterol [Proventil Neb Soln] 2.5 mg NEB Q6H PRN neb 03/06/19 [Rx] Albuterol [Ventolin HFA] 8 gm INH Q4H PRN inhaler 03/06/19 [Rx] Budesonide [Pulmicort] 0.5 mg NEB BID neb 03/06/19 [Rx] Umeclidinium [place] [Incruse Ellipta] 1 puff IH DAILY 03/06/19 [Rx] Warfarin Sodium [Coumadin] 8 mg PO DAILY@1800 03/06/19 [Rx] Fluconazole [Diflucan] 150 mg PO ONETIME #2 tab 06/29/19 [Rx] Forms: ED Department Discharge Referrals: PCP,None [Primary Care Provider] - - Discharge Summary/Plan Comment DC Time >30 min.: Yes Discharge Summary/Plan Comment: Counseled on discharge to swing bed and management. Patient agrees to work with PT/OT for 1 hour daily on weekdays for rehabilitation to and above baseline if possible. She maintains she is very weak and short of breath with any exertion. Patient meds remain the same and we will slowly titrate her pain medications due to sedation and increased confusion with use. Discussed respite care if patient fails PT/OT. Discussed alternatives like care center admission if symptoms persist. - Patient Data Vitals - Most Recent: Last Vital Signs Temp 36.8 C 08/03/19 08:00 Pulse 124 H 08/03/19 08:52 Resp 22 H 08/02/19 21:45 BP 150/76 H 08/03/19 08:50 Pulse Ox 95 08/03/19 08:00 Weight - Most Recent: 72.575 kg I&O - Last 24 hours: Intake & Output 08/02/19 08/03/19 08/03/19 22:59 06:59 14:59 Intake Total 1150 Balance 1150 Lab Results - Last 24 hrs: Laboratory Results - last 24 hr 08/02/19 08/02/19 08/02/19 Range/Units 11:19 16:06 18:29 WBC (4.0-11.0) K/uL RBC (3.80-5.80) M/uL Hgb (11.5-16.5) g/dL Hct (37.0-47.0) % MCV (76-96) fL MCH (27.0-32.0) pg MCHC (31.0-35.0) g/dL RDW (11.0-16.0) % Plt Count (150-500) K/uL MPV (6.0-10.0) fL Neut % (Auto) (45.0-70.0) % Lymph % (Auto) (20.0-40.0) % [place] % (Auto) (3.0-10.0) % Eos % (Auto) (1.0-5.0) % Baso % (Auto) (0.0-0.5) % Neut # (Auto) (2.00-7.50) K/uL Lymph # (Auto) (1.50-4.00) K/uL [place] # (Auto) (0.20-0.80) K/uL Eos # (Auto) (0.04-0.40) K/uL Baso # (Auto) (0.02-0.10) K/uL Sodium (136-145) mmol/L Potassium (3.5-5.1) mmol/L Chloride (98-107) mmol/L Carbon Dioxide (21.0-32.0) mmol/L Anion Gap (5.0-15.0) mmol/L BUN (8-26) mg/dL Creatinine (0.55-1.02) mg/dL Est Cr Clr Drug Dosing mL/min Estimated GFR (MDRD) (>60) MLS/MIN BUN/Creatinine Ratio (6-25) Glucose (74-100) mg/dL POC Glucose 99 228 H 221 H (74-110) mg/dL Calcium (8.5-10.1) mg/dL 08/03/19 08/03/19 08/03/19 Range/Units 07:00 07:00 07:38 WBC 8.9 (4.0-11.0) K/uL RBC 4.21 (3.80-5.80) M/uL Hgb 11.5 (11.5-16.5) g/dL Hct 36.7 L (37.0-47.0) % MCV 87 (76-96) fL MCH 27.3 (27.0-32.0) pg MCHC 31.3 (31.0-35.0) g/dL RDW 15.7 (11.0-16.0) % Plt Count 291 (150-500) K/uL MPV 9.3 (6.0-10.0) fL Neut % (Auto) 67.4 (45.0-70.0) % Lymph % (Auto) 15.8 L (20.0-40.0) % [place] % (Auto) 14.6 H (3.0-10.0) % Eos % (Auto) 2.0 (1.0-5.0) % Baso % (Auto) 0.2 (0.0-0.5) % Neut # (Auto) 6.01 (2.00-7.50) K/uL Lymph # (Auto) 1.41 L (1.50-4.00) K/uL [place] # (Auto) 1.30 H (0.20-0.80) K/uL Eos # (Auto) 0.18 (0.04-0.40) K/uL Baso # (Auto) 0.02 (0.02-0.10) K/uL Sodium 139 (136-145) mmol/L Potassium 3.3 L (3.5-5.1) mmol/L Chloride 94 L (98-107) mmol/L Carbon Dioxide 43.4 H (21.0-32.0) mmol/L Anion Gap 4.9 L (5.0-15.0) mmol/L BUN 10 (8-26) mg/dL Creatinine 1.25 H (0.55-1.02) mg/dL Est Cr Clr Drug Dosing 38.09 mL/min Estimated GFR (MDRD) 43 L (>60) MLS/MIN BUN/Creatinine Ratio 8.0 (6-25) Glucose 83 D (74-100) mg/dL POC Glucose 91 (74-110) mg/dL Calcium 8.8 (8.5-10.1) mg/dL [facility] Results - Last 24 hrs: Microbiology 07/31/19 12:10 Aerobic Blood Culture - Preliminary Blood - Arm, Left NO GROWTH AFTER 2 DAYS Anaerobic Blood Culture - Preliminary NO GROWTH AFTER 2 DAYS 07/31/19 11:20 Aerobic Blood Culture - Preliminary Blood - Arm, Right NO GROWTH AFTER 2 DAYS Anaerobic Blood Culture - Preliminary NO GROWTH AFTER 2 DAYS Med Orders - Current: Current Medications Acetaminophen (Tylenol) 650 mg PO Q6H PRN PRN Reason: Pain (moderate 4-6) Last Admin: 08/02/19 15:19 Dose: 650 mg Albuterol (Proventil Neb Soln) 2.5 mg NEB Q6H PRN PRN Reason: Shortness of Breath Last Admin: 08/02/19 22:05 Dose: 2.5 mg Albuterol (Ventolin Hfa) 0 gm INH Q4H PRN PRN Reason: Shortness of Breath Last Admin: 08/02/19 19:54 Dose: 2 inhalation Budesonide (Pulmicort) 0.5 mg NEB BID [facility] Last Admin: 08/03/19 08:53 Dose: 0.5 mg Ceftriaxone Sodium (Rocephin) 1 gm IVPUSH Q24H [facility] Last Admin: 08/02/19 13:14 Dose: 1 gm Cholecalciferol (Vitamin D3) 2,000 unit PO DAILY [facility] Last Admin: 08/03/19 08:50 Dose: 2,000 unit Desvenlafaxine Succinate (Pristiq) 50 mg PO QPM [facility] Last Admin: 08/02/19 19:32 Dose: 50 mg Digoxin (Lanoxin) 125 mcg PO DAILY [facility] Last Admin: 08/03/19 08:52 Dose: 125 mcg Diltiazem HCl (Dilacor Xr) 240 mg PO DAILY [facility] Last Admin: 08/03/19 08:51 Dose: 240 mg Diphenhydramine HCl (Benadryl) 25 mg PO BID [facility] Last Admin: 08/03/19 08:51 Dose: 25 mg Furosemide (Lasix) 40 mg PO DAILY [facility] Last Admin: 08/03/19 08:50 Dose: 40 mg Guaifenesin (Mucinex) 1,200 mg PO BID [facility] Last Admin: 08/03/19 08:50 Dose: 1,200 mg Hydroxyzine HCl (Atarax) 25 mg PO TID PRN PRN Reason: Anxiety Last Admin: 08/02/19 23:09 Dose: 25 mg Azithromycin 500 mg/ Sodium (Chloride) 250 mls @ 250 mls/hr IV Q24H [facility] Last Admin: 08/02/19 13:54 Dose: 250 mls/hr Dextrose/Water (Dextrose 5% In Water) 1,000 mls @ 75 mls/hr IV ASDIRECTED [facility] Last Admin: 08/02/19 21:00 Dose: 75 mls/hr Ibuprofen (Motrin) 600 mg PO Q6H PRN PRN Reason: Pain (moderate 4-6) Last Admin: 08/02/19 15:22 Dose: 600 mg Insulin Aspart (Novolog) 10 unit SUBCUT TIDMEALS [facility] Last Admin: 08/03/19 08:47 Dose: Not Given Insulin Glargine (Lantus Solostar) 18 units SUBCUT BEDTIME [facility] Last Admin: 08/02/19 19:40 Dose: 18 units Ketoconazole (Nizoral 2% Crm) 0 gm TOP BID [facility] Last Admin: 08/02/19 19:36 Dose: 1 applic Melatonin (Melatonin) 3 mg PO BEDTIME [facility] Last Admin: 08/02/19 19:33 Dose: 3 mg Metoprolol Tartrate (Lopressor) 25 mg PO Q12HR [facility] Last Admin: 08/03/19 08:50 Dose: 25 mg Montelukast Sodium (Singulair) 10 mg PO PCLUNCH [facility] Last Admin: 08/02/19 13:55 Dose: 10 mg Multivitamins/Minerals/Vitamin C (Childrens Chewable Vitamin) 1 tab PO DAILY@ 1200 [facility] Last Admin: 08/02/19 13:14 Dose: 1 tab Non-Formulary Medication (Formoterol Fumarate [Perforomist]) 1 vial INH BID [facility] Nystatin (Mycostatin) 5 ml PO TID [facility] Last Admin: 08/03/19 08:49 Dose: 5 ml Omeprazole (Omeprazole) 20 mg PO DAILY [facility] Last Admin: 08/03/19 08:49 Dose: 20 mg Prednisone (Prednisone) 10 mg PO DAILY [facility] Last Admin: 08/03/19 08:51 Dose: 10 mg Quetiapine Fumarate (Seroquel) 12.5 mg PO DAILY [facility] Last Admin: 08/03/19 08:48 Dose: 12.5 mg Quetiapine Fumarate (Seroquel) 25 mg PO BEDTIME [facility] Last Admin: 08/02/19 19:34 Dose: 25 mg Roflumilast (Daliresp) 500 mcg PO DAILY [facility] Last Admin: 08/03/19 08:50 Dose: 500 mcg Sodium Chloride (Saline Flush) 10 ml FLUSH ASDIRECTED PRN PRN Reason: Keep Vein Open Tiotropium Hardy (Spiriva Handihaler) 18 mcg INH DAILY [facility] Last Admin: 08/03/19 08:53 Dose: 18 mcg Tramadol HCl (Ultram) 50 mg PO TID [facility] Last Admin: 08/01/19 13:29 Dose: 50 mg Warfarin Sodium (Coumadin) 6 mg PO DAILY@1800 [facility] Last Admin: 08/02/19 18:08 Dose: Not Given Warfarin Sodium (Coumadin) 2 mg PO DAILY@1800 [facility] Last Admin: 08/02/19 18:04 Dose: 2 mg Discontinued Medications Gabapentin (Neurontin) 300 mg PO ONETIME ONE Stop: 08/02/19 22:22 Last Admin: 08/02/19 22:28 Dose: 300 mg Sodium Chloride (Normal Saline) 1,000 mls @ 250 mls/hr IV ASDIRECTED [facility] Last Admin: 07/31/19 16:50 Dose: 250 mls/hr Azithromycin 500 mg/ Sodium (Chloride) 250 mls @ 250 mls/hr IV Q24H [facility] Last Admin: 07/31/19 12:31 Dose: 250 mls/hr Azithromycin 500 mg/ Sodium (Chloride) 250 mls @ 250 mls/hr IV Q24H [facility] Last Admin: 07/31/19 16:33 Dose: Not Given Sodium Chloride (Normal Saline) 1,000 mls @ 125 mls/hr IV ASDIRECTED [facility] Last Admin: 07/31/19 18:47 Dose: 125 mls/hr Morphine Sulfate (Morphine) 2 mg IVPUSH ONETIME ONE Stop: 07/31/19 08:54 Last Admin: 07/31/19 09:12 Dose: 2 mg Morphine Sulfate (Morphine) Confirm Administered Dose 2 mg .ROUTE .STK-MED ONE Stop: 07/31/19 09:11 Last Admin: 07/31/19 12:17 Dose: Not Given Tramadol HCl (Ultram) Confirm Administered Dose 50 mg .ROUTE .STK-MED ONE Stop: 08/03/19 06:49 Last Admin: 08/03/19 07:00 Dose: Not Given Tramadol HCl (Ultram) 50 mg PO ONETIME ONE Stop: 08/03/19 06:52 Last Admin: 08/03/19 06:50 Dose: 50 mg Warfarin Sodium (Coumadin) Confirm Administered Dose 6 mg .ROUTE .STK-MED ONE Stop: 07/31/19 17:35 Last Admin: 07/31/19 17:46 Dose: Not Given Warfarin Sodium (Coumadin) Confirm Administered Dose 6 mg .ROUTE .STK-MED ONE Stop: 08/01/19 18:27 Last Admin: 08/01/19 18:45 Dose: 6 mg Warfarin Sodium (Coumadin) Confirm Administered Dose 1 mg .ROUTE .STK-MED ONE Stop: 08/02/19 18:01 Last Admin: 08/02/19 18:07 Dose: 1 mg Warfarin Sodium (Coumadin) Confirm Administered Dose 5 mg .ROUTE .STK-MED ONE Stop: 08/02/19 18:01 Last Admin: 08/02/19 18:06 Dose: 5 mg
[2019-08-03] MEDS: Azithromycin 500 MG in Sodium Chloride 0.9% 250 ML IV SCH (13:41)
[2019-08-03] MEDS: Multivitamin, Childrens Tab.Chew PO SCH (13:41)
[2019-08-03] MEDS: Montelukast 10 MG Tab PO SCH (13:41)
[2019-08-03] MEDS: Ketoconazole 2% Crm 30 GM Tube TOP SCH (13:43)
[2019-08-03] MEDS ORDERED: cefTRIAXone 1 GM Vial ONE (13:47)
[2019-08-03] MEDS: cefTRIAXone 1 GM Vial IVPUSH SCH (13:49)
[2019-08-03] MEDS: Acetaminophen 325 MG Tab PO PRN (15:44)
== END 2019-08-03 12:00 | disposition swing bed (61) | DRG 551 ==
LOC: LB.ED 08:46 → LB.MS 11:18
PROVIDERS: ADMIT Family Medicine; ATTEND Family Medicine
DX: S22.060A Wedge compression fracture of T7-T8 vertebra, initial encounter for closed fracture (principal); J18.9 Pneumonia, unspecified organism; J18.1 Lobar pneumonia, unspecified organism; I48.91 Unspecified atrial fibrillation; S22.070A Wedge compression fracture of T9-T10 vertebra, initial encounter for closed fracture; I13.0 Hypertensive heart and chronic kidney disease with heart failure and stage 1 through stage 4 chronic kidney disease, or unspecified chronic kidney disease; N18.9 Chronic kidney disease, unspecified; M19.90 Unspecified osteoarthritis, unspecified site; M54.9 Dorsalgia, unspecified; G89.29 Other chronic pain; M54.2 Cervicalgia; E11.22 Type 2 diabetes mellitus with diabetic chronic kidney disease; S22.080A Wedge compression fracture of T11-T12 vertebra, initial encounter for closed fracture; S22.000A Wedge compression fracture of unspecified thoracic vertebra, initial encounter for closed fracture; H91.90 Unspecified hearing loss, unspecified ear; H54.7 Unspecified visual loss; I50.9 Heart failure, unspecified; R91.1 Solitary pulmonary nodule; K59.09 Other constipation; K21.9 Gastro-esophageal reflux disease without esophagitis; Z87.440 Personal history of urinary (tract) infections; E11.9 Type 2 diabetes mellitus without complications; F32.9 Major depressive disorder, single episode, unspecified; F41.9 Anxiety disorder, unspecified; D64.9 Anemia, unspecified; Z88.0 Allergy status to penicillin; Z88.2 Allergy status to sulfonamides; Z91.013 Allergy to seafood; Z88.8 Allergy status to other drugs, medicaments and biological substances; Z79.4 Long term (current) use of insulin; Z79.01 Long term (current) use of anticoagulants; Z79.899 Other long term (current) drug therapy; Z90.710 Acquired absence of both cervix and uterus; W19.XXXA Unspecified fall, initial encounter
CPT/HCPCS: 36415; 71250; 72125; 72128; 72131; 74176; 80048; 80053; 82800; 82947; 82962; 83605; 83880; 84443; 84484; 85025; 85610; 87040; 87804; 87804-59; 93005; 97110-GP; 97161-GP; 97165-GO; 97530-GP; A0425; A0429; A9270-GY; J0456; J0696; J1815-GY; J2270; J7030; J7050; J7060

== ENCOUNTER 2019-08-03 11:53 | Inpatient (IN) | payer MEDICARE, MEDICAID ==
[2019-08-03] MEDS ORDERED: Tuberculin, PPD 5 Units/0.1 ML 1 ML MDV IDERM ONE (11:58)
--- NOTE | 2019-08-03 11:59 | PCM.HP.2 ---
H&P History of Present Illness - General Date of Service: 08/03/19 Admit Problem/Dx: Admission Diagnosis/Problem Admission Diagnosis/Problem Weakness Source of Information: Patient History Limitations: Reports: No Limitations - History of Present Illness Initial Comments - Free Text/Narative: This is a 64yo F discharged from Inpatient hospital stay to subacute rehabilitation for continued weakness and inability to do self cares and ambulate. Patient states she feels too weak and can't get out of bed. She has severe COPD and Obesity which compounds her symptoms. Duration of Symptoms: Reports: Constant Severity: Moderate Improves with: Reports: None Worsens with: Reports: None Associated Symptoms: Reports: Shortness of Breath, Weakness - Related Data Allergies/Adverse Reactions: Allergies Allergy/AdvReac Type Severity Reaction Status Date / Time Penicillins Allergy Unknown Edema Verified 07/31/19 10:30 shellfish derived Allergy Unknown Anaphylactic Verified 07/31/19 10:30 Shock Sulfa (Sulfonamide Allergy Unknown Edema Verified 07/31/19 10:30 Antibiotics) clonidine AdvReac Intermediate Lethargy Verified 07/31/19 10:30 klonopin AdvReac Lethargy Uncoded 07/31/19 10:30 Home Medications: Home Meds guaiFENesin [Mucinex] 1,200 mg PO BID 10/02/14 [History] Omeprazole 20 mg PO DAILY 11/04/14 [History] Desvenlafaxine [Pristiq] 50 mg PO QPM 01/03/16 [History] traMADol [Ultram] 50 mg PO TID 01/03/16 [History] Melatonin 5 mg PO BEDTIME 06/22/16 [History] Multivitamins [Childrens Chewable Vitamin] 1 tab PO DAILY@1200 06/22/16 [History ] Digoxin [Lanoxin] 125 mcg PO DAILY tablet 04/01/17 [Rx] Insulin Aspart [NovoLOG] 0 unit SUBCUT TIDMEALS pen 04/01/17 [Rx] Formoterol Fumarate [Perforomist] 1 vial INH BID 09/27/17 [History] Furosemide 40 mg PO DAILY 09/27/17 [History] Montelukast Sodium 10 mg PO PCLUNCH 09/27/17 [History] Roflumilast [Daliresp] 500 mcg PO DAILY 09/27/17 [History] Metoprolol Tartrate [Lopressor] 25 mg PO Q12HR 30 Days #60 tab 09/29/17 [Rx] QUEtiapine [SEROquel] 25 mg PO BEDTIME 06/05/18 [History] Cholecalciferol (Vitamin D3) [Vitamin D3] 2,000 unit PO DAILY 02/16/19 [History] Insulin Glargine,Hum.Rec.Anlog [Basaglar Kwikpen U-100] 18 units SQ BEDTIME [History] Nystatin 1 dose PO TID 02/16/19 [History] diphenhydrAMINE HCl [Banophen] 25 mg PO BID 02/16/19 [History] predniSONE [Prednisone] 10 mg PO DAILY #28 tablet 02/16/19 [Rx] Diltiazem HCl [Cartia Xt] 240 mg PO DAILY 03/05/19 [History] QUEtiapine [SEROquel] 12.5 mg PO DAILY 03/05/19 [History] hydrOXYzine HCL [hydrOXYzine] 25 mg PO TID PRN 03/05/19 [History] Albuterol [Proventil Neb Soln] 2.5 mg NEB Q6H PRN neb 03/06/19 [Rx] Albuterol [Ventolin HFA] 8 gm INH Q4H PRN inhaler 03/06/19 [Rx] Budesonide [Pulmicort] 0.5 mg NEB BID neb 03/06/19 [Rx] Umeclidinium [place] [Incruse Ellipta] 1 puff IH DAILY 03/06/19 [Rx] Warfarin Sodium [Coumadin] 8 mg PO DAILY@1800 03/06/19 [Rx] Fluconazole [Diflucan] 150 mg PO ONETIME #2 tab 06/29/19 [Rx] Past Medical History HEENT History: Reports: Allergic Rhinitis, Hard of Hearing, Impaired Vision, Other (See Below) Other HEENT History: trach placed x 2 years ago Cardiovascular History: Reports: Heart Failure, Hypertension, Other (See Below) Other Cardiovascular History: a flutter Respiratory History: Reports: SOB Other Respiratory History: SOB excessive plegm Gastrointestinal History: Reports: Chronic Constipation, GERD Genitourinary History: Reports: Chronic Renal Insuffiency, UTI, Recurrent Other Genitourinary History: no uti recently 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 OB/BYN History: hysterectomy Musculoskeletal History: Reports: Arthritis, Back Pain, Chronic, Neck Pain, Chronic Neurological History: Reports: Migraines Psychiatric History: Reports: Anxiety, Depression Endocrine/Metabolic History: Reports: Diabetes, Type II Hematologic History: Reports: Anemia Oncologic (Cancer) History: Reports: Lung Dermatologic History: Reports: Other (See Below) Other Dermatologic History: bruises easily - Infectious Disease History Infectious Disease History: Reports: Chicken Pox, 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, Other - Past Surgical History HEENT Surgical History: Reports: Other (See Below) GI Surgical History: Reports: Hernia, Abdominal Oncologic Surgical History: Reports: Other (See Below) Other Oncologic Surgeries/Procedures: hx biopsy of lung for cancer diagnosis Social & Family History - Family History Family Medical History: Noncontributory Cardiac: Reports: Hypertension Respiratory: Reports: Asthma, COPD Psychiatric: Reports: Anxiety - Caffeine Use Caffeine Use: Reports: None - Living Situation & Occupation Living situation: Reports: Single, with Significant Other Occupation: Disabled H&P Review of Systems - Review of Systems: Review Of Systems: Comprehensive ROS is negative, except as noted in HPI. Exam - Exam Exam: See Below - Exam Quality Assessment: Supplemental Oxygen General: Alert, Oriented, Cooperative HEENT: PERRLA, Conjunctiva Clear, EACs Clear Neck: Supple, Trachea Midline Lungs: Decreased Breath Sounds, Rhonchi, Wheezing Cardiovascular: Regular Rate, Regular Rhythm GI/Abdominal Exam: Normal Bowel Sounds, Soft, Non-Tender Back Exam: Normal Inspection Extremities: Normal Inspection Peripheral Pulses: 2+: Dorsalis Pedis (L), Dorsalis Pedis (R) Skin: Warm, Dry, Intact Neurological: Cranial Nerves Intact, Reflexes Equal Bilateral - Problem List (1) Diabetes type 2, controlled SNOMED Code(s): 09526122, 580487693 ICD Code: E11.9 - TYPE 2 DIABETES MELLITUS WITHOUT COMPLICATIONS Status: Acute (2) Generalized weakness SNOMED Code(s): 18841277 ICD Code: R53.1 - WEAKNESS Status: Acute Priority: High (3) Shortness of breath SNOMED Code(s): 530626142 ICD Code: R06.02 - SHORTNESS OF BREATH Status: Acute (4) CHF, Congestive heart failure SNOMED Code(s): 86471724 ICD Code: I50.9 - HEART FAILURE, UNSPECIFIED Status: Chronic Priority: Medium Problem Details: 08/14/2013 Continue with Lasix po and weight will do Chem 8 today. (5) COLD, Chronic obstructive lung disease SNOMED Code(s): 38017422 ICD Code: J44.9 - CHRONIC OBSTRUCTIVE PULMONARY DISEASE, UNSPECIFIED Status : Chronic Priority: High Onset Date: Unknown Problem Details: 11/14/2014 patient was given a nebulizer on the ambulance and she doesnt seem in distress. Blood gases done via venous with ph 7.42 and pco2 67, po2 43.6 At this time will continue with normal meds as at home. (6) Depression SNOMED Code(s): 74556332 ICD Code: F32.9 - MAJOR DEPRESSIVE DISORDER, SINGLE EPISODE, UNSPECIFIED Status: Chronic Priority: Low (7) HTN (hypertension) SNOMED Code(s): 53021771 ICD Code: I10 - ESSENTIAL (PRIMARY) HYPERTENSION Status: Chronic Priority : Low Problem List Initiated/Reviewed/Updated: Yes Orders Last 24hrs: Active Orders 24 hr Category Date Time Status Patient Status [ADT] Routine ADT 08/03/19 11:58 Ordered Consult to Social Staff Worker [CONS] Routine Cons 08/03/19 11:58 Ordered Consult to Home Health [CONS] Routine Cons 08/03/19 11:58 Ordered Consult to Infection Prevention [CONS] Routine Cons 08/03/19 11:58 Ordered OT Evaluation and Treatment [CONS] Routine Cons 08/03/19 11:58 Ordered PT Evaluation and Treatment [CONS] Routine Cons 08/03/19 11:58 Ordered Tuberculin, PPD [AplisoL] Med 08/03/19 11:58 Once 5 unit IDERM ONETIME ONE Resuscitation Status Routine Resus Stat 08/03/19 11:58 Ordered Assessment/Plan Comment:: Patient to be admitted to swing bed for rehabilitation and PT/OT. Patient agrees to work with PT/OT as directed. Patient has been non-compliant in the past multiple times.
[2019-08-03] MEDS ORDERED: Acetaminophen 325 MG Tab PO PRN (14:57)
[2019-08-03] MEDS ORDERED: hydrOXYzine HCl 25 MG Tab PO PRN ×2 (14:58→15:11)
[2019-08-03] MEDS ORDERED: Albuterol 8 GM Inhaler INH PRN ×2 (14:58→15:11)
[2019-08-03] MEDS ORDERED: Metoprolol Tartrate 25 MG Tab PO SCH (15:00)
[2019-08-03] MEDS ORDERED: Albuterol 0.083% 2.5 MG/3 ML Neb Soln NEB PRN (15:11)
[2019-08-03] MEDS ORDERED: Insulin Aspart 100 Units/ML 3 ML Pen SUBCUT SCH (18:00)
[2019-08-03] MEDS ORDERED: Insuln Aspart Prot/Insulin Aspart 100 Units/ML 3 ML FlexPen SUBCUT SCH (18:00)
[2019-08-03] MEDS ORDERED: Warfarin 2 MG Tab PO SCH (18:00)
[2019-08-03] MEDS ORDERED: WARFARIN SODIUM 8 MG PO SCH (18:00)
[2019-08-03] MEDS: Albuterol 0.083% 2.5 MG/3 ML Neb Soln NEB SCH ×3 (18:00→23:32)
[2019-08-03] MEDS ORDERED: Non-Formulary Medication 1 Each (Melatonin [Melatonin] 5 MG) PO SCH (20:00)
[2019-08-03] MEDS ORDERED: FORMOTEROL FUMARATE INH SCH (20:00)
[2019-08-03] MEDS ORDERED: Desvenlafaxine 50 MG Tab.ER PO SCH ×2 (20:00)
[2019-08-03] MEDS ORDERED: guaiFENesin 600 MG Tab.ER PO SCH (20:00)
[2019-08-03] MEDS ORDERED: Budesonide 0.5 MG/2 ML Neb Susp NEB SCH (20:00)
[2019-08-03] MEDS ORDERED: Insulin Glargine,Human Rec. Analog 100 Units/ML 3 ML Pen SUBCUT SCH ×2 (20:00)
[2019-08-03] MEDS ORDERED: QUEtiapine 25 MG Tab PO SCH ×2 (20:00)
[2019-08-03] MEDS ORDERED: Melatonin 3 MG Tab PO SCH (20:00)
[2019-08-03] MEDS: Insulin Aspart 100 Units/ML 3 ML Pen SUBCUT SCH (21:09)
[2019-08-03] MEDS: diphenhydrAMINE 25 MG Cap PO SCH (21:13)
[2019-08-03] MEDS: Nystatin Susp 100,000 Unit/ML 5 ML UD Cup PO SCH (21:13)
[2019-08-03] MEDS: guaiFENesin 600 MG Tab.ER PO SCH (21:14)
[2019-08-03] MEDS: Metoprolol Tartrate 25 MG Tab PO SCH (21:14)
[2019-08-03] MEDS: Budesonide 0.5 MG/2 ML Neb Susp NEB SCH (21:15)
[2019-08-03] MEDS: Ketoconazole 2% Crm 30 GM Tube TOP SCH (21:16)
[2019-08-03] MEDS: Ibuprofen 600 MG Tab PO PRN (23:05)
[2019-08-04] MEDS: Ibuprofen 600 MG Tab PO PRN (05:33)
[2019-08-04] MEDS: Albuterol 0.083% 2.5 MG/3 ML Neb Soln NEB SCH (06:43)
[2019-08-04] MEDS ORDERED: DILTIAZEM HCL 240 MG PO SCH (08:00)
[2019-08-04] MEDS ORDERED: Non-Formulary Medication 1 Each (Cholecalciferol (Vitamin D3) [Vitamin D3] 2,000 UNIT) PO SCH (08:00)
[2019-08-04] MEDS ORDERED: Roflumilast 500 MCG Tab PO SCH (08:00)
[2019-08-04] MEDS ORDERED: Digoxin 125 MCG Tab PO SCH ×2 (08:00)
[2019-08-04] MEDS ORDERED: Montelukast 10 MG Tab PO SCH ×2 (08:00→14:00)
[2019-08-04] MEDS ORDERED: Cholecalciferol (Vitamin D3) 2,000 Unit Cap PO SCH (08:00)
[2019-08-04] MEDS ORDERED: Diltiazem 120 MG Cap.CD PO SCH (08:00)
[2019-08-04] MEDS ORDERED: QUEtiapine 25 MG Tab PO SCH (08:00)
[2019-08-04] MEDS ORDERED: Tiotropium Inhaler 18 MCG Inhalation Powder Cap Kit of 5 INH SCH (08:00)
[2019-08-04] MEDS ORDERED: predniSONE 10 MG Tab PO SCH ×2 (08:00)
[2019-08-04] MEDS ORDERED: Non-Formulary Medication 1 Each (Umeclidinium Bromide [Incruse Ellipta] 1 PUFF) IH SCH (08:00)
[2019-08-04] MEDS ORDERED: Furosemide 40 MG Tab PO SCH ×2 (08:00)
[2019-08-04] MEDS ORDERED: Multivitamin, Childrens Tab.Chew PO SCH ×2 (08:00→12:00)
[2019-08-04] MEDS ORDERED: Omeprazole 20 MG Cap.CR PO SCH ×2 (08:00)
[2019-08-04 08:16] VITALS: BP 127/66
[2019-08-04] MEDS: Metoprolol Tartrate 25 MG Tab PO SCH (08:18)
[2019-08-04] MEDS: diphenhydrAMINE 25 MG Cap PO SCH (08:19)
[2019-08-04] MEDS: Nystatin Susp 100,000 Unit/ML 5 ML UD Cup PO SCH (08:20)
[2019-08-04] MEDS: guaiFENesin 600 MG Tab.ER PO SCH (08:20)
[2019-08-04] MEDS: Ketoconazole 2% Crm 30 GM Tube TOP SCH (08:22)
[2019-08-04] MEDS: Budesonide 0.5 MG/2 ML Neb Susp NEB SCH (08:23)
[2019-08-04 08:28] VITALS: PULSE 113
[2019-08-04] MEDS: Insulin Aspart 100 Units/ML 3 ML Pen SUBCUT SCH (08:41)
--- NOTE | 2019-08-04 16:53 | DISCH ---
HISTORY: This 64-year-old woman with a history of pneumonia, atrial fibrillation, and COPD as well as congestive heart failure, and a number of other medical problems was admitted by Dr. Olvera on 07/31/2019. She was treated with antibiotics for pneumonia. The details of her hospitalization are as outlined in her progress notes sheet. The patient had been improving and was receiving respiratory therapy. She was transferred to swing bed status on Tuesday and this is a patient with whom I was not familiar. Somewhat abruptly today, the patient became combative, belligerent and demanding of the nursing staff. She resorted to name calling and so forth and demanded to be discharged from the hospital. At that time, I was busy seeing patients in the emergency department and the patient threatened to leave the hospital against medical advice. She demanded to be discharged immediately, and she became even more belligerent. The patient threatened to leave AMA. Her home healthcare provider arrived to take her home. I was finally able to visit with her prior to her discharge, whereupon she told me she was feeling well. She wants to discontinue what she was receiving here in the hospital and simply wanted to go home. I did ask that she be followed up by Dr. Olvera as an outpatient and to this she agreed. Discharge diagnosis: Pneumonia, clinically improved/resolved. Followup: Dr Olvera next week. ARMEN/SVETLANA /[id number] MTDD
== END 2019-08-04 12:30 | disposition home or self-care (01) | DRG 947 ==
LOC: LB.MS 11:58
PROVIDERS: ADMIT Family Medicine; ATTEND Family Medicine
DX: R53.1 Weakness (principal); J18.9 Pneumonia, unspecified organism; I13.0 Hypertensive heart and chronic kidney disease with heart failure and stage 1 through stage 4 chronic kidney disease, or unspecified chronic kidney disease; J44.0 Chronic obstructive pulmonary disease with (acute) lower respiratory infection; H91.90 Unspecified hearing loss, unspecified ear; H54.7 Unspecified visual loss; I50.9 Heart failure, unspecified; K21.9 Gastro-esophageal reflux disease without esophagitis; N18.9 Chronic kidney disease, unspecified; I48.91 Unspecified atrial fibrillation; M19.90 Unspecified osteoarthritis, unspecified site; M54.9 Dorsalgia, unspecified; M54.2 Cervicalgia; G89.29 Other chronic pain; G43.909 Migraine, unspecified, not intractable, without status migrainosus; F32.9 Major depressive disorder, single episode, unspecified; E11.22 Type 2 diabetes mellitus with diabetic chronic kidney disease; Z88.2 Allergy status to sulfonamides; Z88.8 Allergy status to other drugs, medicaments and biological substances; Z91.013 Allergy to seafood; Z79.899 Other long term (current) drug therapy; Z90.710 Acquired absence of both cervix and uterus; Z79.4 Long term (current) use of insulin; Z79.51 Long term (current) use of inhaled steroids; Z79.01 Long term (current) use of anticoagulants; Z88.0 Allergy status to penicillin; Z85.118 Personal history of other malignant neoplasm of bronchus and lung
CPT/HCPCS: 82962; 97110-GO; A9270-GY

== ENCOUNTER 2019-08-14 13:13 | Emergency (ER) | payer MEDICARE, MEDICAID ==
[2019-08-14] MEDS ORDERED: Sodium Chloride 0.9% 10 ML Syringe FLUSH PRN (13:25)
[2019-08-14] MEDS ORDERED: EPINEPHrine 1 MG/ML 30 ML MDV IVPUSH ONE ×2 (13:30→13:31)
--- NOTE | 2019-08-14 14:29 | EDM.PDOC ---
ED HPI GENERAL MEDICAL PROBLEM - General Chief Complaint: CPR in Progress Stated Complaint: UNRESPONSIVE Time Seen by Provider: 08/14/19 13:13 Source of Information: Reports: EMS History Limitations: Reports: Other (nonresponsive) - History of Present Illness INITIAL COMMENTS - FREE TEXT/NARRATIVE: 64 yo female presents to ER via ambulance with CPR in progress. Report CPR started in home around 12:30pm. Pt with history of severe COPD and trach. Beck in progress and oxygen high flow through trach. No response from pt. Contact Dr Olvera for assist and staff contacted flight crew for transfer. Daughter, Tanna is here and states pt did want a full code/CPR. Yoli, cousin to Tanna is here with her. I did discuss CPR in progress for extended period of time and limited return to normal function after prolonged CPR with no response. Tanna would like to continue resuscitation at this time. - Related Data Allergies Allergy/AdvReac Type Severity Reaction Status Date / Time Penicillins Allergy Unknown Edema Verified 07/31/19 10:30 shellfish derived Allergy Unknown Anaphylactic Verified 07/31/19 10:30 Shock Sulfa (Sulfonamide Allergy Unknown Edema Verified 07/31/19 10:30 Antibiotics) clonidine AdvReac Intermediate Lethargy Verified 07/31/19 10:30 klonopin AdvReac Lethargy Uncoded 07/31/19 10:30 Home Meds: Home Meds guaiFENesin [Mucinex] 1,200 mg PO BID 10/02/14 [History] Omeprazole 20 mg PO DAILY 11/04/14 [History] Desvenlafaxine [Pristiq] 50 mg PO QPM 01/03/16 [History] traMADol [Ultram] 50 mg PO TID 01/03/16 [History] Melatonin 5 mg PO BEDTIME 06/22/16 [History] Multivitamins [Childrens Chewable Vitamin] 1 tab PO DAILY@1200 06/22/16 [History ] Digoxin [Lanoxin] 125 mcg PO DAILY tablet 04/01/17 [Rx] Insulin Aspart [NovoLOG] 0 unit SUBCUT TIDMEALS pen 04/01/17 [Rx] Formoterol Fumarate [Perforomist] 1 vial INH BID 09/27/17 [History] Furosemide 40 mg PO DAILY 09/27/17 [History] Montelukast Sodium 10 mg PO PCLUNCH 09/27/17 [History] Roflumilast [Daliresp] 500 mcg PO DAILY 09/27/17 [History] Metoprolol Tartrate [Lopressor] 25 mg PO Q12HR 30 Days #60 tab 09/29/17 [Rx] QUEtiapine [SEROquel] 25 mg PO BEDTIME 06/05/18 [History] Cholecalciferol (Vitamin D3) [Vitamin D3] 2,000 unit PO DAILY 02/16/19 [History] Insulin Glargine,Hum.Rec.Anlog [Basaglar Kwikpen U-100] 18 units SQ BEDTIME [History] Nystatin 1 dose PO TID 02/16/19 [History] diphenhydrAMINE HCl [Banophen] 25 mg PO BID 02/16/19 [History] predniSONE [Prednisone] 10 mg PO DAILY #28 tablet 02/16/19 [Rx] Diltiazem HCl [Cartia Xt] 240 mg PO DAILY 03/05/19 [History] QUEtiapine [SEROquel] 12.5 mg PO DAILY 03/05/19 [History] hydrOXYzine HCL [hydrOXYzine] 25 mg PO TID PRN 03/05/19 [History] Albuterol [Proventil Neb Soln] 2.5 mg NEB Q6H PRN neb 03/06/19 [Rx] Albuterol [Ventolin HFA] 8 gm INH Q4H PRN inhaler 03/06/19 [Rx] Budesonide [Pulmicort] 0.5 mg NEB BID neb 03/06/19 [Rx] Umeclidinium [place] [Incruse Ellipta] 1 puff IH DAILY 03/06/19 [Rx] Warfarin Sodium [Coumadin] 8 mg PO DAILY@1800 03/06/19 [Rx] Fluconazole [Diflucan] 150 mg PO ONETIME #2 tab 06/29/19 [Rx] Past Medical History HEENT History: Reports: Allergic Rhinitis, Hard of Hearing, Impaired Vision, Other (See Below) Other HEENT History: trach placed x 2 years ago Cardiovascular History: Reports: Heart Failure, Hypertension, Other (See Below) Other Cardiovascular History: a flutter Respiratory History: Reports: SOB Other Respiratory History: SOB excessive plegm Gastrointestinal History: Reports: Chronic Constipation, GERD Genitourinary History: Reports: Chronic Renal Insuffiency, UTI, Recurrent Other Genitourinary History: no uti recently 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 Musculoskeletal History: Reports: Arthritis, Back Pain, Chronic, Neck Pain, Chronic Neurological History: Reports: Migraines Psychiatric History: Reports: Anxiety, Depression Endocrine/Metabolic History: Reports: Diabetes, Type II Hematologic History: Reports: Anemia Oncologic (Cancer) History: Reports: Lung Dermatologic History: Reports: Other (See Below) Other Dermatologic History: bruises easily - Infectious Disease History Infectious Disease History: Reports: Chicken Pox, 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, Other - Past Surgical History HEENT Surgical History: Reports: Other (See Below) GI Surgical History: Reports: Hernia, Abdominal Oncologic Surgical History: Reports: Other (See Below) Other Oncologic Surgeries/Procedures: hx biopsy of lung for cancer diagnosis Social & Family History - Family History Family Medical History: Noncontributory Cardiac: Reports: Hypertension Respiratory: Reports: Asthma, COPD Psychiatric: Reports: Anxiety - Caffeine Use Caffeine Use: Reports: None - Living Situation & Occupation Living situation: Reports: Single, with Significant Other Occupation: Disabled ED ROS GENERAL - Review of Systems Review Of Systems: Unable To Obtain Reason Not Obtained: Pt is unresponsive at this time. ED EXAM, CPR - Physical Exam Exam: See Below Limited By: Unresponsive Respiratory Chest: Other (CPR in progress and high flow oxygen per ambu to trach. no breath sounds) Cardiovascular: CPR In Progress Course - Orders/Labs/Meds Orders: Active Orders 24 hr Category Date Time Status Cardiac Monitoring [RC] .As Directed Care 08/14/19 13:32 Active Oxygen Therapy Adult [Oxygen Therapy] [RC] ASDIRECTED Care 08/14/19 13:25 Active Pulse Oximetry [RC] CONTINUOUS Care 08/14/19 13:30 Active Sodium Chloride 0.9% [Saline Flush] Med 08/14/19 13:25 Active 10 ml FLUSH ASDIRECTED PRN IO Insertion [Intraosseous Insertion] [OM.PC] Routine Oth 08/14/19 13:32 Ordered Peripheral IV Insertion Adult [OM.PC] Urgent Oth 08/14/19 13:25 Ordered Resuscitation Status Routine Resus Stat 08/14/19 13:25 Ordered Medication Orders Sodium Chloride (Saline Flush) 10 ml FLUSH ASDIRECTED PRN PRN Reason: Keep Vein Open Meds: Medications Generic Name Dose Route Start Last Admin Trade Name Dilma PRN Reason Stop Dose Admin Sodium Chloride 10 ml 08/14/19 13:25 Saline Flush FLUSH ASDIRECTED PRN Keep Vein Open Discontinued Medications Generic Name Dose Route Start Last Admin Trade Name Dilma PRN Reason Stop Dose Admin Epinephrine HCl 1 mg 08/14/19 13:31 08/14/19 13:31 Adrenalin IVPUSH 08/14/19 13:32 1 mg NOW ONE Administration Epinephrine HCl 1 mg 08/14/19 13:30 08/14/19 13:30 Adrenalin IVPUSH 08/14/19 13:31 1 mg NOW ONE Administration - Re-Assessments/Exams Free Text/Narrative Re-Assessment/Exam: 08/14/19 17:42 LE Critical care time for this provider and Dr Olvera from time of arrival 13:13 to 13:34. Intraosseous started to right lower leg. Epinephrine 1mg X 2 given, continued CPR and no response. No pulse on telemetry monitor and no return of respiration. Pupils are fixed. Asystole with no response to code. CPR continued to 13:34 with no response since 12:30. Dr Olvera calls to stop code and time of 13:34. Daughter is present and provided support/comfort. After preparation of body, family viewing and Numerical Control Machine Tool Operator Deedee Lindsey is present with family to provide support and prayer. Rolando contacted per staff and flight team canceled. Departure - Departure Time of Disposition: 13:34 Disposition: 20 Preliminary Cause of *Q: Cardiac Arrest Clinical Impression: Cardiac arrest, Respiratory arrest - Discharge Information Referrals: PCP,None [Primary Care Provider] - Forms: ED Department Discharge Sepsis Event Note - Focused Exam Date Exam was Performed: 08/14/19 Time Exam was Performed: 17:35 - My Orders Last 24 Hours: My Active Orders 08/14/19 13:25 Oxygen Therapy Adult [Oxygen Therapy] [RC] ASDIRECTED Sodium Chloride 0.9% [Saline Flush] 10 ml FLUSH ASDIRECTED PRN Peripheral IV Insertion Adult [OM.PC] Urgent Resuscitation Status Routine 08/14/19 13:30 Pulse Oximetry [RC] CONTINUOUS 08/14/19 13:32 Cardiac Monitoring [RC] .As Directed IO Insertion [Intraosseous Insertion] [OM.PC] Routine - Assessment/Plan Last 24 Hours: My Active Orders 08/14/19 13:25 Oxygen Therapy Adult [Oxygen Therapy] [RC] ASDIRECTED Sodium Chloride 0.9% [Saline Flush] 10 ml FLUSH ASDIRECTED PRN Peripheral IV Insertion Adult [OM.PC] Urgent Resuscitation Status Routine 08/14/19 13:30 Pulse Oximetry [RC] CONTINUOUS 08/14/19 13:32 Cardiac Monitoring [RC] .As Directed IO Insertion [Intraosseous Insertion] [OM.PC] Routine Plan: CPR continued to 13:34 with no response since 12:30. Dr Olvera calls to stop code and time of 13:34. Daughter is present and provided support/comfort. After preparation of body, family viewing and Numerical Control Machine Tool Operator Deedee Lindsey is present with family to provide support and prayer. Rolando contacted per staff and flight team canceled.
== END 2019-08-14 22:42 | disposition expired ==
LOC: LB.ED 13:13
DX: I46.9 Cardiac arrest, cause unspecified (principal); I13.10 Hypertensive heart and chronic kidney disease without heart failure, with stage 1 through stage 4 chronic kidney disease, or unspecified chronic kidney disease; E11.22 Type 2 diabetes mellitus with diabetic chronic kidney disease; N18.9 Chronic kidney disease, unspecified; I50.9 Heart failure, unspecified; D63.1 Anemia in chronic kidney disease; Z88.0 Allergy status to penicillin; Z91.013 Allergy to seafood; Z88.2 Allergy status to sulfonamides; Z88.8 Allergy status to other drugs, medicaments and biological substances; K21.9 Gastro-esophageal reflux disease without esophagitis
CPT/HCPCS: 36680; 92950; 99285-25; A0425; A0429; J0171